=== PATIENT | male | born 1960 | race Caucasian/White ===

== ENCOUNTER 2023-01-28 13:26 | Outpatient (OUT) | payer BC, SELFPAY ==
[2023-01-28 16:41] LABS: Thyroid Stimulating Hormone 2.537 uIU/mL (0.358-3.740)
== END 2023-01-28 13:27 | disposition home or self-care (01) ==
LOC: LAB 13:27
PROVIDERS: Visit Provider Nurse Practitioner Adult Health
DX: G62.9 Polyneuropathy, unspecified (principal)
CPT/HCPCS: 36415; 82607; 82746; 84443

== ENCOUNTER 2023-03-06 08:30 | Outpatient (OUT) | payer BC, SELFPAY ==
--- NOTE | 2023-03-06 08:36 | MR_ITS ---
[address] [address] Patient Name: JULISSA ROWLAND MRN: [id number] date: 1960 Sex: M Assigned Patient Location: MRI Current Patient Location: MRI Accession/Order Number: [id number] Exam Date: 03/06/2023 09:05 Report Date: 03/06/2023 15:48 At the request of: MAIRO BILLINGS Procedure: MR lumbar spine wo con EXAM: MR lumbar spine wo con HISTORY: Left lower extremity pain with left leg radiculopathy for 6 months. Left leg weakness. M79.605 COMPARISON: Abdomen and pelvis CT from 04/16/2011. TECHNIQUE: Multiplanar and multisequence imaging of the lumbar spine was performed without contrast. FINDINGS: Anterolisthesis of L4 on L5 measures 2 mm. No acute fracture is identified. There is disc desiccation and anterior endplate spurring throughout the lumbar spine. There is mild disc space narrowing at T12-L1. A hemangioma in the L3 vertebral body on the right as demonstrated by increased T1 and T2 signal measuring 1.5 cm in diameter. No acute abnormality is identified involving visualized intrapelvic or intra-abdominal structures. There is mild curvature of the lumbar spine convex to the right. The visualized aorta is normal in diameter. The upper sacrum appears intact. No pars defects are identified. The conus terminates at the L1 level. L5-S1: There is a 3 mm broad-based disc protrusion with moderate bilateral facet arthropathy. Mild bilateral foraminal narrowing is evident without central stenosis. L4-L5: Anterolisthesis of L4 on L5 measures 2 mm with moderate to severe facet arthropathy. There is mild bilateral foraminal narrowing without central stenosis. L3-L4: There are small subarticular disc protrusions with moderate associated facet arthropathy resulting in minimal foraminal narrowing without central stenosis. L2-L3: There are small subarticular disc protrusions and mild associated facet arthropathy without central or foraminal stenosis. L1-L2: No focal disc herniation is evident. There is no central or foraminal stenosis. MR/MR lumbar spine wo con IMPRESSION: 1. There is grade 1 anterolisthesis of L4 on L5 related to moderate to severe facet arthropathy. 2. Discogenic change and facet arthropathy as described above resulting in mild foraminal narrowing at L4-L5 and L5-S1. 3. No central stenosis. No acute fracture. Electronically authenticated by: YUNIOR TAVAREZ Date: 03/06/2023 15:48
== END 2023-03-06 08:31 | disposition home or self-care (01) ==
LOC: MRI 08:30
PROVIDERS: Visit Provider Nurse Practitioner Adult Health
DX: M79.605 Pain in left leg (principal)
CPT/HCPCS: 72148

== ENCOUNTER 2024-05-04 14:07 | Outpatient (OUT) | payer BC, SELFPAY ==
--- NOTE | 2024-05-04 14:09 | XR_ITS ---
The [address] [address] Patient Name: JULISSA ROWLAND MRN: [id number] date: 1960 Sex: M Assigned Patient Location: [facility] Current Patient Location: Accession/Order Number: [id number] Exam Date: 05/04/2024 14:30 Report Date: 05/05/2024 07:23 At the request of: ALESSANDRA MURILLO Procedure: XR foot LT min 3V PROCEDURE: XR foot LT min 3V COMPARISON: 04/19/2024 HISTORY: Left Foot Pain FINDINGS: BONES:No acute fracture or dislocation. Moderate degenerative changes with marginal osteophyte formation most significant in the midfoot. Moderate enthesopathic spurring of the calcaneus SOFT TISSUES:Moderate dorsal forefoot soft tissue swelling EFFUSION:None visible. OTHER: Negative. XR/XR foot LT min 3V IMPRESSION: Soft tissue swelling, no acute fracture Electronically authenticated by: ELIZABETH PERSAUD Date: 05/05/2024 07:23
== END 2024-05-04 14:08 | disposition home or self-care (01) ==
LOC: RAD 14:07
PROVIDERS: Visit Provider Podiatrist Foot & Ankle Surgery
DX: M79.672 Pain in left foot (principal); M25.475 Effusion, left foot
CPT/HCPCS: 73630

== ENCOUNTER 2024-05-16 12:01 | Outpatient (OUT) | payer BC, SELFPAY ==
--- NOTE | 2024-05-16 13:08 | P.CN_ITS ---
Consult Note: HPI Data of Consult Patient: new to practice Consult date: 05/16/24 Requesting Physician: Apolonia Coleman MD Primary Care Provider: Non-Staff Physician, Consult Narrative Reason for consult: left leg and foot pain Narrative: 64yom who presents for evaluation. several months to years of worsening left lower extremity and foot pain. had bilateral tkas. lumbar mri significant for stenosis at l4-5 and l5-s1, as well as moderate to severe facet arthropathy at these levels. has engaged in >6 weeks of provider directed home exercises, without significant benefit. uses otc meds, has tried lyrica. denies adverse med side effects. cc:: CC: Apolonia Coleman MD Review of Systems ROS Status of ROS 10 or more systems reviewed and unremark able except as noted in history and below Exam Narrative Exam Narrative: Psych-alert and oriented x 3. Attentive and appropriate, constitutionally normal, displays normal mood and affect per situation. There are no obvious deficits in memory, reasoning, or intellect.? Skin-no obvious rashes, bruising, erythema noted to the patient's area of pain.? Extremities- extremities are warm with minimal edema and palpable pulses. Lumbar-tenderness to palpation noted in the lumbar spine and paraspinal musculature. Pain is elicited with flexion, extension, and lateral rotation of the lumbar spine. Range of motion is diminished with these motions. Facet loading maneuvers are positive. Strength-noted to be unremarkable with the exception of decreased strength rated at 4 out of 5 in left anterior tibialis, posterior tibialis. Sensory-no notable sensory deficits in the bilateral lower extremities to touch or pinprick in all dermatomal distributions with the exception to decreased sensation to the left L4, L5, S1 dermatomal distribution Coordination remains intact.? Gait remains non-antalgic. Assessment and Plan Assessment and Plan (1) Lumbar stenosis with neurogenic claudication: (2) Lumbar spondylosis: Plan 64yom who presents for evaluation. failed conservative measures, as noted. imaging reviewed, as noted. given symptoms and imaging, prudent to attempt left l4-5, l5-s1 tfesi under fluoroscopic guidance. he is in agreement. meds reviewed, no changes. follow up after procedure.
== END 2024-05-16 12:02 | disposition home or self-care (01) ==
LOC: PM 12:02
PROVIDERS: Visit Provider Anesthesiology
DX: M48.062 Spinal stenosis, lumbar region with neurogenic claudication (principal); M47.816 Spondylosis without myelopathy or radiculopathy, lumbar region
CPT/HCPCS: G0463

== ENCOUNTER 2024-06-06 08:01 | Day surgery (SDC) | payer BC, SELFPAY ==
[2024-06-06 08:37] VITALS: BP 165/90; PULSE 75; TEMP 36.8; O2SAT 97
[2024-06-06 09:12] VITALS: BP 189/95; BP 201/96; PULSE 77; PULSE 80; O2SAT 95
--- NOTE | 2024-06-06 09:16 | P.ON_ITS ---
Date of procedure: 06/06/24 Pre-op diagnosis: Pain due to lumbar stenosis with neurogenic claudication Post-op diagnosis: same as pre-op Procedure: Procedure: Left L4-5, L5-S1 transforaminal epidural steroid injection Medications: Bupivacaine 0.25% 2cc, lidocaine 2% 1cc, depomedrol 80mg The patient was seen and examined in the preoperative holding area.? Informed consent was obtained and placed on the chart.? Patient was brought to the medical procedure unit and placed in the prone position where a timeout was completed verifying the correct patient, procedure site, position, and planned special equipment using sterile aseptic technique.? Under direct fluoroscopic visualization a 25-gauge Quincke tipped spinal needle was advanced to the designated neural foramen where contrast dye was injected to show adequate spread.? The needle was inserted at level left L4-5. There was no evidence of vascular or adverse uptake.? Epidural spread was appreciated.? The above- mentioned injectate was then placed in a 1.5 mL aliquot preceded by negative aspiration.? The needle was removed. The needle was inserted and the procedure repeated at level left L5-S1.? The surgery site was covered.? Patient was taken to the postprocedural recovery area and monitored for an appropriate length of time before found suitable for discharge in the accompaniment of a responsible adult. Anesthesia: Local Surgeon: Apolonia Coleman Pathology: none sent Condition: stable Disposition: no change
[2024-06-06] MEDS: 0.9 % SODIUM CHLORIDE 10 ML SYRINGE - SALINE FLUSH INJ (09:17)
[2024-06-06] MEDS: IOHEXOL 240 MG/ML - 10 ML VIAL 12 MG INJ (09:17)
[2024-06-06] MEDS: LIDOCAINE HCL 2% 400 MG/20 ML MDV 3 ML INJ (09:17)
[2024-06-06] MEDS: BUPIVACAINE HCL 0.25% PF 25 MG/10 ML VIAL INJ (09:17)
[2024-06-06] MEDS: METHYLPREDNISOLONE ACETATE 80 MG/ML VIAL INJ (09:18)
== END 2024-06-06 09:23 | disposition home or self-care (01) ==
LOC: SURGOUT 08:01
PROVIDERS: Visit Provider Anesthesiology
DX: M48.062 Spinal stenosis, lumbar region with neurogenic claudication (principal)
CPT/HCPCS: 64483; 64484; J0665; J1010; Q9966

== ENCOUNTER 2024-06-15 13:42 | Outpatient (OUT) | payer BC, SELFPAY ==
--- NOTE | 2024-06-15 14:11 | PM.CN ---
Consult Note: HPI Data of Consult Patient: known to practice within the last 3 years Requesting Physician: Tea Baig NP Primary Care Provider: Non-Staff Physician, Consult Narrative Reason for consult: f/u Narrative: Júnior Chu a pleasant 64 year old male presents for evaluation of chronic left foot/LE pain. Pain now 3/10 increasing to 5/10, SARAH 16%. Pt reporting >50% improvement in pain and functional ability, feels much better, from recent left L4/5 L5/S1 TFESI. Reports moderate improvement in pain as well as ability to stand and walk for longer periods of time. denies falls/injury. no longer taking pregabalin 50mg BID due to ineffectiveness and brain fog. cc:: CC: Tea Baig NP Review of Systems ROS Status of ROS 10 or more systems reviewed and unremarkable except as noted in history and below Musculoskeletal Reports: extremity pain PFSH PFS Medical History (Updated 06/06/24 @ 08:35 by Nikki Pham) Neck pain ?M54.2 - Cervicalgia (ICD-10) Obesity ?E66.9 - Obesity, unspecified (ICD-10) Kidney stone ?N20.0 - Calculus of kidney (ICD-10) Sleep apnea ?G47.30 - Sleep apnea, unspecified (ICD-10) Surgical History Hx of total knee arthroplasty ?Z96.659 - Presence of unspecified artificial knee joint (ICD-10) Meds Home Medications and Allergies Home Medications ?Medication ?Instructions ?Recorded ?Confirmed ?Type tamsulosin 0.4 mg capsule mg PO 06/06/24 History Allergies Allergy/AdvReac Type Severity Reaction Status Date / Time No Known Drug Allergies Allergy Verified 06/06/24 08:40 Exam Constitutional Documenting provider has reviewed patient's vital signs: yes Common normals: no apparent distress, oriented x3, healthy appearing, alert and well nourished General appearance: cooperative Nutritional appearance: obese HENMT Common normals: normocephalic, hearing grossly normal bilaterally and moist oral mucous membranes Head and scalp: normocephalic Eye Common normals: PERRL Pupil: PERRL Neck & C-Spine Common normals: full ROM General: normal visual inspection Chest Common normals: inspection of chest normal Respiratory Common normals: normal respiratory effort, no retractions and no use of accessory muscles Back & Pelvis Lumbar spine/lower back: ROM limited, pain with ROM and straight leg raise positive left Other: sensation intact BLE strength 5/5 in BLE Neuro Common normals: oriented x3, CN's II-XII intact bilaterally, moves all extremities, no focal motor deficits, no sensory deficits noted and deep tendon reflexes 2+ bilaterally Sensorium/orientation: alert Motor exam: strength 5/5 throughout and no movement abnormalities noted Psych Common normals: mental status grossly normal, thought process normal, cooperative, affect normal, speech normal and activity/motor behavior normal Speech: normal speech Thought process: normal thought process Results Additional Findings Additional findings: If on a controlled substance or opioids, I have checked an [place] report on this patient and there are no aberrancies noted in the prescribing history.??If on a controlled substance or opioid a drug screen was completed and reviewed within the last year, and if there has not been a drug screen completed we ordered one today to monitor higher risk, state monitored pain medication use. As part of providing excellent, safe, comprehensive care, the following was completed at our patient's visit: 1. A medication reconciliation and review to ensure accurate knowledge of current/active medications, including asking our patients to inform us about any [id number] medications or herbal remedies/nutritional supplements/alternative remedies. 2. A review to specifically ensure our patients have had annual screening for screening for depression, screening for tobacco use, and screening for unhealthy alcohol use. For concerning screenings had a discussion with the patient, provided patient education, and recommended follow-up with primary care provider when appropriate. If patient noted with a risk of falling, they received education on strength, gait, and balance training to prevent future risk of falling. Portions of this note may have been carried over from the previous visit and updated as appropriate. Please note this office utilizes paper charting in addition to the electronic medical record. A list of current medications, vitals, and PMH is available there as the clinical staff outside of myself do not have access to [facility] charting during the clinic day operations. As part of providing quality comprehensive care the current medications, vitals, and PMH were reviewed in the paper chart. Assessment and Plan Assessment and Plan (1) Lumbar stenosis with neurogenic claudication: (2) Lumbar spondylosis: Plan continue HEP as tolerated dc lyrica f/u 3 months, sooner if needed
== END 2024-06-15 13:43 | disposition home or self-care (01) ==
LOC: PM 13:43
PROVIDERS: Visit Provider Nurse Practitioner
DX: M48.062 Spinal stenosis, lumbar region with neurogenic claudication (principal); M47.816 Spondylosis without myelopathy or radiculopathy, lumbar region
CPT/HCPCS: G0463

== ENCOUNTER 2024-08-31 10:20 | Outpatient (OUT) | payer BC, SELFPAY ==
--- OUTSIDE RECORDS SUMMARY | 2024-08-31 10:26 | XMS_ITS | CCD ---
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 Name Role Phone EBRAHEIM, ALEK Unavailable Unavailable EBRAHEIM, ALEK Unavailable Unavailable STEPANIC, KRISTIE C Unavailable Unavailable LUIS, FATOU Unavailable Unavailable [place] Unavailable Unavailable EBRAHEIM, ALEK Unavailable Unavailable ROXANN, MEG M Unavailable Unavailable ROXANN, MEG M Unavailable Unavailable ROXANN, MEG M Unavailable Unavailable LUIS, FATOU Unavailable Unavailable EBRAHEIM, ALEK Unavailable Unavailable EBRAHEIM, ALEK Unavailable Unavailable LUIS, FATOU Unavailable Unavailable LUIS, FATOU Unavailable Unavailable [place] Unavailable Unavailable EBRAHEIM, ALEK Unavailable Unavailable [place] Unavailable Unavailable CASABIANCA, ABEL Unavailable Unavailable EBRAHEIM, ALEK Unavailable Unavailable EBRAHEIM, ALEK Unavailable Unavailable EBRAHEIM, ALEK Unavailable Unavailable LUIS, FATOU Unavailable Unavailable STEPANIC, KRISTIE Unavailable Unavailable STEPANIC, KRISTIE Unavailable Unavailable LUIS, FATOU Unavailable Unavailable STEPANIC, KRISTIE Unavailable Unavailable STEPANIC, KRISTIE Unavailable Unavailable STEPANIC, KRISTIE Unavailable Unavailable LUIS, FATOU Unavailable Unavailable STEPANIC, KRISTIE Unavailable Unavailable SYDNEE LARSEN Unavailable Unavailable POTTERLADAN S Unavailable Unavailable MISC, DOCTOR Unavailable Unavailable MISC, DOCTOR Unavailable Unavailable MISC, DOCTOR Unavailable Unavailable ELIZABETH RICO V Unavailable Unavailable MISC, DOCTOR Unavailable Unavailable Bakari White Unavailable DO Bakari White Primary Care Provider [phone] DO Bakari White Attending Provider [phone] SALOMON Diehl Emergency Provider [phone] Unavailable Primary Care Provider Fatou Levy MD Primary Care Provider [phone] MALIKA, AJAY E Referring Unavailable MALIKA, AJAY E Admitting Unavailable MALIKA, AJAY E Attending Unavailable MALIKA, AJAY E Admitting Unavailable MALIKA, AJAY E Attending Unavailable BRANIECKI, BAKARI A Primary Care Unavailable SASHA CASTANEDA Consulting Unavailable MALIKA, AJAY E Admitting Unavailable MALIKA, AJAY E Attending Unavailable IVANIA MOSLEY Consulting Unavailable FATOU RIDLEY Primary Care Unavailable MALIKA, AJAY E Admitting Unavailable MALIKA, AJAY E Attending Unavailable BRANIECKI, BAKARI A Primary Care Unavailable MALIKA, AJAY E Admitting Unavailable MALIKA, AJAY E Attending Unavailable MALIKA, AJAY E Referring Unavailable NEVERAUSKAS, TYLER Anand Attending Unavailab le BRANIECKI, BAKARI A Primary Care Unavailable NEVERAUSKAS, TYLER Anand Attending Unavailab le NEVERAUSKAS, TYLER Anand Referring Unavailab le BRANIECKI, BAKARI A Primary Care Unavailable NEVERAUSKAS, TYLER Anand Attending Unavailab le NEVERAUSKAS, TYLER Anand Referring Unavailab le BRANIECKI, BAKARI A Primary Care Unavailable NEVERAUSKAS, TYLER Anand Attending Unavailab le NEVERAUSKAS, TYLER Anand Referring Unavailab le BRANIECKI, BAKARI A Primary Care Unavailable BRANIECKI, BAKARI A Primary Care Unavailable MERCEDEZ VILLANUEVA Attending Unavailable Je OCONNOR, Bakari Moise Primary Care Provider Je ELIZABETH, Bakari Primary Care Provider Je ELIZABETH, Bakari Attending Provider [phone] Je OCONNOR, Bakari Moise Primary Care Provider Manny OCONNOR, Elda Unavailable Darlene Salcedo Unavailable Eugenia Torres Unavailable Bakari White Admitting Unavailable Branieckmarkos, Bakari Attending Unavailable Je, Bakari Primary Care Unavailable Je, Bakari Admitting Unavailable Brandevancki, Bakari Attending Unavailable Je, Bakari Primary Care Unavailable Virginia OCONNOR, Apolonia Leung Attending Unavailable Virginia OCONNOR, Apolonia Leung Attending Unavailable DUSTY PATTERSON Attending Unavailable ALESSANDRA MURILLO Referring Unavailable LOUISA GUY Attending Unavailable ALESSANDRA MURILLO Referring Unavailable MARIO MENSAH Attending Unavailable DARLENE BRITO Attending Unavailable Unavailable Unavailable Unavailable Allergies Allergy Classification Reported Allergen(s) Allergy Type Date of Onset Reaction(s) Facility (2 sources) cephalexin Drug Allergy 11-02-2017 FAHAD SCOTT [facility] Repository (1 source) vancomycin; Translations: [VANCOMYCIN] Drug Allergy 11-20-2017 [facility] Repository (18 sources) Cephalexin Drug Allergy rash [facility] Other (1 source) Cephalexin Drug Allergy 04-19-2024 [facility] Repository Medications Current Medications Medication Drug Class(es) Dates Sig (Normalized) Sig (Original) acetaminophen 325 mg / HYDROcodone bitartrate 5 mg oral tablet (9 sources) Opioid Agonist Start: 06-13-2022 End: 06-20-2022 HYDROcodone-acetam inophen (NORCO) 5-325 MG per tablet Indications: S/P TKR (total knee replacement) using cement, left Take 1-2 tablets by mouth every 4 hours as needed for Pain for up to 7 days. Max Daily Amount: 12 tablets 40 tablet 0 06/13/2022 06/20/2022 Active Start: 06-12-2022 HYDROcodone-ac etaminophen (NORCO) 5-325 MG per tablet 1 tablet Start: 01-29-2022 End: 04-19-2024 take 1 tablet by mouth every six hours as needed for pain Hydrocodone-Acetaminophen 5-325 mg table t Discontinued 1 TAB PO Q6H as needed for pain 05 03January 29, 2022 April 19, 2024 2:16pm Start: 01-29-2022 take 1 tablet by arabella th every six hours Hydrocodone-Acetaminophen Active 1 TAB P O Q6H 12 January 29, 2022 [id number] 200 actuat albuterol 0.09 mg/actuat metered dose inhaler (3 sources) beta2-Adrenergic Agonist Start: 05-04-2022 take 2 puff(s) by inhalation every four hours as needed Albuterol Sulfate HFA 108 (90 Base) MCG/ACT 2 puffs as needed Inhalation every 4 hrs May, Active Start: 06-03-2021 Albuterol Sulfate 90 mcg/actuation HFA aerosol inhaler (2 sources) Start: 07-11-2024 Albuterol Sulfate 90 mcg/actuation HFA aerosol inhaler Active 2 INH INHALATION EVERY 4-6 HOURS as needed for shortness of breath or wheezing 6.7 July 11, 2024 12:00am azithromycin 250 mg oral tablet (2 sources) Macrolide Antimicrobial Start: 05-23-2022 Zithromax Z-Sang 250 MG 2 tablets on the first day, then 1 tablet daily for 4 days Orally Once a day for 5 day(s) May, Active benzocaine 6 mg / menthol 10 mg oral lozenge (1 source) Standardized Chemical Allergen Start: 06-12-2022 Benzocaine-Menthol (CEPACOL) 1 lozenge benzonatate 200 mg oral capsule (1 source) Non-narcotic Antitussive Start: 07-15-2024 take 1 capsule by mouth three times daily as needed for cough Benzonatate 200 mg capsule Active 200 MG PO Three times daily as needed for cough July 15, 2024 12:00am DULoxetine 30 mg delayed release oral capsule (9 sources) Serotonin and Norepinephrine Reuptake Inhibitor Start: 03-02-2024 End: 05-31-2024 take 1 capsule by mouth in the morning DULoxetine (Cymbalta) [address] capsule Indications: Polyneuropathy Take 1 capsule (30 mg) by mouth in the morning and 1 capsule (30 mg) before bedtime. Do not crush or chew.. 60 capsule 2 03/02/2024 Active 0.4 ml enoxaparin sodium 100 mg/ml prefilled syringe (1 source) Low Molecular Weight Heparin Start: 06-13-2022 enoxaparin (LOVENOX) injection 40 mg furosemide 20 mg oral tablet (2 sources) Loop Diuretic Start: 05-19-2023 take 1 tablet by mouth every twenty-four hours Furosemide 20 MG 1 tablet Orally Once a day for 90 days May, Active gabapentin 300 mg oral capsule (3 sources) Anti-epileptic Agent Start: 09-27-2023 End: 03-02-2024 take 1 capsule by mouth in the morning, then take 1 capsule by mouth in the evening, then take 1 capsule by mouth at bedtime gabapentin (Neurontin) 300 MG capsule Take 300 mg by mouth in the morning and 300 mg in the evening and 300 mg before bedtime. 09/27/2023 03/02/2024 Discontinued (Ineffective) ipratropium bromide 0.042 mg/actuat metered dose nasal spray (2 sources) Anticholinergic take 2 spray(s) by inhalation three times daily Ipratropium [place] 0.06 % 2 sprays in each nostril Inhalation Three times a day for 30 day(s) Active pregabalin 50 mg oral capsule (6 sources) Start: 04-13-2024 End: 06-12-2024 take 1 capsule by mouth in the morning pregabalin (Lyrica) 50 MG capsule Indications: Polyneuropathy Take 1 capsule (50 mg) by mouth in the morning and 1 capsule (50 mg) before bedtime. 60 capsule 1 04/13/2024 Active rivaroxaban 10 mg oral tablet (1 source) Factor Xa Inhibitor Start: 06-13-2022 take 1 tablet by mouth once daily at breakfast rivaroxaban (XARELTO) 10 MG TABS tablet Take 1 tablet by mouth daily (with breakfast) 12 tablet 0 06/13/2022 Active rOPINIRole 0.25 mg oral tablet (1 source) Nonergot Dopamine Agonist Start: 11-24-2022 take 1 tablet by mouth once daily at bedtime rOPINIRole HCl 0.25 MG 1 tablet 1 to 3 hours before bedtime Orally Once a day for 30 day(s) Oct, Active tiZANidine 4 mg oral tablet (5 sources) Central alpha-2 Adrenergic Agonist Start: 01-13-2022 take 1 tablet by mouth every eight hours tiZANidine HCl 4 MG 1 tablet as needed Orally Three times a day for 10 day(s) Dec, Active Completed/Discontinued Medications Medication Drug Class(es) Dates Sig (Normalized) Sig (Original) acetaminophen 325 mg oral tablet (3 sources) Start: 06-12-2022 End: 06-12-2022 take 650 mg by mouth every six hours, then take 4000 mg by mouth every twenty-four hours 650 mg, Oral, EVERY 6 HOURS, First dose on Whit 06/12/22 at 1600, Until Discontinued Maximum dose of acetaminophen is 4000 mg from all sources in 24 hours. Post-op Start: 06-09-2022 End: 06-09-2022 acetaminophen (TYLENOL) tabl et 650 mg calcium chloride 0.0014 meq/ ml / potassium chloride 0.004 meq/ml / sodium chloride 0.103 meq/ml / sodium lactate 0.028 meq/ml injectable solution (3 sources) Start: 06-12-2022 End: 06-13-2022 IntraVENous, at 80 mL/hr, CONTINUOUS, Starting on Thu06/12/22 at 1600 [place] when taking fluids well Post-op Start: 06-12-2022 End: 06-12-2022 lactated ringers infusion Start: 06-09-2022 lactated ringe rs infusion ceFAZolin 1000 mg injection (2 sources) Cephalosporin Antibacterial Start: 06-12-2022 End: 06-13-2022 ceFAZolin (ANCEF) 1 g injection ceFAZolin (ANCEF) 3000 mg in dextrose 5 % 100 mL IVPB (2 sources) Start: 06-12-2022 End: 06-13-2022 3,000 mg, IntraVENous, EVERY 8 HOURS, 2 doses, First dose on Thu06/12/22 at 1830, Last dose on Thu06/13/22 at 0230 Antimicrobial Indications: Surgical Prophylaxis Post-op Start: 06-12-2022 End: 06-12-2022 ceFAZolin (ANCEF) 3000 mg in dextrose 5 % 100 mL IVPB cefTRIAXone (17 sources) Cephalosporin Antibacterial Start: 04-17-2017 Rocephin 500 mg Apr, celecoxib 200 mg oral capsule (20 sources) Nonsteroidal Anti-inflammatory Drug Start: 06-12-2022 celecoxib (CELEBREX) capsule 400 mg Start: 06-09-2022 celecoxib (BRISA EBREX) capsule 400 mg Start: 01-29-2022 End: 04-19-2024 take 1 capsule by mouth twice daily as needed for pain Celecoxib 200 mg capsule Discontinued 200 MG PO Twice daily as needed for pain 180 90 August 27, 2023 9:56am April 19, 2024 2:16pm Start: 01-29-2022 take 200 mg by mouth twice daily Celecoxib Active 200 MG PO Twice daily January 29, 2022 12:00am End: 03-02-2024 take 1 capsule by mouth twice daily as needed for pain celecoxib (CeleBREX) 200 MG capsule TAKE 1 CAPSULE BY MOUTH TWICE DAILY NEEDED FOR PAIN 03/02/2024 Discontinued (Therapy completed) colchicine 0.6 mg oral tablet (2 sources) Start: 03-30-2023 Colchicine 0.6 MG 2 tablets now and 1 tablet in 2 hrs for gout flare Orally as directed for 1 days Mar, Not-Taking/PRN cyclobenzaprine hydrochloride 10 mg oral tablet (8 sources) Muscle Relaxant Start: 01-29-2022 End: 04-19-2024 take 1 tablet by mouth three times daily as needed for pain Cyclobenzaprine 10 mg tablet Discontinued 10 MG PO Three times daily as needed for Pain January 28, 2022 11:00pm April 19, 2024 2:16pm Start: 01-29-2022 take 10 mg by mouth three times daily Cyclobenzaprine Active 10 MG PO Three times daily January 29, 2022 12:00am Start: 01-08-2022 take 1 tablet by arabella th three times daily as needed Cyclobenzaprine HCl 10 MG 1 tablet Orally Three times a day as needed for 10 day(s) Dec, Active dimenhyDRINATE 50 mg oral ta blet (2 sources) Start: 06-12-2022 End: 06-12-2022 dimenhyDRINATE (DRAMAMINE) tablet 50 mg Start: 06-09-2022 End: 06-09-2022 dimenhyDRINATE (DRAMAMINE) t ablet 50 mg 2 ml fentaNYL 0.05 mg/ml injection (2 sources) Opioid Agonist Start: 06-12-2022 End: 06-12-2022 50 mcg, IntraVENous, EVERY 5 MIN PRN, 4 doses, Starting on Whit 06/12/22 at 1421, Until Whit 06/12/22 at 1515, Pain Severe (7-10) Phase I - Initial therapy for severe pain. PACU only Start: 06-12-2022 End: 06-12-2022 25 mcg, IntraVENous, EVERY 5 MIN PRN, 4 doses, Starting on Whit 06/12/22 at 1421, Until Whit 06/12/22 at 1515, Pain Moderate (4-6) Phase I - Initial therapy for moderate pain. PACU only 150 ml glucose 50 mg/ml inje ction (2 sources) Start: 06-12-2022 End: 06-13-2022 dextrose 5 % solution hyaluronate (20 sources) Start: 03-02-2017 Euflexxa 02 Oc t2016 2 mL Start: 02-23-2017 Euflexxa 25 Se p, 2016 1 mL Start: 02-16-2017 Euflexxa 18 Se p, 2016 2 mL Start: 01-26-2017 Euflexxa 28 Au g, 2016 Start: 01-19-2017 Euflexxa 21 Au g2016 2 mL Start: 2017 Euflexxa 14 Au g2016 2 mL methylPREDNISolone 4 mg oral tablet (20 sources) Corticosteroid Start: 07-11-2024 End: 07-19-2024 take 1 tablet by mouth once Methylprednisolone (Medrol (Sang)) 4 mg tablets,dose pack Discontinued 0 PO per package directions July 11, 2024 12:00am July 19, 2024 7:39am PO PER PKG DIR Start: 06-03-2021 Start: 2017 Depo-Medrol 40 mg Dec, 1 mL Start: 12-08-2016 Depo-Medrol 40 mg Nov, 1 mL naproxen 500 mg oral tablet (7 sources) Nonsteroidal Anti-inflammatory Drug Start: 01-29-2022 End: 08-27-2023 take 1 tablet by mouth twice daily as needed for pain Naproxen (Naprosyn) 500 mg tablet Discontinued 500 MG PO Twice daily as needed for pain January 28, 2022 11:00pm August 27, 2023 9:57am Start: 01-29-2022 take 1 tablet by arabella th twice daily Naproxen (Naprosyn) 500 mg tablet Active 500 MG PO Twice daily January 29, 2022 12:00am oseltamivir 75 mg oral capsule (2 sources) Neuraminidase Inhibitor Start: 07-11-2024 End: 07-19-2024 take 1 capsule by mouth twice daily Oseltamivir (Tamiflu) 75 mg capsule Discontinued 75 MG PO Twice daily 03 05July 11, 2024 12:00am July 19, 2024 7:39am 5 ml sodium chloride 9 mg/ml injection (3 sources) Start: 06-12-2022 take 1 dose intravenously twice daily 5-40 mL, IntraVENous, EVERY 12 HOURS SCHEDULED (2 times per day), First dose on Whit 06/12/22 at 2100, Until Discontinued For Line Patency: Peripheral IV = 5 mL; Midline or Central Line = 10 mL/lumen.&nbs p; If following IV push medication, administer flush at same rate as the IV push. Flush volume is determined by type of infusion therapy being given. &nbsp ;For non-viscous solutions use: Periphe ral IV = 5 mL Midline or Central Line = 10 mL/lumen &nb sp;For viscous solutions (i.e. blood components, parenteral nutrition, contrast media, or after obtaining blood sample) use: Periphe ral IV = 10 mL Midline or Central Line = 20 mL/lumen Post-op Start: 06-12-2022 IntraVENous, a t 5-250 mL/hr, PRN, if patient receiving piggyback infusions and maintenance fluids are not ordered OR KVO fluids to protect IV site / prevent frequent line interruptions/ long duration, Starting on Whit 06/12/22 at 1536 For piggyback infusion, administer at same rate as piggyback for a total of 25 mL. Enter 25 mL into dose field and piggyback rate into rate field of order. If piggyback is infusing at a rate less than 100 mL/hr, enter 25 mL into dose field and 100 mL/hr into rate field of order. For KVO fluids, enter rate of 20 mL/hr or less into rate field of order. Post-op Start: 06-12-2022 take 5-40 mL intrave nously once as needed 5-40 mL, IntraVENous, PRN, Starting on Whit 06/12/22 at 1536, Until Discontinued, Line Care, After every IV line use For Line Patency: Peripheral IV = 5 mL; Midline or Central Line = 10 mL/lumen. If following IV push medication, administer flush at same rate as the IV push. Flush volume is determined by type of infusion therapy being given. For non-viscous solutions use: Peripheral IV = 5 mL Midline or Central Line = 10 mL/lumen For viscous solutions (i.e. blood components, parenteral nutrition, contrast media, or after obtaining blood sample) use: Peripheral IV = 10 mL Midline or Central Line = 20 mL/lumen Post-op tamsulosin hydrochloride 0.4 mg oral capsule (6 sources) alpha-Adrenergic Annette Start: 05-27-2024 End: 07-11-2024 take 2 capsules by mouth once daily Tamsulosin (Flomax) 0.4 mg capsule Discontinued 0.8 MG PO Daily 180 May 27, 2024 9:04am July 11, 2024 3:28pm Start: 04-19-2024 End: 05-27-2024 take 1 capsule by mouth once daily Tamsulosin (Flomax) 0.4 mg capsule Discontinued 0.4 MG PO Daily April 19, 2024 12:00am May 27, 2024 9:04am tranexamic acid 650 mg oral tablet (3 sources) Antifibrinolytic Agent Start: 06-13-2022 End: 06-13-2022 tranexamic acid (LYSTEDA) tablet 1,300 mg Start: 06-12-2022 End: 06-12-2022 tranexamic acid (LYSTEDA) ta blet 1,300 mg Start: 06-09-2022 End: 06-09-2022 tranexamic acid (LYSTEDA) ta blet 1,300 mg Triamcinolone (17 sources) Corticosteroid Start: 03-22-2019 Kenalog -40 mg Mar, 40 mg Problems Active Problems Problem Classification Problem Date Documented Date Episodic/Chronic Calculus of urinary tract (11 sources) Kidney stone; Translations: [Calculus of kidney] Episodic Deficiency and other anemia (20 sources) Iron deficiency anemia; Translations: [Other iron deficiency anemias] 08-27-2023 Episodic Deficiency and other anemia (6 sources) Other iron deficiency anemias; Translations: [Other specified iron deficiency anemias] Onset: 04-13-2024 Episodic Disorders of lipid metabolism (20 sources) Mixed hyperlipidemia; Translations: [Mixed hyperlipidemia] Onset: 04-13-2024 Chronic Essential hypertension (1 source) Essential (primary) hypertension; Translations: [ESSENTIAL (PRIMARY) HYPERTENSION] Onset: 11-02-2017 Chronic Gout and other crystal arthropathies (16 sources) Gout; Translations: [Gout, unspecified] 08-27-2023 Chronic Hyperplasia of prostate (9 sources) Benign prostatic hyperplasia; Translations: [Benign prostatic hyperplasia without lower urinary tract symptoms] 04-19-2024 Chronic Influenza (2 sources) Influenza due to Influenza A virus; Translations: [Influenza due to other identified influenza virus with other respiratory manifestations] 07-11-2024 Episodic Mood disorders (13 sources) Mild major depression, single episode; Translations: [Major depressive disorder, single episode, mild] Chronic Open wounds of extremities (4 sources) Unspecified open wound, right knee, subsequent encounter; Translations: [UNSPECIFIED OPEN WOUND, RIGHT KNEE, SUBSEQUENT ENCOUNTER] Onset: 02-17-2018 Episodic Osteoarthritis (20 sources) Osteoarthritis of left knee joint; Translations: [Unilateral primary osteoarthritis, left knee] Onset: 06-09-2022 Chronic Other aftercare (11 sources) Patient encounter status; Translations: [Aftercare following joint replacement surgery] Onset: 05-08-2023 05-08-2023 Chronic Other and unspecified benign neoplasm (4 sources) Benign neoplasm of spinal meninges; Translations: [BENIGN NEOPLASM OF SPINAL MENINGES] Onset: 03-12-2018 Episodic Other connective tissue disease (3 sources) History of total knee arthroplasty; Translations: [Presence of left artificial knee joint] Onset: 06-12-2022 Chronic Other connective tissue disease (1 source) Presence of right artificial knee joint; Translations: [Presence of right artificial knee joint] Onset: 03-16-2023 Chronic Other connective tissue disease (1 source) Presence of left artificial knee joint; Translations: [Presence of left artificial knee joint] Onset: 06-12-2022 Chronic Other connective tissue disease (11 sources) Prepatellar bursitis; Translations: [Prepatellar bursitis, right knee] Episodic Other connective tissue disease (1 source) Neuralgia and neuritis, unspecified Episodic Other connective tissue disease (1 source) Pain in lower limb Onset: 02-24-2024 Episodic Other connective tissue disease (4 sources) Pain in left foot; Translations: [Pain in limb] Onset: 04-19-2024 04-19-2024 Episodic Other connective tissue disease (2 sources) Painful legs and moving toes; Translations: [Pain in left leg] 04-13-2024 Episodic Other connective tissue disease (2 sources) Other symptoms and signs involving the musculoskeletal system; Translations: [Other musculoskeletal symptoms referable to limbs] 06-29-2024 Episodic Other hereditary and degenerative nervous system conditions (19 sources) Restless legs; Translations: [Restless legs syndrome] Onset: 03-02-2024 03-02-2024 Chronic Other liver diseases (20 sources) Steatosis of liver; Translations: [Fatty (change of) liver, not elsewhere classified] 08-27-2023 Chronic Other liver diseases (3 sources) Fatty (change of) liver, not elsewhere classified; Translations: [Fatty (change of) liver, not elsewhere classified] Onset: 04-13-2024 Chronic Other nervous system disorders (11 sources) Neuropathy of lower limb; Translations: [Unspecified mononeuropathy of left lower limb] Chronic Other nervous system disorders (11 sources) Chronic pain; Translations: [Other chronic pain] Chronic Other nervous system disorders (13 sources) Difficulty walking; Translations: [Difficulty in walking, not elsewhere classified] Onset: 05-08-2023 05-08-2023 Chronic Other nervous system disorders (1 source) Neuropathy; Translations: [Polyneuropathy, unspecified] Onset: 03-02-2024 03-02-2024 Chronic Other nervous system disorders (14 sources) Polyneuropathy; Translations: [Polyneuropathy, unspecified] Onset: 03-02-2024 03-02-2024 Chronic Other nervous system disorders (2 sources) Painful legs and moving toes 04-13-2024 Chronic Other non-traumatic joint disorders (11 sources) Pain in left knee; Translations: [Pain in left knee] Episodic Other non-traumatic joint disorders (11 sources) Anterior knee pain; Translations: [Pain in right knee] Episodic Other non-traumatic joint disorders (11 sources) Knee pain; Translations: [Pain in right knee] Episodic Other nutritional; endocrine; and metabolic disorders (9 sources) Morbid (severe) obesity due to excess calories; Translations: [Morbid obesity] Onset: 11-02-2017 Chronic Other nutritional; endocrine; and metabolic disorders (16 sources) Body mass index 40+ - severely obese; Translations: [Body mass index (BMI) 50.0-59.9, adult] Chronic Other nutritional; endocrine; and metabolic disorders (15 sources) Morbid obesity; Translations: [Morbid (severe) obesity due to excess calories] Chronic Other nutritional; endocrine; and metabolic disorders (11 sources) Lipoprotein deficiency disorder; Translations: [Lipoprotein deficiency] Chronic Other nutritional; endocrine; and metabolic disorders (11 sources) Metabolic syndrome X; Translations: [Metabolic syndrome] Chronic Other nutritional; endocrine; and metabolic disorders (11 sources) Simple obesity ; Translations: [Other obesity due to excess calories] Chronic Other nutritional; endocrine; and metabolic disorders (5 sources) Severe obesity; Translations: [Morbid (severe) obesity due to excess calories] Chronic Other nutritional; endocrine; and metabolic disorders (5 sources) Obesity caused by energy imbalance; Translations: [Morbid (severe) obesity due to excess calories] 08-27-2023 Chronic Other upper respiratory disease (11 sources) Chronic rhinitis; Translations: [Chronic rhinitis] Chronic Other upper respiratory disease (11 sources) Seasonal allergic rhinitis; Translations: [Other seasonal allergic rhinitis] Chronic Peripheral and visceral atherosclerosis (4 sources) Peripheral vascular disease; Translations: [Other specified peripheral vascular diseases] 04-13-2024 Chronic Residual codes; unclassified (15 sources) Obstructive sleep apnea of adult; Translations: [Obstructive sleep apnea (adult) (pediatric)] Chronic Residual codes; unclassified (20 sources) Obstructive sleep apnea syndrome; Translations: [Obstructive sleep apnea (adult) (pediatric)] 08-27-2023 Chronic Residual codes; unclassified (5 sources) Obstructive sleep apnea (adult) (pediatric); Translations: [Obstructive sleep apnea (adult)(pediatric)] Chronic Spondylosis; intervertebral disc disorders; other back problems (4 sources) Low back pain; Translations: [Low back pain] 01-29-2022 Episodic Unclassified (5 sources) Body mass index (BMI) 50-59.9 , adult; Translations: [Obstructive sleep apnea (adult) (pediatric)] Onset: 11-02-2017 Chronic Unclassified (6 sources) Elevated C-reactive protein (CRP); Translations: [Encounter for screening for malignant neoplasm of prostate] Onset: 11-09-2017 Episodic Unclassified (2 sources) Sleep apnea, unspecified; Translations: [SLEEP APNEA, UNSPECIFIED] Onset: 11-09-2017 Unclassified (2 sources) Unknown / UNK(Unknown) Onset: 11-02-2017 Unclassified (2 sources) preadmission tessting; Translations: [preadmission tessting] Onset: 05-12-2022 Unclassified (1 source) Medical Screening Onset: 05-29-2023 Unclassified (1 source) Post op problem, cough Onset: 05-29-2023 Varicose veins of lower extremity (1 source) Varicose veins of bilateral lower extremities with pain; Translations: [Varicose veins of bilateral lower extremities with pain] Onset: 02-24-2024 Episodic Viral infection (2 sources) COVID-19; Translations: [COVID-19] Onset: 06-03-2021 Resolved: 06-03-2021 Past or Other Problems Problem Classification Problem Date Documented Date Episodic/Chronic Bacterial infection (2 sources) Methicillin resistant Staphylococcus aureus infection as the cause of diseases classified elsewhere; Translations: [METHICILLIN RESIS STAPH INFCT CAUSING DISEASES CLASSD ELSR] Onset: 11-02-2017 Episodic Chronic obstructive pulmonary disease and bronchiectasis (1 source) Bronchitis, not specified as acute or chronic; Translations: [Bronchitis, not specified as acute or chronic] Onset: 05-29-2023 Episodic Other aftercare (1 source) [facility] (current) use of anticoagulants; 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] Onset: 11-02-2017 Episodic Other connective tissue disease (2 sources) Other infective bursitis, right knee; Translations: [OTHER INFECTIVE BURSITIS, RIGHT KNEE] Onset: 11-02-2017 Episodic Other connective tissue disease (4 sources) Other bursitis of knee, right knee; Translations: [OTHER BURSITIS OF KNEE, RIGHT KNEE] Onset: 11-02-2017 Episodic Other hematologic conditions (1 source) Elevated erythrocyte sedimentation rate; Translations: [ELEVATED ERYTHROCYTE SED RATE] Onset: 11-09-2017 Episodic Other nervous system disorders (1 source) Other acute postprocedural pain; Translations: [OTHER ACUTE POSTPROCEDURAL PAIN] Onset: 11-02-2017 Episodic Other non-traumatic joint disorders (3 sources) Pain in right knee; Translations: [PAIN IN RIGHT KNEE] Onset: 10-30-2017 Episodic Residual codes; unclassified (2 sources) Localized edema; Translations: [Localized edema] Onset: 05-29-2023 Episodic Skin and subcutaneous tissue infections (1 source) Local infection of the skin and subcutaneous tissue, unspecified; Translations: [LOCAL INFECT SKIN SUBQ TISSUE UNS] Onset: 11-02-2017 Episodic Unclassified (3 sources) Low back pain, unspecified M54.50 Onset: 01-08-2022 Resolved: 01-23-2022 Results Test Name Value Interpretation Reference Range Facility Influenza A virus antibody t iter by complement fixationon 07-11-2024 FLUAV Ab CF (S) [Titer] Influenza A virus antibody titer by complement fixation [facility] Influenza virus B Ab [Titer] in Serum by Complement fixationon 07-11-2024 FLUBV Ab CF (S) [Titer] Influenza virus B Ab [Titer] in Serum by Complement fixation [facility] X-ray reportOrdered By: Chaparrita Shepherd on 04-19-2024 Study report [facility] [address] [place] [address] XRay Report Signed Patient: Júnior Rowland MR#: [id number] : 1960 Acct:[id number] Age/Sex: 64 / M ADM Date: 4 Loc: [facility] Room: Type: [facility] Attending Dr: Bakari White DO Copies to: Bakari White DO~ Ordering Provider: Bakari White DO Date of Service: 04/19/24 XR/XR foot LT min 3V*: M79.672 - Pain in left foot LEFT FOOT - 3 views CLINICAL DATA: Left foot pain for the past week involving the metatarsals and toes. No reported injury. COMPARISON: None AP, lateral and oblique views were obtained. There is no evidence of fracture or dislocation. Posterior and plantar calcaneal spurs are visualized. There isalso suspected degenerative change along the dorsum of the tarsals and metatarsal phalangeal joints. There are no significant soft tissue abnormalities. XR/XR foot LT min 3V* IMPRESSION: NO ACUTE BONY FINDINGS. Impression dictated by: Dianne Shepherd M.D.04/19/2024 4:20 PM Dictation Location: [place] [address] Transcribed By: [facility] 04/19/24 1620 Dictated By: Dianne Shepherd MD 04/19/24 1618 Signed By: 04/19/24 1620 [facility] Work Phone: XR foot LT min 3V*on 024 XR foot LT min 3V* [facility] [address] [place] [address] XRay Report Signed Patient: Júnior Rowland MR#: [id number] : 1960 Acct:[id number] Age/Sex: 64 / M ADM Date: 04/19/24 Loc: [facility] Room: Type: [facility] Attending Dr: Bakari White DO Copies to: Bakari White DO Ordering Provider: Bakari White DO Date of Service: 04/19/24 XR/XR foot LT min 3V*: M79.672 - Pain in left foot LEFT FOOT - 3 views CLINICAL DATA: Left foot pain for the past week involving the metatarsals and toes. No reported injury. COMPARISON: None AP, lateral and oblique views were obtained. There is no evidence of fracture or dislocation. Posterior and plantar calcaneal spurs are visualized. There is also suspected degenerative change along the dorsum of the tarsals and metatarsal phalangeal joints. There are no significant soft tissue abnormalities. XR/XR foot LT min 3V* IMPRESSION: NO ACUTE BONY FINDINGS. Impression dictated by: Dianne Shepherd M.D.04/19/2024 4:20 PM Dictation Location: [place] [address] Transcribed By: [facility] 04/19/24 1620 Dictated By: Dianne Shepherd MD 04/19/24 1618 Signed By: 04/19/24 1620 Normal [facility] Alanine aminotransferase [En zymatic activity/volume] in Serum or PlasmaOrdered By: Bakari White on 04-13-2024 ALT [Catalytic activity/Vol] Alanine aminotransferase [Enzymatic activity/volume] in Serum or Plasma [facility] Albumin [Mass/volume] in Ser um or Plasma by Bromocresol green (BCG) dye binding methoOrdered By: Bakari White on 04-13-2024 Albumin BCG dye [Mass/Vol] Albumin [Mass/volume] in Serum or Plasma by Bromocresol green (BCG) dye binding metho 3.5-5.7 [facility] Alkaline phosphatase [Enzyma tic activity/volume] in Serum or PlasmaOrdered By: Bakari White on 04-13-2024 ALP [Catalytic activity/Vol] Alkaline phosphatase [Enzymatic activity/volume] in Serum or Plasma 34-104 [facility] Aspartate aminotransferase [ Enzymatic activity/volume] in Serum or PlasmaOrdered By: Bakari White on 04-13-2024 AST [Catalytic activity/Vol] Aspartate aminotransferase [Enzymatic activity/volume] in Serum or Plasma 13-39 [facility] Basophils Auto (Bld) [#/Vol] Ordered By: Bakari White on 04-13-2024 Basophils (Bld) [#/Vol] Automated basophil count 0.0-0.2 [facility] Basophils/100 WBC Auto (Bld) Ordered By: Bakari White on 04-13-2024 Basophils/100 WBC (Bld) Automated basophil % . [facility] Bilirubin.total [Mass/volume ] in Serum or PlasmaOrdered By: Bakari White on 04-13-2024 Bilirubin [Mass/Vol] Bilirubin.total [Mass/volume] in Serum or Plasma 0.3-1.0 [facility] Calcium [Mass/volume] in Ser um or PlasmaOrdered By: Bakari White on 04-13-2024 Calcium [Mass/Vol] Calcium [Mass/volume ] in Serum or Plasma 8.6-10.3 [facility] Carbon dioxide, total [Moles /volume] in Serum or PlasmaOrdered By: Bakari White on 04-13-2024 CO2 [Moles/Vol] Carbon dioxide, tota l [Moles/volume] in Serum or Plasma High 21.0-31.0 [facility] Chloride [Moles/volume] in S tobias or PlasmaOrdered By: Bakari White on 04-13-2024 Chloride [Moles/Vol] Chloride [Moles/vol ume] in Serum or Plasma 98-107 [facility] Cholesterol [Mass/volume] in Serum or PlasmaOrdered By: Bakari White on 04-13-2024 Cholesterol [Mass/Vol] Cholesterol [Mass/volume] in Serum or Plasma 140-200 [facility] Comment on above: Chol less than 200 m g/dl low riskChol 201-239 mg/dl borderline riskChol 240 mg/dl and greater high risk Cholesterol in HDL [Mass/vol ume] in Serum or PlasmaOrdered By: Bakari White on 04-13-2024 Cholesterol in HDL [Mass/Vol] Serum or plasma high density lipoprotein (HDL) cholesterol measurement [facility] Comment on above: HDL CHOL ATP-III CLA SSIFICATION Cardiovascular RiskHDL > or equal to 60 mg/dL LOWHDL < 40 mg/dL HIGH Cholesterol in LDL Calc [Mas s/Vol]Ordered By: Bakari White on 04-13-2024 Cholesterol in LDL [Mass/Vol] Cholesterol in LDL [Mass/volume] in Serum or Plasma by calculation High 0-100 [facility] Comment on above: LDL ATP III CLASSIFI CATIONLDL less than 100 mg/dL OptimalLDL 100-129 mg/dL Near or above optimalLDL 130-159 mg/dL Borderline highLDL 160-189 mg/dL HighLDL greater than 189 mg/dL Very high Cholesterol in VLDL Calc [Ma ss/Vol]Ordered By: Bakari White on 04-13-2024 Cholesterol in VLDL [Mass/Vol] Cholesterol in VLDL [Mass/volume] in Serum or Plasma by calculation [facility] Complete Blood Count Auto Di ffon 04-13-2024 Basophils (Bld) [#/Vol] 0.1 10*3/uL Normal 0.0-0.2 [facility] Comment on above: Order Comment: Reaso n for Exam Morbid (severe) obesity due to excess calories;Body mass ind Result Comment: PERF ORMED BY: [place] [address] PATHOLOGIST SPECIAL EDUCATION CURRICULUM SPECIALIST CHARLY JOSHI M.D. Performed By: #### P SAS, CMP, CBC, TSH3 wRFLX, LIPID #### [address] Basophils/100 WBC (Bld) 1.0 % Normal . [facility] Comment on above: Order Comment: Reaso n for Exam Morbid (severe) obesity due to excess calories;Body mass ind Performed By: #### P SAS, CMP, CBC, TSH3 wRFLX, LIPID #### [address] Eosinophils (Bld) [#/Vol] 0.2 10*3/uL Normal 0.0-0.45 [facility] Comment on above: Order Comment: Reaso n for Exam Morbid (severe) obesity due to excess calories;Body mass ind Performed By: #### P SAS, CMP, CBC, TSH3 wRFLX, LIPID #### [address] Eosinophils/100 WBC (Bld) 3.3 % Normal . [facility] Comment on above: Order Comment: Reaso n for Exam Morbid (severe) obesity due to excess calories;Body mass ind Performed By: #### P SAS, CMP, CBC, TSH3 wRFLX, LIPID #### [address] Erythrocyte distribution width (RBC) [Ratio] 14.1 % Normal 12.0-14.8 [facility] Comment on above: Order Comment: Reaso n for Exam Morbid (severe) obesity due to excess calories;Body mass ind Performed By: #### P SAS, CMP, CBC, TSH3 wRFLX, LIPID #### [address] Hematocrit (Bld) [Volume fraction] 39.4 % Normal 38.8-50.0 [facility] Comment on above: Order Comment: Reaso n for Exam Morbid (severe) obesity due to excess calories;Body mass ind Performed By: #### P SAS, CMP, CBC, TSH3 wRFLX, LIPID #### [address] Hemoglobin (Bld) [Mass/Vol] 13.1 g/dL Normal 13.0-17.0 [facility] Comment on above: Order Comment: Reaso n for Exam Morbid (severe) obesity due to excess calories;Body mass ind Performed By: #### P SAS, CMP, CBC, TSH3 wRFLX, LIPID #### [address] Lymphocytes (Bld) [#/Vol] 1.1 10*3/uL Normal 1.00-4.8 [facility] Comment on above: Order Comment: Reaso n for Exam Morbid (severe) obesity due to excess calories;Body mass ind Performed By: #### P SAS, CMP, CBC, TSH3 wRFLX, LIPID #### [address] Lymphocytes/100 WBC (Bld) 18.9 % Normal . [facility] Comment on above: Order Comment: Reaso n for Exam Morbid (severe) obesity due to excess calories;Body mass ind Performed By: #### P SAS, CMP, CBC, TSH3 wRFLX, LIPID #### [address] MCH (RBC) [Entitic mass] 28.4 pg Normal 27.5-35.2 [facility] Comment on above: Order Comment: Reaso n for Exam Morbid (severe) obesity due to excess calories;Body mass ind Performed By: #### P SAS, CMP, CBC, TSH3 wRFLX, LIPID #### [address] MCV (RBC) [Entitic vol] 85.6 fL Normal 83.5-101 [facility] Comment on above: Order Comment: Reaso n for Exam Morbid (severe) obesity due to excess calories;Body mass ind Performed By: #### P SAS, CMP, CBC, TSH3 wRFLX, LIPID #### [address] Mean Corpuscular HGB Conc 33.1 g/dL Normal 32.5-35.6 [facility] Comment on above: Order Comment: Reaso n for Exam Morbid (severe) obesity due to excess calories;Body mass ind Performed By: #### P SAS, CMP, CBC, TSH3 wRFLX, LIPID #### [address] Monocytes (Bld) [#/Vol] 0.4 10*3/uL Normal 0.0-0.8 [facility] Comment on above: Order Comment: Reaso n for Exam Morbid (severe) obesity due to excess calories;Body mass ind Performed By: #### P SAS, CMP, CBC, TSH3 wRFLX, LIPID #### [place] [address] [place] Monocytes/100 WBC (Bld) 6.2 % Normal . [facility] Comment on above: Order Comment: Reaso n for Exam Morbid (severe) obesity due to excess calories;Body mass ind Performed By: #### P SAS, CMP, CBC, TSH3 wRFLX, LIPID #### [place] [address] [place] Neutrophils (Bld) [#/Vol] 4.1 10*3/uL Normal 1.8-7.7 [facility] Comment on above: Order Comment: Reaso n for Exam Morbid (severe) obesity due to excess calories;Body mass ind Performed By: #### P SAS, CMP, CBC, TSH3 wRFLX, LIPID #### [place] [address] [place] Neutrophils/100 WBC (Bld) 70.6 % Normal . [facility] Comment on above: Order Comment: Reaso n for Exam Morbid (severe) obesity due to excess calories;Body mass ind Performed By: #### P SAS, CMP, CBC, TSH3 wRFLX, LIPID #### [place] [address] [place] NRBC% 0.2 /100{WBC} Normal 0-0.5 [facility] Comment on above: Order Comment: Reaso n for Exam Morbid (severe) obesity due to excess calories;Body mass ind Performed By: #### P SAS, CMP, CBC, TSH3 wRFLX, LIPID #### [place] [address] [place] Platelet mean volume (Bld) [Entitic vol] 8.2 fL Normal 6.6-10.1 [facility] Comment on above: Order Comment: Reaso n for Exam Morbid (severe) obesity due to excess calories;Body mass ind Performed By: #### P SAS, CMP, CBC, TSH3 wRFLX, LIPID #### [address] Platelets (Bld) [#/Vol] 250 10*3/uL Normal 150-450 [facility] Comment on above: Order Comment: Reaso n for Exam Morbid (severe) obesity due to excess calories;Body mass ind Performed By: #### P SAS, CMP, CBC, TSH3 wRFLX, LIPID #### [facility] [address] RBC (Bld) [#/Vol] 4.60 10*6/uL Normal 3.90-5.60 [facility] Comment on above: Order Comment: Reaso n for Exam Morbid (severe) obesity due to excess calories;Body mass ind Performed By: #### P SAS, CMP, CBC, TSH3 wRFLX, LIPID #### [address] WBC (Bld) [#/Vol] 5.8 10*3/uL Normal 4.1-10.5 [facility] Comment on above: Order Comment: Reaso n for Exam Morbid (severe) obesity due to excess calories;Body mass ind Performed By: #### P SAS, CMP, CBC, TSH3 wRFLX, LIPID #### [address] [facility] 04-13-2024 Albumin [Mass/Vol] 4.3 g/dL Normal 3.5-5.7 [facility] Comment on above: Order Comment: Reaso n for Exam Morbid (severe) obesity due to excess calories;Body mass ind Performed By: #### P SAS, CMP, CBC, TSH3 wRFLX, LIPID #### [address] Albumin/Globulin [Mass ratio] 1.3 {ratio} Normal [facility] Comment on above: Order Comment: Reaso n for Exam Morbid (severe) obesity due to excess calories;Body mass ind Performed By: #### P SAS, CMP, CBC, TSH3 wRFLX, LIPID #### [address] ALP [Catalytic activity/Vol] 56 U/L Normal 34-104 [facility] Comment on above: Order Comment: Reaso n for Exam Morbid (severe) obesity due to excess calories;Body mass ind Performed By: #### P SAS, CMP, CBC, TSH3 wRFLX, LIPID #### [address] ALT [Catalytic activity/Vol] 19 U/L Normal 7-52 [facility] Comment on above: Order Comment: Reaso n for Exam Morbid (severe) obesity due to excess calories;Body mass ind Performed By: #### P SAS, CMP, CBC, TSH3 wRFLX, LIPID #### [address] Anion gap [Moles/Vol] 11.9 mmol/L Normal 6.0-15.0 [facility] Comment on above: Order Comment: Reaso n for Exam Morbid (severe) obesity due to excess calories;Body mass ind Performed By: #### P SAS, CMP, CBC, TSH3 wRFLX, LIPID #### [address] AST [Catalytic activity/Vol] 19 U/L Normal 13-39 [facility] Comment on above: Order Comment: Reaso n for Exam Morbid (severe) obesity due to excess calories;Body mass ind Performed By: #### P SAS, CMP, CBC, TSH3 wRFLX, LIPID #### [address] Bilirubin [Mass/Vol] 0.5 mg/dL Normal 0.3-1.0 [facility] Comment on above: Order Comment: Reaso n for Exam Morbid (severe) obesity due to excess calories;Body mass ind Performed By: #### P SAS, CMP, CBC, TSH3 wRFLX, LIPID #### [facility] [address] [place] [address] [place] Calcium [Mass/Vol] 9.3 mg/dL Normal 8.6-10.3 [facility] Comment on above: Order Comment: Reaso n for Exam Morbid (severe) obesity due to excess calories;Body mass ind Performed By: #### P SAS, CMP, CBC, TSH3 wRFLX, LIPID #### [facility] [address] Chloride [Moles/Vol] 102 mmol/L Normal 98-107 [facility] Comment on above: Order Comment: Reaso n for Exam Morbid (severe) obesity due to excess calories;Body mass ind Performed By: #### P SAS, CMP, CBC, TSH3 wRFLX, LIPID #### [facility] [address] [place] [address] [place] CO2 [Moles/Vol] 31.6 mmol/L High 21.0-31.0 [facility] Comment on above: Order Comment: Reaso n for Exam Morbid (severe) obesity due to excess calories;Body mass ind Performed By: #### P SAS, CMP, CBC, TSH3 wRFLX, LIPID #### [address] Creatinine [Mass/Vol] 0.86 mg/dL Normal 0.70-1.30 [facility] Comment on above: Order Comment: Reaso n for Exam Morbid (severe) obesity due to excess calories;Body mass ind Performed By: #### P SAS, CMP, CBC, TSH3 wRFLX, LIPID #### [facility] [address] [place] [address] [place] GFR/1.73 sq M.predicted MDRD (S/P/Bld) [Vol rate/Area] mL/min/{1.73_m2} Normal [facility] Comment on above: Order Comment: Reaso n for Exam Morbid (severe) obesity due to excess calories;Body mass ind Performed By: #### P SAS, CMP, CBC, TSH3 wRFLX, LIPID #### [facility] [address] [place] [address] [place] Globulin (S) [Mass/Vol] 3.4 g/dL Normal [facility] Comment on above: Order Comment: Reaso n for Exam Morbid (severe) obesity due to excess calories;Body mass ind Performed By: #### P SAS, CMP, CBC, TSH3 wRFLX, LIPID #### [facility] [address] [place] [address] [place] Glucose [Mass/Vol] 98 mg/dL Normal 70-100 [facility] Comment on above: Order Comment: Reaso n for Exam Morbid (severe) obesity due to excess calories;Body mass ind Result Comment: [place] Glucose Reference Range is dependent on time and content of last meal. Glucose of more than 200 mg/dL in a nonstressed, ambulatory subject supports the diagnosis of Diabetes Mellitus. ADA recommended reference range Performed By: #### P SAS, CMP, CBC, TSH3 wRFLX, LIPID #### [facility] [address] [place] [address] [place] Potassium [Moles/Vol] 4.5 mmol/L Normal 3.5-5.1 [facility] Comment on above: Order Comment: Reaso n for Exam Morbid (severe) obesity due to excess calories;Body mass ind Performed By: #### P SAS, CMP, CBC, TSH3 wRFLX, LIPID #### [facility] [address] [place] [id number] [facility] Protein [Mass/Vol] 7.7 g/dL Normal 6.4-8.9 [facility] Comment on above: Order Comment: Reaso n for Exam Morbid (severe) obesity due to excess calories;Body mass ind Performed By: #### P SAS, CMP, CBC, TSH3 wRFLX, LIPID #### [facility] [address] [place] [id number] [place] Sodium [Moles/Vol] 141 mmol/L Normal 136-145 [facility] Comment on above: Order Comment: Reaso n for Exam Morbid (severe) obesity due to excess calories;Body mass ind Performed By: #### P SAS, CMP, CBC, TSH3 wRFLX, LIPID #### [facility] [address] [place] [id number] [place] Urea nitrogen [Mass/Vol] 18 mg/dL Normal 7-25 [facility] Comment on above: Order Comment: Reaso n for Exam Morbid (severe) obesity due to excess calories;Body mass ind Performed By: #### P SAS, CMP, CBC, TSH3 wRFLX, LIPID #### [facility] [address] [place] [id number] [place] Creatinine [Mass/volume] in Serum or PlasmaOrdered By: Bakari White on 04-13-2024 Creatinine [Mass/Vol] Creatinine [Mass/v olume] in Serum or Plasma 0.70-1.30 [facility] Eosinophils Auto (Bld) [#/Vo l]Ordered By: Bakari White on 04-13-2024 Eosinophils (Bld) [#/Vol] Automated eosinophil count 0.0-0.45 [facility] Eosinophils/100 WBC Auto (Bl d)Ordered By: Bakari White on 04-13-2024 Eosinophils/100 WBC (Bld) Automated eosinophil % . [facility] Erythrocyte distribution wid th Auto (RBC) [Ratio]Ordered By: Bakari White on 04-13-2024 Erythrocyte distribution width (RBC) [Ratio] Erythrocyte distribution width [Ratio] by Automated count 12.0-14.8 [facility] Globulin Calc (S) [Mass/Vol] Ordered By: Bakari White on 04-13-2024 Globulin (S) [Mass/Vol] Serum globulin measurement by calculation (mass/volume) [facility] Glucose [Mass/volume] in Ser um or PlasmaOrdered By: Bakari White on 04-13-2024 Glucose [Mass/Vol] Glucose [Mass/volume ] in Serum or Plasma 70-100 [facility] Comment on above: ADA recommended refe rence rangeRandom Glucose Reference Range is dependent on time and content of last meal. Glucose of more than 200 mg/dL in a nonstressed, ambulatory subject supports the diagnosis of Diabetes Mellitus. Hematocrit Auto (Bld) [Volum e fraction]Ordered By: Bakari White on 04-13-2024 Hematocrit (Bld) [Volume fraction] Hematocrit [Volume Fraction] of Blood by Automated count 38.8-50.0 [facility] Hemoglobin [Mass/volume] in BloodOrdered By: Bakari White on 04-13-2024 Hemoglobin (Bld) [Mass/Vol] Hemoglobin [Mass/volume] in Blood 13.0-17.0 [facility] Leukocytes [#/volume] correc maggy for nucleated erythrocytes in Blood by Automated counOrdered By: Bakari White on 04-13-2024 WBC corrected for nucl RBC Auto (Bld) [#/Vol] Leukocytes [#/volume] corrected for nucleated erythrocytes in Blood by Automated coun 4.1-10.5 [facility] Lipid Panelon 04-13-2024 Cholesterol [Mass/Vol] 192 mg/dL Normal 140-200 Th e [facility] Comment on above: Order Comment: Reaso n for Exam Morbid (severe) obesity due to excess calories;Body mass ind Result Comment: Chol less than 200 mg/dl low risk Chol 201-239 mg/dl borderline risk Chol 240 mg/dl and greater high risk Performed By: #### P SAS, CMP, CBC, TSH3 wRFLX, LIPID #### [facility] [address] [id number] [place] Cholesterol in HDL [Mass/Vol] 47 mg/dL Normal 23-92 [facility] Comment on above: Order Comment: Reaso n for Exam Morbid (severe) obesity due to excess calories;Body mass ind Result Comment: HDL CHOL ATP-III CLASSIFICATION Cardiovascular Risk HDL > or equal to 60 mg/dL LOW HDL < 40 mg/dL HIGH Performed By: #### P SAS, CMP, CBC, TSH3 wRFLX, LIPID #### [facility] [address] [id number] [place] Cholesterol.total/Chol esterol in HDL [Mass ratio] 4.1 {ratio} Normal <5.0 [facility] Comment on above: Order Comment: Reaso n for Exam Morbid (severe) obesity due to excess calories;Body mass ind Performed By: #### P SAS, CMP, CBC, TSH3 wRFLX, LIPID #### [facility] [address] [id number] [place] LDL Cholesterol,Calculated 116 mg/dL High 0-100 [facility] Comment on above: Order Comment: Reaso n for Exam Morbid (severe) obesity due to excess calories;Body mass ind Result Comment: LDL ATP III CLASSIFICATION LDL less than 100 mg/dL Optimal LDL 100-129 mg/dL Near or above optimal LDL 130-159 mg/dL Borderline high LDL 160-189 mg/dL High LDL greater than 189 mg/dL Very high Performed By: #### P SAS, CMP, CBC, TSH3 wRFLX, LIPID #### [facility] [address] [place] [address] Triglyceride w/Reflex 147 mg/dL Normal 0-149 [facility] Comment on above: Order Comment: Reaso n for Exam Morbid (severe) obesity due to excess calories;Body mass ind Result Comment: TRIG ATP III CLASSIFICATION TRIG less than 150 mg/dL Normal TRIG 150-199 mg/dL Borderline high TRIG 200-500 mg/dL High TRIG greater than 500 mg/dL Very high Standard traceable to the Center for Disease Conrtrol and Prevention (CDC) test method. Performed By: #### P SAS, CMP, CBC, TSH3 wRFLX, LIPID #### [facility] [address] VLDL CHOLESTEROL 29 mg/dL Normal [facility] Comment on above: Order Comment: Reaso n for Exam Morbid (severe) obesity due to excess calories;Body mass ind Performed By: #### P SAS, CMP, CBC, TSH3 wRFLX, LIPID #### [facility] [address] Lymphocytes Auto (Bld) [#/Vo l]Ordered By: Bakari White on 04-13-2024 Lymphocytes (Bld) [#/Vol] Lymphocytes [#/volume] in Blood by Automated count 1.00-4.8 [facility] Lymphocytes/100 WBC Auto (Bl d)Ordered By: Bakari White on 04-13-2024 Lymphocytes/100 WBC (Bld) Lymphocytes/100 leukocytes in Blood by Automated count . [facility] MCH Auto (RBC) [Entitic mass ]Ordered By: Bakari White on 04-13-2024 MCH (RBC) [Entitic mass] MCH [Entitic mass] by Automated count 27.5-35.2 [facility] MCHC Auto (RBC) [Mass/Vol]Or dered By: Bakari White on 04-13-2024 MCHC (RBC) [Mass/Vol] MCHC [Mass/volume] by Automated count 32.5-35.6 [facility] MCV Auto (RBC) [Entitic vol] Ordered By: Bakari White on 04-13-2024 MCV (RBC) [Entitic vol] MCV [Entitic volume] by Automated count 83.5-101 [facility] Monocytes Auto (Bld) [#/Vol] Ordered By: Bakari White on 04-13-2024 Monocytes (Bld) [#/Vol] Automated blood monocyte count 0.0-0.8 [facility] Monocytes/100 WBC Auto (Bld) Ordered By: Bakari White on 04-13-2024 Monocytes/100 WBC (Bld) Automated monocyte % . [facility] Neutrophils Auto (Bld) [#/Vo l]Ordered By: Bakari White on 04-13-2024 Neutrophils (Bld) [#/Vol] Neutrophils [#/volume] in Blood by Automated count 1.8-7.7 [facility] Neutrophils/100 WBC Auto (Bl d)Ordered By: Bakari White on 04-13-2024 Neutrophils/100 WBC (Bld) Automated neutrophil % . [facility] No Panel InformationOrdered By: Bakari White on 04-13-2024 Estimated GFR (CKD-EPI) > 60.0 mL/Min [facility] Creatinine Clearance (Chem N/A [facility] Nucleated erythrocytes [Pres ence] in Blood by Automated countOrdered By: Bakari White on 04-13-2024 Nucleated RBC Auto Ql (Bld) Nucleated erythrocytes [Presence] in Blood by Automated count 0-0.5 [facility] PSA Screen (Yearly Only)on 06-13-2023 PSA Screen (Yearly Only) 0.180 ng/mL Normal 0.000-4.000 [facility] Comment on above: Order Comment: Reaso n for Exam Morbid (severe) obesity due to excess calories;Body mass ind Result Comment: Fredi al tumor marker results determined by assays using different manufacturers or methods may not be comparable. [facility] order selector and method: NADER CloudmachEL DXI, CHEMILUMINESCENT IMMUNOASSAY. PERFORMED BY: [facility] [address] [place] [address] PATHOLOGIST SPECIAL EDUCATION CURRICULUM SPECIALIST CHARLY JOSHI M.D. Performed By: #### P SAS, CMP, CBC, TSH3 wRFLX, LIPID #### [facility] [address] [place] [address] [facility] Platelet mean volume Auto (B ld) [Entitic vol]Ordered By: Bakari Wihte on 04-13-2024 Platelet mean volume (Bld) [Entitic vol] Platelet mean volume [Entitic volume] in Blood by Automated count 6.6-10.1 [facility] Platelets Auto (Bld) [#/Vol] Ordered By: Bakari White on 04-13-2024 Platelets (Bld) [#/Vol] Platelets [#/volume] in Blood by Automated count 150-450 [facility] Potassium [Moles/volume] in Serum or PlasmaOrdered By: Bakari White on 04-13-2024 Potassium [Moles/Vol] Potassium [Moles/v olume] in Serum or Plasma 3.5-5.1 [facility] Prostate specific Ag [Mass/v olume] in Serum or PlasmaOrdered By: Bakari White on 04-13-2024 Prostate specific Ag [Mass/Vol] Prostate specific Ag [Mass/volume] in Serum or Plasma 0.000-4.000 [facility] Comment on above: Serial tumor marker results determined by assays using different manufacturers or methods may not be comparable.[facility] order selector and method:JUNTA.CLEL DXI, CHEMILUMINESCENT IMMUNOASSAY. Protein [Mass/volume] in Ser um or PlasmaOrdered By: Bakari White on 04-13-2024 Protein [Mass/Vol] Protein [Mass/volume ] in Serum or Plasma 6.4-8.9 [facility] RBC Auto (Bld) [#/Vol]Ordere d By: Bakari White on 04-13-2024 RBC (Bld) [#/Vol] Erythrocytes [#/volu me] in Blood by Automated count 3.90-5.60 [facility] Serum or plasma albumin/glob ulin mass ratioOrdered By: Bakari White on 04-13-2024 Albumin/Globulin [Mass ratio] Serum or plasma albumin/globulin mass ratio [facility] Serum or plasma anion gap de terminationOrdered By: Bakari White on 04-13-2024 Anion gap [Moles/Vol] Serum or plasma an ion gap determination 6.0-15.0 [facility] Serum or plasma total choles terol/high density lipoprotein (HDL) cholesterol mass ratOrdered By: Bakari White on 04-13-2024 Cholesterol.total/Chol esterol in HDL [Mass ratio] Serum or plasma total cholesterol/high density lipoprotein (HDL) cholesterol mass rat <5.0 [facility] Sodium [Moles/volume] in Ser um or PlasmaOrdered By: Bakari White on 04-13-2024 Sodium [Moles/Vol] Sodium [Moles/volume ] in Serum or Plasma 136-145 [facility] Thyroid Stim Hormone w/Rflxo n 04-13-2024 Thyroid Stim Hormone w/Rflx 2.29 u[iU]/mL Normal 0.45-5.33 [facility] Comment on above: Order Comment: Reaso n for Exam Morbid (severe) obesity due to excess calories;Body mass ind Result Comment: PERF ORMED BY: [place] [address] PATHOLOGIST SPECIAL EDUCATION CURRICULUM SPECIALIST CHARLY JOSHI M.D. Performed By: #### P SAS, CMP, CBC, TSH3 wRFLX, LIPID #### [facility] [address] Thyrotropin [Units/volume] i n Serum or PlasmaOrdered By: Bakari White on 04-13-2024 TSH Qn Thyrotropin [Units/volume] in Serum or Plasma 0.45-5.33 [facility] Triglyceride [Mass/volume] i n Serum or PlasmaOrdered By: Bakari White on 04-13-2024 Triglyceride [Mass/Vol] Triglyceride [Mass/volume] in Serum or Plasma 0-149 [facility] Comment on above: TRIG ATP III CLASSIF ICATIONTRIG less than 150 mg/dL NormalTRIG 150-199 mg/dL Borderline highTRIG 200-500 mg/dL High TRIG greater than 500 mg/dL Very highStandard traceable to the Center for Disease Conrtrol and Prevention (CDC) test method. Urea nitrogen [Mass/volume] in Serum or PlasmaOrdered By: Bakari White on 04-13-2024 Urea nitrogen [Mass/Vol] Urea nitrogen [Mass/volume] in Serum or Plasma 12-23 [facility] WBC Auto (Bld) [#/Vol]Ordere d By: Bakari White on 04-13-2024 WBC (Bld) [#/Vol] Leukocytes [#/volume ] in Blood by Automated count 4.1-10.5 [facility] CBC AND AUTO DIFFon 05-29-20 ABSOLUTE BASOPHIL 0.0 X10E9/L Normal 0.0-0.2 [facility] Comment on above: Performed By: #### C ANAMIKA [facility], , 1986-09 #### [facility] ([id number]) [address] [place] [address] ABSOLUTE NEUTROPHIL 2.6 X10E9/L Normal 1.5-6.6 [facility] Comment on above: Performed By: #### Leila WILLSON [facility], , 1986-09 #### [facility] ([id number]) [address] [place] [address] 11803 Basophils/100 WBC (Bld) 0.8 % Normal [facility] Comment on above: Performed By: #### Leila WILLSON [facility], , 1986-09 #### [facility] ([id number]) [address] [place] [address] Eosinophils (Bld) [#/Vol] 0.1 10*3/uL Normal 0.0-0.4 [facility] Comment on above: Performed By: #### Leila WILLSON [facility], , 1986-09 #### [facility] ([id number]) [address] [place] [address] Eosinophils/100 WBC (Bld) 2.8 % Normal [facility] Comment on above: Performed By: #### Leila WILLSON CMP, , 1986-09 #### [facility] ([id number]) [address] [place] [address]1076 Erythrocyte distribution width (RBC) [Ratio] 15.4 % High 11.5-15.0 [facility] Comment on above: Performed By: #### Leila WILLSON [facility], , 1986-09 #### [facility] ([id number]) [address] [place] [address] Hematocrit (Bld) [Volume fraction] 33.8 % Low 39-49 [facility] Comment on above: Performed By: #### Leila WILLSON [facility], , 1986-09 #### [facility] ([id number]) [address] [place] [address] 39275 Hemoglobin (Bld) [Mass/Vol] 11.0 g/dL Low 13.0-17.0 [facility] Comment on above: Performed By: #### Leila WILLSON [facility], , 1986-09 #### [facility] ([id number]) [address] [place] [address]90[address] Lymphocytes (Bld) [#/Vol] 0.7 10*3/uL Low 1.0-3.5 [facility] Comment on above: Performed By: #### Leila WILLSON [facility], , 1986-09 #### [facility] ([id number]) [address] [place] [address] 18658 Lymphocytes/100 WBC (Bld) 16.7 % Normal [facility] Comment on above: Performed By: #### Leila WILLSON [facility], , 1986-09 #### [facility] ([id number]) [address] [place] [address] 36524 MCH (RBC) [Entitic mass] 26.6 pg Low 27-34 [facility] Comment on above: Performed By: #### Leila WILLSON [facility], , 1986-09 #### [facility] ([id number]) [address] [place] [address]378 MCHC (RBC) [Mass/Vol] 32.4 g/dL Normal 32-36 [facility] Comment on above: Performed By: #### Leila WILLSON [facility], 40942-6, 1986-09 #### [facility] ([id number]) [address] [place] [address]25 MCV (RBC) [Entitic vol] 82 fL Normal 80-100 [facility] Comment on above: Performed By: #### Leila WILLSON [facility], , 1986-09 #### [facility] ([id number]) [address] [place] [address] 16818 Monocytes (Bld) [#/Vol] 0.6 10*3/uL Normal 0-0.9 [facility] Comment on above: Performed By: #### Leila WILLSON [facility], , 1986-09 #### [facility] ([id number]) [address] [place] [address] 29615 Monocytes/100 WBC (Bld) 14.4 % Normal [facility] Comment on above: Performed By: #### eLila WILLSON [facility], , 1986-09 #### [facility] ([id number]) [address] [place] [address] 08714 Neutrophils/100 WBC (Bld) 65.3 % Normal [facility] Comment on above: Performed By: #### Leila WILLSON [facility], , 1986-09 #### [facility] ([id number]) [address] [place] [address] 31152 Platelet mean volume (Bld) [Entitic vol] 7.6 fL Normal 7-12 [facility] Comment on above: Performed By: #### Leila WILLSON CMP, , 1986-09 #### [facility] ([id number]) [address] [place] [address] 22018 Platelets (Bld) [#/Vol] 205 10*3/uL Normal 150-450 [facility] Comment on above: Performed By: #### C ANAMIKA CMP, 41242-9, 1986-09 #### [facility] ([id number]) [address] [place] [address] 80277 RBC COUNT 4.12 X10E12/L Normal 4.10-5.70 [facility] Comment on above: Performed By: #### C ANAMIKA CMP, , 1986-09 #### [facility] ([id number]) [address] [place] [address] 23683 WBC (Bld) [#/Vol] 4.0 10*3/uL Normal 4.0-11.0 [facility] Comment on above: Performed By: #### C ANAMIKA CMP, , 1986-09 #### [facility] ([id number]) [address] [place] [address] 72260 COMPREHENSIVE METABOLIC PANE [facility] 05-29-2023 Albumin [Mass/Vol] 4.1 g/dL Normal 3.2-5.3 [facility] Comment on above: Performed By: #### C ANAMIKA CMP, , 1986-09 #### [facility] ([id number]) [address] [place] [address] 95493 ALP [Catalytic activity/Vol] 56 U/L Normal 39-130 [facility] Comment on above: Performed By: #### C BCA, CMP, , 1986-09 #### [facility] ([id number]) [address] [place] [address] 28923 ALT [Catalytic activity/Vol] 22 U/L Normal 0-40 [facility] Comment on above: Performed By: #### C ANAMIKA, CMP, , 1986-09 #### [facility] ([id number]) [address] [place] [address] 26838 Anion gap [Moles/Vol] 5 mmol/L Normal 5-15 [facility] Comment on above: Performed By: #### C ANAMIKA [facility], , 1986-09 #### [facility] ([id number]) [address] [place] [address] 21515 AST [Catalytic activity/Vol] 25 U/L Normal 0-41 [facility] Comment on above: Performed By: #### C ANAMIKA [facility], , 1986-09 #### [facility] ([id number]) [address] [place] [address]40 Bilirubin [Mass/Vol] 0.7 mg/dL Normal 0.3-1.2 [facility] Comment on above: Performed By: #### Leila WILLSON CMP, , 1986-09 #### [facility] ([id number]) [address] [place] [address] 33921 Calcium [Mass/Vol] 8.7 mg/dL Normal 8.5-10.5 [facility] Comment on above: Performed By: #### C ANAMIKA [facility], , 1986-09 #### [facility] ([id number]) [address] [place] [address] 72881 Chloride [Moles/Vol] 105 mmol/L Normal 98-109 [facility] Comment on above: Performed By: #### Leila WILLSON [facility], 22470-2, 1987-09 #### [facility] ([id number]) [address] [place] [address] 53777 CO2 [Moles/Vol] 29 mmol/L Normal 22-32 [facility] Comment on above: Performed By: #### C ALL WILLSON, , 1986-09 #### [facility] ([id number]) [address] [place] [address] 52212 Creatinine [Mass/Vol] 0.93 mg/dL Normal 0.70-1.20 [facility] Comment on above: Result Comment: METH OD TRACEABLE TO IDMS STANDARD Performed By: #### C ALL WILLSON, 61661-5, 1986-09 #### [facility] ([id number]) [address] [place] [address] 42578 eGFR (CKD-EPI) NON-RACE DEPENDENT >90 Normal >59 [facility] Comment on above: Result Comment: Reported eGFR is based on the CKD-EPI 2020 equation that does not use a race coefficient. Performed By: #### C ALL WILLSON, 20409-3, 1986-09 #### [facility] ([id number]) [address] [place] [address] 46427 Glucose [Mass/Vol] 108 mg/dL High 65-99 [facility] Comment on above: Performed By: #### C ALL WILLSON, , 1986-09 #### [facility] ([id number]) [address] [place] [address] 90307 Potassium [Moles/Vol] 4.3 mmol/L Normal 3.5-5.0 [facility] Comment on above: Performed By: #### C ALL WILLSON, , 1986-09 #### [facility] ([id number]) [address] [place] [address] 83321 Protein [Mass/Vol] 8.3 g/dL High 6.0-8.0 [facility] Comment on above: Performed By: #### C ALL WILLSON, , 1986-09 #### [facility] ([id number]) [address] [place] [address] 74550 Sodium [Moles/Vol] 139 mmol/L Normal 134-146 [facility] Comment on above: Performed By: #### C ALL WILLSON, , 1986-09 #### [facility] ([id number]) [address] [place] [address] 77927 Urea nitrogen [Mass/Vol] 13 mg/dL Normal 5-27 [facility] Comment on above: Performed By: #### C BCA, CMP, 52037-5, 1986-09 #### [facility] ([id number]) [address] [place] [address] CRP [Mass/Vol]on 05-29-2023 C REACTIVE PROTEIN 5.8 mg/dL High 0.000-0.744 [facility] Comment on above: Performed By: #### C BCA, CMP, 57960-6, 1986-09 #### [facility] ([id number]) [address] [place] [address] CT CTA CHESTon 05-29-[address] CTA CHEST HISTORY: Shortness of breath. Negative d-dimer. Low to intermediate probability for pulmonary embolism. COMPARISON: None TECHNIQUE: Contiguous axial images are obtained of the Chest with IV contrast. Coronal and sagittal reconstructions were performed and reviewed. Sagittal and coronal reformatted images with 3-D Maximum intensity projection reconstructions constructed under concurrent physician supervision on a separate workstation. Automatic exposure control was utilized. All CT scans at this facility use dose modulation, iterative reconstruction, and/or weight based dosing when appropriate to reduce radiation dose to as low as reasonably achievable. FINDINGS: The visualized thyroid is unremarkable. No adrenal mass. Splenomegaly. No acute osseous abnormality. No cardiomegaly or pericardial effusion. Nonaneurysmal thoracic aorta. Heavy coronary artery calcifications. No enlarged mediastinal or hilar lymph nodes. No filling defects of the main pulmonary arteries, segmental branches, or major subsegmental branches to suggest emboli. Pulmonary trunk diameter: 3.5 cm, suggestive of pulmonary hypertension. The airways are patent without filling defect. No pneumothorax or pleural effusion. No consolidation. IMPRESSION: No evidence of large central, main, or lobar pulmonary embolism. Approved by Resident Tan Schwartz MD on 05/29/2023 1:30 PM Fady Burrows DO have personally reviewed the image(s) and agree with and/or edited the report Finalized by Fady St DO on 05/29/2023 2:26 PM Normal [facility] Fibrin D-dimer DDU (PPP) [Ma ss/Vol]on 05-29-2023 D DIMER 945 ng/mL DDU High <255 [facility] Comment on above: Result Comment: Results >=255ng/mL DDU: Results may be indicative of the presence of VTE. The use of the Wells score and further diagnostic tests should be considered. Elevated D-Dimer levels can also be associated with DIC, neoplasm, , trauma and liver disease. Elevated levels of rheumatoid factor may lead to an overestimation of the D-Dimer level. Performed By: #### C BCA, [facility], 76074-3, 1987-09 #### [facility] ([id number]) [address] [place] [address], [place] [address] SARS/FLU A+B/RSV by NAAT/Mol ecularon 05-29-2023 SARS/FLU A+B/RSV by NAAT/Molecular FLU A PCR Negative (qualifier value) FLU B PCR Negative (qualifier value) RSV by PCR Negative (qualifier value) SARS CoV 2 Detected (qualifier value) NOTE The Xpert Xpress SARS-CoV-2/Flu/RSV Plus test is a rapid, multiplexed real-time RT-PCR test intended for the simultaneous qualitative detection and differentiation of SARS-CoV-2, influenza A, influenza B and respiratory syncytial virus (RSV) viral RNA from individuals suspected of respiratory viral infection consistent with COVID-19 by their healthcare provider. This test has not been validated in asymptomatic patients. The Xpert Xpress SARS-CoV-2 test is intended for use by qualified and trained operators who are performing tests using either [employer] or [employer] systems and is limited to laboratories that meet the CLIA requirements to perform high and moderate complexity tests. The Xpert Xpress SARS-CoV-2/Flu/RSV Plus is only for use under the Food and Drug Administration's Emergency Use Authorization. Results are for the simultaneous detection and differentiation of SARS-CoV-2, influenza A, influenza B and RSV nucleic acids in clinical specimens. SARS-CoV-2, influenza A, influenza B and RSV RNA identified by this test are generally detectable in upper respiratory samples during the acute phase of infection. Positive results are indicative of the presence of the identified virus, but do not rule out bacterial infection or co-infection with other pathogens not detected by this test. Clinical correlation with patient history and other diagnostic information is necessary to determine patient infection status. The agent detected may not be the definite cause of disease. Negative results do not preclude SARS-CoV-2, influenza A, influenza B and RSV infection and should not be used as the sole basis for treatment or other patient management decisions. Negative results must be combined with clinical observations, patient history and epidemiological information. An Invalid result may occur with specimen-associated inhibition unable to be resolved with specimen repeat. Fact Sheet for Healthcare Providers: https://www.fda.gov/medi a/192454/download Fact Sheet for Patients: https://www.fda.gov/medi a/995179/download Normal [facility] Comment on above: Performed By: #### C OVFLR #### [facility] ([id number]) [address] [place] [address], [place] [address] XR KNEE RT 3 VWSon 3 XR KNEE RT 3 VWS XR KNEE RT 3 VWS XR KNEE RT 3 VWS 05/29/2023 12:49 PM INDICATION: Right knee pain COMPARISON: None TECHNIQUE: 3 views of the right knee were obtained Findings: Postsurgical changes of a knee arthroplasty. Arthroplasty components are in expected anatomic alignment. No evidence of fracture or dislocation. Atheromatous calcifications. Probable trace knee joint effusion. IMPRESSION: No acute osseous abnormality. Probable trace knee joint effusion. Finalized by Christopher Samson MD on 05/29/2023 12:57 PM Normal [facility] Hgb/Hcton 03-17-2023 Hematocrit (Bld) [Volume fraction] 31.6 % Low 40.7-50.3 [facility] Comment on above: Performed By: #### H H #### [facility] [address] [place] [address] Bicycle Courier: Elizabeth Sampson MD Hemoglobin (Bld) [Mass/Vol] 10.1 g/dL Low 13.0-17.0 [facility] Comment on above: Performed By: #### H H #### [address] [place] [address] Bicycle Courier: Elizabeth Sampson MD OPERATIVE REPORTon 3 OPERATIVE REPORT [address] [address] OPERATIVE REPORT PATIENT NAME: JÚNIOR ROWLAND : 1960 [facility] REC NO: [id number] ROOM: [facility] ACCOUNT NO: [id number] ADMIT DATE: 03/16/2023 PROVIDER: Ajay Galvan DATE OF PROCEDURE: 03/16/2023 PREOPERATIVE DIAGNOSIS: Degenerative arthritis of right knee. POSTOPERATIVE DIAGNOSIS: Degenerative arthritis of right knee. PROCEDURE PERFORMED: Right total knee replacement using a Lori Persona knee, size 10 cemented femoral component, size F stemmed tibial plateau with a stem extension, a 12-mm MC poly, and a 32-mm vitamin E patellar dome. SURGEON: Dr. Ajay Galvan. ANESTHESIA: General. DESCRIPTION OF PROCEDURE: The patient was brought into the operating room and placed in the supine position on the operating table. General anesthetic was administered. The patient's right lower extremity was prepped with ChloraPrep and draped in a sterile fashion. The patient had a previous midline incision from previous bursal infection. This scar was widened. The previous scar was elliptically excised. The incision was taken down. The skin was quite adherent to the underlying fascia over the patella and it was noted be on the thin side. It was peeled off with electrocautery. Flaps were created. The medial arthrotomy was then made along the medial border of the patellar tendon through the medial retinaculum and a medial quad snip was made at the superior pole of the patella. The knee joint was entered. No signs of infection have been noted anywhere. The patient had a lot of synovitis within the knee joint. Central drill hole was placed down the femoral canal and distal femoral cut was set at 5 degrees of valgus. Femoral tower marked for 3 degrees of external rotation and a size 10 four-in-one cutting block was then used. Surface of tibia was then osteotomized with the tibial jig. Remnants of menisci were removed. Posterior capsule was injected with 20 mL of the total joint compound. The undersurface of patella was then osteotomized. It was elected to go with a 32-mm patellar dome. [place] holes were placed. The knee was then cleansed with Simpulse with gentamicin in the irrigation solution. Subtotal synovectomy had been performed. Trial reduction was carried out. The knee was noted to be well balanced both in flexion and extension using a 12-mm MC poly. The trial components were then removed and tourniquet was inflated to 350 mmHg. Knee was again cleansed with Simpulse and dried. Methyl methacrylate was prepared. The tibial component was then cemented into place using methyl methacrylate with gentamicin. A second batch of cement also with gentamicin was used to cement the femoral component in place and finally the patellar dome was cemented into place. All excess cement was removed. The 12-mm poly was then inserted. Knee was well balanced both in flexion extension. The knee was again cleansed with Simpulse. Skin margins and deep fascial structures were injected with remainder of the total joint compound. Deep fascial layer was then closed with #1 Vicryl [id number] sutures over two Hemovac drains. Vancomycin powder had been sprinkled into the wound. Remainder of the gram of vancomycin was sprinkled in the subcutaneous layer and this was closed with 2-0 Vicryl followed by 3-0 Monocryl subcuticular stitch followed by a whipstitch in the skin. This was dressed with an Adaptic, fluffs, ABD, Kerlix roll, and an EDNA wrap from toe to groin. Tourniquet was released after the fascial layer was closed. The estimated blood loss was 600 mL. General anesthetic was discontinued. The patient was transferred to Recovery in a stable condition. MODIFIER #22: The patient has a BMI of 50.43. This required additional 5 minutes of setup time, additional 45 minutes for surgical time, and additional 10 minutes for a layered closure. AJAY GALVAN [id number] Doc#: [id number] CC: Normal [facility] MRSA, DNA, Nasalon 3 MRSA, DNA, Nasal Negative Normal NEG [facility] Comment on above: Result Comment: NEGA TIVE: MRSA DNA not detected by nucleic acid amplification. Results should be used as an adjunct to nosocomial control efforts to identify patients needing enhanced precautions. The test is not intended to identify patients with staphylococcal infections. Results should not be used to guide or monitor treatment for MRSA infections. Performed By: #### M RSANO #### [facility] [address] [place] [address] Bicycle Courier: Phan Dos Santos MD [facility] [address] [place] [address] Bicycle Courier: Elizabeth Sampson MD Basic Metabolic Profon 02-18 Anion gap [Moles/Vol] 9 mmol/L Normal 9-17 [facility] Comment on above: Performed By: #### B PAULETTE, CDP #### [facility] [address] [place], [place] [id number] Bicycle Courier: Elizabeth Sampson MD BUN/CRE Ratio 26 High 9-20 [facility] Comment on above: Performed By: #### B PAULETTE, CDP #### [facility] [address] [place] [address] Bicycle Courier: Elizabeth Sampson MD Calcium [Mass/Vol] 9.5 mg/dL Normal 8.6-10.4 [facility] Comment on above: Performed By: #### B MP, CDP #### [facility] [address] [place] [address] Bicycle Courier: Elizabeth Sampson MD Chloride [Moles/Vol] 102 mmol/L Normal 98-107 [facility] Comment on above: Performed By: #### B MP, CDP #### [facility] [address] [place] [address] Bicycle Courier: Elizabeth Sampson MD CO2 [Moles/Vol] 27 mmol/L Normal 20-31 [facility] Comment on above: Performed By: #### B MP, CDP #### [facility] [address] [place] [address] Bicycle Courier: Elizabeth Sampson MD Creatinine [Mass/Vol] 0.8 mg/dL Normal 0.7-1.2 [facility] Comment on above: Performed By: #### B PAULETTE, CDP #### [facility] [address] [place], [place] [id number] Bicycle Courier: Elizabeth Sampson MD GFR/1.73 sq M.predicted among non-blacks MDRD (S/P/Bld) [Vol rate/Area] mL/min/{1.73_m2} Normal >60 [facility] Comment on above: Result Comment: These results are not intended for use in patients <18 years of age. eGFR results are calculated without a race factor using the 2020 CKD-EPI equation. Careful clinical correlation is recommended, particularly when comparing to results calculated using previous equations. The CKD-EPI equation is less accurate in patients with extremes of muscle mass, extra-renal metabolism of creatine, excessive creatine ingestion, or following therapy that affects renal tubular secretion. Performed By: #### B PAULETTE, CDP #### [facility] [address] [place] [address] Bicycle Courier: Elizabeth Sampson MD Glucose [Mass/Vol] 85 mg/dL Normal 70-99 [facility] Comment on above: Performed By: #### B PAULETTE, CDP #### [facility] [address] [place], [place] [id number] Bicycle Courier: Elizabeth Sampson MD Potassium [Moles/Vol] 4.2 mmol/L Normal 3.7-5.3 [facility] Comment on above: Performed By: #### B PAULETTE, CDP #### [facility] [address] [place] [address] Bicycle Courier: Elizabeth Sampson MD Sodium [Moles/Vol] 138 mmol/L Normal 135-144 [facility] Comment on above: Performed By: #### B PAULETTE, CDP #### [facility] [address] [place], [place] [id number] Bicycle Courier: Elizabeth Sampson MD Urea nitrogen [Mass/Vol] 21 mg/dL Normal 8-23 [facility] Comment on above: Performed By: #### B PAULETTE, CDP #### [facility] [address] [place], [place] [id number] Bicycle Courier: Elizabeth Sampson MD CBC with Diffon 02-18-2023 Abs. Basophil 0.04 k/uL Normal 0.00-0.20 [facility] Comment on above: Performed By: #### B PAULETTE, CDP #### [facility] [address] [place] [address] Bicycle Courier: Elizabeth Sampson MD Abs.Imm.Granulocyte <0.03 Normal 0.00-0.30 [facility] Comment on above: Performed By: #### B PAULETTE, CDP #### [address] [place], [place] [address] Bicycle Courier: Elizabeth Sampson MD Abs.Neutrophil (Seg) 2.98 k/uL Normal 1.50-8.10 [facility] Comment on above: Performed By: #### B PAULETTE, CDP #### [address] [place] [address] Bicycle Courier: Elizabeth Sampson MD Basophils/100 WBC (Bld) 1 % Normal 0-2 [facility] Comment on above: Performed By: #### Durga CALDWELL, CDP #### [facility] [address] [place] [address] [address]. [place], [facility] Bicycle Courier: Elizabeth Sampson MD Eosinophils (Bld) [#/Vol] 0.16 10*3/uL Normal 0.00-0.44 [facility] Comment on above: Performed By: #### Durga CALDWELL, CDP #### [facility] [address] [place] [address] Dr[address] [place], [place] [id number] Bicycle Courier: Elizabeth Sampson MD Eosinophils/100 WBC (Bld) 3 % Normal 1-4 [facility] Comment on above: Performed By: #### B MP, CDP #### [facility] [address] [place], [place] [address] Bicycle Courier: Elizabeth Sampson MD Erythrocyte distribution width (RBC) [Ratio] 13.5 % Normal 11.8-14.4 [facility] Comment on above: Performed By: #### B MP, CDP #### [facility] [address] [place], [place] [phone] Bicycle Courier: Elizabeth Sampson MD Hematocrit (Bld) [Volume fraction] 39.9 % Low 40.7-50.3 [facility] Comment on above: Performed By: #### B PAULETTE, CDP #### [address] [place], [place] [address]183 Bicycle Courier: Elizabeth Sampson MD Hemoglobin (Bld) [Mass/Vol] 12.7 g/dL Low 13.0-17.0 [facility] Comment on above: Performed By: #### B PAULETTE, CDP #### [address] [place], [place] [address] Bicycle Courier: Elizabeth Sampson MD Immature granulocytes/100 WBC (Bld) 0 % Normal 0 [facility] Comment on above: Performed By: #### B PAULETTE, CDP #### [facility] [address] [place], [place] [phone] Bicycle Courier: Elizabeth Sampson MD Lymphocytes (Bld) [#/Vol] 1.40 10*3/uL Normal 1.10-3.70 [facility] Comment on above: Performed By: #### B PAULETTE, CDP #### [facility] [address] [place] [address] Bicycle Courier: Elizabeth Sampson MD Lymphocytes/100 WBC (Bld) 28 % Normal 24-43 [facility] Comment on above: Performed By: #### B MP, CDP #### [facility] [address] [place] [id number] Bicycle Courier: Elizabeth Sampson MD MCH (RBC) [Entitic mass] 28.0 pg Normal 25.2-33.5 [facility] Comment on above: Performed By: #### B MP, CDP #### [facility] [address] [place], [place] 479[address]83 Bicycle Courier: Elizabeth Sampson MD MCHC (RBC) [Mass/Vol] 31.8 g/dL Normal 28.4-34.8 [facility] Comment on above: Performed By: #### B MP, CDP #### [facility] [address] [place], [place] [id number] Bicycle Courier: Elizabeth Sampson MD MCV (RBC) [Entitic vol] 87.9 fL Normal 82.6-102.9 [facility] Comment on above: Performed By: #### B PAULETTE, CDP #### [facility] [address] [place] [address] [address] [place], [place] [id number] Bicycle Courier: Elizabeth Sampson MD Monocytes (Bld) [#/Vol] 0.43 10*3/uL Normal 0.10-1.20 [facility] Comment on above: Performed By: #### B MP, CDP #### [facility] [address] [place] [address] [address] [place], [place] 146[address]83 Bicycle Courier: Elizabeth Sampson MD Monocytes/100 WBC (Bld) 9 % Normal 3-12 [facility] Comment on above: Performed By: #### B MP, CDP #### [facility] [address] [place], [place] [address] Bicycle Courier: Elizabeth Sampson MD Neutrophil (Seg) 59 % Normal 36-65 [facility] Comment on above: Performed By: #### B MP, CDP #### [facility] [address] [place], [place] [phone] Bicycle Courier: Elizabeth Sampson MD NRBC Automated 0.0 per 100 WBC Normal 0.0 [facility] Comment on above: Performed By: #### B MP, CDP #### [address] [place], [place] [address]289[address] Bicycle Courier: Elizabeth Sampson MD Platelet mean volume (Bld) [Entitic vol] 10.2 fL Normal 8.1-13.5 [facility] Comment on above: Performed By: #### B MP, CDP #### [address] [place], [place] [phone] Bicycle Courier: Elizabeth Sampson MD Platelets (Bld) [#/Vol] 215 10*3/uL Normal 138-453 [facility] Comment on above: Performed By: #### B PAULETTE, CDP #### [address] [place], [place] [address]83 Bicycle Courier: Elizabeth Sampson MD RBC (Bld) [#/Vol] 4.54 10*6/uL Normal 4.21-5.77 [facility] Comment on above: Performed By: #### B PAULETTE, CDP #### [address] [place], [place] [address] Bicycle Courier: Elizabeth Sampson MD WBC (Bld) [#/Vol] 5.0 10*3/uL Normal 3.5-11.3 [facility] Comment on above: Performed By: #### B MP, CDP #### [address] [place], [place] [phone] Bicycle Courier: Elizabeth Sampson MD MRSA, DNA, Nasalon 3 Specimen Description .NASAL SWAB Normal [facility] Comment on above: Performed By: #### M RSANO #### [facility] [address] [place], [place] [address] Bicycle Courier: Phan Dos Santos MD [address] [place], [place] [address]83 Bicycle Courier: Elizabeth Sampson MD Type + Screenon 02-18-2023 Type + Screen Sample Expiration 03/19/2023,2359 Arm Band Number [id number] ABO/Rh(D) O POSITIVE Antibody Screen NEGATIVE Normal [facility] Comment on above: Performed By: #### T YS #### [facility] [address] [place] [address] [place] [address] Bicycle Courier: Elizabeth Sampson MD Hemoglobin and hematocrit, b loodon 06-13-2022 Hematocrit (Bld) [Volume fraction] 33.7 % Low 40.7 - 50.3 % [facility] Hemoglobin (Bld) [Mass/Vol] 11.0 g/dL Low 13.0 - 17.0 g/dL [facility] Interpretation and review of laboratory results Abnormal [facility] Hgb/Hcton 06-13-2022 Hematocrit (Bld) [Volume fraction] 33.7 % Low 40.7-50.3 [facility] Comment on above: Performed By: #### H H #### [address] [place] [address] Bicycle Courier: Elizabeth Sampson MD Hemoglobin (Bld) [Mass/Vol] 11.0 g/dL Low 13.0-17.0 [facility] Comment on above: Performed By: #### H H #### [address] [place] [place] [address] Bicycle Courier: Elizabeth Sampson MD OPERATIVE REPORTon 3 OPERATIVE REPORT [address] [address] OPERATIVE REPORT PATIENT NAME: JÚNIOR ROWLAND : 1960 MED REC NO: [id number] ROOM: [facility] ACCOUNT NO: [id number] ADMIT DATE: 06/12/2022 PROVIDER: Ajay Galvan DATE OF PROCEDURE: 06/13/2022 PREOPERATIVE DIAGNOSIS: Degenerative arthritis, left knee. POSTOPERATIVE DIAGNOSIS: Degenerative arthritis, left knee. PROCEDURE PERFORMED: Left total knee replacement using a Lori Persona knee, size 10 cemented femoral component, size F stemmed cemented tibial plateau with a 30-mm stem extension, a 12-mm MC poly, and a 35-mm patellar dome. SURGEON: Dr. Ajay Galvan. ANESTHESIA: General. DESCRIPTION OF PROCEDURE: The patient was brought into the operating room and placed in the supine position on the operating table. Spinal anesthetic was administered. The left lower extremity was prepped with ChloraPrep and draped in a sterile fashion. A skin incision was made and the anesthetic was not adequate and this was converted to a general anesthetic. The patient had received 3 gm of Ancef. A 12-cm midline medial parapatellar quad-sparing incision was made. This was taken down through the skin and subcutaneous tissue. Arthrotomy was made along the medial border of the patellar tendon through the medial retinaculum and medial quad snip was made at the superior pole of the patella. Marked degenerative changes were noted within the knee. Central drill was placed down the femoral canal and distal femoral cut was set at 5 degrees of valgus. Femoral tower marked for 3 degrees of external rotation. A size 10 four-in-one cutting block was then used. Surface of tibia was then osteotomized with the tibial jig. Remnants of menisci were removed. The posterior capsule was injected 20 mL of the total joint compound. Undersurface of tibial plateau was then osteotomized and the knee was cleansed with Simpulse with gentamicin in the irrigation solution. Trial reduction was then carried out. Knee was noted to be well balanced both in flexion and extension. Trial components were removed. The tourniquet was deflated to 350 mmHg. The tibia was prepared for a size F tibial plateau. Methyl methacrylate was prepared. The tibial component was then cemented into place. Second batch of cement was used to cement the femoral component into place and finally patellar dome was cemented into place. All excess cement was removed. A 12-mm MC poly was inserted. Knee was well balanced both in flexion and extension. The knee was then again cleansed with Simpulse. Deep fascial layers and skin margins were injected with remainder of the total joint compound. Vancomycin powder was sprinkled into the wound. The deep fascial layer was then closed with #1 Vicryl [id number] sutures over two Hemovac drains. Remainder of the gram of vancomycin was sprinkled in the subcutaneous layer. This was closed in layers with #1 Vicryl and 2-0 Vicryl followed by 3-0 Monocryl subcuticular stitch. Dressed with Steri-Strips, fluffs, ABD, Kerlix roll, and an EDNA wrap from toe to groin. Estimated blood loss 500 mL. General anesthetic was discontinued. The patient was transferred to Recovery in a stable condition. MODIFIER 22: The patient is morbidly obese. He has a BMI of 50. This required additional five minutes of preparation time, additional 45 minutes of surgical time, and an additional 10 minutes of layered closure time. AJAY ChamberlainMakenzie MALIKA [id number] Doc#: [id number] CC: [facility] EKG 12 LeadOrdered By: Niranjan Velez on 05-13-2022 Atrial Rate 70 BPM [employer] Phone: P [place] 8 degrees [employer] Phone: P-R Interval 218 ms [employer] Phone: Q-T Interval 394 ms [employer] Phone: QRS Duration 86 ms [employer] Phone: QTc Calculation (Bazett) 425 ms [employer] Phone: R [place] 6 degrees [employer] Phone: T [place] 36 degrees [employer] Phone: Ventricular Rate 70 BPM [employer] Phone: [employer] Phone: EKG 12 Leadon 05-13-2022 Sinus rhythm with 1s t degree A-V block Otherwise normal ECG No previous ECGs available Confirmed by ELDA VELEZ ([id number]) on 05/13/2022 12:38:30 AM [facility] RADI[facility] Elda Velez MD - 05/13/2022 Sinus rhythm with 1st degree A-V block Otherwise normal ECG No previous ECGs available Confirmed by ELDA VELEZ ([id number]) on 05/13/2022 12:38:30 AM [facility] Work Phone: MRSA DNA Probe, Nasalon 05-01 MRSA, DNA, Nasal Negative NEGATIVE [facility] Comment on above: NEGATIVE: MRSA DNA n ot detected by nucleic acid amplification. Results should be used as an adjunct to nosocomial control efforts to identify patients needing enhanced precautions. The test is not intended to identify patients with staphylococcal infections. Results should not be used to guide or monitor treatment for MRSA infections. Specimen Description .NASAL SWAB [facility] MRSA, DNA, Nasalon MRSA, DNA, Nasal Negative Normal [facility] Comment on above: Result Comment: [facility] MRSA DNA not detected by nucleic acid amplification. Results should be used as an adjunct to nosocomial control efforts to identify patients needing enhanced precautions. The test is not intended to identify patients with staphylococcal infections. Results should not be used to guide or monitor treatment for MRSA infections. Performed By: #### [facility] #### [facility] [address] [place] [address] Bicycle Courier: Phan Dos Santos MD [facility] [address] [place] [address] Bicycle Courier: Elizabeth Sampson MD Basic Metabolic Panelon 05-01 Anion gap [Moles/Vol] 9 mmol/L 9 - 17 mmol/L [facility] Calcium [Mass/Vol] 9.6 mg/dL 8.6 - 10. 4 mg/dL [facility] Chloride [Moles/Vol] 101 mmol/L 98 - 10 7 mmol/L [facility] CO2 [Moles/Vol] 26 mmol/L 20 - 31 mmol/L [facility] Creatinine [Mass/Vol] 0.86 mg/dL 0.70 - 1.20 mg/dL [facility] GFR/1.73 sq M.predicted MDRD (S/P/Bld) [Vol rate/Area] - PINF [facility] Comment on above: Effective Mar 03, 2022 These results are not intended for use in patients <18 years of age. eGFR results are calculated without a race factor using the 2020 CKD-EPI equation. Careful clinical correlation is recommended, particularly when comparing to results calculated using previous equations. The CKD-EPI equation is less accurate in patients with extremes of muscle mass, extra-renal metabolism of creatine, excessive creatine ingestion, or following therapy that affects renal tubular secretion. Glucose [Mass/Vol] 90 mg/dL 70 - 99 mg/dL [facility] Interpretation and review of laboratory results Abnormal [facility] Potassium [Moles/Vol] 3.9 mmol/L 3.7 - 5.3 mmol/L [facility] Sodium [Moles/Vol] 136 mmol/L 135 - 144 mmol/L [facility] Urea nitrogen (BldV) [Mass/Vol] 21 mg/dL 8 - 23 mg/dL [facility] Urea nitrogen/Creatinine (Bld) [Mass ratio] 24 High 9 - 20 [facility] Basic Metabolic Profon 05-12 Anion gap [Moles/Vol] 9 mmol/L Normal 9-17 [facility] Comment on above: Performed By: #### C DP, BMP #### [facility] [address] [place] [address] Bicycle Courier: Elizabeth Sampson MD BUN/CRE Ratio 24 High 9-20 [facility] Comment on above: Performed By: #### C DP, BMP #### [facility] [address] [place] [address] Bicycle Courier: Elizabeth Sampson MD Calcium [Mass/Vol] 9.6 mg/dL Normal 8.6-10.4 [facility] Comment on above: Performed By: #### C DP, BMP #### [facility] [address] [place] [address] Bicycle Courier: Elizabeth Sampson MD Chloride [Moles/Vol] 101 mmol/L Normal 98-107 [facility] Comment on above: Performed By: #### C DP, BMP #### [facility] [address] [place] [address] Bicycle Courier: Elizabeth Sampson MD CO2 [Moles/Vol] 26 mmol/L Normal 20-31 [facility] Comment on above: Performed By: #### C DP, BMP #### [facility] [address] [place] [address] Bicycle Courier: Elizabeth Sampson MD Creatinine [Mass/Vol] 0.86 mg/dL Normal 0.70-1.20 [facility] Comment on above: Performed By: #### C DP, BMP #### [facility] [address] [place] [address] Bicycle Courier: Elizabeth Sampson MD GFR/1.73 sq M.predicted among non-blacks MDRD (S/P/Bld) [Vol rate/Area] mL/min/{1.73_m2} Normal >60 [facility] Comment on above: Result Comment: Effective Mar 03, 2022 These results are not intended for use in patients <18 years of age. eGFR results are calculated without a race factor using the 2020 CKD-EPI equation. Careful clinical correlation is recommended, particularly when comparing to results calculated using previous equations. The CKD-EPI equation is less accurate in patients with extremes of muscle mass, extra-renal metabolism of creatine, excessive creatine ingestion, or following therapy that affects renal tubular secretion. Performed By: #### C DP, BMP #### [facility] [address] [place] [address] Bicycle Courier: Elizabeth Sampson MD Glucose [Mass/Vol] 90 mg/dL Normal 70-99 [facility] Comment on above: Performed By: #### C DP, BMP #### [facility] [address] [place] [address] Bicycle Courier: Elizabeth Sampson MD Potassium [Moles/Vol] 3.9 mmol/L Normal 3.7-5.3 [facility] Comment on above: Performed By: #### C DP, BMP #### [facility] [address] [place] [address] Bicycle Courier: Elizabeth Sampson MD Sodium [Moles/Vol] 136 mmol/L Normal 135-144 [facility] Comment on above: Performed By: #### C DP, BMP #### [facility] [address] [place], [place] [id number] Bicycle Courier: Elizabeth Sampson MD Urea nitrogen [Mass/Vol] 21 mg/dL Normal 8-23 [facility] Comment on above: Performed By: #### C DP, BMP #### [facility] [address] [place] [address] Bicycle Courier: Elizabeth Sampson MD CBC with Auto Differentialon 05-12-2022 Absolute Eos # 0.19 [place] [facility] Absolute Immature Granulocyte 0.05 [facility] Absolute Lymph # 1.73 [facility] Absolute Upson # 0.48 [facility] Basophils (Bld) [#/Vol] 0.04 10*3/uL [facility] Basophils/100 WBC (Bld) 0 % 0 - 2 % [facility] Eosinophils/100 WBC (Bld) 2 % 1 - 4 % [facility] Hematocrit (Bld) [Volume fraction] 42.5 % 40.7 - 50.3 % [facility] Hemoglobin (Bld) [Mass/Vol] 13.4 g/dL 13.0 - 17.0 g/dL [facility] Immature granulocytes/100 WBC (Bld) 1 % High 0 [facility] Interpretation and review of laboratory results Abnormal [facility] Lymphocytes/100 WBC (Bld) 18 % Low 24 - 43 % [facility] MCH (RBC) [Entitic mass] 28.6 pg 25.2 - 33.5 pg [facility] MCHC (RBC) [Mass/Vol] 31.5 g/dL 28.4 - 34.8 g/dL [facility] MCV (RBC) [Entitic vol] 90.8 fL 82.6 - 102.9 fL [facility] Monocytes/100 WBC (Bld) 5 % 3 - 12 % [facility] NRBC Automated 0.0 0.0 per 100 WBC [facility] Platelet distribution width (Bld) [Ratio] 13.4 % 11.8 - 14.4 % [facility] Platelet mean volume (Bld) [Entitic vol] 9.7 fL 8.1 - 13.5 fL [facility] Platelets (Bld) [#/Vol] 240 10*3/uL [facility] RBC (Bld) [#/Vol] 4.68 10*6/uL 4.21 - 5.7 7 m/uL [facility] Segmented neutrophils/100 WBC (Bld) 74 % High 36 - 65 % [facility] Segs Absolute 6.94 [facility] WBC (Bld) [#/Vol] 9.4 10*3/uL [facility] CBC with Diffon 05-12-2022 Abs. Basophil 0.04 k/uL Normal 0.00-0.20 [facility] Comment on above: Performed By: #### C DP, BMP #### [facility] [address] [place], [place] [phone] Bicycle Courier: Elizabeth Sampson MD Abs.Imm.Granulocyte 0.05 k/uL Normal 0.00-0.30 [facility] Comment on above: Performed By: #### C DP, BMP #### [facility] [address] [place], [place] [id number] Bicycle Courier: Elizabeth Sampson MD Abs.Neutrophil (Seg) 6.94 k/uL Normal 1.50-8.10 [facility] Comment on above: Performed By: #### C DP, BMP #### [facility] [address] [place] [address] Bicycle Courier: Elizabeth Sampson MD Basophils/100 WBC (Bld) 0 % Normal 0-2 [facility] Comment on above: Performed By: #### C DP, BMP #### [address] [place], [place] [id number] Bicycle Courier: Elizabeth Sampson MD Eosinophils (Bld) [#/Vol] 0.19 10*3/uL Normal 0.00-0.44 [facility] Comment on above: Performed By: #### C DP, BMP #### [address] [place], [place] [id number] Bicycle Courier: Elizabeth Sampson MD Eosinophils/100 WBC (Bld) 2 % Normal 1-4 [facility] Comment on above: Performed By: #### C DP, BMP #### [address] [place], [place] [id number] Bicycle Courier: Elizabeth Sampson MD Erythrocyte distribution width (RBC) [Ratio] 13.4 % Normal 11.8-14.4 [facility] Comment on above: Performed By: #### C DP, BMP #### [address] [place], [place] [id number] Bicycle Courier: Elizabeth Sampson MD Hematocrit (Bld) [Volume fraction] 42.5 % Normal 40.7-50.3 [facility] Comment on above: Performed By: #### C DP, BMP #### [address] [place], [place] [id number] Bicycle Courier: Elizabeth Sampson MD Hemoglobin (Bld) [Mass/Vol] 13.4 g/dL Normal 13.0-17.0 [facility] Comment on above: Performed By: #### C DP, BMP #### [address] [place] [address] Bicycle Courier: Elizabeth Sampson MD Immature granulocytes/100 WBC (Bld) 1 % High 0 [facility] Comment on above: Performed By: #### C DP, BMP #### [facility] [address] [place], [place] [id number] Bicycle Courier: Elizabeth Sampson MD Lymphocytes (Bld) [#/Vol] 1.73 10*3/uL Normal 1.10-3.70 [facility] Comment on above: Performed By: #### C DP, BMP #### [facility] [address] [place], [facility]83 Bicycle Courier: Elizabeth Sampson MD Lymphocytes/100 WBC (Bld) 18 % Low 24-43 [facility] Comment on above: Performed By: #### C DP, BMP #### [facility] [address] [place], [facility]83 Bicycle Courier: Elizabeth Sampson MD MCH (RBC) [Entitic mass] 28.6 pg Normal 25.2-33.5 [facility] Comment on above: Performed By: #### C DP, BMP #### [address] [place], [facility]83 Bicycle Courier: Elizabeth Sampson MD MCHC (RBC) [Mass/Vol] 31.5 g/dL Normal 28.4-34.8 [facility] Comment on above: Performed By: #### C DP, BMP #### [address] [place], [place] [address] Bicycle Courier: Elizabeth Sampson MD MCV (RBC) [Entitic vol] 90.8 fL Normal 82.6-102.9 [facility] Comment on above: Performed By: #### C DP, BMP #### [address] [place] [place] [address] Bicycle Courier: Elizabeth Sampson MD Monocytes (Bld) [#/Vol] 0.48 10*3/uL Normal 0.10-1.20 [facility] Comment on above: Performed By: #### C DP, BMP #### [facility] [address] [place], [place] [id number] Bicycle Courier: Elizabeth Sampson MD Monocytes/100 WBC (Bld) 5 % Normal 3-12 [facility] Comment on above: Performed By: #### C DP, BMP #### [facility] [address] [place], [place] [id number] Bicycle Courier: Elizabeth Sampson MD Neutrophil (Seg) 74 % High 36-65 [facility] Comment on above: Performed By: #### C DP, BMP #### [facility] [address] [place], [place] [phone] Bicycle Courier: Elizabeth Sampson MD NRBC Automated 0.0 per 100 WBC Normal 0.0 [facility] Comment on above: Performed By: #### C DP, BMP #### [address] [place], [place] [address] Bicycle Courier: Elizabeth Sampson MD Platelet mean volume (Bld) [Entitic vol] 9.7 fL Normal 8.1-13.5 [facility] Comment on above: Performed By: #### C DP, BMP #### [address] [place], [place] [phone] Bicycle Courier: Elizabeth Sampson MD Platelets (Bld) [#/Vol] 240 10*3/uL Normal 138-453 [facility] Comment on above: Performed By: #### C DP, BMP #### [facility] [address] [place] [address] [address] [place], [place] [address] Bicycle Courier: Elizabeth Sampson MD RBC (Bld) [#/Vol] 4.68 10*6/uL Normal 4.21-5.77 [facility] Comment on above: Performed By: #### C DP, BMP #### [facility] [address] [place] [address] Bicycle Courier: Elizabeth Sampson MD WBC (Bld) [#/Vol] 9.4 10*3/uL Normal 3.5-11.3 [facility] Comment on above: Performed By: #### C DP, BMP #### [facility] [address] [place] [address] Bicycle Courier: Elizabeth Sampson MD MRSA, DNA, Nasalon Specimen Description .NASAL SWAB Normal [facility] Comment on above: Performed By: #### M RSANO #### [facility] [address] [place], [place] [id number] Bicycle Courier: Phan Dos Santos MD [facility] [address] [place] [address] Bicycle Courier: Elizabeth Sampson MD TYPE AND SCREENon 05-12-2022 ABO/Rh Positive [facility] Arm Band Number [id number] [facility] Expiration Date 06/12/2022,2359 [facility] Type + Screenon 05-12-2022 Type + Screen Sample Expiration 06/12/2022,2359 Arm Band Number [id number] ABO/Rh(D) O POSITIVE Antibody Screen NEGATIVE Normal [facility] Comment on above: Performed By: #### T YS #### [facility] [address] [place] [address] Bicycle Courier: Elizabeth Sampson MD Albumin [Mass/volume] in Ser um or PlasmaOrdered By: Fred Diehl on 01-29-2022 Albumin [Mass/Vol] 4.1 g/dL 3.2-5.5 [facility] Basophils Auto (Bld) [#/Vol] Ordered By: PROVIDER TEMP on 01-29-2022 Basophils (Bld) [#/Vol] 0.1 10*3/uL 0.0-0.2 [facility] Basophils/100 WBC Auto (Bld) Ordered By: PROVIDER TEMP on 01-29-2022 Basophils/100 WBC (Bld) 1.0 % . [facility] Bilirubin Test strip Ql (U)O rdered By: PROVIDER TEMP on 01-29-2022 Bilirubin Ql (U) Negative Negative [facility] Blood hemoglobin measurement (mass/volume)Ordered By: PROVIDER TEMP on 01-29-2022 Hemoglobin (Bld) [Mass/Vol] 13.3 g/dL 13.0-17.0 [facility] Blood leukocytes automated c ount (number/volume)Ordered By: PROVIDER TEMP on 01-29-2022 WBC (Bld) [#/Vol] 5.2 10*3/uL 4.5-11.0 [facility] Color Auto (U)Ordered By: KS JACINTAER TEMP on 01-29-2022 Color (U) Yellow Yellow [facility] Creatinine and Glomerular fi ltration rate.predicted panel (S/P/Bld)Ordered By: Fred Diehl on 01-29-2022 Creatinine [Mass/Vol] 0.90 mg/dL 0.64-1.27 [facility] Direct bilirubin measurement Ordered By: Fred Diehl on 01-29-2022 Bilirubin.direct [Mass/Vol] 0.1 mg/dL 0.0-0.4 [facility] Eosinophils Auto (Bld) [#/Vo l]Ordered By: PROVIDER TEMP on 01-29-2022 Eosinophils (Bld) [#/Vol] 0.2 10*3/uL 0.0-0.45 [facility] Eosinophils/100 WBC Auto (Bl d)Ordered By: PROVIDER TEMP on 01-29-2022 Eosinophils/100 WBC (Bld) 3.4 % . [facility] Erythrocyte distribution wid th Auto (RBC) [Ratio]Ordered By: PROVIDER TEMP on 01-29-2022 Erythrocyte distribution width (RBC) [Ratio] 14.1 % 12.0-14.8 [facility] Estimated glomerular filtrat ion rate (GFR) non- AmericanOrdered By: Fred Diehl on 01-29-2022 GFR/1.73 sq M.predicted among non-blacks MDRD (S/P/Bld) [Vol rate/Area] > 60 mL/Min [facility] Globulin Calc (S) [Mass/Vol] Ordered By: Fred Diehl on 01-29-2022 Globulin (S) [Mass/Vol] 3.9 g/dL [facility] Hematocrit Auto (Bld) [Volum e fraction]Ordered By: PROVIDER TEMP on 01-29-2022 Hematocrit (Bld) [Volume fraction] 40.7 % 38.8-50.0 [facility] Ketones Auto test strip (U) [Mass/Vol]Ordered By: PROVIDER TEMP on 01-29-2022 Ketones (U) [Mass/Vol] Negative Negative [facility] - Chemistry and C hemistry - challengeOrdered By: Fred Diehl on 01-29-2022 Lipase [Catalytic activity/Vol] 34.0 U/L 22-51 [facility] - Hematology and Cell countsOrdered By: PROVIDER TEMP on 01-29-2022 Nucleated RBC/100 WBC (Bld) [Ratio] 0.2 % 0-0.5 [facility] Lymphocytes Auto (Bld) [#/Vo l]Ordered By: PROVIDER TEMP on 01-29-2022 Lymphocytes (Bld) [#/Vol] 1.2 10*3/uL 1.00-4.8 [facility] Lymphocytes/100 WBC Auto (Bl d)Ordered By: PROVIDER TEMP on 01-29-2022 Lymphocytes/100 WBC (Bld) 23.8 % . [facility] MCH Auto (RBC) [Entitic mass ]Ordered By: PROVIDER TEMP on 01-29-2022 MCH (RBC) [Entitic mass] 27.9 pg 27.5-35.2 [facility] MCHC Auto (RBC) [Mass/Vol]Or dered By: PROVIDER TEMP on 01-29-2022 MCHC (RBC) [Mass/Vol] 32.7 g/dL 32.5-35.6 [facility] MCV Auto (RBC) [Entitic vol] Ordered By: PROVIDER TEMP on 01-29-2022 MCV (RBC) [Entitic vol] 85.3 fL 83.5-101 [facility] Monocytes Auto (Bld) [#/Vol] Ordered By: PROVIDER TEMP on 01-29-2022 Monocytes (Bld) [#/Vol] 0.4 10*3/uL 0.0-0.8 [facility] Monocytes/100 WBC Auto (Bld) Ordered By: PROVIDER TEMP on 01-29-2022 Monocytes/100 WBC (Bld) 7.0 % . [facility] Neutrophils Auto (Bld) [#/Vo l]Ordered By: PROVIDER TEMP on 01-29-2022 Neutrophils (Bld) [#/Vol] 3.4 10*3/uL 1.8-7.7 [facility] Neutrophils/100 WBC Auto (Bl d)Ordered By: PROVIDER TEMP on 01-29-2022 Neutrophils/100 WBC (Bld) 64.8 % . [facility] Nitrite Test strip Ql (U)Ord ered By: PROVIDER TEMP on 01-29-2022 Nitrite Ql (U) Negative Negative [facility] No Panel InformationOrdered By: Fred Diehl on 01-29-2022 Estimated GFR () > 60 mL/Min [facility] Comment on above: GFR estimated refere nce range: According to KDOQI guidelines, <60 ml/min/1.73m2 is sufficient to diagnose a patient with chronic kidney disease. Pharmacy Creatinine Clearance (Chem 139.66 [facility] Platelet mean volume Auto (B ld) [Entitic vol]Ordered By: PROVIDER TEMP on 01-29-2022 Platelet mean volume (Bld) [Entitic vol] 8.2 fL 6.6-10.1 [facility] Platelets Auto (Bld) [#/Vol] Ordered By: PROVIDER TEMP on 01-29-2022 Platelets (Bld) [#/Vol] 239 10*3/uL 150-450 [facility] Protein Auto test strip (U) [Mass/Vol]Ordered By: PROVIDER TEMP on 01-29-2022 Protein (U) [Mass/Vol] Negative Negative [facility] Protein [Mass/volume] in Ser um or PlasmaOrdered By: Fred Diehl on 01-29-2022 Protein [Mass/Vol] 8.0 g/dL 6.1-7.9 [facility] RBC Auto (Bld) [#/Vol]Ordere d By: PROVIDER TEMP on 01-29-2022 RBC (Bld) [#/Vol] 4.77 10*6/uL 3.90-5.60 [facility] Serum or plasma alanine ramesh otransferase measurement without P-5'-P (enzymatic activiOrdered By: Fred Diehl on 01-29-2022 ALT No additional P-5'-P [Catalytic activity/Vol] 25 U/L 1060 [facility] Serum or plasma albumin/glob ulin mass ratioOrdered By: Fred Diehl on 01-29-2022 Albumin/Globulin [Mass ratio] 1.1 {ratio} [facility] Serum or plasma alkaline corrie sphatase measurement (enzymatic activity/volume)Ordered By: Fred Diehl on 01-29-2022 ALP [Catalytic activity/Vol] 53 U/L 32 [facility] Serum or plasma anion gap de terminationOrdered By: Fred Diehl on 01-29-2022 Anion gap [Moles/Vol] 12.0 mmol/L 6.0-15.0 [facility] Serum or plasma aspartate am inotransferase measurement (enzymatic activity/volume)Ordered By: Fred Diehl on 01-29-2022 AST [Catalytic activity/Vol] 25 U/L 10 [facility] Serum or plasma calcium martha urement (mass/volume)Ordered By: Fred Diehl on 01-29-2022 Calcium [Mass/Vol] 9.4 mg/dL 8.2-10.2 [facility] Serum or plasma chloride rodrick surement (moles/volume)Ordered By: Fred Diehl on 01-29-2022 Chloride [Moles/Vol] 101 mmol/L 95-114 [facility] Serum or plasma glucose martha urement (mass/volume)Ordered By: Fred Diehl on 01-29-2022 Glucose [Mass/Vol] 92 mg/dL 70-100 [facility] Comment on above: ADA recommended refe rence range Random Glucose Reference Range is dependent on time and content of last meal. Glucose of more than 200 mg/dL in a nonstressed, ambulatory subject supports the diagnosis of Diabetes Mellitus. Serum or plasma non-glucuron idated bilirubin measurement (mass/volume)Ordered By: Fred Diehl on 01-29-2022 Bilirubin.indirect [Mass/Vol] 0.7 mg/dL [facility] Serum or plasma potassium me asurement (moles/volume)Ordered By: Fred Diehl on 01-29-2022 Potassium [Moles/Vol] 3.8 mmol/L 3.5-5.1 [facility] Serum or plasma sodium measu rement (moles/volume)Ordered By: Fred Diehl on 01-29-2022 Sodium [Moles/Vol] 137 mmol/L 136-146 [facility] Serum or plasma total biliru bin measurement (mass/volume)Ordered By: Fred Diehl on 01-29-2022 Bilirubin [Mass/Vol] 0.8 mg/dL 0.3-1.2 [facility] Serum or plasma total carbon dioxide measurement (moles/volume)Ordered By: Fred Diehl on 01-29-2022 CO2 [Moles/Vol] 27.8 mmol/L 22.0-30.0 [facility] Serum or plasma urea nitroge n measurement (mass/volume)Ordered By: Fred Diehl on 01-29-2022 Urea nitrogen [Mass/Vol] 9 mg/dL 9-23 [facility] Specific gravity Auto test s trip (U) [Rel density]Ordered By: PROVIDER MELISSA on 01-29-2022 Specific gravity (U) [Rel density] 1.013 1.001-1.030 [facility] Urine clarity by refractomet ry automatedOrdered By: PROVIDER [facility] CENT[facility] on 01-29-2022 Clarity Refractometry automated (U) Clear Clear [facility] Urine glucose measurement by automated test strip (mass/volume)Ordered By: PROVIDER MELISSA on 01-29-2022 Glucose Auto test strip (U) [Mass/Vol] Normal mg/dL Normal [facility] Urine hemoglobin detection b y automated test stripOrdered By: PROVIDER TEMP on 01-29-2022 Hemoglobin Auto test strip Ql (U) Negative Negative [facility] Urine leukocyte esterase det ection by automated test stripOrdered By: PROVIDER TEMP on 01-29-2022 Leukocyte esterase Auto test strip Ql (U) Negative Negative [facility] Urobilinogen Auto test strip (U) [Mass/Vol]Ordered By: PROVIDER TEMP on 01-29-2022 Urobilinogen (U) [Mass/Vol] Normal mg/dL Normal [facility] pH Auto test strip (U)Ordere d By: PROVIDER TEMP on 01-29-2022 pH (U) 5.5 [pH] 5.0-9.0 [facility] MRI C-SPINE WO/W CONon 03-12 MRI C-SPINE WO/W CON [address] [place] [address] Patient: JÚNIOR ROWLAND Exam Date: 03/12/2018DOB: 1960 Gender:M : BAKARI WHITE Admission #: [id number] : Order #: [id number] HERE TO VIEW EXAM RADIOLOGY REPORT PROCEDURE: MRI C-SPINE WITH AND WITHOUT CONTRAST COMPARISON: MRI C-SPINE WO/W CON, 12/20/2012. MRI C-SPINE WO/W CON, 09/26/2013. INDICATIONS: follow-up from spinal meningioma removal TECHNIQUE: A variety of imaging planes and parameters were utilized for visualization of suspected pathology prior to and after 20 ml intravenous Omniscan gadolinium injection. FINDINGS: Significant motion artifact limits the exam CRANIOCERVICAL AREA: Normal foramen magnum with no Chiari malformation. PARASPINAL AREA: Normal with no visible mass. BONES: 1.8 cm signal abnormality T3 vertebral body, a hemangioma is favoredCORD: Normal caliber, contour, and signal intensity. CERVICAL DISC LEVELS:C2-C3: No significant disc/facet abnormality, spinal stenosis, or foraminal stenosis. C3-C4: No significant disc/facet abnormality, spinal stenosis, or foraminal stenosis. 4.6 mm area of hypo intense signal left paracentral area best seen on axial image number 23, susceptibility artifact from a metal clip is suspected.C4-C5: No significant disc/facet abnormality, spinal stenosis, or foraminal stenosis. C5-C6: No significant disc/facet abnormality, spinal stenosis, or foraminal stenosis. C6-C7: No significant disc/facet abnormality, spinal stenosis, or foraminal stenosis. C7-T1 No significant disc/facet abnormality, spinal stenosis, or foraminal stenosis. CONCLUSION: 1. No new enhancing mass to suggest recurrent meningioma Dictated by: Elizabeth Rico M.D. on 03/12/2018 at 14:37 Approved by: Elizabeth Rico M.D. on 03/12/2018 at 14:46 Normal [facility] *ANAEROBIC CULTUREon 018 *ANAEROBIC CULTURE Clinical Report: (D) Specimen: SWAB Collected: 02/17/2018 15:32 Status: Final Last Updated: 02/22/2018 09:55 ISO (Final) No Anaerobes Isolated Day 5 Normal [facility] Comment on above: Performed By: #### [id number] ####[facility] *BODY FLUID CULTUREon 2017 *BODY FLUID CULTURE Clinical Report: (D) Specimen: FLUID Collected: 02/17/2018 15:32 Status: Final Last Updated: 02/20/2018 08:37 GRAM (Final) No Polys Seen Moderate Gram Positive Cocci In Pairs And Chains ISO (Final) Staphylococcus aureus Light Growth Results called. Read back by ADRIANNE Casarez on 02/19/18 at 1355 ISOLATE: Staphylococcus aureus GREG (mcg/ml) CLINDAMYCIN (CC) <=0.5 Susceptible DAPTOMYCIN (DAP) <=1 Susceptible ERYTHROMYCIN (E) >4 Resistant OXACILLIN (OX) <=0.25 Susceptible PENICILLIN (P) 0.25 Resistant TETRACYCLINE (TE) <=0.5 Susceptible TRIMETH/SULFA (SXT) <=0.5/9.5 Susceptible VANCOMYCIN (VA) 1 Susceptible Normal [facility] Comment on above: Performed By: #### [id number] ####[facility] Operative Reporton 8 Operative Report MR#: [id number] [facility] Pt. Name: [facility] Room #: 0C Discharge Date: Birthdate: 1960 OPERATIVE REPORTDATE OF SURGERY: 11/20/2017SURGEON: Alek Mittal M.D.GRASSLAND CONSERVATIONIST: Dr. [place].PREOPERATIVE DIAGNOSIS: Right knee septic bursitis with right knee woundmeasuring 9 x 3 cm.POSTOPERATIVE DIAGNOSIS: Right knee septic bursitis with right knee woundmeasuring 9 x 3 cm.PROCEDURE PERFORMED:1. Removal of soft tissue pathology transcriptionist to right lower extremity.2. Irrigation and debridement of right knee wound measuring 9 x 3 cm down to the level of muscle.3. Secondary closure of right knee wound measuring 2 x 3 cm.IMPLANTS REMOVED: DermaClose soft tissue pathology transcriptionist.ANESTHESIA: General.COMPLICATIONS: None.CLINICAL SUMMARY: The patient is a 57-year-old male who had right septicprepatellar bursitis. This has been washed out multiple times now and thewound has been clean and dry. He has been on antibiotics per theInfectious Disease service and at his last trip to the operating room, thesoft tissue was not amenable to closure, so the DermaClose device was usedand has now allowed for soft tissue closure. He was brought back to theoperating room for that purpose.DESCRIPTION OF PROCEDURE: The patient was seen in preop holding area.Informed consent was confirmed. The operative site was marked. He wastaken back to the operating room, placed supine on the operating table.General anesthesia was smoothly induced. The right lower extremity wasthen prepped and draped in standard sterile fashion. We began theprocedure with a surgical time-out indicating correct procedure, site,administration of antibiotics. We then began by removing the DermaClosedevice. This came out without incident. We inspected the wound andmeasured 9 x 3 cm down to the level of muscle. There was no evidence ofany residual infection. There was healthy granulation tissue present deep.The wound was thoroughly irrigated with 3 L of sterile saline and Betadineand debrided with curettes and Villalba. We then began our closure. We used a2-0 PDS for the dermal layer, followed by 2-0 nylon sutures in horizontalmattress fashion for the skin, which came together nicely. A sterile drydressing was then applied. The patient was awoken smoothly fromanesthesia. A knee immobilizer was applied. He was taken to the PACU ingood condition.Dr. Mittal was present throughout the entire procedure.Electronically Signed by:Alek Mittal M.D. 11/21/2017 02:08 P Alek Mittal M.D. I was present for the entire procedure. Date Dict: 11/20/2017/02:34 P/Mt Bowen M.D.Date Trans: 11/20/2017 10:12 P/mmoDN_JN:[id number] 6cc: Fatou Ridley M.D. [facility] [place] [address] Normal [facility] POC GLUCOSE LABon 11-20-2017 Glucose mass conc 95 mg/dL Normal 70-100 [facility] Comment on above: Performed By: #### 8 [id number] ####[facility] [facility] [place] [address], [facility] APTTon 11-19-2017 aPTT Coag time (Bld) 31.4 s Normal 25.0-35.0 [facility] Comment on above: Result Comment: ALL RESULTS MUST BE INTERPRETED WITH RESPECT TO BLOOD DRAWING ARTIFACTOR DILUTION ERROR OF ANTICOAGULANT AT THE TIME OF SAMPLING.THE APTT SHOULD NOT BE USED TO MONITOR UNFRACTIONATED HEPARIN THERAPY, THIS LABORATORY NO LONGER HAS AN ESTABLISHED THERAPEUTIC RANGE BASEDON THE APTT. IT IS RECOMMENDED THAT THE UFH - HEPARIN ASSAY (ANTI-XAACTIVITY) BE USED FOR THIS PURPOSE. Performed By: #### 5 6101 ####[facility] [place] [address], [facility] BASIC METABOLIC PANELon 10-31 Calcium mass conc 9.8 mg/dL Normal 8.6-10.3 [facility] Comment on above: Performed By: #### 5 6101 ####[facility] [place] [address], [facility] Chloride molar conc 100 mmol/L Normal 98-107 [facility] Comment on above: Performed By: #### 5 6101 ####[facility] [place] [address], [facility] CO2 molar conc 29 mmol/L Normal 21-31 [facility] Comment on above: Performed By: #### 5 6101 ####[facility] [place] [address], [facility] Creatinine mass conc 0.99 mg/dL Normal 0.70-1.30 [facility] Comment on above: Performed By: #### 5 6101 ####[facility] [place] [address], [place] GFR/1.73 sq M predicted among blacks MDRD vol rate/area (S/P/Bld) mL/min/{1.73_m2} Normal >60 [facility] Comment on above: Performed By: #### 5 6101 ####[facility] [place] [address], [facility] GFR/1.73 sq M predicted among non-blacks MDRD vol rate/area (S/P/Bld) mL/min/{1.73_m2} Normal >60 [facility] Comment on above: Performed By: #### 5 6101 ####[facility] [place] [address], [facility] Glucose mass conc 92 mg/dL Normal 70-100 [facility] Comment on above: Performed By: #### 5 6101 ####[facility] [place] [address], [place] Potassium molar conc 4.4 mmol/L Normal 3.5-5.1 [facility] Comment on above: Performed By: #### 5 6101 ####[facility] [place] [address], [place] Sodium molar conc 136 mmol/L Normal 136-145 [facility] Comment on above: Performed By: #### 5 6101 ####[facility] [place] [address], [place] Urea nitrogen mass conc 16 mg/dL Normal 7-25 [facility] Comment on above: Performed By: #### 5 6101 ####[facility] CBC W/DIFFon 11-19-2017 ABS BASOPHILS 0.1 10*3/uL Normal 0.0-0.2 [facility] Comment on above: Performed By: #### 5 6101 ####[address] ABS IMM GRANS 0.1 10*3/uL Normal 0.0-0.2 [facility] Comment on above: Performed By: #### 5 6101 ####[address] ABS NEUTROPHILS 3.3 10*3/uL Normal 1.6-7.6 [facility] Comment on above: Performed By: #### 5 6101 ####[address] Basophils Auto #/vol (Bld) 0.9 % Normal 0.0-1.0 [facility] Comment on above: Performed By: #### 5 6101 ####[address] Eosinophils Auto #/vol (Bld) 0.1 10*3/uL Normal 0.0-0.5 [facility] Comment on above: Performed By: #### 5 6101 ####[address] Eosinophils/100 WBC Auto (Bld) 2.5 % Normal 0.0-6.0 [facility] Comment on above: Performed By: #### 5 6101 ####[address] Erythrocyte distribution width Auto Ratio (RBC) 14.1 % Normal 11.5-15.0 [facility] Comment on above: Performed By: #### 5 6101 ####[address] [place] [address], [place] Hematocrit Auto Volume Fraction (Bld) 33.5 % Low 39.0-50.0 [facility] Comment on above: Performed By: #### 5 6101 ####[address] Hemoglobin mass conc (Bld) 10.4 g/dL Low 13.0-17.0 [facility] Comment on above: Performed By: #### 5 6101 ####[address] IMMATURE GRANS 1.6 % High 0.0-1.0 [facility] Comment on above: Performed By: #### 5 610 ####[address] Lymphocytes Auto #/vol (Bld) 1.6 10*3/uL Normal 1.2-4.0 [facility] Comment on above: Performed By: #### 5 6101 ####[address] Lymphocytes/100 WBC Auto (Bld) 28.7 % Normal 20.0-45.0 [facility] Comment on above: Performed By: #### 5 6101 ####[address] MCH Auto Entitic mass (RBC) 27.4 pg Normal 27.0-33.0 [facility] Comment on above: Performed By: #### 5 6101 ####[address] MCHC Auto mass conc (RBC) 31.0 g/dL Low 32.0-35.0 [facility] Comment on above: Performed By: #### 5 6101 ####[address] [place] [address], [place] MCV Auto Entitic volume (RBC) 88.2 fL Normal 82.0-98.0 [facility] Comment on above: Performed By: #### 5 6101 ####[facility] [facility].[address] Monocytes Auto #/vol (Bld) 0.4 10*3/uL Normal 0.1-1.0 [facility] Comment on above: Performed By: #### 5 6101 ####[facility] [facility].[address] MONOS 7.7 % Normal 5.0-12.0 [facility] Comment on above: Performed By: #### 5 610 ####[place] [address] [facility].[address] Neutrophils/100 WBC Auto (Bld) 58.6 % Normal 40.0-72.0 [facility] Comment on above: Performed By: #### 5 610 ####[place] [address] [facility].[address] Nucleated RBC/100 WBC Ratio (Bld) 0 % Normal 0-0 [facility] Comment on above: Performed By: #### 5 610 ####[facility] [facility].[address] PLAT CNT 455 10*3/uL High 150-400 [facility] Comment on above: Performed By: #### 5 6101 ####[facility] [facility].[address] RBC Auto #/vol (Bld) 3.80 10*6/uL Low 4.20-5.70 [facility] Comment on above: Performed By: #### 5 610 ####[facility] [facility].[address] WBC Auto #/vol (Bld) 5.68 10*3/uL Normal 4.00-10.60 [facility] Comment on above: Performed By: #### 5 6101 ####[facility] [facility].[address] PROTHROMBIN TIMEon INR Coag RelTime (PPP) 1.09 {INR} Normal 0.91-1.16 [facility] Comment on above: Result Comment: ACCC P RECOMMENDED INR FOR WARFARIN THERAPY CONDITION INRPROPHYLAXIS OF VENOUS THROMBOSIS 2-3(HIGH-RISK SURGERY)TREATMENT OF VENOUS THROMBOSIS 2-3TREATMENT OF PULMONARY EMBOLISM 2-3PREVENTION OF SYSTEMIC EMBOLISM: 2-3 ACUTE MYOCARDIAL INFARCTION TISSUE HEART VALVES VALVULAR HEART DISEASE ATRIAL FIBRILLATION RECURRENT SYSTEMIC EMBOLISMMECHANICAL HEART VALVE 2.5-3.5 FROM: ORAL ANTICOAGULANTS. MECHANISM OF ACTION, CLINICALEFFECTIVENESS, AND OPTIMAL THERAPEUTIC RANGE. [id number]. Performed By: #### 5 6101 ####[facility] [facility].[address] Prothrombin time (PT) Coag time (PPP) 14.1 s Normal 12.3-14.8 [facility] Comment on above: Result Comment: ALL RESULTS MUST BE INTERPRETED WITH RESPECT TO BLOOD DRAWING ARTIFACTOR DILUTION ERROR OF ANTICOAGULANT AT THE TIME OF SAMPLING. Performed By: #### 5 6101 ####[facility] [facility].[address] Discharge Summaryon 11-19-19 Discharge Summary MR#: [id number] [facility] Admitted: 11/02/2017 Discharged: 11/12/2017 Date of : 1960 Physician: Alek Mittal M.D. DISCHARGE SUMMARYPRINCIPAL DIAGNOSES:1. Right knee septic bursitis.2. Morbid obesity.CONSULTS:1. Pain management.2. Infectious Disease.HOSPITAL COURSE: This is a 57-year-old male who presented to [facility] as atransfer from [facility] with complaint of right knee septicbursitis. At [place], he underwent irrigation and debridement. Culturesobtained at that time were positive for MRSA. The patient was started onIV vancomycin during his hospital stay. His symptoms continued to persist,so he was transferred to [facility] for further management. He underwent rightknee irrigation and debridement with placement of a wet-to-dry dressing.On 11/03/2017, Pain Management was consulted for postoperative pain controland Infectious Disease was consulted for antibiotic management. Thepatient was taken back to the operating room on 11/05/2017 for repeatirrigation and debridement, and placement of a wound VAC. Intraoperativecultures grew MRSA as they did at the outside hospital. During thepatient's hospital course, he began to spike fevers up to 101.4. Bloodcultures and urinalysis were obtained, which were negative. The patientreported no pain from the right knee or pain with knee range of motion.The fevers were therefore determined to be medication related. Thepatient's vancomycin was discontinued and he was initiated on Bactrim. Thepatient remained afebrile for the remainder of his hospital stay. Thepatient was taken back once more on 11/11/2017 for final irrigation,debridement, and placement of a DermaClose device. The patient wasdischarged to rehab in stable condition on 11/12/2017 after being clearedby Physical and Occupational therapy.DISCHARGE INSTRUCTIONS: The patient will be weightbearing as tolerated tothe right lower extremity. He will work with Physical and Occupationaltherapy. He will maintain his surgical dressing until follow up. He willcontinue antibiotics in the form of Bactrim and DVT prophylaxis in the formof Lovenox. We will plan on seeing the patient back in 1 week forevaluation of his wound or sooner as needed.Electronically Signed by:Alek Mittal M.D. 11/21/2017 02:08 P Alek Mittal M.D. I personally saw this patient on the day of the encounter, performed thekey portion(s) of the service and participated in the management andconfirm the resident's documentation. Please note there may be anadditional personal documentation from me. Date Dict: 11/17/2017/02:30 P/Maude Espinal, MDDate Trans: 11/17/2017 11:45 P/mmoDN_JN:[id number] 0cc: Fatou Ridley M.D. [facility] [address] Kristie Tamayo, DO [address] [facility] [address] [place] [address] Normal [facility] Operative Reporton 8 Operative Report MR#: [id number] [facility] Name[facility] J[facility]ior Rowland Room #: [id number] Discharge Date: Birthdate: 1960 OPERATIVE REPORTDATE OF SURGERY: 11/11/2017SURGEON: Alek Mittal M.D.PREOPERATIVE DIAGNOSIS: Right knee septic bursitis status post irrigationand debridement and application of wound VAC.POSTOPERATIVE DIAGNOSIS: Right knee septic bursitis status post irrigationand debridement and application of wound VAC.PROCEDURE PERFORMED:1. Right knee irrigation and excisional debridement down to including muscle, wound size measuring 11 x 4 cm.2. Delayed wound closure using DermaClose wound closure device.3. Right knee aspiration.ASSISTANTS:1. Dr. Maude Espinal.2. Dr. Rio Taylor.3. Dr. Mt Bowen.ANESTHESIA: General endotracheal.IV FLUIDS: Per Anesthesia report.SPECIMENS:1. Right knee synovial fluid.2. Right knee wound swab.3. Right knee bursal tissue.DRAINS: None.IMPLANTS: DermaClose wound closure device.COMPLICATIONS: None.INDICATIONS FOR PROCEDURE: This is a 57[facility] bursitisthat had failed previous irrigation and debridement at outside hospital.The patient was taken back to the operating room for irrigation anddebridement with application of a wound VAC. Earlier this admission,cultures grew MRSA. Infectious Disease was consulted and he has been on IVvancomycin throughout his admission. At the patient's most recent woundVAC changes, the wound was found to be granulating in well without anyevidence of persistent infection. He has also been afebrile for the past48 hours.After consulting with the Infectious Disease team, it was felt that hewould be appropriate for repeat irrigation and debridement with woundclosure at this time.PROCEDURE IN DETAIL: The patient was greeted in preoperative holding area.Informed consent was deemed to be appropriate. The operative site wasmarked by the attending physician. Preoperative antibiotics in the form ofIV vancomycin was administered. The patient is taken back to the operatingroom where general endotracheal anesthesia was induced. The patient wasplaced supine on the operating room table. The operative site was preppedand draped in the usual sterile fashion.A surgical time-out was performed. Everybody in the room stopped. Theinformed consent was read aloud. The procedure commenced after theoperative site and procedure were confirmed.We began by performing a right knee aspiration using an 18-gauge spinalneedle via superomedial approach. Roughly 12 mL of clear synovial fluidwas aspirated. We then proceeded with cleaning the wound. The patellartendon and surrounding musculature was gently debrided with a curette. Allnonviable tissue was excised. Specimens were taken for culture. The woundwas then irrigated with 3 L of normal saline and Betadine. We then placedthe wound closure device. The device was tensioned over a layer of Adapticand sutured into place using 3-0 nylon. A sterile dressing of Xeroformgauze, ABD, Kerlix, and Edna wrap was then applied. The patient was awokenfrom anesthesia and extubated without incident. He was transferred to [facility] in stable condition for postoperative monitoring.POSTOPERATIVE PLAN: The patient will be weightbearing as tolerated to theright lower extremity. He will maintain his dressing until his follow upin 1 week. He will be discharged home with Bactrim, Nora, and a stoolsoftener. We will plan on seeing the patient back in 1 week for woundevaluation and tensioning of the DermaClose device. The patient wasinstructed to call Dr. Mittal's office or the Orthopedic Surgeryresident communications representative with any questions or concerns prior to his followupappointment.Dr. Mittal was present throughout the entirety of the procedure.Electronically Signed by:Alek Mittal M.D. 11/14/2017 01:06 P Alek Mittal M.D. I was present for the entire procedure. Date Dict: 11/11/2017/02:42 P/Maude Espinal, KAMALJITate Trans: 11/12/2017 12:38 A/Adele_JN:[id number] 9cc: Fatou Ridley M.D. [address] [place] [address] Kristie Tamayo [address] [facility] [address] [place] [address] Normal [facility] *ANAEROBIC CULTUREon 018 *ANAEROBIC CULTURE Clinical Report: (D) Specimen/Source: SWAB/INTRAOP SPEC Collected: 11/11/2017 14:30 Status: Final Last Updated: 11/16/2017 08:46 (1) 2. Right knee swab. CULT RES (Final) No Anaerobes Isolated 5 Days Normal [facility] Comment on above: Order Comment: No: D o not add to previous draw Performed By: #### 5 6101 ####[place] [address] [facility].[address] *ANAEROBIC CULTURE Clinical Report: (D) Specimen/Source: FLUID/INTRAOP SPEC Collected: 11/11/2017 14:29 Status: Final Last Updated: 11/16/2017 08:46 (1) 1. Right knee aspiration. CULT RES (Final) No Anaerobes Isolated 5 Days Normal [facility] Comment on above: Order Comment: No: D o not add to previous draw Performed By: #### 5 6101 ####[facility] *BODY FLUID CULTUREon 2017 *BODY FLUID CULTURE Clinical Report: (D) Specimen/Source: FLUID/INTRAOP SPEC Collected: 11/11/2017 14:29 Status: Final Last Updated: 11/16/2017 09:06 (1) 1. Right knee aspiration. GRAM (Final) No Polys Seen No Bacteria Seen CYTOSPUN (Final) This Gram Stain was done on a cytocentrifuged specimen CULT RES (Final) No Growth Day 5 Normal [facility] Comment on above: Order Comment: No: D o not add to previous draw Performed By: #### 5 6101 ####[address] *FUNGAL CULTUREon 11-11-2017 *FUNGAL CULTURE Clinical Report: (D) Specimen/Source: FLUID/INTRAOP SPEC Collected: 11/11/2017 14:29 Status: Final Last Updated: 12/14/2017 15:51 (1) 1. Right knee aspiration. FS (Final) No Yeast or Fungal Elements Seen CULT RES (Final) Culture negative for fungus Normal [facility] Comment on above: Order Comment: No: D o not add to previous draw Performed By: #### 5 6101 ####[address] *WOUND CULTUREon 11-11-2017 *WOUND CULTURE Clinical Report: (D) Specimen/Source: WOUND/INTRAOP SPEC Collected: 11/11/2017 14:30 Status: Final Last Updated: 11/16/2017 09:07 (1) 2. Right knee swab. GRAM (Final) Rare Polys No Bacteria Seen CULT RES (Final) No Growth Day 5 Normal [facility] Comment on above: Order Comment: 2. Ri ght knee swab. Performed By: #### 6 2586 ####[place] [address] POC GLUCOSE LABon 11-11-2017 Glucose mass conc 114 mg/dL High 70-100 [facility] Comment on above: Performed By: #### 6 9756 ####[facility] [place] [address], [facility] BASIC METABOLIC PANELon 06- Calcium mass conc 8.6 mg/dL Normal 8.6-10.3 [facility] Comment on above: Order Comment: No: D o not add to previous draw Performed By: #### 6 2586 ####[facility] [place] [address], [place] Chloride molar conc 100 mmol/L Normal 98-107 [facility] Comment on above: Order Comment: No: D o not add to previous draw Performed By: #### 6 2586 ####[facility] [place] [address], [place] CO2 molar conc 33 mmol/L High 21-31 [facility] Comment on above: Order Comment: No: D o not add to previous draw Performed By: #### 6 2586 ####[facility] [place] [address], [place] Creatinine mass conc 1.03 mg/dL Normal 0.70-1.30 [facility] Comment on above: Order Comment: No: D o not add to previous draw Performed By: #### 6 2586 ####[facility] [place] [address], [place] GFR/1.73 sq M predicted among blacks MDRD vol rate/area (S/P/Bld) mL/min/{1.73_m2} Normal >60 [facility] Comment on above: Order Comment: No: D o not add to previous draw Performed By: #### 6 2586 ####[facility] [place] [address], [place] GFR/1.73 sq M predicted among non-blacks MDRD vol rate/area (S/P/Bld) mL/min/{1.73_m2} Normal >60 [facility] Comment on above: Order Comment: No: D o not add to previous draw Performed By: #### 6 2586 ####[facility] Glucose mass conc 106 mg/dL High 70-100 [facility] Comment on above: Order Comment: No: D o not add to previous draw Performed By: #### 6 2586 ####[facility] [place] [address], [facility] Potassium molar conc 4.0 mmol/L Normal 3.5-5.1 [facility] Comment on above: Order Comment: No: D o not add to previous draw Performed By: #### 6 2586 ####[facility] [place] [address], [facility] Sodium molar conc 136 mmol/L Normal 136-145 [facility] [facility] Comment on above: Order Comment: No: D o not add to previous draw Performed By: #### 6 2586 ####[facility] Urea nitrogen mass conc 11 mg/dL Normal 7-25 [facility] Comment on above: Order Comment: No: D o not add to previous draw Performed By: #### 6 2586 ####[address] [place] [address], [facility] CBC W/DIFFon 11-09-2017 ABS BASOPHILS 0.0 10*3/uL Normal 0.0-0.2 [facility] Comment on above: Order Comment: No: D o not add to previous draw Performed By: #### 6 2586 ####[facility] [place] [address], [facility] ABS NEUTROPHILS 1.4 10*3/uL Low 1.6-7.6 [facility] Comment on above: Order Comment: No: D o not add to previous draw Performed By: #### 6 2586 ####[facility] [place] [address], [facility] Basophils Auto #/vol (Bld) 0.0 % Normal 0.0-1.0 [facility] Comment on above: Order Comment: No: D o not add to previous draw Performed By: #### 6 2586 ####[facility] [place] [address], [facility] Eosinophils Auto #/vol (Bld) 0.0 10*3/uL Normal 0.0-0.5 [facility] Comment on above: Order Comment: No: D o not add to previous draw Performed By: #### 6 2586 ####[facility] [facility] [place] [address], [facility] Eosinophils/100 WBC Auto (Bld) 0.9 % Normal 0.0-6.0 [facility] Comment on above: Order Comment: No: D o not add to previous draw Performed By: #### 6 2586 ####[facility] [facility].[address] Erythrocyte distribution width Auto Ratio (RBC) 13.6 % Normal 11.5-15.0 [facility] Comment on above: Order Comment: No: D o not add to previous draw Performed By: #### 6 2586 ####[place] [address] [facility].[address] GIANT PLATELETS Present Normal [facility] Comment on above: Order Comment: No: D o not add to previous draw Performed By: #### 6 2586 ####[facility] [facility].[address] Hematocrit Auto Volume Fraction (Bld) 29.2 % Low 39.0-50.0 [facility] Comment on above: Order Comment: No: D o not add to previous draw Performed By: #### 6 2586 ####[facility] [facility] Hemoglobin mass conc (Bld) 9.2 g/dL Low 13.0-17.0 [facility] Comment on above: Order Comment: No: D o not add to previous draw Performed By: #### 6 2586 ####[facility] Lymphocytes Auto #/vol (Bld) 0.7 10*3/uL Low 1.2-4.0 [facility] Comment on above: Order Comment: No: D o not add to previous draw Performed By: #### 6 2586 ####[facility] [facility] Lymphocytes/100 WBC Auto (Bld) 30.0 % Normal 20.0-45.0 [facility] Comment on above: Order Comment: No: D o not add to previous draw Performed By: #### 6 2586 ####[facility] [facility].[address] MCH Auto Entitic mass (RBC) 27.7 pg Normal 27.0-33.0 [facility] Comment on above: Order Comment: No: D o not add to previous draw Performed By: #### 6 2586 ####[facility] [facility].[address] MCHC Auto mass conc (RBC) 31.5 g/dL Low 32.0-35.0 [facility] Comment on above: Order Comment: No: D o not add to previous draw Performed By: #### 6 2586 ####[facility] [facility].[address] MCV Auto Entitic volume (RBC) 88.0 fL Normal 82.0-98.0 [facility] Comment on above: Order Comment: No: D o not add to previous draw Performed By: #### 6 2586 ####[facility] Monocytes Auto #/vol (Bld) 0.2 10*3/uL Normal 0.1-1.0 [facility] Comment on above: Order Comment: No: D o not add to previous draw Performed By: #### 6 2586 ####[facility] [place] [address], [facility] MONOS 7.3 % Normal 5.0-12.0 [facility] Comment on above: Order Comment: No: D o not add to previous draw Performed By: #### 6 2586 ####[facility] [facility] Neutrophils/100 WBC Auto (Bld) 61.8 % Normal 40.0-72.0 [facility] Comment on above: Order Comment: No: D o not add to previous draw Performed By: #### 6 2586 ####[facility] [facility].[address] NRBC SCAN Present Normal [facility] Comment on above: Order Comment: No: D o not add to previous draw Performed By: #### 6 2586 ####[facility] [facility].[address] Nucleated RBC/100 WBC Ratio (Bld) 0 % Normal 0-0 [facility] Comment on above: Order Comment: No: D o not add to previous draw Performed By: #### 6 2586 ####[facility] [place] [address], [facility] PLAT CNT 211 10*3/uL Normal 150-400 [facility] Comment on above: Order Comment: No: D o not add to previous draw Performed By: #### 6 2586 ####[facility] [place] [address] [place] [address], [facility] RBC Auto #/vol (Bld) 3.32 10*6/uL Low 4.20-5.70 Th [facility] Comment on above: Order Comment: No: D o not add to previous draw Performed By: #### 6 2586 ####[facility] [facility].[address] WBC Auto #/vol (Bld) 2.24 10*3/uL Low 4.00-10.60 Th [facility] Comment on above: Order Comment: No: D o not add to previous draw Performed By: #### 6 2586 ####[facility] [facility].[address] *BLOOD CULTUREon 11-08-2017 *BLOOD CULTURE Clinical Report: (D) Specimen: BLOOD CULTURE Collected: 11/08/2017 17:46 Status: Final Last Updated: 11/14/2017 06:29 CULT RES (Final) No Growth Day 5 Normal [facility] Comment on above: Performed By: #### 6 2586 ####[facility] [facility].[address] BASIC METABOLIC PANELon 10-30 Calcium mass conc 8.5 mg/dL Low 8.6-10.3 [facility] Comment on above: Order Comment: No: D o not add to previous draw Performed By: #### 6 2586 ####[facility] [facility].[address] Chloride molar conc 100 mmol/L Normal 98-107 [facility] Comment on above: Order Comment: No: D o not add to previous draw Performed By: #### 6 2586 ####[facility] [facility] [place] [place] [address], [facility] CO2 molar conc 33 mmol/L High 21-31 [facility] Comment on above: Order Comment: No: D o not add to previous draw Performed By: #### 6 2586 ####[facility] [facility] [place] [place] [address], [facility] Creatinine mass conc 0.94 mg/dL Normal 0.70-1.30 [facility] Comment on above: Order Comment: No: D o not add to previous draw Performed By: #### 6 2586 ####[facility] [place] [address], [place] GFR/1.73 sq M predicted among blacks MDRD vol rate/area (S/P/Bld) mL/min/{1.73_m2} Normal >60 [facility] Comment on above: Order Comment: No: D o not add to previous draw Performed By: #### 6 2586 ####[facility] [place] [address], [place] GFR/1.73 sq M predicted among non-blacks MDRD vol rate/area (S/P/Bld) mL/min/{1.73_m2} Normal >60 [facility] Comment on above: Order Comment: No: D o not add to previous draw Performed By: #### 6 2586 ####[facility] [place] [address], [place] Glucose mass conc 96 mg/dL Normal 70-100 [facility] Comment on above: Order Comment: No: D o not add to previous draw Performed By: #### 6 2586 ####[facility] [place] [address], [place] Potassium molar conc 4.1 mmol/L Normal 3.5-5.1 [facility] Comment on above: Order Comment: No: D o not add to previous draw Performed By: #### 6 2586 ####[facility] [place] [address], [place] Sodium molar conc 134 mmol/L Low 136-145 [facility] Comment on above: Order Comment: No: D o not add to previous draw Performed By: #### 6 2586 ####[facility] [place] [address], [place] Urea nitrogen mass conc 11 mg/dL Normal 7-25 [facility] Comment on above: Order Comment: No: D o not add to previous draw Performed By: #### 6 2586 ####[facility] [facility].[address] CBC W/DIFFon 11-08-2017 ABS BASOPHILS 0.0 10*3/uL Normal 0.0-0.2 [facility] Comment on above: Order Comment: Yes: Add to Previous draw if able Performed By: #### 6 2586 ####[facility] ABS IMM GRANS 0.0 10*3/uL Normal 0.0-0.2 [facility] Comment on above: Order Comment: Yes: Add to Previous draw if able Performed By: #### 6 2586 ####[facility] [place] [address] ABS NEUTROPHILS 1.2 10*3/uL Low 1.6-7.6 [facility] Comment on above: Order Comment: Yes: Add to Previous draw if able Performed By: #### 6 2586 ####[facility] Basophils Auto #/vol (Bld) 0.8 % Normal 0.0-1.0 [facility] Comment on above: Order Comment: Yes: Add to Previous draw if able Performed By: #### 6 2586 ####[facility] Eosinophils Auto #/vol (Bld) 0.1 10*3/uL Normal 0.0-0.5 [facility] Comment on above: Order Comment: Yes: Add to Previous draw if able Performed By: #### 6 2586 ####[facility] Eosinophils/100 WBC Auto (Bld) 4.7 % Normal 0.0-6.0 [facility] Comment on above: Order Comment: Yes: Add to Previous draw if able Performed By: #### 6 2586 ####[facility] Erythrocyte distribution width Auto Ratio (RBC) 13.7 % Normal 11.5-15.0 [facility] Comment on above: Order Comment: Yes: Add to Previous draw if able Performed By: #### 6 2586 ####[facility] Hematocrit Auto Volume Fraction (Bld) 31.9 % Low 39.0-50.0 [facility] Comment on above: Order Comment: Yes: Add to Previous draw if able Performed By: #### 6 2586 ####[facility] [facility].[address] Hemoglobin mass conc (Bld) 9.6 g/dL Low 13.0-17.0 [facility] Comment on above: Order Comment: Yes: Add to Previous draw if able Performed By: #### 6 2586 ####[facility] [facility].[address] IMMATURE GRANS 1.2 % High 0.0-1.0 [facility] Comment on above: Order Comment: Yes: Add to Previous draw if able Performed By: #### 6 2586 ####[facility] Lymphocytes Auto #/vol (Bld) 0.8 10*3/uL Low 1.2-4.0 [facility] Comment on above: Order Comment: Yes: Add to Previous draw if able Performed By: #### 6 2586 ####[facility] Lymphocytes/100 WBC Auto (Bld) 32.7 % Normal 20.0-45.0 [facility] Comment on above: Order Comment: Yes: Add to Previous draw if able Performed By: #### 6 2586 ####[facility] MCH Auto Entitic mass (RBC) 27.6 pg Normal 27.0-33.0 [facility] Comment on above: Order Comment: Yes: Add to Previous draw if able Performed By: #### 6 2586 ####[facility] MCHC Auto mass conc (RBC) 30.1 g/dL Low 32.0-35.0 [facility] Comment on above: Order Comment: Yes: Add to Previous draw if able Performed By: #### 6 2586 ####[facility] MCV Auto Entitic volume (RBC) 91.7 fL Normal 82.0-98.0 [facility] Comment on above: Order Comment: Yes: Add to Previous draw if able Performed By: #### 6 2586 ####[facility] Monocytes Auto #/vol (Bld) 0.4 10*3/uL Normal 0.1-1.0 [facility] Comment on above: Order Comment: Yes: Add to Previous draw if able Performed By: #### 6 2586 ####[facility] MONOS 14.6 % High 5.0-12.0 [facility] Comment on above: Order Comment: Yes: Add to Previous draw if able Performed By: #### 6 2586 ####[facility] Neutrophils/100 WBC Auto (Bld) 46.0 % Normal 40.0-72.0 [facility] Comment on above: Order Comment: Yes: Add to Previous draw if able Performed By: #### 6 2586 ####[facility] [facility].[address] Nucleated RBC/100 WBC Ratio (Bld) 0 % Normal 0-0 [facility] Comment on above: Order Comment: Yes: Add to Previous draw if able Performed By: #### 6 2586 ####[facility] [place] [address] PLAT CNT 228 10*3/uL Normal 150-400 [facility] Comment on above: Order Comment: Yes: Add to Previous draw if able Performed By: #### 6 2586 ####[facility] [place] [address] RBC Auto #/vol (Bld) 3.48 10*6/uL Low 4.20-5.70 Th e [facility] Comment on above: Order Comment: Yes: Add to Previous draw if able Performed By: #### 6 2586 ####[facility] [place] [address].[address] WBC Auto #/vol (Bld) 2.54 10*3/uL Low 4.00-10.60 Th e [facility] Comment on above: Order Comment: Yes: Add to Previous draw if able Performed By: #### 6 2586 ####[address] CBC W/DIFFon 11-07-2017 ABS BASOPHILS 0.0 10*3/uL Normal 0.0-0.2 [facility] Comment on above: Order Comment: No: D o not add to previous draw Performed By: #### 0 0121 ####[facility] [place] [address].[address] ABS IMM GRANS 0.0 10*3/uL Normal 0.0-0.2 [facility] Comment on above: Order Comment: No: D o not add to previous draw Performed By: #### 0 0121 ####[facility] [facility] [place] [address], [facility] ABS NEUTROPHILS 1.7 10*3/uL Normal 1.6-7.6 [facility] Comment on above: Order Comment: No: D o not add to previous draw Performed By: #### 0 0121 ####[facility] [place] [address], [facility] Basophils Auto #/vol (Bld) 0.4 % Normal 0.0-1.0 [facility] Comment on above: Order Comment: No: D o not add to previous draw Performed By: #### 0 0121 ####[facility] [facility] [place] [address], [facility] Eosinophils Auto #/vol (Bld) 0.1 10*3/uL Normal 0.0-0.5 [facility] Comment on above: Order Comment: No: D o not add to previous draw Performed By: #### 0 0121 ####[facility] [place] [address], [facility] Eosinophils/100 WBC Auto (Bld) 3.6 % Normal 0.0-6.0 [facility] Comment on above: Order Comment: No: D o not add to previous draw Performed By: #### 0 0121 ####[facility] Erythrocyte distribution width Auto Ratio (RBC) 13.3 % Normal 11.5-15.0 [facility] Comment on above: Order Comment: No: D o not add to previous draw Performed By: #### 0 0121 ####[facility] Hematocrit Auto Volume Fraction (Bld) 31.4 % Low 39.0-50.0 [facility] Comment on above: Order Comment: No: D o not add to previous draw Performed By: #### 0 0121 ####[facility] Hemoglobin mass conc (Bld) 9.8 g/dL Low 13.0-17.0 [facility] Comment on above: Order Comment: No: D o not add to previous draw Performed By: #### 0 0121 ####[facility] IMMATURE GRANS 1.1 % High 0.0-1.0 [facility] Comment on above: Order Comment: No: D o not add to previous draw Performed By: #### 0 0121 ####[facility] Lymphocytes Auto #/vol (Bld) 0.6 10*3/uL Low 1.2-4.0 [facility] Comment on above: Order Comment: No: D o not add to previous draw Performed By: #### 0 0121 ####[facility] Lymphocytes/100 WBC Auto (Bld) 21.0 % Normal 20.0-45.0 [facility] Comment on above: Order Comment: No: D o not add to previous draw Performed By: #### 0 0121 ####[facility] MCH Auto Entitic mass (RBC) 28.0 pg Normal 27.0-33.0 [facility] Comment on above: Order Comment: No: D o not add to previous draw Performed By: #### 0 0121 ####[facility] MCHC Auto mass conc (RBC) 31.2 g/dL Low 32.0-35.0 [facility] Comment on above: Order Comment: No: D o not add to previous draw Performed By: #### 0 0121 ####[facility] MCV Auto Entitic volume (RBC) 89.7 fL Normal 82.0-98.0 [facility] Comment on above: Order Comment: No: D o not add to previous draw Performed By: #### 0 0121 ####[facility] [place] [address], [facility] Monocytes Auto #/vol (Bld) 0.3 10*3/uL Normal 0.1-1.0 [facility] Comment on above: Order Comment: No: D o not add to previous draw Performed By: #### 0 0121 ####[facility] [facility].[address] MONOS 10.9 % Normal 5.0-12.0 [facility] Comment on above: Order Comment: No: D o not add to previous draw Performed By: #### 0 0121 ####[facility] [facility].[address] Neutrophils/100 WBC Auto (Bld) 63.0 % Normal 40.0-72.0 [facility] Comment on above: Order Comment: No: D o not add to previous draw Performed By: #### 0 0121 ####[facility] [facility].[address] Nucleated RBC/100 WBC Ratio (Bld) 0 % Normal 0-0 [facility] Comment on above: Order Comment: No: D o not add to previous draw Performed By: #### 0 0121 ####[facility] [facility] [place] [address], [facility] PLAT CNT 237 10*3/uL Normal 150-400 [facility] Comment on above: Order Comment: No: D o not add to previous draw Performed By: #### 0 0121 ####[facility] [place] [address], [facility] RBC Auto #/vol (Bld) 3.50 10*6/uL Low 4.20-5.70 Th e [facility] Comment on above: Order Comment: No: D o not add to previous draw Performed By: #### 0 0121 ####[facility] WBC Auto #/vol (Bld) 2.76 10*3/uL Low 4.00-10.60 Th e [facility] Comment on above: Order Comment: No: D o not add to previous draw Performed By: #### 0 0121 ####[facility] PROCALCITONINon 11-07-2017 Protein mass conc 0.10 ng/mL Normal 0.00-0.10 [facility] Comment on above: Order Comment: Yes: Add to Previous draw if able Result Comment: Susp ected Lower Respiratory Tract Infection:0.1-0.25ng/mL- Low likelihood for bacterial infection;Antibioticsdiscouraged.*>0.25ng/mL- Increased likelihood bacterial infection;Antibioticsencouraged. Suspected Sepsis: Strongly consider initiating antibiotics in allunstable patients.0.1-0.5ng/mL- Low likelihood for sepsis; Antibiotics discouraged.*>0.5ng/mL- Increased likelihood sepsis; Antibiotics encouraged.>2.0ng/mL- High risk of sepsis/septic shock; Antibiotics stronglyencouraged. *Recommend retesting PCT within 6-12hours if clinically indicated andinitial PCT<0.5ng/mL Performed By: #### 6 [id number] ####[facility] [facility].[address] *BLOOD CULTUREon 11-06-2017 *BLOOD CULTURE Clinical Report: (D) Specimen: BLOOD CULTURE Collected: 11/06/2017 11:01 Status: Final Last Updated: 11/11/2017 15:39 CULT RES (Final) No Growth Day 5 Normal [facility] Comment on above: Performed By: #### 0 0121 ####[facility] [facility].[address] BASIC METABOLIC PANELon Calcium mass conc 8.5 mg/dL Low 8.6-10.3 [facility] Comment on above: Order Comment: No: D o not add to previous draw Performed By: #### 5 0608, 22571 ####[facility] [facility].[address] Chloride molar conc 102 mmol/L Normal 98-107 [facility] Comment on above: Order Comment: No: D o not add to previous draw Performed By: #### 5 0608, 81751 ####[facility] [facility] [place] [address], [facility] CO2 molar conc 30 mmol/L Normal 21-31 [facility] Comment on above: Order Comment: No: D o not add to previous draw Performed By: #### 5 06, 63166 ####[facility] [facility] [place] [address], [facility] Creatinine mass conc 0.91 mg/dL Normal 0.70-1.30 [facility] Comment on above: Order Comment: No: D o not add to previous draw Performed By: #### 5 0608, 21501 ####[facility] [facility] [place] [address], [facility] GFR/1.73 sq M predicted among blacks MDRD vol rate/area (S/P/Bld) mL/min/{1.73_m2} Normal >60 [facility] Comment on above: Order Comment: No: D o not add to previous draw Performed By: #### 5 0608, 99316 ####[facility] [place] [address], [facility] GFR/1.73 sq M predicted among non-blacks MDRD vol rate/area (S/P/Bld) mL/min/{1.73_m2} Normal >60 [facility] Comment on above: Order Comment: No: D o not add to previous draw Performed By: #### 5 0608, 11907 ####[facility] [place] [address], [facility] Glucose mass conc 99 mg/dL Normal 70-100 [facility] Comment on above: Order Comment: No: D o not add to previous draw Performed By: #### 5 06, 31688 ####[facility] [place] [address], [place] Potassium molar conc 4.1 mmol/L Normal 3.5-5.1 [facility] Comment on above: Order Comment: No: D o not add to previous draw Performed By: #### 5 0608, 38307 ####[facility] [place] [address], [place] Sodium molar conc 137 mmol/L Normal 136-145 [facility] Comment on above: Order Comment: No: D o not add to previous draw Performed By: #### 5 0608, 10380 ####[facility] [place] [address], [facility] Urea nitrogen mass conc 9 mg/dL Normal 7-25 [facility] Comment on above: Order Comment: No: D o not add to previous draw Performed By: #### 5 06, 04908 ####[facility] CBC W/DIFFon 11-06-2017 ABS BASOPHILS 0.0 10*3/uL Normal 0.0-0.2 [facility] Comment on above: Order Comment: No: D o not add to previous draw Performed By: #### 5 0608, 31088 ####[facility] ABS IMM GRANS 0.0 10*3/uL Normal 0.0-0.2 [facility] Comment on above: Order Comment: No: D o not add to previous draw Performed By: #### 5 0608, 95336 ####[address] ABS NEUTROPHILS 3.9 10*3/uL Normal 1.6-7.6 [facility] Comment on above: Order Comment: No: D o not add to previous draw Performed By: #### 5 06, 60568 ####[facility] [place] [address] Basophils Auto #/vol (Bld) 0.5 % Normal 0.0-1.0 [facility] Comment on above: Order Comment: No: D o not add to previous draw Performed By: #### 5 06, 91708 ####[address] Eosinophils Auto #/vol (Bld) 0.3 10*3/uL Normal 0.0-0.5 [facility] Comment on above: Order Comment: No: D o not add to previous draw Performed By: #### 5 06, 28022 ####[place] [address] Eosinophils/100 WBC Auto (Bld) 5.2 % Normal 0.0-6.0 [facility] Comment on above: Order Comment: No: D o not add to previous draw Performed By: #### 5 06, 23522 ####[facility] [facility].[address] Erythrocyte distribution width Auto Ratio (RBC) 13.1 % Normal 11.5-15.0 [facility] Comment on above: Order Comment: No: D o not add to previous draw Performed By: #### 5 607, 89475 ####[facility] [facility].[address] Hematocrit Auto Volume Fraction (Bld) 30.6 % Low 39.0-50.0 [facility] Comment on above: Order Comment: No: D o not add to previous draw Performed By: #### 5 607, 88991 ####[address] Hemoglobin mass conc (Bld) 9.4 g/dL Low 13.0-17.0 [facility] Comment on above: Order Comment: No: D o not add to previous draw Performed By: #### 5 607, 62043 ####[address] IMMATURE GRANS 0.3 % Normal 0.0-1.0 [facility] Comment on above: Order Comment: No: D o not add to previous draw Performed By: #### 5 607, 63980 ####[address] Lymphocytes Auto #/vol (Bld) 1.3 10*3/uL Normal 1.2-4.0 [facility] Comment on above: Order Comment: No: D o not add to previous draw Performed By: #### 5 607, 73210 ####[address] Lymphocytes/100 WBC Auto (Bld) 21.6 % Normal 20.0-45.0 [facility] Comment on above: Order Comment: No: D o not add to previous draw Performed By: #### 5 607, 60298 ####[facility] [facility].[address] MCH Auto Entitic mass (RBC) 27.5 pg Normal 27.0-33.0 [facility] Comment on above: Order Comment: No: D o not add to previous draw Performed By: #### 5 607, 56952 ####[facility] [facility] MCHC Auto mass conc (RBC) 30.7 g/dL Low 32.0-35.0 [facility] Comment on above: Order Comment: No: D o not add to previous draw Performed By: #### 5 607, 94218 ####[facility] [facility].[address] MCV Auto Entitic volume (RBC) 89.5 fL Normal 82.0-98.0 [facility] Comment on above: Order Comment: No: D o not add to previous draw Performed By: #### 5 607, 05441 ####[place] [address] [facility].[address] Monocytes Auto #/vol (Bld) 0.6 10*3/uL Normal 0.1-1.0 [facility] Comment on above: Order Comment: No: D o not add to previous draw Performed By: #### 5 607, 85579 ####[facility] [facility].[address] MONOS 9.4 % Normal 5.0-12.0 [facility] Comment on above: Order Comment: No: D o not add to previous draw Performed By: #### 5 06, 28412 ####[facility] Neutrophils/100 WBC Auto (Bld) 63.0 % Normal 40.0-72.0 [facility] Comment on above: Order Comment: No: D o not add to previous draw Performed By: #### 5 0608, 10870 ####[facility] [facility].[address] Nucleated RBC/100 WBC Ratio (Bld) 0 % Normal 0-0 [facility] Comment on above: Order Comment: No: D o not add to previous draw Performed By: #### 5 0608, 30836 ####[facility] [facility].[address] PLAT CNT 260 10*3/uL Normal 150-400 [facility] Comment on above: Order Comment: No: D o not add to previous draw Performed By: #### 5 0608, 13974 ####[place] [address] [facility].[address] RBC Auto #/vol (Bld) 3.42 10*6/uL Low 4.20-5.70 Th [facility] Comment on above: Order Comment: No: D o not add to previous draw Performed By: #### 5 0608, 63765 ####[place] [address] [facility].[address] WBC Auto #/vol (Bld) 6.15 10*3/uL Normal 4.00-10.60 Th e [facility] Comment on above: Order Comment: No: D o not add to previous draw Performed By: #### 5 0608, 96779 ####[address] Consultationon 11-06-2017 Consultation MR#: [id number]ior Rowland Date of Service: 11/06/2017 Room #: 4AB [id number] Birthdate: 1960 Referring Physician: CONSULTATIONREASON FOR CONSULTATION: Fever, possible right knee bursitis/sepsis.HISTORY OF PRESENT ILLNESS: This is a 57-year-old gentleman with no pastmedical history, who [facility]. The patient has right knee septic bursitis andhe underwent for I and D at [facility]. Culture from [facility] showed MRSA. The patient was transferred to [facility] to be evaluatedby Orthopedic Service. The patient underwent for I and D and right kneeaspiration, bursectomy by Orthopedic Service on the , all the culturesare back negative, twinge was placed. Also, the patient went for rightKnee debridement on November 05. At the time of the debridement, the patientdenied any chest pain. Denied any shortness of breath. Denied anyabdominal pain, any nausea or vomiting or diarrhea. The patient wascomplaining of cough productive of sputum production. The patient wascomplaining of fever and chills. His temperature was 101. The patient didnot spike any fever in the last 4 days since admission on November 02, 2017.Also, his heart rate was in 90-95. The patient denied any new joint pain.The patient reported that his pain is improving. The patient describes hispain as sharp, constant, corresponding to the pain medication, improvingsince admission. The patient denies any urinary symptoms including nodysuria, no urgency, no frequency.REVIEW OF SYSTEMS: Unless I mentioned above, otherwise negative.PAST MEDICAL HISTORY: None.PAST SURGICAL HISTORY: Cervical neck surgery.SOCIAL HISTORY: The patient denies smoking, alcohol, or drug abuse.FAMILY HISTORY: Noncontributory.PHYSICAL EXAMINATION: VITAL SIGNS: Temperature is 101.6, heart rate is95, respiratory rate 18, blood pressure is 141/59.LABORATORY DATA: White blood cells 6.1, hemoglobin is 9.4, glucose 99,creatinine 0.9, sodium is 137, potassium is 4.9, chloride is 102.PHYSICAL EXAMINATION: GENERAL: The patient was awake, alert, oriented x3.Answering all the questions. No acute distress.HEAD: Normocephalic and atraumatic.NECK: Supple. Nontender.LUNGS: Clear to auscultation bilaterally. No wheezing. No crackles. Nochest wall tenderness.CARDIOVASCULA R: Regular rhythm. Regular rate. Multiple PVCs on themonitor. No murmurs. No JVD.ABDOMEN: Soft, nontender, nondistended. No organomegaly.EXTREMITIES : No swelling. No edema. Right knee was wrapped and wound VACin place.NEUROLOGICAL: The patient was moving all extremities without any focalneurological deficits.IMAGING: I reviewed his chest x-ray. no signs of pneumonia. Noconsolidation.ASSESSME NT:1. Sepsis could be due to left knee or it could be due to right knee septic bursitis.2. Right knee septic bursitis status post I and D.PLAN: We will repeat 2 sets of blood culture. We will get lactic acid.We will check the patient's urine. We will continue on vancomycin at thispoint or follow up also with the ID recommendation regarding antibiotics.Cardiology was consulted by Orthopedic Service to evaluate for PVCs wererecommended to do echocardiogram. We will discuss with the ID regardinggoing for SILVANO instead of echocardiogram. The patient continued to spikefever. The patient should be on DVT prophylaxis in the hospital stay.Electronically Signed by:MYNOR Johnson MD 11/08/2017 09:21 A ____MYNOR Johnson, MDDate Dict: 11/06/2017/10:53 A/MYNOR Johnson, MDDate Trans: 11/06/2017 11:40 A/mmoDN_JN:[id number]: Fatou Ridley M.D. [address] [place] [address] Kristie Tamayo, DO [address] [facility] [address] [place] [address] Normal [facility] LACTATE BLOODon 11-06-2017 Lactate molar conc 1.0 mmol/L Normal .5-2.2 [facility] Comment on above: Order Comment: No: D o not add to previous draw Performed By: #### 0 0121 ####[facility] [address], [facility] MAGNESIUM BLOODon 11-06-2017 Magnesium mass conc 1.9 mg/dL Normal 1.9-2.7 [facility] Comment on above: Order Comment: No: D o not add to previous draw Performed By: #### 0 0121 ####[facility] [place] [address], [facility] Magnesium mass conc 2.0 mg/dL Normal 1.9-2.7 [facility] Comment on above: Performed By: #### 5 0608, 56879 ####[facility] Operative Reporton 8 Operative Report MR#: [id number] [facility] Name[facility] J[facility]ior Rowland Room #: 4AB [id number] Discharge Date: Birthdate: 1960 OPERATIVE REPORTDATE OF SURGERY: 11/05/2017SURGEON: Alek Mittal M.D.ASSISTANTS:1. Mt Bowen MD.2. Rio Taylor MD.3. Maude Espinal MD.PREOPERATIVE DIAGNOSIS: Right septic prepatellar bursitis with right kneewound measuring 11 x 6 cm.PROCEDURE PERFORMED:1. Irrigation and debridement down to the level of muscle of right knee wound measuring 11 x 6 cm.2. Application of wound VAC.IMPLANTS: Medium wound VAC.CLINICAL SUMMARY: Mr. Rowland is a 57-year-old male who has a rightseptic prepatellar bursitis, was previously washed out. His wound was leftopen. He is offered to go for repeat irrigation and debridement today withwound VAC. He agreed and signed surgical consent.DESCRIPTION OF PROCEDURE: The patient seen in preop holding area.Informed consent was confirmed. The operative site was marked. He wastaken to the operating room, placed supine on the operating table. Generalanesthesia was induced. The right lower extremity was prepped and drapedin standard sterile fashion. Began our procedure with surgical time-outindicating correct procedure, site, and administration of preoperativeantibiotics. We then began by evaluating his wound and measures 11 x 6 cmand went down the level of muscle. The wound was clean. No activepurulence or evidence of any further infection at this time. It was thusthoroughly irrigated with 3 L of sterile saline via cysto-tubingas well as a copious amount of Betadine and once again then with moresterile saline. The wound VAC was then applied without incident with goodseal. He was then awoken from anesthesia and taken to the PACU in goodcondition.Dr. Mittal was present throughout the entire procedure.Electronically Signed by:Alek Mittal M.D. 11/07/2017 11:10 A Alek Mittal M.D. I was present for the entire procedure. Date Dict: 11/05/2017/02:05 P/Mt Bowen M.D.Date Trans: 11/06/2017 01:02 A/Adele_JN:[id number]: Fatou Ridley M.D. [address] [facility] [address] Kristie Tamayo, DO [address] [facility] [address] [place] [id number] Normal [facility] PHOSPHORUS BLOODon Phosphate mass conc 3.0 mg/dL Normal 2.5-5.0 [facility] Comment on above: Performed By: #### 0 0121 ####[address] PORTABLE CHEST 1 VIEWon PORTABLE CHEST 1 VIEW [facility] Ilnnu[address] [place] [address] ==Patient Name: JÚNIOR ROWLAND : 1960ex: MAge: Race: WhiteMRN: [id number]. Location: [id number] Status: IVisit #: [id number] Date: 11/06/2017 9:50:00 AMCompleted Date: 11/06/2017 10:37 AMRequesting Provider: GILDA HARRIS Attending Provider: ALEK MITTAL Report Copy To: Signs & Symptoms: TachycardiaHistory: Patient history not availableComments: R/O Pneumonia, abnormal RCMSExam: PORTABLE CHEST 1 VIEWAccession #: [id number] =========PORTABLE CHEST 1 VIEW 11/06/2017 10:37 AM EDT SIGNS AND SYMPTOMS: Tachycardia TECHNOLOGIST COMMENTS: shortness of breath QUESTION FOR THE RADIOLOGIST: R/O Pneumonia, abnormal RCMS PROTOCOL: AP(PA) view was obtained. COMPARISON: No prior FINDINGS: Upper mediastinum unremarkable. Hilar regions are symmetric there is some linear atelectasis or scarring in the right upper lobe and around the left hilum. No pneumonia no pleural effusion and no evidence of pneumothorax. IMPRESSION: Linear atelectasis or scarring in the right upper lobe and around the left hilum. Electronically signed by:Elizabeth Serrano. Transcribed by: [email or web address], User Resident: Electronically Signed by: ELIZABETH SERRANO @ 11/06/2017 11:37 AM Normal [facility] Comment on above: Order Comment: No: D o not add to previous draw TROPONIN-Ion 11-06-2017 Troponin I.cardiac mass conc 0.01 ng/mL Normal 0.00-0.04 [facility] Comment on above: Result Comment: REFE RENCE RANGES: 0.00 - 0.04 ng/ml NORMAL 0.05 - 0.50 ng/ml INDETERMINATE > 0.50 ng/ml CONSISTENT WITH AN M.I. Performed By: #### 0 0121 ####[facility] URINALYSIS REFLEXon 11-07-19 18 APPEARANCE CLEAR Normal CLEAR [facility] Comment on above: Order Comment: No: D o not add to previous draw Performed By: #### 0 0121 ####[facility] [place] [address], [facility] BILIRUBIN Negative Normal NEGATIVE [facility] Comment on above: Order Comment: No: D o not add to previous draw Performed By: #### 0 0121 ####[facility] [place] [address], [facility] BLOOD SMALL Abnormal NEGATIVE [facility] Comment on above: Order Comment: No: D o not add to previous draw Performed By: #### 0 0121 ####[facility] [place] [address], [facility] COLOR YELLOW Normal YELLOW [facility] Comment on above: Order Comment: No: D o not add to previous draw Performed By: #### 0 0121 ####[facility] [place] [address], [facility] EPIS OCC Normal FEW,OCC,NON E SEEN [facility] Comment on above: Order Comment: No: D o not add to previous draw Performed By: #### 0 0121 ####[facility] [facility] [place] [address], [facility] GLUCOSE Negative Normal NEGATIVE [facility] Comment on above: Order Comment: No: D o not add to previous draw Performed By: #### 0 0121 ####[facility] [place] [address], [facility] INR Coag RelTime (Bld) 6-10 Abnormal NONE SEEN Th e [facility] Comment on above: Order Comment: No: D o not add to previous draw Performed By: #### 0 0121 ####[facility] [facility] [place] [address], [facility] KETONE Negative Normal NEGATIVE [facility] Comment on above: Order Comment: No: D o not add to previous draw Performed By: #### 0 0121 ####[facility] [place] [address], [facility] LEUK AVTAR Negative Normal NEGATIVE [facility] Comment on above: Order Comment: No: D o not add to previous draw Performed By: #### 0 0121 ####[facility] [place] [address], [facility] MUCUS THREADS OCC Abnormal NONE SEEN The [facility] Comment on above: Order Comment: No: D o not add to previous draw Performed By: #### 0 0121 ####[facility] [place] [address], [facility] NITRITE Negative Normal NEGATIVE The [facility] Comment on above: Order Comment: No: D o not add to previous draw Performed By: #### 0 0121 ####[facility] [facility].[address] PH 7.0 Normal 5.0-8.0 [facility] Comment on above: Order Comment: No: D o not add to previous draw Performed By: #### 0 0121 ####[facility] [place] [address], [facility] Protein mass conc Negative Normal NEGATIVE [facility] Comment on above: Order Comment: No: D o not add to previous draw Performed By: #### 0 0121 ####[facility] [place] [address], [facility] SPEC GRAV 1.012 Low 1.015-1.020 [facility] Comment on above: Order Comment: No: D o not add to previous draw Performed By: #### 0 0121 ####[facility] [facility] [place] [address], [facility] WBC UA NONE SEEN Normal NONE SEEN The [facility] Comment on above: Order Comment: No: D o not add to previous draw Performed By: #### 0 0121 ####[facility] [place] [address], [facility] Consultationon 11-05-2017 Consultation MR#: [id number] Center Pt. Name: Júnior Rowland Date of Service: 11/04/2017 Room #: [id number] Birthdate: 1960 Referring Physician: CONSULTATIONCONSULTING SERVICE: Orthopedics.CHIEF COMPLAINT: Postoperative pain management.HISTORY OF PRESENT ILLNESS: The patient is a 57-year-old male who ispostop day #1 from a right knee I and D. Pain Management was consulted foracute postoperative pain control. The patient currently complains of rightknee pain, 8/10, throbbing, sometimes sharp in nature, radiates up and downleg, no pain indicated in any other location. The patient has no history ofchronic pain and does not take pain meds at home. In the hospital,currently on Morphine 2-4 mg q.2 p.r.n. and Percocet 1-2 tabs q.4 p.r.n.REVIEW OF SYSTEMS: Negative except for as mentioned above.PAST MEDICAL HISTORY: Hypertension, obstructive sleep apnea.SURGICAL HISTORY: Multiple knee I and Ds.SOCIAL HISTORY: Noncontributory.PHYSICAL EXAMINATION: VITAL SIGNS: Temperature 98.6 degrees Farenheit,heart rate 72, respiratory rate 16, blood pressure 125/65, SpO2 100% onroom air.GENERAL APPEARANCE: Alert and oriented x3, in no acute distress.CARDIOVASCULAR: Regular rate and rhythm.LUNGS: Positive breath sounds bilaterally.ABDOMEN: Soft, nontender. Positive bowel sounds.EXTREMITIES: 5/5 strength throughout.NEUROLOGIC: Grossly intact.PSYCHIATRIC: Appropriate.PLAN: Acute postoperative pain. We will start Dilaudid 1 mg q.3 p.r.n. forbreakthrough pain, oxycodone 5-10 mg q.4 p.r.n. Plan discussed withfellow.Electronicall y Signed by:Abel Boyer M.D. 11/16/2017 03:04 P ____Abel Boyer M.D. I was not present but assume all responsibility for the exam. NOTBILLABLEDate Dict: 11/04/2017/02:30 P/Elizabeth Martin M.D.Date Trans: 11/05/2017 01:56 A/mmoDN_JN:[id number] 4cc: Fatou Ridley M.D. [address] [address] Kristie Tamayo, DO [address] [facility] [address] Normal [facility] POC GLUCOSE LABon 11-05-2017 Glucose mass conc 99 mg/dL Normal 70-100 [facility] Comment on above: Performed By: #### 5 0608, [id number] ####[facility] [facility].[address] VANCOMYCIN TROUGHon 11-06-19 18 VANCOMYCIN TROU 14.8 mcg/mL Normal 5.0-20.0 [facility] Comment on above: Performed By: #### 5 0608, 23122 ####[facility] [facility].[address] Operative Reporton 8 Operative Report MR#: [id number] [facility] J[facility]ior Rowland Room #: [id number] Discharge Date: Birthdate: 1960 OPERATIVE REPORTDATE OF SURGERY: 11/03/2017SURGEON: Alek Mittal M.D.PREOPERATIVE DIAGNOSIS: Right knee septic bursitis.POSTOPERATIVE DIAGNOSIS: Right knee septic bursitis.PROCEDURE PERFORMED:1. Right knee aspiration.2. Right knee bursectomy.3. Right knee irrigation and debridement down to and including muscle.ASSISTANTS:1. Dr. Maude Espinal.2. Dr. Rio Taylor.3. Dr. Mt Bowen.ANESTHESIA: General endotracheal.IV FLUIDS: Per Anesthesia report.ESTIMATED BLOOD LOSS: 100 mL.SPECIMENS:1. Right knee synovial fluid.2. Right bursal tissue.3. Right bursal fluid.DRAINS: None.TOURNIQUET: Placed, but not utilized.COMPLICATIONS: None.INDICATIONS FOR PROCEDURE: This is a 57-year-old male with a right kneeseptic bursitis, who underwent irrigation and debridement at [facility]. He was transferred here for further management when he continuedto have persistent symptoms despite surgical management. After discussingthe risks and benefits of operative versus nonoperative management, hetends to proceed with the aforementioned procedures. Informed consent wasobtained.PROCEDURE IN DETAIL: The patient was greeted in the preoperative holdingarea. Informed consent was deemed to be appropriate. The operative sitewas marked by the attending physician. Preoperative antibiotics were helduntil after cultures could be obtained. The patient was taken back to theoperating room and general endotracheal anesthesia was induced. Thepatient was placed supine on the operating room table. A nonsteriletourniquet was placed. The patient had a Shirley drain from his priorprocedure, which was removed. The operative site was then prepped anddraped in the usual sterile fashion.A surgical time-out was performed. Everybody in the room stopped. Thesurgical consent was read aloud and the procedure commenced after thesurgical site and procedure were confirmed.We began by removing the amandeep from the patient's prior incision. Webegan by performing a right knee aspiration via superomedial approach.Approximately 4 mL of serosanguineous fluid was aspirated. We then removedthe amandeep from the patient's prior surgery. We opened up the patient'sincision and extended it both proximally and distally. Purulent fluid wasidentified and a swab was used to obtain culture samples. The peritenonsurrounding the patellar tendon was disrupted. However, the patellartendon was in continuity. The retinaculum was inspected and there was nocommunication between the superficial tissues and the intra-articular spacewas identified. The remainder of the patellar bursa was excised with arongeur. The patellar tendon and extracapsular tissues were gently debridedwith a curette and all nonviable tissue was sharply excised. The wound wasthen irrigated with 3 L of normal saline and Betadine. A nctpgjfoxh-zl-xvk dressing was placed. The wound was then dressed with a steriledressing of gauze, Kerlix, and an Edna wrap. The patient was awoken fromanesthesia and extubated without complication. The patient was transferredin stable condition to the PACU for postoperative monitoring.POSTOPERATIVE PLAN: The patient will be made weightbearing as tolerated tothe right lower extremity. He will undergo wet-to-dry dressing changesbeginning tomorrow. We will continue him on vancomycin and transition himto culture specific antibiotics pending his laboratory results. We willhave him mobilize with physical therapy and occupational therapy. We willstart him on Lovenox for DVT prophylaxis tomorrow.Dr. Mittal was present for all critical portions of procedure andimmediately available thereafter.Reviewed By:Maude Espinal MD 11/04/2017 08:54 AElectronically Signed by:Alek Mittal M.D. 11/07/2017 11:09 A Alek Mittal M.D. I was present for the damian and critical portions and I was otherwiseimmediately available to assist. Date Dict: 11/03/2017/06:52 P/Maude Espinal, MDDate Trans: 11/03/2017 11:16 P/mmoDN_JN:[id number] 2cc: Fatou Ridley M.D. [address] [place] [address] Kristie Tamayo, DO [address] [facility] [address] [place] [address] Normal [facility] *ANAEROBIC CULTUREon 018 *ANAEROBIC CULTURE Clinical Report: (D) Specimen/Source: FLUID/INTRAOP SPEC Collected: 11/03/2017 18:37 Status: Final Last Updated: 11/08/2017 06:25 (1) #2 Right Knee Synovial Fluid CULT RES (Final) No Anaerobes Isolated 5 Days Normal [facility] Comment on above: Order Comment: No: D o not add to previous draw Performed By: #### 5 0608, [address]2427 ####[address] [address] [address] *ANAEROBIC CULTURE Clinical Report: (D) Specimen/Source: TISSUE/INTRAOP SPEC Collected: 11/03/2017 18:35 Status: Final Last Updated: 11/08/2017 05:30 (1) #3 Right Knee Tissue ISO (Final) No Anaerobes Isolated Day 5 Normal [facility] Comment on above: Order Comment: No: D o not add to previous draw Performed By: #### 5 0608, 30617 ####[facility] *ANAEROBIC CULTURE Clinical Report: (D) Specimen/Source: SWAB/INTRAOP SPEC Collected: 11/03/2017 18:30 Status: Final Last Updated: 11/08/2017 05:30 (1) #1 Right Knee swab ISO (Final) No Anaerobes Isolated Day 5 Normal [facility] Comment on above: Order Comment: No: D o not add to previous draw Performed By: #### 5 0608, 48091 ####[facility] *BODY FLUID CULTUREon 2017 *BODY FLUID CULTURE Clinical Report: (D) Specimen/Source: FLUID/INTRAOP SPEC Collected: 11/03/2017 18:37 Status: Final Last Updated: 11/08/2017 07:01 (1) #2 Right Knee Synovial Fluid GRAM (Final) Rare Polys No Bacteria Seen CULT RES (Final) No Growth Day 5 Normal [facility] Comment on above: Order Comment: #2 Ri ght Knee Synovial Fluid Performed By: #### 3 0318 ####[facility] *FUNGAL CULTUREon 11-03-2017 *FUNGAL CULTURE Clinical Report: (D) Specimen/Source: FLUID/INTRAOP SPEC Collected: 11/03/2017 18:37 Status: Final Last Updated: 12/04/2017 13:45 (1) #2 Right Knee Synovial Fluid FS (Final) No Yeast or Fungal Elements Seen CULT RES (Final) Culture negative for fungus Normal [facility] Comment on above: Order Comment: #2 Ri ght Knee Synovial Fluid Performed By: #### 3 0323 ####[facility] *FUNGAL CULTURE Clinical Report: (D) Specimen/Source: TISSUE/INTRAOP SPEC Collected: 11/03/2017 18:35 Status: Final Last Updated: 12/04/2017 13:45 (1) #3 Right Knee Tissue FS (Final) No Yeast or Fungal Elements Seen CULT RES (Final) Culture negative for fungus Normal [facility] Comment on above: Order Comment: No: D o not add to previous draw Performed By: #### 5 0608, 27070 ####[facility] *TISSUE CULTUREon 11-03-2017 *TISSUE CULTURE Clinical Report: (D) Specimen/Source: TISSUE/INTRAOP SPEC Collected: 11/03/2017 18:35 Status: Final Last Updated: 11/06/2017 11:22 (1) #3 Right Knee Tissue GRAM (Final) Many Polys No Bacteria Seen ISO (Final) Staphylococcus aureus Isolated from broth culture Susceptibility To Follow Normal [facility] Comment on above: Order Comment: #3 Ri ght Knee Tissue Performed By: #### 3 0338 ####[facility] [place] [address] *WOUND CULTUREon 11-03-2017 *WOUND CULTURE Clinical Report: (C) Specimen/Source: WOUND/INTRAOP SPEC Collected: 11/03/2017 18:30 Status: Final Last Updated: 11/10/2017 08:47 (1) #1 Right Knee swab GRAM (Final) Moderate Polys No Bacteria Seen ISO (Final) Staphylococcus aureus Rare Growth +Confirmed Susceptibility ISOLATE: Staphylococcus aureus GREG (mcg/ml) CLINDAMYCIN (CC) <=0.5 Susceptible DAPTOMYCIN (DAP) <=1 Susceptible ERYTHROMYCIN (E) <=0.5 Susceptible OXACILLIN (OX) 0.5 Susceptible TETRACYCLINE (TE) <=0.5 Susceptible TRIMETH/SULFA (SXT) <=0.5/9.5 Susceptible VANCOMYCIN (VA) 1 Susceptible This result added by CJ on 11/10/2017 08:47. The previous result was: ISO (Final) Staphylococcus aureus Rare Growth ISOLATE: Staphylococcus aureus GREG (mcg/ml) CLINDAMYCIN (CC) <=0.5 Susceptible DAPTOMYCIN (DAP) <=1 Susceptible ERYTHROMYCIN (E) <=0.5 Susceptible OXACILLIN (OX) 0.5 Susceptible TETRACYCLINE (TE) <=0.5 Susceptible TRIMETH/SULFA (SXT) <=0.5/9.5 Susceptible VANCOMYCIN (VA) 1 Susceptible This result added by IF on 11/10/2017 08:41. The previous result was: ISO (Unreleased) No previously released data found. Normal [facility] Comment on above: Order Comment: #1 Ri ght Knee swab Performed By: #### 3 0343 ####[facility] [place] [address], [facility] C-Reactive Protein (HS)on Protein mass conc 74.31 mg/L Critically high 0.00-3.00 Th [facility] Comment on above: Result Comment: Resu lts confirmed ondilution. Relative Risk for Future Cardiovascular Event Low <1.00 Average 1.00 - 3.00 High >3.00 Performed By: #### P TT, PT ####[facility] Y[address] [place] GRAM STAIN PRIM SOURCEon INR Coag RelTime (Bld) Final report Normal The [facility] Comment on above: Performed By: #### P TT, PT ####[facility] Ymkvdrersz5[address] [place] Result 1 Comment Normal [facility] Comment on above: Result Comment: No w elio blood cells seen. Performed By: #### P TT, PT ####[facility] Klvlamobdp4150 [address] [place] Result 2 No organisms seen Normal [place] Comment on above: Performed By: #### P TT, PT ####[facility] Nyexjscnvi5455 [address] [place] POC GLUCOSE LABon 11-03-2017 Glucose mass conc 86 mg/dL Normal 70-100 [facility] Comment on above: Performed By: #### 8 [id number] ####[facility] CBC AUTO DIFFon 11-02-2017 Basophils Auto #/vol (Bld) 0.0 103/ul Normal 0.0-0.1 The [facility] Comment on above: Performed By: #### P TT, PT ####[facility] [address] [place] [address] [place] Basophils/100 WBC Auto (Bld) 0.5 % Normal 0.2-2.0 The [facility] Comment on above: Performed By: #### P TT, PT ####[facility] [address] [place] [address] [place]ne Eosinophils Auto #/vol (Bld) 0.3 103/ul Normal 0.0-0.7 The [facility] Comment on above: Performed By: #### P TT, PT ####[facility] [address] [place] [address] [place] Eosinophils/100 WBC Auto (Bld) 3.8 % Normal 0.9-7.0 The [facility] Comment on above: Performed By: #### P TT, PT ####[facility] [address] [place] [address] [place] Erythrocyte distribution width Auto Ratio (RBC) 13.4 % Normal 11.0-15.0 The [facility] Comment on above: Performed By: #### P TT, PT ####[facility] [address] [place] [address] [place] Hematocrit Auto Volume Fraction (Bld) 32.4 % Critically low 42.0-54.0 The [facility] Comment on above: Performed By: #### P TT, PT ####[facility] [address] [place] [address] [place]ne Hemoglobin mass conc (Bld) 10.2 g/dL Critically low 14.0-18.0 The [facility] Comment on above: Performed By: #### P TT, PT ####[facility] [address] [place] [address] D[place]ne IG # 0.05 10e3/ul Critically high 0.00-0.03 [place] Comment on above: Performed By: #### P TT, PT ####[facility] [address] [place] [address] D[place]ne IG % 0.6 % Critically high 0.0-0.5 [facility] Comment on above: Performed By: #### P TT, PT ####[facility] [address] [place] [address] [place]ne Lymphocytes Auto #/vol (Bld) 1.4 103/ul Normal 1.2-3.8 The [facility] Comment on above: Performed By: #### P TT, PT ####[facility] [address] [place] [address] D[place]ne Lymphocytes/100 WBC Auto (Bld) 16.8 % Critically low 20.5-60.0 [facility] Comment on above: Performed By: #### P TT, PT ####[facility] [address] [place] [address] [place] MANUAL DIFF REQ NO Normal [facility] Comment on above: Performed By: #### P TT, PT ####[facility] [address] [place] [address] D[place]ne MCH Auto Entitic mass (RBC) 28.1 pg Normal 25.9-34.0 [facility] Comment on above: Performed By: #### P TT, PT ####[facility] [address] [place] [address] Dianne MCHC Auto mass conc (RBC) 31.5 g/dL Normal 29.9-35.2 The [facility] Comment on above: Performed By: #### P TT, PT ####[facility] [address] [place] [address] [place]ne MCV Auto Entitic volume (RBC) 89.3 fL Normal 80.0-94.0 [facility] Comment on above: Performed By: #### P TT, PT ####[facility] [address], [place] [address]Gcvqlj [place] Monocytes Auto #/vol (Bld) 0.5 103/ul Normal 0.3-0.8 The [facility] Comment on above: Performed By: #### P TT, PT ####[facility] [address] [place] [address]Tfwsux [place] Monocytes/100 WBC Auto (Bld) 5.8 % Normal 1.7-12.0 The [facility] Comment on above: Performed By: #### P TT, PT ####[facility] [address] [place] [address]Cihnqf D[place]ne Neutrophils Auto #/vol (Bld) 6.1 103/ul Normal 1.4-6.5 The [facility] Comment on above: Performed By: #### P TT, PT ####[facility] [address] [place] [address]Zugmjw D[place]ne Neutrophils/100 WBC Auto (Bld) 72.5 % Normal 43.0-75.0 The [facility] Comment on above: Performed By: #### P TT, PT ####[facility] [address] [place] [address]Qrpzbn [place]ne Platelet mean volume Auto Entitic volume (Bld) 9.7 fL Normal 9.5-13.5 The [facility] Comment on above: Performed By: #### P TT, PT ####[facility] [address] [place] [address]Bfqlzd [place] Platelets Auto #/vol (Bld) 247 103/ul Normal 150-450 The [facility] Comment on above: Performed By: #### P TT, PT ####[facility] [address] [place] [id number] [place] RBC Auto #/vol (Bld) 3.63 106/ul Critically low 4.70-6.10 The [facility] Comment on above: Performed By: #### P TT, PT ####[facility] [address] [place] [address]Yjeqri [place]ne WBC Auto #/vol (Bld) 8.4 103/ul Normal 4.0-11.0 The [facility] Comment on above: Performed By: #### P TT, PT ####[facility] [address] [id number] Dean CBC COMPLETE BLOOD COUNTon 0 11-02-2017 Erythrocyte distribution width Auto Ratio (RBC) 13.2 % Normal 11.5-15.0 [facility] Comment on above: Order Comment: No: D o not add to previous draw Performed By: #### 5 0608, 65333 ####[facility] Hematocrit Auto Volume Fraction (Bld) 32.9 % Low 39.0-50.0 [facility] Comment on above: Order Comment: No: D o not add to previous draw Performed By: #### 5 06, 00398 ####[facility] Hemoglobin mass conc (Bld) 10.4 g/dL Low 13.0-17.0 [facility] Comment on above: Order Comment: No: D o not add to previous draw Performed By: #### 5 06, 34823 ####[facility] MCH Auto Entitic mass (RBC) 28.0 pg Normal 27.0-33.0 The [facility] Comment on above: Order Comment: No: D o not add to previous draw Performed By: #### 5 06, 04665 ####[facility] MCHC Auto mass conc (RBC) 31.6 g/dL Low 32.0-35.0 The [facility] Comment on above: Order Comment: No: D o not add to previous draw Performed By: #### 5 0608, 31449 ####[facility] MCV Auto Entitic volume (RBC) 88.7 fL Normal 82.0-98.0 The [facility] Comment on above: Order Comment: No: D o not add to previous draw Performed By: #### 5 0608, 60894 ####[facility] Nucleated RBC/100 WBC Ratio (Bld) 0 % Normal 0-0 The [facility] Comment on above: Order Comment: No: D o not add to previous draw Performed By: #### 5 607, 91164 ####[facility].[address] PLAT CNT 260 10*3/uL Normal 150-400 [facility] Comment on above: Order Comment: No: D o not add to previous draw Performed By: #### 5 06, 77404 ####[facility] [facility].[address] RBC Auto #/vol (Bld) 3.71 10*6/uL Low 4.20-5.70 Th e [facility] Comment on above: Order Comment: No: D o not add to previous draw Performed By: #### 5 607, 57730 ####[facility]3000 [facility].[address] WBC Auto #/vol (Bld) 7.99 10*3/uL Normal 4.00-10.60 Th e [facility] Comment on above: Order Comment: No: D o not add to previous draw Performed By: #### 5 607, 26046 ####[facility] COMP METABOLIC PANELon 11-02 Albumin mass conc 3.2 g/dL Low 3.5-5.7 The [facility] Comment on above: Order Comment: No: D o not add to previous draw Performed By: #### 0 0121 ####[facility] ALKALINE PHOSPH 48 IU/L Normal 34-104 The [facility] Comment on above: Order Comment: No: D o not add to previous draw Performed By: #### 0 0121 ####[facility] [place] [address], [facility] ALT enzyme act/vol 10 U/L Normal 7-52 The [facility] Comment on above: Order Comment: No: D o not add to previous draw Performed By: #### 0 0121 ####[facility] [place] [address], [facility] AST enzyme act/vol 17 U/L Normal 13-39 The [facility] Comment on above: Order Comment: No: D o not add to previous draw Performed By: #### 0 0121 ####[facility] [place] [address], [facility] Bilirubin mass conc 0.5 mg/dL Normal 0.3-1.0 The [facility] Comment on above: Order Comment: No: D o not add to previous draw Performed By: #### 0 0121 ####[facility] [place] [address], [facility] Calcium mass conc 9.0 mg/dL Normal 8.6-10.3 The [facility] Comment on above: Order Comment: No: D o not add to previous draw Performed By: #### 0 0121 ####[facility] [place] [address], [facility] Chloride molar conc 100 mmol/L Normal 98-107 The [facility] Comment on above: Order Comment: No: D o not add to previous draw Performed By: #### 0 0121 ####[facility] [place] [address], [facility] CO2 molar conc 31 mmol/L Normal 21-31 The [facility] Comment on above: Order Comment: No: D o not add to previous draw Performed By: #### 0 0121 ####[facility] [place] [address], [facility] Creatinine mass conc 0.84 mg/dL Normal 0.70-1.30 The [facility] Comment on above: Order Comment: No: D o not add to previous draw Performed By: #### 0 0121 ####[facility] [place] [address], [facility] [facility] GFR/1.73 sq M predicted among blacks MDRD vol rate/area (S/P/Bld) mL/min/{1.73_m2} Normal >60 [facility] Comment on above: Order Comment: No: D o not add to previous draw Performed By: #### 0 0121 ####[place] [address], [facility] GFR/1.73 sq M predicted among non-blacks MDRD vol rate/area (S/P/Bld) mL/min/{1.73_m2} Normal >60 [facility] Comment on above: Order Comment: No: D o not add to previous draw Performed By: #### 0 0121 ####[place] [address] [place] [address], [facility] Glucose mass conc 93 mg/dL Normal 70-100 [facility] Comment on above: Order Comment: No: D o not add to previous draw Performed By: #### 0 0121 ####[place] [address], [facility] Potassium molar conc 3.9 mmol/L Normal 3.5-5.1 [facility] Comment on above: Order Comment: No: D o not add to previous draw Performed By: #### 0 0121 ####[place] [place] [address], [facility] Protein mass conc 7.1 g/dL Normal 6.0-8.3 The [facility] Comment on above: Order Comment: No: D o not add to previous draw Performed By: #### 0 0121 ####[facility] [facility] [place] [address], [facility] Sodium molar conc 138 mmol/L Normal 136-145 [facility] Comment on above: Order Comment: No: D o not add to previous draw Performed By: #### 0 0121 ####[facility] [place] [address], [facility] Urea nitrogen mass conc 12 mg/dL Normal 7-25 The [facility] Comment on above: Order Comment: No: D o not add to previous draw Performed By: #### 0 0121 ####[facility] [facility] [place] [address], [facility] CRPon 11-02-2017 CRP mass conc 6.4 mg/dL Critically high <=1.0 [facility] Comment on above: Performed By: #### P TT, PT ####[facility] [address] [place], [place] [address]Awmxaf Dianne PROTHROMBIN TIMEon 8 INR Coag RelTime (PPP) 1.14 {INR} Normal 0.91-1.16 Th e [facility] Comment on above: Order Comment: No: D o not add to previous draw Result Comment: ACCC P RECOMMENDED INR FOR WARFARIN THERAPY CONDITION INRPROPHYLAXIS OF VENOUS THROMBOSIS 2-3(HIGH-RISK SURGERY)TREATMENT OF VENOUS THROMBOSIS 2-3TREATMENT OF PULMONARY EMBOLISM 2-3PREVENTION OF SYSTEMIC EMBOLISM: 2-3 ACUTE MYOCARDIAL INFARCTION TISSUE HEART VALVES VALVULAR HEART DISEASE ATRIAL FIBRILLATION RECURRENT SYSTEMIC EMBOLISMMECHANICAL HEART VALVE 2.5-3.5 FROM: ORAL ANTICOAGULANTS. MECHANISM OF ACTION, CLINICALEFFECTIVENESS, AND OPTIMAL THERAPEUTIC RANGE. [id number]. Performed By: #### 5 6101 ####[facility] [place] [address], [facility] Prothrombin time (PT) Coag time (PPP) 14.6 s Normal 12.3-14.8 The [facility] Comment on above: Order Comment: No: D o not add to previous draw Result Comment: ALL RESULTS MUST BE INTERPRETED WITH RESPECT TO BLOOD DRAWING ARTIFACTOR DILUTION ERROR OF ANTICOAGULANT AT THE TIME OF SAMPLING. Performed By: #### 5 6101 ####[facility] [place] [address], [facility] SED RATE WESTERGRENon 2017 SED RATE 108 mm/hr Critically high <=20 The [facility] Comment on above: Performed By: #### P TT, PT ####[facility] [address] [place] [id number] Dianne SEDRH METHOD AND NORMAL CH NHUNG 07/06/15. RESULTS ARE NOT AFFECTED BY HEMATOCRIT. Normal The [facility] Comment on above: Performed By: #### P TT, PT ####[facility] [address] [place], [place] [address]Jjubgw Dianne SEDIMENTATION RATEon 018 SED RATE 93 mm/hr High 0-10 The [facility] Comment on above: Order Comment: No: D o not add to previous draw Performed By: #### 5 0608, [id number] ####[facility] [place] [address], [facility] TYPE AND SCREENon 11-02-2017 ABO INTERPRETATION O Normal The [facility] Comment on above: Performed By: #### 6 2586 ####[facility] [place] [address], [facility] ANTIBODY SCREEN Negative Normal The [facility] Comment on above: Performed By: #### 6 2586 ####[facility] [facility].[address] RH INTERPRETATION Positive Normal The [facility] Comment on above: Performed By: #### 6 2586 ####[facility] [facility].[address] CBC AUTO DIFFon 11-01-2017 Basophils Auto #/vol (Bld) 0.1 103/ul Normal 0.0-0.1 The [facility] Comment on above: Performed By: #### P TT, PT ####[facility] [address] [place] [id number] Dianne Basophils/100 WBC Auto (Bld) 0.5 % Normal 0.2-2.0 The [facility] Comment on above: Performed By: #### P TT, PT ####[facility] [address] [place], [place] [id number] Dianne Eosinophils Auto #/vol (Bld) 0.3 103/ul Normal 0.0-0.7 The [facility] Comment on above: Performed By: #### P TT, PT ####[facility] D[address] [place], [place] [address]Gerken Dianne Eosinophils/100 WBC Auto (Bld) 3.2 % Normal 0.9-7.0 The [facility] Comment on above: Performed By: #### P TT, PT ####[facility] Rsv[address] [place], [place] [address]Gerken Dianne Erythrocyte distribution width Auto Ratio (RBC) 13.4 % Normal 11.0-15.0 The [facility] Comment on above: Performed By: #### P TT, PT ####[facility] Or[address] [place], [place] [id number] Dianne Hematocrit Auto Volume Fraction (Bld) 33.3 % Critically low 42.0-54.0 The [facility] Comment on above: Performed By: #### P TT, PT ####[facility] [address] [place], [place] [id number] Dianne Hemoglobin mass conc (Bld) 10.3 g/dL Critically low 14.0-18.0 The [facility] Comment on above: Performed By: #### P TT, PT ####[facility] Elaq[address]rw[address] Dianne IG # 0.06 10e3/ul Critically high 0.00-0.03 [place] Comment on above: Performed By: #### P TT, PT ####[facility] Offawuwolw[address] Dianne IG % 0.6 % Critically high 0.0-0.5 [facility] Comment on above: Performed By: #### P TT, PT ####[facility] P[address]am[address] Dianne Lymphocytes Auto #/vol (Bld) 1.6 103/ul Normal 1.2-3.8 [facility] Comment on above: Performed By: #### P TT, PT ####[facility] [address] [place] [address] Dianne Lymphocytes/100 WBC Auto (Bld) 16.4 % Critically low 20.5-60.0 [facility] Comment on above: Performed By: #### P TT, PT ####[facility] [address] [place] [address] Dianne MANUAL DIFF REQ NO Normal [facility] Comment on above: Performed By: #### P TT, PT ####[facility] [address]er[address] [place] [address] Dianne MCH Auto Entitic mass (RBC) 27.5 pg Normal 25.9-34.0 [facility] Comment on above: Performed By: #### P TT, PT ####[facility] Ed[address]tr[address] [place] [address] Dianne MCHC Auto mass conc (RBC) 30.9 g/dL Normal 29.9-35.2 [facility] Comment on above: Performed By: #### P TT, PT ####[facility] Ad[address]pr[address] [place] [address] Dianne MCV Auto Entitic volume (RBC) 88.8 fL Normal 80.0-94.0 The [facility] Comment on above: Performed By: #### P TT, PT ####[facility] [address] [place], [place] [id number] Dianne Monocytes Auto #/vol (Bld) 0.7 103/ul Normal 0.3-0.8 The [facility] Comment on above: Performed By: #### P TT, PT ####[facility] X[address]ex[address]ams[address] [place], [place] [id number] Dianne Monocytes/100 WBC Auto (Bld) 6.8 % Normal 1.7-12.0 The [facility] Comment on above: Performed By: #### P TT, PT ####[facility] [address]ms[address]ns[address] [place], [place] [address]Gerken Dianne Neutrophils Auto #/vol (Bld) 7.0 103/ul Critically high 1.4-6.5 The [facility] Comment on above: Performed By: #### P TT, PT ####[facility] [address] [place], [place] [address]Gerken Dianne Neutrophils/100 WBC Auto (Bld) 72.5 % Normal 43.0-75.0 The [facility] Comment on above: Performed By: #### P TT, PT ####[facility] Oktnourzps[address] [place], [place] [id number] Dianne Platelet mean volume Auto Entitic volume (Bld) 9.6 fL Normal 9.5-13.5 The [facility] Comment on above: Performed By: #### P TT, PT ####[facility] Yhdexph[address] [place], [place] [id number] Dianne Platelets Auto #/vol (Bld) 231 103/ul Normal 150-450 The [facility] Comment on above: Performed By: #### P TT, PT ####[facility] S[address]vyrvxwo[address] [place], [place] [id number] Dianne RBC Auto #/vol (Bld) 3.75 106/ul Critically low 4.70-6.10 The [facility] Comment on above: Performed By: #### P TT, PT ####[facility] [address] [place] [phone] Dianne WBC Auto #/vol (Bld) 9.6 103/ul Normal 4.0-11.0 The [facility] Comment on above: Performed By: #### P TT, PT ####[facility] Ow[address]ouzzxa[address] [place], [place] [id number] Dianne CRPon 11-01-2017 CRP mass conc 7.6 mg/dL Critically high <=1.0 [facility] Comment on above: Performed By: #### P TT, PT ####[facility] [address] [place] [address] Dianne SED RATE WESTERGRENon 2017 SED RATE 75 mm/hr Critically high <=20 The [facility] Comment on above: Performed By: #### P TT, PT ####[facility] [address] [place] [address] Dianne SEDRH METHOD AND NORMAL CH NHUNG 07/06/15. RESULTS ARE NOT AFFECTED BY HEMATOCRIT. Normal [facility] Comment on above: Performed By: #### P TT, PT ####[facility] [address] [place] [address] Dianne CBC AUTO DIFFon 10-31-2017 Basophils Auto #/vol (Bld) 0.0 103/ul Normal 0.0-0.1 [facility] Comment on above: Performed By: #### C BC ####[facility] [address] [place] [address] Dianne Basophils/100 WBC Auto (Bld) 0.4 % Normal 0.2-2.0 The [facility] Comment on above: Performed By: #### C BC ####[facility] [address]wfg[address] [place] [address] Dianne Eosinophils Auto #/vol (Bld) 0.2 103/ul Normal 0.0-0.7 The [facility] Comment on above: Performed By: #### C BC ####[facility] [address] [place] [address] Dianne Eosinophils/100 WBC Auto (Bld) 2.2 % Normal 0.9-7.0 [facility] Comment on above: Performed By: #### C BC ####[facility] [address]tvz[address] [place] [address] Dianne Erythrocyte distribution width Auto Ratio (RBC) 13.4 % Normal 11.0-15.0 [facility] Comment on above: Performed By: #### C BC ####[facility] [address]wandzn[address] [place] [address] Dianne Hematocrit Auto Volume Fraction (Bld) 33.7 % Critically low 42.0-54.0 [facility] Comment on above: Performed By: #### C BC ####[facility] [address]jz[address] [place] [address] Dianne Hemoglobin mass conc (Bld) 10.7 g/dL Critically low 14.0-18.0 [facility] Comment on above: Performed By: #### C BC ####[facility] [address] [place] [address] Dianne IG # 0.07 10e3/ul Critically high 0.00-0.03 [place] Comment on above: Performed By: #### C BC ####[facility] [address]ca[address] [place] [address] Dianne IG % 0.7 % Critically high 0.0-0.5 The [facility] Comment on above: Performed By: #### C BC ####[facility] [address] [place] [address] Dianne Lymphocytes Auto #/vol (Bld) 1.4 103/ul Normal 1.2-3.8 The [facility] Comment on above: Performed By: #### C BC ####[facility] [address]dxiych[address] [place] [address] Dianne Lymphocytes/100 WBC Auto (Bld) 13.9 % Critically low 20.5-60.0 The [facility] Comment on above: Performed By: #### C BC ####[facility] [address] [place], [place] [address] Dianne MANUAL DIFF REQ NO Normal The [facility] Comment on above: Performed By: #### C BC ####[facility] [address]ap[address] [place] [address] Dianne MCH Auto Entitic mass (RBC) 28.2 pg Normal 25.9-34.0 The [facility] Comment on above: Performed By: #### C BC ####[facility] [address]havvaf[address] [place] [address] Dianne MCHC Auto mass conc (RBC) 31.8 g/dL Normal 29.9-35.2 The [facility] Comment on above: Performed By: #### C BC ####[facility] [address]jmb[address] [place] [address] Dianne MCV Auto Entitic volume (RBC) 88.9 fL Normal 80.0-94.0 The [facility] Comment on above: Performed By: #### C BC ####[facility] [address]mv[address] [place] [address] Dianne Monocytes Auto #/vol (Bld) 0.6 103/ul Normal 0.3-0.8 The [facility] Comment on above: Performed By: #### C BC ####[facility] D[address]mfgmouk[address] [place] [address] Dianne Monocytes/100 WBC Auto (Bld) 5.8 % Normal 1.7-12.0 The [facility] Comment on above: Performed By: #### C BC ####[facility] [address]vch[address] [place] [address] Dianne Neutrophils Auto #/vol (Bld) 7.9 103/ul Critically high 1.4-6.5 The [facility] Comment on above: Performed By: #### C BC ####[facility] [address]tr[address]qx[address] [place] [address] Dianne Neutrophils/100 WBC Auto (Bld) 77.0 % Critically high 43.0-75.0 The [facility] Comment on above: Performed By: #### C BC ####[facility] [address] [place] [address]Akzdvj Karen Platelet mean volume Auto Entitic volume (Bld) 9.7 fL Normal 9.5-13.5 The [facility] Comment on above: Performed By: #### C BC ####[facility] [address]ixv[address] [place], [place] [id number] Dianne Platelets Auto #/vol (Bld) 227 103/ul Normal 150-450 The [facility] Comment on above: Performed By: #### C BC ####[facility] W[address]omsymotj[address] [place], [place] [id number] Dianne RBC Auto #/vol (Bld) 3.79 106/ul Critically low 4.70-6.10 The [facility] Comment on above: Performed By: #### C BC ####[facility] Omgpwuqifw[address] [place], [place] [id number] Dianne WBC Auto #/vol (Bld) 10.3 103/ul Normal 4.0-11.0 The [facility] Comment on above: Performed By: #### C BC ####[facility] [address]msasmvjk[address] [place], [place] [id number] Dianne CRPon 10-31-2017 CRP mass conc 7.4 mg/dL Critically high <=1.0 [facility] Comment on above: Performed By: #### C RP ####[facility] [address] [place] [address]Cdgfmf Dianne SED RATE WESTERGRENon 2017 SED RATE 96 mm/hr Critically high <=20 The [facility] Comment on above: Performed By: #### S EDR ####[facility] [address]ls[address] [place], [place] [id number] Dianne SEDRH METHOD AND NORMAL CH NHUNG 07/06/15. RESULTS ARE NOT AFFECTED BY HEMATOCRIT. Normal The [facility] Comment on above: Performed By: #### S EDR ####[facility] [address] [place] [address]Patnmx Dianne VANCOMYCIN TROUGHon 11-01-19 18 VANCOMYCIN TROUGH 11.3 ug/ml Normal 5.0-20.0 [place] Comment on above: Performed By: #### V ANCT ####[facility] X[address]xm[address] [place] [address] Dianne CBC AUTO DIFFon 10-30-2017 Basophils Auto #/vol (Bld) 0.1 103/ul Normal 0.0-0.1 [facility] Comment on above: Performed By: #### C BC ####[facility] [address]uswlq[address] [place] [address] Dianne Basophils/100 WBC Auto (Bld) 0.5 % Normal 0.2-2.0 The [facility] Comment on above: Performed By: #### C BC ####[facility] Mrbtypb[address] [place] [address] Dianne Eosinophils Auto #/vol (Bld) 0.2 103/ul Normal 0.0-0.7 The [facility] Comment on above: Performed By: #### C BC ####[facility] [address]izwjfjta[address] [place] [address] Dianne Eosinophils/100 WBC Auto (Bld) 1.5 % Normal 0.9-7.0 The [facility] Comment on above: Performed By: #### C BC ####[facility] [address]wxkplyvg[address] [place] [address] Dianne Erythrocyte distribution width Auto Ratio (RBC) 13.6 % Normal 11.0-15.0 The [facility] Comment on above: Performed By: #### C BC ####[facility] Z[address]jb[address]ks[address] [place] [address] Dianne Hematocrit Auto Volume Fraction (Bld) 37.4 % Critically low 42.0-54.0 The [facility] Comment on above: Performed By: #### C BC ####[facility] Ll[address]dzxqn[address] [place] [address] Dianne Hemoglobin mass conc (Bld) 11.5 g/dL Critically low 14.0-18.0 The [facility] Comment on above: Performed By: #### C BC ####[facility] [address] [place] [address] Dianne IG # 0.09 10e3/ul Critically high 0.00-0.03 [place] Comment on above: Performed By: #### C BC ####[facility] [address] [place] [id number] Dean IG % 0.9 % Critically high 0.0-0.5 [facility] Comment on above: Performed By: #### C BC ####[facility] Txtiesmuse9849 [address] Dianne Lymphocytes Auto #/vol (Bld) 1.8 103/ul Normal 1.2-3.8 The [facility] Comment on above: Performed By: #### C BC ####[facility] [address]ihwasef[address] [place] [address] Dianne Lymphocytes/100 WBC Auto (Bld) 18.1 % Critically low 20.5-60.0 [facility] Comment on above: Performed By: #### C BC ####[facility] [address] [place] [address] Dianne MANUAL DIFF REQ NO Normal [facility] Comment on above: Performed By: #### C BC ####[facility] S[address]epgbac[address] [place] [address] Dianne MCH Auto Entitic mass (RBC) 27.8 pg Normal 25.9-34.0 [facility] Comment on above: Performed By: #### C BC ####[facility] [address]uhc[address] [place] [address] Dianne MCHC Auto mass conc (RBC) 30.7 g/dL Normal 29.9-35.2 The [facility] Comment on above: Performed By: #### C BC ####[facility] [address]qby[address]xbut[address] [place] [address] Dianne MCV Auto Entitic volume (RBC) 90.3 fL Normal 80.0-94.0 [facility] Comment on above: Performed By: #### C BC ####[facility] B[address]fcldiwur[address] [place] [address] Dianne Monocytes Auto #/vol (Bld) 0.7 103/ul Normal 0.3-0.8 The [facility] Comment on above: Performed By: #### C BC ####[facility] Xvbaioctkn[address] [place], [place] [id number] Dianne Monocytes/100 WBC Auto (Bld) 6.6 % Normal 1.7-12.0 The [facility] Comment on above: Performed By: #### C BC ####[facility] Armodedncr[address] [place], [place] [address]Gerken Dianne Neutrophils Auto #/vol (Bld) 7.3 103/ul Critically high 1.4-6.5 The [facility] Comment on above: Performed By: #### C BC ####[facility] Higoszkzrq[address] [place], [place] [id number] Dianne Neutrophils/100 WBC Auto (Bld) 72.4 % Normal 43.0-75.0 The [facility] Comment on above: Performed By: #### C BC ####[facility] Bzktvrmofl[address] [place], [place] [address]Gerken Dianne Platelet mean volume Auto Entitic volume (Bld) 9.3 fL Critically low 9.5-13.5 The [facility] Comment on above: Performed By: #### C BC ####[facility] Gliffasgcc[address] [place], [place] [address]Gerken Dianne Platelets Auto #/vol (Bld) 263 103/ul Normal 150-450 The [facility] Comment on above: Performed By: #### C BC ####[facility] Nyhbpntocn[address] [place], [place] [address]Gerken Dianne RBC Auto #/vol (Bld) 4.14 106/ul Critically low 4.70-6.10 The [facility] Comment on above: Performed By: #### C BC ####[facility] L[address]dhafeiaw[address] [place], [place] [address]Gerken Dianne WBC Auto #/vol (Bld) 10.1 103/ul Normal 4.0-11.0 The [facility] Comment on above: Performed By: #### C BC ####[facility] L[address]sdzkvgb[address] [place], [place] [address]Gerken Dianne Basophils Auto #/vol (Bld) 0.0 103/ul Normal 0.0-0.1 The [facility] Comment on above: Performed By: #### C BC ####[facility] Vwzaowqlnp[address] [place], [place] [address]Gerken Dianne Basophils/100 WBC Auto (Bld) 0.4 % Normal 0.2-2.0 The [facility] Comment on above: Performed By: #### C BC ####[facility] [address]jxdizh[address] [place], [place] [address]Gerken Dianne Eosinophils Auto #/vol (Bld) 0.2 103/ul Normal 0.0-0.7 The [facility] Comment on above: Performed By: #### C BC ####[facility] Dwn[address]qqzv[address] [place], [place] [address]Gerken Dianne Eosinophils/100 WBC Auto (Bld) 1.5 % Normal 0.9-7.0 [facility] Comment on above: Performed By: #### C BC ####[facility] [address] [place] [address] Dianne Erythrocyte distribution width Auto Ratio (RBC) 13.6 % Normal 11.0-15.0 [facility] Comment on above: Performed By: #### C BC ####[facility] [address] [place], [place] [id number] Dianne Hematocrit Auto Volume Fraction (Bld) 37.2 % Critically low 42.0-54.0 [facility] Comment on above: Performed By: #### C BC ####[facility] [address] [place], [place] [id number] Dianne Hemoglobin mass conc (Bld) 11.7 g/dL Critically low 14.0-18.0 [facility] Comment on above: Performed By: #### C BC ####[facility] [address] [place], [place] [id number] Dianne IG # 0.08 10e3/ul Critically high 0.00-0.03 The [facility] Comment on above: Performed By: #### C BC ####[facility] [address] [place], [place] [id number] Dianne IG % 0.8 % Critically high 0.0-0.5 The [facility] Comment on above: Performed By: #### C BC ####[facility] [address] [place] [address] 00460Mhdvis Dianne Lymphocytes Auto #/vol (Bld) 1.7 103/ul Normal 1.2-3.8 [facility] Comment on above: Performed By: #### C BC ####[facility] [address] [place], [place] [id number] Dianne Lymphocytes/100 WBC Auto (Bld) 17.0 % Critically low 20.5-60.0 [facility] Comment on above: Performed By: #### C BC ####[facility] [address] [place], [place] [id number] Dianne MANUAL DIFF REQ NO Normal The [facility] Comment on above: Performed By: #### C BC ####[facility] [address] [place], [place] [id number] Dianne MCH Auto Entitic mass (RBC) 28.2 pg Normal 25.9-34.0 [facility] Comment on above: Performed By: #### C BC ####[facility] [address] [place], [place] [id number] Dianne MCHC Auto mass conc (RBC) 31.5 g/dL Normal 29.9-35.2 [facility] Comment on above: Performed By: #### C BC ####[facility] [address] [place], [place] [id number] Dianne MCV Auto Entitic volume (RBC) 89.6 fL Normal 80.0-94.0 [facility] Comment on above: Performed By: #### C BC ####[facility] [address] [place], [place] [id number] Dianne Monocytes Auto #/vol (Bld) 0.7 103/ul Normal 0.3-0.8 [facility] Comment on above: Performed By: #### C BC ####[facility] [address] [place], [place] [address]Reshhs Dianne Monocytes/100 WBC Auto (Bld) 7.0 % Normal 1.7-12.0 [facility] Comment on above: Performed By: #### C BC ####[facility] [address] [place] [address] [id number] Dianne Neutrophils Auto #/vol (Bld) 7.5 103/ul Critically high 1.4-6.5 [facility] Comment on above: Performed By: #### C BC ####[facility] [address] [place] [address] [id number] Dianne Neutrophils/100 WBC Auto (Bld) 73.3 % Normal 43.0-75.0 [facility] Comment on above: Performed By: #### C BC ####[facility] [address] [place] [address] 318[address]Etvltm Dianne Platelet mean volume Auto Entitic volume (Bld) 9.9 fL Normal 9.5-13.5 [facility] Comment on above: Performed By: #### C BC ####[facility] [address] [place] [address] 65[address]Ozruxm Dianne Platelets Auto #/vol (Bld) 288 103/ul Normal 150-450 [facility] Comment on above: Performed By: #### C BC ####[facility] [address] [place] [id number] Dianne RBC Auto #/vol (Bld) 4.15 106/ul Critically low 4.70-6.10 [facility] Comment on above: Performed By: #### C BC ####[facility] [address] [place] [address] 23317Zjttrw Dianne WBC Auto #/vol (Bld) 10.2 103/ul Normal 4.0-11.0 [facility] Comment on above: Performed By: #### C BC ####[facility] [address] [place] [address] 56[address]Wfiytc Dianne CRPon 10-30-2017 CRP mass conc 6.9 mg/dL Critically high <=1.0 [facility] Comment on above: Performed By: #### C RP ####[facility] [address] [place] [id number] Dean SED RATE WESTERGRENon 2017 SED RATE 94 mm/hr Critically high <=20 [facility] Comment on above: Performed By: #### S EDR ####[facility] [address] [place] [address] Dianne SEDRH METHOD AND NORMAL CH NHUNG 07/06/15. RESULTS ARE NOT AFFECTED BY HEMATOCRIT. Normal [facility] Comment on above: Performed By: #### S EDR ####[facility] [address] [place] [address] Dianne CULTURE ANAEROBICon 10-30-19 18 CULTURE ANAEROBIC Culture Observations : FINAL, SCANNED RESULTS TO FOLLOW IN HPF Culture Observations: CALLED/FAXED TO DR TAMAYO/MENDOZA 11/03/2017 1030 [facility] Comment on above: Performed By: #### P TT, PT ####[facility] [address] [place] [address] Dianne CULTURE OTHERon 10-29-2017 CULTURE OTHER Culture Observations : Prelim results given to Dr Tamayo 11-01-17 @1310 -[facility] Culture Observations: Final, scanned results to follow in [facility] Comment on above: Performed By: #### P TT, PT ####[facility] [address] [place] [address] Dianne PROTIMEon 10-28-2017 INR Coag RelTime (Bld) SEE BELOW Normal [facility] Comment on above: Result Comment: MOOKIE RED INR: 2.0 - 3.0 CONDITIONS NOT LISTED BELOW 2.5 - 3.5 FOR PROSTHETIC HEART VALVE REPLACEMENT 2.5 - 3.5 RECURRENT THROMBOSIS Performed By: #### P TT, PT ####[facility] [address] [place] [address] Dianne INR Coag RelTime (PPP) 1.10 {INR} Normal [facility] Comment on above: Performed By: #### P TT, PT ####[facility] [address] [place], [place] [address]FvpliuMayur Dean Prothrombin time (PT) Coag time (PPP) 11.3 s Normal 9.0-11.6 [facility] Comment on above: Performed By: #### P TT, PT ####[facility] [address] [place], [place] [address]CvasqtMayur Dean PT NORMAL PLEASE NOTE: NORMAL RANGE CHANGE 02-16-2014 DUE TO REAGENT LOT CHANGE Normal [facility] Comment on above: Performed By: #### P TT, PT ####[facility] [address] [place], [place] [address]SyzkpkMayur Dean PTTon 10-28-2017 aPTT Coag time (Bld) 30.1 s Normal 22.3-36.2 [facility] Comment on above: Performed By: #### P TT, PT ####[facility] [address] [place], [place] [address]UtcdmhMayur Dean aPTT Coag time (Bld) PLEASE NOTE: NORMAL RANGE CHANGE 04-25-2015 DUE TO REAGENT LOT CHANGE Normal [facility] Comment on above: Performed By: #### P TT, PT ####[facility] [address] [place], [place] [address]CjdtaoMayur Dean Vital Signs Date Time Vital Sign Value Performing Clinician Facility 07-19-2024 14:53-0500 Body temperature 97.3 [degF] [facility] 07-19-2024 14:53-0500 Body weight 181.43 kg [facility] 07-19-2024 14:53-0500 Diastolic blood pressure 94 mm[Hg] [facility] 07-19-2024 14:53-0500 Heart rate 76 /min [facility] 07-19-2024 14:53-0500 Respiratory rate 24 /min [facility] 07-19-2024 14:53-0500 Systolic blood pressure 172 mm[Hg] [facility] 07-11-2024 15:26-0500 Body height 182.88 cm Bakari White DO Work Phone: [facility] 07-11-2024 15:26-0500 Body mass index (BMI) [Ratio] 54.5 kg/m2 Bakari White DO Work Phone: [facility] 07-11-2024 15:26-0500 Body temperature 101.2 [degF] Bakari White DO Work Phone: [facility] 07-11-2024 15:26-0500 Body weight 182.34 kg Bakari White DO Work Phone: [facility] 07-11-2024 15:26-0500 Diastolic blood pressure 83 mm[Hg] Bakari White DO Work Phone: [facility] 07-11-2024 15:26-0500 Heart rate 93 /min Bakari White DO Work Phone: [facility] 07-11-2024 15:26-0500 Respiratory rate 18 /min Bakari White DO Work Phone: [facility] 07-11-2024 15:26-0500 SaO2% (BldA) [Mass fraction] 98 % Bakari White DO Work Phone: [facility] 07-11-2024 15:26-0500 Systolic blood pressure 138 mm[Hg] Bakari White DO Work Phone: [facility] 05-27-2024 08:38-0500 Body height 182.88 cm Bakari White DO Work Phone: [facility] 05-27-2024 08:38-0500 Body mass index (BMI) [Ratio] 54.1 kg/m2 Bakari Whtie DO Work Phone: [facility] 05-27-2024 08:38-0500 Body weight 180.98 kg Bakari White DO Work Phone: [facility] 05-27-2024 08:38-0500 Diastolic blood pressure 92 mm[Hg] Bakari Branchi DO Work Phone: [facility] 05-27-2024 08:38-0500 Heart rate 70 /min Bakari Branchi DO Work Phone: [facility] 05-27-2024 08:38-0500 SaO2% (BldA) [Mass fraction] 96 % Bakari Branchi DO Work Phone: [facility] 05-27-2024 08:38-0500 Systolic blood pressure 158 mm[Hg] Bakari Branchi DO Work Phone: [facility] 04-19-2024 14:19-0500 Diastolic blood pressure 94 mm[Hg] Bakari Branchi DO Work Phone: [facility] 04-19-2024 14:19-0500 Systolic blood pressure 162 mm[Hg] Bakari Branchi DO Work Phone: [facility] 04-19-2024 14:03-0500 Body height 182.88 cm Bakari Branchi DO Work Phone: [facility] 04-19-2024 14:03-0500 Body mass index (BMI) [Ratio] 53 kg/m2 Bakari Branchi DO Work Phone: [facility] 04-19-2024 14:03-0500 Body weight 177.35 kg Bakari Branchi DO Work Phone: [facility] 04-19-2024 14:03-0500 Heart rate 80 /min Bakari Branchi DO Work Phone: [facility] 04-19-2024 14:03-0500 Respiratory rate 20 /min Bakari Branchi DO Work Phone: [facility] 04-19-2024 14:03-0500 SaO2% (BldA) [Mass fraction] 99 % Bakari Branchi DO Work Phone: [facility] 04-13-2024 12:26-0500 Body height 182.9 cm Darlene Brito PA Work Phone: [facility] 04-13-2024 12:26-0500 Diastolic blood pressure 84 mm[Hg] Darlene Brito PA Work Phone: [facility] 04-13-2024 12:26-0500 Heart rate 88 /min Darlene Brito PA Work Phone: [facility] 04-13-2024 12:26-0500 Respiratory rate 16 /min Darlene Brito PA Work Phone: [facility] 04-13-2024 12:26-0500 SaO2% (BldA) [Mass fraction] 96 % Darlene Brito PA Work Phone: [facility] 04-13-2024 12:26-0500 Systolic blood pressure 142 mm[Hg] Darlene Brito PA Work Phone: [facility] 03-02-2024 08:43-0400 Body height 182.9 cm Mario Judynagel MANAGER EMPLOYMENT Work Phone: [facility] 03-02-2024 08:43-0400 Body mass index (BMI) [Ratio] 53.16 kg/m2 Mario Windnagel MANAGER EMPLOYMENT Work Phone: [facility] 03-02-2024 08:43-0400 Body weight 177.81 kg Mario Windnagel MANAGER EMPLOYMENT Work Phone: [facility] 03-02-2024 08:43-0400 Diastolic blood pressure 88 mm[Hg] Mario Windnagel MANAGER EMPLOYMENT Work Phone: [facility] 03-02-2024 08:43-0400 Heart rate 73 /min Mario Windnagel MANAGER EMPLOYMENT Work Phone: [facility] 03-02-2024 08:43-0400 Systolic blood pressure 153 mm[Hg] Mario Windnagel MANAGER EMPLOYMENT Work Phone: [facility] 05-19-2023 14:00-0500 Body height 182.88 cm Bakari White Other [employer] Other 05-19-2023 14:00-0500 Body mass index (BMI) [Ratio] 52.48 kg/m2 Bakari White Other [employer] Other 05-19-2023 14:00-0500 Body weight 175.54 kg Bakari White Other [employer] Other 05-19-2023 14:00-0500 Diastolic blood pressure 86 mm[Hg] Bakari White Other [employer] Other 05-19-2023 14:00-0500 Respiratory rate 18 /min Bakari White Other [employer] Other 05-19-2023 14:00-0500 SaO2% (BldA) [Mass fraction] 100 % Bakari White Other [employer] Other 05-19-2023 14:00-0500 Systolic blood pressure 130 mm[Hg] Bakari White Other [employer] Other 02-24-2023 09:30-0400 Body height 182.88 cm Bakari White Other [employer] Other 02-24-2023 09:30-0400 Body mass index (BMI) [Ratio] 50.99 kg/m2 Bakari White Other [employer] Other 02-24-2023 09:30-0400 Body weight 170.55 kg Bakari White Other [employer] Other 02-24-2023 09:30-0400 Respiratory rate 18 /min Bakari White Other [employer] Other 02-24-2023 09:30-0400 SaO2% (BldA) [Mass fraction] 99 % Bakari White Other [employer] Other 11-21-2022 10:00-0400 Body height 182.88 cm Bakari White Other [employer] Other 11-21-2022 10:00-0400 Body mass index (BMI) [Ratio] 52.21 kg/m2 Bakari White Other [employer] Other 11-21-2022 10:00-0400 Body temperature 98.6 [degF] Bakari White Other [employer] Other 11-21-2022 10:00-0400 Body weight 174.64 kg Bakari White Other [employer] Other 11-21-2022 10:00-0400 Diastolic blood pressure 86 mm[Hg] Bakari White Other [employer] Other 11-21-2022 10:00-0400 Respiratory rate 20 /min Baakri White Other [employer] Other 11-21-2022 10:00-0400 SaO2% (BldA) [Mass fraction] 100 % Bakari White Other [employer] Other 11-21-2022 10:00-0400 Systolic blood pressure 130 mm[Hg] Bakari White Other [employer] Other 06-13-2022 17:54-0500 Respiratory rate 20 /min Ajay Galvan MD Work Phone: [employer] 06-13-2022 07:15-0500 Body temperature 96.8 [degF] Ajay Galvan MD Work Phone: [employer] 06-13-2022 07:15-0500 Diastolic blood pressure 82 mm[Hg] Ajay Galvan MD Work Phone: [employer] 06-13-2022 07:15-0500 Heart rate 71 /min Ajay Galvan MD Work Phone: [employer] 06-13-2022 07:15-0500 SaO2% (BldA) [Mass fraction] 96 % Ajay Galvan MD Work Phone: [employer] 06-13-2022 07:15-0500 Systolic blood pressure 125 mm[Hg] Ajay Galvan MD Work Phone: [employer] 06-13-2022 04:52-0500 Body mass index (BMI) [Ratio] 50.26 kg/m2 Ajay Galvan MD Work Phone: [employer] 06-13-2022 04:52-0500 Body weight 168.1 kg Ajay Galvan MD Work Phone: [employer] Comment on above: 1st weight obtained on floor 06-12-2022 09:00-0500 Body height 182.9 cm Ajay Galvan MD Work Phone: [employer] 06-09-2022 10:43-0500 Body height 182.9 cm Ajay Galvan MD Work Phone: [employer] 06-09-2022 10:43-0500 Body mass index (BMI) [Ratio] 49.91 kg/m2 Ajay Galvan MD Work Phone: [employer] 06-09-2022 10:43-0500 Body temperature 97.11 [degF] Ajay Galvan MD Work Phone: [employer] 06-09-2022 10:43-0500 Body weight 166.92 kg Ajay Galvan MD Work Phone: [employer] 06-09-2022 10:43-0500 Diastolic blood pressure 81 mm[Hg] Ajay Galvan MD Work Phone: [employer] 06-09-2022 10:43-0500 Heart rate 70 /min Ajay Galvan MD Work Phone: [employer] 06-09-2022 10:43-0500 Respiratory rate 18 /min Ajay Galvan MD Work Phone: [employer] 06-09-2022 10:43-0500 SaO2% (BldA) [Mass fraction] 97 % Ajay Galvan MD Work Phone: [employer] 06-09-2022 10:43-0500 Systolic blood pressure 178 mm[Hg] Ajay Galvan MD Work Phone: [employer] 05-19-2022 14:00-0500 Body height 182.88 cm Bakari White Other [employer] Other 05-19-2022 14:00-0500 Body mass index (BMI) [Ratio] 50.45 kg/m2 Bakari White Other [employer] Other 05-19-2022 14:00-0500 Body weight 168.74 kg Bakari White Other [employer] Other 05-19-2022 14:00-0500 Diastolic blood pressure 91 mm[Hg] Bakari Linton [employer] Other 05-19-2022 14:00-0500 Respiratory rate 20 /min Bakari White Other [employer] Other 05-19-2022 14:00-0500 SaO2% (BldA) [Mass fraction] 100 % Bakari White Other [employer] Other 05-19-2022 14:00-0500 Systolic blood pressure 152 mm[Hg] Bakari Whiet Other [employer] Other 05-12-2022 14:21-0500 Body height 182.9 cm Ajay Galvan MD Work Phone: [employer] 05-12-2022 14:21-0500 Body mass index (BMI) [Ratio] 49.31 kg/m2 Ajay Galvan MD Work Phone: [employer] 05-12-2022 14:21-0500 Body temperature 96.8 [degF] Ajay Galvan MD Work Phone: [employer] 05-12-2022 14:21-0500 Body weight 164.93 kg Ajay Galvan MD Work Phone: [employer] 05-12-2022 14:21-0500 Diastolic blood pressure 86 mm[Hg] Ajay Galvan MD Work Phone: [employer] 05-12-2022 14:21-0500 Heart rate 74 /min Ajay Galvan MD Work Phone: [employer] 05-12-2022 14:21-0500 Respiratory rate 20 /min Ajay Galvan MD Work Phone: [employer] 05-12-2022 14:21-0500 SaO2% (BldA) [Mass fraction] 97 % Ajay Galvan MD Work Phone: [facility] 05-12-2022 14:21-0500 Systolic blood pressure 133 mm[Hg] Ajay Galvan MD Work Phone: [facility] 01-29-2022 15:56-0400 Diastolic blood pressure 92 mm[Hg] DO Bakari Branchi Work Phone: [facility] 01-29-2022 15:56-0400 Heart rate 63 /min DO Bakari Branchi Work Phone: [facility] 01-29-2022 15:56-0400 Respiratory rate 18 /min DO Bakari Branchi Work Phone: [facility] 01-29-2022 15:56-0400 SaO2% (BldA) [Mass fraction] 96 % DO Bakari Branchi Work Phone: [facility] 01-29-2022 15:56-0400 Systolic blood pressure 165 mm[Hg] DO Bakari White Work Phone: [facility] 01-29-2022 11:10-0400 Body height 182.88 cm DO Bakari Branchi Work Phone: [facility] 01-29-2022 11:10-0400 Body temperature 98.8 [degF] DO Bakari Branchi Work Phone: [facility] 01-29-2022 11:10-0400 Body weight 170 kg DO Bakari Damoncki Work Phone: [facility] 01-08-2022 15:30-0400 Body height 182.88 cm Bakari Damonjeremíasmarkos Other [facility] [employer] Other 01-08-2022 15:30-0400 Diastolic blood pressure 84 mm[Hg] Bakari White Other [employer] Other 01-08-2022 15:30-0400 Respiratory rate 20 /min Bakari White Other [employer] Other 01-08-2022 15:30-0400 SaO2% (BldA) [Mass fraction] 98 % Bakari White Other [employer] Other 01-08-2022 15:30-0400 Systolic blood pressure 132 mm[Hg] Bakari White Other [employer] Other Encounters Encounter Date Encounter Type Care Provider Facility Start: 07-19-2024 End: 07-19-2024 ambulatory [facility] Work Phone: Start: 07-19-2024 End: 07-19-2024 Patient encounter procedure [facility] Work Phone: Start: 07-11-2024 End: 07-11-2024 ambulatory Bakarinagi White DO Work Phone: [facility] Work Phone: Start: 07-11-2024 End: 07-11-2024 Patient encounter procedure Bakari White DO Work Phone: [facility] Work Phone: Start: 07-11-2024 End: 07-20-2024 Telephone encounter Dusty Patterson PT Work Phone: [facility] Comment on above: re: PT status and au th given; FU; Final Start: 07-06-2024 End: 07-06-2024 Bamboo flowsheet Louisa Guy GAS OPERATOR [facility] Start: 07-06-2024 End: 07-06-2024 Bamboo flowsheet Louisa Guy GAS OPERATOR [facility] Start: 07-06-2024 End: 07-06-2024 ambulatory Louisa Guy GAS OPERATOR [facility] Comment on above: Radiculopathy, lumba r region (Primary Dx); Difficulty walking; Weakness of both lower extremities Start: 06-29-2024 End: 06-29-2024 Bamboo flowsghazala Patterson PT Work Phone: [facility] Start: 06-29-2024 End: 06-29-2024 Bamboo flowsheet Dusty Patterson PT Work Phone: [facility] Start: 06-29-2024 End: 06-29-2024 ambulatory Dusty Patterson PT Work Phone: [facility] Comment on above: Radiculopathy, lumba r region (Primary Dx); Difficulty walking; Weakness of both lower extremities Start: 06-08-2024 End: 06-08-2024 ambulatory Apolonia Coleman MD Facility: [facility] Start: 05-27-2024 End: 05-27-2024 Patient encounter procedure Bakari White DO Work Phone: [facility] Work Phone: Start: 05-16-2024 End: 05-16-2024 ambulatory Apolonia Coleman MD Facility: [facility] Start: 04-19-2024 End: 04-19-2024 ambulatory Bakari White DO Work Phone: [facility] Work Phone: Start: 04-19-2024 End: 04-19-2024 Encounter for general adult medical examination without abnormal findings Bakari White DO Work Phone: [facility] Start: 04-19-2024 End: 04-19-2024 Patient encounter procedure Bakari White DO Work Phone: [facility] Work Phone: Start: 04-13-2024 End: 04-13-2024 Bamboo flowsheet Darlene Brito PA Work Phone: [facility] Start: 04-13-2024 End: 04-13-2024 Bamboo flowsheet Darlene Brito PA Work Phone: [facility] Start: 04-13-2024 End: 04-13-2024 Office outpatient visit 25 minutes Darlene JOHNSON Work Phone: [facility] Comment on above: Polyneuropathy (Prim jerry Dx); Painful legs and moving toes of left foot; Other specified peripheral vascular diseases ([facility]/HCC) Start: 04-13-2024 End: 04-13-2024 ambulatory DARLENE BRITO Not Available Start: 04-13-2024 End: 04-13-2024 Patient encounter procedure Bakari Wellsperfecto DO Work Phone: [facility] [place] Work Phone: Start: 04-13-2024 End: 04-13-2024 ambulatory Bakari White DO Work Phone: [facility] Work Phone: Start: 03-02-2024 End: 03-02-2024 Bamboo flowsheet Mario C Windnagel MANAGER EMPLOYMENT Work Phone: [facility] [address] Start: 03-02-2024 End: 03-02-2024 Bamboo flowsheet Mario C Windnagel MANAGER EMPLOYMENT Work Phone: [facility] [address] Start: 03-02-2024 End: 03-02-2024 Office outpatient visit 25 minutes Mario C Windnagel MANAGER EMPLOYMENT Work Phone: [facility] [address] Comment on above: Polyneuropathy (Prim jerry Dx) Start: 03-02-2024 End: 03-02-2024 ambulatory MARIO C WINDNAGEL Not Available Start: 02-24-2024 End: 02-24-2024 Emergency department patient visit BAKARI WHITE [facility] Start: 06-10-2023 End: 06-10-2023 ambulatory Bakari Je Other [employer] Other Start: 06-10-2023 Telephone encounter Bakari [facility] Start: 05-29-2023 End: 05-30-2023 Emergency department patient visit [facility] Start: 05-29-2023 End: 05-30-2023 Emergency department patient visit [facility] Start: 05-29-2023 End: 05-29-2023 Emergency department patient visit [facility] Start: 05-19-2023 End: 05-19-2023 ambulatory Bakari Wellsjohannmarkos Other [employer] Other Start: 05-19-2023 Office outpatient vi sit 25 minutes Bakari [facility] Start: 03-16-2023 End: 03-17-2023 [facility] Start: 02-24-2023 End: 02-24-2023 ambulatory Bakari Je Other [employer] Other Start: 02-24-2023 Encounter for other preprocedural examination Bakari [facility] Start: 02-24-2023 Office outpatient vi sit 25 minutes Bakari White [facility] Start: 02-18-2023 End: 02-23-2023 ambulatory [facility]AN [facility] Start: 11-24-2022 End: 11-24-2022 ambulatory Bakari Je Other [employer] Other Start: 11-24-2022 Telephone encounter Bakari [facility] Start: 11-21-2022 End: 11-21-2022 ambulatory Bakari White Other [employer] Other Start: 11-21-2022 Encounter for genera l adult medical examination without abnormal findings [facility] Start: 11-21-2022 Periodic preventive med est patient 40-64yrs Bakari [facility] Start: 06-12-2022 End: 06-13-2022 ambulatory AJAY [facility] Start: 06-12-2022 End: 06-13-2022 Subsequent hospital visit by physician Ajay Galvan MD Work Phone: [facility] Comment on above: S/P TKR (total knee replacement) using cement, left (Primary Dx) Start: 06-09-2022 End: 06-09-2022 ambulatory AJAY Driver [facility] Start: 06-09-2022 End: 06-09-2022 Subsequent hospital visit by physician Ajay Galvan MD Work Phone: [facility] Start: 06-04-2022 End: 06-05-2022 [facility] Start: 06-04-2022 End: 06-05-2022 Encounter for other preprocedural examination BETTLES FIELD Bulmaro GALVAN [facility] Start: 06-04-2022 End: 06-04-2022 Subsequent hospital visit by physician Juany Pena PT [facility] Comment on above: Arrived Start: 05-22-2022 End: 05-22-2022 ambulatory Bakari Damonjeremíasmarkos Other [facility] Other Start: 05-22-2022 Telephone encounter Bakari [facility] Start: 05-19-2022 End: 05-19-2022 ambulatory Bakari Wellsperfecto Other [facility] Other Start: 05-19-2022 Encounter for other preprocedural examination [facility] Start: 05-19-2022 Office outpatient vi sit 25 minutes [facility] Start: 05-12-2022 End: 05-17-2022 ambulatory AJAY GALVAN [facility] Start: 05-12-2022 End: 05-16-2022 Subsequent hospital visit by physician Ajay Galvan MD Work Phone: [facility] Start: 04-11-2022 End: 04-11-2022 ambulatory Bakari White Other [facility] Other Start: 04-11-2022 Telephone encounter [facility] Start: 01-30-2022 End: 01-30-2022 ambulatory Bakari White Other [facility] Other Start: 01-30-2022 Telephone encounter Bakari [facility] Start: 01-29-2022 End: 01-29-2022 Emergency department patient visit DO Bakari White Work Phone: [facility] Start: 01-27-2022 End: 01-27-2022 ambulatory Bakari White Other [facility] Other Start: 01-27-2022 Telephone encounter Bakari Branch i [facility] Start: 01-24-2022 End: 01-24-2022 Patient encounter procedure DO Bakari White Work Phone: [facility] [place] Start: 01-23-2022 End: 01-23-2022 ambulatory Bakari White Other [facility] Other Start: 01-23-2022 Telephone encounter [facility] Start: 01-13-2022 End: 01-13-2022 ambulatory Bakari White Other [facility] Other Start: 01-13-2022 Telephone encounter Bakari Branch i [facility] Start: 01-08-2022 End: 01-08-2022 ambulatory Bakari White Other [facility] Other Start: 01-08-2022 Office outpatient vi sit 15 minutes Bakari White [facility] Start: 11-25-2021 End: 11-25-2021 ambulatory Bakari White Other [facility] Other Start: 11-25-2021 Telephone encounter Bakari Branch i [facility] [employer] Start: 10-02-2021 End: 10-02-2021 ambulatory Bakari White Other [facility] Other Start: 10-02-2021 Telephone encounter Bakari Branch i [facility] [facility] Start: 09-30-2021 End: 09-30-2021 ambulatory Bakari White Other [facility] Other Start: 09-30-2021 Telephone encounter [facility] Start: 07-29-2021 End: 07-29-2021 ambulatory Bakari White Other [facility] Other Start: 07-29-2021 Telephone encounter Bakari Branch i [employer] Start: 06-03-2021 End: 06-03-2021 ambulatory Bakari White Other [facility] Other Start: 06-03-2021 Office outpatient vi sit 15 minutes Bakari [facility] Start: 03-12-2018 End: 03-13-2018 Patient encounter [facility] Facility: Start: 02-17-2018 End: 02-18-2018 Patient encounter ALEK MITTAL Facility:[facility] Start: 11-20-2017 End: 11-21-2017 Patient encounter ALEK MITTAL Facility:[facility] Start: 11-19-2017 Encounter for other specified special examinations ALEK MITTAL [facility] Start: 11-19-2017 End: 11-20-2017 Patient encounter MEG HACKETT Facility:[facility] Start: 11-02-2017 End: 11-12-2017 Evaluation and management of inpatient ALEK MITTAL Facility:[facility] Start: 11-02-2017 Encounter for preprocedural cardiovascular examination [facility] Start: 11-02-2017 Encounter for preprocedural laboratory examination [facility] Start: 10-30-2017 End: 11-02-2017 Patient encounter [facility] Facility: Start: 10-28-2017 End: 10-29-2017 Patient encounter [facility] Facility: Start: 10-28-2017 Pre-procedure evalua tion check Bakari White Other [employer] Other Encounter for other specified special examinations ALEK MITTAL [facility] Encounter for preprocedural laboratory examination [facility] Procedures Date Procedure Procedure Detail Performing Clinician Start: 04-19-2024 X-ray of left foot Ken celia White DO Work Phone: Start: 06-13-2022 Blood count hemoglobin Ajay Galvan MD Work Phone: Start: 05-12-2022 Antibody screen Ajay Galvan MD Work Phone: Start: 05-12-2022 Ecg routine ecg w/le ast 12 lds i&r only Ajay Galvan MD Work Phone: Start: 05-12-2022 Iadna s aureus methi cillin resist amp probe tq Ajay Galvan MD Work Phone: Start: 05-12-2022 Basic metabolic pane l calcium total Ajay Galvan MD Work Phone: Start: 05-12-2022 Blood typing serologic abo Ajay Galvan MD Work Phone: Start: 01-29-2022 CT of abdomen and pe lvis without contrast DO Bakari White Work Phone: Start: 01-24-2022 X-ray of lumbar spin e, six views including bending views DO Bakari White Work Phone: Start: 11-20-2017 Anes integ extremiti es ant trunk & perineum nos ABEL BOYER Start: 11-20-2017 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) ALEK EBRAHEIM Start: 11-11-2017 DRAINAGE OF RIGHT KN EE JOINT, PERCUTANEOUS APPROACH, DIAGN ALEK EBRAHEIM Start: 11-11-2017 EXCISION OF RIGHT LO WER LEG MUSCLE, OPEN APPROACH ALEK EBRAHEIM Start: 11-05-2017 EXTRACTION OF RIGHT LOWER LEG MUSCLE, OPEN APPROACH ALEK EBRAHEIM Start: 11-03-2017 DRAINAGE OF RIGHT KN EE JOINT, PERCUTANEOUS APPROACH, DIAGN ALEK EBRAHEIM Start: 11-03-2017 EXCISION OF RIGHT KN EE BURSA AND LIGAMENT, OPEN APPROACH ALEK EBRAHEIM Start: 11-03-2017 EXCISION OF RIGHT KN EE TENDON, OPEN APPROACH ALEK EBRAHEIM Plan of Treatment Date Care Activity Detail Author Start: 07-05-2024 End: 07-05-2024 ambulatory 07/05/2024 3:00 PM EST Treatment [facility] [address] [facility] [address] [place] [address] Louisa Guy, LILLIANA [facility] Start: 06-29-2024 End: 06-29-2024 ambulatory 06/29/2024 1:00 PM EST Evaluation [facility] [address] [place] [address] Dusty Patterson, PT [address] [place] [address] Arrived [facility] Comment on above: Arrived Start: 04-13-2024 End: 04-13-2026 US.doppler Lower extremity artery - left Vascular US lower extremity arterial duplex left with TATO Vascular Ultrasound Routine Painful legs and moving toes of left foot Other specified peripheral vascular diseases (CMS/HCC) Expected: 04/13/2024 (Approximate), Expires: 04/13/2026 [facility] Work Phone: Comment on above: Expected: 04/13/2024 (Approximate), Expires: 04/13/2026 Start: 03-02-2024 End: 03-02-2024 Patient encounter procedure 03/02/2024 8:40 AM EDT Office Visit [facility] [address] [facility] [address] [place] [address] Mario Mensah, MANAGER EMPLOYMENT [address] [place] [address] Arrived [facility] Comment on above: Arrived Start: 06-12-2022 End: 06-12-2022 Admission to same day surgery center 06/12/2022 Surgery IP Unit Ajay Galvan MD [address] [place] [phone] KNEE TOTAL ARTHROPLASTY [facility] Comment on above: KNEE TOTAL ARTHROPLA STY Start: 06-12-2022 End: 06-12-2022 Arthrp kne condyle&platu medial&lat compartments KNEE TOTAL ARTHROPLASTY Arthritis of left knee 06/12/2022 10:50 AM [facility] Start: 06-12-2022 Subsequent hospital visit by physician 06/12/2022 Hospital Encounter IP Unit Ajay Galvan MD [address] [place] [phone] [facility] Start: 06-09-2022 End: 06-09-2022 Admission to same day surgery center 06/09/2022 Surgery IP Unit Ajay Galvan MD [address] [place] [phone] KNEE TOTAL ARTHROPLASTY [facility] Comment on above: KNEE TOTAL ARTHROPLA STY Start: 06-09-2022 End: 06-09-2022 Arthrp kne condyle&platu medial&lat compartments KNEE TOTAL ARTHROPLASTY Osteoarthritis of left knee, unspecified osteoarthritis type 06/09/2022 11:00 AM [facility] Start: 06-09-2022 Subsequent hospital visit by physician 06/09/2022 Hospital Encounter IP Unit Ajay Galvan MD [address] [place] [address] [facility] Start: 06-04-2022 End: 06-04-2022 Patient encounter procedure 06/04/2022 Appointment Physical Therapy Juany Pena, PT [facility] Start: 01-29-2022 CT of abdomen and pelvis without contrast CT abdomen pelvis wo [facility] Start: 01-29-2022 End: 01-29-2022 Emergency department patient visit Departed Emergency [facility] Start: 12-30-2021 Influenza vaccination Flu vaccine (# 1) [facility] Start: 2011 Shingles vaccine (1 of 2) Shingles vaccine (1 of 2) [facility] Start: 2006 Screening for malign ant neoplasm of colon [facility] Start: 2001 Lipid panel Lipids [facility] Start: 01-13-1980 DTaP/Tdap/Td vaccine (1 - Tdap) DTaP/Tdap/Td vaccine (1 - Tdap) [facility] Start: 1979 Hepatitis C screening Hepatitis C sc reen [facility] Start: 01-13-1976 HIV screening HIV screen [facility] Start: 1973 Depression Screen Depression Screen [facility] Start: 1961 COVID-19 Vaccine (#1) COVID-19 Vacci ne (#1) [facility] Oxygen therapy [Mini muscogee Data Set] Initiate Oxygen Therapy Protocol Respiratory Care Routine As Needed until discontinued starting 06/12/2022 [facility] Work Phone: Comment on above: As Needed until disc ontinued starting 06/12/2022 Patient Education Low Back Pain ED Kidney Stone, Adult ED [facility] Work Phone: Patient referral [facility] Work Phone: XR Foot - left GE 3 Views [facility] Immunizations Immunization Date Immunization Notes Care Provider Juan Miguel barkley NEGATED: Highlighted row has not occurred!09-02-2018 influenza, seasonal, injectable Patient Objection Bakari White Other [employer] Other Payers Date Payer Category Payer Self-pay [id number] 2022 [facility] er Subscriber Plan / Payer (Effective 2022-Present) Name: Júnior Rowland Relation to Subscriber: Self Name: Júnior Rowland Payer ID: Not on file Type: Not on file Address: [place] [id number] 2022 Unknown [id number] 2013 Unknown [id number] 1961 Unknown [id number] 2.16.840.1.664003.3.579.2 .593 1961 Unknown [id number] 2.16.840.1.870325.3.579.2 .593 1961 Unknown [id number] 2.16.840.1.817547.3.579.2 .593 1961 Unknown [id number] 2.16.840.1.543546.3.579.2 .173 1961 Unknown [id number] 2.16.840.1.837718.3.579.2 .173 1961 Unknown [id number] 2.16.840.1.713247.3.579.2 .173 1961 Unknown [id number] 2.16.840.1.007249.3.579.2 .173 1961 Unknown [id number] 2.16.840.1.401951.3.579.2 .173 1961 Unknown [id number] 2.16.840.1.143349.3.579.2 .173 1961 Unknown [id number] 2.16.840.1.762562.3.579.2 .1286 1961 Unknown [id number] 2.16.840.1.822720.3.579.2 .1286 1961 Unknown [id number] 2.16.840.1.119404.3.579.2 .1286 1961 Unknown [id number] 2.16.840.1.257466.3.579.2 .1286 1961 Unknown [id number] 2.16.840.1.269426.3.579.2 .1286 1961 Unknown [id number] 2.16.840.1.380142.3.579.2 .196 1961 Unknown [id number] 2.16.840.1.639344.3.579.2 .196 1961 Unknown [id number] 2.16.840.1.097445.3.579.2 .1259 1961 Unknown [id number] 2.16.840.1.980295.3.579.2 .1259 1961 Unknown [id number] 2.16.840.1.399082.3.579.2 .1259 1961 Unknown [id number] 2.16.840.1.170226.3.579.2 .1259 1959 Unknown [id number] Unknown [id number] 2.16.840.1.008080.3.579.2 .531 Unknown [id number] 2.16.840.1.177548.3.579.2 .531 Social History Date Type Detail Facility Tobacco smoking status NHIS Unknown if ever smoked [facility] Start: 1960 Sex Assigned At Male F [facility] Start: 03-02-2024 End: 04-13-2024 Sex Assigned At [facility] [employer] Other Start: 01-29-2022 End: 03-02-2024 Tobacco smoking status NHIS Never smoked tobacco (finding) [facility] Start: 05-12-2022 End: 03-02-2024 Tobacco use and exposure Smokeless tobacco non-user [employer] Phone: Start: 05-12-2022 End: 06-12-2022 Alcohol intake Current drinker of alcohol (finding) [employer] Phone: Start: 05-12-2022 Alcohol Comment [facility] [employer] Phone: Start: 1960 Sex Assigned At Not on file [employer] Phone: Start: 05-02-2022 End: 06-12-2022 Exposure to SARS-CoV-2 (event) Not sure [employer] Phone: Start: 03-02-2024 End: 04-13-2024 History of Social function [facility] Start: 04-14-2024 End: 07-19-2024 Sex Male (finding) [facility] Medical Equipment Procedure Code Equipment Code Equipment Origin al Text Equipment Identifier Dates Psn Mc Ve Asf L 12mm 8-11 Ef - [id number] Start: 06-12-2022 Goals Date Patient Goal Desired Activity /State Clinical Notes 01-08-2022 to 07-20-2024 Telephone Encounter - Tamika Schaefer - 07/20/2024 12:42 PM ESTTelephone Encounter - Tamika Schaefer - 07/20/2024 12:42 PM ESTTelephone Encounter - Tamika Schaefer - 07/18/2024 12:37 PM EST Note Date & Type Note Facility 07-20-2024 Telephone encounter Note Form atting of this note might be different from the original. With 2 attempts and not able to contact today, I am unable to check status and offer to schedule more PT. [facility] 07-20-2024 Miscellaneous Notes Formattin g of this note might be different from the original. With 2 attempts and not able to contact today, I am unable to check status and offer to schedule more PT. Tried to contact but there was no ring-in on phone call; tried 3x's. Off HIPAA, I called and she said she will inform him to call back. Contacted re: last PT was on 07/06, Eval was 06/29, and thru auth he has 4 more PT's allowed up to 08/27/24. He said he is currently sick; so I advised to atleast look out a week and schedule. He said he has to look at work schedule and w/ fu, and would contact after that. I told him, if no hear back by 07/14, I'll call back. documented in this encounter [facility] 07-18-2024 Telephone encounter Note Form atting of this note might be different from the original. Tried to contact but there was no ring-in on phone call; tried 3x's. Off HIPAA, I called and she said she will inform him to call back. [facility] 02-10-2025 Telephone encounter Note Form atting of this note might be different from the original. Contacted re: last PT was on 07/06, Eval was 06/29, and thru auth he has 4 more PT's allowed up to 08/27/24. He said he is currently sick; so I advised to atleast look out a week and schedule. He said he has to look at work schedule and w/ fu, and would contact after that. I told him, if no hear back by 07/14, I'll call back. [facility] 06-29-2024 History of Presen t illness Narrative Physical Therapy Evaluation Visit Patient Name: Júnior Rowland Today's Date: 06/29/2024 Encounter Diagnoses Name Primary? Radiculopathy, lumbar region Yes Difficulty walking Weakness of both lower extremities Visit number: 1 Timed Code Treatment Minutes: 60 minutes Total Treatment Time: 60 minutes Time In: 1240 Time Out: 1340 History: Pt. Presents to PT with c/c of bilateral LE weakness. summer 2023, pt. Stated having severe left lower leg and foot pain. Had EMG consistent with neuropathy. 3 weeks ago pt. Had injection to lumbar spine via pain management which really helped to decrease his pain. Pt. Reports due to several months of pain which lead to sedentary lifestyle and reports he is now having increased LE muscle weakness limiting his functional mobility. Precautions: bilateral TKA Subjective Pain: 08/08 Objective: PT Evaluation (06/29/24) LE ROM: grossly WFL Flexibility: bilateral moderate calf and hamstring muscle tightness Strength: right LE grossly 4-/5, Left LE grossly 4-/5, core 4-/5, Functional mobility: moderate use of bilateral UE with sit to stand transfers Gait: ambulate with SPC Treatment: PT evaluation (20 minutes) Education: HEP education with demonstration, Educated on Eval Findings and POC Manual Therapy: Passive ROM, Joint mobilization, Soft Tissue Mobilization, Myofascial Release, Muscle Energy Technique, Neural Mobilization, Myofascial Cupping, Dry Needling, IASTM, and Scar mobilization Therapeutic Exercise: (20 minutes) exercises in grid; Strength, Endurance, Flexibility, ROM, HEP, Neural Mobilization, Power, and Core Stability; Nutep 10 mintues Therapeutic Activity: (10 minutes) Exercises to improve dynamic activities, functional tasks, functional mobility to return to prior activity level Neuromuscular re-education: Balance Training, Muscle Facilitation, Dynamic Stability, Core Stabilization, and Blood Flow Restriction Training (BFRT) Modalities: Heat, Ice, Electrical Stimulation, Ultrasound, Cervical Mechanical Traction, Lumbar Mechanical Traction, Iontophoresis, and Fluidotherapy Assessment: Pt. Has participated in 1 PT session with start of POC on 06/29 for bilateral LE weakness and core weakness. Pt. Will benefit from skilled PT services. Outcome Measure: 33/80 LEFS Short Term Goal: To be met in 2 weeks Goal 1: Pt to be instructed in home exercise program. [employer] In[employer] Goals: To be met in 10 weeks Goal 1: Pt to report independence and compliance with home program. Goal 2: Pt. Will report of 0/10 left foot pain while walking/standing to help improve his quality of life. Goal 3: Pt. Will demonstrate normal bilateral LE muscle flexibility to help decrease pain and improve his functional mobility with daily tasks. Goal 4: Pt. Will demonstrate 5/5 right LE strength to allow him to walk without SPC to return to PLOF. Goal 5: Pt. Will demonstrate 5/5 left LE strength to allow him to walk without SPC to return to PLOF and improve his quality of life. Goal 6: Pt. Will demonstrate 5/5 core strength to allow him to walk/stand for long periods of time to help improve his quality of life. Pt will benefit from skilled PT for 1-3x/week from 06/29/24 to 09/07/24 to address the above impairments. I hereby deem this POC medically necessary. Please sign below. Date: documented in this encounter [facility] 05-27-2024 Evaluation note Diagnosis Onset Date Resolution BPH (benign prostatic hyperplasia) acute May 27, 2 024 8:35am Morbid (severe) obesity due to excess calories acute May 27, 2 024 8:35am Influenza A acute July 3:06pm [facility] Work Phone: 1(255) 521-966111-19-2024 Evaluation note* Diagnosis Onset Date Resolution Status Admit Date BPH (benign prostatic hyperplasia) acute April 19, 2 024 1:49pm Mixed hyperlipidemia acute [facility] 2023 1:49pm Morbid (severe) obesity due to excess calories acute April 1:49pm COTY (obstructive sleep apnea) acute April 19, 2024 1:49pm Other iron deficiency anemias acute April 19, 2024 1:49pm Screening for colon cancer noneactiv e April 19, 2024 1:49pm Encounter for wellness examination noneactive April 19 024 1:49pm Left foot pain noneactive April 012023 1:49pm [facility] Work Phone: 1(893) 248-758011-19-2024 Evaluation note* Diagnosis Onset Date Resolution Status Admit Date BPH (benign prostatic hyperplasia) acute April 19, 2 024 1:49pm Mixed hyperlipidemia acute [facility] 2023 1:49pm Morbid (severe) obesity due to excess calories acute April 1:49pm COTY (obstructive sleep apnea) acute April 19, 2024 1:49pm Other iron deficiency anemias acute April 19, 2024 1:49pm Screening for colon cancer noneactiv e April 19, 2024 1:49pm Encounter for wellness examination noneactive April 19, 2 024 1:49pm Left foot pain noneactive April 012023 1:49pm BPH (benign prostatic hyperplasia) acute May 27, 2 024 8:35am Morbid (severe) obesity due to excess calories acute May 8:35am [facility] Work Phone: 1(174) 499-481011-13-2024 History of Present illness Narrative* ELIZABETH Reinoso - 04/13/2024 12:40 PM EST Subjective Júnior Rowland is a 64 y.o. year old male Chief Complaint Patient presents with Numbness Past Medical History: Diagnosis Date Cervical spine tumor Kidney stone Past Surgical History: Procedure Laterality Date CT ANGIOGRAM HEART CORONARY 05/29/2023 CT ANGIOGRAM TAVR 05/29/2023 TONSILLECTOMY TOTAL KNEE ARTHROPLASTY Family History Problem Relation Name Age of Onset Cancer Mother Social History Tobacco Use Smoking status: Never Smokeless tobacco: Never Substance Use Topics Alcohol use: Not on file Medication Documentation Review Audit Reviewed by Kathy Benedict MA (Certified Hand Therapist) on 04/13/24 at 1233 Medication Order Taking? Sig Documenting Provider Last Dose Status DULoxetine (Cymbalta) [address] capsule [id number] Take 1 capsule (30 mg) by mouth in the morning and 1 capsule (30 mg) before bedtime. Do not crush or chew.. Mario Mensah NP Active HPI HPI NEUROPATHY -changed gabapentin to Cymbalta at last visit -reports he has not seen any improvement -states his symptoms are actually worse -pain is located in left foot and is more intense -left foot is bright red and swollen -nail on great toe has discoloration -toes are very sensitive to touch -numbness and tingling has increased -admits to imbalance due to pain -ambulates with cane -denies any recent falls ROS Review of Systems Constitutional: Negative. Respiratory: Negative. Cardiovascular: Negative. Gastrointestinal: Negative. Musculoskeletal: Positive for arthralgias and gait problem. Neurological: Positive for numbness. Objective Visit Vitals BP 142/84 Pulse 88 Resp 16 Ht 6' SpO2 96% BMI 53.16 kg/m Smoking Status Never BSA 3.01 m GENERAL Apical RRR, no murmur Neurological Exam Mental Status Awake, alert and oriented to person, place and time. Recent and remote memory are intact. Speech isnormal. Language is fluent with no aphasia. Attention and concentration are normal. Fund of knowledge is appropriate for level of education. Cranial Nerves CN II: Visual acuity is normal. Visual dutta full to confrontation. CN III, IV, : Extraocular movements intact bilaterally. Normal lids and orbits bilaterally. Pupils equal round and reactive to light bilaterally. CN V: Facial sensation is normal. CN VII: Full and symmetric facial movement. CN VIII: Hearing is normal. CN XI: Shoulder shrug strength is normal. Sensory Light touch is normal in upper and lower extremities. Temperature is normal in upper and lower extremities. Vibration abnormality: Decreased below the knee and absent at the ankle and great toe bilaterally. Proprioception is absent. Coordination Right: [id number] normal. Rapid alternating movement normal.Left: Mgtikg-[id number]-[id number] normal. Rapid alternating movement normal. Gait Unsteady, ambulates with a cane, uses arms to get out of the chair, right foot turned out slightly. Motor Examination RUE Strength deltoid, biceps, triceps, wrist extensors, wrist extensors, wrist flexor, roll forming supervisor strength 5/5. LUE Strength deltoid, biceps, triceps, wrist extensors, wrist extensors, wrist flexor, roll forming supervisor strength 5/5. RLE Strength illopsoas, quadriceps, tibialis anterior, and gastrocnemius strength 5/5. LLE Strength illopsoas, quadriceps, tibialis anterior, and gastrocnemius strength 5/5. Tone Normal tone x4 extremities. 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 EMG showed sensory polyneuropathy. I do not think the EMG finding explain his left distal lower extremity symptoms. I suspect he has a L4/5 and/or L5/S1 radiculopathy based on his symptoms and location of his symptoms. He had MRI of lumbar spine as noted below. He is having increase in left lower extremity pain with increase in foot pain specifically, affecting his ambulation. He has associated erythema on the dorsal aspect of his left foot. He will be seeing his PCP soon. He has had no benefit with cymbalta. Gabapentin was weaned, as it was ineffective. EVALUATION EMG of BLE showed bilateral sensory polyneuropathy - 01/2023 MRI lumbar spine in March 20, 2023 showed anterolisthesis of L4 on 5 measuring 2 mm. No acute fracture identified. Disc desiccation and anterior endplate spurring throughout the lumbar spine. Mild disc space narrowing at T12-L1. Hemangioma at L3 vertebral body on the right measuring 1.5 cm. Minimal central stenosis at L4-5. B12, TSH, folate-normal Diagnoses and all orders for this visit: Polyneuropathy Painful legs and moving toes of left foot - Vascular US lower extremity arterial duplex left with TATO; Future Other specified peripheral vascular diseases (CMS/HCC) - Vascular US lower extremity arterial duplex left with TATO; Future PLAN 1. Patient can continue cymbalta 30mg PO BID for neuropathic pain 2. Trial Lyrica 50mg PO BID for neuropathic pain 3. OARRS reviewed 4. I will order an TATO to assess for vascular abnormality or PAD that may be contributing to patient's symptoms 5. Discussed possible SE of medications 6. Continue with fall precautions and healthy diet and weight loss 7. Can try magnesium foot spray of MagnLife cream for neuropathic pain 8. I will see him back in 6-8 weeks or sooner if needed documented in this [id number] Evaluation note* Encounter Date Diagnosis Assessment Notes Treatment Notes Treatment Clinical Notes May, Morbid (severe) obesity due to excess calories (ICD-10 - E66.01) He has again started to gain weight following his left knee replacement (he was able to lose significant weight with diet alone leading up to the surgery). I've strongly encouraged him to get back on track with his diet. I've again given him information on both Saxenda and Wegovy for weight loss _ _ he will look into cost and call for a prescription if it is affordable. May, Body mass index [BMI ] 50.0-59.9, adult (ICD-10 - Z68.43) See above. May, Mixed hyperlipidemia (ICD-10 - E78.2) Strongly encouraged to work on weight loss. Will continue to monitor. May, Obstructive sleep apnea (adult) (pediatric) (ICD-10 - G47.33) Weight loss strongly encouraged (see above). Continue with CPAP. May, Fatty liver (ICD-10 - K76.0) Weight loss strongly encouraged (see above). May, Other iron deficienc y anemia (ICD-10 - D50.8) H&H stable on recent preoperative labs. Will continue to monitor. May, Neuropathic pain (ICD-10 - M79.2) LLE, likely from combination of neuropathy and lumbar radiculopathy. EMG and MRI findings reviewed today with patient. He was recently started on gabapentin by his neurologist and is planning for dose adjustments in the near future. He will notify me if I can be of any further assistance. May, Lower extremity fany a (ICD-10 - R60.0) Will have him start a once daily dose of lasix with dose adjustments pending his progress. Labs to monitor potassium. Stop the medication and notify me immediately of any SEs. May, Screening for prostate cancer (ICD-10 - Z12.5) [facility] Other 09-26-2023 Evaluation note* Encounter Date Diagnosis Assessment Notes Treatment Notes Treatment Clinical Notes Jan, Preoperative examination (ICD-10 - Z01.818) Mr. Rowland is a 63 yo male with COTY (on CPAP), hyperlipidemia, fatty liver, and morbid obesity. He has struggled much of his life with weight, including now. He has no history of HTN, DM-II, or CAD. He reports no CP or dyspnea out of proportion to his level of exertion. He reports allergy to Keflex. No allergy to latex or adhesives. Patient denies any prior complications to general anesthesia. He had a recent CBC and CMP that were essentially normal, including fasting sugar of 85. He just had an EKG showing borderline sinus bradycardia and 1st degree AV block, stable when compared to EKG from 05/2022. With all of this in mind, patient is considered to be moderate risk to undergo and elective procedure at this time, with his biggest risk factor being his weight. He is aware of the risks associated with his morbid obesity and in fact, he is aware of all risks, benefits, possible adverse outcomes, and alternative treatment options. He wishes to go forward with surgery at this time. [facility] Other 06-23-2023 Evaluation note* Encounter Date Diagnosis Assessment Notes Treatment Notes Treatment Clinical Notes Oct, Wellness examination (ICD-10 - Z00.00) Patient's weight remains a major concern. He has again started to gain weight following his left knee replacement (he was able to lose significant weight with diet alone leading up to the surgery). We've again discussed strategy for weight loss (see below). I will hold on labs, as he just had routine labs prior to his knee replacement and will have labs drawn again prior to a planned R TKA (assuming he can keep his weight down). Oct, Morbid (severe) obesity due to excess calories (ICD-10 - E66.01) He has again started to gain weight following his left knee replacement (he was able to lose significant weight with diet alone leading up to the surgery). I've strongly encouraged him to get back on track with his diet. I've given him information on both Saxenda and Wegovy for weight loss _ _ he will look into cost and call for a prescription if it is affordable. Oct, Body mass index [BMI ] 50.0-59.9, adult (ICD-10 - Z68.43) See above. Oct, Mixed hyperlipidemia (ICD-10 - E78.2) Will hold on new labs for now (see above). Oct, Obstructive sleep apnea (adult) (pediatric) (ICD-10 - G47.33) Weight loss strongly encouraged (see above). Continue with CPAP. Oct, Fatty liver (ICD-10 - K76.0) Weight loss strongly encouraged (see above). Oct, Other iron deficienc y anemia (ICD-10 - D50.8) H&H stable on preoperative labs. Will continue to monitor. [facility] Other 01-13-2023 History of Present illness Narrative* Nicky Álvarez RN - 06/13/2022 7:45 PM EST Patient wheelchair out to private vehicle with . Belongings in hands. Discharge paperwork gone over by Laura SILVER * Kathi Jimenez RN - 06/13/2022 6:55 PM EST Screen Printing Inspector faxed discharge information to [facility] @ * Kathi Jimenez RN - 06/13/2022 6:42 PM EST Screen Printing Inspector reviewed discharge instructions with patient. Instructed on bathing with CHG soap when allowed to shower and what signs/symptoms of infection to watch for and who to call. Patient verbalized understanding. Denies questions. Copy of discharge instructions given to patient. * Tanesha Fall RN - 06/13/2022 6:11 PM EST IV and drain removed per orders. Tolerated well. Had 50ml blood in drain. Dressing applied to knee.PRN pain medication given. * Ajay Galvan MD - 06/13/2022 5:30 PM EST Progress Note Subjective: Post-Operative Day: 1 Status Post left Total Knee Arthroplasty Systemic or Specific Complaints:No Complaints Objective: Patient Vitals for the past 24 hrs: BP Temp Temp src Pulse Resp SpO2 Weight 06/13/22 0956 -- -- -- -- 20 -- -- 06/13/22 0926 -- -- -- -- 20 -- -- 06/13/22 0715 125/82 96.8 F (36 C) Temporal 71 18 96 % -- 06/13/22 0452 -- -- -- -- -- -- (!) 370 lb 9.5 oz (168.1 kg) 06/13/22 045 135/77 -- -- 64 -- 97 % -- 06/13/22 0120 120/80 98.3 F (36.8 C) Oral 67 18 96 % -- 06/12/22 2220 129/82 -- -- 66 -- 96 % -- 06/12/22 1910 131/70 97.3 F (36.3 C) Temporal 71 18 96 % -- 06/12/22 1745 125/81 (!) 96.6 F (35.9 C) Temporal 70 18 97 % -- General: alert, appears stated age, and cooperative Wound: Wound clean and dry no evidence of infection. Motion: Painless Range of Motion DVT Exam: No evidence of DVT seen on physical exam. Knee swollen but thigh soft to palpation. Moving foot and ankle. Good distal pulses. Data Review CBC: Lab Results Component Value Date/Time WBC 9.4 05/12/2022 02:38 PM RBC 4.68 05/12/2022 02:38 PM HGB 11.0 06/13/2022 05:40 AM HCT 33.7 06/13/2022 05:40 AM PLT 240 05/12/2022 02:38 PM Assessment: Status Post left Total Knee Arthroplasty. Doing well postoperatively. Plan: 1: Discharge today, Return to Clinic: 2 weeks : 2: Continue Deep venous thrombosis prophylaxis 3: Continue physical therapy 4: Continue Pain Control * Tanesha Fall RN - 06/13/2022 1:[address] Galvan will be here to see pt in about 1.5 hrs. Pt updated * Tanesha Fall RN - 06/13/2022 1:18 PM EST Attempted to get a hold of Dr. Galvan, left a message. * Tanesha Fall RN - 06/13/2022 12:17 PM EST Left message for Dr. Galvan to see if he is ready to D/C pt. * Karmen Rogers OT - 06/13/2022 11:36 AM EST Occupational Therapy Facility/Department: [facility] Occupational Therapy Initial Assessment Name: Júnior Rowland : 1960 Date of Service: 06/13/2022 Discharge Recommendations: Continue to assess pending progress, Home with Home health OT Patient Diagnosis(es): There were no encounter diagnoses. Past Medical History: has no past medical history on file. Past Surgical History: has a past surgical history that includes tumor removal (2015); knee surgery(Right, 2018); [place] tooth extraction; and Tonsillectomy. Treatment Diagnosis: Generalized Weakness Assessment Performance deficits / Impairments: Decreased functional mobility ;Decreased ADL status;Decreased balance;Decreased high-level IADLs Treatment Diagnosis: Generalized Weakness Prognosis: Good Decision Making: Medium Complexity REQUIRES OT FOLLOW-UP: Yes Activity Tolerance Activity Tolerance: Patient Tolerated treatment well Plan Occupational Therapy Plan Times Per Week: 7x/wk Times Per Day: Once a day Current Treatment Recommendations: Strengthening, Balance training, Functional mobility training, Self-Care / ADL, Safety education & training Restrictions Restrictions/Precautions Restrictions/Precautions: General Precautions, Weight Bearing, Fall Risk Lower Extremity Weight Bearing Restrictions Right Lower Extremity Weight Bearing: Weight Bearing As Tolerated Left Lower Extremity Weight Bearing: Weight Bearing As Tolerated Subjective General Chart Reviewed: Yes Patient assessed for rehabilitation services?: Yes Diagnosis: L TKA Subjective Subjective: Pt. seated in bedside chair, agreeable to OT eval. L knee pain 0/10 at rest, 3/10 with activity Social/Functional History Social/Functional History Lives With: Spouse Type of Home: House Home Layout: One level Home Access: (has 2 steps but put up temporary ramp) Bathroom Shower/Tub: Walk-in shower Bathroom Toilet: Handicap height Bathroom Equipment: Shower chair Home Equipment: Walker, rolling Has the patient had two or more falls in the past year or any fall with injury in the past year?: No ADL Assistance: Independent Homemaking Assistance: Independent Homemaking Responsibilities: Yes Ambulation Assistance: Independent Transfer Assistance: Independent Active Government Guard: Yes Objective Heart Rate: 71 Heart Rate Source: Monitor BP: 125/82 BP Location: Left upper arm BP Method: Automatic Patient Position: Semi fowlers MAP (Calculated): 96 Resp: 20 SpO2: 96 % O2 Device: None (Room air) Safety Devices Type of Devices: Call light within reach;Left in chair Bed Mobility Training Bed Mobility Training: No Balance Sitting: Intact Standing: Intact Standing - Static: Fair Standing - Dynamic: Fair Transfer Training Transfer Training: Yes Overall Level of Assistance: Contact-guard assistance Sit to Stand: Contact-guard assistance Stand to Sit: Contact-guard assistance Bed to Chair: Contact-guard assistance Gait Training Gait Training: Yes Left Side Weight Bearing: As tolerated Gait Overall Level of Assistance: Contact-guard assistance Assistive Device: Walker, rolling ADL Feeding: Independent Grooming: Stand by assistance;Contact guard assistance UE Bathing: Stand by assistance LE Bathing: Stand by assistance;Contact guard assistance UE Dressing: Stand by assistance LE Dressing: Stand by assistance;Contact guard assistance LE Dressing Skilled Clinical Factors: educated patient on use of AE for LB ADL's, states he has LH acid patroller and sock aid at home from past R knee surgery, pt. yosef valentin with SBA using acid patroller. Educated on use of easy slide/fold techinque with MAGGY armijo with pt. deepak Mercer understanding. Toileting: Stand by assistance;Contact guard assistance Activity Tolerance Activity Tolerance: Patient tolerated treatment well Transfers Stand Pivot Transfers: Contact guard assistance Sit to stand: Contact guard assistance Stand to sit: Contact guard assistance Vision Vision: Impaired Vision Exceptions: Wears glasses at all times Hearing Hearing: Within functional limits Cognition Overall Cognitive Status: WFL Orientation Overall Orientation Status: Within Functional Limits Education Given To: Patient Education Provided: Role of Therapy;Plan of Care;Transfer Training;ADL Adaptive Strategies;Fall Prevention Strategies Education Provided Comments: provided discharge folder Education Method: Demonstration;Verbal Barriers to Learning: None Education Outcome: Verbalized understanding;Demonstrated understanding LUE AROM (degrees) LUE AROM : WFL RUE AROM (degrees) RUE AROM : WFL Goals Short Term Goals Time Frame for Short Term Goals: 20 visits Short Term Goal 1: Pt. will tolerate 10 mins of dynamic standing during ADL's without LOB and w/ decreased pain to increase safety/participation with self care routine. Short Term Goal 2: Pt. will complete ADL routine with mod I using AE PRN for LB ADL's to increase (I). Short Term Goal 3: Pt. will V/D G knowledge of AE/DME use, total knee precautions, fall prevention,and safe transfer technique for safe return home. Therapy Time Individual Concurrent Group Co-treatment Time In 939 Time Out 1010 Minutes 30 Karmen Rogers OT * Radha Allan, GAS OPERATOR - 06/13/2022 11:35 AM EST Physical Therapy Facility/Department: [facility] Daily Treatment Note NAME: Júnior Rowland : 1960 Date of Service: 06/13/2022 Discharge Recommendations: Home with Home health PT, Home with assist PRN Patient Diagnosis(es): There were no encounter diagnoses. Assessment Assessment: Completed LE ther ex seated x15 reps of: heel/toe raises, LAQ, marching, hip abd, hip add with pillow Activity Tolerance: Patient tolerated treatment well Plan Physcial Therapy Plan General Plan: 2 times a day 7 days a week Restrictions Restrictions/Precautions Restrictions/Precautions: General Precautions, Weight Bearing, Fall Risk Lower Extremity Weight Bearing Restrictions Right Lower Extremity Weight Bearing: Weight Bearing As Tolerated Left Lower Extremity Weight Bearing: Weight Bearing As Tolerated Subjective Subjective Subjective: Pt reports feeling good, ready to go home. Pain: L knee pain 0/10 at rest, 3/10 with activity Orientation Overall Orientation Status: Within Functional Limits Cognition Overall Cognitive Status: WFL Bed Mobility Training Bed Mobility Training: No Overall Level of Assistance: Contact-guard assistance Rolling: Minimum assistance;Contact-guard assistance Supine to Sit: Contact-guard assistance Scooting: Contact-guard assistance Balance Sitting: Intact Standing: Intact Standing - Static: Fair Standing - Dynamic: Fair Transfer Training Transfer Training: Yes Overall Level of Assistance: Contact-guard assistance Sit to Stand: Contact-guard assistance Stand to Sit: Contact-guard assistance Bed to Chair: Contact-guard assistance Gait Training Gait Training: Yes Left Side Weight Bearing: As tolerated Gait Overall Level of Assistance: Contact-guard assistance Base of Support: Widened Step Length: Right shortened;Left shortened Gait Abnormalities: Antalgic Distance (ft): 100 Feet Assistive Device: Walker, rolling PT Exercises Exercise Treatment: Seated LE ther ex x15 reps of: heel/toe raises, LAQ, marching, hip abd, hip addwith pillow Safety Devices Type of Devices: Call light within reach;Chair alarm in place;Left in chair;Nurse notified;Gait belt Goals Short Term Goals Time Frame for Short Term Goals: 2 DAYS Short Term Goal 1: CGA TRANSFERS Short Term Goal 2: CGA GAIT FWW. Hvac R Instructor Goals Time Frame for Correction Goals : 4 WEEKS Correction Goal 1: IND GAIT ST CANE. Patient Goals Patient Goals : RETURN HOME WITH ASSIST. Education Patient Education Education Given To: Patient Education Provided: Transfer Training;Home Exercise Program Education Method: Demonstration Barriers to Learning: None Education Outcome: Verbalized understanding;Demonstrated understanding Therapy Time Individual Concurrent Group Co-treatment Time In 1100 Time Out 1132 Minutes 32 Timed Code Treatment Minutes: 32 Minutes Radha Allan, [id number] * Tanesha Fall RN - 06/13/2022 11:23 AM EST Pt walked with therapy and returned to room. He used urinal but therapist emptied it It wasn't very much, I'm sorry I didn't see you were measuring it * Radha Allan PTA - 06/13/2022 8:58 AM EST Physical Therapy Facility/Department: [facility] Daily Treatment Note NAME: Júnior Rowland : 1960 Date of Service: 06/13/2022 Discharge Recommendations: Home with Home health PT, Home with assist PRN Patient Diagnosis(es): There were no encounter diagnoses. Assessment Assessment: Completred LE ther ex supine x15 reps, ambulated 10 ft x1 with 2WW, CGA Activity Tolerance: Patient tolerated treatment well Plan Restrictions Restrictions/Precautions Restrictions/Precautions: General Precautions, Weight Bearing (WBAT L LE) Lower Extremity Weight Bearing Restrictions Right Lower Extremity Weight Bearing: Weight Bearing As Tolerated Left Lower Extremity Weight Bearing: Weight Bearing As Tolerated Subjective Subjective Subjective: Pt reports 0/10 pain at rest, 3/10 with activity in L knee Pain: 3/10 L knee Objective Vitals Bed Mobility Training Bed Mobility Training: Yes Overall Level of Assistance: Contact-guard assistance Rolling: Minimum assistance;Contact-guard assistance Supine to Sit: Contact-guard assistance Scooting: Contact-guard assistance Balance Sitting: Intact Standing: Intact Standing - Static: Fair Standing - Dynamic: Fair Transfer Training Transfer Training: Yes Sit to Stand: Contact-guard assistance Stand to Sit: Contact-guard assistance Bed to Chair: Contact-guard assistance Gait Overall Level of Assistance: Contact-guard assistance Base of Support: Widened Step Length: Right shortened;Left shortened Distance (ft): 10 Feet Assistive Device: Walker, rolling PT Exercises Exercise Treatment: Supine ther ex x15 reps of: ankle pumps, SAQ, hip abd, quad sets, heel slides, SLR Safety Devices Type of Devices: Call light within reach;Chair alarm in place;Left in chair;Nurse notified Goals Short Term Goals Time Frame for Short Term Goals: 2 DAYS Short Term Goal 1: CGA TRANSFERS Short Term Goal 2: CGA GAIT FWW. Hvac R Instructor Goals Time Frame for Hvac R Instructor Goals : 4 WEEKS Correction Goal 1: IND GAIT ST CANE. Patient Goals Patient Goals : RETURN HOME WITH ASSIST. Education Patient Education Education Given To: Patient Education Provided: Transfer Training Education Method: Demonstration Barriers to Learning: None Education Outcome: Verbalized understanding;Demonstrated understanding Therapy Time Individual Concurrent Group Co-treatment Time In 0830 Time Out 0858 Minutes 28 Timed Code Treatment Minutes: 28 Minutes Radha Allan, [id number] * Tanesha Fall RN - 06/13/2022 7:15 AM EST Pt resting in bed with eyes closed upon entering room, Dr. Mosley in at this time too. Pt denies pain, SOB at this time. Ice and elevation to left knee. Removed oxygen and saturation stayed at 95% he does not wear oxygen at home. Pt asked for a lozenge and was given. Asked for door to be closed on way out so he can get some rest. Call light in reach, will continue to monitor. * Nicky Álvarez RN - 06/13/2022 5:00 AM EST Vitals completed. Patient reassessed. Edna wrap continues to be dry, clean and intact. Hemavac emptied, 70ml bloody drainage. Water pitcher refilled. Ice pack refilled. Scheduled tylenol given. Patient denies any other needs at this time. Call light, bedside table and personal belongings within reach. * Nicky Álvarez RN - 06/13/2022 1:25 AM EST Patient awoke for vitals/assessment. Second assessment completed at this time. Assessment unchangedfrom previous shift assessment. Vital signs completed. Vital signs continues to be good. Edna wrap continues to be dry, clean and intact. Hemavac is compressed and continuing to pull drainage. Patient c/o of a headache, unable to give more tylenol at this time, but update on next time he will be getting it. Cool wash rag given for head. Patient denies any other needs at this time. Call light, bedside table and personal belongings within reach. * Nicky Álvarez RN - 06/12/2022 10:21 PM EST Scheduled tylenol given. Patient stated Nora PO did help with pain. Hemavac emptied, 70ml bloody drainage. Fresh ice put into ice pack. Patient denies any other needs at this time. Call light, bedside table and personal belongings within reach. * Nicky Álvarez RN - 06/12/2022 9:46 PM EST Spoke with Dr. Mosley on the telephone at this time about patient's throat being sore. Asked about throat lozenge. Dr. Mosley okay with ordering it. * Nicky Álvarez RN - 06/12/2022 7:37 PM EST Patient sitting up in chair watching television and visiting with . Vital signs and assessment completed. Vital signs WDLs. Edna wrap dressing is dry, clean and intact. Hemavac compressed at this time, got drainage right away. Emptied right before junior copywriter left room, 110 bloody drainage. Patient expressed wanting to get into bed. Patient stood and ambulated a few feet to bed. Patient tolerated well and did so with walker and contact guard. Ancef antibiotic hung. Patient rating pain 6/10, Nora PO given for pain. Water pitcher refilled. Patient got comfortable in bed. Patient deniesany other needs at this time. Call light, bedside table and personal belongings within reach. * Ivania Singh, PT - 06/12/2022 5:10 PM EST Physical Therapy Facility/Department: [facility] Physical Therapy Initial Assessment Name: Júnior Rowland : 1960 Date of Service: 06/12/2022 Discharge Recommendations: Home with Home health PT, Home with assist PRN PT Equipment Recommendations Equipment Needed: No Patient Diagnosis(es): There were no encounter diagnoses. Past Medical History: has no past medical history on file. Past Surgical History: has a past surgical history that includes tumor removal (2014); knee surgery(Right, 2018); [place] tooth extraction; and Tonsillectomy. Assessment Body Structures, Functions, Activity Limitations Requiring Skilled Therapeutic Intervention: Decreased functional mobility ;Decreased ADL status;Decreased ROM;Decreased strength;Decreased high-level IADLs;Increased pain Assessment: DX L TKR WBAT.MIN ASSIST GAIT,FWW,MIN ASSIST TRANSFERS.LIMITED ROM AND MP L LE.PT NECESSARY TO ADDRESS THESE DEFICITS. Treatment Diagnosis: GENERALIZED WEAKNESS. Therapy Prognosis: Good Decision Making: Medium Complexity Requires PT Follow-Up: Yes Activity Tolerance Activity Tolerance: Patient tolerated treatment well Plan Physcial Therapy Plan General Plan: 2 times a day 7 days a week Current Treatment Recommendations: Strengthening, ROM, Functional mobility training, Transfer training, ADL/Self-care training, Gait training, Neuromuscular re-education, Home exercise program, Safety education & training, Patient/Caregiver education & training Safety Devices Type of Devices: Chair alarm in place, Left in chair, Nurse notified Restrictions Restrictions/Precautions Restrictions/Precautions: General Precautions, Weight Bearing (WBAT L LE) Lower Extremity Weight Bearing Restrictions Right Lower Extremity Weight Bearing: Weight Bearing As Tolerated Left Lower Extremity Weight Bearing: Weight Bearing As Tolerated Subjective General Chart Reviewed: Yes Patient assessed for rehabilitation services?: Yes Additional Pertinent Hx: L TKR WBAT Family / Caregiver Present: No Diagnosis: L TKR WBAT. Follows Commands: Within Functional Limits Subjective Subjective: PAIN 5/10 L KNEE MEDS HELP. Social/Functional History Social/Functional History Lives With: Family Vision/Hearing Vision Vision: Within Functional Limits Hearing Hearing: Within functional limits Cognition Orientation Overall Orientation Status: Within Normal Limits Cognition Overall Cognitive Status: WNL Objective Heart Rate: 71 Heart Rate Source: Monitor BP: 133/84 BP Location: Left upper arm BP Method: Automatic Patient Position: Left side MAP (Calculated): 100 Resp: 16 SpO2: 97 % O2 Device: Nasal cannula Observation/Palpation Posture: Fair AROM RLE (degrees) RLE AROM: WFL AROM LLE (degrees) LLE AROM : Exceptions LLE General AROM: -10 KNEE EXT,70 KNEE FLEX. AROM RUE (degrees) RUE AROM : WFL AROM LUE (degrees) LUE AROM : WFL Strength RLE Strength RLE: WFL Strength LLE Strength LLE: Exception Comment: L HIP AND L KNEE 2/5,L ANKLE 3/5. Strength RUE Strength RUE: WFL Strength LUE Strength LUE: WFL Bed Mobility Training Bed Mobility Training: Yes Overall Level of Assistance: Minimum assistance Interventions: Demonstration Rolling: Minimum assistance Supine to Sit: Minimum assistance Sit to Supine: Minimum assistance Scooting: Minimum assistance Balance Sitting: Intact Standing: Impaired Standing - Static: Fair Standing - Dynamic: Fair Transfer Training Transfer Training: Yes Overall Level of Assistance: Minimum assistance Interventions: Demonstration Sit to Stand: Minimum assistance Stand to Sit: Minimum assistance Stand Pivot Transfers: Minimum assistance Bed to Chair: Minimum assistance Toilet Transfer: Minimum assistance Gait Training Gait Training: Yes Right Side Weight Bearing: As tolerated Left Side Weight Bearing: As tolerated Gait Overall Level of Assistance: Minimum assistance Interventions: Demonstration;Verbal cues Base of Support: Widened Step Length: Right shortened;Left shortened Distance (ft): 10 Feet Assistive Device: Walker, rolling Exercise Treatment: THER EX SITTING. OutComes Score AM-PAC Score Tinneti Score Goals Short Term Goals Time Frame for Short Term Goals: 2 DAYS Short Term Goal 1: CGA TRANSFERS Short Term Goal 2: CGA GAIT FWW. Correction Goals Time Frame for Hvac R Instructor Goals : 4 WEEKS Correction Goal 1: IND GAIT ST CANE. Patient Goals Patient Goals : RETURN HOME WITH ASSIST. Education Patient Education Education Given To: Patient Education Provided: Role of Therapy;Transfer Training (GAIT FWW WBAT L LE,EX SITTING.) Education Method: Demonstration Barriers to Learning: None Education Outcome: Verbalized understanding;Demonstrated understanding Therapy Time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 PA [address] [place] [address] Physician Critical Care Educator Neurology 04/11/24 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 Specialty Start Date End Date Bakari White MD NPI: [id number] [place] [place] [phone] PCP - General Family Medicine 04/11/24 Elda Bryant MD [address] [place] [address] Referring Physician Neurology 04/11/24 Darlene Brito PA [address] [place] [address] Physician Critical Care Educator Neurology 04/11/24 Eugenia Davis PA [address] [place] [address] Physician Critical Care Educator Neurology 04/11/24 Team Status: Inactive Member Role Status Dates Bakari White DO Primary Care Prov ider, Attending Provider Active Start: May 27, 2024 End: May 27, 2024 Team Status: Inactive Member Role Status Dates Bakari White DO Primary Care Provider Active Start: July 11, 2024 End: July 11, 2024 Violetta Hansen APRN Attending Provider Active S tart: July 11, 2024 End: July 11, 2024 Team Status: Inactive Member Role Status Dates Bakari White DO Primary Care Prov ider, Attending Provider Active Start: July 19, 2024 End: July 19, 2024 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 Start Date End Date Bakari White MD [address] [place] [facility] [place] [phone] PCP - General Family Medicine 04/11/24 Elda Bryant MD [address] [place] [address] Referring Physician Neurology 04/11/24 Darlene Brito PA [address] [place] [address] Physician Critical Care Educator Neurology 04/11/24 Eugenia Davis PA [address] [place] [address] Physician Critical Care Educator Neurology 04/11/24 Goals (unrecognized section and content) Goals may be documented in a n alternate section Scheduled Active and Recently Administ ered Medications (unrecognized section and content) Medication Order 06/07/2022 06/08/2022 06/09/2022 acetaminophen (TYLENOL) tablet 650 mg (COMPLETED) 650 mg, Oral, ONCE, 1 dose, On Thu06/09/22 at 1100, Maximum dose of acetaminophen is 4000 mg from all sources in 24 hours. 2 hours prior to surgery, Pre-op (day of surgery) 1108 (Given - Provid er: Juany Best RN) ceFAZolin (ANCEF) 1,000 mg in dextrose 5 % 50 mL IVPB (mini-bag) 1,000 mg, IntraVENous, at 100 mL/hr, Administer over 30 Minutes, ONCE, On Thu06/09/22 at 1100, For 1 dose, Send to OR, Pre-op (day of surgery) 1100 (Due) ceFAZolin (ANCEF) 3000 mg in dextrose 5 % 100 mL IVPB 3,000 mg, IntraVENous, at 200 mL/hr, Administer over 30 Minutes, ONCE, On Thu06/09/22 at 1100, For 1 dose, Pre-op (day of surgery) 1100 (Due) celecoxib (CELEBREX) capsule 400 mg (COMPLETED) 400 mg, Oral, ONCE, 1 dose, On Thu06/09/22 at 1100, 2 hours prior to surgery, Pre-op (day of surgery) 1108 (Given - Provid er: Juany Best RN) dimenhyDRINATE (DRAMAMINE) tablet 50 mg (COMPLETED) 50 mg, Oral, ONCE, 1 dose, On Thu06/09/22 at 1100, Pre-op (day of surgery) 1108 (Given - Provid er: Juany Best RN) tranexamic acid (LYSTEDA) tablet 1,300 mg (COMPLETED) 1,300 mg, Oral, ONCE, 1 dose, On Thu06/09/22 at 1100, Do not crush or break. Give 2 hours prior to surgery, Pre-op (day of surgery) 1114 (Given - Provid er: Juany Best RN) Continuous Medication Order 06/07/2022 06/08/2022 06/09/2022 lactated ringers infusion IntraVENous, at 100 mL/hr, CONTINUOUS, Starting on Thu06/09/22 at 1100, Pre-op (day of surgery) 1121 (New Bag - Prov ider: Juany Best RN) Scheduled Medication Order 06/11/2022 06/12/2022 06/13/2022 acetaminophen (TYLENOL) tablet 650 mg (COMPLETED) 650 mg, Oral, ONCE, 1 dose, On Whit 06/12/22 at 0915, Maximum dose of acetaminophen is 4000 mg from all sources in 24 hours., Pre-op (day of surgery) 0920 (Given - Provider: Ida Ernst RN) acetaminophen (TYLENOL) tablet 650 mg 650 mg, Oral, EVERY 6 HOURS, First dose on Whit 06/12/22 at 1600, Until Discontinued, Maximum dose of acetaminophen is 4000 mg from all sources in 24 hours., Post-op 1545 (Given - Provider: Gregory Toledo RN)2221 (Given - Provider: Nicky Álvarez RN) 0455 (Given - Provider: Nicky Álvarez RN)0926 (Given - Provider: Tanesha Fall RN)1641 (Given - Provider: Tanesha Fall RN)2200 (Due) ceFAZolin (ANCEF) 3000 mg in dextrose 5 % 100 mL IVPB (COMPLETED) 3,000 mg, IntraVENous, ONCE, 1 dose, On Whit 06/12/22 at 0915, Antimicrobial Indications: Surgical Prophylaxis, Pre-op (day of surgery) 1020 (New Bag - Provider: Mariola Esquivel RN)1201 (Stopped - Provider: Sunny Abdullahi RN) ceFAZolin (ANCEF) 3000 mg in dextrose 5 % 100 mL IVPB (COMPLETED) 3,000 mg, IntraVENous, EVERY 8 HOURS, 2 doses, First dose on Whit 06/12/22 at 1830, Last dose on Thu06/13/22 at 0230, Antimicrobial Indications: Surgical Prophylaxis, Post-op 1920 (New Bag - Provider: Nicky Álvarez RN - Comment: medication mixed with override)1950 (Stopped - Provider: Nicky Álvarez RN) 0124 (New Bag - Provider: Nicky Álvarez RN - Comment: medication mixed)020 (Stopped - Provider: Nicky Álvarez RN) celecoxib (CELEBREX) capsule 400 mg (COMPLETED) 400 mg, Oral, ONCE, 1 dose, On Whit 06/12/22 at 0915 0920 (Given - Provider: Ida Ernst RN) dimenhyDRINATE (DRAMAMINE) tablet 50 mg (COMPLETED) 50 mg, Oral, ONCE, 1 dose, On Whit 06/12/22 at 0915, Pre-op (day of surgery) 0919 (Given - Provider: Ida Ernst RN) enoxaparin (LOVENOX) injection 40 mg 40 mg, SubCUTAneous, 2 TIMES DAILY, First dose (after last modification) on Thu06/13/22 at 0900, Until Discontinued, Indication of Use: Prophylaxis-DVT/PE, Other, Other Enoxaparin Indication: post op, Post-op 07 (Given - Provid er: Tanesha Fall RN)2099 (Due) sodium chloride flush 0.9 % injection 5-40 mL 5-40 mL, IntraVENous, EVERY 12 HOURS SCHEDULED (2 times per day), First dose on Whit 06/12/22 at 2100, Until Discontinued, For Line Patency: Peripheral IV = 5 mL; Midline or Central Line = 10 mL/lumen. If following IV push medication, administer flush at same rate as the IV push. Flush volume is determined by type of infusion therapy being given. For non-viscous solutions use: Peripheral IV = 5 mL Midline or Central Line = 10 mL/lumen For viscous solutions (i.e. blood components, parenteral nutrition, contrast media, or after obtaining blood sample) use: Peripheral IV = 10 mL Midline or Central Line = 20 mL/lumen, Post-op 2053 (Not Given - Provider: Nicky Álvarez RN - Reason: IV Fluid Infusing) 0732 (Given - Provider: Tanesha Fall RN)2100 (Due) tranexamic acid (LYSTEDA) tablet 1,300 mg (COMPLETED) 1,300 mg, Oral, ONCE, 1 dose, On Whit 06/12/22 at 0915, Do not crush or break. 0919 (Given - Provider: Ida Ernst RN) tranexamic acid (LYSTEDA) tablet 1,300 mg (COMPLETED) 1,300 mg, Oral, ONCE, 1 dose, On Thu06/13/22 at 1800, Do not crush or break. to be given 12 hours after initial pre-op dose 1753 (Given - Provid er: Tanesha Fall RN) Continuous Medication Order 06/11/2022 06/12/2022 06/13/2022 lactated ringers infusion (CANCELED) IntraVENous, at 100 mL/hr, CONTINUOUS, Starting on Whit 06/12/22 at 0915, Pre-op (day of surgery) 0936 (New Bag - Provider: Ida Ernst RN)1023 (NoRateChange - Provider: Christian Bell APRN - WORD PROCESSING MACHINE OPERATOR)1254 (Paused - Provider: Keshia Esquivel APRN - WORD PROCESSING MACHINE OPERATOR - Comment: Switch to gravity)1255 (New Bag - Provider: Keshia Esquivel APRN - WORD PROCESSING MACHINE OPERATOR)1412 (Anesthesia Volume Adjustment - Provider: Keshia Esquivel APRN - WORD PROCESSING MACHINE OPERATOR)1538 (Stopped - Provider: Kathi Jimenez RN - Comment: stopped by Janice Toledo RN) lactated ringers infusion (CANCELED) IntraVENous, at 80 mL/hr, CONTINUOUS, Starting on Whit 06/12/22 at 1600, [place] when taking fluids well, Post-op 1539 (New Bag - Provider: Gregory Toledo RN)2224 (Stopped - Provider: Nicky Álvarez RN - Comment: pt tolerating fluids well; discontinued per ordered under continous fluids terms) PRN Medication Order 06/11/2022 06/12/2022 06/13/2022 0.9 % sodium chloride infusion IntraVENous, at 5-250 mL/hr, PRN, if patient receiving piggyback infusions and maintenance fluids are not ordered OR KVO fluids to protect IV site / prevent frequent line interruptions/ long duration, Starting on Whit 06/12/22 at 1536, For piggyback infusion, administer at same rate as piggyback for a total of 25 mL. Enter 25 mL into dose field and piggyback rate into rate field of order. If piggyback is infusing at a rate less than 100 mL/hr, enter 25 mL into dose field and 100 mL/hr into rate field of order. For KVO fluids, enter rate of 20 mL/hr or less into rate field of order., Post-op Benzocaine-Menthol (CEPACOL) 1 lozenge 1 lozenge, Oral, EVERY 2 HOURS PRN, Starting on Whit 06/12/22 at 2146, Until Discontinued, Sore Throat 2221 (Given - Provider: Nicky Álvarez RN) 0731 (Given - Provider: Tanesha Fall RN) fentaNYL (SUBLIMAZE) injection 25 mcg (CANCELED) 25 mcg, IntraVENous, EVERY 5 MIN PRN, 4 doses, Starting on Whit 06/12/22 at 1421, Until Whit 06/12/22 at 1515, Pain Moderate (4-6), Phase I - Initial therapy for moderate pain., PACU only 1426 (Given - Provider: Juany Best RN)1431 (Given - Provider: Juany Best RN) fentaNYL (SUBLIMAZE) injection 50 mcg (CANCELED) 50 mcg, IntraVENous, EVERY 5 MIN PRN, 4 doses, Starting on Whit 06/12/22 at 1421, Until Whit 06/12/22 at 1515, Pain Severe (7-10), Phase I - Initial therapy for severe pain., PACU only 1443 (Given - Provider: Juany Best RN) gentamicin (GARAMYCIN) injection (CANCELED) PRN, Starting on Whit 06/12/22 at 1207, Until Whit 06/12/22 at 1411, Intra-op 1207 (Given - Provider: Ajay Galvan MD - Comment: added to 1,000ml 0.9% NS on back table for irrigation) HYDROcodone-acetaminophen (NORCO) 5-325 MG per tablet 1 tablet 1 tablet, Oral, EVERY 4 HOURS PRN, Starting on Whit 06/12/22 at 1645, Until Discontinued, Pain Moderate (4-6), Pain Severe (7-10), Maximum dose of acetaminophen is 4000 mg from all sources in 24 hours. 1920 (Given - Provider: Nicky Álvarez RN) 0926 (Given - Provider: Tanesha Fall RN)7925 (Given - Provider: Tanesha Fall RN) akuadppps-vylxiwtkbdq-dftwc ine 60-150-60 MG/50ML injection (CANCELED) PRN, Starting on Whit 06/12/22 at 1205, Until Whit 06/12/22 at 1411, Intra-op 1205 (Given - Provider: Ajay Galvan MD - Comment: 50ml 0.9% NS added to BKK solution prior to injection to left knee. BUD: 06/12/22 1248 preparation: LH - compounded pharmacy product) sodium chloride (PF) 0.9 % injection (CANCELED) PRN, Starting on Whit 06/12/22 at 1206, Until Whit 06/12/22 at 1411, Intra-op 1206 (Given - Provider: Ajay Galvan MD - Comment: added to BKK solution prior to injection to left knee) sodium chloride 0.9 % 3,000 mL with gentamicin (GARAMYCIN) 80 mg (CANCELED) PRN, Starting on Whit 06/12/22 at 1205, Intra-op 1205 (Given - Provider: Ajay Galvan MD) sodium chloride flush 0.9 % injection 5-40 mL 5-40 mL, IntraVENous, PRN, Starting on Whit 06/12/22 at 1536, Until Discontinued, Line Care, After every IV line use, For Line Patency: Peripheral IV = 5 mL; Midline or Central Line = 10 mL/lumen. If following IV push medication, administer flush at same rate as the IV push. Flush volume is determined by type of infusion therapy being given. For non-viscous solutions use: Peripheral IV = 5 mL Midline or Central Line = 10 mL/lumen For viscous solutions (i.e. blood components, parenteral nutrition, contrast media, or after obtaining blood sample) use: Peripheral IV = 10 mL Midline or Central Line = 20 mL/lumen, Post-op vancomycin (VANCOCIN) injection (CANCELED) PRN, Starting on Whit 06/12/22 at 1259, Until Whit 06/12/22 at 1411, Intra-op 1259 (Given - Provider: Ajay Galvan MD) No Frequency Medication Order 06/11/2022 06/12/2022 06/13/2022 ceFAZolin (ANCEF) 1 g injection (COMPLETED) 1 dose, Starting on Thu06/12/22 at 1858, Until Thu06/12/22 at 1915, Nicky Álvarez: cabinet override, Nicky Álvarez: cabinet override 191 (Given - Provider: Nicky Álvarez RN - Comment: mixed medication for ancef) ceFAZolin (ANCEF) 1 g injection (COMPLETED) 1 dose, Starting on Thu06/13/22 at 0116, Until Thu06/13/22 at 0124, Nicky Álvarez: cabinet override, Nicky Álvarez: cabinet override 0124 (Given - Provid er: Nicky Álvarez RN - Comment: medication mixed for ancef) dextrose 5 % solution (COMPLETED) Starting on Thu06/12/22 at 1857, For 1 dose, Nicky Álvarez: beatrisinet override 1915 (New Bag - Provider: Nicky Álvarez RN - Comment: mixed medication for ancef)1950 (Stopped - Provider: Nicky Álvarez RN) dextrose 5 % solution (COMPLETED) Starting on Thu06/13/22 at 0115, For 1 dose, Nicky Álvarez: beatrisinet override 0124 (New Bag - Provider: Nicky Álvarez RN - Comment: medication mixed for ancef)0204 (Stopped - Provider: Nicky Álvarez RN) Ordered Prescriptions (unrec ognized section and content) Prescription Sig Dispensed Refills Start Date End Da te rivaroxaban (XARELTO) 10 MG TABS tablet Take 1 tablet by mouth daily (with breakfast) 12 tablet 0 06/13/2022 HYDROcodone-acetaminophe n (NORCO) 5-325 MG per tabletIndications:S/P TKR (total knee replacement) using cement, left Take 1-2 tablets by mouth every 4 hours as needed for Pain for up to 7 days. Max Daily Amount: 12 tablets 40 tablet 0 06/13/2022 06/20/2022 FOR RECORDS PERTAINING TO PATIENTS WHO ARE OR HAVE BEEN ENROLLED IN A CHEMICAL DEPENDENCY/SUBSTANCEABUSE PROGRAM, SOME INFORMATION MAY BE OMITTED. This clinical summary was aggregated from multiple sources. Caution should be exercised in using it in the provision of clinical care. This summary normalizes information from multiple sources, and as a consequence, information in this document may materially change the coding, format and clinical context of patient data. In addition, data may be omitted in some cases. CLINICAL DECISIONS SHOULD BE BASED ON THE PRIMARY CLINICAL RECORDS. [facility] [employer], [facility]. provides no warranty or guarantee of the accuracy or completeness of information in this document.
--- NOTE | 2024-08-31 10:30 | P.CN_ITS ---
Consult Note: HPI Data of Consult Patient: known to practice within the last 3 years Requesting Physician: Tea Baig NP Primary Care Provider: Non-Staff Physician, MD Consult Narrative Reason for consult: f/u Narrative: Júnior Chu a pleasant 64 year old male presents for evaluation of chronic left foot/LE pain. Pain now 7-8/10 increasing to 10/10. previously underwent left L4-5 L5-S1 TFESI with >50% improvement for 3 months, is wearing off and pt would like to discuss repeating. cc:: CC: Tea Baig NP Review of Systems ROS Status of ROS 10 or more systems reviewed and unremark able except as noted in history and below Musculoskeletal Reports: extremity pain PFSH PFSH Medical History (Updated 06/06/24 @ 08:35 by Nikki Pham) Neck pain ?M54.2 - Cervicalgia (ICD-10) Obesity ?E66.9 - Obesity, unspecified (ICD-10) Kidney stone ?N20.0 - Calculus of kidney (ICD-10) Sleep apnea ?G47.30 - Sleep apnea, unspecified (ICD-10) Surgical History Hx of total knee arthroplasty ?Z96.659 - Presence of unspecified artificial knee joint (ICD-10) Meds Home Medications and Allergies Home Medications ?Medication ?Instructions ?Recorded ?Confirmed ?Type tamsulosin 0.4 mg capsule mg PO 06/06/24 History Allergies Allergy/AdvReac Type Severity Reaction Status Date / Time No Known Drug Allergies Allergy Verified 06/06/24 08:40 Exam Narrative Exam Narrative: Psych-alert and oriented x 3. Attentive and appropriate, constitutionally normal, displays normal mood and affect per situation. There are no obvious deficits in memory, reasoning, or intellect.? Skin-no obvious rashes, bruising, erythema noted to the patient's area of pain.? Extremities- extremities are warm with minimal edema and palpable pulses. Lumbar-tenderness to palpation noted in the lumbar spine and paraspinal musculature. Pain is elicited with flexion, extension, and lateral rotation of the lumbar spine. Range of motion is diminished with these motions. Facet loading maneuvers are positive. Strength-noted to be unremarkable with the exception of decreased strength rated at 4 out of 5 in left anterior tibialis, posterior tibialis. Sensory-no notable sensory deficits in the bilateral lower extremities to touch or pinprick in all dermatomal distributions with the exception to decreased sensation to the left L4, L5, S1 dermatomal distribution Coordination remains intact.? Gait remains non-antalgic. Results Additional Findings Additional findings: If on a controlled substance or opioids, I have checked an [place] report on this patient and there are no aberrancies noted in the prescribing history.??If on a controlled substance or opioid a drug screen was completed and reviewed within the last year, and if there has not been a drug screen completed we ordered one today to monitor higher risk, state monitored pain medication use. As part of providing excellent, safe, comprehensive care, the following was completed at our patient's visit: 1. A medication reconciliation and review to ensure accurate knowledge of current/active medications, including asking our patients to inform us about any njbt-dau-rbvxawu medications or herbal remedies/nutritional supplements/alternative remedies. 2. A review to specifically ensure our patients have had annual screening for screening for depression, screening for tobacco use, and screening for unhealthy alcohol use. For concerning screenings had a discussion with the patient, provided patient education, and recommended follow-up with primary care provider when appropriate. If patient noted with a risk of falling, they received education on strength, gait, and balance training to prevent future risk of falling. Portions of this note may have been carried over from the previous visit and updated as appropriate. Please note this office utilizes paper charting in addition to the electronic medical record. A list of current medications, vitals, and PMH is available there as the clinical staff outside of myself do not have access to [employer] charting during the clinic day operations. As part of providing quality comprehensive care the current medications, vitals, and PMH were reviewed in the paper chart. Assessment and Plan Assessment and Plan (1) Lumbar stenosis with neurogenic claudication: (2) Lumbar spondylosis: Plan 64yom who presents for evaluation. failed conservative measures, as noted. imaging reviewed, as noted. given symptoms and imaging, prudent to attempt repeat left l4-5, l5-s1 tfesi under fluoroscopic guidance as prior TFESI provided >50% improvement for 3 months. he is in agreement. meds reviewed, no changes. follow up after procedure.
== END 2024-08-31 10:21 | disposition home or self-care (01) ==
LOC: PM 10:21
PROVIDERS: Visit Provider Nurse Practitioner
DX: M48.062 Spinal stenosis, lumbar region with neurogenic claudication (principal); M47.816 Spondylosis without myelopathy or radiculopathy, lumbar region
CPT/HCPCS: G0463

== ENCOUNTER 2024-09-19 07:41 | Day surgery (SDC) | payer BC, SELFPAY ==
[2024-09-19 08:04] VITALS: BP 167/89; PULSE 84; TEMP 36.3; O2SAT 96
[2024-09-19 09:01] VITALS: BP 150/86; PULSE 80; O2SAT 95
[2024-09-19 09:03] VITALS: PULSE 82; O2SAT 96
[2024-09-19] MEDS: 0.9 % SODIUM CHLORIDE 10 ML SYRINGE - SALINE FLUSH INJ (09:07)
[2024-09-19] MEDS: IOHEXOL 240 MG/ML - 10 ML VIAL INJ (09:07)
[2024-09-19] MEDS: METHYLPREDNISOLONE ACETATE 40 MG/ML VIAL 80 MG INJ (09:07)
[2024-09-19] MEDS: BUPIVACAINE HCL 0.25% PF 25 MG/10 ML VIAL INJ (09:07)
[2024-09-19 09:08] VITALS: BP 178/92
[2024-09-19] MEDS: LIDOCAINE HCL 2% 400 MG/20 ML MDV 3 ML INJ (09:08)
--- NOTE | 2024-09-19 09:09 | P.ON_ITS ---
Date of procedure: 09/19/24 Pre-op diagnosis: Pain due to lumbar stenosis with neurogenic claudication Post-op diagnosis: same as pre-op Procedure: Procedure: Left L4-5, L5-S1 transforaminal epidural steroid injection Medications: Bupivacaine 0.25% 2cc, lidocaine 2% 1cc, depomedrol 80mg The patient was seen and examined in the preoperative holding area.? Informed consent was obtained and placed on the chart.? Patient was brought to the medical procedure unit and placed in the prone position where a timeout was completed verifying the correct patient, procedure site, position, and planned special equipment using sterile aseptic technique.? Under direct fluoroscopic visualization a 25-gauge Quincke tipped spinal needle was advanced to the designated neural foramen where contrast dye was injected to show adequate spread.? The needle was inserted at level left L4-5. There was no evidence of vascular or adverse uptake.? Epidural spread was appreciated.? The above- mentioned injectate was then placed in a 1.5 mL aliquot preceded by negative aspiration.? The needle was removed. The needle was inserted and the procedure repeated at level left L5-S1.? The surgery site was covered.? Patient was taken to the postprocedural recovery area and monitored for an appropriate length of time before found suitable for discharge in the accompaniment of a responsible adult. Anesthesia: Local Surgeon: Apolonia Coleman Pathology: none sent Condition: stable Disposition: no change
== END 2024-09-19 09:14 | disposition home or self-care (01) ==
LOC: SURGOUT 07:41
PROVIDERS: Visit Provider Anesthesiology
DX: M48.062 Spinal stenosis, lumbar region with neurogenic claudication (principal); M54.50 Low back pain, unspecified
CPT/HCPCS: 64483; 64484; J0665; J1010; Q9966

== ENCOUNTER 2024-09-28 09:53 | Outpatient (OUT) | payer BC, SELFPAY ==
--- NOTE | 2024-09-28 10:17 | P.CN_ITS ---
Consult Note: HPI Data of Consult Patient: known to practice within the last 3 years Requesting Physician: Tea Baig NP Primary Care Provider: Non-Staff Physician, Consult Narrative Reason for consult: f/u Narrative: Júnior Chu a pleasant 64 year old male presents for evaluation of chronic left foot/LE pain. Pain now 5/10 increasing to 10/10. recently underwent repeat left L4-5 L5-S1 TFESI with mild relief ongoing, less than 50% improvement at this time. 100% pain in left foot and ankle, 0% back pain per pt. pt has failed to benefit from > 6 weeks of PT/provider guided HEP, heat, ice, tylenol and NSAIDs in the past. could not tolerate gabapentin or pregabalin. SARAH 20% cc:: CC: Tea Baig NP Review of Systems ROS Status of ROS 10 or more systems reviewed and unremark able except as noted in history and below Musculoskeletal Reports: extremity pain PFSH PFSH Medical History (Updated 09/28/24 @ 10:24 by Tea Baig NP) Neck pain ?M54.2 - Cervicalgia (ICD-10) Obesity ?E66.9 - Obesity, unspecified (ICD-10) Kidney stone ?N20.0 - Calculus of kidney (ICD-10) Sleep apnea ?G47.30 - Sleep apnea, unspecified (ICD-10) Surgical History Hx of total knee arthroplasty ?Z96.659 - Presence of unspecified artificial knee joint (ICD-10) Meds Home Medications and Allergies Allergies Allergy/AdvReac Type Severity Reaction Status Date / Time No Known Drug Allergies Allergy Verified 09/19/24 08:09 Exam Constitutional Documenting provider has reviewed patient's vital signs: yes Common normals: no apparent distress, oriented x3, alert and well nourished General appearance: cooperative Nutritional appearance: obese HENMT Common normals: normocephalic, hearing grossly normal bilaterally and moist oral mucous membranes Head and scalp: normocephalic Eye Common normals: PERRL Pupil: PERRL Neck & C-Spine Common normals: full ROM General: normal visual inspection Chest Common normals: inspection of chest normal Respiratory Common normals: normal respiratory effort, no retractions and no use of access ory muscles Back & Pelvis Lumbar spine/lower back: ROM limited and straight leg raise negative bilaterally; no pain with ROM and no lumbar spinal tenderness Extremity Other: decreased sensation to left L5,S1 dermatomal pattern below left knee. significant pain at foot and ankle. no redness or edema noted. full ROM. significant increase in pain of left foot with flexion/extension Neuro Common normals: oriented x3 Sensorium/orientation: alert Psych Common normals: mental status grossly normal, thought process normal, cooperative, affect normal, speech normal and activity/motor behavior normal Speech: normal speech Thought process: normal thought process Results Additional Findings Additional findings: If on a controlled substance or opioids, I have checked an [place] report on this patient and there are no aberrancies noted in the prescribing history.??If on a controlled substance or opioid a drug screen was completed and reviewed within the last year, and if there has not been a drug screen completed we ordered one today to monitor higher risk, state monitored pain medication use. As part of providing excellent, safe, comprehensive care, the following was completed at our patient's visit: 1. A medication reconciliation and review to ensure accurate knowledge of current/active medications, including asking our patients to inform us about any [id number] medications or herbal remedies/nutritional supplements/alternative remedies. 2. A review to specifically ensure our patients have had annual screening for screening for depression, screening for tobacco use, and screening for unhealthy alcohol use. For concerning screenings had a discussion with the patient, provided patient education, and recommended follow-up with primary care provider when appropriate. If patient noted with a risk of falling, they received education on strength, gait, and balance training to prevent future risk of falling. Portions of this note may have been carried over from the previous visit and updated as appropriate. Please note this office utilizes paper charting in addition to the electronic medical record. A list of current medications, vitals, and PMH is available there as the clinical staff outside of myself do not have access to [employer] charting during the clinic day operations. As part of providing quality comprehensive care the current medications, vitals, and PMH were reviewed in the paper chart. Assessment and Plan Assessment and Plan (1) Sciatica: (2) Lumbar radiculopathy: (3) Lumbar stenosis with neurogenic claudication: (4) Lumbar spondylosis: Plan 64yom who presents for evaluation. failed conservative measures, as noted. imaging reviewed, as noted. given symptoms and imaging, prudent to attempt left distal sciatic nerve block under fluoroscopy. start zonegran 50mg HS for 1 week, increase to 100mg HS. risks vs benefits reviewed. consider scs trial terminal manager. f/u in office for evaluation after injection
== END 2024-09-28 09:54 | disposition home or self-care (01) ==
LOC: PM 09:55
PROVIDERS: Visit Provider Nurse Practitioner
DX: M54.16 Radiculopathy, lumbar region (principal); M54.30 Sciatica, unspecified side; M48.062 Spinal stenosis, lumbar region with neurogenic claudication; M47.816 Spondylosis without myelopathy or radiculopathy, lumbar region
CPT/HCPCS: G0463

== ENCOUNTER 2024-10-10 08:45 | Day surgery (SDC) | payer BC, SELFPAY ==
--- OUTSIDE RECORDS SUMMARY | 2024-10-10 08:49 | XMS_ITS | CCD ---
Author Organization [facility] Inform ion [facility] Care Team Providers Care Assistant Editor Name Role Phone EBRAHEIM, ALEK Unavailable Unavailable EBRAHEIM, ALEK Unavailable Unavailable STEPANIC, KRISTIE C Unavailable Unavailable LUIS, FATOU Unavailable Unavailable DE Unavailable Unavailable EBRAHEIM, ALEK Unavailable Unavailable ROXANN, MEG M Unavailable Unavailable ROXANN, MEG M Unavailable Unavailable ROXANN, MEG M Unavailable Unavailable LUIS, FATOU Unavailable Unavailable EBRAHEIM, ALEK Unavailable Unavailable EBRAHEIM, ALEK Unavailable Unavailable LUIS, FATOU Unavailable Unavailable LUIS, FATOU Unavailable Unavailable DE Unavailable Unavailable EBRAHEIM, ALEK Unavailable Unavailable DE Unavailable Unavailable CASABIANCA, ABEL Unavailable Unavailable EBRAHEIM, [...] Unavailable DO Bakari White Primary Care Provider [phone] DO Bakari White Attending Provider [phone] SALOMON Diehl Emergency Provider [phone] Unavailable Primary Care Provider Fatou Levy MD Primary Care Provider AJAY GALVAN Referring Unavailable MALIKAAJAY NUR E Admitting Unavailable MALIKA, AJAY E Attending [...] Primary Care Unavailable MERCEDEZ VILLANUEVA Attending Unavailable Christopher OCONNOR, Bakari Moise Primary Care Provider Christopher ELIZABETH, Bakari Primary Care Provider Christopher ELIZABETH, Bakari Attending Provider [phone] Christopher OCONNOR, Bakari Moise Primary Care Provider Elda Byrant MD Unavailable Darlene Salcedo Unavailable Eugenia Torres Unavailable Christopher, Bakari Admitting Unavailable Braniecki, Bakari Attending Unavailable Russelliecki, Bakari Primary Care Unavailable Braniecki, Bakari Admitting Unavailable Braniecki, Bakari Attending Unavailable Branieckmarkos, Bakari Primary Care Unavailable DUSTY PATTERSON Attending Unavailable ALESSANDRA MURILLO Referring Unavailable LOUISA GUY Attending Unavailable ALESSANDRA MURILLO Referring Unavailable MARIO MENSAH Attending Unavailable DARLENE BRITO Attending Unavailable Virginia OCONNOR, Apolonia Leung Attending Unavailable Ashleyitis , Apolonia Leung Attending Unavailable Virginia OCONNOR, Apolonia Leung Attending Unavailable Unavailable Unavailable Unavailable Allergies Allergy Classification Reported Allergen(s) Allergy Type Date of Onset Reaction(s) Facility (2 sources) cephalexin Drug Allergy 11-02-2017 AOF, RASH [facility] Repository (1 source) vancomycin; Translations: [VANCOMYCIN] Drug Allergy 11-20-[address] [facility] Repository (18 sources) Cephalexin Drug Allergy rash [place] Other (1 source) Cephalexin Drug Allergy 04-19-2024 [facility] Repository Medications Current Medications Medication Drug Class(es) [...] Hydrocodone-Acetaminophen Active 1 TAB P O Q6H 05 03January 29, 2022 [id number] 200 actuat albuterol 0.09 mg/actuat metered dose [...] spray(s) by inhalation three times daily Ipratropium [place] 0.06 % 2 sprays in each nostril [...] Start: 01-08-2022 take 1 tablet by arabella three times daily as needed Cyclobenzaprine HCl [...] (20 sources) Start: 03-02-2017 Euflexxa 02 Oc t, 2016 2 mL Start: 02-23-2017 Euflexxa 25 Se p, 2016 1 mL Start: 02-16-2017 Euflexxa 18 Se p, 2016 2 mL Start: 01-26-2017 Euflexxa 28 Au g, 2016 Start: 01-19-2017 Euflexxa 21 Au g, 2016 2 mL Start: 2017 Euflexxa 14 Au g, 2016 2 mL methylPREDNISolone 4 mg oral tablet [...] Start: 01-29-2022 take 1 tablet by arabella twice daily Naproxen (Naprosyn) 500 mg tablet [...] sources) preadmission tessting; Translations: [preadmission tessting] Onset: 12-12-2022 Unclassified (1 source) Medical Screening Onset: 05-29-2023 [...] Onset: 05-29-2023 Episodic Other 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; Translations: [HALFWAY CURRNT USE ANTICOAGULANTS] Onset: 11-02-2017 Episodic Other [...] A virus antibody titer by complement fixation [facility] Influenza virus B Ab [Titer] in Serum by Complement fixationon 07-11-2024 FLUBV Ab CF (S) [Titer] Influenza virus B Ab [Titer] in Serum by Complement fixation [facility] X-ray reportOrdered By: Chaparrita Shepherd on 04-19-2024 Study report [facility] [address] [place] [address] XRay Report Signed Patient: Júnior Rowland MR#: [id number] : 1960 Acct:[id number] Age/Sex: 64 / M ADM Date: 4 Loc: [facility] Room: Type: [facility] Attending Dr: Bakari White DO Copies [...] Dianne Shepherd M.D.04/19/2024 4:20 PM Dictation Location: [place] [address] Transcribed By: [facility] 04/19/24 1620 Dictated By: Dianne Shepherd MD 04/19/24 1611 Signed By: 04/19/24 [id number] [facility] Work Phone: XR foot LT min 3V*on 024 XR foot LT min 3V* [facility] [address] [place] [address] XRay Report Signed Patient: Júnior Rowland MR#: [id number] : 1960 Acct:[id number] Age/Sex: 64 / M ADM Date: 04/19/24 Loc: [facility] Room: Type: [facility] Attending Dr: Bakari White DO Copies [...] Dianne Shepherd M.D.04/19/2024 4:20 PM Dictation Location: [place] [address] Transcribed By: [facility] 04/19/24 1620 Dictated By: Dianne Shepherd MD 04/19/24 1618 Signed By: 04/19/24 1620 Normal [facility] Alanine aminotransferase [En zymatic activity/volume] in Serum or PlasmaOrdered By: Bakari White on 04-13-2024 ALT [Catalytic activity/Vol] Alanine aminotransferase [Enzymatic activity/volume] in Serum or Plasma [facility] Albumin [Mass/volume] in Ser um or Plasma by Bromocresol green (BCG) dye binding methoOrdered By: Bakari White on 04-13-2024 Albumin BCG dye [Mass/Vol] Albumin [Mass/volume] in Serum or Plasma by Bromocresol green (BCG) dye binding metho 3.5-5.7 [facility] Alkaline phosphatase [Enzyma tic activity/volume] in Serum or PlasmaOrdered By: Bakari White on 04-13-2024 ALP [Catalytic activity/Vol] Alkaline phosphatase [Enzymatic activity/volume] in Serum or Plasma 34-104 [facility] Aspartate aminotransferase [ Enzymatic activity/volume] in Serum or PlasmaOrdered By: Bakari White on 04-13-2024 AST [Catalytic activity/Vol] Aspartate aminotransferase [Enzymatic activity/volume] in Serum or Plasma 13-39 [facility] Basophils Auto (Bld) [#/Vol] Ordered By: Bakari White on 04-13-2024 Basophils (Bld) [#/Vol] Automated basophil count 0.0-0.2 [facility] Basophils/100 WBC Auto (Bld) Ordered By: Bakari White on 04-13-2024 Basophils/100 WBC (Bld) Automated basophil % . [facility] Bilirubin.total [Mass/volume ] in Serum or PlasmaOrdered By: Bakari White on 04-13-2024 Bilirubin [Mass/Vol] Bilirubin.total [Mass/volume] in Serum or Plasma 0.3-1.0 [facility] Calcium [Mass/volume] in Ser um or PlasmaOrdered By: Bakari White on 04-13-2024 Calcium [Mass/Vol] Calcium [Mass/volume ] in Serum or Plasma 8.6-10.3 [facility] Carbon dioxide, total [Moles /volume] in Serum or PlasmaOrdered By: Bakari White on 04-13-2024 CO2 [Moles/Vol] Carbon dioxide, tota l [Moles/volume] in Serum or Plasma High 21.0-31.0 [facility] Chloride [Moles/volume] in S tobias or PlasmaOrdered By: Bakari White on 04-13-2024 Chloride [Moles/Vol] Chloride [Moles/vol ume] in Serum or Plasma 98-107 [facility] Cholesterol [Mass/volume] in Serum or PlasmaOrdered By: Bakari White on 04-13-2024 Cholesterol [Mass/Vol] Cholesterol [Mass/volume] in Serum or Plasma 140-200 [facility] Comment on above: Chol less than 200 m g/dl low riskChol 201-239 mg/dl borderline riskChol 240 mg/dl and greater high risk Cholesterol in HDL [Mass/vol ume] in Serum or PlasmaOrdered By: Bakari White on 04-13-2024 Cholesterol in HDL [Mass/Vol] Serum or plasma high density lipoprotein (HDL) cholesterol measurement 23-92 [facility] Comment on above: HDL CHOL ATP-III CLA SSIFICATION Cardiovascular RiskHDL > or equal to 60 mg/dL LOWHDL < 40 mg/dL HIGH Cholesterol in LDL Calc [Mas s/Vol]Ordered By: Bakari White on 04-13-2024 Cholesterol in LDL [Mass/Vol] Cholesterol in LDL [Mass/volume] in Serum or Plasma by calculation High 0-100 [facility] Comment on above: LDL ATP III CLASSIFI CATIONLDL less than 100 mg/dL OptimalLDL 100-129 mg/dL Near or above optimalLDL 130-159 mg/dL Borderline highLDL 160-189 mg/dL HighLDL greater than 189 mg/dL Very high Cholesterol in VLDL Calc [Ma ss/Vol]Ordered By: Bakari White on 04-13-2024 Cholesterol in VLDL [Mass/Vol] Cholesterol in VLDL [Mass/volume] in Serum or Plasma by calculation [facility] Complete Blood Count Auto Di ffon 04-13-2024 Basophils (Bld) [#/Vol] 0.1 10*3/uL Normal 0.0-0.2 [facility] Comment on above: Order Comment: Reaso n for Exam Morbid (severe) obesity due to excess calories;Body mass ind Result Comment: PERF ORMED BY: [place] [address] PATHOLOGIST [employer] TECHNICIAN CHARLY JOSHI M.D. Performed By: #### P SAS, CMP, CBC, TSH3 wRFLX, LIPID #### [address] Basophils/100 WBC (Bld) 1.0 % Normal . [facility] Comment on above: Order Comment: Reaso n for Exam Morbid (severe) obesity due to excess calories;Body mass ind Performed By: #### P SAS, CMP, CBC, TSH3 wRFLX, LIPID #### [address] Eosinophils (Bld) [#/Vol] 0.2 10*3/uL Normal 0.0-0.45 [facility] Comment on above: Order Comment: Reaso n for Exam Morbid (severe) obesity due to excess calories;Body mass ind Performed By: #### P SAS, CMP, CBC, TSH3 wRFLX, LIPID #### [address] Eosinophils/100 WBC (Bld) 3.3 % Normal . [facility] Comment on above: Order Comment: Reaso n for Exam Morbid (severe) obesity due to excess calories;Body mass ind Performed By: #### P SAS, CMP, CBC, TSH3 wRFLX, LIPID #### [address] Erythrocyte distribution width (RBC) [Ratio] 14.1 % Normal 12.0-14.8 [facility] Comment on above: Order Comment: Reaso n for Exam Morbid (severe) obesity due to excess calories;Body mass ind Performed By: #### P SAS, CMP, CBC, TSH3 wRFLX, LIPID #### [address] Hematocrit (Bld) [Volume fraction] 39.4 % Normal 38.8-50.0 [facility] Comment on above: Order Comment: Reaso n for Exam Morbid (severe) obesity due to excess calories;Body mass ind Performed By: #### P SAS, CMP, CBC, TSH3 wRFLX, LIPID #### [address] Hemoglobin (Bld) [Mass/Vol] 13.1 g/dL Normal 13.0-17.0 [facility] Comment on above: Order Comment: Reaso n for Exam Morbid (severe) obesity due to excess calories;Body mass ind Performed By: #### P SAS, CMP, CBC, TSH3 wRFLX, LIPID #### [address] Lymphocytes (Bld) [#/Vol] 1.1 10*3/uL Normal 1.00-4.8 [facility] Comment on above: Order Comment: Reaso n for Exam Morbid (severe) obesity due to excess calories;Body mass ind Performed By: #### P SAS, CMP, CBC, TSH3 wRFLX, LIPID #### [address] Lymphocytes/100 WBC (Bld) 18.9 % Normal . [facility] Comment on above: Order Comment: Reaso n for Exam Morbid (severe) obesity due to excess calories;Body mass ind Performed By: #### P SAS, CMP, CBC, TSH3 wRFLX, LIPID #### [address] MCH (RBC) [Entitic mass] 28.4 pg Normal 27.5-35.2 [facility] Comment on above: Order Comment: Reaso n for Exam Morbid (severe) obesity due to excess calories;Body mass ind Performed By: #### P SAS, CMP, CBC, TSH3 wRFLX, LIPID #### [address] MCV (RBC) [Entitic vol] 85.6 fL Normal 83.5-101 [facility] Comment on above: Order Comment: Reaso n for Exam Morbid (severe) obesity due to excess calories;Body mass ind Performed By: #### P SAS, CMP, CBC, TSH3 wRFLX, LIPID #### [address] Mean Corpuscular HGB Conc 33.1 g/dL Normal 32.5-35.6 [facility] Comment on above: Order Comment: Reaso n for Exam Morbid (severe) obesity due to excess calories;Body mass ind Performed By: #### P SAS, CMP, CBC, TSH3 wRFLX, LIPID #### [address] Monocytes (Bld) [#/Vol] 0.4 10*3/uL Normal 0.0-0.8 [facility] Comment on above: Order Comment: Reaso n for Exam Morbid (severe) obesity due to excess calories;Body mass ind Performed By: #### P SAS, CMP, CBC, TSH3 wRFLX, LIPID #### [facility] [address] [place] [address] [place] Monocytes/100 WBC (Bld) 6.2 % Normal . [facility] Comment on above: Order Comment: Reaso n for Exam Morbid (severe) obesity due to excess calories;Body mass ind Performed By: #### P SAS, CMP, CBC, TSH3 wRFLX, LIPID #### [facility] [address] [place] [address] [place] Neutrophils (Bld) [#/Vol] 4.1 10*3/uL Normal 1.8-7.7 [facility] Comment on above: Order Comment: Reaso n for Exam Morbid (severe) obesity due to excess calories;Body mass ind Performed By: #### P SAS, CMP, CBC, TSH3 wRFLX, LIPID #### [place] [address] [place] Neutrophils/100 WBC (Bld) 70.6 % Normal . [facility] Comment on above: Order Comment: Reaso n for Exam Morbid (severe) obesity due to excess calories;Body mass ind Performed By: #### P SAS, CMP, CBC, TSH3 wRFLX, LIPID #### [place] [address] [place] NRBC% 0.2 /100{WBC} Normal 0-0.5 [facility] Comment on above: Order Comment: Reaso n for Exam Morbid (severe) obesity due to excess calories;Body mass ind Performed By: #### P SAS, CMP, CBC, TSH3 wRFLX, LIPID #### [facility] [address] [place] [id number] [place] Platelet mean volume (Bld) [Entitic vol] 8.2 fL Normal 6.6-10.1 [facility] Comment on above: Order Comment: Reaso n for Exam Morbid (severe) obesity due to excess calories;Body mass ind Performed By: #### P SAS, CMP, CBC, TSH3 wRFLX, LIPID #### [address] Platelets (Bld) [#/Vol] 250 10*3/uL Normal 150-450 [facility] Comment on above: Order Comment: Reaso n for Exam Morbid (severe) obesity due to excess calories;Body mass ind Performed By: #### P SAS, CMP, CBC, TSH3 wRFLX, LIPID #### [address] RBC (Bld) [#/Vol] 4.60 10*6/uL Normal 3.90-5.60 [facility] Comment on above: Order Comment: Reaso n for Exam Morbid (severe) obesity due to excess calories;Body mass ind Performed By: #### P SAS, CMP, CBC, TSH3 wRFLX, LIPID #### [address] WBC (Bld) [#/Vol] 5.8 10*3/uL Normal 4.1-10.5 [facility] Comment on above: Order Comment: Reaso n for Exam Morbid (severe) obesity due to excess calories;Body mass ind Performed By: #### P SAS, CMP, CBC, TSH3 wRFLX, LIPID #### [address] Comprehensive Metabolic Pane [facility] 04-13-2024 Albumin [Mass/Vol] 4.3 g/dL Normal 3.5-5.7 [facility] Comment on above: Order Comment: Reaso n for Exam Morbid (severe) obesity due to excess calories;Body mass ind Performed By: #### P SAS, CMP, CBC, TSH3 wRFLX, LIPID #### [address] Albumin/Globulin [Mass ratio] 1.3 {ratio} Normal [facility] Comment on above: Order Comment: Reaso n for Exam Morbid (severe) obesity due to excess calories;Body mass ind Performed By: #### P SAS, CMP, CBC, TSH3 wRFLX, LIPID #### [place] [address] [facility] ALP [Catalytic activity/Vol] 56 U/L Normal 34-104 [facility] Comment on above: Order Comment: Reaso n for Exam Morbid (severe) obesity due to excess calories;Body mass ind Performed By: #### P SAS, CMP, CBC, TSH3 wRFLX, LIPID #### [facility] [address] [place] [id number] [facility] ALT [Catalytic activity/Vol] 19 U/L Normal 7-52 [facility] Comment on above: Order Comment: Reaso n for Exam Morbid (severe) obesity due to excess calories;Body mass ind Performed By: #### P SAS, CMP, CBC, TSH3 wRFLX, LIPID #### [facility] [address] Anion gap [Moles/Vol] 11.9 mmol/L Normal 6.0-15.0 [facility] Comment on above: Order Comment: Reaso n for Exam Morbid (severe) obesity due to excess calories;Body mass ind Performed By: #### P SAS, CMP, CBC, TSH3 wRFLX, LIPID #### [facility] [address] [place] [id number] [place] AST [Catalytic activity/Vol] 19 U/L Normal 13-39 [facility] Comment on above: Order Comment: Reaso n for Exam Morbid (severe) obesity due to excess calories;Body mass ind Performed By: #### P SAS, CMP, CBC, TSH3 wRFLX, LIPID #### [facility] [address] [place] [id number] [place] Bilirubin [Mass/Vol] 0.5 mg/dL Normal 0.3-1.0 [facility] Comment on above: Order Comment: Reaso n for Exam Morbid (severe) obesity due to excess calories;Body mass ind Performed By: #### P SAS, CMP, CBC, TSH3 wRFLX, LIPID #### [facility] [address] [place] [id number] [place] Calcium [Mass/Vol] 9.3 mg/dL Normal 8.6-10.3 [facility] Comment on above: Order Comment: Reaso n for Exam Morbid (severe) obesity due to excess calories;Body mass ind Performed By: #### P SAS, CMP, CBC, TSH3 wRFLX, LIPID #### [facility] [address] Chloride [Moles/Vol] 102 mmol/L Normal 98-107 [facility] Comment on above: Order Comment: Reaso n for Exam Morbid (severe) obesity due to excess calories;Body mass ind Performed By: #### P SAS, CMP, CBC, TSH3 wRFLX, LIPID #### [facility] [address] CO2 [Moles/Vol] 31.6 mmol/L High 21.0-31.0 [facility] Comment on above: Order Comment: Reaso n for Exam Morbid (severe) obesity due to excess calories;Body mass ind Performed By: #### P SAS, CMP, CBC, TSH3 wRFLX, LIPID #### [address] Creatinine [Mass/Vol] 0.86 mg/dL Normal 0.70-1.30 [facility] Comment on above: Order Comment: Reaso n for Exam Morbid (severe) obesity due to excess calories;Body mass ind Performed By: #### P SAS, CMP, CBC, TSH3 wRFLX, LIPID #### [address] GFR/1.73 sq M.predicted MDRD (S/P/Bld) [Vol rate/Area] mL/min/{1.73_m2} Normal [facility] Comment on above: Order Comment: Reaso n for Exam Morbid (severe) obesity due to excess calories;Body mass ind Performed By: #### P SAS, CMP, CBC, TSH3 wRFLX, LIPID #### [facility] [address] [place] [address] [place] Globulin (S) [Mass/Vol] 3.4 g/dL Normal [facility] Comment on above: Order Comment: Reaso n for Exam Morbid (severe) obesity due to excess calories;Body mass ind Performed By: #### P SAS, CMP, CBC, TSH3 wRFLX, LIPID #### [facility] [address] [place] [id number] [facility] Glucose [Mass/Vol] 98 mg/dL Normal 70-100 [facility] Comment on above: Order Comment: Reaso n for Exam Morbid (severe) obesity due to excess calories;Body mass ind Result Comment: [facility] Glucose Reference Range is dependent on time and content of last meal. Glucose of more than 200 mg/dL in a nonstressed, ambulatory subject supports the diagnosis of Diabetes Mellitus. ADA recommended reference range Performed By: #### P SAS, CMP, CBC, TSH3 wRFLX, LIPID #### [facility] [address] Potassium [Moles/Vol] 4.5 mmol/L Normal 3.5-5.1 [facility] Comment on above: Order Comment: Reaso n for Exam Morbid (severe) obesity due to excess calories;Body mass ind Performed By: #### P SAS, CMP, CBC, TSH3 wRFLX, LIPID #### [facility] [address] Protein [Mass/Vol] 7.7 g/dL Normal 6.4-8.9 [facility] Comment on above: Order Comment: Reaso n for Exam Morbid (severe) obesity due to excess calories;Body mass ind Performed By: #### P SAS, CMP, CBC, TSH3 wRFLX, LIPID #### [place] [address] [place] Sodium [Moles/Vol] 141 mmol/L Normal 136-145 [facility] Comment on above: Order Comment: Reaso n for Exam Morbid (severe) obesity due to excess calories;Body mass ind Performed By: #### P SAS, CMP, CBC, TSH3 wRFLX, LIPID #### [facility] [address] [place] [id number] [place] Urea nitrogen [Mass/Vol] 18 mg/dL Normal 7-25 [facility] Comment on above: Order Comment: Reaso n for Exam Morbid (severe) obesity due to excess calories;Body mass ind Performed By: #### P SAS, CMP, CBC, TSH3 wRFLX, LIPID #### [facility] [address] [place] [address] [facility] Creatinine [Mass/volume] in Serum or PlasmaOrdered By: Bakari White on 04-13-2024 Creatinine [Mass/Vol] Creatinine [Mass/v olume] in Serum or Plasma 0.70-1.30 [facility] Eosinophils Auto (Bld) [#/Vo l]Ordered By: Bakari White on 04-13-2024 Eosinophils (Bld) [#/Vol] Automated eosinophil count 0.0-0.45 [facility] Eosinophils/100 WBC Auto (Bl d)Ordered By: Bakari White on 04-13-2024 Eosinophils/100 WBC (Bld) Automated eosinophil % . [facility] Erythrocyte distribution wid th Auto (RBC) [Ratio]Ordered By: Bakari White on 04-13-2024 Erythrocyte distribution width (RBC) [Ratio] Erythrocyte distribution width [Ratio] by Automated count 12.0-14.8 [facility] Globulin Calc (S) [Mass/Vol] Ordered By: Bakari White on 04-13-2024 Globulin (S) [Mass/Vol] Serum globulin measurement by calculation (mass/volume) [facility] Glucose [Mass/volume] in Ser um or PlasmaOrdered By: Bakari White on 04-13-2024 Glucose [Mass/Vol] Glucose [Mass/volume ] in Serum or Plasma 70-100 [facility] Comment on above: ADA recommended refe rence rangeRandom Glucose Reference Range is dependent on time and content of last meal. Glucose of more than 200 mg/dL in a nonstressed, ambulatory subject supports the diagnosis of Diabetes Mellitus. Hematocrit Auto (Bld) [Volum e fraction]Ordered By: Bakari White on 04-13-2024 Hematocrit (Bld) [Volume fraction] Hematocrit [Volume Fraction] of Blood by Automated count 38.8-50.0 [facility] Hemoglobin [Mass/volume] in BloodOrdered By: Bakari White on 04-13-2024 Hemoglobin (Bld) [Mass/Vol] Hemoglobin [Mass/volume] in Blood 13.0-17.0 [facility] Leukocytes [#/volume] correc maggy for nucleated erythrocytes in Blood by Automated counOrdered By: Bakari White on 04-13-2024 WBC corrected for nucl RBC Auto (Bld) [#/Vol] Leukocytes [#/volume] corrected for nucleated erythrocytes in Blood by Automated coun 4.1-10.5 [facility] Lipid Panelon 04-13-2024 Cholesterol [Mass/Vol] 192 mg/dL Normal 140-200 Th e [facility] Comment on above: Order Comment: Reaso n for Exam Morbid (severe) obesity due to excess calories;Body mass ind Result Comment: Chol less than 200 mg/dl low risk Chol 201-239 mg/dl borderline risk Chol 240 mg/dl and greater high risk Performed By: #### P SAS, CMP, CBC, TSH3 wRFLX, LIPID #### [facility] [address] Cholesterol in HDL [Mass/Vol] 47 mg/dL Normal 23-92 [facility] Comment on above: Order Comment: Reaso n for Exam Morbid (severe) obesity due to excess calories;Body mass ind Result Comment: HDL CHOL ATP-III CLASSIFICATION Cardiovascular Risk HDL > or equal to 60 mg/dL LOW HDL < 40 mg/dL HIGH Performed By: #### P SAS, CMP, CBC, TSH3 wRFLX, LIPID #### [facility] [address] [place] [id number] [facility] Cholesterol.total/Chol esterol in HDL [Mass ratio] 4.1 {ratio} Normal <5.0 [facility] Comment on above: Order Comment: Reaso n for Exam Morbid (severe) obesity due to excess calories;Body mass ind Performed By: #### P SAS, CMP, CBC, TSH3 wRFLX, LIPID #### [facility] [address] [place] [id number] [place] LDL Cholesterol,Calculated 116 mg/dL High 0-100 [facility] Comment on above: Order [...] SAS, CMP, CBC, TSH3 wRFLX, LIPID #### [facility] [address] Triglyceride w/Reflex 147 mg/dL Normal 0-149 [facility] Comment on above: Order [...] SAS, CMP, CBC, TSH3 wRFLX, LIPID #### [facility] [address] VLDL CHOLESTEROL 29 mg/dL Normal [facility] Comment on above: Order Comment: Reaso n for Exam Morbid (severe) obesity due to excess calories;Body mass ind Performed By: #### P SAS, CMP, CBC, TSH3 wRFLX, LIPID #### [facility] [address] Lymphocytes Auto (Bld) [#/Vo l]Ordered By: Bakari White on 04-13-2024 Lymphocytes (Bld) [#/Vol] Lymphocytes [#/volume] in Blood by Automated count 1.00-4.8 [facility] Lymphocytes/100 WBC Auto (Bl d)Ordered By: Bakari White on 04-13-2024 Lymphocytes/100 WBC (Bld) Lymphocytes/100 leukocytes in Blood by Automated count . [facility] MCH Auto (RBC) [Entitic mass ]Ordered By: Bakari White on 04-13-2024 MCH (RBC) [Entitic mass] MCH [Entitic mass] by Automated count 27.5-35.2 [facility] MCHC Auto (RBC) [Mass/Vol]Or dered By: Bakari White on 04-13-2024 MCHC (RBC) [Mass/Vol] MCHC [Mass/volume] by Automated count 32.5-35.6 [facility] MCV Auto (RBC) [Entitic vol] Ordered By: Bakari White on 04-13-2024 MCV (RBC) [Entitic vol] MCV [Entitic volume] by Automated count 83.5-101 [facility] Monocytes Auto (Bld) [#/Vol] Ordered By: Bakari White on 04-13-2024 Monocytes (Bld) [#/Vol] Automated blood monocyte count 0.0-0.8 [facility] Monocytes/100 WBC Auto (Bld) Ordered By: Bakari White on 04-13-2024 Monocytes/100 WBC (Bld) Automated monocyte % . [facility] Neutrophils Auto (Bld) [#/Vo l]Ordered By: Bakari White on 04-13-2024 Neutrophils (Bld) [#/Vol] Neutrophils [#/volume] in Blood by Automated count 1.8-7.7 [facility] Neutrophils/100 WBC Auto (Bl d)Ordered By: Bakari White on 04-13-2024 Neutrophils/100 WBC (Bld) Automated neutrophil % . [facility] No Panel InformationOrdered By: Bakari White on 04-13-2024 Estimated GFR (CKD-EPI) > 60.0 mL/Min [facility] Pharmacy Creatinine Clearance (Chem N/A [facility] Nucleated erythrocytes [Pres ence] in Blood by Automated countOrdered By: Bakari White on 04-13-2024 Nucleated RBC Auto Ql (Bld) Nucleated erythrocytes [Presence] in Blood by Automated count 0-0.5 [facility] PSA Screen (Yearly Only)on 06-13-2023 PSA Screen (Yearly Only) 0.180 ng/mL Normal 0.000-4.000 [facility] Comment on above: Order Comment: Reaso n for Exam Morbid (severe) obesity due to excess calories;Body mass ind Result Comment: Matias uriarte tumor marker results determined by assays using different manufacturers or methods may not be comparable. [facility] gang miner and method: ViewReple DXI, CHEMILUMINESCENT IMMUNOASSAY. PERFORMED BY: [facility] [address] [place] [address] PATHOLOGIST [employer] PUMP TECHNICIAN CHARLY JOSHI M.D. Performed By: #### P SAS, CMP, CBC, TSH3 wRFLX, LIPID #### [facility] [address] Platelet mean volume Auto (B ld) [Entitic vol]Ordered By: Bakari White on 04-13-2024 Platelet mean volume (Bld) [Entitic vol] Platelet mean volume [Entitic volume] in Blood by Automated count 6.6-10.1 [facility] Platelets Auto (Bld) [#/Vol] Ordered By: Bakari White on 04-13-2024 Platelets (Bld) [#/Vol] Platelets [#/volume] in Blood by Automated count 150-450 [facility] Potassium [Moles/volume] in Serum or PlasmaOrdered By: Bakari White on 04-13-2024 Potassium [Moles/Vol] Potassium [Moles/v olume] in Serum or Plasma 3.5-5.1 [facility] Prostate specific Ag [Mass/v olume] in Serum or PlasmaOrdered By: Bakari White on 04-13-2024 Prostate specific Ag [Mass/Vol] Prostate specific Ag [Mass/volume] in Serum or Plasma 0.000-4.000 [facility] Comment on above: Serial tumor marker results determined by assays using different manufacturers or methods may not be comparable.[facility] gang miner and method:AirbnbEL DXI, CHEMILUMINESCENT IMMUNOASSAY. Protein [Mass/volume] in Ser um or PlasmaOrdered By: Bakari White on 04-13-2024 Protein [Mass/Vol] Protein [Mass/volume ] in Serum or Plasma 6.4-8.9 [facility] RBC Auto (Bld) [#/Vol]Ordere d By: Bakari White on 04-13-2024 RBC (Bld) [#/Vol] Erythrocytes [#/volu me] in Blood by Automated count 3.90-5.60 [facility] Serum or plasma albumin/glob ulin mass ratioOrdered By: Bakari White on 04-13-2024 Albumin/Globulin [Mass ratio] Serum or plasma albumin/globulin mass ratio [facility] Serum or plasma anion gap de terminationOrdered By: Bakari White on 04-13-2024 Anion gap [Moles/Vol] Serum or plasma an ion gap determination 6.0-15.0 [facility] Serum or plasma total choles terol/high density lipoprotein (HDL) cholesterol mass ratOrdered By: Bakari White on 04-13-2024 Cholesterol.total/Chol esterol in HDL [Mass ratio] Serum or plasma total cholesterol/high density lipoprotein (HDL) cholesterol mass rat <5.0 [facility] Sodium [Moles/volume] in Ser um or PlasmaOrdered By: Bakari White on 04-13-2024 Sodium [Moles/Vol] Sodium [Moles/volume ] in Serum or Plasma 136-145 [facility] Thyroid Stim Hormone w/Rflxo n 04-13-2024 Thyroid Stim Hormone w/Rflx 2.29 u[iU]/mL Normal 0.45-5.33 [facility] Comment on above: Order Comment: Reaso n for Exam Morbid (severe) obesity due to excess calories;Body mass ind Result Comment: PERF ORMED BY: [place] [address] PATHOLOGIST [employer] PU[employer] TECHNICIAN CHARLY JOSHI M.D. Performed By: #### P SAS, CMP, CBC, TSH3 wRFLX, LIPID #### [address] Thyrotropin [Units/volume] i n Serum or PlasmaOrdered By: Bakari White on 04-13-2024 TSH Qn Thyrotropin [Units/volume] in Serum or Plasma 0.45-5.33 [facility] Triglyceride [Mass/volume] i n Serum or PlasmaOrdered By: Bakari White on 04-13-2024 Triglyceride [Mass/Vol] Triglyceride [Mass/volume] in Serum or Plasma 0-149 [facility] Comment on above: TRIG ATP III CLASSIF ICATIONTRIG less than 150 mg/dL NormalTRIG 150-199 mg/dL Borderline highTRIG 200-500 mg/dL High TRIG greater than 500 mg/dL Very highStandard traceable to the Center for Disease Conrtrol and Prevention (CDC) test method. Urea nitrogen [Mass/volume] in Serum or PlasmaOrdered By: Bakari White on 04-13-2024 Urea nitrogen [Mass/Vol] Urea nitrogen [Mass/volume] in Serum or Plasma 12-23 [facility] WBC Auto (Bld) [#/Vol]Ordere d By: Bakari White on 04-13-2024 WBC (Bld) [#/Vol] Leukocytes [#/volume ] in Blood by Automated count 4.1-10.5 [facility] CBC AND AUTO DIFFon 05-29-20 ABSOLUTE BASOPHIL 0.0 X10E9/L Normal 0.0-0.2 [facility] Comment on above: Performed By: #### C ANAMIKA [facility], 62076-1, 1987-09 #### [facility] ([id number]) [address] [place] [address] 83447 ABSOLUTE NEUTROPHIL 2.6 X10E9/L Normal 1.5-6.6 [facility] Comment on above: Performed By: #### Leila WILLSON [facility], , 1987-09 #### [facility] ([id number]) [address] [place] [address] 87970 Basophils/100 WBC (Bld) 0.8 % Normal [facility] Comment on above: Performed By: #### Leila WILLSON [facility], 1987-09 #### [facility] ([id number]) [address] [place] [address] 42867 Eosinophils (Bld) [#/Vol] 0.1 10*3/uL Normal 0.0-0.4 [facility] Comment on above: Performed By: #### Leila WILLSON [facility], 1987-09 #### [facility] ([id number]) [address] [place] [address] 32493 Eosinophils/100 WBC (Bld) 2.8 % Normal [facility] Comment on above: Performed By: #### Leila WILLSON [facility], , 1987-09 #### [facility] ([id number]) [address] [place] [address] 74730 Erythrocyte distribution width (RBC) [Ratio] 15.4 % High 11.5-15.0 [facility] Comment on above: Performed By: #### Leila WILLSON CMP, 11074-4, 1987-09 #### [facility] ([id number]) [address] [place] [address] 50704 Hematocrit (Bld) [Volume fraction] 33.8 % Low 39-49 [facility] Comment on above: Performed By: #### Leila WILLSON [facility], , 1987-09 #### [facility] ([id number]) [address] [place] [address] 50202 Hemoglobin (Bld) [Mass/Vol] 11.0 g/dL Low 13.0-17.0 [facility] Comment on above: Performed By: #### Leila WILLSON [facility], , 1987-09 #### [facility] ([id number]) [address] [place] [address] 30677 Lymphocytes (Bld) [#/Vol] 0.7 10*3/uL Low 1.0-3.5 [facility] Comment on above: Performed By: #### Leila WILLSON CMP, , 1986-09 #### [facility] ([id number]) [address] [place] [address] 20836 Lymphocytes/100 WBC (Bld) 16.7 % Normal [facility] Comment on above: Performed By: #### Leila WILLSON CMP, , 1986-09 #### [facility] ([id number]) [address] [place] [address] 76371 MCH (RBC) [Entitic mass] 26.6 pg Low 27-34 [facility] Comment on above: Performed By: #### Leila WILLSON CMP, , 1986-09 #### [facility] ([id number]) [address] [place] [address] 30241 MCHC (RBC) [Mass/Vol] 32.4 g/dL Normal 32-36 [facility] Comment on above: Performed By: #### Leila WILLSON CMP, 44109-7, 1987-09 #### [facility] ([id number]) [address] [place] [address] 27467 MCV (RBC) [Entitic vol] 82 fL Normal 80-100 [facility] Comment on above: Performed By: #### Leila WILLSON CMP, , 1986-09 #### [facility] ([id number]) [address] [place] [address] 12228 Monocytes (Bld) [#/Vol] 0.6 10*3/uL Normal 0-0.9 [facility] Comment on above: Performed By: #### Leila WILLSON CMP, , 1986-09 #### [facility] ([id number]) [address] [place] [address] 05139 Monocytes/100 WBC (Bld) 14.4 % Normal [facility] Comment on above: Performed By: #### Leila WILLSON, CMP, , 1986-09 #### [facility] ([id number]) [address] [place] [address] 68660 Neutrophils/100 WBC (Bld) 65.3 % Normal [facility] Comment on above: Performed By: #### Leila WILLSON, CMP, , 1986-09 #### [facility] ([id number]) [address] [place] [address] 48178 Platelet mean volume (Bld) [Entitic vol] 7.6 fL Normal 7-12 [facility] Comment on above: Performed By: #### Leila WILLSON CMP, 78589-3, 1987-09 #### [facility] ([id number]) [address] [place] [address] 77826 Platelets (Bld) [#/Vol] 205 10*3/uL Normal 150-450 [facility] Comment on above: Performed By: #### Leila WILLSON, CMP, , 1986-09 #### [facility] ([id number]) [address] [place] [address] 44317 RBC COUNT 4.12 X10E12/L Normal 4.10-5.70 [facility] Comment on above: Performed By: #### Leila WILLSON, CMP, , 1986-09 #### [facility] ([id number]) [address] [place] [address] 07350 WBC (Bld) [#/Vol] 4.0 10*3/uL Normal 4.0-11.0 [facility] Comment on above: Performed By: #### Leila BCA, CMP, , 1986-09 #### [facility] ([id number]) [address] [place] [address] 94293 COMPREHENSIVE METABOLIC PANE [facility] 05-29-2023 Albumin [Mass/Vol] 4.1 g/dL Normal 3.2-5.3 [facility] Comment on above: Performed By: #### Leila WILLSON, CMP, , 1986-09 #### [facility] ([id number]) [address] [place] [address] 56241 ALP [Catalytic activity/Vol] 56 U/L Normal 39-130 [facility] Comment on above: Performed By: #### C BCA, CMP, , 1987-09 #### [facility] ([id number]) [address] [place] [address] 75501 ALT [Catalytic activity/Vol] 22 U/L Normal 0-40 [facility] Comment on above: Performed By: #### Leila BCA, CMP, , 1986-09 #### [facility] ([id number]) [address] [place] [address] 18525 Anion gap [Moles/Vol] 5 mmol/L Normal 5-15 [facility] Comment on above: Performed By: #### C BCA, CMP, , 1987-09 #### [facility] ([id number]) [address] [place] [address] 06871 AST [Catalytic activity/Vol] 25 U/L Normal 0-41 [facility] Comment on above: Performed By: #### C ANAMIKA, CMP, , 1987-09 #### [facility] ([id number]) [address] [place] [address] 70657 Bilirubin [Mass/Vol] 0.7 mg/dL Normal 0.3-1.2 [facility] Comment on above: Performed By: #### C ANAMIKA, CMP, , 1987-09 #### [facility] ([id number]) [address] [place] [address] 81362 Calcium [Mass/Vol] 8.7 mg/dL Normal 8.5-10.5 [facility] Comment on above: Performed By: #### C BCA, CMP, , 1987-09 #### [facility] ([id number]) [address] [place] [address] 01979 Chloride [Moles/Vol] 105 mmol/L Normal 98-109 [facility] Comment on above: Performed By: #### C BCA, CMP, , 1987-09 #### [facility] ([id number]) [address] [place] [address] 47395 CO2 [Moles/Vol] 29 mmol/L Normal 22-32 [facility] Comment on above: Performed By: #### C BCA, CMP, , 1987-09 #### [facility] ([id number]) [address] [place] [address] [place] [address] Creatinine [Mass/Vol] 0.93 mg/dL Normal 0.70-1.20 [facility] Comment on above: Result Comment: METH OD TRACEABLE TO IDMS STANDARD Performed By: #### C ALL WILLSON, 83245-9, 1987-09 #### [facility] ([id number]) [address] [place] [address] 91435 eGFR (CKD-EPI) NON-RACE DEPENDENT >90 Normal >59 [facility] Comment on above: Result Comment: Reported eGFR is based on the CKD-EPI 2020 equation that does not use a race coefficient. Performed By: #### C ALL WILLSON, , 1987-09 #### [facility] ([id number]) [address] [place] [address] 59428 Glucose [Mass/Vol] 108 mg/dL High 65-99 [facility] Comment on above: Performed By: #### C ALL WILLSON, , 1987-09 #### [facility] ([id number]) [address] [place] [address] 84787 Potassium [Moles/Vol] 4.3 mmol/L Normal 3.5-5.0 [facility] Comment on above: Performed By: #### C ALL WILLSON, 1987-09 #### [facility] ([id number]) [address] [place] [address] 99104 Protein [Mass/Vol] 8.3 g/dL High 6.0-8.0 [facility] Comment on above: Performed By: #### C ALL WILLSON, , 1987-09 #### [facility] ([id number]) [address] [place] [address] 52983 Sodium [Moles/Vol] 139 mmol/L Normal 134-146 [facility] Comment on above: Performed By: #### C ALL WILLSON, 1986-09 #### [facility] ([id number]) [address] [place] [address] Urea nitrogen [Mass/Vol] 13 mg/dL Normal 5-27 [facility] Comment on above: Performed By: #### C BCA, CMP, 70345-5, 1987-09 #### [facility] ([id number]) [address] [place] [address] CRP [Mass/Vol]on 05-29-2023 C REACTIVE PROTEIN 5.8 mg/dL High 0.000-0.744 [facility] Comment on above: Performed By: #### C BCA, CMP, 56105-1, 1987-09 #### [facility] ([id number]) [address] [place] [address] CT CTA CHESTon 05-29-2023 CT CTA CHEST [...] Schwartz MD on 05/29/2023 1:30 PM Fady Burrows, DO have personally reviewed the image(s) and agree with and/or edited the report Finalized by Fady St DO on 05/29/2023 2:26 PM Normal [facility] Fibrin D-dimer DDU (PPP) [Ma ss/Vol]on 05-29-2023 D DIMER 945 ng/mL DDU High <255 [facility] Comment on above: Result Comment: Results >=255ng/mL DDU: Results may be indicative of the presence of VTE. The use of the Wells score and further diagnostic tests should be considered. Elevated D-Dimer levels can also be associated with DIC, neoplasm, , trauma and liver disease. Elevated levels of rheumatoid factor may lead to an overestimation of the D-Dimer level. Performed By: #### C ANAMIKA, [facility], 76630-3, 1987-09 #### [facility] ([id number]) [address] [place] [address], [place] [address] SARS/FLU A+B/RSV by NAAT/Mol ecularon 05-29-2023 SARS/FLU [...] operators who are performing tests using either GeneParrut DX or GeneOnKure systems and is limited to laboratories that [...] repeat. Fact Sheet for Healthcare Providers: https://www.fda.gov/medi a/920752/download Fact Sheet for Patients: https://www.fda.gov/medi a/085772/download Normal [facility] Comment on above: Performed By: #### C OVFLR #### [facility] ([id number]) [address] [place] [address] 92785 XR KNEE RT 3 VWSon 3 XR [...] Samson MD on 05/29/2023 12:57 PM Normal [facility] Hgb/Hcton 03-17-2023 Hematocrit (Bld) [Volume fraction] 31.6 % Low 40.7-50.3 [facility] Comment on above: Performed By: #### H H #### [facility] [address] [place], [place] [id number] Office Equipment Technician: Elizabeth Sampson MD Hemoglobin (Bld) [Mass/Vol] 10.1 g/dL Low 13.0-17.0 [facility] Comment on above: Performed By: #### H H #### [facility] [address] [place] [address] Office Equipment Technician: Elizabeth Sampson MD OPERATIVE REPORTon 3 OPERATIVE REPORT [address] [place] [address] OPERATIVE REPORT PATIENT NAME: JÚNIOR ROWLAND : 1960 [facility] REC NO: [id number] ROOM: [facility] ACCOUNT NO: [id number] ADMIT DATE: 03/16/2023 PROVIDER: Ajay Galvan DATE [...] to go with a 32-mm patellar dome. [place] holes were placed. The knee was then [...] layer was then closed with #1 Vicryl [id number] sutures over two Hemovac drains. Vancomycin powder [...] a layered closure. AJAY GALVAN [id number] Doc#: [id number] CC: Normal [facility] MRSA, DNA, Nasalon 3 MRSA, DNA, Nasal Negative Normal NEG [facility] Comment on above: Result Comment: NEGA VE: MRSA DNA not detected by nucleic acid amplification. Results should be used as an adjunct to nosocomial control efforts to identify patients needing enhanced precautions. The test is not intended to identify patients with staphylococcal infections. Results should not be used to guide or monitor treatment for MRSA infections. Performed By: #### M RSANO #### [facility] [address] [place], [place] [id number] Office Equipment Technician: Phan Dos Santos MD [facility] [address] [place], [place] [id number] Office Equipment Technician: Elizabeth Sampson MD Basic Metabolic Profon 02-18 Anion gap [Moles/Vol] 9 mmol/L Normal -17 [facility] Comment on above: Performed By: #### B PAULETTE, CDP #### [facility] [address] [place], [place] [address] Office Equipment Technician: Elizabeth Sampson MD BUN/CRE Ratio 26 High 9-20 [facility] Comment on above: Performed By: #### B PAULETTE, CDP #### [facility] [address] [place], [place] [address] Office Equipment Technician: Elizabeth Sampson MD Calcium [Mass/Vol] 9.5 mg/dL Normal 8.6-10.4 [facility] Comment on above: Performed By: #### B PAULETTE, CDP #### [facility] [address] [place], [place] [address] Office Equipment Technician: Elizabeth Sampson MD Chloride [Moles/Vol] 102 mmol/L Normal 98-107 [facility] Comment on above: Performed By: #### B PAULETTE, CDP #### [facility] [address] [place], [place] [address] Office Equipment Technician: Elizabeth Sampson MD CO2 [Moles/Vol] 27 mmol/L Normal - [facility] Comment on above: Performed By: #### B PAULETTE, CDP #### [facility] [address] [place] [address] Office Equipment Technician: Elizabeth Sampson MD Creatinine [Mass/Vol] 0.8 mg/dL Normal 0.7-1.2 [facility] Comment on above: Performed By: #### B PAULETTE, CDP #### [facility] [address] [place] [address] Office Equipment Technician: Elizabeth Sampson MD GFR/1.73 sq M.predicted among non-blacks MDRD (S/P/Bld) [Vol rate/Area] mL/min/{1.73_m2} Normal >60 [facility] Comment on above: Result Comment: These results [...] Performed By: #### B PAULETTE, CDP #### [facility] [address] [place] [address] Office Equipment Technician: Elizabeth Sampson MD Glucose [Mass/Vol] 85 mg/dL Normal 70-99 [facility] Comment on above: Performed By: #### B PAULETTE, CDP #### [facility] [address] [place] [address] Office Equipment Technician: Elizabeth Sampson MD Potassium [Moles/Vol] 4.2 mmol/L Normal 3.7-5.3 [facility] Comment on above: Performed By: #### B PAULETTE, CDP #### [facility] [address] [place] [address] Office Equipment Technician: Elizabeth Sampson MD Sodium [Moles/Vol] 138 mmol/L Normal 135-144 [facility] Comment on above: Performed By: #### B PAULETTE, CDP #### [facility] [address] [place] [address] [place], [id number] Office Equipment Technician: Elizabeth Sampson MD Urea nitrogen [Mass/Vol] 21 mg/dL Normal 8-23 [facility] Comment on above: Performed By: #### B PAULETTE, CDP #### [facility] [address] [place], [facility] Office Equipment Technician: Elizabeth Sampson MD CBC with Diffon 02-18-2023 Abs. Basophil 0.04 k/uL Normal 0.00-0.20 [facility] Comment on above: Performed By: #### B PAULETTE, CDP #### [address] [place], [place] [address] Office Equipment Technician: Elizabeth Sampson MD Abs.Imm.Granulocyte <0.03 Normal 0.00-0.30 [facility] Comment on above: Performed By: #### B PAULETTE, CDP #### [address] [place], [place] [address] Office Equipment Technician: Elizabeth Sampson MD Abs.Neutrophil (Seg) 2.98 k/uL Normal 1.50-8.10 [facility] Comment on above: Performed By: #### B PAULETTE, CDP #### [address] [place], [facility] Office Equipment Technician: Elizabeth Sampson MD Basophils/100 WBC (Bld) 1 % Normal 0-2 [facility] Comment on above: Performed By: #### B PAULETTE, CDP #### [facility] [address] [place] [address] Dr. [place], [id number] Office Equipment Technician: Elizabeth Sampson MD Eosinophils (Bld) [#/Vol] 0.16 10*3/uL Normal 0.00-0.44 [facility] Comment on above: Performed By: #### Durga CALDWELL, CDP #### [facility] [address] [place], [id number] Office Equipment Technician: Elizabeth Sampson MD Eosinophils/100 WBC (Bld) 3 % Normal 1-4 [facility] Comment on above: Performed By: #### B PAULETTE, CDP #### [address] [place], [place] [id number] Office Equipment Technician: Elizabeth Sampson MD Erythrocyte distribution width (RBC) [Ratio] 13.5 % Normal 11.8-14.4 [facility] Comment on above: Performed By: #### B PAULETTE, CDP #### [address] [place], [place] [id number] Office Equipment Technician: Elizabeth Sampson MD Hematocrit (Bld) [Volume fraction] 39.9 % Low 40.7-50.3 [facility] Comment on above: Performed By: #### B PAULETTE, CDP #### [address] [place] [address] Office Equipment Technician: Elizabeth Sampson MD Hemoglobin (Bld) [Mass/Vol] 12.7 g/dL Low 13.0-17.0 [facility] Comment on above: Performed By: #### Durga CALDWELL, CDP #### [address] [place] [address] Office Equipment Technician: Elizabeth Sampson MD Immature granulocytes/100 WBC (Bld) 0 % Normal 0 [facility] Comment on above: Performed By: #### B PAULETTE, CDP #### [facility] [address] [place] [address] Dr. [place], [place] [id number] Office Equipment Technician: Elizabeth Sampson MD Lymphocytes (Bld) [#/Vol] 1.40 10*3/uL Normal 1.10-3.70 [facility] Comment on above: Performed By: #### B PAULETTE, CDP #### [address] [place] [address] Office Equipment Technician: Elizabeth Sampson MD Lymphocytes/100 WBC (Bld) 28 % Normal 24-43 [facility] Comment on above: Performed By: #### B MP, CDP #### [facility] [address] [place], [place] [id number] Office Equipment Technician: Elizabeth Sampson MD MCH (RBC) [Entitic mass] 28.0 pg Normal 25.2-33.5 [facility] Comment on above: Performed By: #### B MP, CDP #### [address] [place], [place] [id number] Office Equipment Technician: Elizabeth Sampson MD MCHC (RBC) [Mass/Vol] 31.8 g/dL Normal 28.4-34.8 [facility] Comment on above: Performed By: #### B MP, CDP #### [address] [place], [place] 8967583 Office Equipment Technician: Elizabeth Sampson MD MCV (RBC) [Entitic vol] 87.9 fL Normal 82.6-102.9 [facility] Comment on above: Performed By: #### B MP, CDP #### [address] [place], [place] 7161883 Office Equipment Technician: Elizabeth Sampson MD Monocytes (Bld) [#/Vol] 0.43 10*3/uL Normal 0.10-1.20 [facility] Comment on above: Performed By: #### B MP, CDP #### [address] [place], [place] [id number] Office Equipment Technician: Elizabeth Sampson MD Monocytes/100 WBC (Bld) 9 % Normal 3-12 [facility] Comment on above: Performed By: #### B MP, CDP #### [address] [place], [place] [id number] Office Equipment Technician: Elizabeth Sampson MD Neutrophil (Seg) 59 % Normal 36-65 [facility] Comment on above: Performed By: #### B MP, CDP #### [facility] [address] [place], [place] [id number] Office Equipment Technician: Elizabeth Sampson MD NRBC Automated 0.0 per 100 WBC Normal 0.0 [facility] Comment on above: Performed By: #### B MP, CDP #### [address] [place], [place] [id number] Office Equipment Technician: Elizabeth Samspon MD Platelet mean volume (Bld) [Entitic vol] 10.2 fL Normal 8.1-13.5 [facility] Comment on above: Performed By: #### B MP, CDP #### [address] [place], [place] [id number] Office Equipment Technician: Elizabeth Sampson MD Platelets (Bld) [#/Vol] 215 10*3/uL Normal 138-453 [facility] Comment on above: Performed By: #### B PAULETTE, CDP #### [address] [place], [place] 6707383 Office Equipment Technician: Elizabeth Sampson MD RBC (Bld) [#/Vol] 4.54 10*6/uL Normal 4.21-5.77 [facility] Comment on above: Performed By: #### B MP, CDP #### [address] [place], [place] 5495383 Office Equipment Technician: Elizabeth Sampson MD WBC (Bld) [#/Vol] 5.0 10*3/uL Normal 3.5-11.3 [facility] Comment on above: Performed By: #### B MP, CDP #### [address] [place], [place] 5093483 Office Equipment Technician: Elizabeth Sampson MD MRSA, DNA, Nasalon 3 Specimen Description .NASAL SWAB Normal [facility] Comment on above: Performed By: #### M RSANO #### [facility] [address] [place], [place] [id number] Office Equipment Technician: Phan Dos Santos MD [address] [place] [address] Office Equipment Technician: Elizabeth Sampson MD Type + Screenon 02-18-2023 Type + Screen Sample Expiration 03/19/2023,2359 Arm Band Number [id number] ABO/Rh(D) O POSITIVE Antibody Screen NEGATIVE Normal [facility] Comment on above: Performed By: #### T YS #### [address] [place] [address] Office Equipment Technician: Elizabeth Sampson MD Hemoglobin and hematocrit, b loodon 06-13-2022 Hematocrit (Bld) [Volume fraction] 33.7 % Low 40.7 - 50.3 % [facility] Hemoglobin (Bld) [Mass/Vol] 11.0 g/dL Low 13.0 - 17.0 g/dL [facility] Interpretation and review of laboratory results Abnormal [facility] Hgb/Hcton 06-13-2022 Hematocrit (Bld) [Volume fraction] 33.7 % Low 40.7-50.3 [facility] Comment on above: Performed By: #### H H #### [address] [place] [address] Office Equipment Technician: Elizabeth Sampson MD Hemoglobin (Bld) [Mass/Vol] 11.0 g/dL Low 13.0-17.0 [facility] Comment on above: Performed By: #### H H #### [address] [place] [address] Office Equipment Technician: Elizabeth Sampson MD OPERATIVE REPORTon 3 OPERATIVE REPORT [address] [place] [address] OPERATIVE REPORT PATIENT NAME: JÚNIOR ROWLAND : 1960 MED REC NO: [id number] ROOM: [facility] ACCOUNT NO: [id number] ADMIT DATE: 06/12/2022 PROVIDER: Ajay Galvan DATE [...] layer was then closed with #1 Vicryl [id number] sutures over two Hemovac drains. Remainder of [...] 10 minutes of layered closure time. AJAY GALVAN [id number] Doc#: [id number] CC: [facility] EKG 12 LeadOrdered By: Niranjan Velez on 05-13-2022 Atrial Rate 70 BPM [facility] Phone: P [place] 8 degrees [facility] Phone: P-R Interval 218 ms [facility] Phone: Q-T Interval 394 ms [facility] Phone: QRS Duration 86 ms [facility] Phone: QTc Calculation (Bazett) 425 ms [facility] Phone: R [place] 6 degrees [facility] Phone: T [place] 36 degrees [facility] Phone: Ventricular Rate 70 BPM [employer] Phone: [facility] Phone: EKG 12 Leadon 05-13-2022 Sinus rhythm with 1s t degree A-V block Otherwise normal ECG No previous ECGs available Confirmed by ELDA VELEZ ([id number]) on 05/13/2022 12:38:30 AM [facility] Elda Velez MD - 05/13/2022 Sinus rhythm with 1st degree A-V block Otherwise normal ECG No previous ECGs available Confirmed by ELDA VELEZ ([id number]) on 05/13/2022 12:38:30 AM [facility] Work Phone: MRSA DNA Probe, Nasalon 05-01 MRSA, DNA, Nasal Negative NEGATIVE [facility] Comment on above: NEGATIVE: MRSA DNA n ot detected by nucleic acid amplification. Results should be used as an adjunct to nosocomial control efforts to identify patients needing enhanced precautions. The test is not intended to identify patients with staphylococcal infections. Results should not be used to guide or monitor treatment for MRSA infections. Specimen Description .NASAL SWAB [facility] MRSA, DNA, Nasalon MRSA, DNA, Nasal Negative Normal [facility] Comment on above: Result Comment: [facility]: MRSA DNA not detected by nucleic acid amplification. Results should be used as an adjunct to nosocomial control efforts to identify patients needing enhanced precautions. The test is not intended to identify patients with staphylococcal infections. Results should not be used to guide or monitor treatment for MRSA infections. Performed By: #### M RSANO #### [facility] [address] [place] [address] Office Equipment Technician: Phan Dos Santos MD [facility] [address] [facility] [place] [address] Office Equipment Technician: Elizabeth Sampson MD Basic Metabolic Panelon 05-01 Anion gap [Moles/Vol] 9 mmol/L 9 - 17 mmol/L [facility] Calcium [Mass/Vol] 9.6 mg/dL 8.6 - 10. 4 mg/dL [facility] Chloride [Moles/Vol] 101 mmol/L 98 - 10 7 mmol/L [facility] CO2 [Moles/Vol] 26 mmol/L 20 - 31 mmol/L [facility] Creatinine [Mass/Vol] 0.86 mg/dL 0.70 - 1.20 mg/dL [facility] GFR/1.73 sq M.predicted MDRD (S/P/Bld) [Vol rate/Area] - PINF [facility] Comment on above: Effective Mar 03, 2022 [...] [Mass/Vol] 90 mg/dL 70 - 99 mg/dL [facility] Interpretation and review of laboratory results Abnormal [facility] Potassium [Moles/Vol] 3.9 mmol/L 3.7 - 5.3 mmol/L [facility] Sodium [Moles/Vol] 136 mmol/L 135 - 144 mmol/L [facility] Urea nitrogen (BldV) [Mass/Vol] 21 mg/dL 8 - 23 mg/dL [facility] Urea nitrogen/Creatinine (Bld) [Mass ratio] 24 High 9 - 20 [facility] Basic Metabolic Profon 05-12 Anion gap [Moles/Vol] 9 mmol/L Normal 9-17 [facility] Comment on above: Performed By: #### C DP, BMP #### [facility] [address] [place] [address] Office Equipment Technician: Elizabeth Sampson MD BUN/CRE Ratio 24 High 9-20 [facility] Comment on above: Performed By: #### C DP, BMP #### [facility] [address] [place] [address] Office Equipment Technician: Elizabeth Sampson MD Calcium [Mass/Vol] 9.6 mg/dL Normal 8.6-10.4 [facility] Comment on above: Performed By: #### C DP, BMP #### [facility] [address] [place], [place] [id number] Office Equipment Technician: Elizabeth Sampson MD Chloride [Moles/Vol] 101 mmol/L Normal 98-107 [facility] Comment on above: Performed By: #### C DP, BMP #### [facility] [address] [place] [id number] Office Equipment Technician: Elizabeth Sampson MD CO2 [Moles/Vol] 26 mmol/L Normal 20-31 [facility] Comment on above: Performed By: #### C DP, BMP #### [facility] [address] [place] [address] Office Equipment Technician: Elizabeth Sampson MD Creatinine [Mass/Vol] 0.86 mg/dL Normal 0.70-1.20 [facility] Comment on above: Performed By: #### C DP, BMP #### [facility] [address] [place] [address] Office Equipment Technician: Elizabeth Sampson MD GFR/1.73 sq M.predicted among non-blacks MDRD (S/P/Bld) [Vol rate/Area] mL/min/{1.73_m2} Normal >60 [facility] Comment on above: Result Comment: Effective Mar [...] Performed By: #### C DP, BMP #### [facility] [address] [place] [address] Office Equipment Technician: Elizabeth Sampson MD Glucose [Mass/Vol] 90 mg/dL Normal 70-99 [facility] Comment on above: Performed By: #### C DP, BMP #### [facility] [address] [place] [address] Office Equipment Technician: Elizabeth Sampson MD Potassium [Moles/Vol] 3.9 mmol/L Normal 3.7-5.3 [facility] Comment on above: Performed By: #### C DP, BMP #### [facility] [address] [place] [address] Office Equipment Technician: Elizabeth Sampson MD Sodium [Moles/Vol] 136 mmol/L Normal 135-144 [facility] Comment on above: Performed By: #### C DP, BMP #### [facility] [address] [place] [address] Office Equipment Technician: Elizabeth Sampson MD Urea nitrogen [Mass/Vol] 21 mg/dL Normal 8-23 [facility] Comment on above: Performed By: #### C DP, BMP #### [facility] [address] [place] [address] Office Equipment Technician: Elizabeth Sampson MD CBC with Auto Differentialon 05-12-2022 Absolute Eos # 0.19 [facility] Absolute Immature Granulocyte 0.05 [facility] Absolute Lymph # 1.73 [facility] URS [facility] Absolute [place] # 0.48 [facility] Basophils (Bld) [#/Vol] 0.04 10*3/uL [facility] Basophils/100 WBC (Bld) 0 % 0 - 2 % [facility] Eosinophils/100 WBC (Bld) 2 % 1 - 4 % [facility] Hematocrit (Bld) [Volume fraction] 42.5 % 40.7 - 50.3 % [facility] Hemoglobin (Bld) [Mass/Vol] 13.4 g/dL 13.0 - 17.0 g/dL [facility] Immature granulocytes/100 WBC (Bld) 1 % High 0 [facility] Interpretation and review of laboratory results Abnormal [facility] Lymphocytes/100 WBC (Bld) 18 % Low 24 - 43 % [facility] MCH (RBC) [Entitic mass] 28.6 pg 25.2 - 33.5 pg [facility] MCHC (RBC) [Mass/Vol] 31.5 g/dL 28.4 - 34.8 g/dL [facility] MCV (RBC) [Entitic vol] 90.8 fL 82.6 - 102.9 fL [facility] Monocytes/100 WBC (Bld) 5 % 3 - 12 % [facility] NRBC Automated 0.0 0.0 per 100 WBC [facility] Platelet distribution width (Bld) [Ratio] 13.4 % 11.8 - 14.4 % [facility] Platelet mean volume (Bld) [Entitic vol] 9.7 fL 8.1 - 13.5 fL [facility] Platelets (Bld) [#/Vol] 240 10*3/uL [facility] RBC (Bld) [#/Vol] 4.68 10*6/uL 4.21 - 5.7 7 m/uL [facility] Segmented neutrophils/100 WBC (Bld) 74 % High 36 - 65 % [facility] Segs Absolute 6.94 [facility] WBC (Bld) [#/Vol] 9.4 10*3/uL [facility] CBC with Diffon 05-12-2022 Abs. Basophil 0.04 k/uL Normal 0.00-0.20 [facility] Comment on above: Performed By: #### C DP, BMP #### [facility] [address] [place] [address] Office Equipment Technician: Elizabeth Sampson MD Abs.Imm.Granulocyte 0.05 k/uL Normal 0.00-0.30 [facility] Comment on above: Performed By: #### C DP, BMP #### [facility] [address] [place] [address] Office Equipment Technician: Elizabeth Sampson MD Abs.Neutrophil (Seg) 6.94 k/uL Normal 1.50-8.10 [facility] Comment on above: Performed By: #### C DP, BMP #### [facility] [address] [place], [id number] Office Equipment Technician: Elizabeth Sampson MD Basophils/100 WBC (Bld) 0 % Normal 0-2 [facility] Comment on above: Performed By: #### C DP, BMP #### [address] [place], [place] 9575583 Office Equipment Technician: Elizabeth Sampson MD Eosinophils (Bld) [#/Vol] 0.19 10*3/uL Normal 0.00-0.44 [facility] Comment on above: Performed By: #### C DP, BMP #### [address] [place] [address] Office Equipment Technician: Elizabeth Sampson MD Eosinophils/100 WBC (Bld) 2 % Normal 1-4 [facility] Comment on above: Performed By: #### C DP, BMP #### [address] [place], [id number] Office Equipment Technician: Elizabeth Sampson MD Erythrocyte distribution width (RBC) [Ratio] 13.4 % Normal 11.8-14.4 [facility] Comment on above: Performed By: #### C DP, BMP #### [address] [place], [id number] Office Equipment Technician: Elizabeth Sampson MD Hematocrit (Bld) [Volume fraction] 42.5 % Normal 40.7-50.3 [facility] Comment on above: Performed By: #### C DP, BMP #### [address] [place], [id number] Office Equipment Technician: Elizabeth Sampson MD Hemoglobin (Bld) [Mass/Vol] 13.4 g/dL Normal 13.0-17.0 [facility] Comment on above: Performed By: #### C DP, BMP #### [address] [place], [place] [id number] Office Equipment Technician: Elizabeth Sampson MD Immature granulocytes/100 WBC (Bld) 1 % High 0 [facility] Comment on above: Performed By: #### C DP, BMP #### [facility] [address] [place], [place] 5741883 Office Equipment Technician: Elizabeth Sampson MD Lymphocytes (Bld) [#/Vol] 1.73 10*3/uL Normal 1.10-3.70 [facility] Comment on above: Performed By: #### C DP, BMP #### [facility] [address] [place] [address] Office Equipment Technician: Elizabeth Sampson MD Lymphocytes/100 WBC (Bld) 18 % Low 24-43 [facility] Comment on above: Performed By: #### C DP, BMP #### [address] [place], [place] 0[address]83 Office Equipment Technician: Elizabeth Sampson MD MCH (RBC) [Entitic mass] 28.6 pg Normal 25.2-33.5 [facility] Comment on above: Performed By: #### C DP, BMP #### [address] [place], [place] 9418583 Office Equipment Technician: Elizabeth Sampson MD MCHC (RBC) [Mass/Vol] 31.5 g/dL Normal 28.4-34.8 [facility] Comment on above: Performed By: #### C DP, BMP #### [address] [place], [place] 4871783 Office Equipment Technician: Elizabeth Sampson MD MCV (RBC) [Entitic vol] 90.8 fL Normal 82.6-102.9 [facility] Comment on above: Performed By: #### C DP, BMP #### [address] [place] [address] Office Equipment Technician: Elizabeth Sampson MD Monocytes (Bld) [#/Vol] 0.48 10*3/uL Normal 0.10-1.20 [facility] Comment on above: Performed By: #### C DP, BMP #### [facility] [address] [place], [place] 8005983 Office Equipment Technician: Elizabeth Sampson MD Monocytes/100 WBC (Bld) 5 % Normal 3-12 [facility] Comment on above: Performed By: #### C DP, BMP #### [facility] [address] [place], [place] 1221583 Office Equipment Technician: Elizabeth Sampson MD Neutrophil (Seg) 74 % High 36-65 [facility] Comment on above: Performed By: #### C DP, BMP #### [facility] [address] [place], [place] 6028783 Office Equipment Technician: Elizabeth Sampson MD NRBC Automated 0.0 per 100 WBC Normal 0.0 [facility] Comment on above: Performed By: #### C DP, BMP #### [facility] [address] [place], [place] 0985983 Office Equipment Technician: Elizabeth Sampson MD Platelet mean volume (Bld) [Entitic vol] 9.7 fL Normal 8.1-13.5 [facility] Comment on above: Performed By: #### C DP, BMP #### [address] [place], [place] 8622183 Office Equipment Technician: Elizabeth Sampson MD Platelets (Bld) [#/Vol] 240 10*3/uL Normal 138-453 [facility] Comment on above: Performed By: #### C DP, BMP #### [facility] [address] [place], [place] 4942383 Office Equipment Technician: Elizabeth Sampson MD RBC (Bld) [#/Vol] 4.68 10*6/uL Normal 4.21-5.77 [facility] Comment on above: Performed By: #### C DP, BMP #### [facility] [address] [place] [address] Office Equipment Technician: Elizabeth Sampson MD WBC (Bld) [#/Vol] 9.4 10*3/uL Normal 3.5-11.3 [facility] Comment on above: Performed By: #### C DP, BMP #### [facility] [address] [place] [address] Office Equipment Technician: Elizabeth Sampson MD MRSA, DNA, Nasalon Specimen Description .NASAL SWAB Normal [facility] Comment on above: Performed By: #### M RSANO #### [facility] [address] [place], [place] 36[address]408 Office Equipment Technician: Phan Dos Santos MD [address] [place] [address] Office Equipment Technician: Elizabeth Sampson MD TYPE AND SCREENon 05-12-2022 ABO/Rh Positive [facility] Arm Band Number [id number] [facility] Expiration Date 06/12/2022,2358 [facility] Type + Screenon 05-12-2022 Type + Screen Sample Expiration 06/12/2022,2356 Arm Band Number [id number] ABO/Rh(D) O POSITIVE Antibody Screen NEGATIVE Normal [facility] Comment on above: Performed By: #### T YS #### [facility] [address] [place] [address] Office Equipment Technician: Elizabeth Sampson MD Albumin [Mass/volume] in Ser um or PlasmaOrdered By: Fred Diehl on 01-29-2022 Albumin [Mass/Vol] 4.1 g/dL 3.2-5.5 [facility] Basophils Auto (Bld) [#/Vol] Ordered By: PROVIDER TEMP on 01-29-2022 Basophils (Bld) [#/Vol] 0.1 10*3/uL 0.0-0.2 [facility] Basophils/100 WBC Auto (Bld) Ordered By: PROVIDER TEMP on 01-29-2022 Basophils/100 WBC (Bld) 1.0 % . [facility] Bilirubin Test strip Ql (U)O rdered By: PROVIDER TEMP on 01-29-2022 Bilirubin Ql (U) Negative Negative [facility] Blood hemoglobin measurement (mass/volume)Ordered By: PROVIDER TEMP on 01-29-2022 Hemoglobin (Bld) [Mass/Vol] 13.3 g/dL 13.0-17.0 [facility] Blood leukocytes automated c ount (number/volume)Ordered By: PROVIDER TEMP on 01-29-2022 WBC (Bld) [#/Vol] 5.2 10*3/uL 4.5-11.0 [facility] Color Auto (U)Ordered By: KEENAN RICHARDS TEMKika on 01-29-2022 Color (U) Yellow Yellow [facility] Creatinine and Glomerular fi ltration rate.predicted panel (S/P/Bld)Ordered By: Fred Diehl on 01-29-2022 Creatinine [Mass/Vol] 0.90 mg/dL 0.64-1.27 [facility] Direct bilirubin measurement Ordered By: Fred Diehl on 01-29-2022 Bilirubin.direct [Mass/Vol] 0.1 mg/dL 0.0-0.4 [facility] Eosinophils Auto (Bld) [#/Vo l]Ordered By: PROVIDER TEMP on 01-29-2022 Eosinophils (Bld) [#/Vol] 0.2 10*3/uL 0.0-0.45 [facility] Eosinophils/100 WBC Auto (Bl d)Ordered By: PROVIDER TEMP on 01-29-2022 Eosinophils/100 WBC (Bld) 3.4 % . [facility] Erythrocyte distribution wid th Auto (RBC) [Ratio]Ordered By: PROVIDER TEMP on 01-29-2022 Erythrocyte distribution width (RBC) [Ratio] 14.1 % 12.0-14.8 [facility] Estimated glomerular filtrat ion rate (GFR) non- AmericanOrdered By: Fred Diehl on 01-29-2022 GFR/1.73 sq M.predicted among non-blacks MDRD (S/P/Bld) [Vol rate/Area] > 60 mL/Min [facility] Globulin Calc (S) [Mass/Vol] Ordered By: Fred Diehl on 01-29-2022 Globulin (S) [Mass/Vol] 3.9 g/dL [facility] Hematocrit Auto (Bld) [Volum e fraction]Ordered By: PROVIDER TEMP on 01-29-2022 Hematocrit (Bld) [Volume fraction] 40.7 % 38.8-50.0 [facility] Ketones Auto test strip (U) [Mass/Vol]Ordered By: PROVIDER TEMP on 01-29-2022 Ketones (U) [Mass/Vol] Negative Negative [facility] - Chemistry and C hemistry - challengeOrdered By: Fred Diehl on 01-29-2022 Lipase [Catalytic activity/Vol] 34.0 U/L 22-51 [facility] Laboratory - Hematology and Cell countsOrdered By: PROVIDER TEMP on 01-29-2022 Nucleated RBC/100 WBC (Bld) [Ratio] 0.2 % 0-0.5 [facility] Lymphocytes Auto (Bld) [#/Vo l]Ordered By: PROVIDER TEMP on 01-29-2022 Lymphocytes (Bld) [#/Vol] 1.2 10*3/uL 1.00-4.8 [facility] Lymphocytes/100 WBC Auto (Bl d)Ordered By: PROVIDER TEMP on 01-29-2022 Lymphocytes/100 WBC (Bld) 23.8 % . [facility] MCH Auto (RBC) [Entitic mass ]Ordered By: PROVIDER TEMP on 01-29-2022 MCH (RBC) [Entitic mass] 27.9 pg 27.5-35.2 [facility] MCHC Auto (RBC) [Mass/Vol]Or dered By: PROVIDER TEMP on 01-29-2022 MCHC (RBC) [Mass/Vol] 32.7 g/dL 32.5-35.6 [facility] MCV Auto (RBC) [Entitic vol] Ordered By: PROVIDER TEMP on 01-29-2022 MCV (RBC) [Entitic vol] 85.3 fL 83.5-101 [facility] Monocytes Auto (Bld) [#/Vol] Ordered By: PROVIDER TEMP on 01-29-2022 Monocytes (Bld) [#/Vol] 0.4 10*3/uL 0.0-0.8 [facility] Monocytes/100 WBC Auto (Bld) Ordered By: PROVIDER TEMP on 01-29-2022 Monocytes/100 WBC (Bld) 7.0 % . [facility] Neutrophils Auto (Bld) [#/Vo l]Ordered By: PROVIDER TEMP on 01-29-2022 Neutrophils (Bld) [#/Vol] 3.4 10*3/uL 1.8-7.7 [facility] Neutrophils/100 WBC Auto (Bl d)Ordered By: PROVIDER TEMP on 01-29-2022 Neutrophils/100 WBC (Bld) 64.8 % . [facility] Nitrite Test strip Ql (U)Ord ered By: PROVIDER TEMP on 01-29-2022 Nitrite Ql (U) Negative Negative [facility] No Panel InformationOrdered By: Fred Diehl on 01-29-2022 Estimated GFR () > 60 mL/Min [facility] Comment on above: GFR estimated refere nce range: According to KDOQI guidelines, <60 ml/min/1.73m2 is sufficient to diagnose a patient with chronic kidney disease. Pharmacy Creatinine Clearance (Chem 139.66 [facility] Platelet mean volume Auto (B ld) [Entitic vol]Ordered By: PROVIDER TEMP on 01-29-2022 Platelet mean volume (Bld) [Entitic vol] 8.2 fL 6.6-10.1 [facility] Platelets Auto (Bld) [#/Vol] Ordered By: PROVIDER TEMP on 01-29-2022 Platelets (Bld) [#/Vol] 239 10*3/uL 150-450 [facility] Protein Auto test strip (U) [Mass/Vol]Ordered By: PROVIDER TEMP on 01-29-2022 Protein (U) [Mass/Vol] Negative Negative [facility] Protein [Mass/volume] in Ser um or PlasmaOrdered By: Fred Diehl on 01-29-2022 Protein [Mass/Vol] 8.0 g/dL 6.1-7.9 [facility] RBC Auto (Bld) [#/Vol]Ordere d By: PROVIDER TEMP on 01-29-2022 RBC (Bld) [#/Vol] 4.77 10*6/uL 3.90-5.60 [facility] Serum or plasma alanine ramesh otransferase measurement without P-5'-P (enzymatic activiOrdered By: Fred Diehl on 01-29-2022 ALT No additional P-5'-P [Catalytic activity/Vol] 25 U/L 10-60 [facility] Serum or plasma albumin/glob ulin mass ratioOrdered By: Fred Diehl on 01-29-2022 Albumin/Globulin [Mass ratio] 1.1 {ratio} [facility] Serum or plasma alkaline corrie sphatase measurement (enzymatic activity/volume)Ordered By: Fred Diehl on 01-29-2022 ALP [Catalytic activity/Vol] 53 U/L 32-92 [facility] Serum or plasma anion gap de terminationOrdered By: Fred Diehl on 01-29-2022 Anion gap [Moles/Vol] 12.0 mmol/L 6.0-15.0 [facility] Serum or plasma aspartate am inotransferase measurement (enzymatic activity/volume)Ordered By: Fred Diehl on 01-29-2022 AST [Catalytic activity/Vol] 25 U/L 10-42 [facility] Serum or plasma calcium martha urement (mass/volume)Ordered By: Fred Diehl on 01-29-2022 Calcium [Mass/Vol] 9.4 mg/dL 8.2-10.2 [facility] Serum or plasma chloride rodrick surement (moles/volume)Ordered By: Fred Diehl on 01-29-2022 Chloride [Moles/Vol] 101 mmol/L 95-114 [facility] Serum or plasma glucose martha urement (mass/volume)Ordered By: Fred Diehl on 01-29-2022 Glucose [Mass/Vol] 92 mg/dL 70-100 [facility] Comment on above: ADA recommended refe rence range Random Glucose Reference Range is dependent on time and content of last meal. Glucose of more than 200 mg/dL in a nonstressed, ambulatory subject supports the diagnosis of Diabetes Mellitus. Serum or plasma non-glucuron idated bilirubin measurement (mass/volume)Ordered By: Fred Diehl on 01-29-2022 Bilirubin.indirect [Mass/Vol] 0.7 mg/dL [facility] Serum or plasma potassium me asurement (moles/volume)Ordered By: Fred Diehl on 01-29-2022 Potassium [Moles/Vol] 3.8 mmol/L 3.5-5.1 [facility] Serum or plasma sodium measu rement (moles/volume)Ordered By: Fred Diehl on 01-29-2022 Sodium [Moles/Vol] 137 mmol/L 136-146 [facility] Serum or plasma total biliru bin measurement (mass/volume)Ordered By: Frde Diehl on 01-29-2022 Bilirubin [Mass/Vol] 0.8 mg/dL 0.3-1.2 [facility] Serum or plasma total carbon dioxide measurement (moles/volume)Ordered By: Fred Diehl on 01-29-2022 CO2 [Moles/Vol] 27.8 mmol/L 22.0-30.0 [facility] Serum or plasma urea nitroge n measurement (mass/volume)Ordered By: Fred Diehl on 01-29-2022 Urea nitrogen [Mass/Vol] 9 mg/dL 9-23 [facility] Specific gravity Auto test s trip (U) [Rel density]Ordered By: PROVIDER TEM on 01-29-2022 Specific gravity (U) [Rel density] 1.013 1.001-1.030 [facility] Urine clarity by refractomet ry automatedOrdered By: PROVIDER TEMP on 01-29-2022 Clarity Refractometry automated (U) Clear Clear [facility] Urine glucose measurement by automated test strip (mass/volume)Ordered By: PROVIDER TEMP on 01-29-2022 Glucose Auto test strip (U) [Mass/Vol] Normal mg/dL Normal [facility] Urine hemoglobin detection b y automated test stripOrdered By: PROVIDER TEMP on 01-29-2022 Hemoglobin Auto test strip Ql (U) Negative Negative [facility] Urine leukocyte esterase det ection by automated test stripOrdered By: PROVIDER TEMP on 01-29-2022 Leukocyte esterase Auto test strip Ql (U) Negative Negative [facility] Urobilinogen Auto test strip (U) [Mass/Vol]Ordered By: PROVIDER TEMP on 01-29-2022 Urobilinogen (U) [Mass/Vol] Normal mg/dL Normal [facility] pH Auto test strip (U)Ordere d By: PROVIDER TEMP on 01-29-2022 pH (U) 5.5 [pH] 5.0-9.0 [facility] MRI C-SPINE WO/W CONon 03-12 MRI C-SPINE WO/W CON [address] [place] [address] Patient: JÚNIOR ROWLAND Exam Date: 03/12/2018DOB: 1960 Gender:M : BAKARI WHITE Admission #: [id number] : Order #: [id number] HERE TO VIEW EXAM RADIOLOGY REPORT PROCEDURE: [...] Rico M.D. on 03/12/2018 at 14:46 Normal [facility] *ANAEROBIC CULTUREon 018 *ANAEROBIC CULTURE Clinical Report: (D) Specimen: SWAB Collected: 02/17/2018 15:32 Status: Final Last Updated: 02/22/2018 09:55 ISO (Final) No Anaerobes Isolated Day 5 Normal [facility] Comment on above: Performed By: #### 8 [id number] ####[facility] *BODY FLUID CULTUREon 2017 *BODY FLUID [...] <=0.5/9.5 Susceptible VANCOMYCIN (VA) 1 Susceptible Normal [facility] Comment on above: Performed By: #### 8 5499 ####[facility] Operative Reporton 8 Operative Report MR#: [id number] [facility] Pt. Name: Júnior Rowland [facility] #: [id number] Discharge Date: Birthdate: 1960 OPERATIVE REPORTDATE OF SURGERY: 11/20/2017SURGEON: Alek Mittal M.D.PATTERN GENERATOR OPERATOR: Dr. Mt Bowen.PREOPERATIVE DIAGNOSIS: Right knee septic bursitis with right knee woundmeasuring 9 x 3 cm.POSTOPERATIVE DIAGNOSIS: Right knee septic bursitis with right knee woundmeasuring 9 x 3 cm.PROCEDURE PERFORMED:1. Removal of soft tissue stock preparation supervisor to right lower extremity.2. Irrigation and debridement of right knee wound measuring 9 x 3 cm down to the level of muscle.3. Secondary closure of right knee wound measuring 2 x 3 cm.IMPLANTS REMOVED: DermaClose soft tissue stock preparation supervisor.ANESTHESIA: General.COMPLICATIONS: None.CLINICAL SUMMARY: The patient is a [...] 11/20/2017/02:34 P/Mt Bowen M.D.Date Trans: 11/20/2017 10:12 P/mmoDN_JN:[id number] 6cc: Fatou Ridley M.D. [address] [place] [address] [facility] POC GLUCOSE LABon 11-20-2017 Glucose mass conc 95 mg/dL Normal 70-[address] [facility] Comment on above: Performed By: #### 8 [id number] ####[facility] [facility] [place] [address], [facility] APTTon 11-19-2017 aPTT Coag time (Bld) 31.4 s Normal 25.0-35.[address] [facility] Comment on above: Result Comment: ALL RESULTS [...] THIS PURPOSE. Performed By: #### 5 6101 ####[facility] [facility] [place] [place] [address], [facility] BASIC METABOLIC PANELon 10-31 Calcium mass conc 9.8 mg/dL Normal 8.6-10.[address] [facility] Comment on above: Performed By: #### 5 6101 ####[facility] [place] [address], [facility] Chloride molar conc 100 mmol/L Normal 98-[address] [facility] Comment on above: Performed By: #### 5 6101 ####[facility] [place] [address], [facility] CO2 molar conc 29 mmol/L Normal 21-[address] [facility] Comment on above: Performed By: #### 5 6101 ####[facility] [place] [address], [facility] Creatinine mass conc 0.99 mg/dL Normal 0.70-1.[address] [facility] Comment on above: Performed By: #### 5 6101 ####[facility] [place] [address], [facility] GFR/1.73 sq M predicted among blacks MDRD vol rate/area (S/P/Bld) mL/min/{1.73_m2} Normal >[address] [facility] Comment on above: Performed By: #### 5 6101 ####[facility] [place] [address], [facility] GFR/1.73 sq M predicted among non-blacks MDRD vol rate/area (S/P/Bld) mL/min/{1.73_m2} Normal >[address] [facility] Comment on above: Performed By: #### 5 6101 ####[facility] [place] [address], [facility] Glucose mass conc 92 mg/dL Normal 70-[address] [facility] Comment on above: Performed By: #### 5 6101 ####[facility] [place] [address], [facility] Potassium molar conc 4.4 mmol/L Normal 3.5-5.[address] [facility] Comment on above: Performed By: #### 5 6101 ####[facility] [place] [address], [place] Sodium molar conc 136 mmol/L Normal 136-[address] [facility] Comment on above: Performed By: #### 5 6101 ####[facility] [place] [address], [place] Urea nitrogen mass conc 16 mg/dL Normal 7-[address] [facility] Comment on above: Performed By: #### 5 6101 ####[facility] [facility].[address] CBC W/DIFFon 11-19-2017 ABS BASOPHILS 0.1 10*3/uL Normal 0.0-0.[address] [facility] Comment on above: Performed By: #### 5 6101 ####[facility] ABS IMM GRANS 0.1 10*3/uL Normal 0.0-0.[address] [facility] Comment on above: Performed By: #### 5 6101 ####[facility] ABS NEUTROPHILS 3.3 10*3/uL Normal 1.6-7.[address] [facility] Comment on above: Performed By: #### 5 6101 ####[facility] Basophils Auto #/vol (Bld) 0.9 % Normal 0.0-1.[address] [facility] Comment on above: Performed By: #### 5 6101 ####[facility] Eosinophils Auto #/vol (Bld) 0.1 10*3/uL Normal 0.0-0.[address] [facility] Comment on above: Performed By: #### 5 6101 ####[facility] Eosinophils/100 WBC Auto (Bld) 2.5 % Normal 0.0-6.[address] [facility] Comment on above: Performed By: #### 5 6101 ####[facility] Erythrocyte distribution width Auto Ratio (RBC) 14.1 % Normal 11.5-15.[address] [facility] Comment on above: Performed By: #### 5 6101 ####[facility] Hematocrit Auto Volume Fraction (Bld) 33.5 % Low 39.0-50.[address] [facility] Comment on above: Performed By: #### 5 6101 ####[facility] Hemoglobin mass conc (Bld) 10.4 g/dL Low 13.0-17.[address] [facility] Comment on above: Performed By: #### 5 1 ####[address] IMMATURE GRANS 1.6 % High 0.0-1.[address] [facility] Comment on above: Performed By: #### 5 6100 ####[address] Lymphocytes Auto #/vol (Bld) 1.6 10*3/uL Normal 1.2-4.[address] [facility] Comment on above: Performed By: #### 5 6101 ####[address] Lymphocytes/100 WBC Auto (Bld) 28.7 % Normal 20.0-45.[address] [facility] Comment on above: Performed By: #### 5 6101 ####[address] MCH Auto Entitic mass (RBC) 27.4 pg Normal 27.0-33.[address] [facility] Comment on above: Performed By: #### 5 6101 ####[address] MCHC Auto mass conc (RBC) 31.0 g/dL Low 32.0-35.[address] [facility] Comment on above: Performed By: #### 5 610 ####[facility] [facility].[address] MCV Auto Entitic volume (RBC) 88.2 fL Normal 82.0-98.[address] [facility] Comment on above: Performed By: #### 5 610 ####[facility] [facility].[address] Monocytes Auto #/vol (Bld) 0.4 10*3/uL Normal 0.1-1.[address] [facility] Comment on above: Performed By: #### 5 6100 ####[facility] MONOS 7.7 % Normal 5.0-12.[address] [facility] Comment on above: Performed By: #### 5 6100 ####[facility] [facility].[address] Neutrophils/100 WBC Auto (Bld) 58.6 % Normal 40.0-72.[address] [facility] Comment on above: Performed By: #### 5 6100 ####[place] [address] [facility].[address] Nucleated RBC/100 WBC Ratio (Bld) 0 % Normal 0-[address] [facility] Comment on above: Performed By: #### 5 6100 ####[facility] [facility].[address] PLAT CNT 455 10*3/uL High 150-[address] [facility] Comment on above: Performed By: #### 5 610 ####[facility] [facility].[address] RBC Auto #/vol (Bld) 3.80 10*6/uL Low 4.20-5.[address] [facility] Comment on above: Performed By: #### 5 6100 ####[facility] [facility].[address] WBC Auto #/vol (Bld) 5.68 10*3/uL Normal 4.00-10.[address] [facility] Comment on above: Performed By: #### 5 6101 ####[place] [address] [facility].[address] PROTHROMBIN TIMEon 8 INR Coag RelTime (PPP) 1.09 {INR} Normal 0.91-1.[address] [facility] Comment on above: Result Comment: ACCC P RECOMMENDED INR FOR WARFARIN THERAPY CONDITION INRPROPHYLAXIS OF VENOUS THROMBOSIS 2-3(HIGH-RISK SURGERY)TREATMENT OF VENOUS THROMBOSIS 2-3TREATMENT OF PULMONARY EMBOLISM 2-3PREVENTION OF SYSTEMIC EMBOLISM: 2-3 ACUTE MYOCARDIAL INFARCTION TISSUE HEART VALVES VALVULAR HEART DISEASE ATRIAL FIBRILLATION RECURRENT SYSTEMIC EMBOLISMMECHANICAL HEART VALVE 2.5-3.5 FROM: ORAL ANTICOAGULANTS. MECHANISM OF ACTION, CLINICALEFFECTIVENESS, AND OPTIMAL THERAPEUTIC RANGE. [id number]. Performed By: #### 5 6101 ####[facility] [facility].[address] Prothrombin time (PT) Coag time (PPP) 14.1 s Normal 12.3-14.[address] [facility] Comment on above: Result Comment: ALL RESULTS MUST BE INTERPRETED WITH RESPECT TO BLOOD DRAWING ARTIFACTOR DILUTION ERROR OF ANTICOAGULANT AT THE TIME OF SAMPLING. Performed By: #### 5 6101 ####[facility] [place], [place] [address] [place] [address] Discharge Summaryon 11-19-19 18 Discharge Summary MR#: [id number] [facility]ior Row[facility] Admitted: 11/02/2017 Discharged: 11/12/2017 Date of : 1960 Physician: Alek Mittal M.D. DISCHARGE SUMMARYPRINCIPAL DIAGNOSES:1. Right knee septic bursitis.2. Morbid obesity.CONSULTS:1. Pain management.2. Infectious Disease.HOSPITAL COURSE: This is a 57-year-old male who presented to [facility] as atransfer from [facility] with complaint of right knee septicbursitis. At [place], he underwent irrigation and debridement. Culturesobtained at that time were positive for MRSA. The patient was started onIV vancomycin during his hospital stay. His symptoms continued to persist,so he was transferred to [facility] for further management. He underwent rightknee irrigation [...] personal documentation from me. Date Dict: 11/17/2017/02:30 P/Yasmine Odonnell Trans: 11/17/2017 11:45 P/AmparoN_JN:[id number] 0cc: Fatou Ridley M.D. [address] [place] [address] Kristie Tamayo [address] [place] [address] [address] [place] [address] [facility] Operative Reporton 8 Operative Report MR#: [id number] [facility] Room #: 4AB [id number] Discharge Date: Birthdate: 1960 OPERATIVE REPORTDATE OF [...] is a 57[facility]ist[facility] had [...] extubated without incident. He was transferred to [facility] in stable condition for postoperative monitoring.POSTOPERATIVE PLAN: The patient will be weightbearing as tolerated to theright lower extremity. He will maintain his dressing until his follow upin 1 week. He will be discharged home with Bactrim, [place], and a stoolsoftener. We will plan on seeing the patient back in 1 week for woundevaluation and tensioning of the DermaClose device. The patient wasinstructed to call Dr. Mittal's office or the Orthopedic Surgeryresident promotions manager with any questions or concerns prior to his followupappointment.Dr. Mittal was present throughout the entirety of the procedure.Electronically Signed by:Alek Mittal M.D. 11/14/2017 01:06 P Alek Mittal M.D. I was present for the entire procedure. Date Dict: 11/11/2017/02:42 P/Maude Espinal, MDDate Trans: 11/12/2017 12:38 A/[id number]_JN:[id number]: Fatou Ridley M.D. [address] [place] [address] [place], [address] [facility] [address] [place] [address] [facility] *ANAEROBIC CULTUREon 018 *ANAEROBIC CULTURE Clinical Report: (D) Specimen/Source: SWAB/INTRAOP SPEC Collected: 11/11/2017 14:30 Status: Final Last Updated: 11/16/2017 08:46 (1) 2. Right knee swab. CULT RES (Final) No Anaerobes Isolated [address] [facility] Comment on above: Order Comment: No: D o not add to previous draw Performed By: #### 5 6101 ####[facility] *ANAEROBIC CULTURE Clinical Report: (D) Specimen/Source: FLUID/INTRAOP SPEC Collected: 11/11/2017 14:29 Status: Final Last Updated: 11/16/2017 08:46 (1) 1. Right knee aspiration. CULT RES (Final) No Anaerobes Isolated [address] [facility] Comment on above: Order Comment: No: D o not add to previous draw Performed By: #### 5 6101 ####[facility] *BODY FLUID CULTUREon 2017 *BODY FLUID CULTURE Clinical Report: (D) Specimen/Source: FLUID/INTRAOP SPEC Collected: 11/11/2017 14:29 Status: Final Last Updated: 11/16/2017 09:06 (1) 1. Right knee aspiration. GRAM (Final) No Polys Seen No Bacteria Seen CYTOSPUN (Final) This Gram Stain was done on a cytocentrifuged specimen CULT RES (Final) No Growth Day [address] [facility] Comment on above: Order Comment: No: D o not add to previous draw Performed By: #### 5 6101 ####[facility] *FUNGAL CULTUREon 11-11-2017 *FUNGAL CULTURE Clinical Report: (D) Specimen/Source: FLUID/INTRAOP SPEC Collected: 11/11/2017 14:29 Status: Final Last Updated: 12/14/2017 15:51 (1) 1. Right knee aspiration. FS (Final) No Yeast or Fungal Elements Seen CULT RES (Final) Culture negative for fungus Normal [facility] Comment on above: Order Comment: No: D o not add to previous draw Performed By: #### 5 6101 ####[facility] *WOUND CULTUREon 11-11-2017 *WOUND CULTURE Clinical Report: (D) Specimen/Source: WOUND/INTRAOP SPEC Collected: 11/11/2017 14:30 Status: Final Last Updated: 11/16/2017 09:07 (1) 2. Right knee swab. GRAM (Final) Rare Polys No Bacteria Seen CULT RES (Final) No Growth Day [address] [facility] Comment on above: Order Comment: 2. Ri ght knee swab. Performed By: #### 6 2586 ####[facility] POC GLUCOSE LABon 11-11-2017 Glucose mass conc 114 mg/dL High 70-[address] [facility] Comment on above: Performed By: #### 6 2586 ####[facility] [place] [address], [facility] BASIC METABOLIC PANELon 06- Calcium mass conc 8.6 mg/dL Normal 8.6-10.[address] [facility] Comment on above: Order Comment: No: D o not add to previous draw Performed By: #### 6 2586 ####[facility] [place] [address], [place] Chloride molar conc 100 mmol/L Normal 98-[address] [facility] Comment on above: Order Comment: No: D o not add to previous draw Performed By: #### 6 2586 ####[facility] [place] [address], [place] CO2 molar conc 33 mmol/L High 21-[address] [facility] Comment on above: Order Comment: No: D o not add to previous draw Performed By: #### 6 2586 ####[facility] [place] [address], [place] Creatinine mass conc 1.03 mg/dL Normal 0.70-1.[address] [facility] Comment on above: Order Comment: No: D o not add to previous draw Performed By: #### 6 2586 ####[facility] [place] [address], [place] GFR/1.73 sq M predicted among blacks MDRD vol rate/area (S/P/Bld) mL/min/{1.73_m2} Normal >[address] [facility] Comment on above: Order Comment: No: D o not add to previous draw Performed By: #### 6 2586 ####[facility] [place] [address], [place] GFR/1.73 sq M predicted among non-blacks MDRD vol rate/area (S/P/Bld) mL/min/{1.73_m2} Normal >[address] [facility] Comment on above: Order Comment: No: D o not add to previous draw Performed By: #### 6 2586 ####[facility] Glucose mass conc 106 mg/dL High 70-[address] [facility] Comment on above: Order Comment: No: D o not add to previous draw Performed By: #### 6 2586 ####[facility] [facility].[address] Potassium molar conc 4.0 mmol/L Normal 3.5-5.[address] [facility] Comment on above: Order Comment: No: D o not add to previous draw Performed By: #### 6 2586 ####[facility] [facility] [place] [address], [facility] Sodium molar conc 136 mmol/L Normal 136-[address] [facility] Comment on above: Order Comment: No: D o not add to previous draw Performed By: #### 6 2586 ####[facility] [facility]ATION[facility].[address] Urea nitrogen mass conc 11 mg/dL Normal 7-[address] [facility] Comment on above: Order Comment: No: D o not add to previous draw Performed By: #### 6 2586 ####[facility] [place] [address], [facility] CBC W/DIFFon 11-09-2017 ABS BASOPHILS 0.0 10*3/uL Normal 0.0-0.[address] [facility] Comment on above: Order Comment: No: D o not add to previous draw Performed By: #### 6 2586 ####[facility] [place] [address], [facility] ABS NEUTROPHILS 1.4 10*3/uL Low 1.6-7.[address] [facility] Comment on above: Order Comment: No: D o not add to previous draw Performed By: #### 6 2586 ####[facility] [place] [address], [facility] Basophils Auto #/vol (Bld) 0.0 % Normal 0.0-1.[address] [facility] Comment on above: Order Comment: No: D o not add to previous draw Performed By: #### 6 2586 ####[facility] [place] [address], [facility] Eosinophils Auto #/vol (Bld) 0.0 10*3/uL Normal 0.0-0.[address] [facility] Comment on above: Order Comment: No: D o not add to previous draw Performed By: #### 6 2586 ####[facility]3000 [facility].[address] Eosinophils/100 WBC Auto (Bld) 0.9 % Normal 0.0-6.[address] [facility] Comment on above: Order Comment: No: D o not add to previous draw Performed By: #### 6 2586 ####[facility] Erythrocyte distribution width Auto Ratio (RBC) 13.6 % Normal 11.5-15.[address] [facility] Comment on above: Order Comment: No: D o not add to previous draw Performed By: #### 6 2586 ####[facility]3000 [facility].[address] GIANT PLATELETS Present Normal [facility] Comment on above: Order Comment: No: D o not add to previous draw Performed By: #### 6 2586 ####[facility]3000 [facility].[address] Hematocrit Auto Volume Fraction (Bld) 29.2 % Low 39.0-50.[address] [facility] Comment on above: Order Comment: No: D o not add to previous draw Performed By: #### 6 2586 ####[facility] Hemoglobin mass conc (Bld) 9.2 g/dL Low 13.0-17.[address] [facility] Comment on above: Order Comment: No: D o not add to previous draw Performed By: #### 6 2586 ####[facility] [place] [address], [facility] Lymphocytes Auto #/vol (Bld) 0.7 10*3/uL Low 1.2-4.[address] [facility] Comment on above: Order Comment: No: D o not add to previous draw Performed By: #### 6 2586 ####[facility] Lymphocytes/100 WBC Auto (Bld) 30.0 % Normal 20.0-45.[address] [facility] Comment on above: Order Comment: No: D o not add to previous draw Performed By: #### 6 2586 ####[facility] MCH Auto Entitic mass (RBC) 27.7 pg Normal 27.0-33.[address] [facility] Comment on above: Order Comment: No: D o not add to previous draw Performed By: #### 6 2586 ####[facility] MCHC Auto mass conc (RBC) 31.5 g/dL Low 32.0-35.[address] [facility] Comment on above: Order Comment: No: D o not add to previous draw Performed By: #### 6 2586 ####[facility] [place] [address], [facility] MCV Auto Entitic volume (RBC) 88.0 fL Normal 82.0-98.[address] [facility] Comment on above: Order Comment: No: D o not add to previous draw Performed By: #### 6 2586 ####[facility] [place] [address], [facility] Monocytes Auto #/vol (Bld) 0.2 10*3/uL Normal 0.1-1.[address] [facility] Comment on above: Order Comment: No: D o not add to previous draw Performed By: #### 6 2586 ####[facility] [place] [address], [facility] MONOS 7.3 % Normal 5.0-12.[address] [facility] Comment on above: Order Comment: No: D o not add to previous draw Performed By: #### 6 2586 ####[facility] [place] [address], [facility] Neutrophils/100 WBC Auto (Bld) 61.8 % Normal 40.0-72.[address] [facility] Comment on above: Order Comment: No: D o not add to previous draw Performed By: #### 6 2586 ####[facility] NRBC SCAN Present Normal [facility] Comment on above: Order Comment: No: D o not add to previous draw Performed By: #### 6 2586 ####[facility] [place] [address], [facility] Nucleated RBC/100 WBC Ratio (Bld) 0 % Normal 0-[address] [facility] Comment on above: Order Comment: No: D o not add to previous draw Performed By: #### 6 2586 ####[facility] [place] [address], [facility] PLAT CNT 211 10*3/uL Normal 150-[address] [facility] Comment on above: Order Comment: No: D o not add to previous draw Performed By: #### 6 2586 ####[facility] [place] [address], [facility] RBC Auto #/vol (Bld) 3.32 10*6/uL Low 4.20-5.[address] [facility] Comment on above: Order Comment: No: D o not add to previous draw Performed By: #### 6 2586 ####[facility] WBC Auto #/vol (Bld) 2.24 10*3/uL Low 4.00-10.[address] [facility] Comment on above: Order Comment: No: D o not add to previous draw Performed By: #### 6 2586 ####[facility] *BLOOD CULTUREon 11-08-2017 *BLOOD CULTURE Clinical Report: (D) Specimen: BLOOD CULTURE Collected: 11/08/2017 17:46 Status: Final Last Updated: 11/14/2017 06:29 CULT RES (Final) No Growth Day [address] [facility] Comment on above: Performed By: #### 6 2586 ####[facility] [facility].[address] BASIC METABOLIC PANELon 10-30 Calcium mass conc 8.5 mg/dL Low 8.6-10.[address] [facility] Comment on above: Order Comment: No: D o not add to previous draw Performed By: #### 6 2586 ####[facility] [place] [address], [facility] Chloride molar conc 100 mmol/L Normal 98-[address] [facility] Comment on above: Order Comment: No: D o not add to previous draw Performed By: #### 6 2586 ####[facility] [place] [address], [facility] CO2 molar conc 33 mmol/L High 21-[address] [facility] Comment on above: Order Comment: No: D o not add to previous draw Performed By: #### 6 2586 ####[facility] [place] [address], [facility] Creatinine mass conc 0.94 mg/dL Normal 0.70-1.[address] [facility] Comment on above: Order Comment: No: D o not add to previous draw Performed By: #### 6 2586 ####[facility] [place] [address], [facility] GFR/1.73 sq M predicted among blacks MDRD vol rate/area (S/P/Bld) mL/min/{1.73_m2} Normal >[address] [facility] Comment on above: Order Comment: No: D o not add to previous draw Performed By: #### 6 2586 ####[facility] [place] [address], [facility] GFR/1.73 sq M predicted among non-blacks MDRD vol rate/area (S/P/Bld) mL/min/{1.73_m2} Normal >[address] [facility] Comment on above: Order Comment: No: D o not add to previous draw Performed By: #### 6 2586 ####[facility] [place] [address], [facility] Glucose mass conc 96 mg/dL Normal 70-[address] [facility] Comment on above: Order Comment: No: D o not add to previous draw Performed By: #### 6 2586 ####[facility] [place] [address], [facility] Potassium molar conc 4.1 mmol/L Normal 3.5-5.[address] [facility] Comment on above: Order Comment: No: D o not add to previous draw Performed By: #### 6 2586 ####[facility] [place] [address], [facility] Sodium molar conc 134 mmol/L Low 136-[address] [facility] Comment on above: Order Comment: No: D o not add to previous draw Performed By: #### 6 2586 ####[facility] Urea nitrogen mass conc 11 mg/dL Normal 7-[address] [facility] Comment on above: Order Comment: No: D o not add to previous draw Performed By: #### 6 2586 ####[facility] CBC W/DIFFon 11-08-2017 ABS BASOPHILS 0.0 10*3/uL Normal 0.0-0.[address] [facility] Comment on above: Order Comment: Yes: Add to Previous draw if able Performed By: #### 6 2586 ####[facility] ABS IMM GRANS 0.0 10*3/uL Normal 0.0-0.[address] [facility] Comment on above: Order Comment: Yes: Add to Previous draw if able Performed By: #### 6 2586 ####[facility] ABS NEUTROPHILS 1.2 10*3/uL Low 1.6-7.[address] [facility] Comment on above: Order Comment: Yes: Add to Previous draw if able Performed By: #### 6 2586 ####[facility] Basophils Auto #/vol (Bld) 0.8 % Normal 0.0-1.[address] [facility] Comment on above: Order Comment: Yes: Add to Previous draw if able Performed By: #### 6 2586 ####[facility] Eosinophils Auto #/vol (Bld) 0.1 10*3/uL Normal 0.0-0.[address] [facility] Comment on above: Order Comment: Yes: Add to Previous draw if able Performed By: #### 6 2586 ####[facility] Eosinophils/100 WBC Auto (Bld) 4.7 % Normal 0.0-6.[address] [facility] Comment on above: Order Comment: Yes: Add to Previous draw if able Performed By: #### 6 2586 ####[facility] Erythrocyte distribution width Auto Ratio (RBC) 13.7 % Normal 11.5-15.[address] [facility] Comment on above: Order Comment: Yes: Add to Previous draw if able Performed By: #### 6 2586 ####[facility]3000 [facility].[address] Hematocrit Auto Volume Fraction (Bld) 31.9 % Low 39.0-50.[address] [facility] Comment on above: Order Comment: Yes: Add to Previous draw if able Performed By: #### 6 2586 ####[facility] Hemoglobin mass conc (Bld) 9.6 g/dL Low 13.0-17.[address] [facility] Comment on above: Order Comment: Yes: Add to Previous draw if able Performed By: #### 6 2586 ####[facility] IMMATURE GRANS 1.2 % High 0.0-1.[address] [facility] Comment on above: Order Comment: Yes: Add to Previous draw if able Performed By: #### 6 2586 ####[facility] Lymphocytes Auto #/vol (Bld) 0.8 10*3/uL Low 1.2-4.[address] [facility] Comment on above: Order Comment: Yes: Add to Previous draw if able Performed By: #### 6 5996 ####[facility] [address], [facility] Lymphocytes/100 WBC Auto (Bld) 32.7 % Normal 20.0-45.[address] [facility] Comment on above: Order Comment: Yes: Add to Previous draw if able Performed By: #### 6 2586 ####[facility] MCH Auto Entitic mass (RBC) 27.6 pg Normal 27.0-33.[address] [facility] Comment on above: Order Comment: Yes: Add to Previous draw if able Performed By: #### 6 2586 ####[facility] MCHC Auto mass conc (RBC) 30.1 g/dL Low 32.0-35.[address] [facility] Comment on above: Order Comment: Yes: Add to Previous draw if able Performed By: #### 6 2586 ####[facility] MCV Auto Entitic volume (RBC) 91.7 fL Normal 82.0-98.[address] [facility] Comment on above: Order Comment: Yes: Add to Previous draw if able Performed By: #### 6 2586 ####[facility] Monocytes Auto #/vol (Bld) 0.4 10*3/uL Normal 0.1-1.[address] [facility] Comment on above: Order Comment: Yes: Add to Previous draw if able Performed By: #### 6 2586 ####[facility] MONOS 14.6 % High 5.0-12.[address] [facility] Comment on above: Order Comment: Yes: Add to Previous draw if able Performed By: #### 6 2586 ####[facility] Neutrophils/100 WBC Auto (Bld) 46.0 % Normal 40.0-72.[address] [facility] Comment on above: Order Comment: Yes: Add to Previous draw if able Performed By: #### 6 2586 ####[facility] [place] [address] Nucleated RBC/100 WBC Ratio (Bld) 0 % Normal 0-[address] [facility] Comment on above: Order Comment: Yes: Add to Previous draw if able Performed By: #### 6 2586 ####[facility] [place] [address] PLAT CNT 228 10*3/uL Normal 150-[address] [facility] Comment on above: Order Comment: Yes: Add to Previous draw if able Performed By: #### 6 2586 ####[facility] [place] [address] RBC Auto #/vol (Bld) 3.48 10*6/uL Low 4.20-5.[address] [facility] Comment on above: Order Comment: Yes: Add to Previous draw if able Performed By: #### 6 2586 ####[facility] [place] [address] WBC Auto #/vol (Bld) 2.54 10*3/uL Low 4.00-10.[address] [facility] Comment on above: Order Comment: Yes: Add to Previous draw if able Performed By: #### 6 2586 ####[facility] [place] [address] CBC W/DIFFon 11-07-2017 ABS BASOPHILS 0.0 10*3/uL Normal 0.0-0.[address] [facility] Comment on above: Order Comment: No: D o not add to previous draw Performed By: #### 0 0121 ####[facility] [place] [address] ABS IMM GRANS 0.0 10*3/uL Normal 0.0-0.[address] [facility] Comment on above: Order Comment: No: D o not add to previous draw Performed By: #### 0 0121 ####[facility] [place] [address], [facility] ABS NEUTROPHILS 1.7 10*3/uL Normal 1.6-7.[address] [facility] Comment on above: Order Comment: No: D o not add to previous draw Performed By: #### 0 0121 ####[facility] [place] [address], [facility] Basophils Auto #/vol (Bld) 0.4 % Normal 0.0-1.[address] [facility] Comment on above: Order Comment: No: D o not add to previous draw Performed By: #### 0 0121 ####[facility] [place] [address], [facility] Eosinophils Auto #/vol (Bld) 0.1 10*3/uL Normal 0.0-0.[address] [facility] Comment on above: Order Comment: No: D o not add to previous draw Performed By: #### 0 0121 ####[facility] [place] [address], [facility] Eosinophils/100 WBC Auto (Bld) 3.6 % Normal 0.0-6.[address] [facility] Comment on above: Order Comment: No: D o not add to previous draw Performed By: #### 0 0121 ####[facility] Erythrocyte distribution width Auto Ratio (RBC) 13.3 % Normal 11.5-15.[address] [facility] Comment on above: Order Comment: No: D o not add to previous draw Performed By: #### 0 0121 ####[facility] Hematocrit Auto Volume Fraction (Bld) 31.4 % Low 39.0-50.[address] [facility] Comment on above: Order Comment: No: D o not add to previous draw Performed By: #### 0 0121 ####[facility] Hemoglobin mass conc (Bld) 9.8 g/dL Low 13.0-17.[address] [facility] Comment on above: Order Comment: No: D o not add to previous draw Performed By: #### 0 0121 ####[facility] IMMATURE GRANS 1.1 % High 0.0-1.[address] [facility] Comment on above: Order Comment: No: D o not add to previous draw Performed By: #### 0 0121 ####[place] [address] Lymphocytes Auto #/vol (Bld) 0.6 10*3/uL Low 1.2-4.[address] [facility] Comment on above: Order Comment: No: D o not add to previous draw Performed By: #### 0 0121 ####[place] [address] Lymphocytes/100 WBC Auto (Bld) 21.0 % Normal 20.0-45.[address] [facility] Comment on above: Order Comment: No: D o not add to previous draw Performed By: #### 0 0121 ####[facility] MCH Auto Entitic mass (RBC) 28.0 pg Normal 27.0-33.[address] [facility] Comment on above: Order Comment: No: D o not add to previous draw Performed By: #### 0 0121 ####[facility] MCHC Auto mass conc (RBC) 31.2 g/dL Low 32.0-35.[address] [facility] Comment on above: Order Comment: No: D o not add to previous draw Performed By: #### 0 0121 ####[facility] MCV Auto Entitic volume (RBC) 89.7 fL Normal 82.0-98.[address] [facility] Comment on above: Order Comment: No: D o not add to previous draw Performed By: #### 0 0121 ####[facility] Monocytes Auto #/vol (Bld) 0.3 10*3/uL Normal 0.1-1.[address] [facility] Comment on above: Order Comment: No: D o not add to previous draw Performed By: #### 0 0121 ####[facility] MONOS 10.9 % Normal 5.0-12.[address] [facility] Comment on above: Order Comment: No: D o not add to previous draw Performed By: #### 0 0121 ####[facility] Neutrophils/100 WBC Auto (Bld) 63.0 % Normal 40.0-72.[address] [facility] Comment on above: Order Comment: No: D o not add to previous draw Performed By: #### 0 0121 ####[facility] Nucleated RBC/100 WBC Ratio (Bld) 0 % Normal 0-[address] [facility] Comment on above: Order Comment: No: D o not add to previous draw Performed By: #### 0 0121 ####[facility] PLAT CNT 237 10*3/uL Normal 150-[address] [facility] Comment on above: Order Comment: No: D o not add to previous draw Performed By: #### 0 0121 ####[facility] RBC Auto #/vol (Bld) 3.50 10*6/uL Low 4.20-5.[address] [facility] Comment on above: Order Comment: No: D o not add to previous draw Performed By: #### 0 0121 ####[facility]3000 [facility] WBC Auto #/vol (Bld) 2.76 10*3/uL Low 4.00-10.[address] [facility] Comment on above: Order Comment: No: D o not add to previous draw Performed By: #### 0 0121 ####[facility] PROCALCITONINon 11-07-2017 Protein mass conc 0.10 ng/mL Normal 0.00-0.[address] [facility] Comment on above: Order Comment: Yes: Add [...] andinitial PCT<0.5ng/mL Performed By: #### 6 2586 ####[facility] *BLOOD CULTUREon 11-06-2017 *BLOOD CULTURE Clinical Report: (D) Specimen: BLOOD CULTURE Collected: 11/06/2017 11:01 Status: Final Last Updated: 11/11/2017 15:39 CULT RES (Final) No Growth Day [address] [facility] Comment on above: Performed By: #### 0 0121 ####[address] BASIC METABOLIC PANELon Calcium mass conc 8.5 mg/dL Low 8.6-10.[address] [facility] Comment on above: Order Comment: No: D o not add to previous draw Performed By: #### 5 06, 11901 ####[place] [address] Chloride molar conc 102 mmol/L Normal 98-[address] [facility] Comment on above: Order Comment: No: D o not add to previous draw Performed By: #### 5 06, 12014 ####[place] [address] [facility].[address] CO2 molar conc 30 mmol/L Normal 21-[address] [facility] Comment on above: Order Comment: No: D o not add to previous draw Performed By: #### 5 06, 25616 ####[place] [address] [facility] [place] [address], [facility] Creatinine mass conc 0.91 mg/dL Normal 0.70-1.[address] [facility] Comment on above: Order Comment: No: D o not add to previous draw Performed By: #### 5 06, 61908 ####[place] [address] [place] [address], [facility] GFR/1.73 sq M predicted among blacks MDRD vol rate/area (S/P/Bld) mL/min/{1.73_m2} Normal >[address] [facility] Comment on above: Order Comment: No: D o not add to previous draw Performed By: #### 5 06, 74715 ####[facility] [place] [address], [facility] GFR/1.73 sq M predicted among non-blacks MDRD vol rate/area (S/P/Bld) mL/min/{1.73_m2} Normal >[address] [facility] Comment on above: Order Comment: No: D o not add to previous draw Performed By: #### 5 06, 72199 ####[place] [address] [facility] [place] [address], [facility] Glucose mass conc 99 mg/dL Normal 70-[address] [facility] Comment on above: Order Comment: No: D o not add to previous draw Performed By: #### 5 06, 61599 ####[place] [address] [facility] [place] [address], [facility] Potassium molar conc 4.1 mmol/L Normal 3.5-5.[address] [facility] Comment on above: Order Comment: No: D o not add to previous draw Performed By: #### 5 06, 08684 ####[facility] [place] [address], [facility] Sodium molar conc 137 mmol/L Normal 136-[address] [facility] Comment on above: Order Comment: No: D o not add to previous draw Performed By: #### 5 06, 02152 ####[facility] [id number], [facility] Urea nitrogen mass conc 9 mg/dL Normal 7-[address] [facility] Comment on above: Order Comment: No: D o not add to previous draw Performed By: #### 5 06, 71260 ####[facility] CBC W/DIFFon 11-06-2017 ABS BASOPHILS 0.0 10*3/uL Normal 0.0-0.[address] [facility] Comment on above: Order Comment: No: D o not add to previous draw Performed By: #### 5 0608, 93769 ####[facility] ABS IMM GRANS 0.0 10*3/uL Normal 0.0-0.[address] [facility] Comment on above: Order Comment: No: D o not add to previous draw Performed By: #### 5 0608, 62726 ####[facility] ABS NEUTROPHILS 3.9 10*3/uL Normal 1.6-7.[address] [facility] Comment on above: Order Comment: No: D o not add to previous draw Performed By: #### 5 0608, 23606 ####[address] Basophils Auto #/vol (Bld) 0.5 % Normal 0.0-1.[address] [facility] Comment on above: Order Comment: No: D o not add to previous draw Performed By: #### 5 06, 48992 ####[facility] Eosinophils Auto #/vol (Bld) 0.3 10*3/uL Normal 0.0-0.[address] [facility] Comment on above: Order Comment: No: D o not add to previous draw Performed By: #### 5 0608, 01670 ####[facility] Eosinophils/100 WBC Auto (Bld) 5.2 % Normal 0.0-6.[address] [facility] Comment on above: Order Comment: No: D o not add to previous draw Performed By: #### 5 607, 17895 ####[facility]3000 [facility].[address] Erythrocyte distribution width Auto Ratio (RBC) 13.1 % Normal 11.5-15.[address] [facility] Comment on above: Order Comment: No: D o not add to previous draw Performed By: #### 5 607, 02108 ####[facility] Hematocrit Auto Volume Fraction (Bld) 30.6 % Low 39.0-50.[address] [facility] Comment on above: Order Comment: No: D o not add to previous draw Performed By: #### 5 607, 74736 ####[address] Hemoglobin mass conc (Bld) 9.4 g/dL Low 13.0-17.[address] [facility] Comment on above: Order Comment: No: D o not add to previous draw Performed By: #### 5 607, 03345 ####[address] IMMATURE GRANS 0.3 % Normal 0.0-1.[address] [facility] Comment on above: Order Comment: No: D o not add to previous draw Performed By: #### 5 607, 71907 ####[address] Lymphocytes Auto #/vol (Bld) 1.3 10*3/uL Normal 1.2-4.[address] [facility] Comment on above: Order Comment: No: D o not add to previous draw Performed By: #### 5 607, 77359 ####[address] Lymphocytes/100 WBC Auto (Bld) 21.6 % Normal 20.0-45.[address] [facility] Comment on above: Order Comment: No: D o not add to previous draw Performed By: #### 5 06, 36583 ####[facility]3000 [facility].[address] MCH Auto Entitic mass (RBC) 27.5 pg Normal 27.0-33.[address] [facility] Comment on above: Order Comment: No: D o not add to previous draw Performed By: #### 5 607, 36657 ####[facility]3000 [facility].[address] MCHC Auto mass conc (RBC) 30.7 g/dL Low 32.0-35.[address] [facility] Comment on above: Order Comment: No: D o not add to previous draw Performed By: #### 5 607, 25199 ####[facility]3000 [facility].[address] MCV Auto Entitic volume (RBC) 89.5 fL Normal 82.0-98.[address] [facility] Comment on above: Order Comment: No: D o not add to previous draw Performed By: #### 5 607, 11767 ####[facility]3000 [facility].[address] Monocytes Auto #/vol (Bld) 0.6 10*3/uL Normal 0.1-1.[address] [facility] Comment on above: Order Comment: No: D o not add to previous draw Performed By: #### 5 607, 26615 ####[facility]3000 [facility].[address] MONOS 9.4 % Normal 5.0-12.[address] [facility] Comment on above: Order Comment: No: D o not add to previous draw Performed By: #### 5 607, 07252 ####[facility]3000 [facility].[address] Neutrophils/100 WBC Auto (Bld) 63.0 % Normal 40.0-72.[address] [facility] Comment on above: Order Comment: No: D o not add to previous draw Performed By: #### 5 0608, 14775 ####[facility] Nucleated RBC/100 WBC Ratio (Bld) 0 % Normal 0-[address] [facility] Comment on above: Order Comment: No: D o not add to previous draw Performed By: #### 5 0608, 09673 ####[facility]3000 [facility].[address] PLAT CNT 260 10*3/uL Normal 150-[address] [facility] Comment on above: Order Comment: No: D o not add to previous draw Performed By: #### 5 0608, 61239 ####[facility]3000 [facility].[address] RBC Auto #/vol (Bld) 3.42 10*6/uL Low 4.20-5.[address] [facility] Comment on above: Order Comment: No: D o not add to previous draw Performed By: #### 5 0608, 73997 ####[facility]3000 [facility].[address] WBC Auto #/vol (Bld) 6.15 10*3/uL Normal 4.00-10.[address] [facility] Comment on above: Order Comment: No: D o not add to previous draw Performed By: #### 5 0608, 13272 ####[facility]3000 [facility].[address] Consultationon 11-06-2017 Consultation MR#: [id number] Row[facility] Date of Service: 11/06/2017 Room #: 4AB [id number] Birthdate: 1960 Referring Physician: CONSULTATIONREASON FOR CONSULTATION: Fever, possible right knee bursitis/sepsis.HISTORY OF PRESENT ILLNESS: This is a 57-year-old gentleman with no pastmedical history, who [facility] The patient has right knee septic bursitis andhe underwent for I and D at [facility]. Culture from [facility] showed MRSA. The patient was transferred to [facility] to be evaluatedby Orthopedic Service. The patient [...] 09:21 A ____MYNOR Johnson, MDDate Dict: 11/06/2017/10:53 A/KAMALJIT Navaate Trans: 11/06/2017 11:40 A/AmparoN_JN:[id number] 8cc: Fatou Ridley M.D. [address] [place] [address] Kristie Tamayo DO [address] [facility] [address] [place] [address] [facility] LACTATE BLOODon 11-06-2017 Lactate molar conc 1.0 mmol/L Normal .5-2.[address] [facility] Comment on above: Order Comment: No: D o not add to previous draw Performed By: #### 0 0121 ####[facility] [address], [facility] MAGNESIUM BLOODon 11-06-2017 Magnesium mass conc 1.9 mg/dL Normal 1.9-2.[address] [facility] Comment on above: Order Comment: No: D o not add to previous draw Performed By: #### 0 0121 ####[facility] Magnesium mass conc 2.0 mg/dL Normal 1.9-2.[address] [facility] Comment on above: Performed By: #### 5 0608, 07992 ####[facility]3000 [facility].[address] Operative Reporton 8 Operative Report MR#: [id number] [facility] Row[facility] Room #: 4AB [id number] Discharge Date: Birthdate: 1960 OPERATIVE REPORTDATE OF [...] for the entire procedure. Date Dict: 11/05/2017/02:05 Kika/Mt Bowen M.D.Date Trans: 11/06/2017 01:02 Suma/Adele_JN:[id number] 2cc: Fatou Ridley M.D. [facility] [place] [address] Kristie Tamayo [address] [facility] [address] [place] [id number] Normal [facility] PHOSPHORUS BLOODon 8 Phosphate mass conc 3.0 mg/dL Normal 2.5-5.[address] [facility] Comment on above: Performed By: #### 0 0121 ####[address] PORTABLE CHEST 1 VIEWon PORTABLE CHEST 1 VIEW [facility] [address] [place] [address] ==Patient Name: JÚNIOR ROWLAND : 1960ex: MAge: Race: WhiteMRN: [id number]. Location: [id number] Status: IVisit #: [id number] Date: 11/06/2017 9:50:00 AMCompleted Date: 11/06/2017 10:37 AMRequesting Provider: GILDA HARRIS Attending Provider: ALEK MITTAL Report Copy To: Signs & Symptoms: TachycardiaHistory: Patient history not availableComments: R/O Pneumonia, abnormal RCMSExam: PORTABLE CHEST 1 VIEWAccession #: [id number] =========PORTABLE CHEST 1 VIEW 11/06/2017 10:37 AM [...] hilum. Electronically signed by:Elizabeth Serrano. Transcribed by: [email or web address], User Resident: Electronically Signed by: ELIZABETH SERRANO @ 11/06/2017 11:[address] [facility] Comment on above: Order Comment: No: D o not add to previous draw TROPONIN-Ion 11-06-2017 Troponin I.cardiac mass conc 0.01 ng/mL Normal 0.00-0.[address] [facility] Comment on above: Result Comment: REFE RENCE RANGES: 0.00 - 0.04 ng/ml NORMAL 0.05 - 0.50 ng/ml INDETERMINATE > 0.50 ng/ml CONSISTENT WITH AN M.I. Performed By: #### 0 0121 ####[facility] [address], [facility] URINALYSIS REFLEXon 11-07-19 18 APPEARANCE CLEAR Normal CLEAR [facility] Comment on above: Order Comment: No: D o not add to previous draw Performed By: #### 0 0121 ####[facility]3000 [facility] [place] [address], [facility] BILIRUBIN Negative Normal NEGATIVE [facility] Comment on above: Order Comment: No: D o not add to previous draw Performed By: #### 0 0121 ####[facility] [facility] [place] [place] [address], [facility] BLOOD SMALL Abnormal NEGATIVE [facility] Comment on above: Order Comment: No: D o not add to previous draw Performed By: #### 0 0121 ####[facility] [facility] [place] [address], [facility] COLOR YELLOW Normal YELLOW [facility] Comment on above: Order Comment: No: D o not add to previous draw Performed By: #### 0 0121 ####[facility] [facility] [place] [address], [facility] EPIS OCC Normal FEW,OCC,NON E SEEN [facility] Comment on above: Order Comment: No: D o not add to previous draw Performed By: #### 0 0121 ####[facility] [facility] [place] [address], [facility] GLUCOSE Negative Normal NEGATIVE [facility] Comment on above: Order Comment: No: D o not add to previous draw Performed By: #### 0 0121 ####[facility] [facility] [place] [address], [facility] INR Coag RelTime (Bld) 6-10 Abnormal N[address] SEEN Th e [facility] Comment on above: Order Comment: No: D o not add to previous draw Performed By: #### 0 0121 ####[facility] [facility] [place] [address], [facility] KETONE Negative Normal NEGATIVE [facility] Comment on above: Order Comment: No: D o not add to previous draw Performed By: #### 0 0121 ####[facility] [facility] [place] [address], [facility] LEUK AVTAR Negative Normal NEGATIVE [facility] Comment on above: Order Comment: No: D o not add to previous draw Performed By: #### 0 0121 ####[facility]3000 [facility].[address] MUCUS THREADS OCC Abnormal NONE SEEN [facility] Comment on above: Order Comment: No: D o not add to previous draw Performed By: #### 0 0121 ####[facility] [facility] [place] [address], [facility] NITRITE Negative Normal NEGATIVE [facility] Comment on above: Order Comment: No: D o not add to previous draw Performed By: #### 0 0121 ####[facility] PH 7.0 Normal 5.0-8.[address] [facility] Comment on above: Order Comment: No: D o not add to previous draw Performed By: #### 0 0121 ####[facility]3000 [facility].[address] Protein mass conc Negative Normal NEGATIVE [facility] Comment on above: Order Comment: No: D o not add to previous draw Performed By: #### 0 0121 ####[facility]3000 [facility].[address] SPEC GRAV 1.012 Low 1.015-1.[address] [facility] Comment on above: Order Comment: No: D o not add to previous draw Performed By: #### 0 0121 ####[facility]3000 [facility].[address] WBC UA NONE SEEN Normal NONE SEEN [facility] Comment on above: Order Comment: No: D o not add to previous draw Performed By: #### 0 0121 ####[facility] [id number] Consultationon 11-05-2017 Consultation MR#: [id number]ior Rowland Date of Service: 11/04/2017 Room #: 4AB [id number] Birthdate: 1960 Referring Physician: CONSULTATIONCONSULTING SERVICE: Orthopedics.CHIEF [...] 11/04/2017/02:30 P/Elizabeth Martin M.D.Date Trans: 11/05/2017 01:56 A/mmoDN_JN:[id number] 4cc: Fatou Ridley M.D. [address] [address] Kristie Dee Christianisidro, DO [address] [facility] [address] [facility] [address] [facility] POC GLUCOSE LABon 11-05-2017 Glucose mass conc 99 mg/dL Normal 70-[address] [facility] Comment on above: Performed By: #### 5 0608, 31270 ####[facility] VANCOMYCIN TROUGHon 11-06-19 18 VANCOMYCIN TROU 14.8 mcg/mL Normal 5.0-20.[address] [facility] Comment on above: Performed By: #### 5 0608, 44861 ####[facility] Operative Reporton 8 Operative Report MR#: [id number] [facility] Name: J[facility]ior Rowland Room #: 4AB [id number] Discharge Date: Birthdate: 1960 OPERATIVE REPORTDATE OF [...] bursitis, who underwent irrigation and debrid[facility] at [facility]. He was transferred here for further management [...] L of normal saline and Betadine. A yakayoyylq-hu-ogi dressing was placed. The wound was then [...] 11/03/2017/06:52 P/Maude Espinal, MDDate Trans: 11/03/2017 11:16 P/mmoDN_JN:[id number] 2cc: Fatou Ridley M.D. [facility] [address] Kristie Tamayo DO [address] [facility] [address] [place] [address] [facility] *ANAEROBIC CULTUREon 018 *ANAEROBIC CULTURE Clinical Report: (D) Specimen/Source: FLUID/INTRAOP SPEC Collected: 11/03/2017 18:37 Status: Final Last Updated: 11/08/2017 06:25 (1) #2 Right Knee Synovial Fluid CULT RES (Final) No Anaerobes Isolated [address] [facility] Comment on above: Order Comment: No: D o not add to previous draw Performed By: #### 5 4244, 80885 ####[place] [address] [address] *ANAEROBIC CULTURE Clinical Report: (D) Specimen/Source: TISSUE/INTRAOP SPEC Collected: 11/03/2017 18:35 Status: Final Last Updated: 11/08/2017 05:30 (1) #3 Right Knee Tissue ISO (Final) No Anaerobes Isolated Day [address] [facility] Comment on above: Order Comment: No: D o not add to previous draw Performed By: #### 5 0608, 84471 ####[facility] *ANAEROBIC CULTURE Clinical Report: (D) Specimen/Source: SWAB/INTRAOP SPEC Collected: 11/03/2017 18:30 Status: Final Last Updated: 11/08/2017 05:30 (1) #1 Right Knee swab ISO (Final) No Anaerobes Isolated Day [address] [facility] Comment on above: Order Comment: No: D o not add to previous draw Performed By: #### 5 0608, 36729 ####[facility] *BODY FLUID CULTUREon 2017 *BODY FLUID CULTURE Clinical Report: (D) Specimen/Source: FLUID/INTRAOP SPEC Collected: 11/03/2017 18:37 Status: Final Last Updated: 11/08/2017 07:01 (1) #2 Right Knee Synovial Fluid GRAM (Final) Rare Polys No Bacteria Seen CULT RES (Final) No Growth Day [address] [facility] Comment on above: Order Comment: #2 Ri ght Knee Synovial Fluid Performed By: #### 3 8808 ####[facility] *FUNGAL CULTUREon 11-03-2017 *FUNGAL CULTURE Clinical Report: (D) Specimen/Source: FLUID/INTRAOP SPEC Collected: 11/03/2017 18:37 Status: Final Last Updated: 12/04/2017 13:45 (1) #2 Right Knee Synovial Fluid FS (Final) No Yeast or Fungal Elements Seen CULT RES (Final) Culture negative for fungus Normal [facility] Comment on above: Order Comment: #2 Ri ght Knee Synovial Fluid Performed By: #### 3 8000 ####[facility] *FUNGAL CULTURE Clinical Report: (D) Specimen/Source: TISSUE/INTRAOP SPEC Collected: 11/03/2017 18:35 Status: Final Last Updated: 12/04/2017 13:45 (1) #3 Right Knee Tissue FS (Final) No Yeast or Fungal Elements Seen CULT RES (Final) Culture negative for fungus Normal [facility] Comment on above: Order Comment: No: D o not add to previous draw Performed By: #### 5 0608, 24602 ####[facility] *TISSUE CULTUREon 11-03-2017 *TISSUE CULTURE Clinical Report: (D) Specimen/Source: TISSUE/INTRAOP SPEC Collected: 11/03/2017 18:35 Status: Final Last Updated: 11/06/2017 11:22 (1) #3 Right Knee Tissue GRAM (Final) Many Polys No Bacteria Seen ISO (Final) Staphylococcus aureus Isolated from broth culture Susceptibility To Follow Normal [facility] Comment on above: Order Comment: #3 Ri ght Knee Tissue Performed By: #### 3 0338 ####[facility] *WOUND CULTUREon 11-03-2017 *WOUND CULTURE Clinical Report: [...] (Unreleased) No previously released data found. Normal [facility] Comment on above: Order Comment: #1 Ri ght Knee swab Performed By: #### 3 0343 ####[facility] C-Reactive Protein (HS)on Protein mass conc 74.31 mg/L Critically high 0.00-3.[address] [facility] Comment on above: Result Comment: Resu lts confirmed ondilution. Relative Risk for Future Cardiovascular Event Low <1.00 Average 1.00 - 3.00 High >3.00 Performed By: #### P TT, PT ####[facility] [address] [place] GRAM STAIN PRIM SOURCEon INR Coag RelTime (Bld) Final report Normal [facility] Comment on above: Performed By: #### P TT, PT ####[facility] Yonstimail[address] [place] Result 1 Comment Normal [facility] Comment on above: Result Comment: No w elio blood cells seen. Performed By: #### P TT, PT ####[facility] I[address]ks[address] [place] Result 2 No organisms seen Normal [facility] Comment on above: Performed By: #### P TT, PT ####[facility] Jsijxaxagm8375 [address] [place] POC GLUCOSE LABon 11-03-2017 Glucose mass conc 86 mg/dL Normal 70-100 [facility] Comment on above: Performed By: #### 8 5499 ####[facility] CBC AUTO DIFFon 11-02-2017 Basophils Auto #/vol (Bld) 0.0 103/ul Normal 0.0-0.1 The [facility] Comment on above: Performed By: #### P TT, PT ####[facility] [address] [place], [place] [address] D[place]ne Basophils/100 WBC Auto (Bld) 0.5 % Normal 0.2-2.0 The [facility] Comment on above: Performed By: #### P TT, PT ####[facility] [address] [place], [place] [address]Gerken [place] Eosinophils Auto #/vol (Bld) 0.3 103/ul Normal 0.0-0.7 The [facility] Comment on above: Performed By: #### P TT, PT ####[facility] [address] [place] [address] Dianne Eosinophils/100 WBC Auto (Bld) 3.8 % Normal 0.9-7.0 The [facility] Comment on above: Performed By: #### P TT, PT ####[facility] [address] [place] [address] D[place]ne Erythrocyte distribution width Auto Ratio (RBC) 13.4 % Normal 11.0-15.0 The [facility] Comment on above: Performed By: #### P TT, PT ####[facility] [address] [place], [place] [address]Gerken [place] Hematocrit Auto Volume Fraction (Bld) 32.4 % Critically low 42.0-54.0 The [facility] Comment on above: Performed By: #### P TT, PT ####[facility] [address] [place] [address] Dianne Hemoglobin mass conc (Bld) 10.2 g/dL Critically low 14.0-18.0 The [facility] Comment on above: Performed By: #### P TT, PT ####[facility] [address] [place] [address]ken [place]ne IG # 0.05 10e3/ul Critically high 0.00-0.03 The [facility] Comment on above: Performed By: #### P TT, PT ####[facility] [address] [place], [place] [address]Gerken [place] IG % 0.6 % Critically high 0.0-0.5 [facility] Comment on above: Performed By: #### P TT, PT ####[facility] [address] [place]ne Lymphocytes Auto #/vol (Bld) 1.4 103/ul Normal 1.2-3.8 The [facility] Comment on above: Performed By: #### P TT, PT ####[facility] [address] [place] [address] Dianne Lymphocytes/100 WBC Auto (Bld) 16.8 % Critically low 20.5-60.0 The [facility] Comment on above: Performed By: #### P TT, PT ####[facility] [address] [place] [address] Dianne MANUAL DIFF REQ NO Normal [facility] Comment on above: Performed By: #### P TT, PT ####[facility] [address] [place], [place] [address]Gerken [place]ne MCH Auto Entitic mass (RBC) 28.1 pg Normal 25.9-34.0 The [facility] Comment on above: Performed By: #### P TT, PT ####[facility] [address] [place], [place] [id number] Dianne MCHC Auto mass conc (RBC) 31.5 g/dL Normal 29.9-35.2 The [facility] Comment on above: Performed By: #### P TT, PT ####[facility] [address] [place], [place] [phone] Dianne MCV Auto Entitic volume (RBC) 89.3 fL Normal 80.0-94.0 The [facility] Comment on above: Performed By: #### P TT, PT ####[facility] [address] [place], [place] [address]Cylojy Dianne Monocytes Auto #/vol (Bld) 0.5 103/ul Normal 0.3-0.8 The [facility] Comment on above: Performed By: #### P TT, PT ####[facility] [address] [place] [id number] Dianne Monocytes/100 WBC Auto (Bld) 5.8 % Normal 1.7-12.0 The [facility] Comment on above: Performed By: #### P TT, PT ####[facility] Hg[address]rc[address] [place], [place] [phone] Dianne Neutrophils Auto #/vol (Bld) 6.1 103/ul Normal 1.4-6.5 The [facility] Comment on above: Performed By: #### P TT, PT ####[facility] [address] [place], [place] [phone] Dianne Neutrophils/100 WBC Auto (Bld) 72.5 % Normal 43.0-75.0 The [facility] Comment on above: Performed By: #### P TT, PT ####[facility] [address] [place], [place] [phone] Dianne Platelet mean volume Auto Entitic volume (Bld) 9.7 fL Normal 9.5-13.5 The [facility] Comment on above: Performed By: #### P TT, PT ####[facility] [address] [place], [place] [phone] Dianne Platelets Auto #/vol (Bld) 247 103/ul Normal 150-450 The [facility] Comment on above: Performed By: #### P TT, PT ####[facility] [address] [place], [place] [phone] Dianne RBC Auto #/vol (Bld) 3.63 106/ul Critically low 4.70-6.10 The [facility] Comment on above: Performed By: #### P TT, PT ####[facility] [address] [place], [place] [phone] Dianne WBC Auto #/vol (Bld) 8.4 103/ul Normal 4.0-11.0 The [facility] Comment on above: Performed By: #### P TT, PT ####[facility] [address] [place], [place] [address]BnhyeeMayur Dean CBC COMPLETE BLOOD COUNTon 0 11-02-2017 Erythrocyte distribution width Auto Ratio (RBC) 13.2 % Normal 11.5-15.[address] [facility] Comment on above: Order Comment: No: D o not add to previous draw Performed By: #### 5 0608, 02208 ####[facility] [place] [address], [facility] Hematocrit Auto Volume Fraction (Bld) 32.9 % Low 39.0-50.[address] [facility] Comment on above: Order Comment: No: D o not add to previous draw Performed By: #### 5 06, 52943 ####[facility] [facility] Hemoglobin mass conc (Bld) 10.4 g/dL Low 13.0-17.[address] [facility] Comment on above: Order Comment: No: D o not add to previous draw Performed By: #### 5 06, 73215 ####[facility] [facility] [place] [address], [facility] MCH Auto Entitic mass (RBC) 28.0 pg Normal 27.0-33.[address] [facility] Comment on above: Order Comment: No: D o not add to previous draw Performed By: #### 5 06, 40800 ####[facility] [place] [address], [facility] MCHC Auto mass conc (RBC) 31.6 g/dL Low 32.0-35.[address] [facility] Comment on above: Order Comment: No: D o not add to previous draw Performed By: #### 5 06, 66465 ####[facility] [place] [address], [facility] MCV Auto Entitic volume (RBC) 88.7 fL Normal 82.0-98.[address] [facility] Comment on above: Order Comment: No: D o not add to previous draw Performed By: #### 5 0608, 70125 ####[facility] Nucleated RBC/100 WBC Ratio (Bld) 0 % Normal 0-[address] [facility] Comment on above: Order Comment: No: D o not add to previous draw Performed By: #### 5 607, 73495 ####[facility] PLAT CNT 260 10*3/uL Normal 150-[address] [facility] Comment on above: Order Comment: No: D o not add to previous draw Performed By: #### 5 08, 72456 ####[facility] RBC Auto #/vol (Bld) 3.71 10*6/uL Low 4.20-5.[address] [facility] Comment on above: Order Comment: No: D o not add to previous draw Performed By: #### 5 08, 03429 ####[facility] WBC Auto #/vol (Bld) 7.99 10*3/uL Normal 4.00-10.[address] [facility] Comment on above: Order Comment: No: D o not add to previous draw Performed By: #### 5 0608, 48499 ####[facility] COMP METABOLIC PANELon 11-02 Albumin mass conc 3.2 g/dL Low 3.5-5.[address] [facility] Comment on above: Order Comment: No: D o not add to previous draw Performed By: #### 0 0121 ####[facility] [place] [address], [facility] ALKALINE PHOSPH 48 IU/L Normal 34-[address] [facility] Comment on above: Order Comment: No: D o not add to previous draw Performed By: #### 0 0121 ####[facility] [place] [address], [place] ALT enzyme act/vol 10 U/L Normal 7-[address] [facility] Comment on above: Order Comment: No: D o not add to previous draw Performed By: #### 0 0121 ####[facility] [place] [address], [place] AST enzyme act/vol 17 U/L Normal 13-[address] [facility] Comment on above: Order Comment: No: D o not add to previous draw Performed By: #### 0 0121 ####[facility] [place] [address], [facility] Bilirubin mass conc 0.5 mg/dL Normal 0.3-1.[address] [facility] Comment on above: Order Comment: No: D o not add to previous draw Performed By: #### 0 0121 ####[facility] [place] [address], [facility] Calcium mass conc 9.0 mg/dL Normal 8.6-10.[address] [facility] Comment on above: Order Comment: No: D o not add to previous draw Performed By: #### 0 0121 ####[facility] [place] [address], [place] Chloride molar conc 100 mmol/L Normal 98-[address] [facility] Comment on above: Order Comment: No: D o not add to previous draw Performed By: #### 0 0121 ####[facility] [place] [address], [place] CO2 molar conc 31 mmol/L Normal 21-[address] [facility] Comment on above: Order Comment: No: D o not add to previous draw Performed By: #### 0 0121 ####[facility] [place] [address], [facility] Creatinine mass conc 0.84 mg/dL Normal 0.70-1.[address] [facility] Comment on above: Order Comment: No: D o not add to previous draw Performed By: #### 0 0121 ####[facility] [place] [address], [facility] GFR/1.73 sq M predicted among blacks MDRD vol rate/area (S/P/Bld) mL/min/{1.73_m2} Normal >[address] [facility] Comment on above: Order Comment: No: D o not add to previous draw Performed By: #### 0 0121 ####[facility] [facility] [place] [address], [facility] GFR/1.73 sq M predicted among non-blacks MDRD vol rate/area (S/P/Bld) mL/min/{1.73_m2} Normal >[address] [facility] Comment on above: Order Comment: No: D o not add to previous draw Performed By: #### 0 0121 ####[facility] [facility] [place] [address], [facility] Glucose mass conc 93 mg/dL Normal 70-[address] [facility] Comment on above: Order Comment: No: D o not add to previous draw Performed By: #### 0 0121 ####[facility] [place] [address], [facility] Potassium molar conc 3.9 mmol/L Normal 3.5-5.[address] [facility] Comment on above: Order Comment: No: D o not add to previous draw Performed By: #### 0 0121 ####[facility] [place] [address], [facility] Protein mass conc 7.1 g/dL Normal 6.0-8.[address] [facility] Comment on above: Order Comment: No: D o not add to previous draw Performed By: #### 0 0121 ####[facility] [facility].[address] Sodium molar conc 138 mmol/L Normal 136-[address] [facility] Comment on above: Order Comment: No: D o not add to previous draw Performed By: #### 0 0121 ####[facility] [facility].[address] Urea nitrogen mass conc 12 mg/dL Normal 7-[address] [facility] Comment on above: Order Comment: No: D o not add to previous draw Performed By: #### 0 0121 ####[facility] [facility].[address] CRPon 11-02-2017 CRP mass conc 6.4 mg/dL Critically high <=1.0 [facility] Comment on above: Performed By: #### P TT, PT ####[facility] [address] [place], [place] [address]Fcfkfh Dianne PROTHROMBIN TIMEon 8 INR Coag RelTime (PPP) 1.14 {INR} Normal 0.91-1.[address] [facility] Comment on above: Order Comment: No: D [...] OF ACTION, CLINICALEFFECTIVENESS, AND OPTIMAL THERAPEUTIC RANGE. [id number]. Performed By: #### 5 6101 ####[facility] [place] [address], [facility] Prothrombin time (PT) Coag time (PPP) 14.6 s Normal 12.3-14.[address] [facility] Comment on above: Order Comment: No: D o not add to previous draw Result Comment: ALL RESULTS MUST BE INTERPRETED WITH RESPECT TO BLOOD DRAWING ARTIFACTOR DILUTION ERROR OF ANTICOAGULANT AT THE TIME OF SAMPLING. Performed By: #### 5 6101 ####[facility] [place] [address], [facility] SED RATE WESTERGRENon 2017 SED RATE 108 mm/hr Critically high <=20 The [facility] Comment on above: Performed By: #### P TT, PT ####[facility] [address] [place], [place] [address]Hxxgke Dianne SEDRH METHOD AND NORMAL CH NHUNG 07/06/15. RESULTS ARE NOT AFFECTED BY HEMATOCRIT. Normal The [facility] Comment on above: Performed By: #### P TT, PT ####[facility] [address] [place], [place] [address]Dcwanx Dianne SEDIMENTATION RATEon 018 SED RATE 93 mm/hr High 0-[address] [facility] Comment on above: Order Comment: No: D o not add to previous draw Performed By: #### 5 0608, 86884 ####[facility] [place] [address], [facility] TYPE AND SCREENon 11-02-2017 ABO INTERPRETATION O Normal The [facility] Comment on above: Performed By: #### 6 2586 ####[facility] [place] [address], [facility] ANTIBODY SCREEN Negative Normal The [facility] Comment on above: Performed By: #### 6 2586 ####[facility] RH INTERPRETATION Positive Normal The [facility] Comment on above: Performed By: #### 6 2586 ####[facility] [place] [address], [facility] CBC AUTO DIFFon 11-01-2017 Basophils Auto #/vol (Bld) 0.1 103/ul Normal 0.0-0.1 [facility] Comment on above: Performed By: #### P TT, PT ####[facility] [address] [place] [address] Dianne Basophils/100 WBC Auto (Bld) 0.5 % Normal 0.2-2.0 The [facility] Comment on above: Performed By: #### P TT, PT ####[facility] [address] [place] [address] Dianne Eosinophils Auto #/vol (Bld) 0.3 103/ul Normal 0.0-0.7 The [facility] Comment on above: Performed By: #### P TT, PT ####[facility] [address] [place] [address] Dianne Eosinophils/100 WBC Auto (Bld) 3.2 % Normal 0.9-7.0 The [facility] Comment on above: Performed By: #### P TT, PT ####[facility] [address] [place] [address] Dianne Erythrocyte distribution width Auto Ratio (RBC) 13.4 % Normal 11.0-15.0 The [facility] Comment on above: Performed By: #### P TT, PT ####[facility] [address] [place] [address] Dianne Hematocrit Auto Volume Fraction (Bld) 33.3 % Critically low 42.0-54.0 [facility] Comment on above: Performed By: #### P TT, PT ####[facility] [address] [place] [address] Dianne Hemoglobin mass conc (Bld) 10.3 g/dL Critically low 14.0-18.0 The [facility] Comment on above: Performed By: #### P TT, PT ####[facility] [address] [place] [address] Dianne IG # 0.06 10e3/ul Critically high 0.00-0.03 The [facility] Comment on above: Performed By: #### P TT, PT ####[facility] [address] [place] [address] Dianne IG % 0.6 % Critically high 0.0-0.5 The [facility] Comment on above: Performed By: #### P TT, PT ####[facility] [address] [place] [address] Dianne Lymphocytes Auto #/vol (Bld) 1.6 103/ul Normal 1.2-3.8 The [facility] Comment on above: Performed By: #### P TT, PT ####[facility] [address] [place] [address] Dianne Lymphocytes/100 WBC Auto (Bld) 16.4 % Critically low 20.5-60.0 The [facility] Comment on above: Performed By: #### P TT, PT ####[facility] [address] [place] [address] Dianne MANUAL DIFF REQ NO Normal The [facility] Comment on above: Performed By: #### P TT, PT ####[facility] [address] [place] [address] Dianne MCH Auto Entitic mass (RBC) 27.5 pg Normal 25.9-34.0 The [facility] Comment on above: Performed By: #### P TT, PT ####[facility] [address] [place] [address] Dianne MCHC Auto mass conc (RBC) 30.9 g/dL Normal 29.9-35.2 The [facility] Comment on above: Performed By: #### P TT, PT ####[facility] [address] [place] [address]Ibyrcs Dianne MCV Auto Entitic volume (RBC) 88.8 fL Normal 80.0-94.0 The [facility] Comment on above: Performed By: #### P TT, PT ####[facility] [address] [place] [address]Kaoola Dianne Monocytes Auto #/vol (Bld) 0.7 103/ul Normal 0.3-0.8 The [facility] Comment on above: Performed By: #### P TT, PT ####[facility] [address] [place] [address]Ibnkrs Dianne Monocytes/100 WBC Auto (Bld) 6.8 % Normal 1.7-12.0 The [facility] Comment on above: Performed By: #### P TT, PT ####[facility] [address] [place] [address]Zdmcpd Dianne Neutrophils Auto #/vol (Bld) 7.0 103/ul Critically high 1.4-6.5 The [facility] Comment on above: Performed By: #### P TT, PT ####[facility] [address] [place] [address]Elvstj Dianne Neutrophils/100 WBC Auto (Bld) 72.5 % Normal 43.0-75.0 The [facility] Comment on above: Performed By: #### P TT, PT ####[facility] [address] [place] [address]Fqurhv Dianne Platelet mean volume Auto Entitic volume (Bld) 9.6 fL Normal 9.5-13.5 The [facility] Comment on above: Performed By: #### P TT, PT ####[facility] [address] [place] [address]Lxxldw Dianne Platelets Auto #/vol (Bld) 231 103/ul Normal 150-450 The [facility] Comment on above: Performed By: #### P TT, PT ####[facility] [address] [place] [address]Svgron Dianne RBC Auto #/vol (Bld) 3.75 106/ul Critically low 4.70-6.10 The [facility] Comment on above: Performed By: #### P TT, PT ####[facility] [address] [place] [address] Dianne WBC Auto #/vol (Bld) 9.6 103/ul Normal 4.0-11.0 [facility] Comment on above: Performed By: #### P TT, PT ####[facility] [address] [place] [address] Dianne CRPon 11-01-2017 CRP mass conc 7.6 mg/dL Critically high <=1.0 The [facility] Comment on above: Performed By: #### P TT, PT ####[facility] [address] [place] [address] Dianne SED RATE WESTERGRENon 2017 SED RATE 75 mm/hr Critically high <=20 The [facility] Comment on above: Performed By: #### P TT, PT ####[facility] [address] [place] [address] Dianne SEDRH METHOD AND NORMAL CH NHUNG 07/06/15. RESULTS ARE NOT AFFECTED BY HEMATOCRIT. Normal [facility] Comment on above: Performed By: #### P TT, PT ####[facility] [address] [place] [address] Dianne CBC AUTO DIFFon 10-31-2017 Basophils Auto #/vol (Bld) 0.0 103/ul Normal 0.0-0.1 The [facility] Comment on above: Performed By: #### C BC ####[facility] [address] [place] [address] Dianne Basophils/100 WBC Auto (Bld) 0.4 % Normal 0.2-2.0 The [facility] Comment on above: Performed By: #### C BC ####[facility] [address] [place] [address] Dianne Eosinophils Auto #/vol (Bld) 0.2 103/ul Normal 0.0-0.7 The [facility] Comment on above: Performed By: #### C BC ####[facility] [address] [place], [place] [address]Jeavzp Dianne Eosinophils/100 WBC Auto (Bld) 2.2 % Normal 0.9-7.0 [facility] Comment on above: Performed By: #### C BC ####[facility] [address] [place] [address]Ialyiu Dianne Erythrocyte distribution width Auto Ratio (RBC) 13.4 % Normal 11.0-15.0 [facility] Comment on above: Performed By: #### C BC ####[facility] [address] [place] [address]Clnmhy Dianne Hematocrit Auto Volume Fraction (Bld) 33.7 % Critically low 42.0-54.0 [facility] Comment on above: Performed By: #### C BC ####[facility] [address] [place], [place] [id number] Dianne Hemoglobin mass conc (Bld) 10.7 g/dL Critically low 14.0-18.0 [facility] Comment on above: Performed By: #### C BC ####[facility] [address] [place], [place] [phone] Dianne IG # 0.07 10e3/ul Critically high 0.00-0.03 [facility] Comment on above: Performed By: #### C BC ####[facility] [address] [place], [place] [address]Gerken Dianne IG % 0.7 % Critically high 0.0-0.5 [facility] Comment on above: Performed By: #### C BC ####[facility] [address] [place] [address]Fsqwds Dianne Lymphocytes Auto #/vol (Bld) 1.4 103/ul Normal 1.2-3.8 The [facility] Comment on above: Performed By: #### C BC ####[facility] [address] [place], [place] [phone] Dianne Lymphocytes/100 WBC Auto (Bld) 13.9 % Critically low 20.5-60.0 [facility] Comment on above: Performed By: #### C BC ####[facility] [address] [place], [place] [address]Beupwp Dianne MANUAL DIFF REQ NO Normal [facility] Comment on above: Performed By: #### C BC ####[facility] [address] [place] [address]Imbtit Dianne MCH Auto Entitic mass (RBC) 28.2 pg Normal 25.9-34.0 The [facility] Comment on above: Performed By: #### C BC ####[facility] [address] [place], [place] [phone] Dianne MCHC Auto mass conc (RBC) 31.8 g/dL Normal 29.9-35.2 The [facility] Comment on above: Performed By: #### C BC ####[facility] [address] [place], [place] [phone] Dianne MCV Auto Entitic volume (RBC) 88.9 fL Normal 80.0-94.0 The [facility] Comment on above: Performed By: #### C BC ####[facility] [address] [place], [place] [phone] Dianne Monocytes Auto #/vol (Bld) 0.6 103/ul Normal 0.3-0.8 [facility] Comment on above: Performed By: #### C BC ####[facility] [address] [place], [place] [phone] Dianne Monocytes/100 WBC Auto (Bld) 5.8 % Normal 1.7-12.0 [facility] Comment on above: Performed By: #### C BC ####[facility] [address]ys[address] [place], [place] [phone] Dianne Neutrophils Auto #/vol (Bld) 7.9 103/ul Critically high 1.4-6.5 [facility] Comment on above: Performed By: #### C BC ####[facility] [address] [place], [place] [phone] Dianne Neutrophils/100 WBC Auto (Bld) 77.0 % Critically high 43.0-75.0 [facility] Comment on above: Performed By: #### C BC ####[facility] N[address] Dianne Platelet mean volume Auto Entitic volume (Bld) 9.7 fL Normal 9.5-13.5 [facility] Comment on above: Performed By: #### C BC ####[facility] [address] [place] [address] Dianne Platelets Auto #/vol (Bld) 227 103/ul Normal 150-450 The [facility] Comment on above: Performed By: #### C BC ####[facility] [address] [place] [address] Dianne RBC Auto #/vol (Bld) 3.79 106/ul Critically low 4.70-6.10 The [facility] Comment on above: Performed By: #### C BC ####[facility] [address] [place] [address] Dianne WBC Auto #/vol (Bld) 10.3 103/ul Normal 4.0-11.0 [facility] Comment on above: Performed By: #### C BC ####[facility] [address] [place] [address] Dianne CRPon 10-31-2017 CRP mass conc 7.4 mg/dL Critically high <=1.0 [facility] Comment on above: Performed By: #### C RP ####[facility] [address] [place] [address] Dianne SED RATE WESTERGRENon 2017 SED RATE 96 mm/hr Critically high <=20 [facility] Comment on above: Performed By: #### S EDR ####[facility] [address] [place] [address] Dianne SEDRH METHOD AND NORMAL CH NHUNG 07/06/15. RESULTS ARE NOT AFFECTED BY HEMATOCRIT. Normal [facility] Comment on above: Performed By: #### S EDR ####[facility] [address] [place] [address] Dianne VANCOMYCIN TROUGHon 11-01-19 18 VANCOMYCIN TROUGH 11.3 ug/ml Normal 5.0-20.0 The [facility] Comment on above: Performed By: #### V ANCT ####[facility] [address] [place] [id number] Dianne CBC AUTO DIFFon 10-30-2017 Basophils Auto #/vol (Bld) 0.1 103/ul Normal 0.0-0.1 The [facility] Comment on above: Performed By: #### C BC ####[facility] Bh[address] [place], [place] [phone] Dianne Basophils/100 WBC Auto (Bld) 0.5 % Normal 0.2-2.0 The [facility] Comment on above: Performed By: #### C BC ####[facility] [address] [place], [place] [phone] Dianne Eosinophils Auto #/vol (Bld) 0.2 103/ul Normal 0.0-0.7 The [facility] Comment on above: Performed By: #### C BC ####[facility] [address] [place], [place] [phone] Dianne Eosinophils/100 WBC Auto (Bld) 1.5 % Normal 0.9-7.0 The [facility] Comment on above: Performed By: #### C BC ####[facility] Get[address] [place], [place] [id number] Dianne Erythrocyte distribution width Auto Ratio (RBC) 13.6 % Normal 11.0-15.0 The [facility] Comment on above: Performed By: #### C BC ####[facility] [address] [place], [place] [phone] Dianne Hematocrit Auto Volume Fraction (Bld) 37.4 % Critically low 42.0-54.0 The [facility] Comment on above: Performed By: #### C BC ####[facility] [address] [place], [place] [phone] Dianne Hemoglobin mass conc (Bld) 11.5 g/dL Critically low 14.0-18.0 The [facility] Comment on above: Performed By: #### C BC ####[facility] [address] [place], [place] [address]Dhyqyd Dianne IG # 0.09 10e3/ul Critically high 0.00-0.03 [facility] Comment on above: Performed By: #### C BC ####[facility] [address] [place], [place] [address]Haebxw Dianne IG % 0.9 % Critically high 0.0-0.5 [facility] Comment on above: Performed By: #### C BC ####[facility] [address] [place] [phone] Dianne Lymphocytes Auto #/vol (Bld) 1.8 103/ul Normal 1.2-3.8 The [facility] Comment on above: Performed By: #### C BC ####[facility] [address] [place] [address] Dianne Lymphocytes/100 WBC Auto (Bld) 18.1 % Critically low 20.5-60.0 [facility] Comment on above: Performed By: #### C BC ####[facility] [address] [place], [place] [id number] Dianne MANUAL DIFF REQ NO Normal [facility] Comment on above: Performed By: #### C BC ####[facility] [address] [place], [place] [phone] Dianne MCH Auto Entitic mass (RBC) 27.8 pg Normal 25.9-34.0 The [facility] Comment on above: Performed By: #### C BC ####[facility] [address] [place] [address] Dianne MCHC Auto mass conc (RBC) 30.7 g/dL Normal 29.9-35.2 The [facility] Comment on above: Performed By: #### C BC ####[facility] [address] [place] [address] Dianne MCV Auto Entitic volume (RBC) 90.3 fL Normal 80.0-94.0 The [facility] Comment on above: Performed By: #### C BC ####[facility] [address] [place] [address]Zntaqg Dianne Monocytes Auto #/vol (Bld) 0.7 103/ul Normal 0.3-0.8 The [facility] Comment on above: Performed By: #### C BC ####[facility] [address] [place] [id number] Dianne Monocytes/100 WBC Auto (Bld) 6.6 % Normal 1.7-12.0 The [facility] Comment on above: Performed By: #### C BC ####[facility] [address] [place] [address] 786[address]Xxfacw Dianne Neutrophils Auto #/vol (Bld) 7.3 103/ul Critically high 1.4-6.5 The [facility] Comment on above: Performed By: #### C BC ####[facility] [address] [place] [address]Bubdkl Dianne Neutrophils/100 WBC Auto (Bld) 72.4 % Normal 43.0-75.0 The [facility] Comment on above: Performed By: #### C BC ####[facility] [address] [place] [address]Vcfvdl Dianne Platelet mean volume Auto Entitic volume (Bld) 9.3 fL Critically low 9.5-13.5 The [facility] Comment on above: Performed By: #### C BC ####[facility] [address] [place] [address]24[address]Xxnxmo Dianne Platelets Auto #/vol (Bld) 263 103/ul Normal 150-450 The [facility] Comment on above: Performed By: #### C BC ####[facility] [address] [place] [address]Fhmqra Dianne RBC Auto #/vol (Bld) 4.14 106/ul Critically low 4.70-6.10 The [facility] Comment on above: Performed By: #### C BC ####[facility] [address] [place] [address]Qifhpb Dianne WBC Auto #/vol (Bld) 10.1 103/ul Normal 4.0-11.0 The [facility] Comment on above: Performed By: #### C BC ####[facility] [address] [place] [id number] Dianne Basophils Auto #/vol (Bld) 0.0 103/ul Normal 0.0-0.1 The [facility] Comment on above: Performed By: #### C BC ####[facility] [address] [place] [address] Dianne Basophils/100 WBC Auto (Bld) 0.4 % Normal 0.2-2.0 The [facility] Comment on above: Performed By: #### C BC ####[facility] [address] [place] [address] Dianne Eosinophils Auto #/vol (Bld) 0.2 103/ul Normal 0.0-0.7 The [facility] Comment on above: Performed By: #### C BC ####[facility] [address] [place] [address] Dianne Eosinophils/100 WBC Auto (Bld) 1.5 % Normal 0.9-7.0 [facility] Comment on above: Performed By: #### C BC ####[facility] W[address] [place] [address] Dianne Erythrocyte distribution width Auto Ratio (RBC) 13.6 % Normal 11.0-15.0 [facility] Comment on above: Performed By: #### C BC ####[facility] [address] [place] [address] Dianne Hematocrit Auto Volume Fraction (Bld) 37.2 % Critically low 42.0-54.0 [facility] Comment on above: Performed By: #### C BC ####[facility] [address] [place] [address] Dianne Hemoglobin mass conc (Bld) 11.7 g/dL Critically low 14.0-18.0 The [facility] Comment on above: Performed By: #### C BC ####[facility] [address] [place] [address] Dianne IG # 0.08 10e3/ul Critically high 0.00-0.03 [facility] Comment on above: Performed By: #### C BC ####[facility] Qu[address] Dianne IG % 0.8 % Critically high 0.0-0.5 [facility] Comment on above: Performed By: #### C BC ####[facility] [address] [place] [address] Dianne Lymphocytes Auto #/vol (Bld) 1.7 103/ul Normal 1.2-3.8 [facility] Comment on above: Performed By: #### C BC ####[facility] [address] [place] [address] Dianne Lymphocytes/100 WBC Auto (Bld) 17.0 % Critically low 20.5-60.0 [facility] Comment on above: Performed By: #### C BC ####[facility] [address] [place] [address] Dianne MANUAL DIFF REQ NO Normal [facility] Comment on above: Performed By: #### C BC ####[facility] [address] [place] [address] Dianne MCH Auto Entitic mass (RBC) 28.2 pg Normal 25.9-34.0 [facility] Comment on above: Performed By: #### C BC ####[facility] [address] [place] [address] Dianne MCHC Auto mass conc (RBC) 31.5 g/dL Normal 29.9-35.2 [facility] Comment on above: Performed By: #### C BC ####[facility] [address] [place] [address] Dianne MCV Auto Entitic volume (RBC) 89.6 fL Normal 80.0-94.0 [facility] Comment on above: Performed By: #### C BC ####[facility] [address] [place] [address] Dianne Monocytes Auto #/vol (Bld) 0.7 103/ul Normal 0.3-0.8 [facility] Comment on above: Performed By: #### C BC ####[facility] [address] [place] [address]Ger[address] Dianne Monocytes/100 WBC Auto (Bld) 7.0 % Normal 1.7-12.0 [facility] Comment on above: Performed By: #### C BC ####[facility] V[address] [place] [address] Dianne Neutrophils Auto #/vol (Bld) 7.5 103/ul Critically high 1.4-6.5 The [facility] Comment on above: Performed By: #### C BC ####[facility] [address] [place] [address] Dianne Neutrophils/100 WBC Auto (Bld) 73.3 % Normal 43.0-75.0 The [facility] Comment on above: Performed By: #### C BC ####[facility] [address] [place] [address] Dianne Platelet mean volume Auto Entitic volume (Bld) 9.9 fL Normal 9.5-13.5 The [facility] Comment on above: Performed By: #### C BC ####[facility] [address] [place] [address] Dianne Platelets Auto #/vol (Bld) 288 103/ul Normal 150-450 The [facility] Comment on above: Performed By: #### C BC ####[facility] [address] [place], [place] [address]Gerken Dianne RBC Auto #/vol (Bld) 4.15 106/ul Critically low 4.70-6.10 The [facility] Comment on above: Performed By: #### C BC ####[facility] [address] [place] [address] Dianne WBC Auto #/vol (Bld) 10.2 103/ul Normal 4.0-11.0 The [facility] Comment on above: Performed By: #### C BC ####[facility] [address] [place] [address] Dianne CRPon 06-01-2018 CRP mass conc 6.9 mg/dL Critically high <=1.0 [facility] Comment on above: Performed By: #### C RP ####[facility] [address] [place] [phone] Dean SED RATE WESTERGRENon 2017 SED RATE 94 mm/hr Critically high <=20 [facility] Comment on above: Performed By: #### S EDR ####[facility] [address] [place] [address] Dianne SEDRH METHOD AND NORMAL CH NHUNG 07/06/15. RESULTS ARE NOT AFFECTED BY HEMATOCRIT. Normal [facility] Comment on above: Performed By: #### S EDR ####[facility] [address] [place], [place] [address]Gerken Dianne CULTURE ANAEROBICon 10-30-19 18 CULTURE ANAEROBIC Culture Observations : FINAL, SCANNED RESULTS TO FOLLOW IN [facility] Culture Observations: CALLED/FAXED TO DR TAMAYO/MENDOZA 11/03/2017 1030 [facility] Comment on above: Performed By: #### P TT, PT ####[facility] [address] [place] [address] Dianne CULTURE OTHERon 10-29-2017 CULTURE OTHER Culture Observations : Prelim results given to Dr Tamayo 11-01-17 @1310 -[facility] Culture Observations: Final, scanned results to follow in [facility] Comment on above: Performed By: #### P TT, PT ####[facility] [address] [place], [place] [address]Mayur Dean PROTIMEon 10-28-2017 INR Coag RelTime (Bld) SEE BELOW Normal [facility] Comment on above: Result Comment: MOOKIE RED INR: 2.0 - 3.0 CONDITIONS NOT LISTED BELOW 2.5 - 3.5 FOR PROSTHETIC HEART VALVE REPLACEMENT 2.5 - 3.5 RECURRENT THROMBOSIS Performed By: #### P TT, PT ####[facility] [address] [place] [address] Dianne INR Coag RelTime (PPP) 1.10 {INR} Normal [facility] Comment on above: Performed By: #### P TT, PT ####[facility] [address] [place], [place] [address]QvsesnMayur Dean Prothrombin time (PT) Coag time (PPP) 11.3 s Normal 9.0-11.6 The [facility] Comment on above: Performed By: #### P TT, PT ####[facility] [address] [place], [place] [address]YsgzbuMayur Dean PT NORMAL PLEASE NOTE: NORMAL RANGE CHANGE 02-16-2014 DUE TO REAGENT LOT CHANGE Normal The [facility] Comment on above: Performed By: #### P TT, PT ####[facility] [address] [place], [place] [address]RkrjzaMayur Dean PTTon 10-28-2017 aPTT Coag time (Bld) 30.1 s Normal 22.3-36.2 The [facility] Comment on above: Performed By: #### P TT, PT ####[facility] [address] [place] [address]AzsgqrMayur Dean aPTT Coag time (Bld) PLEASE NOTE: NORMAL RANGE CHANGE 04-25-2015 DUE TO REAGENT LOT CHANGE Normal The [facility] Comment on above: Performed By: #### P TT, PT ####[facility] [address] [place], [place] [address]RdpefzMayur Dean Vital Signs Date Time Vital Sign Value Performing Clinician Facility 07-19-2024 14:53-0500 Body temperature 97.3 [degF] [facility] 07-19-2024 14:53-0500 Body weight 181.43 kg [facility] 07-19-2024 14:53-0500 Diastolic blood pressure 94 mm[Hg] [facility] 07-19-2024 14:53-0500 Heart rate 76 /min [facility] 07-19-2024 14:53-0500 Respiratory rate 24 /min [facility] 07-19-2024 14:53-0500 Systolic blood pressure 172 mm[Hg] [facility] 07-11-2024 15:26-0500 Body height 182.88 cm Bakari White DO Work Phone: [facility] 07-11-2024 15:26-0500 Body mass index (BMI) [Ratio] 54.5 kg/m2 Bakari Branchi DO Work Phone: [facility] 07-11-2024 15:26-0500 Body temperature 101.2 [degF] Bakari Branchi DO Work Phone: [facility] 07-11-2024 15:26-0500 Body weight 182.34 kg Bakari Branchi DO Work Phone: [facility] 07-11-2024 15:26-0500 Diastolic blood pressure 83 mm[Hg] Bakari Branchi DO Work Phone: [facility] 07-11-2024 15:26-0500 Heart rate 93 /min Bakari Branchi DO Work Phone: [facility] 07-11-2024 15:26-0500 Respiratory rate 18 /min Bakari Branchi DO Work Phone: [facility] 07-11-2024 15:26-0500 SaO2% (BldA) [Mass fraction] 98 % Bakari Branchi DO Work Phone: [facility] 07-11-2024 15:26-0500 Systolic blood pressure 138 mm[Hg] Bakari Branchi DO Work Phone: [facility] 05-27-2024 08:38-0500 Body height 182.88 cm Bakari Branchi DO Work Phone: [facility] 05-27-2024 08:38-0500 Body mass index (BMI) [Ratio] 54.1 kg/m2 Bakari Branchi DO Work Phone: [facility] 05-27-2024 08:38-0500 Body weight 180.98 kg Bakari Branchi DO Work Phone: [facility] 05-27-2024 08:38-0500 Diastolic blood pressure 92 mm[Hg] Bakari Branchi DO Work Phone: [facility] 05-27-2024 08:38-0500 Heart rate 70 /min Bakari Branchi DO Work Phone: [facility] 05-27-2024 08:38-0500 SaO2% (BldA) [Mass fraction] 96 % Bakari Branchi DO Work Phone: [facility] 05-27-2024 08:38-0500 Systolic blood pressure 158 mm[Hg] Bakari Branchi DO Work Phone: [facility] 04-19-2024 14:19-0500 Diastolic blood pressure 94 mm[Hg] Bakari Branchi DO Work Phone: [facility] 04-19-2024 14:19-0500 Systolic blood pressure 162 mm[Hg] Bakari Branchi DO Work Phone: [facility] 04-19-2024 14:03-0500 Body height 182.88 cm Bakari Branchi DO Work Phone: [facility] 04-19-2024 14:03-0500 Body mass index (BMI) [Ratio] 53 kg/m2 Bakari Branchi DO Work Phone: [facility] 04-19-2024 14:03-0500 Body weight 177.35 kg Bakari Branchi DO Work Phone: [facility] 04-19-2024 14:03-0500 Heart rate 80 /min Bakari Branchi DO Work Phone: [facility] 04-19-2024 14:03-0500 Respiratory rate 20 /min Bakari Branchi DO Work Phone: [facility] 04-19-2024 14:03-0500 SaO2% (BldA) [Mass fraction] 99 % Bakari White DO Work Phone: [facility] 04-13-2024 12:26-0500 Body height 182.9 cm Darlene Brito PA Work Phone: [facility] 04-13-2024 12:26-0500 Diastolic blood pressure 84 mm[Hg] Darlene Brito PA Work Phone: [facility] 04-13-2024 12:26-0500 Heart rate 88 /min Darlene Brito PA Work Phone: [facility] 04-13-2024 12:26-0500 Respiratory rate 16 /min Darlene Brito PA Work Phone: [facility] 04-13-2024 12:26-0500 SaO2% (BldA) [Mass fraction] 96 % Darlene Brito PA Work Phone: [facility] 04-13-2024 12:26-0500 Systolic blood pressure 142 mm[Hg] Darlene Brito PA Work Phone: [facility] 03-02-2024 08:43-0400 Body height 182.9 cm Mario Kumargel BOTTLE MACHINE OPERATOR Work Phone: [facility] 03-02-2024 08:43-0400 Body mass index (BMI) [Ratio] 53.16 kg/m2 Mario Judynagel BOTTLE MACHINE OPERATOR Work Phone: [facility] 03-02-2024 08:43-0400 Body weight 177.81 kg Mario Judynagel BOTTLE MACHINE OPERATOR Work Phone: [facility] 03-02-2024 08:43-0400 Diastolic blood pressure 88 mm[Hg] Mario Judynagel BOTTLE MACHINE OPERATOR Work Phone: [facility] 03-02-2024 08:43-0400 Heart rate 73 /min Mario Judynagel BOTTLE MACHINE OPERATOR Work Phone: [facility] 03-02-2024 08:43-0400 Systolic blood pressure 153 mm[Hg] Mario Judynagel BOTTLE MACHINE OPERATOR Work Phone: [facility] 05-19-2023 14:00-0500 Body height 182.88 cm Bakari White Other [facility] Other 05-19-2023 14:00-0500 Body mass index (BMI) [Ratio] 52.48 kg/m2 Bakari White Other [facility] Other 05-19-2023 14:00-0500 Body weight 175.54 kg Bakari White Other [facility] Other 05-19-2023 14:00-0500 Diastolic blood pressure 86 mm[Hg] Bakari White Other [facility] Other 05-19-2023 14:00-0500 Respiratory rate 18 /min Bakari White Other [facility] Other 05-19-2023 14:00-0500 SaO2% (BldA) [Mass fraction] 100 % Bakari White Other [facility] Other 05-19-2023 14:00-0500 Systolic blood pressure 130 mm[Hg] Bakari Wellsperfecto Other [facility] Other 02-24-2023 09:30-0400 Body height 182.88 cm Bakari Damonjeremíasmarkos Other [facility] Other 02-24-2023 09:30-0400 Body mass index (BMI) [Ratio] 50.99 kg/m2 Bakari Damonjeremíasmarkos Other [facility] Other 02-24-2023 09:30-0400 Body weight 170.55 kg Bakari White Other [facility] Other 02-24-2023 09:30-0400 Respiratory rate 18 /min Bakari White Other [facility] Other 02-24-2023 09:30-0400 SaO2% (BldA) [Mass fraction] 99 % Bakari White Other [facility] Other 11-21-2022 10:00-0400 Body height 182.88 cm Bakari White Other [facility] Other 11-21-2022 10:00-0400 Body mass index (BMI) [Ratio] 52.21 kg/m2 Bakari White Other [facility] Other 11-21-2022 10:00-0400 Body temperature 98.6 [degF] Bakari White Other [facility] Other 11-21-2022 10:00-0400 Body weight 174.64 kg Bakari White Other [facility] Other 11-21-2022 10:00-0400 Diastolic blood pressure 86 mm[Hg] Bakari White Other [facility] Other 11-21-2022 10:00-0400 Respiratory rate 20 /min Bakari White Other [facility] Other 11-21-2022 10:00-0400 SaO2% (BldA) [Mass fraction] 100 % Bakari White Other [facility] Other 11-21-2022 10:00-0400 Systolic blood pressure 130 mm[Hg] Bakari White Other [facility] Other 06-13-2022 17:54-0500 Respiratory rate 20 /min Ajay Galvan MD Work Phone: [facility] 06-13-2022 07:15-0500 Body temperature 96.8 [degF] Ajay Galvan MD Work Phone: [facility] 06-13-2022 07:15-0500 Diastolic blood pressure 82 mm[Hg] Ajay Galvan MD Work Phone: [facility] 06-13-2022 07:15-0500 Heart rate 71 /min Ajay Galvan MD Work Phone: [facility] 06-13-2022 07:15-0500 SaO2% (BldA) [Mass fraction] 96 % Ajay Galvan MD Work Phone: [facility] 06-13-2022 07:15-0500 Systolic blood pressure 125 mm[Hg] Ajay Galvan MD Work Phone: [facility] 06-13-2022 04:52-0500 Body mass index (BMI) [Ratio] 50.26 kg/m2 Ajay Galvan MD Work Phone: [facility] 06-13-2022 04:52-0500 Body weight 168.1 kg Ajay Galvan MD Work Phone: [facility] Comment on above: 1st weight obtained on floor 06-12-2022 09:00-0500 Body height 182.9 cm Ajay Galvan MD Work Phone: [facility] 06-09-2022 10:43-0500 Body height 182.9 cm Ajay Galvan MD Work Phone: [facility] 06-09-2022 10:43-0500 Body mass index (BMI) [Ratio] 49.91 kg/m2 Ajay Galvan MD Work Phone: [facility] 06-09-2022 10:43-0500 Body temperature 97.11 [degF] Ajay Galvan MD Work Phone: [facility] 06-09-2022 10:43-0500 Body weight 166.92 kg Ajay Galvan MD Work Phone: [facility] 06-09-2022 10:43-0500 Diastolic blood pressure 81 mm[Hg] Ajay Galvan MD Work Phone: [facility] 06-09-2022 10:43-0500 Heart rate 70 /min Ajay Galvan MD Work Phone: [facility] 06-09-2022 10:43-0500 Respiratory rate 18 /min Ajay Galvan MD Work Phone: [facility] 06-09-2022 10:43-0500 SaO2% (BldA) [Mass fraction] 97 % Ajay Galvan MD Work Phone: [facility] 06-09-2022 10:43-0500 Systolic blood pressure 178 mm[Hg] Ajay Galvan MD Work Phone: [facility] 05-19-2022 14:00-0500 Body height 182.88 cm Bakari White Other [facility] Other 05-19-2022 14:00-0500 Body mass index (BMI) [Ratio] 50.45 kg/m2 Bakari White Other [facility] Other 05-19-2022 14:00-0500 Body weight 168.74 kg Bakari White Other [facility] Other 05-19-2022 14:00-0500 Diastolic blood pressure 91 mm[Hg] Bakari White Other [facility] Other 05-19-2022 14:00-0500 Respiratory rate 20 /min Bakari White Other [facility] Other 05-19-2022 14:00-0500 SaO2% (BldA) [Mass fraction] 100 % Bakari White Other [facility] Other 05-19-2022 14:00-0500 Systolic blood pressure 152 mm[Hg] Bakari White Other [facility] Other 05-12-2022 14:21-0500 Body height 182.9 cm Ajay Galvan MD Work Phone: [facility] 05-12-2022 14:21-0500 Body mass index (BMI) [Ratio] 49.31 kg/m2 Ajay Galvan MD Work Phone: [facility] 05-12-2022 14:21-0500 Body temperature 96.8 [degF] Ajay Galvan MD Work Phone: [facility] 05-12-2022 14:21-0500 Body weight 164.93 kg Ajay Galvan MD Work Phone: [facility] 05-12-2022 14:21-0500 Diastolic blood pressure 86 mm[Hg] Ajay Galvan MD Work Phone: [facility] 05-12-2022 14:21-0500 Heart rate 74 /min Ajay Galvan MD Work Phone: [facility] 05-12-2022 14:21-0500 Respiratory rate 20 /min Ajay Galvan MD Work Phone: [facility] 05-12-2022 14:21-0500 SaO2% (BldA) [Mass fraction] 97 % Ajay Galvan MD Work Phone: [facility] 05-12-2022 14:21-0500 Systolic blood pressure 133 mm[Hg] Ajay Galvan MD Work Phone: [facility] 01-29-2022 15:56-0400 Diastolic blood pressure 92 mm[Hg] DO Bakari Branchi Work Phone: [facility] 01-29-2022 15:56-0400 Heart rate 63 /min DO Bakari Branchi Work Phone: [facility] 01-29-2022 15:56-0400 Respiratory rate 18 /min DO Bakari Branchi Work Phone: [facility] 01-29-2022 15:56-0400 SaO2% (BldA) [Mass fraction] 96 % DO Bakari White Work Phone: [facility] 01-29-2022 15:56-0400 Systolic blood pressure 165 mm[Hg] DO Bakari Branchi Work Phone: [facility] 01-29-2022 11:10-0400 Body height 182.88 cm DO Bakari Branchi Work Phone: [facility] 01-29-2022 11:10-0400 Body temperature 98.8 [degF] DO Bakari Branchi Work Phone: [facility] 01-29-2022 11:10-0400 Body weight 170 kg DO Bakari Damoncki Work Phone: [facility] 01-08-2022 15:30-0400 Body height 182.88 cm Bakari White Other [facility] Other 01-08-2022 15:30-0400 Diastolic blood pressure 84 mm[Hg] Bakari White Other [facility] Other 01-08-2022 15:30-0400 Respiratory rate 20 /min Bakari White Other [facility] Other 01-08-2022 15:30-0400 SaO2% (BldA) [Mass fraction] 98 % Bakari White Other [facility] Other 01-08-2022 15:30-0400 Systolic blood pressure 132 mm[Hg] Bakari White Other [facility] Other Encounters Encounter Date Encounter Type Care Provider Facility Start: 09-19-2024 End: 09-19-2024 ambulatory Apolonia Coleman MD Facility:[facility] Start: 07-19-2024 End: 07-19-2024 ambulatory [facility] Work Phone: Start: 07-19-2024 End: 07-19-2024 Patient encounter procedure [facility] Work Phone: Start: 07-11-2024 End: 07-11-2024 ambulatory Bakari White DO Work Phone: [facility] Work Phone: Start: 07-11-2024 End: 07-11-2024 Patient encounter procedure Bakari White DO Work Phone: [facility] [place] Work Phone: Start: 07-11-2024 End: 07-20-2024 Telephone encounter Dusty Patterson PT Work Phone: [facility] Comment on above: re: PT status and au th given; FU; Final Start: 07-06-2024 End: 07-06-2024 Bamboo flowsheet Louisa Guy [employer] [facility] Start: 07-06-2024 End: 07-06-2024 Bamboo flowsheet Louisa Guy [employer] [facility] Start: 07-06-2024 End: 07-06-2024 ambulatory Louisa Guy [employer] [facility] Comment on above: Radiculopathy, lumba r region (Primary Dx); Difficulty walking; Weakness of both lower extremities Start: 06-29-2024 End: 06-29-2024 Bamboo flowsheet Dusty Patterson PT Work Phone: [facility] Start: 06-29-2024 End: 06-29-2024 Bamboo flowsheet Dusty Chakraborty Luizaleela PT Work Phone: [facility] Start: 06-29-2024 End: 06-29-2024 ambulatory Dusty Mylene Eboni PT Work Phone: [facility] Comment on above: Radiculopathy, lumba r region (Primary Dx); Difficulty walking; Weakness of both lower extremities Start: 06-08-2024 End: 06-08-2024 ambulatory Apolonia Coleman MD Facility: [facility] Start: 05-27-2024 End: 05-27-2024 Patient encounter procedure Bakari White DO Work Phone: [facility] Work Phone: Start: 05-16-2024 End: 05-16-2024 ambulatory Apolonia Coleman MD Facility: [facility] Start: 04-19-2024 End: 04-19-2024 ambulatory Bakari White DO Work Phone: [facility] Work Phone: Start: 04-19-2024 End: 04-19-2024 Encounter for general adult medical examination without abnormal findings Bakari White DO Work Phone: [facility] Start: 04-19-2024 End: 04-19-2024 Patient encounter procedure Bakari White DO Work Phone: [facility] Work Phone: Start: 04-13-2024 End: 04-13-2024 Bamboo flowsheet Darlene Brito PA Work Phone: [facility] Start: 04-13-2024 End: 04-13-2024 Bamboo flowsheet Darlene Brito PA Work Phone: [facility] Start: 04-13-2024 End: 04-13-2024 Office outpatient visit 25 minutes Darlene Brito PA Work Phone: [facility] Comment on above: Polyneuropathy (Prim jerry Dx); Painful legs and moving toes of left foot; Other specified peripheral vascular diseases (CMS/HCC) Start: 04-13-2024 End: 04-13-2024 ambulatory DARLENE BRITO Not Available Start: 04-13-2024 End: 04-13-2024 Patient encounter procedure Bakari White DO Work Phone: [facility] [place] Work Phone: Start: 04-13-2024 End: 04-13-2024 ambulatory Bakari White DO Work Phone: [facility] Work Phone: Start: 03-02-2024 End: 03-02-2024 Bamboo flowsheet Mario Mensah BOTTLE MACHINE OPERATOR Work Phone: [facility] Start: 03-02-2024 End: 03-02-2024 Bamboo flowsheet Mario Mensah BOTTLE MACHINE OPERATOR Work Phone: [facility] Start: 03-02-2024 End: 03-02-2024 Office outpatient visit 25 minutes Mario Mensah BOTTLE MACHINE OPERATOR Work Phone: [facility] Comment on above: Polyneuropathy (Prim jerry Dx) Start: 03-02-2024 End: 03-02-2024 ambulatory MARIO MENSAH Not Available Start: 02-24-2024 End: 02-24-2024 Emergency department patient visit BAKARI Moise CHRISTOPHER [facility] Start: 06-10-2023 End: 06-10-2023 ambulatory Bakari Wellsperfecto Other [facility] Other Start: 06-10-2023 Telephone encounter Bakari Sarina burrows [facility] Start: 05-29-2023 End: 05-30-2023 Emergency department patient visit TYLER Kika [facility] Start: 05-29-2023 End: 05-30-2023 Emergency department patient visit TYLER Kika [facility] Start: 05-29-2023 End: 05-29-2023 Emergency department patient visit [facility] Start: 05-19-2023 End: 05-19-2023 ambulatory Bakari Damonjeremíasmarkos Other [facility] Other Start: 05-19-2023 Office outpatient vi sit 25 minutes Bakari Christopher [facility] Start: 03-16-2023 End: 03-17-2023 ambulatory [facility]A [facility] Start: 02-24-2023 End: 02-24-2023 ambulatory Bakari Christopher Other [facility] Other Start: 02-24-2023 Encounter for other preprocedural examination Bakari Christopher [facility] Start: 02-24-2023 Office outpatient vi sit 25 minutes Bakari Christopher [facility] Start: 02-18-2023 End: 02-23-2023 ambulatory AJAY E MALIKA [facility] Start: 11-24-2022 End: 11-24-2022 ambulatory Bakari Christopher Other [facility] Other Start: 11-24-2022 Telephone encounter Bakari Branch i [facility] Start: 11-21-2022 End: 11-21-2022 ambulatory Bakari White Other [facility] Other Start: 11-21-2022 Encounter for genera l adult medical examination without abnormal findings Bakari White [facility] Start: 11-21-2022 Periodic preventive med est patient 40-64yrs Bakari White [facility] Start: 06-12-2022 End: 06-13-2022 ambulatory AJAY [facility] Start: 06-12-2022 End: 06-13-2022 Subsequent hospital visit by physician Ajay Galvan MD Work Phone: [facility] Comment on above: S/P TKR (total knee replacement) using cement, left (Primary Dx) Start: 06-09-2022 End: 06-09-2022 ambulatory AJAY GALVAN [facility] Start: 06-09-2022 End: 06-09-2022 Subsequent hospital visit by physician Ajay Galvan MD Work Phone: [facility] Start: 06-04-2022 End: 06-05-2022 ambulatory AJAY GALVAN [facility] Start: 06-04-2022 End: 06-05-2022 Encounter for other preprocedural examination ROCHESTER Bulmaro GALVAN [facility] Start: 06-04-2022 End: 06-04-2022 Subsequent hospital visit by physician Juany Pena PT [facility] Comment on above: Arrived Start: 05-22-2022 End: 05-22-2022 ambulatory Bakari White Other [facility] Other Start: 05-22-2022 Telephone encounter Bakari Branch i [facility] Start: 05-19-2022 End: 05-19-2022 ambulatory Bakari White Other [facility] Other Start: 05-19-2022 Encounter for other preprocedural examination Bakari White [facility] Start: 05-19-2022 Office outpatient vi sit 25 minutes Bakari White [facility] Start: 05-12-2022 End: 05-17-2022 ambulatory AJAY GALVAN [facility] Start: 05-12-2022 End: 05-16-2022 Subsequent hospital visit by physician Ajay Galvan MD Work Phone: [facility] PRE ADMIT Start: 04-11-2022 End: 04-11-2022 ambulatory Bakari Damonelmira Other [facility] Other Start: 04-11-2022 Telephone encounter Bakari Branch i [facility] Start: 01-30-2022 End: 01-30-2022 ambulatory Bakari White Other [facility] Other Start: 01-30-2022 Telephone encounter Bakari Branch i [facility] Start: 01-29-2022 End: 01-29-2022 Emergency department patient visit DO Bakari White Work Phone: [facility] Start: 01-27-2022 End: 01-27-2022 ambulatory Bakari White Other [facility] Other Start: 01-27-2022 Telephone encounter Bakari Branch i [employer] Start: 01-24-2022 End: 01-24-2022 Patient encounter procedure DO Bakari White Work Phone: [facility] [place] Start: 01-23-2022 End: 01-23-2022 ambulatory Bakari Damonelmira Other [facility] Other Start: 01-23-2022 Telephone encounter Bakari Branch i [facility] Start: 01-13-2022 End: 01-13-2022 ambulatory Bakari White Other [facility] Other Start: 01-13-2022 Telephone encounter Bakari Branch i [facility] Start: 01-08-2022 End: 01-08-2022 ambulatory Bakari White Other [facility] Other Start: 01-08-2022 Office outpatient vi sit 15 minutes Bakari White [facility] Start: 11-25-2021 End: 11-25-2021 ambulatory Bakari Branchi Other [facility] Other Start: 11-25-2021 Telephone encounter Bakari Branch i [employer] Start: 10-02-2021 End: 10-02-2021 ambulatory Bakari White Other [facility] Other Start: 10-02-2021 Telephone encounter Bakari Branch i [employer] Start: 09-30-2021 End: 09-30-2021 ambulatory Bakari White Other [facility] Other Start: 09-30-2021 Telephone encounter Bakari Branch i [facility] Start: 07-29-2021 End: 07-29-2021 ambulatory Bakari White Other [facility] Other Start: 07-29-2021 Telephone encounter Bakari Branch i [employer] Start: 06-03-2021 End: 06-03-2021 ambulatory Bakari White Other [facility] Other Start: 06-03-2021 Office outpatient vi sit 15 minutes Bakari [facility] Start: 03-12-2018 End: 03-13-2018 Patient encounter DOCTOR THOMAS Facility: Start: 02-17-2018 End: 02-18-2018 Patient encounter ALEK MITTAL Facility:[facility] Start: 11-20-2017 End: 11-21-2017 Patient encounter ALEK MITTAL Facility:[facility] Start: 11-19-2017 Encounter for other specified special examinations ALEK MITTAL [facility] Start: 11-19-2017 End: 11-20-2017 Patient encounter MEG HACKETT Facility:[facility] Start: 11-02-2017 End: 11-12-2017 Evaluation and management of inpatient ALEK MITTAL Facility:[facility] Start: 11-02-2017 Encounter for preprocedural cardiovascular examination [facility] Start: 11-02-2017 Encounter for preprocedural laboratory examination [facility] Start: 10-30-2017 End: 11-02-2017 Patient encounter [facility] Facility: Start: 10-28-2017 End: 10-29-2017 Patient encounter [facility] Facility: Start: 10-28-2017 Pre-procedure evalua tion check Bakari White Other [facility] Other Encounter for other specified special examinations ALEK MITTAL [facility] Encounter for preprocedural laboratory examination [facility] Procedures Date Procedure Procedure Detail Performing Clinician [...] nos ABEL BOYER Start: 11-20-2017 REMOVE TISSUE PLUGGER(S) ALEK EBRAHEIM Start: 11-11-2017 DRAINAGE OF RIGHT [...] Treatment [facility] [address] [facility] [address] [place] [address] Louisa Guy, LILLIANA [facility] Start: 06-29-2024 End: 06-29-2024 ambulatory 06/29/2024 1:00 PM EST Evaluation [facility] [address] [facility] [address] [place] [address] Dusty Patterson, PT [address] [facility] [address] [place] [address] Arrived [facility] Comment on above: Arrived Start: 04-13-2024 End: 04-13-2026 US.doppler Lower extremity artery - left Vascular US lower extremity arterial duplex left with TATO Vascular Ultrasound Routine Painful legs and moving toes of left foot Other specified peripheral vascular diseases (CMS/HCC) Expected: 04/13/2024 (Approximate), Expires: 04/13/2026 [facility] Work Phone: Comment on above: Expected: 04/13/2024 (Approximate), Expires: 04/13/2026 Start: 03-02-2024 End: 03-02-2024 Patient encounter procedure 03/02/2024 8:40 AM EDT [facility] [address] [facility] [address] [place] [phone] Mario Mensah, BOTTLE MACHINE OPERATOR [address] [place], [place] [id number] Arrived [facility] Comment on above: Arrived Start: 06-12-2022 End: 06-12-2022 Admission to same day surgery center 06/12/2022 Surgery IP Unit Ajay Galvan MD [address] [place] [phone] KNEE TOTAL ARTHROPLASTY [facility] Comment on above: KNEE TOTAL ARTHROPLA STY Start: 06-12-2022 End: 06-12-2022 Arthrp kne condyle&platu medial&lat compartments KNEE TOTAL ARTHROPLASTY Arthritis of left knee 06/12/2022 10:50 AM [facility] Start: 06-12-2022 Subsequent hospital visit by physician 06/12/2022 Hospital Encounter IP Unit Ajay Galvan MD [address] [place] [phone] [facility] Start: 06-09-2022 End: 06-09-2022 Admission to same day surgery center 06/09/2022 Surgery IP Unit Ajay Galvan MD [address] [place] [address] [place] [address] KNEE TOTAL ARTHROPLASTY [facility] Comment on above: KNEE TOTAL ARTHROPLA STY Start: 06-09-2022 End: 06-09-2022 Arthrp kne condyle&platu medial&lat compartments KNEE TOTAL ARTHROPLASTY Osteoarthritis of left knee, unspecified osteoarthritis type 06/09/2022 11:00 AM [facility] Start: 06-09-2022 Subsequent hospital visit by physician 06/09/2022 Hospital Encounter IP Unit Ajay Galvan MD [address] [place] [address] [facility] Start: 06-04-2022 End: 06-04-2022 Patient encounter procedure 06/04/2022 Appointment Physical Therapy Juany Pena PT [facility] Start: 01-29-2022 CT of abdomen and pelvis without contrast CT abdomen pelvis wo [facility] Start: 01-29-2022 End: 01-29-2022 Emergency department patient visit Departed Emergency [facility] Start: 12-30-2021 Influenza vaccination Flu vaccine (# 1) [facility] Start: 2011 Shingles vaccine (1 of 2) Shingles vaccine (1 of 2) [facility] Start: 2006 Screening for malign ant neoplasm of colon [facility] Start: 2001 Lipid panel Lipids [facility] Start: 01-13-1980 DTaP/Tdap/Td vaccine (1 - Tdap) DTaP/Tdap/Td vaccine (1 - Tdap) [facility] Start: 1979 Hepatitis C screening Hepatitis C sc reen [facility] Start: 01-13-1976 HIV screening HIV screen [facility] Start: 1973 Depression Screen Depression Screen [facility] Start: 1961 COVID-19 Vaccine (#1) COVID-19 Vacci ne (#1) [facility] Oxygen therapy [[facility]] Initiate Oxygen Therapy Protocol Respiratory Care Routine As Needed until discontinued starting 06/12/2022 LILIYA BLAKE [facility] Work Phone: Comment on above: As Needed until disc ontinued starting 06/12/2022 Patient Education Low Back Pain ED Kidney Stone, Adult ED [facility] Work Phone: Patient referral [facility] Work Phone: XR Foot - left GE 3 Views [facility] Immunizations Immunization Date Immunization Notes Care Provider Juan Miguel barkley NEGATED: Highlighted row has not occurred!09-02-2018 influenza, seasonal, injectable Patient Objection Bakari Wellsperfecto Other [facility] Other Payers Date Payer Category Payer Self-pay [id number] 2022 [facility] [id number] 2022 Unknown [id number] 2013 Unknown [id number] 1961 Unknown [id number] 2.16.840.1.885319.3.579.2 .593 1961 Unknown [id number] 2.16.840.1.432201.3.579.2 .593 1961 Unknown [id number] 2.16.840.1.085679.3.579.2 .593 1961 Unknown [id number] 2.16.840.1.727983.3.579.2 .173 1961 Unknown [id number] 2.16.840.1.260665.3.579.2 .173 1961 Unknown [id number] 2.16.840.1.894859.3.579.2 .173 1961 Unknown [id number] 2.16.840.1.231397.3.579.2 .173 1961 Unknown [id number] 2.16.840.1.594348.3.579.2 .173 1961 Unknown [id number] 2.16.840.1.494871.3.579.2 .173 1961 Unknown [id number] 2.16.840.1.186597.3.579.2 .1286 1961 Unknown [id number] 2.16.840.1.652693.3.579.2 .1286 1961 Unknown [id number] 2.16.840.1.815573.3.579.2 .1286 1961 Unknown [id number] 2.16.840.1.040675.3.579.2 .1286 1961 Unknown [id number] 2.16.840.1.141895.3.579.2 .1286 1961 Unknown [id number] 2.16.840.1.100406.3.579.2 .1259 1961 Unknown [id number] 2.16.840.1.950643.3.579.2 .1259 1961 Unknown [id number] 2.16.840.1.846582.3.579.2 .1259 1961 Unknown [id number] 2.16.840.1.415829.3.579.2 .1259 1961 Unknown [id number] 2.16.840.1.585272.3.579.2 .196 1961 Unknown [id number] 2.16.840.1.353453.3.579.2 .196 1961 Unknown [id number] 2.16.840.1.838469.3.579.2 .196 1959 Unknown [id number] Unknown [id number] 2.16.840.1.567773.3.579.2 .531 Unknown [id number] 2.16.840.1.762901.3.579.2 .531 Social History Date Type Detail Facility Tobacco smoking status NHIS Unknown if ever smoked [facility] Start: 1960 Sex Assigned At Male F [facility] Start: 03-02-2024 End: 04-13-2024 Sex Assigned At [facility] [employer] Other Start: 01-29-2022 End: 03-02-2024 Tobacco smoking status NHIS Never smoked tobacco (finding) [facility] Start: 05-12-2022 End: 03-02-2024 Tobacco use and exposure Smokeless tobacco non-user [facility] Phone: Start: 05-12-2022 End: 06-12-2022 Alcohol intake Current drinker of alcohol (finding) [facility] Phone: Start: 05-12-2022 Alcohol Comment rare [employer] Phone: Start: 1960 Sex Assigned At Not on file B ON [facility] Phone: Start: 05-02-2022 End: 06-12-2022 Exposure to SARS-CoV-2 (event) Not sure [facility] Phone: Start: 03-02-2024 End: 04-13-2024 History of Social function [facility] Start: 04-14-2024 End: 07-19-2024 Sex Male (finding) [facility] Medical Equipment Procedure Code Equipment Code Equipment Origin al Text Equipment Identifier Dates Psn Mc Ve Asf L 12mm 8-11 Ef - [id number] Start: 06-12-2022 Goals Date Patient Goal Desired Activity /State Clinical Notes 01-08-2022 to 07-20-2024 Telephone Encounter - Tamika Schaefer - 07/20/2024 12:42 PM ESTTelephone Encounter - Tamika Silvano - 07/20/2024 12:42 PM ESTTelephone Encounter - [facility] - 07/18/2024 12:37 PM EST Note Date & Type Note Facility 07-20-2024 Telephone encounter Note Form atting of this note might be different from the original. With 2 attempts and not able to contact today, I am unable to check status and offer to schedule more PT. [facility] 07-20-2024 Miscellaneous Notes Formattin g of this [...] I'll call back. documented in this encounter [facility] 07-18-2024 Telephone encounter Note Form atting of this note might be different from the original. Tried to contact but there was no ring-in on phone call; tried 3x's. Off HIPAA, I called and she said she will inform him to call back. [facility] 07-11-2024 Telephone encounter Note Form atting of this [...] hear back by 07/14, I'll call back. [facility] 06-29-2024 History of Presen t illness Narrative [...] PT with c/c of bilateral LE weakness. summer, pt. Stated having severe left lower leg [...] to be instructed in home exercise program. Reducing Machine Operator Goals: To be met in 10 weeks [...] sign below. Date: documented in this encounter [facility] 05-27-2024 Evaluation note Diagnosis Onset Date Resolution BPH (benign prostatic hyperplasia) acute May 27, 2 024 8:35am Morbid (severe) obesity due to excess calories acute May 27 024 8:35am Influenza A acute July 3:06pm [facility] Work Phone: 1(285) 143-730211-19-2024 Evaluation note* Diagnosis Onset Date Resolution Status Admit Date BPH (benign prostatic hyperplasia) acute April 19 024 1:49pm Mixed hyperlipidemia acute [facility] 2023 1:49pm Morbid (severe) obesity due to excess calories acute April 1:49pm COTY (obstructive sleep apnea) acute April 19, 2024 1:49pm Other iron deficiency anemias acute April 19, 2024 1:49pm Screening for colon cancer noneactiv e April 19, 2024 1:49pm Encounter for wellness examination noneactive April 19 024 1:49pm Left foot pain noneactive April 012023 1:49pm [facility] Work Phone: 1(315) 180-401011-19-2024 Evaluation note* Diagnosis Onset Date Resolution Status Admit Date BPH (benign prostatic hyperplasia) acute April 19 024 1:49pm Mixed hyperlipidemia acute [facility] 2023 1:49pm Morbid (severe) obesity [...] BPH (benign prostatic hyperplasia) acute May 27, 024 8:35am Morbid (severe) obesity due to excess calories acute May 8:35am [facility] Work Phone: 1(126) 477-529011-13-2024 History of Present illness Narrative* Darlene Hill, PA - 04/13/2024 12:40 PM EST Subjective Júnior [...] Review Audit Reviewed by Kathy Benedict MA (Office Inspector) on 04/13/24 at 1233 Medication Order Taking? Sig Documenting Provider Last Dose Status DULoxetine (Cymbalta) [address] capsule [id number] Take 1 capsule (30 mg) by mouth [...] toe bilaterally. Proprioception is absent. Coordination Right: Bmgrqk-ir-txzq normal. Rapid alternating movement normal.Left: Ehylko-bx-zejm normal. Rapid alternating movement normal. Gait Unsteady, ambulates with a cane, uses arms to get out of the chair, right foot turned out slightly. Motor Examination RUE Strength deltoid, biceps, triceps, wrist extensors, wrist extensors, wrist flexor, jewel lathe operator strength 5/5. LUE Strength deltoid, biceps, triceps, wrist extensors, wrist extensors, wrist flexor, jewel lathe operator strength 5/5. RLE Strength illopsoas, quadriceps, tibialis [...] or sooner if needed documented in this encounterResearch Psychiatric [id number] Evaluation note* Encounter Date Diagnosis Assessment Notes [...] given him information on both Saxenda and Romero for weight loss _ _ he will [...] Screening for prostate cancer (ICD-10 - Z12.5) [facility] Other 09-26-2023 Evaluation note* Encounter Date Diagnosis [...] go forward with surgery at this time. [facility] Other 06-23-2023 Evaluation note* Encounter Date Diagnosis [...] on preoperative labs. Will continue to monitor. [facility] Other 01-13-2023 History of Present illness Narrative* Nicky Álvarez RN - 06/13/2022 7:45 PM EST Patient wheelchair out to private vehicle with . Belongings in hands. Discharge paperwork gone over by Laura SILVER * Kathi Jimenez RN - 06/13/2022 6:55 PM EST Dental Associate faxed discharge information to [facility] @ * Kathi Jimenez RN - 06/13/2022 6:42 PM EST Dental Associate reviewed discharge instructions with patient. Instructed on [...] C) Temporal 71 18 96 % -- 06/13/22451 -- -- -- -- -- -- (!) 370 lb 9.5 oz (168.1 kg) 06/13/22450 135/77 -- -- 64 -- 97 % [...] is ready to D/C pt. * Karmen Rogers, OT - 06/13/2022 11:36 AM EST Occupational Therapy Facility/Department: [facility] Occupational Therapy Initial Assessment Name: Júnior Rowland : 1960 Date of Service: 06/13/2022 Discharge Recommendations: Continue to assess pending progress, Home with Home health OT Patient Diagnosis(es): There were no encounter diagnoses. Past Medical History: has no past medical history on file. Past Surgical History: has a past surgical history that includes tumor removal (2014); knee surgery(Right, 2018); [place] tooth extraction; and Tonsillectomy. Treatment Diagnosis: Generalized [...] Ambulation Assistance: Independent Transfer Assistance: Independent Active Chemical Engineering Professor: Yes Objective Heart Rate: 71 Heart Rate [...] for LB ADL's, states he has LH tug master and sock aid at home from past R knee surgery, pt. yosef valentin with SBA using tug master. Educated on use of easy slide/fold techinque [...] 30 Karmen Rogers OT * Radha Allan, OTR COMPANY DRIVER - 06/13/2022 11:35 AM EST Physical Therapy Facility/Department: [facility] Daily Treatment Note NAME: Júnior [...] Short Term Goal 2: CGA GAIT FWW. Snf Goals Time Frame for Snf Goals : 4 WEEKS Snf Goal 1: IND GAIT ST CANE. Patient Goals Patient Goals : RETURN HOME WITH ASSIST. Education Patient Education Education Given To: Patient Education Provided: Transfer Training;Home Exercise Program Education Method: Demonstration Barriers to Learning: None Education Outcome: Verbalized understanding;Demonstrated understanding Therapy Time Individual Concurrent Group Co-treatment Time In 1100 Time Out 1132 Minutes 32 Timed Code Treatment Minutes: 32 Minutes Radha Allan, [id number] * Tanesha Fall RN - 06/13/2022 11:23 AM EST Pt walked with therapy and returned to room. He used urinal but therapist emptied it It wasn't very much, I'm sorry I didn't see you were measuring it * Radha Allan PTA - 06/13/2022 8:58 AM EST Physical Therapy Facility/Department: [facility] Daily Treatment Note NAME: Júnior [...] Short Term Goal 2: CGA GAIT FWW. Reducing Machine Operator Goals Time Frame for Reducing Machine Operator Goals : 4 WEEKS Snf Goal 1: IND GAIT ST CANE. Patient Goals Patient Goals : RETURN HOME WITH ASSIST. Education Patient Education Education Given To: Patient Education Provided: Transfer Training Education Method: Demonstration Barriers to Learning: None Education Outcome: Verbalized understanding;Demonstrated understanding Therapy Time Individual Concurrent Group Co-treatment Time In 0830 Time Out 0858 Minutes 28 Timed Code Treatment Minutes: 28 Minutes Radha Allan, [id number] * Tanesha Fall RN - 06/13/2022 7:15 [...] PM EST Scheduled tylenol given. Patient stated [place] PO did help with pain. Hemavac emptied, [...] got drainage right away. Emptied right before customs entry writer left room, 110 bloody drainage. Patient expressed wanting to get into bed. Patient stood and ambulated a few feet to bed. Patient tolerated well and did so with walker and contact guard. Ancef antibiotic hung. Patient rating pain 6/10, [place] PO given for pain. Water pitcher refilled. Patient got comfortable in bed. Patient deniesany other needs at this time. Call light, bedside table and personal belongings within reach. * Ivania Singh, PT - 06/12/2022 5:10 PM EST Physical Therapy Facility/Department: [facility] Physical Therapy Initial Assessment Name: [...] includes tumor removal (2014); knee surgery(Right, 2018); [place] tooth extraction; and Tonsillectomy. Assessment Body Structures, [...] Short Term Goal 2: CGA GAIT FWW. Reducing Machine Operator Goals Time Frame for Snf Goals : 4 WEEKS Reducing Machine Operator Goal 1: IND GAIT ST CANE. Patient [...] Minutes Ivania Singh PT * Sage Peng RPH - 06/12/2022 3:41 PM EST Images from the original note were not included. Pharmacist Review and Automatic Dose Adjustment of Prophylactic Enoxaparin The reviewing pharmacist has made an adjustment to the ordered enoxaparin dose or converted to UFH per the approved [facility] protocol and table as identified below. Júnior [...] responsible adult. N/A documented in this encounterBON [facility] [employer] Work Phone: 1(951) 398-884901-13-2023 Hospital Discharge instructions* Discharge Instructions* Kathi Jimenez [...] at most local grocery stores, pharmacies, and [employer]-stores. If you have any questions about your diet or nutrition, call the hospital and ask for the dietitian. Regular diet documented in this encounterBON [facility] [employer] Work Phone: 1([phone]) 894-211301-13-2023 Hospital course Narrative* Ajay Galvan MD - 06/13/2022 5:37 PM EST Physician Discharge Summary Patient ID: Júnior Rowland [id number] 1960 Admit date: 06/12/2022 Discharge date and [...] 5-325 MG per tablet Commonly known as: [place] Take 1-2 tablets by mouth every 4 hours as needed for Pain for up to 7 days. Max Daily Amount: 12 tablets Xarelto 10 MG Tabs tablet Generic drug: rivaroxaban Take 1 tablet by mouth daily (with breakfast) CONTINUE taking these medications celecoxib 200 MG capsule Commonly known as: CELEBREX Where to Get Your Medications These medications were sent to [facility] - [place], [place] - [address] - P [phone] - F [phone] [place] [address] HYDROcodone-acetaminophen 5-325 MG per tablet Xarelto 10 MG Tabs tablet Activity: Physical Therapy Wound Care: keep wound clean and dry, shower after 4 days if no drainage Other: Follow-up with AJAY GALVAN MD in 2 weeks. Signed: AJAY GALVAN MD, M.D. 06/13/2022 5:37 PM documented in this encounterBON [facility] [employer] Phone: [phone]) 232-294201-09-2023 History of Present illness Narrative* JOEY Durham [...] case. Implies understanding. documented in this encounterBON [employer] Phone: [phone]) 514-695812-19-2022 Evaluation note* Encounter Date Diagnosis Assessment Notes Treatment Notes Treatment Clinical Notes May, Preoperative examination (ICD-10 - Z01.818) Mr. Rowland is a 62 yo morbidly obese male with history of COTY, hyperlipidemia, prior iron deficiency anemia, remote history of septic bursitis in the R knee (2017), and fatty infiltration of the liver. He [...] go forward with surgery at this time. [facility] Other 12-12-2022 History of Present illness Narrative* Lola Moseley RN - 05/12/2022 2:00 PM EST Patient instructed on the pre-operative, intra-operative, and post-operative process. Patient instructed on NPO status. Medication instructions and pre operative instruction sheet reviewed with the patient. CHG skin prep instructions reviewed with patient. * Lola Moseley RN - 05/12/2022 2:00 PM EST [facility] Preadmission Testing Name: Júnior Rowland : 1960 [...] Yes [] No When/where: >10 YEARS AGO LEVYT Was it normal? [x] Yes [] No [...] and medical clearance. documented in this encounterBON [facility] [employer] Work Phone: 1([phone]) 140-715408-25-2022 Evaluation note* Encounter Date Diagnosis Assessment Notes Treatment Notes Treatment Clinical Notes Dec, Low back pain, unspecified (ICD-10 - M54.50) [facility] Other 08-15-2022 Evaluation note* Encounter Date Diagnosis Assessment Notes Treatment Notes Treatment Clinical Notes Dec, Low back pain, unspecified (ICD-10 - M54.50) [facility] Other 08-10-2022 Evaluation note* Encounter Date Diagnosis [...] and operating heavy machinery while using it. [facility] Other evaluation noteNortClarion Psychiatric Center [employer] Other evaluation noteNo InformationNortClarion Psychiatric Center [employer] Other evaluation noteNo assessment information available [facility] Work Phone: evaluation note* Diagnosis S/P TKR (total knee replacement) using cement, left- Primary S/P TKR (total knee replacement) using cement, left documented in this encounter [facility] Work Phone: evaluation note* Diagnosis Polyneuropathy- Primary Unspecified hereditary and idiopathic peripheral neuropathy documented in this encounter [facility]* Diagnosis Onset Date Resolution Status Admit Date BPH (benign prostatic hyperplasia) acute April 19 024 1:49pm Mixed hyperlipidemia acute [facility] 2023 1:49pm Morbid (severe) obesity due to excess calories acute April 1:49pm COTY (obstructive sleep apnea) acute April 19, 2024 1:49pm Other iron deficiency anemias acute April 19, 2024 1:49pm Screening for colon cancer noneactiv e April 19, 2024 1:49pm Encounter for wellness examination noneactive April 19 024 1:49pm Left foot pain noneactive April 012023 1:49pm [facility] Work Phone: Evaluation note* Diagnosis Polyneuropathy- Primary Unspecified hereditary and idiopathic peripheral neuropathy Painful legs and moving toes of left foot Other specified peripheral vascular diseases (CMS/HCC) documented in this encounter [facility]* Diagnosis Radiculopathy, lumbar region- Primary Thoracic or lumbosacral neuritis or radiculitis, unspecified Difficulty walking Difficulty in walking Weakness of both lower extremities documented in this encounter [facility]* Diagnosis Radiculopathy, lumbar region- Primary Thoracic or lumbosacral neuritis or radiculitis, unspecified Difficulty walking Difficulty in walking Weakness of both lower extremities documented in this encounter [facility] HealthcareHistory general Narrative - ReportedNort [facility] Other history general Narrative - Reported* Type Description Date Medical History Hx of MRSA Medical History Arthritis of knee Medical History Kidney stones 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 for wound care 10/31 018 [facility] Other epicuriodmuu general Narrative - Reported* Type Description Date [...] a wound Surgical History septic bursitis 2017 Hospitalization History see above Hospitalization History [facility] for wound care 10/31 018 [facility] Other history general Narrative - Reported* Type Description Date [...] 06/2022 Hospitalization History see above Hospitalization History [facility] for wound care 10/31 018 [facility] Other history general Narrative - Reported* Type Description Date [...] a wound Surgical History septic bursitis 2018 Surgical History left knee replacement 06/2022 Surgical History right knee replacement 03/16/20 Hospitalization History see above Hospitalization History [facility] for wound care 10/31 018 [facility] Other Reason for visit Narrative* Rehabilitation - Outpatient (Routine) - Authorized Specialty Diagnoses / Procedures Referred By Contac t Referred To Contact Physical Therapy Diagnoses Radiculopathy, lumbar region Pain in left foot Procedures DE PHYSICAL THERAPY EVALUATION LOW COMPLEX 20 MINS DE OFFICE/OUTPATIENT NEW HIGH MDM 60 MINUTES Alessandra Murillo MD [address] [place] [address] Phone: tel: fax: [facility] [address] [facility] [address] [place] [address] Phone: tel: fax: Referral ID Status Reason Start Date Expiration Date V isits Requested Visits Authorized [id number] Authorized 06/29/2024 08/27/2024 6 6 [facility] Summary Purpose Family History No Family History Records Found Relationship Condition Age at Onset Recorded Date/T jerzy grandparent Obesity Unknown mother Unknown Malignant neoplasm Unknown Advance Directives No Advanced Directives Records Found Advance Directive Response Recorded Date/ Time Advance [...] rt flank pain Chief Complaint Admit Date e66.01 April 13, 2024 10:59am annual April 19, 2024 [...] 19, 2024 1:49pm Chief Complaint Admit Date e66.01 April 13, 2024 10:59am annual April 19, 2024 1:49pm M79.672 - Pain in left foot April 2:44pm Chief Complaint Admit Date e66.01 April 13, 2024 10:59am annual April 19, 2024 [...] cancer April 1:49pm Encounter for wellness examination [facility] 2023 1:49pm Left foot pain April 19, 2024 1:49pm BPH (benign prostatic hyperplasia) Decem 2023 8:35am Morbid (severe) obesity due to excess ca lories May 27, 2024 8:35am Chief Complaint Admit Date Continuing prostate issues May 8:35am Cough, congestion, wheezing, shortness o f breath July 11, 2024 3:06pm [facility] f/u flu a, still has cough [...] section and content) DATE CREATED AUTHOR 03/20/2018 [facility] DATE CREATED AUTHOR AUTHOR'S ORGANIZ ATION 04/15/2018 [facility] DATE CREATED AUTHOR AUTHOR'S ORGANIZ ATION 03/25/2023 [facility] DATE CREATED AUTHOR AUTHOR'S ORGANIZ ATION 02/26/2024 [facility] DATE CREATED AUTHOR AUTHOR'S ORGANIZ ATION 04/25/2024 [facility] DATE CREATED AUTHOR AUTHOR'S ORGANIZ ATION 07/08/2024 [facility] DATE CREATED AUTHOR AUTHOR'S ORGANIZ ATION 09/27/2024 [facility] REASON FOR VISIT (unrecogniz ed section and content) Reason Onset Date Comments re: PT status and auth given 07/11/2024 FU 07/18/2024 Final 07/20/2024 Reason Comments Numbness 6 month Follow upPre-surgical exam- right knee replacement scheduled for 03/16/[address] Galvanscriptannual/possible circulation issue, cold foot, lower extremity pain and rednessupdatePre-surgical Exam Left total knee replacement scheduled 06/09/[address] Galvan at [facility] Specialty Diagnoses / Procedures Referred By Taty chakraborty Referred To Contact Diagnoses Arthritis of left knee LEFT KNEE ARTHRITIS Procedures DE ARTHRP KNE CONDYLE&PLATU MEDIAL&LAT COMPARTMENTS KNEE TOTAL ARTHROPLASTY Ajay Galvan MD [address] [place] [phone] [facility] [address] [place] [address] Referral ID Status Reason Start Date Expiration Date Visits Re quested Visits Authorized [id number] 1 1 Specialty Diagnoses / Procedures Referred By Taty chakraborty Referred To Contact Diagnoses Osteoarthritis of left knee, unspecified osteoarthritis type LEFT KNEE PRIMARY OSTEOARTHRITIS Procedures DE TOTAL KNEE ARTHROPLASTY KNEE TOTAL ARTHROPLASTY Ajay Galvan MD [address] [place] [phone] [facility] [address] [place] [address] Referral ID Status Reason Start Date Expiration Date Visits Re quested Visits Authorized [id number] 1 1 ER Follow upClinical Acute IllnessClinical Acute Medicineright leg sciatica painReferralrefillBARIATRIC SURGERY Care Teams (unrecognized sec tion and content) Team Status: Active Member Role Status Dates Bakari White , Primary Care Provider Active Team Status: Inactive Member Role Status Dates Bakari White DO Primary Care Prov ider, Attending Provider Active Start: April 13, 2024 End: April 13, 2024 Team Status: Inactive Member Role Status Dates Bakari White , Primary Care Provider Active Fred Diehl PA-C Emergency Provider Active Team Status: Inactive Member Role Status Dates Bakari White DO Primary Care Provider, Attendin g Provider Active Assistant Editor Relationship Specialty Start Date End Date Fatou Ridley MD [address] [place] [address] PCP - General 06/13/22 Assistant Editor Relationship Specialty Start Date End Date Bakari White MD NPI: PCP - General Family Medicine 04/07/23 Assistant Editor Relationship Specialty Start Date End Date Bakari White MD NPI: PCP - General Family Medicine 04/07/23 Team Status: Inactive Member Role Status Dates Bakari White DO Primary Care Prov ider, Attending Provider Active Start: April 19, 2024 End: April 19, 2024 Assistant Editor Relationship Specialty Start Date End Date Bakari White MD [address] [place] [phone] PCP - General Family Medicine 04/11/24 Elda Bryant MD [address] [place] [address] Referring Physician Neurology 04/11/24 Darlene Brito PA [address] [place] [address] Physician Instrumentation Engineering Technician Neurology 04/11/24 Eugenia Davis PA [address] [place] [address] Physician Instrumentation Engineering Technician Neurology 04/11/24 Assistant Editor Relationship Specialty Start Date End Date Bakari White MD [address] [place] [phone] PCP - General Family Medicine 04/11/24 Elda Bryant MD [address] [place] [address] Referring Physician Neurology 04/11/24 Darlene Brito PA [address] [place] [address] Physician Instrumentation Engineering Technician Neurology 04/11/24 Eugenia Davis PA [address] [place] [address] Physician Instrumentation Engineering Technician Neurology 04/11/24 Assistant Editor Relationship Specialty Start Date End Date Bakari White MD [address] [place] [phone] PCP - General Family Medicine 04/11/24 Elda Bryant MD [address] [place] [address] Referring Physician Neurology 04/11/24 Darlene Brito PA [address] [place] [address] Physician Instrumentation Engineering Technician Neurology 04/11/24 Eugenia Davis PA [address] [place] [address] Physician Instrumentation Engineering Technician Neurology 04/11/24 Assistant Editor Relationship Specialty Start Date End Date Bakari White MD NPI: [id number] [place] [phone] PCP - General Family Medicine 04/11/24 Elda Bryant MD [address] [place] [address] Referring Physician Neurology 04/11/24 Darlene Brito PA [address] [place] [address] Physician Instrumentation Engineering Technician Neurology 04/11/24 Eugenia Davis PA [address] [place] [address] Physician Instrumentation Engineering Technician Neurology 04/11/24 Assistant Editor Relationship Specialty Start Date End Date Bakari White MD [address] [place] [place] [phone] PCP - General Family Medicine 04/11/24 Elda Bryant MD [address] [place] [address] Referring Physician Neurology 04/11/24 Darlene Brito PA [address] [place] [address] Physician Instrumentation Engineering Technician Neurology 04/11/24 Eugenia Davis PA [address] [facility] [address] [place] [address] Physician Instrumentation Engineering Technician Neurology 04/11/24 Assistant Editor Relationship Specialty Start Date End Date Bakari White MD [address] [place] [address] PCP - General Family Medicine 04/11/24 Elda Bryant MD [address] [place] [address] Referring Physician Neurology 04/11/24 Darlene Brito PA [address] [facility] [address] [place] [address] Physician Instrumentation Engineering Technician Neurology 04/11/24 Eugenia Davis PA [address] [facility] [address] [facility] [place] [address] Physician Instrumentation Engineering Technician Neurology 04/11/24 Team Status: Inactive Member Role [...] July 19, 2024 End: July 19, 2024 Assistant Editor Relationship Specialty Start Date End Date Bakari White MD NPI: [id number] [place] [address] PCP - General Family Medicine 04/11/24 Elda Bryant MD [address] [place] [address] Referring Physician Neurology 04/11/24 Darlene Brito PA [address] [place] [address] Physician Instrumentation Engineering Technician Neurology 04/11/24 Eugenia Davis PA [address] [place] [address] Physician Instrumentation Engineering Technician Neurology 04/11/24 Goals (unrecognized section and content) [...] Nicky Álvarez RN)0926 (Given - Provider: Tanesha Fall, ADRIANNE)1641 (Given - Provider: Tanesha Fall RN)2200 (Due) [...] Provider: Nicky Álvarez RN - Comment: medication mixed)0204 (Stopped - Provider: Nicky Álvarez RN) celecoxib [...] Other, Other Enoxaparin Indication: post op, Post-op 0731 (Given - Provid er: Tanesha Fall RN)2100 (Due) sodium chloride flush 0.9 % injection [...] mL/lumen, Post-op 2053 (Not Given - Provider: Nikcy Álvarez RN - Reason: IV Fluid Infusing) [...] Provider: Ida Ernst RN)1023 (NoRateChange - Provider: JOEY Durham CRNA)1254 (Paused - Provider: JOEY Bernal CRNA - Comment: Switch to gravity)1255 (New Bag - Provider: JOEY Bernal CRNA)1412 (Anesthesia Volume Adjustment - Provider: JOEY Bernal CRNA)1538 (Stopped - Provider: Kathi Jimenez RN - [...] 1920 (Given - Provider: Nicky Álvarez RN) 09 (Given - Provider: Tanesha Fall, ADRIANNE)1754 (Given - Provider: Tanesha Fall RN) vcehwfker-egvhankbknk-kayva ine 60-150-60 MG/50ML injection (CANCELED) PRN, Starting on Whit 06/12/22 at 1205, Until Whit 06/12/22 at 1411, Intra-op 1205 (Given - Provider: Ajay Galvan MD - Comment: 50ml 0.9% NS added to BKK solution prior to injection to left knee. BUD: 06/12/22 1248 preparation: - compounded pharmacy product) sodium chloride (PF) [...] g injection (COMPLETED) 1 dose, Starting on Whit 06/12/22 at 1858, Until Whit 06/12/22 at 1915, Nicky Álvarez: cabinet override, Nicky [...] at 1857, For 1 dose, Nicky Álvarez: cabinet override 191 (New Bag - Provider: Nicky Álvarez RN - Comment: mixed medication for ancef)1950 (Stopped - Provider: Nicky Álvarez RN) dextrose 5 % solution (COMPLETED) Starting on Thu06/13/22 at 0115, For 1 dose, Nicky Álvarez: beatrisinemylene override 012 (New Bag - Provider: Nicky Álvarez RN [...] BE BASED ON THE PRIMARY CLINICAL RECORDS. [facility] [employer] [facility]. provides no warranty or guarantee of the accuracy or completeness of information in this document.
[2024-10-10 09:44] VITALS: BP 153/91; PULSE 64; TEMP 36.3; O2SAT 99
[2024-10-10 10:11] VITALS: BP 208/114; PULSE 68; O2SAT 98
[2024-10-10 10:13] VITALS: BP 180/102; PULSE 69; O2SAT 100
--- NOTE | 2024-10-10 10:17 | W.PM.PROCNOT ---
Date of procedure: 10/10/24 Pre-op diagnosis: Pain due to left sciatica Post-op diagnosis: same as pre-op Procedure: Procedure: Left distal sciatic nerve block Medications: Bupivacaine 0.25% 4cc, depomedrol 40mg After informed consent was obtained and placed on the chart, the patient was brought to the medical procedures unit and placed in the prone position.? A timeout was completed verifying correct patient, procedure, site, positioning, and planned special equipment.? The area overlying the left popliteal fossa was prepped and draped using aseptic technique. Ultrasound guidance was used to find the distal sciatic nerve, just before it branches into the tibial and common peroneal nerves. A 22-gauge, 4-inch Stimuplex needle with active tip was advanced through a skin wheal raised with 2% lidocaine in the area overlying the site of insertion. The needle was advanced until it abutted the sciatic nerve. A test injection was given with 1cc of the above solution, which showed appropriate spread around the sciatic nerve. ? The above-mentioned injectate was placed in three 1 mL aliquots preceded by negative aspiration without sequelae.? The needle was removed.? The needle insertion site was covered.? The patient was taken to the postprocedural recovery area and monitored for the appropriate length of time, and when the patient was found suitable for discharge in the accompaniment of a responsible adult. Anesthesia: Local Surgeon: Apolonia Coleman Pathology: none sent Condition: stable Disposition: no change
[2024-10-10] MEDS: LIDOCAINE HCL 2% PF 100 MG/5 ML VIAL 3 ML INJ (10:18)
[2024-10-10] MEDS: METHYLPREDNISOLONE ACETATE 80 MG/ML VIAL INJ (10:18)
[2024-10-10] MEDS: IOHEXOL 240 MG/ML - 50 ML VIAL 72 MG INJ (10:18)
[2024-10-10] MEDS: 0.9 % SODIUM CHLORIDE 10 ML SYRINGE - SALINE FLUSH 2 ML INJ (10:18)
[2024-10-10] MEDS: BUPIVACAINE HCL 0.25% PF 25 MG/10 ML VIAL 2 ML INJ (10:18)
== END 2024-10-10 10:23 | disposition home or self-care (01) ==
LOC: SURGOUT 08:45
PROVIDERS: Visit Provider Anesthesiology
DX: M54.42 Lumbago with sciatica, left side (principal)
CPT/HCPCS: 64445; J0665; J1010; Q9966

== ENCOUNTER 2024-10-19 09:42 | Outpatient (OUT) | payer BC, SELFPAY ==
--- OUTSIDE RECORDS SUMMARY | 2024-10-19 09:45 | XMS_ITS | CCD ---
Author Organization [facility] Inform ion [facility] Care Team Providers Care Slip Cover Estimator Name Role Phone EBRAHEIM, ALEK Unavailable Unavailable EBRAHEIM, ALEK Unavailable Unavailable STEPANIC, KRISTIE C Unavailable Unavailable LUIS, FATOU Unavailable Unavailable CT Unavailable Unavailable EBRAHEIM, ALEK Unavailable Unavailable ROXANN, MEG M Unavailable Unavailable ROXANN, MEG M Unavailable Unavailable ROXANN, MEG M Unavailable Unavailable LUIS, FATOU Unavailable Unavailable EBRAHEIM, ALEK Unavailable Unavailable EBRAHEIM, ALEK Unavailable Unavailable LUIS, FATOU Unavailable Unavailable LUIS, FATOU Unavailable Unavailable CT Unavailable Unavailable EBRAHEIM, ALEK Unavailable Unavailable CT Unavailable Unavailable CASABIANCA, ABEL Unavailable Unavailable EBRAHEIM, [...] Unavailable DO Bakari White Primary Care Provider DO Bakari White Attending Provider SALOMON Diehl Emergency Provider Unavailable Primary Care Provider Fatou Levy MD [...] Care Provider Christopher ELIZABETH, Bakari Attending Provider [phone] Christopher OCONNOR, Bakari Moise Primary Care Provider [phone] Elda Bryant MD Unavailable Darlene Salcedo Unavailable Eugenia Torres [...] cephalexin Drug Allergy 11-02-2017 AOF, RASH [facility] Repository (1 source) vancomycin; Translations: [VANCOMYCIN] Drug Allergy 11-20-2017 [facility] Repository (18 sources) Cephalexin Drug Allergy rash [employer] Other (1 source) Cephalexin Drug Allergy 04-19-2024 [facility] Repository Medications Current Medications Medication Drug Class(es) [...] P O Q6H 05 03January 29, 2022 [id number] 200 actuat albuterol 0.09 mg/actuat metered dose [...] spray(s) by inhalation three times daily Ipratropium [place] 0.06 % 2 sprays in each nostril [...] Onset: 05-29-2023 Episodic 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; Translations: [MCC CURRNT USE ANTICOAGULANTS] Onset: 11-02-2017 Episodic Other [...] A virus antibody titer by complement fixation [facility] Influenza virus B Ab [Titer] in Serum by Complement fixationon 07-11-2024 FLUBV Ab CF (S) [Titer] Influenza virus B Ab [Titer] in Serum by Complement fixation [facility] X-ray reportOrdered By: Chaparrita Shepherd on 04-19-2024 Study report [facility] [address] [place] [address] XRay Report Signed Patient: Júnior Rowland MR#: [id number] : 1960 Acct:[id number] Age/Sex: 64 / M ADM Date: 4 Loc: [facility] Room: Type: [facility] Attending Dr: Bakari White DO Copies [...] Dianne Shepherd M.D.04/19/2024 4:20 PM Dictation Location: [place] [address] Transcribed By: [facility] 04/19/24 1620 Dictated By: Dianne Shepherd MD 04/19/24 1613 Signed By: 04/19/24 2247 [facility] Work Phone: XR foot LT min 3V*on 024 XR foot LT min 3V* [facility] [place] [facility] [address] [place] [address] XRay Report Signed Patient: Júnior Rowland MR#: [id number] : 1960 Acct:[id number] Age/Sex: 64 / M ADM Date: 04/19/24 Loc: [facility] Room: Type: [facility] Attending Dr: Bakari White DO Copies [...] Dianne Shepherd M.D.04/19/2024 4:20 PM Dictation Location: [place] [address] Transcribed By: [facility] 04/19/24 1620 Dictated By: Dianne Shepherd MD 04/19/24 1618 Signed By: 04/19/24 1620 Normal [facility] Alanine aminotransferase [En zymatic activity/volume] in Serum or PlasmaOrdered By: Bakari White on 04-13-2024 ALT [Catalytic activity/Vol] Alanine aminotransferase [Enzymatic activity/volume] in Serum or Plasma [facility] Albumin [Mass/volume] in Ser um or Plasma by Bromocresol green (BCG) dye binding methoOrdered By: Bakari White on 04-13-2024 Albumin BCG dye [Mass/Vol] Albumin [Mass/volume] in Serum or Plasma by Bromocresol green (BCG) dye binding metho 3.5-5.7 [facility] Alkaline phosphatase [Enzyma tic activity/volume] in Serum or PlasmaOrdered By: Bakari White on 04-13-2024 ALP [Catalytic activity/Vol] Alkaline phosphatase [Enzymatic activity/volume] in Serum or Plasma 34-104 [facility] Aspartate aminotransferase [ Enzymatic activity/volume] in Serum or PlasmaOrdered By: Bakari White on 04-13-2024 AST [Catalytic activity/Vol] Aspartate aminotransferase [Enzymatic activity/volume] in Serum or Plasma 13-39 [facility] Basophils Auto (Bld) [#/Vol] Ordered By: Bakari White on 04-13-2024 Basophils (Bld) [#/Vol] Automated basophil count 0.0-0.2 [facility] Basophils/100 WBC Auto (Bld) Ordered By: Bakari White on 04-13-2024 Basophils/100 WBC (Bld) Automated basophil % . [facility] Bilirubin.total [Mass/volume ] in Serum or PlasmaOrdered By: Bakari White on 04-13-2024 Bilirubin [Mass/Vol] Bilirubin.total [Mass/volume] in Serum or Plasma 0.3-1.0 [facility] Calcium [Mass/volume] in Ser um or PlasmaOrdered By: Bakari White on 04-13-2024 Calcium [Mass/Vol] Calcium [Mass/volume ] in Serum or Plasma 8.6-10.3 [facility] Carbon dioxide, total [Moles /volume] in Serum or PlasmaOrdered By: Bakari White on 04-13-2024 CO2 [Moles/Vol] Carbon dioxide, tota l [Moles/volume] in Serum or Plasma High 21.0-31.0 [facility] Chloride [Moles/volume] in S tobias or PlasmaOrdered By: Bakari White on 04-13-2024 Chloride [Moles/Vol] Chloride [Moles/vol ume] in Serum or Plasma 98-107 [facility] Cholesterol [Mass/volume] in Serum or PlasmaOrdered By: Bakari White on 04-13-2024 Cholesterol [Mass/Vol] Cholesterol [Mass/volume] in Serum or Plasma 140-200 [facility] Comment on above: Chol less than 200 m g/dl low riskChol 201-239 mg/dl borderline riskChol 240 mg/dl and greater high risk Cholesterol in HDL [Mass/vol ume] in Serum or PlasmaOrdered By: Bakari White on 04-13-2024 Cholesterol in HDL [Mass/Vol] Serum or plasma high density lipoprotein (HDL) cholesterol measurement 23-92 [facility] Comment on above: HDL CHOL ATP-III CLA SSIFICATION Cardiovascular RiskHDL > or equal to 60 mg/dL LOWHDL < 40 mg/dL HIGH Cholesterol in LDL Calc [Mas s/Vol]Ordered By: Bakari White on 04-13-2024 Cholesterol in LDL [Mass/Vol] Cholesterol in LDL [Mass/volume] in Serum or Plasma by calculation High 0-100 [facility] Comment on above: LDL ATP III CLASSIFI CATIONLDL less than 100 mg/dL OptimalLDL 100-129 mg/dL Near or above optimalLDL 130-159 mg/dL Borderline highLDL 160-189 mg/dL HighLDL greater than 189 mg/dL Very high Cholesterol in VLDL Calc [Ma ss/Vol]Ordered By: Bakari White on 04-13-2024 Cholesterol in VLDL [Mass/Vol] Cholesterol in VLDL [Mass/volume] in Serum or Plasma by calculation [facility] Complete Blood Count Auto Di ffon 04-13-2024 Basophils (Bld) [#/Vol] 0.1 10*3/uL Normal 0.0-0.2 [facility] Comment on above: Order Comment: Reaso n for Exam Morbid (severe) obesity due to excess calories;Body mass ind Result Comment: PERF ORMED BY: [place] [address] PATHOLOGIST EQUINE BREEDER CHARLY JOSHI M.D. Performed By: #### P SAS, CMP, CBC, TSH3 wRFLX, LIPID #### [address] Basophils/100 WBC (Bld) 1.0 % Normal . [facility] Comment on above: Order Comment: Reaso n for Exam Morbid (severe) obesity due to excess calories;Body mass ind Performed By: #### P SAS, CMP, CBC, TSH3 wRFLX, LIPID #### [address] Eosinophils (Bld) [#/Vol] 0.2 10*3/uL Normal 0.0-0.45 [facility] Comment on above: Order Comment: Reaso n for Exam Morbid (severe) obesity due to excess calories;Body mass ind Performed By: #### P SAS, CMP, CBC, TSH3 wRFLX, LIPID #### [address] Eosinophils/100 WBC (Bld) 3.3 % Normal . [facility] Comment on above: Order Comment: Reaso n for Exam Morbid (severe) obesity due to excess calories;Body mass ind Performed By: #### P SAS, CMP, CBC, TSH3 wRFLX, LIPID #### [address] Erythrocyte distribution width (RBC) [Ratio] 14.1 % Normal 12.0-14.8 [facility] Comment on above: Order Comment: Reaso n for Exam Morbid (severe) obesity due to excess calories;Body mass ind Performed By: #### P SAS, CMP, CBC, TSH3 wRFLX, LIPID #### [address] Hematocrit (Bld) [Volume fraction] 39.4 % Normal 38.8-50.0 [facility] Comment on above: Order Comment: Reaso n for Exam Morbid (severe) obesity due to excess calories;Body mass ind Performed By: #### P SAS, CMP, CBC, TSH3 wRFLX, LIPID #### [address] Hemoglobin (Bld) [Mass/Vol] 13.1 g/dL Normal 13.0-17.0 [facility] Comment on above: Order Comment: Reaso n for Exam Morbid (severe) obesity due to excess calories;Body mass ind Performed By: #### P SAS, CMP, CBC, TSH3 wRFLX, LIPID #### [address] Lymphocytes (Bld) [#/Vol] 1.1 10*3/uL Normal 1.00-4.8 [facility] Comment on above: Order Comment: Reaso n for Exam Morbid (severe) obesity due to excess calories;Body mass ind Performed By: #### P SAS, CMP, CBC, TSH3 wRFLX, LIPID #### [address] Lymphocytes/100 WBC (Bld) 18.9 % Normal . [facility] Comment on above: Order Comment: Reaso n for Exam Morbid (severe) obesity due to excess calories;Body mass ind Performed By: #### P SAS, CMP, CBC, TSH3 wRFLX, LIPID #### [address] MCH (RBC) [Entitic mass] 28.4 pg Normal 27.5-35.2 [facility] Comment on above: Order Comment: Reaso n for Exam Morbid (severe) obesity due to excess calories;Body mass ind Performed By: #### P SAS, CMP, CBC, TSH3 wRFLX, LIPID #### [address] MCV (RBC) [Entitic vol] 85.6 fL Normal 83.5-101 [facility] Comment on above: Order Comment: Reaso n for Exam Morbid (severe) obesity due to excess calories;Body mass ind Performed By: #### P SAS, CMP, CBC, TSH3 wRFLX, LIPID #### [address] Mean Corpuscular HGB Conc 33.1 g/dL Normal 32.5-35.6 [facility] Comment on above: Order Comment: Reaso n for Exam Morbid (severe) obesity due to excess calories;Body mass ind Performed By: #### P SAS, CMP, CBC, TSH3 wRFLX, LIPID #### [address] Monocytes (Bld) [#/Vol] 0.4 10*3/uL Normal 0.0-0.8 [facility] Comment on above: Order Comment: Reaso n for Exam Morbid (severe) obesity due to excess calories;Body mass ind Performed By: #### P SAS, CMP, CBC, TSH3 wRFLX, LIPID #### [facility] [address] [place] [address] [place] Monocytes/100 WBC (Bld) 6.2 % Normal . [facility] Comment on above: Order Comment: Reaso n for Exam Morbid (severe) obesity due to excess calories;Body mass ind Performed By: #### P SAS, CMP, CBC, TSH3 wRFLX, LIPID #### [facility] [address] [place] [address] [place] Neutrophils (Bld) [#/Vol] 4.1 10*3/uL Normal 1.8-7.7 [facility] Comment on above: Order Comment: Reaso n for Exam Morbid (severe) obesity due to excess calories;Body mass ind Performed By: #### P SAS, CMP, CBC, TSH3 wRFLX, LIPID #### [place] [address] [place] Neutrophils/100 WBC (Bld) 70.6 % Normal . [facility] Comment on above: Order Comment: Reaso n for Exam Morbid (severe) obesity due to excess calories;Body mass ind Performed By: #### P SAS, CMP, CBC, TSH3 wRFLX, LIPID #### [place] [address] [place] NRBC% 0.2 /100{WBC} Normal 0-0.5 [facility] Comment on above: Order Comment: Reaso n for Exam Morbid (severe) obesity due to excess calories;Body mass ind Performed By: #### P SAS, CMP, CBC, TSH3 wRFLX, LIPID #### [facility] [address] [place] [id number] [place] Platelet mean volume (Bld) [Entitic vol] 8.2 fL Normal 6.6-10.1 [facility] Comment on above: Order Comment: Reaso n for Exam Morbid (severe) obesity due to excess calories;Body mass ind Performed By: #### P SAS, CMP, CBC, TSH3 wRFLX, LIPID #### [address] Platelets (Bld) [#/Vol] 250 10*3/uL Normal 150-450 [facility] Comment on above: Order Comment: Reaso n for Exam Morbid (severe) obesity due to excess calories;Body mass ind Performed By: #### P SAS, CMP, CBC, TSH3 wRFLX, LIPID #### [address] RBC (Bld) [#/Vol] 4.60 10*6/uL Normal 3.90-5.60 [facility] Comment on above: Order Comment: Reaso n for Exam Morbid (severe) obesity due to excess calories;Body mass ind Performed By: #### P SAS, CMP, CBC, TSH3 wRFLX, LIPID #### [address] WBC (Bld) [#/Vol] 5.8 10*3/uL Normal 4.1-10.5 [facility] Comment on above: Order Comment: Reaso n for Exam Morbid (severe) obesity due to excess calories;Body mass ind Performed By: #### P SAS, CMP, CBC, TSH3 wRFLX, LIPID #### [address] Comprehensive Metabolic Pane [facility] 04-13-2024 Albumin [Mass/Vol] 4.3 g/dL Normal 3.5-5.7 [facility] Comment on above: Order Comment: Reaso n for Exam Morbid (severe) obesity due to excess calories;Body mass ind Performed By: #### P SAS, CMP, CBC, TSH3 wRFLX, LIPID #### [address] Albumin/Globulin [Mass ratio] 1.3 {ratio} Normal [facility] Comment on above: Order Comment: Reaso n for Exam Morbid (severe) obesity due to excess calories;Body mass ind Performed By: #### P SAS, CMP, CBC, TSH3 wRFLX, LIPID #### [place] [address] [facility] ALP [Catalytic activity/Vol] 56 U/L Normal 34-104 [facility] Comment on above: Order Comment: Reaso n for Exam Morbid (severe) obesity due to excess calories;Body mass ind Performed By: #### P SAS, CMP, CBC, TSH3 wRFLX, LIPID #### [facility] [address] [place] [id number] [facility] ALT [Catalytic activity/Vol] 19 U/L Normal 7-52 [facility] Comment on above: Order Comment: Reaso n for Exam Morbid (severe) obesity due to excess calories;Body mass ind Performed By: #### P SAS, CMP, CBC, TSH3 wRFLX, LIPID #### [facility] [address] Anion gap [Moles/Vol] 11.9 mmol/L Normal 6.0-15.0 [facility] Comment on above: Order Comment: Reaso n for Exam Morbid (severe) obesity due to excess calories;Body mass ind Performed By: #### P SAS, CMP, CBC, TSH3 wRFLX, LIPID #### [facility] [address] [place] [id number] [place] AST [Catalytic activity/Vol] 19 U/L Normal 13-39 [facility] Comment on above: Order Comment: Reaso n for Exam Morbid (severe) obesity due to excess calories;Body mass ind Performed By: #### P SAS, CMP, CBC, TSH3 wRFLX, LIPID #### [facility] [address] [place] [id number] [place] Bilirubin [Mass/Vol] 0.5 mg/dL Normal 0.3-1.0 The [facility] Comment on above: Order Comment: Reaso n for Exam Morbid (severe) obesity due to excess calories;Body mass ind Performed By: #### P SAS, CMP, CBC, TSH3 wRFLX, LIPID #### [facility] [address] [place] [id number] [place] Calcium [Mass/Vol] 9.3 mg/dL Normal 8.6-10.3 The [facility] Comment on above: Order Comment: Reaso n for Exam Morbid (severe) obesity due to excess calories;Body mass ind Performed By: #### P SAS, CMP, CBC, TSH3 wRFLX, LIPID #### [facility] [address] Chloride [Moles/Vol] 102 mmol/L Normal 98-107 [facility] Comment on above: Order Comment: Reaso n for Exam Morbid (severe) obesity due to excess calories;Body mass ind Performed By: #### P SAS, CMP, CBC, TSH3 wRFLX, LIPID #### [facility] [address] CO2 [Moles/Vol] 31.6 mmol/L High 21.0-31.0 [facility] Comment on above: Order Comment: Reaso n for Exam Morbid (severe) obesity due to excess calories;Body mass ind Performed By: #### P SAS, CMP, CBC, TSH3 wRFLX, LIPID #### [address] Creatinine [Mass/Vol] 0.86 mg/dL Normal 0.70-1.30 [facility] Comment on above: Order Comment: Reaso n for Exam Morbid (severe) obesity due to excess calories;Body mass ind Performed By: #### P SAS, CMP, CBC, TSH3 wRFLX, LIPID #### [address] GFR/1.73 sq M.predicted MDRD (S/P/Bld) [Vol rate/Area] mL/min/{1.73_m2} Normal [facility] Comment on above: Order Comment: Reaso n for Exam Morbid (severe) obesity due to excess calories;Body mass ind Performed By: #### P SAS, CMP, CBC, TSH3 wRFLX, LIPID #### [facility] [address] [place] [address] [place] Globulin (S) [Mass/Vol] 3.4 g/dL Normal The [facility] Comment on above: Order Comment: Reaso n for Exam Morbid (severe) obesity due to excess calories;Body mass ind Performed By: #### P SAS, CMP, CBC, TSH3 wRFLX, LIPID #### [facility] [address] [place] [id number] [facility] Glucose [Mass/Vol] 98 mg/dL Normal 70-100 [facility] Comment on above: Order Comment: Reaso n for Exam Morbid (severe) obesity due to excess calories;Body mass ind Result Comment: [facility] Glucose Reference Range is dependent on time and content of last meal. Glucose of more than 200 mg/dL in a nonstressed, ambulatory subject supports the diagnosis of Diabetes Mellitus. ADA recommended reference range Performed By: #### P SAS, CMP, CBC, TSH3 wRFLX, LIPID #### [facility] [address] Potassium [Moles/Vol] 4.5 mmol/L Normal 3.5-5.1 [facility] Comment on above: Order Comment: Reaso n for Exam Morbid (severe) obesity due to excess calories;Body mass ind Performed By: #### P SAS, CMP, CBC, TSH3 wRFLX, LIPID #### [facility] [address] Protein [Mass/Vol] 7.7 g/dL Normal 6.4-8.9 [facility] Comment on above: Order Comment: Reaso n for Exam Morbid (severe) obesity due to excess calories;Body mass ind Performed By: #### P SAS, CMP, CBC, TSH3 wRFLX, LIPID #### [place] [address] [place] Sodium [Moles/Vol] 141 mmol/L Normal 136-145 [facility] Comment on above: Order Comment: Reaso n for Exam Morbid (severe) obesity due to excess calories;Body mass ind Performed By: #### P SAS, CMP, CBC, TSH3 wRFLX, LIPID #### [facility] [address] [place] [id number] [place] Urea nitrogen [Mass/Vol] 18 mg/dL Normal 7-25 The [facility] Comment on above: Order Comment: Reaso n for Exam Morbid (severe) obesity due to excess calories;Body mass ind Performed By: #### P SAS, CMP, CBC, TSH3 wRFLX, LIPID #### [facility] [address] [place] [address] [facility] Creatinine [Mass/volume] in Serum or PlasmaOrdered By: Bakari White on 04-13-2024 Creatinine [Mass/Vol] Creatinine [Mass/v olume] in Serum or Plasma 0.70-1.30 [facility] Eosinophils Auto (Bld) [#/Vo l]Ordered By: Bakari White on 04-13-2024 Eosinophils (Bld) [#/Vol] Automated eosinophil count 0.0-0.45 [facility] Eosinophils/100 WBC Auto (Bl d)Ordered By: Bakari White on 04-13-2024 Eosinophils/100 WBC (Bld) Automated eosinophil % . [facility] Erythrocyte distribution wid th Auto (RBC) [Ratio]Ordered By: Bakari White on 04-13-2024 Erythrocyte distribution width (RBC) [Ratio] Erythrocyte distribution width [Ratio] by Automated count 12.0-14.8 [facility] Globulin Calc (S) [Mass/Vol] Ordered By: Bakari White on 04-13-2024 Globulin (S) [Mass/Vol] Serum globulin measurement by calculation (mass/volume) [facility] Glucose [Mass/volume] in Ser um or PlasmaOrdered By: Bakari White on 04-13-2024 Glucose [Mass/Vol] Glucose [Mass/volume ] in Serum or Plasma 70-100 [facility] Comment on above: ADA recommended refe rence rangeRandom Glucose Reference Range is dependent on time and content of last meal. Glucose of more than 200 mg/dL in a nonstressed, ambulatory subject supports the diagnosis of Diabetes Mellitus. Hematocrit Auto (Bld) [Volum e fraction]Ordered By: Bakari White on 04-13-2024 Hematocrit (Bld) [Volume fraction] Hematocrit [Volume Fraction] of Blood by Automated count 38.8-50.0 [facility] Hemoglobin [Mass/volume] in BloodOrdered By: Bakari White on 04-13-2024 Hemoglobin (Bld) [Mass/Vol] Hemoglobin [Mass/volume] in Blood 13.0-17.0 [facility] Leukocytes [#/volume] correc maggy for nucleated erythrocytes in Blood by Automated counOrdered By: Bakari Whiet on 04-13-2024 WBC corrected for nucl RBC Auto (Bld) [#/Vol] Leukocytes [#/volume] corrected for nucleated erythrocytes in Blood by Automated coun 4.1-10.5 [facility] Lipid Panelon 04-13-2024 Cholesterol [Mass/Vol] 192 mg/dL Normal 140-200 Th e [facility] Comment on above: Order Comment: Reaso n for Exam Morbid (severe) obesity due to excess calories;Body mass ind Result Comment: Chol less than 200 mg/dl low risk Chol 201-239 mg/dl borderline risk Chol 240 mg/dl and greater high risk Performed By: #### P SAS, CMP, CBC, TSH3 wRFLX, LIPID #### [facility] [address] Cholesterol in HDL [Mass/Vol] 47 mg/dL Normal 23-92 [facility] Comment on above: Order Comment: Reaso n for Exam Morbid (severe) obesity due to excess calories;Body mass ind Result Comment: HDL CHOL ATP-III CLASSIFICATION Cardiovascular Risk HDL > or equal to 60 mg/dL LOW HDL < 40 mg/dL HIGH Performed By: #### P SAS, CMP, CBC, TSH3 wRFLX, LIPID #### [facility] [address] [place] [id number] [facility] Cholesterol.total/Chol esterol in HDL [Mass ratio] 4.1 {ratio} Normal <5.0 The [facility] Comment on above: Order Comment: Reaso n for Exam Morbid (severe) obesity due to excess calories;Body mass ind Performed By: #### P SAS, CMP, CBC, TSH3 wRFLX, LIPID #### [facility] [address] [place] [id number] [place] LDL Cholesterol,Calculated 116 mg/dL High 0-100 The [facility] Comment on above: Order Comment: [...] SAS, CMP, CBC, TSH3 wRFLX, LIPID #### [facility] [address] Triglyceride w/Reflex 147 mg/dL Normal 0-149 The [facility] Comment on above: Order Comment: [...] SAS, CMP, CBC, TSH3 wRFLX, LIPID #### [facility] [address] VLDL CHOLESTEROL 29 mg/dL Normal The [facility] Comment on above: Order Comment: Reaso n for Exam Morbid (severe) obesity due to excess calories;Body mass ind Performed By: #### P SAS, CMP, CBC, TSH3 wRFLX, LIPID #### [facility] [address] Lymphocytes Auto (Bld) [#/Vo l]Ordered By: Bakari White on 04-13-2024 Lymphocytes (Bld) [#/Vol] Lymphocytes [#/volume] in Blood by Automated count 1.00-4.8 [facility] Lymphocytes/100 WBC Auto (Bl d)Ordered By: Bakari White on 04-13-2024 Lymphocytes/100 WBC (Bld) Lymphocytes/100 leukocytes in Blood by Automated count . [facility] MCH Auto (RBC) [Entitic mass ]Ordered By: Bakari White on 04-13-2024 MCH (RBC) [Entitic mass] MCH [Entitic mass] by Automated count 27.5-35.2 [facility] MCHC Auto (RBC) [Mass/Vol]Or dered By: Bakari White on 04-13-2024 MCHC (RBC) [Mass/Vol] MCHC [Mass/volume] by Automated count 32.5-35.6 [facility] MCV Auto (RBC) [Entitic vol] Ordered By: Bakari White on 04-13-2024 MCV (RBC) [Entitic vol] MCV [Entitic volume] by Automated count 83.5-101 [facility] Monocytes Auto (Bld) [#/Vol] Ordered By: Bakari White on 04-13-2024 Monocytes (Bld) [#/Vol] Automated blood monocyte count 0.0-0.8 [facility] Monocytes/100 WBC Auto (Bld) Ordered By: Bakari White on 04-13-2024 Monocytes/100 WBC (Bld) Automated monocyte % . [facility] Neutrophils Auto (Bld) [#/Vo l]Ordered By: Bakari White on 04-13-2024 Neutrophils (Bld) [#/Vol] Neutrophils [#/volume] in Blood by Automated count 1.8-7.7 [facility] Neutrophils/100 WBC Auto (Bl d)Ordered By: Bakari White on 04-13-2024 Neutrophils/100 WBC (Bld) Automated neutrophil % . [facility] No Panel InformationOrdered By: Bakari White on 04-13-2024 Estimated GFR (CKD-EPI) > 60.0 mL/Min [facility] Creatinine Clearance (Chem N/A [facility] Nucleated erythrocytes [Pres ence] in Blood by Automated countOrdered By: Bakari White on 04-13-2024 Nucleated RBC Auto Ql (Bld) Nucleated erythrocytes [Presence] in Blood by Automated count 0-0.5 [facility] PSA Screen (Yearly Only)on 06-13-2023 PSA Screen (Yearly Only) 0.180 ng/mL Normal 0.000-4.000 The Pending Sale To [facility] Comment on above: Order Comment: Reaso n for Exam Morbid (severe) obesity due to excess calories;Body mass ind Result Comment: Matias uriarte tumor marker results determined by assays using different manufacturers or methods may not be comparable. Pending [facility] efficiency clerk and method: [employer] DXI, CHEMILUMINESCENT IMMUNOASSAY. PERFORMED BY: [facility] [address] [place] [address] PATHOLOGIST EQUINE BREEDER CHARLY JOSHI M.D. Performed By: #### P SAS, CMP, CBC, TSH3 wRFLX, LIPID #### [facility] [address] Platelet mean volume Auto (B ld) [Entitic vol]Ordered By: Bakari White on 04-13-2024 Platelet mean volume (Bld) [Entitic vol] Platelet mean volume [Entitic volume] in Blood by Automated count 6.6-10.1 [facility] Platelets Auto (Bld) [#/Vol] Ordered By: Bakari White on 04-13-2024 Platelets (Bld) [#/Vol] Platelets [#/volume] in Blood by Automated count 150-450 [facility] Potassium [Moles/volume] in Serum or PlasmaOrdered By: Bakari White on 04-13-2024 Potassium [Moles/Vol] Potassium [Moles/v olume] in Serum or Plasma 3.5-5.1 [facility] Prostate specific Ag [Mass/v olume] in Serum or PlasmaOrdered By: Bakari White on 04-13-2024 Prostate specific Ag [Mass/Vol] Prostate specific Ag [Mass/volume] in Serum or Plasma 0.000-4.000 [facility] Comment on above: Serial tumor marker results determined by assays using different manufacturers or methods may not be comparable.Pending [facility] efficiency clerk and method:[employer] DXI, CHEMILUMINESCENT IMMUNOASSAY. Protein [Mass/volume] in Ser um or PlasmaOrdered By: Bakari White on 04-13-2024 Protein [Mass/Vol] Protein [Mass/volume ] in Serum or Plasma 6.4-8.9 [facility] RBC Auto (Bld) [#/Vol]Ordere d By: Bakari White on 04-13-2024 RBC (Bld) [#/Vol] Erythrocytes [#/volu me] in Blood by Automated count 3.90-5.60 [facility] Serum or plasma albumin/glob ulin mass ratioOrdered By: Bakari White on 04-13-2024 Albumin/Globulin [Mass ratio] Serum or plasma albumin/globulin mass ratio [facility] Serum or plasma anion gap de terminationOrdered By: Bakari White on 04-13-2024 Anion gap [Moles/Vol] Serum or plasma an ion gap determination 6.0-15.0 [facility] Serum or plasma total choles terol/high density lipoprotein (HDL) cholesterol mass ratOrdered By: Bakari White on 04-13-2024 Cholesterol.total/Chol esterol in HDL [Mass ratio] Serum or plasma total cholesterol/high density lipoprotein (HDL) cholesterol mass rat <5.0 [facility] Sodium [Moles/volume] in Ser um or PlasmaOrdered By: Bakari White on 04-13-2024 Sodium [Moles/Vol] Sodium [Moles/volume ] in Serum or Plasma 136-145 [facility] Thyroid Stim Hormone w/Rflxo n 04-13-2024 Thyroid Stim Hormone w/Rflx 2.29 u[iU]/mL Normal 0.45-5.33 [facility] Comment on above: Order Comment: Reaso n for Exam Morbid (severe) obesity due to excess calories;Body mass ind Result Comment: PERF ORMED BY: [place] [address] PATHOLOGIST EQUINE BREEDER CHARLY JOSHI M.D. Performed By: #### P SAS, CMP, CBC, TSH3 wRFLX, LIPID #### [address] Thyrotropin [Units/volume] i n Serum or PlasmaOrdered By: Bakari White on 04-13-2024 TSH Qn Thyrotropin [Units/volume] in Serum or Plasma 0.45-5.33 [facility] Triglyceride [Mass/volume] i n Serum or PlasmaOrdered By: Bakari White on 04-13-2024 Triglyceride [Mass/Vol] Triglyceride [Mass/volume] in Serum or Plasma 0-149 [facility] Comment on above: TRIG ATP III CLASSIF ICATIONTRIG less than 150 mg/dL NormalTRIG 150-199 mg/dL Borderline highTRIG 200-500 mg/dL High TRIG greater than 500 mg/dL Very highStandard traceable to the Center for Disease Conrtrol and Prevention (CDC) test method. Urea nitrogen [Mass/volume] in Serum or PlasmaOrdered By: Bakari White on 04-13-2024 Urea nitrogen [Mass/Vol] Urea nitrogen [Mass/volume] in Serum or Plasma 12-23 [facility] WBC Auto (Bld) [#/Vol]Ordere d By: Bakari White on 04-13-2024 WBC (Bld) [#/Vol] Leukocytes [#/volume ] in Blood by Automated count 4.1-10.5 [facility] CBC AND AUTO DIFFon 05-29-20 ABSOLUTE BASOPHIL 0.0 X10E9/L Normal 0.0-0.2 [facility] Comment on above: Performed By: #### C ANAMIKA [facility], 24756-2, 1986-09 #### [facility] ([id number]) [address] [place] [address] 75099 ABSOLUTE NEUTROPHIL 2.6 X10E9/L Normal 1.5-6.6 [facility] Comment on above: Performed By: #### Leila WILLSON [facility], , 1986-09 #### [facility] ([id number]) [address] [place] [address] 06566 Basophils/100 WBC (Bld) 0.8 % Normal [facility] Comment on above: Performed By: #### Leila WILLSON [facility], 1986-09 #### [facility] ([id number]) [address] [place] [address] 21355 Eosinophils (Bld) [#/Vol] 0.1 10*3/uL Normal 0.0-0.4 [facility] Comment on above: Performed By: #### Leila WILLSON [facility], 1986-09 #### [facility] ([id number]) [address] [place] [address] 22272 Eosinophils/100 WBC (Bld) 2.8 % Normal [facility] Comment on above: Performed By: #### Leila WILLSON [facility], , 1986-09 #### [facility] ([id number]) [address] [place] [address] 36440 Erythrocyte distribution width (RBC) [Ratio] 15.4 % High 11.5-15.0 [facility] Comment on above: Performed By: #### Leila WILLSON CMP, 97407-8, 1987-09 #### [facility] ([id number]) [address] [place] [address] 80769 Hematocrit (Bld) [Volume fraction] 33.8 % Low 39-49 [facility] Comment on above: Performed By: #### Leila WILLSON [facility], , 1986-09 #### [facility] ([id number]) [address] [place] [address] 10546 Hemoglobin (Bld) [Mass/Vol] 11.0 g/dL Low 13.0-17.0 [facility] Comment on above: Performed By: #### Leila WILLSON [facility], , 1986-09 #### [facility] ([id number]) [address] [place] [address] 41333 Lymphocytes (Bld) [#/Vol] 0.7 10*3/uL Low 1.0-3.5 [facility] Comment on above: Performed By: #### Leila WILLSON CMP, , 1986-09 #### [facility] ([id number]) [address] [place] [address] 86300 Lymphocytes/100 WBC (Bld) 16.7 % Normal [facility] Comment on above: Performed By: #### Leila WILLSON CMP, , 1986-09 #### [facility] ([id number]) [address] [place] [address] 24019 MCH (RBC) [Entitic mass] 26.6 pg Low 27-34 [facility] Comment on above: Performed By: #### Leila WILLSON CMP, , 1986-09 #### [facility] ([id number]) [address] [place] [address] 33794 MCHC (RBC) [Mass/Vol] 32.4 g/dL Normal 32-36 [facility] Comment on above: Performed By: #### Leila WILLSON CMP, 67985-0, 1987-09 #### [facility] ([id number]) [address] [place] [address] 93860 MCV (RBC) [Entitic vol] 82 fL Normal 80-100 [facility] Comment on above: Performed By: #### Leila WILLSON CMP, , 1986-09 #### [facility] ([id number]) [address] [place] [address] 66868 Monocytes (Bld) [#/Vol] 0.6 10*3/uL Normal 0-0.9 [facility] Comment on above: Performed By: #### Leila WILLSON CMP, , 1986-09 #### [facility] ([id number]) [address] [place] [address] 38993 Monocytes/100 WBC (Bld) 14.4 % Normal [facility] Comment on above: Performed By: #### Leila WILLSON, CMP, , 1986-09 #### [facility] ([id number]) [address] [place] [address] 49302 Neutrophils/100 WBC (Bld) 65.3 % Normal [facility] Comment on above: Performed By: #### Leila WILLSON, CMP, , 1986-09 #### [facility] ([id number]) [address] [place] [address] 38035 Platelet mean volume (Bld) [Entitic vol] 7.6 fL Normal 7-12 [facility] Comment on above: Performed By: #### Leila WILLSON CMP, 95299-9, 1987-09 #### [facility] ([id number]) [address] [place] [address] 84653 Platelets (Bld) [#/Vol] 205 10*3/uL Normal 150-450 [facility] Comment on above: Performed By: #### Leila WILLSON, CMP, , 1986-09 #### [facility] ([id number]) [address] [place] [address] 82583 RBC COUNT 4.12 X10E12/L Normal 4.10-5.70 [facility] Comment on above: Performed By: #### Leila WILLSON, CMP, , 1986-09 #### [facility] ([id number]) [address] [place] [address] 23958 WBC (Bld) [#/Vol] 4.0 10*3/uL Normal 4.0-11.0 [facility] Comment on above: Performed By: #### Leila BCA, CMP, , 1987-09 #### [facility] ([id number]) [address] [place] [address] 05289 COMPREHENSIVE METABOLIC PANE [facility] 05-29-2023 Albumin [Mass/Vol] 4.1 g/dL Normal 3.2-5.3 [facility] Comment on above: Performed By: #### Leila WILLSON, CMP, , 1987-09 #### [facility] ([id number]) [address] [place] [address] 55899 ALP [Catalytic activity/Vol] 56 U/L Normal 39-130 [facility] Comment on above: Performed By: #### C BCA, CMP, , 1987-09 #### [facility] ([id number]) [address] [place] [address] 27349 ALT [Catalytic activity/Vol] 22 U/L Normal 0-40 [facility] Comment on above: Performed By: #### Leila BCA, CMP, , 1987-09 #### [facility] ([id number]) [address] [place] [address] 54896 Anion gap [Moles/Vol] 5 mmol/L Normal 5-15 [facility] Comment on above: Performed By: #### C BCA, CMP, , 1987-09 #### [facility] ([id number]) [address] [place] [address] 31252 AST [Catalytic activity/Vol] 25 U/L Normal 0-41 [facility] Comment on above: Performed By: #### C ANAMIKA, CMP, , 1987-09 #### [facility] ([id number]) [address] [place] [address] 22365 Bilirubin [Mass/Vol] 0.7 mg/dL Normal 0.3-1.2 [facility] Comment on above: Performed By: #### C ANAMIKA, CMP, , 1987-09 #### [facility] ([id number]) [address] [place] [address] 64924 Calcium [Mass/Vol] 8.7 mg/dL Normal 8.5-10.5 [facility] Comment on above: Performed By: #### C BCA, CMP, , 1987-09 #### [facility] ([id number]) [address] [place] [address] 09879 Chloride [Moles/Vol] 105 mmol/L Normal 98-109 [facility] Comment on above: Performed By: #### C BCA, CMP, , 1987-09 #### [facility] ([id number]) [address] [place] [address] 70765 CO2 [Moles/Vol] 29 mmol/L Normal 22-32 [facility] Comment on above: Performed By: #### C BCA, CMP, , 1987-09 #### [facility] ([id number]) [address] [place] [address] [place] [address] Creatinine [Mass/Vol] 0.93 mg/dL Normal 0.70-1.20 [facility] Comment on above: Result Comment: METH OD TRACEABLE TO IDMS STANDARD Performed By: #### C ALL WILLSON, 60504-7, 1987-09 #### [facility] ([id number]) [address] [place] [address] 75190 eGFR (CKD-EPI) NON-RACE DEPENDENT >90 Normal >59 [facility] Comment on above: Result Comment: Reported eGFR is based on the CKD-EPI 2020 equation that does not use a race coefficient. Performed By: #### C ALL WILLSON, , 1987-09 #### [facility] ([id number]) [address] [place] [address] 05390 Glucose [Mass/Vol] 108 mg/dL High 65-99 [facility] Comment on above: Performed By: #### C ALL WILLSON, , 1986-09 #### [facility] ([id number]) [address] [place] [address] 93121 Potassium [Moles/Vol] 4.3 mmol/L Normal 3.5-5.0 [facility] Comment on above: Performed By: #### C ALL WILLSON, 1986-09 #### [facility] ([id number]) [address] [place] [address] 20878 Protein [Mass/Vol] 8.3 g/dL High 6.0-8.0 [facility] Comment on above: Performed By: #### C ALL WILLSON, , 1987-09 #### [facility] ([id number]) [address] [place] [address] 44987 Sodium [Moles/Vol] 139 mmol/L Normal 134-146 [facility] Comment on above: Performed By: #### C ALL WILLSON, 1986-09 #### [facility] ([id number]) [address] [place] [address] Urea nitrogen [Mass/Vol] 13 mg/dL Normal 5-27 [facility] Comment on above: Performed By: #### C BCA, CMP, 08674-9, 1987-09 #### [facility] ([id number]) [address] [place] [address] CRP [Mass/Vol]on 05-29-2023 C REACTIVE PROTEIN 5.8 mg/dL High 0.000-0.744 [facility] Comment on above: Performed By: #### C BCA, CMP, 31090-4, 1987-09 #### [facility] ([id number]) [address] [place] [address] CT CTA CHESTon 05-29-2023 CT CTA CHEST [...] St DO on 05/29/2023 2:26 PM Normal [facility] Fibrin D-dimer DDU (PPP) [Ma ss/Vol]on 05-29-2023 D DIMER 945 ng/mL DDU High <255 [facility] Comment on above: Result Comment: Results >=255ng/mL [...] D-Dimer level. Performed By: #### C ANAMIKA, [facility], 61448-2, 1987-09 #### [facility] ([id number]) [address] [place] [address], [place] [address] SARS/FLU A+B/RSV by NAAT/Mol ecularon 05-29-2023 SARS/FLU [...] operators who are performing tests using either [employer] or [employer] systems and is limited to laboratories that [...] repeat. Fact Sheet for Healthcare Providers: https://www.fda.gov/medi a/845127/download Fact Sheet for Patients: https://www.fda.gov/medi a/133880/download Normal [facility] Comment on above: Performed By: #### C OVFLR #### [facility] ([id number]) [address] [place] [address] 61895 XR KNEE RT 3 VWSon 3 XR [...] Samson MD on 05/29/2023 12:57 PM Normal [facility] Hgb/Hcton 03-17-2023 Hematocrit (Bld) [Volume fraction] 31.6 % Low 40.7-50.3 [facility] Comment on above: Performed By: #### H H #### [facility] [address] [place], [place] [address] Medical Scheduler: Elizabeth Sampson MD Hemoglobin (Bld) [Mass/Vol] 10.1 g/dL Low 13.0-17.0 [facility] Comment on above: Performed By: #### H H #### [facility] [address] [place] [address] Medical Scheduler: Elizabeth Sampson MD OPERATIVE REPORTon 3 OPERATIVE REPORT [address] [place] [address] OPERATIVE REPORT PATIENT NAME: JÚNIOR ROWLAND : 1960 [facility] REC NO: [id number] ROOM: [facility] ACCOUNT NO: [id number] ADMIT DATE: 03/16/2023 PROVIDER: Ajay Galvan DATE [...] to go with a 32-mm patellar dome. Adrian holes were placed. The knee was then [...] layer was then closed with #1 Vicryl zadaax-vr-phbyd sutures over two Hemovac drains. Vancomycin powder [...] a layered closure. AJAY GALVAN [id number] Doc#: [id number] CC: Normal [facility] MRSA, DNA, Nasalon 3 MRSA, DNA, Nasal Negative Normal NEG [facility] Comment on above: Result Comment: NEGA VE: MRSA DNA not detected by nucleic acid amplification. Results should be used as an adjunct to nosocomial control efforts to identify patients needing enhanced precautions. The test is not intended to identify patients with staphylococcal infections. Results should not be used to guide or monitor treatment for MRSA infections. Performed By: #### M RSANO #### [facility] [address] [place], [place] [id number] Medical Scheduler: Phan Dos Santos MD [facility] [address] [place], [place] [id number] Medical Scheduler: Elizabeth Sampson MD Basic Metabolic Profon 02-18 Anion gap [Moles/Vol] 9 mmol/L Normal -17 [facility] Comment on above: Performed By: #### B PAULETTE, CDP #### [facility] [address] [place], [place] [id number] Medical Scheduler: Elizabeth Sampson MD BUN/CRE Ratio 26 High 9-20 [facility] Comment on above: Performed By: #### B PAULETTE, CDP #### [facility] [address] [place], [place] 187[address]83 Medical Scheduler: Elizabeth Sampson MD Calcium [Mass/Vol] 9.5 mg/dL Normal 8.6-10.4 [facility] Comment on above: Performed By: #### B PAULETTE, CDP #### [facility] [address] [place], [place] [address]83 Medical Scheduler: Elizabeth Sampson MD Chloride [Moles/Vol] 102 mmol/L Normal 98-107 [facility] Comment on above: Performed By: #### B PAULETTE, CDP #### [facility] [address] [place], [place] [address]83 Medical Scheduler: Elizabeth Sampson MD CO2 [Moles/Vol] 27 mmol/L Normal - [facility] Comment on above: Performed By: #### B PAULETTE, CDP #### [facility] [address] [place] [address] Medical Scheduler: Elizabeth Sampson MD Creatinine [Mass/Vol] 0.8 mg/dL Normal 0.7-1.2 [facility] Comment on above: Performed By: #### B PAULETTE, CDP #### [facility] [address] [place] [address] Medical Scheduler: Elizabeth Sampson MD GFR/1.73 sq M.predicted among non-blacks MDRD (S/P/Bld) [Vol rate/Area] mL/min/{1.73_m2} Normal >60 [facility] Comment on above: Result Comment: These [...] Performed By: #### B PAULETTE, CDP #### [facility] [address] [place] [address] Medical Scheduler: Elizabeth Sampson MD Glucose [Mass/Vol] 85 mg/dL Normal 70-99 [facility] Comment on above: Performed By: #### B PAULETTE, CDP #### [facility] [address] [place] [address] Medical Scheduler: Elizabeth Sampson MD Potassium [Moles/Vol] 4.2 mmol/L Normal 3.7-5.3 [facility] Comment on above: Performed By: #### B PAULETTE, CDP #### [facility] [address] [place] [address] Medical Scheduler: Elizabeth Sampson MD Sodium [Moles/Vol] 138 mmol/L Normal 135-144 [facility] Comment on above: Performed By: #### B PAULETTE, CDP #### [facility] [address] [place] [address] [address] [place], [facility] Medical Scheduler: Elizabeth Sampson MD Urea nitrogen [Mass/Vol] 21 mg/dL Normal 8-23 [facility] Comment on above: Performed By: #### B PAULETTE, CDP #### [facility] [address] [place], [facility] Medical Scheduler: Elizabeth Sampson MD CBC with Diffon 02-18-2023 Abs. Basophil 0.04 k/uL Normal 0.00-0.20 [facility] Comment on above: Performed By: #### B PAULETTE, CDP #### [address] [place], [place] [address] Medical Scheduler: Elizabeth Sampson MD Abs.Imm.Granulocyte <0.03 Normal 0.00-0.30 [facility] Comment on above: Performed By: #### B PAULETTE, CDP #### [address] [place], [place] [address] Medical Scheduler: Elizabeth Sampson MD Abs.Neutrophil (Seg) 2.98 k/uL Normal 1.50-8.10 [facility] Comment on above: Performed By: #### B PAULETTE, CDP #### [address] [place], [facility] Medical Scheduler: Elizabeth Sampson MD Basophils/100 WBC (Bld) 1 % Normal 0-2 [facility] Comment on above: Performed By: #### B PAULETTE, CDP #### [facility] [address] [place] [address] [address] [place], [facility] Medical Scheduler: Elizabeth Sampson MD Eosinophils (Bld) [#/Vol] 0.16 10*3/uL Normal 0.00-0.44 [facility] Comment on above: Performed By: #### Durga CALDWELL, CDP #### [facility] [address] [place], [facility] Medical Scheduler: Elizabeth Sampson MD Eosinophils/100 WBC (Bld) 3 % Normal 1-4 [facility] Comment on above: Performed By: #### B PAULETTE, CDP #### [address] [place], [place] [id number] Medical Scheduler: Elizabeth Sampson MD Erythrocyte distribution width (RBC) [Ratio] 13.5 % Normal 11.8-14.4 [facility] Comment on above: Performed By: #### B PAULETTE, CDP #### [address] [place], [place] [address]83 Medical Scheduler: Elizabeth Sampson MD Hematocrit (Bld) [Volume fraction] 39.9 % Low 40.7-50.3 [facility] Comment on above: Performed By: #### B PAULETTE, CDP #### [address] [place] [address] Medical Scheduler: Elizabeth Sampson MD Hemoglobin (Bld) [Mass/Vol] 12.7 g/dL Low 13.0-17.0 [facility] Comment on above: Performed By: #### Durga CALDWELL, CDP #### [address] [place] [address] Medical Scheduler: Elizabeth Sampson MD Immature granulocytes/100 WBC (Bld) 0 % Normal 0 [facility] Comment on above: Performed By: #### B PAULETTE, CDP #### [facility] [address] [place] [address] [address], [place] [id number] Medical Scheduler: Elizabeth Sampson MD Lymphocytes (Bld) [#/Vol] 1.40 10*3/uL Normal 1.10-3.70 [facility] Comment on above: Performed By: #### B PAULETTE, CDP #### [address] [place] [address] Medical Scheduler: Elizabeth Sampson MD Lymphocytes/100 WBC (Bld) 28 % Normal 24-43 [facility] Comment on above: Performed By: #### B MP, CDP #### [facility] [address] [place], [place] 14[address]83 Medical Scheduler: Elizabeth Sampson MD MCH (RBC) [Entitic mass] 28.0 pg Normal 25.2-33.5 [facility] Comment on above: Performed By: #### B MP, CDP #### [address] [place], [place] 233[address]83 Medical Scheduler: Elizabeth Sampson MD MCHC (RBC) [Mass/Vol] 31.8 g/dL Normal 28.4-34.8 [facility] Comment on above: Performed By: #### B MP, CDP #### [address] [place], [place] [address]83 Medical Scheduler: Elizabeth Sampson MD MCV (RBC) [Entitic vol] 87.9 fL Normal 82.6-102.9 [facility] Comment on above: Performed By: #### B MP, CDP #### [address] [place], [place] [address]83 Medical Scheduler: Elizabeth Sampson MD Monocytes (Bld) [#/Vol] 0.43 10*3/uL Normal 0.10-1.20 [facility] Comment on above: Performed By: #### B MP, CDP #### [address] [place], [place] 9752183 Medical Scheduler: Elizabeth Sampson MD Monocytes/100 WBC (Bld) 9 % Normal 3-12 [facility] Comment on above: Performed By: #### B MP, CDP #### [address] [place], [place] 327[address]83 Medical Scheduler: Elizabeth Sampson MD Neutrophil (Seg) 59 % Normal 36-65 [facility] Comment on above: Performed By: #### B MP, CDP #### [facility] [address] [place], [place] 5863983 Medical Scheduler: Elizabeth Sampson MD NRBC Automated 0.0 per 100 WBC Normal 0.0 [facility] Comment on above: Performed By: #### B MP, CDP #### [address] [place], [place] 1466283 Medical Scheduler: Elizabeth Sampson MD Platelet mean volume (Bld) [Entitic vol] 10.2 fL Normal 8.1-13.5 [facility] Comment on above: Performed By: #### B MP, CDP #### [address] [place], [place] 3021683 Medical Scheduler: Elizabeth Sampson MD Platelets (Bld) [#/Vol] 215 10*3/uL Normal 138-453 [facility] Comment on above: Performed By: #### B PAULETTE, CDP #### [address] [place], [place] [id number] Medical Scheduler: Elizabeth Sampson MD RBC (Bld) [#/Vol] 4.54 10*6/uL Normal 4.21-5.77 [facility] Comment on above: Performed By: #### B MP, CDP #### [address] [place], [place] [id number] Medical Scheduler: Elizabeth Sampson MD WBC (Bld) [#/Vol] 5.0 10*3/uL Normal 3.5-11.3 [facility] Comment on above: Performed By: #### B MP, CDP #### [address] [place], [place] [address] Medical Scheduler: Elizabeth Sampson MD MRSA, DNA, Nasalon 3 Specimen Description .NASAL SWAB Normal [facility] Comment on above: Performed By: #### M RSANO #### [facility] [address] [place], [place] [id number] Medical Scheduler: Phan Dos Santos MD [address] [place] [address] Medical Scheduler: Elizabeth Sampson MD Type + Screenon 02-18-2023 Type + Screen Sample Expiration 03/19/2023,2359 Arm Band Number [id number] ABO/Rh(D) O POSITIVE Antibody Screen NEGATIVE Normal [facility] Comment on above: Performed By: #### T YS #### [address] [place] [address] Medical Scheduler: Elizabeth Sampson MD Hemoglobin and hematocrit, b loodon 06-13-2022 Hematocrit (Bld) [Volume fraction] 33.7 % Low 40.7 - 50.3 % [facility] Hemoglobin (Bld) [Mass/Vol] 11.0 g/dL Low 13.0 - 17.0 g/dL [facility] Interpretation and review of laboratory results Abnormal [facility] Hgb/Hcton 06-13-2022 Hematocrit (Bld) [Volume fraction] 33.7 % Low 40.7-50.3 [facility] Comment on above: Performed By: #### H H #### [address] [place] [address] Medical Scheduler: Elizabeth Sampson MD Hemoglobin (Bld) [Mass/Vol] 11.0 g/dL Low 13.0-17.0 [facility] Comment on above: Performed By: #### H H #### [address] [place] [address] Medical Scheduler: Elizabeth Sampson MD OPERATIVE REPORTon 3 OPERATIVE REPORT [address] [place] [address] OPERATIVE REPORT PATIENT NAME: JÚNIOR ROWLAND : 1960 MED REC NO: [id number] ROOM: [facility] ACCOUNT NO: [id number] ADMIT DATE: 06/12/2022 PROVIDER: Ajay Galvan DATE [...] layer was then closed with #1 Vicryl [id number] sutures over two Hemovac drains. Remainder of [...] layered closure time. AJAY GALVAN [id number] Doc#: [id number] CC: [facility] EKG 12 LeadOrdered By: Niranjan Velez on 05-13-2022 Atrial Rate 70 BPM [employer] Phone: P [place] 8 degrees [employer] Phone: P-R Interval 218 ms [employer] Phone: Q-T Interval 394 ms [employer] Phone: QRS Duration 86 ms [employer] Phone: QTc Calculation (Bazett) 425 ms [employer] Phone: R [place] 6 degrees [employer] Phone: T [place] 36 degrees [employer] Phone: Ventricular Rate 70 BPM [employer] Phone: [employer] Phone: EKG 12 Leadon 05-13-2022 Sinus rhythm with 1s t degree A-V block Otherwise normal ECG No previous ECGs available Confirmed by ELDA VELZE ([id number]) on 05/13/2022 12:38:30 AM [facility] Elda Velez MD - 05/13/2022 Sinus rhythm with 1st degree A-V block Otherwise normal ECG No previous ECGs available Confirmed by ELDA VELEZ ([id number]) on 05/13/2022 12:38:30 AM [facility] Work Phone: MRSA DNA Probe, Nasalon 05-01 MRSA, DNA, Nasal Negative NEGATIVE [facility] Comment on above: NEGATIVE: MRSA DNA n ot detected by nucleic acid amplification. Results should be used as an adjunct to nosocomial control efforts to identify patients needing enhanced precautions. The test is not intended to identify patients with staphylococcal infections. Results should not be used to guide or monitor treatment for MRSA infections. Specimen Description .NASAL SWAB [facility] MRSA, DNA, Nasalon MRSA, DNA, Nasal Negative Normal [facility] Comment on above: Result Comment: [facility]: MRSA DNA not detected by nucleic acid amplification. Results should be used as an adjunct to nosocomial control efforts to identify patients needing enhanced precautions. The test is not intended to identify patients with staphylococcal infections. Results should not be used to guide or monitor treatment for MRSA infections. Performed By: #### M RSANO #### [facility] [address] [place] [address] Medical Scheduler: Phan Dos Santos MD [facility] [address] [place] [address] Medical Scheduler: Elizabeth Sampson MD Basic Metabolic Panelon 05-01 Anion gap [Moles/Vol] 9 mmol/L 9 - 17 mmol/L [facility] Calcium [Mass/Vol] 9.6 mg/dL 8.6 - 10. 4 mg/dL [facility] Chloride [Moles/Vol] 101 mmol/L 98 - 10 7 mmol/L [facility] CO2 [Moles/Vol] 26 mmol/L 20 - 31 mmol/L [facility] Creatinine [Mass/Vol] 0.86 mg/dL 0.70 - 1.20 mg/dL [facility] GFR/1.73 sq M.predicted MDRD (S/P/Bld) [Vol rate/Area] - PINF [facility] Comment on above: Effective Mar 03, [...] [Mass/Vol] 90 mg/dL 70 - 99 mg/dL [facility] Interpretation and review of laboratory results Abnormal [facility] Potassium [Moles/Vol] 3.9 mmol/L 3.7 - 5.3 mmol/L [facility] Sodium [Moles/Vol] 136 mmol/L 135 - 144 mmol/L [facility] Urea nitrogen (BldV) [Mass/Vol] 21 mg/dL 8 - 23 mg/dL [facility] Urea nitrogen/Creatinine (Bld) [Mass ratio] 24 High 9 - 20 [facility] Basic Metabolic Profon 05-12 Anion gap [Moles/Vol] 9 mmol/L Normal 9-17 [facility] Comment on above: Performed By: #### C DP, BMP #### [facility] [address] [place] [address] Medical Scheduler: Elizabeth Sampson MD BUN/CRE Ratio 24 High 9-20 [facility] Comment on above: Performed By: #### C DP, BMP #### [facility] [address] [place] [address] Medical Scheduler: Elizabeth Sampson MD Calcium [Mass/Vol] 9.6 mg/dL Normal 8.6-10.4 [facility] Comment on above: Performed By: #### C DP, BMP #### [facility] [address] [place], [place] [id number] Medical Scheduler: Elizabeth Sampson MD Chloride [Moles/Vol] 101 mmol/L Normal 98-107 [facility] Comment on above: Performed By: #### C DP, BMP #### [facility] [address] [place] [id number] Medical Scheduler: Elizabeth Sampson MD CO2 [Moles/Vol] 26 mmol/L Normal 20-31 [facility] Comment on above: Performed By: #### C DP, BMP #### [facility] [address] [place] [address] Medical Scheduler: Elizabeth Sampson MD Creatinine [Mass/Vol] 0.86 mg/dL Normal 0.70-1.20 [facility] Comment on above: Performed By: #### C DP, BMP #### [facility] [address] [place] [address] Medical Scheduler: Elizabeth Sampson MD GFR/1.73 sq M.predicted among non-blacks MDRD (S/P/Bld) [Vol rate/Area] mL/min/{1.73_m2} Normal >60 [facility] Comment on above: Result Comment: Effective [...] Performed By: #### C DP, BMP #### [facility] [address] [place] [address] Medical Scheduler: Elizabeth Sampson MD Glucose [Mass/Vol] 90 mg/dL Normal 70-99 [facility] Comment on above: Performed By: #### C DP, BMP #### [facility] [address] [place] [address] Medical Scheduler: Elizabeth aSmpson MD Potassium [Moles/Vol] 3.9 mmol/L Normal 3.7-5.3 [facility] Comment on above: Performed By: #### C DP, BMP #### [facility] [address] [place] [address] Medical Scheduler: Elizabeth Sampson MD Sodium [Moles/Vol] 136 mmol/L Normal 135-144 [facility] Comment on above: Performed By: #### C DP, BMP #### [facility] [address] [place] [address] Medical Scheduler: Elizabeth Sampson MD Urea nitrogen [Mass/Vol] 21 mg/dL Normal 8-23 [facility] Comment on above: Performed By: #### C DP, BMP #### [facility] [address] [place] [address] Medical Scheduler: Elizabeth Sampson MD CBC with Auto Differentialon 05-12-2022 Absolute Eos # 0.19 [facility] Absolute Immature Granulocyte 0.05 [facility] Absolute Lymph # 1.73 [facility] Absolute [place] # 0.48 [facility] Basophils (Bld) [#/Vol] 0.04 10*3/uL [facility] Basophils/100 WBC (Bld) 0 % 0 - 2 % [facility] Eosinophils/100 WBC (Bld) 2 % 1 - 4 % [facility] Hematocrit (Bld) [Volume fraction] 42.5 % 40.7 - 50.3 % [facility] Hemoglobin (Bld) [Mass/Vol] 13.4 g/dL 13.0 - 17.0 g/dL [facility] Immature granulocytes/100 WBC (Bld) 1 % High 0 [facility] Interpretation and review of laboratory results Abnormal [facility] Lymphocytes/100 WBC (Bld) 18 % Low 24 - 43 % [facility] MCH (RBC) [Entitic mass] 28.6 pg 25.2 - 33.5 pg [facility] MCHC (RBC) [Mass/Vol] 31.5 g/dL 28.4 - 34.8 g/dL [facility] MCV (RBC) [Entitic vol] 90.8 fL 82.6 - 102.9 fL [facility] Monocytes/100 WBC (Bld) 5 % 3 - 12 % [facility] NRBC Automated 0.0 0.0 per 100 WBC [facility] Platelet distribution width (Bld) [Ratio] 13.4 % 11.8 - 14.4 % [facility] Platelet mean volume (Bld) [Entitic vol] 9.7 fL 8.1 - 13.5 fL [facility] Platelets (Bld) [#/Vol] 240 10*3/uL [facility] RBC (Bld) [#/Vol] 4.68 10*6/uL 4.21 - 5.7 7 m/uL [facility] Segmented neutrophils/100 WBC (Bld) 74 % High 36 - 65 % [facility] Segs Absolute 6.94 [facility] WBC (Bld) [#/Vol] 9.4 10*3/uL [facility] CBC with Diffon 05-12-2022 Abs. Basophil 0.04 k/uL Normal 0.00-0.20 [facility] Comment on above: Performed By: #### C DP, BMP #### [facility] [address] [place] [address] Medical Scheduler: Elizabeth Sampson MD Abs.Imm.Granulocyte 0.05 k/uL Normal 0.00-0.30 [facility] Comment on above: Performed By: #### C DP, BMP #### [facility] [address] [place] [address] Medical Scheduler: Elizabeth Sampson MD Abs.Neutrophil (Seg) 6.94 k/uL Normal 1.50-8.10 [facility] Comment on above: Performed By: #### C DP, BMP #### [facility] [address] [place], [facility] Medical Scheduler: Elizabeth Sampson MD Basophils/100 WBC (Bld) 0 % Normal 0-2 [facility] Comment on above: Performed By: #### C DP, BMP #### [address] [place], [place] [address] Medical Scheduler: Elizabeth Sampson MD Eosinophils (Bld) [#/Vol] 0.19 10*3/uL Normal 0.00-0.44 [facility] Comment on above: Performed By: #### C DP, BMP #### [address] [place] [place] [address] Medical Scheduler: Elizabeth Sampson MD Eosinophils/100 WBC (Bld) 2 % Normal 1-4 [facility] Comment on above: Performed By: #### C DP, BMP #### [address] [place], [facility] Medical Scheduler: Elizabeth Sampson MD Erythrocyte distribution width (RBC) [Ratio] 13.4 % Normal 11.8-14.4 [facility] Comment on above: Performed By: #### C DP, BMP #### [address] [place], [facility] Medical Scheduler: Elizabeth Sampson MD Hematocrit (Bld) [Volume fraction] 42.5 % Normal 40.7-50.3 [facility] Comment on above: Performed By: #### C DP, BMP #### [address] [place], [facility] Medical Scheduler: Elizabeth Sampson MD Hemoglobin (Bld) [Mass/Vol] 13.4 g/dL Normal 13.0-17.0 [facility] Comment on above: Performed By: #### C DP, BMP #### [address] [place], [place] [id number] Medical Scheduler: Elizabeth Sampson MD Immature granulocytes/100 WBC (Bld) 1 % High 0 [facility] Comment on above: Performed By: #### C DP, BMP #### [facility] [address] [place], [place] [address] Medical Scheduler: Elizabeth Sampson MD Lymphocytes (Bld) [#/Vol] 1.73 10*3/uL Normal 1.10-3.70 [facility] Comment on above: Performed By: #### C DP, BMP #### [facility] [address] [place] [address] Medical Scheduler: Elizabeth Sampson MD Lymphocytes/100 WBC (Bld) 18 % Low 24-43 [facility] Comment on above: Performed By: #### C DP, BMP #### [address] [place], [place] [address] Medical Scheduler: Elizabeth Sampson MD MCH (RBC) [Entitic mass] 28.6 pg Normal 25.2-33.5 [facility] Comment on above: Performed By: #### C DP, BMP #### [address] [place], [place] [address] Medical Scheduler: Elizabeth Sampson MD MCHC (RBC) [Mass/Vol] 31.5 g/dL Normal 28.4-34.8 [facility] Comment on above: Performed By: #### C DP, BMP #### [address] [place], [place] [address] Medical Scheduler: Elizabeth Sampson MD MCV (RBC) [Entitic vol] 90.8 fL Normal 82.6-102.9 [facility] Comment on above: Performed By: #### C DP, BMP #### [address] [place] [address] Medical Scheduler: Elizabeth Sampson MD Monocytes (Bld) [#/Vol] 0.48 10*3/uL Normal 0.10-1.20 [facility] Comment on above: Performed By: #### C DP, BMP #### [facility] [address] [place], [place] [address] Medical Scheduler: Elizabeth Sampson MD Monocytes/100 WBC (Bld) 5 % Normal 3-12 [facility] Comment on above: Performed By: #### C DP, BMP #### [facility] [address] [place], [place] [address] Medical Scheduler: Elizabeth Sampson MD Neutrophil (Seg) 74 % High 36-65 [facility] Comment on above: Performed By: #### C DP, BMP #### [facility] [address] [place], [place] [address] Medical Scheduler: Elizabeth Sampson MD NRBC Automated 0.0 per 100 WBC Normal 0.0 [facility] Comment on above: Performed By: #### C DP, BMP #### [facility] [address] [place], [place] [address] Medical Scheduler: Elizabeth Sampson MD Platelet mean volume (Bld) [Entitic vol] 9.7 fL Normal 8.1-13.5 [facility] Comment on above: Performed By: #### C DP, BMP #### [address] [place], [place] [address] Medical Scheduler: Elizabeth Sampson MD Platelets (Bld) [#/Vol] 240 10*3/uL Normal 138-453 [facility] Comment on above: Performed By: #### C DP, BMP #### [facility] [address] [place], [place] [address] Medical Scheduler: Elizabeth Sampson MD RBC (Bld) [#/Vol] 4.68 10*6/uL Normal 4.21-5.77 [facility] Comment on above: Performed By: #### C DP, BMP #### [facility] [address] [place] [address] Medical Scheduler: Elizabeth Sampson MD WBC (Bld) [#/Vol] 9.4 10*3/uL Normal 3.5-11.3 [facility] Comment on above: Performed By: #### C DP, BMP #### [facility] [address] [place] [address] Medical Scheduler: Elizabeth Sampson MD MRSA, DNA, Nasalon Specimen Description .NASAL SWAB Normal [facility] Comment on above: Performed By: #### M RSANO #### [facility] [address] [place], [place] [address] Medical Scheduler: Phan Dos Santos MD [address] [place] [address] Medical Scheduler: Elizabeth Sampson MD TYPE AND SCREENon 05-12-2022 ABO/Rh Positive [facility] Arm Band Number [id number] [facility] Expiration Date 06/12/2022,2352 [facility] Type + Screenon 05-12-2022 Type + Screen Sample Expiration 06/12/2022,2350 Arm Band Number [id number] ABO/Rh(D) O POSITIVE Antibody Screen NEGATIVE Normal [facility] Comment on above: Performed By: #### T YS #### [facility] [address] [place] [address] Medical Scheduler: Elizabeth Sampson MD Albumin [Mass/volume] in Ser um or PlasmaOrdered By: Fred Diehl on 01-29-2022 Albumin [Mass/Vol] 4.1 g/dL 3.2-5.5 [facility] Basophils Auto (Bld) [#/Vol] Ordered By: PROVIDER TEMP on 01-29-2022 Basophils (Bld) [#/Vol] 0.1 10*3/uL 0.0-0.2 [facility] Basophils/100 WBC Auto (Bld) Ordered By: PROVIDER TEMP on 01-29-2022 Basophils/100 WBC (Bld) 1.0 % . [facility] Bilirubin Test strip Ql (U)O rdered By: PROVIDER TEMP on 01-29-2022 Bilirubin Ql (U) Negative Negative [facility] Blood hemoglobin measurement (mass/volume)Ordered By: PROVIDER TEMP on 01-29-2022 Hemoglobin (Bld) [Mass/Vol] 13.3 g/dL 13.0-17.0 [facility] Blood leukocytes automated c ount (number/volume)Ordered By: PROVIDER TEMP on 01-29-2022 WBC (Bld) [#/Vol] 5.2 10*3/uL 4.5-11.0 [facility] Color Auto (U)Ordered By: KEENAN RICHARDS TEMKika on 01-29-2022 Color (U) Yellow Yellow [facility] Creatinine and Glomerular fi ltration rate.predicted panel (S/P/Bld)Ordered By: Fred Diehl on 01-29-2022 Creatinine [Mass/Vol] 0.90 mg/dL 0.64-1.27 [facility] Direct bilirubin measurement Ordered By: Fred Diehl on 01-29-2022 Bilirubin.direct [Mass/Vol] 0.1 mg/dL 0.0-0.4 [facility] Eosinophils Auto (Bld) [#/Vo l]Ordered By: PROVIDER TEMP on 01-29-2022 Eosinophils (Bld) [#/Vol] 0.2 10*3/uL 0.0-0.45 [facility] Eosinophils/100 WBC Auto (Bl d)Ordered By: PROVIDER TEMP on 01-29-2022 Eosinophils/100 WBC (Bld) 3.4 % . [facility] Erythrocyte distribution wid th Auto (RBC) [Ratio]Ordered By: PROVIDER TEMP on 01-29-2022 Erythrocyte distribution width (RBC) [Ratio] 14.1 % 12.0-14.8 [facility] Estimated glomerular filtrat ion rate (GFR) non- AmericanOrdered By: Fred Diehl on 01-29-2022 GFR/1.73 sq M.predicted among non-blacks MDRD (S/P/Bld) [Vol rate/Area] > 60 mL/Min [facility] Globulin Calc (S) [Mass/Vol] Ordered By: Fred Diehl on 01-29-2022 Globulin (S) [Mass/Vol] 3.9 g/dL [facility] Hematocrit Auto (Bld) [Volum e fraction]Ordered By: PROVIDER TEMP on 01-29-2022 Hematocrit (Bld) [Volume fraction] 40.7 % 38.8-50.0 [facility] Ketones Auto test strip (U) [Mass/Vol]Ordered By: PROVIDER TEMP on 01-29-2022 Ketones (U) [Mass/Vol] Negative Negative [facility] - Chemistry and C hemistry - challengeOrdered By: Fred Diehl on 01-29-2022 Lipase [Catalytic activity/Vol] 34.0 U/L 22-51 [facility] - Hematology and Cell countsOrdered By: PROVIDER TEMP on 01-29-2022 Nucleated RBC/100 WBC (Bld) [Ratio] 0.2 % 0-0.5 [facility] Lymphocytes Auto (Bld) [#/Vo l]Ordered By: PROVIDER TEMP on 01-29-2022 Lymphocytes (Bld) [#/Vol] 1.2 10*3/uL 1.00-4.8 [facility] Lymphocytes/100 WBC Auto (Bl d)Ordered By: PROVIDER TEMP on 01-29-2022 Lymphocytes/100 WBC (Bld) 23.8 % . [facility] MCH Auto (RBC) [Entitic mass ]Ordered By: PROVIDER TEMP on 01-29-2022 MCH (RBC) [Entitic mass] 27.9 pg 27.5-35.2 [facility] MCHC Auto (RBC) [Mass/Vol]Or dered By: PROVIDER TEMP on 01-29-2022 MCHC (RBC) [Mass/Vol] 32.7 g/dL 32.5-35.6 [facility] MCV Auto (RBC) [Entitic vol] Ordered By: PROVIDER TEMP on 01-29-2022 MCV (RBC) [Entitic vol] 85.3 fL 83.5-101 [facility] Monocytes Auto (Bld) [#/Vol] Ordered By: PROVIDER TEMP on 01-29-2022 Monocytes (Bld) [#/Vol] 0.4 10*3/uL 0.0-0.8 [facility] Monocytes/100 WBC Auto (Bld) Ordered By: PROVIDER TEMP on 01-29-2022 Monocytes/100 WBC (Bld) 7.0 % . [facility] Neutrophils Auto (Bld) [#/Vo l]Ordered By: PROVIDER TEMP on 01-29-2022 Neutrophils (Bld) [#/Vol] 3.4 10*3/uL 1.8-7.7 [facility] Neutrophils/100 WBC Auto (Bl d)Ordered By: PROVIDER TEMP on 01-29-2022 Neutrophils/100 WBC (Bld) 64.8 % . [facility] Nitrite Test strip Ql (U)Ord ered By: PROVIDER TEMP on 01-29-2022 Nitrite Ql (U) Negative Negative [facility] No Panel InformationOrdered By: Fred Diehl on 01-29-2022 Estimated GFR () > 60 mL/Min [facility] Comment on above: GFR estimated refere nce range: According to KDOQI guidelines, <60 ml/min/1.73m2 is sufficient to diagnose a patient with chronic kidney disease. Pharmacy Creatinine Clearance (Chem 139.66 [facility] Platelet mean volume Auto (B ld) [Entitic vol]Ordered By: PROVIDER TEMP on 01-29-2022 Platelet mean volume (Bld) [Entitic vol] 8.2 fL 6.6-10.1 [facility] Platelets Auto (Bld) [#/Vol] Ordered By: PROVIDER TEMP on 01-29-2022 Platelets (Bld) [#/Vol] 239 10*3/uL 150-450 [facility] Protein Auto test strip (U) [Mass/Vol]Ordered By: PROVIDER TEMP on 01-29-2022 Protein (U) [Mass/Vol] Negative Negative [facility] Protein [Mass/volume] in Ser um or PlasmaOrdered By: Fred Diehl on 01-29-2022 Protein [Mass/Vol] 8.0 g/dL 6.1-7.9 [facility] RBC Auto (Bld) [#/Vol]Ordere d By: PROVIDER TEMP on 01-29-2022 RBC (Bld) [#/Vol] 4.77 10*6/uL 3.90-5.60 [facility] Serum or plasma alanine ramesh otransferase measurement without P-5'-P (enzymatic activiOrdered By: Fred Diehl on 01-29-2022 ALT No additional P-5'-P [Catalytic activity/Vol] 25 U/L 10-60 [facility] Serum or plasma albumin/glob ulin mass ratioOrdered By: Fred Diehl on 01-29-2022 Albumin/Globulin [Mass ratio] 1.1 {ratio} [facility] Serum or plasma alkaline corrie sphatase measurement (enzymatic activity/volume)Ordered By: Fred Diehl on 01-29-2022 ALP [Catalytic activity/Vol] 53 U/L 32-92 [facility] Serum or plasma anion gap de terminationOrdered By: Fred Diehl on 01-29-2022 Anion gap [Moles/Vol] 12.0 mmol/L 6.0-15.0 [facility] Serum or plasma aspartate am inotransferase measurement (enzymatic activity/volume)Ordered By: Fred Diehl on 01-29-2022 AST [Catalytic activity/Vol] 25 U/L 10-42 [facility] Serum or plasma calcium martha urement (mass/volume)Ordered By: Fred Diehl on 01-29-2022 Calcium [Mass/Vol] 9.4 mg/dL 8.2-10.2 [facility] Serum or plasma chloride rodrick surement (moles/volume)Ordered By: Fred Diehl on 01-29-2022 Chloride [Moles/Vol] 101 mmol/L 95-114 [facility] Serum or plasma glucose martha urement (mass/volume)Ordered By: Fred Diehl on 01-29-2022 Glucose [Mass/Vol] 92 mg/dL 70-100 [facility] Comment on above: ADA recommended refe rence range Random Glucose Reference Range is dependent on time and content of last meal. Glucose of more than 200 mg/dL in a nonstressed, ambulatory subject supports the diagnosis of Diabetes Mellitus. Serum or plasma non-glucuron idated bilirubin measurement (mass/volume)Ordered By: Fred Diehl on 01-29-2022 Bilirubin.indirect [Mass/Vol] 0.7 mg/dL [facility] Serum or plasma potassium me asurement (moles/volume)Ordered By: Fred Diehl on 01-29-2022 Potassium [Moles/Vol] 3.8 mmol/L 3.5-5.1 [facility] Serum or plasma sodium measu rement (moles/volume)Ordered By: Fred Diehl on 01-29-2022 Sodium [Moles/Vol] 137 mmol/L 136-146 [facility] Serum or plasma total biliru bin measurement (mass/volume)Ordered By: Fred Diehl on 01-29-2022 Bilirubin [Mass/Vol] 0.8 mg/dL 0.3-1.2 [facility] Serum or plasma total carbon dioxide measurement (moles/volume)Ordered By: Fred Diehl on 01-29-2022 CO2 [Moles/Vol] 27.8 mmol/L 22.0-30.0 [facility] Serum or plasma urea nitroge n measurement (mass/volume)Ordered By: Fred Diehl on 01-29-2022 Urea nitrogen [Mass/Vol] 9 mg/dL 9-23 [facility] Specific gravity Auto test s trip (U) [Rel density]Ordered By: PROVIDER TEM on 01-29-2022 Specific gravity (U) [Rel density] 1.013 1.001-1.030 [facility] Urine clarity by refractomet ry automatedOrdered By: PROVIDER TEMP on 01-29-2022 Clarity Refractometry automated (U) Clear Clear [facility] Urine glucose measurement by automated test strip (mass/volume)Ordered By: PROVIDER TEMP on 01-29-2022 Glucose Auto test strip (U) [Mass/Vol] Normal mg/dL Normal [facility] Urine hemoglobin detection b y automated test stripOrdered By: PROVIDER TEMP on 01-29-2022 Hemoglobin Auto test strip Ql (U) Negative Negative [facility] Urine leukocyte esterase det ection by automated test stripOrdered By: PROVIDER TEMP on 01-29-2022 Leukocyte esterase Auto test strip Ql (U) Negative Negative [facility] Urobilinogen Auto test strip (U) [Mass/Vol]Ordered By: PROVIDER TEMP on 01-29-2022 Urobilinogen (U) [Mass/Vol] Normal mg/dL Normal [facility] pH Auto test strip (U)Ordere d By: PROVIDER TEMP on 01-29-2022 pH (U) 5.5 [pH] 5.0-9.0 [facility] MRI C-SPINE WO/W CONon 03-12 MRI C-SPINE WO/W CON [address] [place] [address] Patient: JÚNIOR ROWLAND Exam Date: 03/12/2018DOB: 1960 Gender:M : BAKARI WHITE Admission #: [id number] : Order #: [id number] HERE TO VIEW EXAM RADIOLOGY REPORT PROCEDURE: [...] Rico M.D. on 03/12/2018 at 14:46 Normal [facility] *ANAEROBIC CULTUREon 018 *ANAEROBIC CULTURE Clinical Report: (D) Specimen: SWAB Collected: 02/17/2018 15:32 Status: Final Last Updated: 02/22/2018 09:55 ISO (Final) No Anaerobes Isolated Day 5 Normal [facility] Comment on above: Performed By: #### 8 5499 ####[facility] *BODY FLUID CULTUREon 2017 *BODY FLUID [...] <=0.5/9.5 Susceptible VANCOMYCIN (VA) 1 Susceptible Normal [facility] Comment on above: Performed By: #### 8 5499 ####[facility] Operative Reporton 8 Operative Report MR#: [id number] [facility] Pt. Name: Júnior Rowland [facility] #: [id number] Discharge Date: Birthdate: 1960 OPERATIVE REPORTDATE OF SURGERY: 11/20/2017SURGEON: Alek Mittal M.D.BILLET HEATER OPERATOR: Dr. [place] Bow[place].PREOPERATIVE DIAGNOSIS: Right knee septic bursitis with right knee woundmeasuring 9 x 3 cm.POSTOPERATIVE DIAGNOSIS: Right knee septic bursitis with right knee woundmeasuring 9 x 3 cm.PROCEDURE PERFORMED:1. Removal of soft tissue collar band creaser to right lower extremity.2. Irrigation and debridement of right knee wound measuring 9 x 3 cm down to the level of muscle.3. Secondary closure of right knee wound measuring 2 x 3 cm.IMPLANTS REMOVED: DermaClose soft tissue collar band creaser.ANESTHESIA: General.COMPLICATIONS: None.CLINICAL SUMMARY: The patient is a [...] 11/20/2017/02:34 P/Mt Bowen M.D.Date Trans: 11/20/2017 10:12 P/mmoDN_JN:[id number]: Fatou Ridley M.D. [address] [place] [address] Normal [facility] POC GLUCOSE LABon 11-20-2017 Glucose mass conc 95 mg/dL Normal 70-100 [facility] Comment on above: Performed By: #### 8 5499 ####[facility]3000 [facility] [place] [address], [facility] APTTon 11-19-2017 aPTT Coag time (Bld) 31.4 s Normal 25.0-35.0 [facility] Comment on above: Result Comment: ALL [...] THIS PURPOSE. Performed By: #### 5 6101 ####[facility]3000 [facility] [place] [address], [facility] BASIC METABOLIC PANELon 10-31 Calcium mass conc 9.8 mg/dL Normal 8.6-10.3 [facility] Comment on above: Performed By: #### 5 6101 ####[facility] [place] [address], [facility] Chloride molar conc 100 mmol/L Normal 98-107 [facility] Comment on above: Performed By: #### 5 6101 ####[facility] [place] [address], [facility] CO2 molar conc 29 mmol/L Normal 21-31 [facility] Comment on above: Performed By: #### 5 6101 ####[facility] [place] [address], [facility] Creatinine mass conc 0.99 mg/dL Normal 0.70-1.30 [facility] Comment on above: Performed By: #### 5 6101 ####[facility] [place] [address], [facility] GFR/1.73 sq M predicted among blacks MDRD vol rate/area (S/P/Bld) mL/min/{1.73_m2} Normal >60 [facility] Comment on above: Performed By: #### 5 6101 ####[facility] [place] [address], [facility] GFR/1.73 sq M predicted among non-blacks MDRD vol rate/area (S/P/Bld) mL/min/{1.73_m2} Normal >60 [facility] Comment on above: Performed By: #### 5 6101 ####[facility] [place] [address], [facility] Glucose mass conc 92 mg/dL Normal 70-100 [facility] Comment on above: Performed By: #### 5 6101 ####[facility] [place] [address], [facility] Potassium molar conc 4.4 mmol/L Normal 3.5-5.1 [facility] Comment on above: Performed By: #### 5 6101 ####[facility] [place] [address], [place] Sodium molar conc 136 mmol/L Normal 136-145 [facility] Comment on above: Performed By: #### 5 6101 ####[facility] [place] [address], [place] Urea nitrogen mass conc 16 mg/dL Normal 7-25 [facility] Comment on above: Performed By: #### 5 6101 ####[facility]3000 [facility].[address] CBC W/DIFFon 11-19-2017 ABS BASOPHILS 0.1 10*3/uL Normal 0.0-0.2 [facility] Comment on above: Performed By: #### 5 6101 ####[facility] ABS IMM GRANS 0.1 10*3/uL Normal 0.0-0.2 [facility] Comment on above: Performed By: #### 5 6101 ####[facility] ABS NEUTROPHILS 3.3 10*3/uL Normal 1.6-7.6 [facility] Comment on above: Performed By: #### 5 6101 ####[facility] Basophils Auto #/vol (Bld) 0.9 % Normal 0.0-1.0 [facility] Comment on above: Performed By: #### 5 6101 ####[facility] Eosinophils Auto #/vol (Bld) 0.1 10*3/uL Normal 0.0-0.5 [facility] Comment on above: Performed By: #### 5 6101 ####[facility] Eosinophils/100 WBC Auto (Bld) 2.5 % Normal 0.0-6.0 [facility] Comment on above: Performed By: #### 5 6101 ####[facility] Erythrocyte distribution width Auto Ratio (RBC) 14.1 % Normal 11.5-15.0 [facility] Comment on above: Performed By: #### 5 6101 ####[facility] Hematocrit Auto Volume Fraction (Bld) 33.5 % Low 39.0-50.0 [facility] Comment on above: Performed By: #### 5 6101 ####[facility] Hemoglobin mass conc (Bld) 10.4 g/dL Low 13.0-17.0 [facility] Comment on above: Performed By: #### 5 1 ####[address] IMMATURE GRANS 1.6 % High 0.0-1.0 [facility] Comment on above: Performed By: #### 5 6100 ####[address] Lymphocytes Auto #/vol (Bld) 1.6 10*3/uL Normal 1.2-4.0 [facility] Comment on above: Performed By: #### 5 6101 ####[address] Lymphocytes/100 WBC Auto (Bld) 28.7 % Normal 20.0-45.0 [facility] Comment on above: Performed By: #### 5 6101 ####[address] MCH Auto Entitic mass (RBC) 27.4 pg Normal 27.0-33.0 [facility] Comment on above: Performed By: #### 5 6101 ####[address] MCHC Auto mass conc (RBC) 31.0 g/dL Low 32.0-35.0 [facility] Comment on above: Performed By: #### 5 610 ####[facility]3000 [facility].[address] MCV Auto Entitic volume (RBC) 88.2 fL Normal 82.0-98.0 [facility] Comment on above: Performed By: #### 5 610 ####[facility]3000 [facility].[address] Monocytes Auto #/vol (Bld) 0.4 10*3/uL Normal 0.1-1.0 [facility] Comment on above: Performed By: #### 5 6100 ####[facility] MONOS 7.7 % Normal 5.0-12.0 [facility] Comment on above: Performed By: #### 5 6100 ####[facility]3000 [facility].[address] Neutrophils/100 WBC Auto (Bld) 58.6 % Normal 40.0-72.0 [facility] Comment on above: Performed By: #### 5 6100 ####[place] [address] [facility].[address] Nucleated RBC/100 WBC Ratio (Bld) 0 % Normal 0-0 [facility] Comment on above: Performed By: #### 5 6100 ####[facility]3000 [facility].[address] PLAT CNT 455 10*3/uL High 150-400 [facility] Comment on above: Performed By: #### 5 610 ####[facility]3000 [facility].[address] RBC Auto #/vol (Bld) 3.80 10*6/uL Low 4.20-5.70 [facility] Comment on above: Performed By: #### 5 6100 ####[facility]3000 [facility].[address] WBC Auto #/vol (Bld) 5.68 10*3/uL Normal 4.00-10.60 [facility] Comment on above: Performed By: #### 5 6101 ####[place] [address] [facility].[address] PROTHROMBIN TIMEon 8 INR Coag RelTime (PPP) 1.09 {INR} Normal 0.91-1.16 [facility] Comment on above: Result Comment: ACC[facility] P RECOMMENDED INR FOR WARFARIN THERAPY CONDITION INRPROPHYLAXIS OF VENOUS THROMBOSIS 2-3(HIGH-RISK SURGERY)TREATMENT OF VENOUS THROMBOSIS 2-3TREATMENT OF PULMONARY EMBOLISM 2-3PREVENTION OF SYSTEMIC EMBOLISM: 2-3 ACUTE MYOCARDIAL INFARCTION TISSUE HEART VALVES VALVULAR HEART DISEASE ATRIAL FIBRILLATION RECURRENT SYSTEMIC EMBOLISMMECHANICAL HEART VALVE 2.5-3.5 FROM: ORAL ANTICOAGULANTS. MECHANISM OF ACTION, CLINICALEFFECTIVENESS, AND OPTIMAL THERAPEUTIC RANGE. [id number];108:[id number]-246S. Performed By: #### 5 6101 ####[facility]3000 [facility].[address] Prothrombin time (PT) Coag time (PPP) 14.1 s Normal 12.3-14.8 [facility] Comment on above: Result Comment: ALL RESULTS MUST BE INTERPRETED WITH RESPECT TO BLOOD DRAWING ARTIFACTOR DILUTION ERROR OF ANTICOAGULANT AT THE TIME OF SAMPLING. Performed By: #### 5 6101 ####[facility]3000 [place], [place] [address] [place] [address] Discharge Summaryon 11-19-19 18 Discharge Summary MR#: [id number] [facility] Admitted: 11/02/2017 Discharged: 11/12/2017 Date of : 1960 Physician: Alek Mittal M.D. DISCHARGE SUMMARYPRINCIPAL DIAGNOSES:1. Right knee septic bursitis.2. Morbid obesity.CONSULTS:1. Pain management.2. Infectious Disease.HOSPITAL COURSE: This is a 57-year-old male who presented to [facility] as atransfer from [facility] with complaint of right knee septicbursitis. At [facility], he underwent irrigation and debridement. Culturesobtained at that time were positive for MRSA. The patient was started onIV vancomycin during his hospital stay. His symptoms continued to persist,so he was transferred to [facility] for further management. He underwent rightknee irrigation [...] Dict: 11/17/2017/02:30 P/Yasmine Odonnell Trans: 11/17/2017 11:45 P/AmparoN_JN:[id number] 0cc: Fatou Ridley M.D. [address] [place] [address] Kristie Tamayo [address] [place] [address] [address] [place] [address] Normal [facility] Operative Reporton 8 Operative Report MR#: [id number] [facility] Room #: [id number] Discharge Date: Birthdate: 1960 OPERATIVE REPORTDATE OF [...] extubated without incident. He was transferred to [facility] in stable condition for postoperative monitoring.POSTOPERATIVE PLAN: The patient will be weightbearing as tolerated to theright lower extremity. He will maintain his dressing until his follow upin 1 week. He will be discharged home with Bactrim, [place], and a stoolsoftener. We will plan on seeing the patient back in 1 week for woundevaluation and tensioning of the DermaClose device. The patient wasinstructed to call Dr. Mittal's office or the Orthopedic Surgeryresident front desk coordinator with any questions or concerns prior to his followupappointment.Dr. Mittal was present throughout the entirety of the procedure.Electronically Signed by:Alek Mittal M.D. 11/14/2017 01:06 P Alek Mittal M.D. I was present for the entire procedure. Date Dict: 11/11/2017/02:42 P/Maude Espinal, MDDate Trans: 11/12/2017 12:38 A/rivasoDN_JN:[id number] 9cc: Fatou Ridley M.D. [address] [place] [address] [place], [address] [facility] [address] [place] [address] Normal [facility] *ANAEROBIC CULTUREon 018 *ANAEROBIC CULTURE Clinical Report: (D) Specimen/Source: SWAB/INTRAOP SPEC Collected: 11/11/2017 14:30 Status: Final Last Updated: 11/16/2017 08:46 (1) 2. Right knee swab. CULT RES (Final) No Anaerobes Isolated 5 Days Normal [facility] Comment on above: Order Comment: No: D o not add to previous draw Performed By: #### 5 6101 ####[facility] *ANAEROBIC CULTURE Clinical Report: (D) Specimen/Source: FLUID/INTRAOP SPEC Collected: 11/11/2017 14:29 Status: Final Last Updated: 11/16/2017 08:46 (1) 1. Right knee aspiration. CULT RES (Final) No Anaerobes Isolated 5 Days Normal [facility] Comment on above: Order Comment: No: D o not add to previous draw Performed By: #### 5 6101 ####[facility] *BODY FLUID CULTUREon 2017 *BODY FLUID CULTURE Clinical Report: (D) Specimen/Source: FLUID/INTRAOP SPEC Collected: 11/11/2017 14:29 Status: Final Last Updated: 11/16/2017 09:06 (1) 1. Right knee aspiration. GRAM (Final) No Polys Seen No Bacteria Seen CYTOSPUN (Final) This Gram Stain was done on a cytocentrifuged specimen CULT RES (Final) No Growth Day 5 Normal [facility] Comment on above: Order Comment: No: D o not add to previous draw Performed By: #### 5 6101 ####[facility] *FUNGAL CULTUREon 11-11-2017 *FUNGAL CULTURE Clinical Report: (D) Specimen/Source: FLUID/INTRAOP SPEC Collected: 11/11/2017 14:29 Status: Final Last Updated: 12/14/2017 15:51 (1) 1. Right knee aspiration. FS (Final) No Yeast or Fungal Elements Seen CULT RES (Final) Culture negative for fungus Normal [facility] Comment on above: Order Comment: No: D o not add to previous draw Performed By: #### 5 6101 ####[facility] *WOUND CULTUREon 11-11-2017 *WOUND CULTURE Clinical Report: (D) Specimen/Source: WOUND/INTRAOP SPEC Collected: 11/11/2017 14:30 Status: Final Last Updated: 11/16/2017 09:07 (1) 2. Right knee swab. GRAM (Final) Rare Polys No Bacteria Seen CULT RES (Final) No Growth Day 5 Normal [facility] Comment on above: Order Comment: 2. Ri ght knee swab. Performed By: #### 6 2586 ####[facility] POC GLUCOSE LABon 11-11-2017 Glucose mass conc 114 mg/dL High 70-100 [facility] Comment on above: Performed By: #### 6 2586 ####[facility] [place] [address], [facility] BASIC METABOLIC PANELon 06- Calcium mass conc 8.6 mg/dL Normal 8.6-10.3 [facility] Comment on above: Order Comment: No: D o not add to previous draw Performed By: #### 6 2586 ####[facility] [place] [address], [place] Chloride molar conc 100 mmol/L Normal 98-107 [facility] Comment on above: Order Comment: No: D o not add to previous draw Performed By: #### 6 2586 ####[facility] [place] [address], [place] CO2 molar conc 33 mmol/L High 21-31 [facility] Comment on above: Order Comment: No: D o not add to previous draw Performed By: #### 6 2586 ####[facility] [place] [address], [place] Creatinine mass conc 1.03 mg/dL Normal 0.70-1.30 [facility] Comment on above: Order Comment: No: D o not add to previous draw Performed By: #### 6 2586 ####[facility] [place] [address], [place] GFR/1.73 sq M predicted among blacks MDRD vol rate/area (S/P/Bld) mL/min/{1.73_m2} Normal >60 [facility] Comment on above: Order Comment: No: D o not add to previous draw Performed By: #### 6 2586 ####[facility] [place] [address], [place] GFR/1.73 sq M predicted among non-blacks MDRD vol rate/area (S/P/Bld) mL/min/{1.73_m2} Normal >60 [facility] Comment on above: Order Comment: No: D o not add to previous draw Performed By: #### 6 2586 ####[facility] Glucose mass conc 106 mg/dL High 70-100 [facility] Comment on above: Order Comment: No: D o not add to previous draw Performed By: #### 6 2586 ####[facility]3000 [facility].[address] Potassium molar conc 4.0 mmol/L Normal 3.5-5.1 [facility] Comment on above: Order Comment: No: D o not add to previous draw Performed By: #### 6 2586 ####[facility]3000 [facility] [place] [address], [facility] Sodium molar conc 136 mmol/L Normal 136-145 [facility] Comment on above: Order Comment: No: D o not add to previous draw Performed By: #### 6 2586 ####[facility]3000 [facility].[address] Urea nitrogen mass conc 11 mg/dL Normal 7-25 [facility] Comment on above: Order Comment: No: D o not add to previous draw Performed By: #### 6 2586 ####[facility]3000 [facility] [place] [address], [facility] CBC W/DIFFon 11-09-2017 ABS BASOPHILS 0.0 10*3/uL Normal 0.0-0.2 [facility] Comment on above: Order Comment: No: D o not add to previous draw Performed By: #### 6 2586 ####[facility] [place] [address], [facility] ABS NEUTROPHILS 1.4 10*3/uL Low 1.6-7.6 [facility] Comment on above: Order Comment: No: D o not add to previous draw Performed By: #### 6 2586 ####[facility] [place] [address], [facility] Basophils Auto #/vol (Bld) 0.0 % Normal 0.0-1.0 [facility] Comment on above: Order Comment: No: D o not add to previous draw Performed By: #### 6 2586 ####[facility] [place] [address], [facility] Eosinophils Auto #/vol (Bld) 0.0 10*3/uL Normal 0.0-0.5 [facility] Comment on above: Order Comment: No: D o not add to previous draw Performed By: #### 6 2586 ####[facility]3000 [facility].[address] Eosinophils/100 WBC Auto (Bld) 0.9 % Normal 0.0-6.0 [facility] Comment on above: Order Comment: No: D o not add to previous draw Performed By: #### 6 2586 ####[facility] Erythrocyte distribution width Auto Ratio (RBC) 13.6 % Normal 11.5-15.0 [facility] Comment on above: Order Comment: No: D o not add to previous draw Performed By: #### 6 2586 ####[facility]3000 [facility].[address] GIANT PLATELETS Present Normal [facility] Comment on above: Order Comment: No: D o not add to previous draw Performed By: #### 6 2586 ####[facility]3000 [facility].[address] Hematocrit Auto Volume Fraction (Bld) 29.2 % Low 39.0-50.0 [facility] Comment on above: Order Comment: No: D o not add to previous draw Performed By: #### 6 2586 ####[facility] Hemoglobin mass conc (Bld) 9.2 g/dL Low 13.0-17.0 [facility] Comment on above: Order Comment: No: D o not add to previous draw Performed By: #### 6 2586 ####[facility] [place] [address], [facility] Lymphocytes Auto #/vol (Bld) 0.7 10*3/uL Low 1.2-4.0 [facility] Comment on above: Order Comment: No: D o not add to previous draw Performed By: #### 6 2586 ####[facility] Lymphocytes/100 WBC Auto (Bld) 30.0 % Normal 20.0-45.0 [facility] Comment on above: Order Comment: No: D o not add to previous draw Performed By: #### 6 2586 ####[facility] MCH Auto Entitic mass (RBC) 27.7 pg Normal 27.0-33.0 [facility] Comment on above: Order Comment: No: D o not add to previous draw Performed By: #### 6 2586 ####[facility] MCHC Auto mass conc (RBC) 31.5 g/dL Low 32.0-35.0 [facility] Comment on above: Order Comment: No: D o not add to previous draw Performed By: #### 6 2586 ####[facility] [place] [address], [facility] MCV Auto Entitic volume (RBC) 88.0 fL Normal 82.0-98.0 [facility] Comment on above: Order Comment: No: D o not add to previous draw Performed By: #### 6 2586 ####[facility] [place] [address], [facility] Monocytes Auto #/vol (Bld) 0.2 10*3/uL Normal 0.1-1.0 [facility] Comment on above: Order Comment: No: D o not add to previous draw Performed By: #### 6 2586 ####[facility] [place] [address], [facility] MONOS 7.3 % Normal 5.0-12.0 [facility] Comment on above: Order Comment: No: D o not add to previous draw Performed By: #### 6 2586 ####[facility] [place] [address], [facility] Neutrophils/100 WBC Auto (Bld) 61.8 % Normal 40.0-72.0 [facility] Comment on above: Order Comment: No: D o not add to previous draw Performed By: #### 6 2586 ####[facility] NRBC SCAN Present Normal [facility] Comment on above: Order Comment: No: D o not add to previous draw Performed By: #### 6 2586 ####[facility] [place] [address], [facility] Nucleated RBC/100 WBC Ratio (Bld) 0 % Normal 0-0 [facility] Comment on above: Order Comment: No: D o not add to previous draw Performed By: #### 6 2586 ####[facility] [place] [address], [facility] PLAT CNT 211 10*3/uL Normal 150-400 [facility] Comment on above: Order Comment: No: D o not add to previous draw Performed By: #### 6 2586 ####[facility] [place] [address], [facility] RBC Auto #/vol (Bld) 3.32 10*6/uL Low 4.20-5.70 [facility] Comment on above: Order Comment: No: D o not add to previous draw Performed By: #### 6 2586 ####[facility] WBC Auto #/vol (Bld) 2.24 10*3/uL Low 4.00-10.60 [facility] Comment on above: Order Comment: No: D o not add to previous draw Performed By: #### 6 2586 ####[facility] *BLOOD CULTUREon 11-08-2017 *BLOOD CULTURE Clinical Report: (D) Specimen: BLOOD CULTURE Collected: 11/08/2017 17:46 Status: Final Last Updated: 11/14/2017 06:29 CULT RES (Final) No Growth Day 5 Normal [facility] Comment on above: Performed By: #### 6 2586 ####[facility] BASIC METABOLIC PANELon 10-30 Calcium mass conc 8.5 mg/dL Low 8.6-10.3 [facility] Comment on above: Order Comment: No: D o not add to previous draw Performed By: #### 6 2586 ####[facility] [place] [address], [facility] Chloride molar conc 100 mmol/L Normal 98-107 [facility] Comment on above: Order Comment: No: D o not add to previous draw Performed By: #### 6 2586 ####[facility] [place] [address], [facility] [facility] CO2 molar conc 33 mmol/L High 21-31 [facility] Comment on above: Order Comment: No: D o not add to previous draw Performed By: #### 6 2586 ####[facility] [place] [address], [facility] Creatinine mass conc 0.94 mg/dL Normal 0.70-1.30 [facility] Comment on above: Order Comment: No: D o not add to previous draw Performed By: #### 6 2586 ####[facility] [place] [address], [facility] GFR/1.73 sq M predicted among blacks MDRD vol rate/area (S/P/Bld) mL/min/{1.73_m2} Normal >60 [facility] Comment on above: Order Comment: No: D o not add to previous draw Performed By: #### 6 2586 ####[facility] [place] [address], [facility] GFR/1.73 sq M predicted among non-blacks MDRD vol rate/area (S/P/Bld) mL/min/{1.73_m2} Normal >60 [facility] Comment on above: Order Comment: No: D o not add to previous draw Performed By: #### 6 2586 ####[facility] [place] [address], [facility] Glucose mass conc 96 mg/dL Normal 70-100 [facility] Comment on above: Order Comment: No: D o not add to previous draw Performed By: #### 6 2586 ####[facility] [place] [address], [facility] Potassium molar conc 4.1 mmol/L Normal 3.5-5.1 [facility] Comment on above: Order Comment: No: D o not add to previous draw Performed By: #### 6 2586 ####[facility] [place] [address], [facility] Sodium molar conc 134 mmol/L Low 136-145 [facility] Comment on above: Order Comment: No: D o not add to previous draw Performed By: #### 6 2586 ####[facility] Urea nitrogen mass conc 11 mg/dL Normal 7-25 [facility] Comment on above: Order Comment: No: D o not add to previous draw Performed By: #### 6 2586 ####[facility] CBC W/DIFFon 11-08-2017 ABS BASOPHILS 0.0 10*3/uL Normal 0.0-0.2 [facility] Comment on above: Order Comment: Yes: Add to Previous draw if able Performed By: #### 6 2586 ####[facility] ABS IMM GRANS 0.0 10*3/uL Normal 0.0-0.2 [facility] Comment on above: Order Comment: Yes: Add to Previous draw if able Performed By: #### 6 2586 ####[facility] ABS NEUTROPHILS 1.2 10*3/uL Low 1.6-7.6 [facility] Comment on above: Order Comment: Yes: Add to Previous draw if able Performed By: #### 6 2586 ####[facility] Basophils Auto #/vol (Bld) 0.8 % Normal 0.0-1.0 [facility] Comment on above: Order Comment: Yes: Add to Previous draw if able Performed By: #### 6 2586 ####[facility] Eosinophils Auto #/vol (Bld) 0.1 10*3/uL Normal 0.0-0.5 [facility] Comment on above: Order Comment: Yes: Add to Previous draw if able Performed By: #### 6 2586 ####[facility] Eosinophils/100 WBC Auto (Bld) 4.7 % Normal 0.0-6.0 [facility] Comment on above: Order Comment: Yes: Add to Previous draw if able Performed By: #### 6 2586 ####[facility] Erythrocyte distribution width Auto Ratio (RBC) 13.7 % Normal 11.5-15.0 [facility] Comment on above: Order Comment: Yes: Add to Previous draw if able Performed By: #### 6 2586 ####[facility]3000 [facility] Hematocrit Auto Volume Fraction (Bld) 31.9 % Low 39.0-50.0 [facility] Comment on above: Order Comment: Yes: Add to Previous draw if able Performed By: #### 6 2586 ####[facility] Hemoglobin mass conc (Bld) 9.6 g/dL Low 13.0-17.0 [facility] Comment on above: Order Comment: Yes: Add to Previous draw if able Performed By: #### 6 2586 ####[facility]300[facility] IMMATURE GRANS 1.2 % High 0.0-1.0 [facility] Comment on above: Order Comment: Yes: Add to Previous draw if able Performed By: #### 6 2586 ####[facility] Lymphocytes Auto #/vol (Bld) 0.8 10*3/uL Low 1.2-4.0 [facility] Comment on above: Order Comment: Yes: Add to Previous draw if able Performed By: #### 6 3446 ####[facility] [place] [address], [facility] Lymphocytes/100 WBC Auto (Bld) 32.7 % Normal 20.0-45.0 [facility] Comment on above: Order Comment: Yes: Add to Previous draw if able Performed By: #### 6 2586 ####[facility] MCH Auto Entitic mass (RBC) 27.6 pg Normal 27.0-33.0 [facility] Comment on above: Order Comment: Yes: Add to Previous draw if able Performed By: #### 6 2586 ####[facility] MCHC Auto mass conc (RBC) 30.1 g/dL Low 32.0-35.0 [facility] Comment on above: Order Comment: Yes: Add to Previous draw if able Performed By: #### 6 2586 ####[facility] MCV Auto Entitic volume (RBC) 91.7 fL Normal 82.0-98.0 [facility] Comment on above: Order Comment: Yes: Add to Previous draw if able Performed By: #### 6 2586 ####[facility] Monocytes Auto #/vol (Bld) 0.4 10*3/uL Normal 0.1-1.0 [facility] Comment on above: Order Comment: Yes: Add to Previous draw if able Performed By: #### 6 2586 ####[facility] MONOS 14.6 % High 5.0-12.0 [facility] Comment on above: Order Comment: Yes: Add to Previous draw if able Performed By: #### 6 2586 ####[facility] Neutrophils/100 WBC Auto (Bld) 46.0 % Normal 40.0-72.0 [facility] Comment on above: Order Comment: Yes: Add to Previous draw if able Performed By: #### 6 2586 ####[facility] [place] [address] Nucleated RBC/100 WBC Ratio (Bld) 0 % Normal 0-0 [facility] Comment on above: Order Comment: Yes: Add to Previous draw if able Performed By: #### 6 2586 ####[facility] [place] [address] PLAT CNT 228 10*3/uL Normal 150-400 [facility] Comment on above: Order Comment: Yes: Add to Previous draw if able Performed By: #### 6 2586 ####[facility] [place] [address] RBC Auto #/vol (Bld) 3.48 10*6/uL Low 4.20-5.70 [facility] Comment on above: Order Comment: Yes: Add to Previous draw if able Performed By: #### 6 2586 ####[facility] [place] [address] WBC Auto #/vol (Bld) 2.54 10*3/uL Low 4.00-10.60 [facility] Comment on above: Order Comment: Yes: Add to Previous draw if able Performed By: #### 6 2586 ####[facility] [place] [address] CBC W/DIFFon 11-07-2017 ABS BASOPHILS 0.0 10*3/uL Normal 0.0-0.2 [facility] Comment on above: Order Comment: No: D o not add to previous draw Performed By: #### 0 0121 ####[facility] [place] [address] ABS IMM GRANS 0.0 10*3/uL Normal 0.0-0.2 [facility] Comment on above: Order Comment: No: D o not add to previous draw Performed By: #### 0 0121 ####[facility] [place] [address], [facility] ABS NEUTROPHILS 1.7 10*3/uL Normal 1.6-7.6 [facility] Comment on above: Order Comment: No: D o not add to previous draw Performed By: #### 0 0121 ####[facility] [place] [address], [facility] Basophils Auto #/vol (Bld) 0.4 % Normal 0.0-1.0 [facility] Comment on above: Order Comment: No: D o not add to previous draw Performed By: #### 0 0121 ####[facility] [place] [address], [facility] Eosinophils Auto #/vol (Bld) 0.1 10*3/uL Normal 0.0-0.5 [facility] Comment on above: Order Comment: No: D o not add to previous draw Performed By: #### 0 0121 ####[facility] [place] [address], [facility] Eosinophils/100 WBC Auto (Bld) 3.6 % Normal 0.0-6.0 [facility] Comment on above: Order Comment: No: D o not add to previous draw Performed By: #### 0 0121 ####[facility] Erythrocyte distribution width Auto Ratio (RBC) 13.3 % Normal 11.5-15.0 [facility] Comment on above: Order Comment: No: D o not add to previous draw Performed By: #### 0 0121 ####[facility] Hematocrit Auto Volume Fraction (Bld) 31.4 % Low 39.0-50.0 [facility] Comment on above: Order Comment: No: D o not add to previous draw Performed By: #### 0 0121 ####[facility] Hemoglobin mass conc (Bld) 9.8 g/dL Low 13.0-17.0 [facility] Comment on above: Order Comment: No: D o not add to previous draw Performed By: #### 0 0121 ####[facility] IMMATURE GRANS 1.1 % High 0.0-1.0 [facility] Comment on above: Order Comment: No: D o not add to previous draw Performed By: #### 0 0121 ####[place] [address] [address] Lymphocytes Auto #/vol (Bld) 0.6 10*3/uL Low 1.2-4.0 [facility] Comment on above: Order Comment: No: D o not add to previous draw Performed By: #### 0 0121 ####[place] [address] Lymphocytes/100 WBC Auto (Bld) 21.0 % Normal 20.0-45.0 [facility] Comment on above: Order Comment: No: D o not add to previous draw Performed By: #### 0 0121 ####[facility] MCH Auto Entitic mass (RBC) 28.0 pg Normal 27.0-33.0 [facility] Comment on above: Order Comment: No: D o not add to previous draw Performed By: #### 0 0121 ####[facility] MCHC Auto mass conc (RBC) 31.2 g/dL Low 32.0-35.0 [facility] Comment on above: Order Comment: No: D o not add to previous draw Performed By: #### 0 0121 ####[facility] MCV Auto Entitic volume (RBC) 89.7 fL Normal 82.0-98.0 [facility] Comment on above: Order Comment: No: D o not add to previous draw Performed By: #### 0 0121 ####[facility] Monocytes Auto #/vol (Bld) 0.3 10*3/uL Normal 0.1-1.0 [facility] Comment on above: Order Comment: No: D o not add to previous draw Performed By: #### 0 0121 ####[facility] MONOS 10.9 % Normal 5.0-12.0 [facility] Comment on above: Order Comment: No: D o not add to previous draw Performed By: #### 0 0121 ####[facility] Neutrophils/100 WBC Auto (Bld) 63.0 % Normal 40.0-72.0 [facility] Comment on above: Order Comment: No: D o not add to previous draw Performed By: #### 0 0121 ####[facility] Nucleated RBC/100 WBC Ratio (Bld) 0 % Normal 0-0 [facility] Comment on above: Order Comment: No: D o not add to previous draw Performed By: #### 0 0121 ####[facility] PLAT CNT 237 10*3/uL Normal 150-400 [facility] Comment on above: Order Comment: No: D o not add to previous draw Performed By: #### 0 0121 ####[facility] RBC Auto #/vol (Bld) 3.50 10*6/uL Low 4.20-5.70 [facility] Comment on above: Order Comment: No: D o not add to previous draw Performed By: #### 0 0121 ####[facility]3000 [facility].[address] WBC Auto #/vol (Bld) 2.76 10*3/uL Low 4.00-10.60 [facility] Comment on above: Order Comment: No: D o not add to previous draw Performed By: #### 0 0121 ####[facility] PROCALCITONINon 11-07-2017 Protein mass conc 0.10 ng/mL Normal 0.00-0.10 [facility] Comment on above: Order Comment: Yes: [...] andinitial PCT<0.5ng/mL Performed By: #### 6 2586 ####[facility] *BLOOD CULTUREon 11-06-2017 *BLOOD CULTURE Clinical Report: (D) Specimen: BLOOD CULTURE Collected: 11/06/2017 11:01 Status: Final Last Updated: 11/11/2017 15:39 CULT RES (Final) No Growth Day 5 Normal [facility] Comment on above: Performed By: #### 0 0121 ####[address] BASIC METABOLIC PANELon Calcium mass conc 8.5 mg/dL Low 8.6-10.3 [facility] Comment on above: Order Comment: No: D o not add to previous draw Performed By: #### 5 06, 33651 ####[place] [address] [address] Chloride molar conc 102 mmol/L Normal 98-107 [facility] Comment on above: Order Comment: No: D o not add to previous draw Performed By: #### 5 06, 70150 ####[place] [address] [facility].[address] CO2 molar conc 30 mmol/L Normal 21-31 [facility] Comment on above: Order Comment: No: D o not add to previous draw Performed By: #### 5 06, 27732 ####[place] [address] [facility] [place] [address], [facility] Creatinine mass conc 0.91 mg/dL Normal 0.70-1.30 [facility] Comment on above: Order Comment: No: D o not add to previous draw Performed By: #### 5 06, 49416 ####[place] [address] [facility] [place] [address], [facility] GFR/1.73 sq M predicted among blacks MDRD vol rate/area (S/P/Bld) mL/min/{1.73_m2} Normal >60 [facility] Comment on above: Order Comment: No: D o not add to previous draw Performed By: #### 5 06, 39290 ####[facility] [place] [address], [facility] GFR/1.73 sq M predicted among non-blacks MDRD vol rate/area (S/P/Bld) mL/min/{1.73_m2} Normal >60 [facility] Comment on above: Order Comment: No: D o not add to previous draw Performed By: #### 5 06, 64072 ####[place] [address] [facility] [place] [address], [facility] Glucose mass conc 99 mg/dL Normal 70-100 [facility] Comment on above: Order Comment: No: D o not add to previous draw Performed By: #### 5 06, 77538 ####[place] [address] [facility] [address], [facility] Potassium molar conc 4.1 mmol/L Normal 3.5-5.1 [facility] Comment on above: Order Comment: No: D o not add to previous draw Performed By: #### 5 06, 92951 ####[facility] [place] [address], [facility] Sodium molar conc 137 mmol/L Normal 136-145 [facility] Comment on above: Order Comment: No: D o not add to previous draw Performed By: #### 5 06, 82721 ####[facility] [id number], [facility] Urea nitrogen mass conc 9 mg/dL Normal 7-25 [facility] Comment on above: Order Comment: No: D o not add to previous draw Performed By: #### 5 06, 53641 ####[facility] CBC W/DIFFon 11-06-2017 ABS BASOPHILS 0.0 10*3/uL Normal 0.0-0.2 [facility] Comment on above: Order Comment: No: D o not add to previous draw Performed By: #### 5 0608, 07396 ####[facility] ABS IMM GRANS 0.0 10*3/uL Normal 0.0-0.2 [facility] Comment on above: Order Comment: No: D o not add to previous draw Performed By: #### 5 0608, 55759 ####[facility] ABS NEUTROPHILS 3.9 10*3/uL Normal 1.6-7.6 [facility] Comment on above: Order Comment: No: D o not add to previous draw Performed By: #### 5 0608, 45952 ####[address] Basophils Auto #/vol (Bld) 0.5 % Normal 0.0-1.0 [facility] Comment on above: Order Comment: No: D o not add to previous draw Performed By: #### 5 06, 06795 ####[facility] Eosinophils Auto #/vol (Bld) 0.3 10*3/uL Normal 0.0-0.5 [facility] Comment on above: Order Comment: No: D o not add to previous draw Performed By: #### 5 0608, 27733 ####[facility] Eosinophils/100 WBC Auto (Bld) 5.2 % Normal 0.0-6.0 [facility] Comment on above: Order Comment: No: D o not add to previous draw Performed By: #### 5 607, 84938 ####[facility]3000 [facility].[address] Erythrocyte distribution width Auto Ratio (RBC) 13.1 % Normal 11.5-15.0 [facility] Comment on above: Order Comment: No: D o not add to previous draw Performed By: #### 5 607, 42896 ####[facility] Hematocrit Auto Volume Fraction (Bld) 30.6 % Low 39.0-50.0 [facility] Comment on above: Order Comment: No: D o not add to previous draw Performed By: #### 5 607, 91291 ####[address] Hemoglobin mass conc (Bld) 9.4 g/dL Low 13.0-17.0 [facility] Comment on above: Order Comment: No: D o not add to previous draw Performed By: #### 5 607, 67610 ####[address] IMMATURE GRANS 0.3 % Normal 0.0-1.0 [facility] Comment on above: Order Comment: No: D o not add to previous draw Performed By: #### 5 607, 23934 ####[address] Lymphocytes Auto #/vol (Bld) 1.3 10*3/uL Normal 1.2-4.0 [facility] Comment on above: Order Comment: No: D o not add to previous draw Performed By: #### 5 607, 09121 ####[address] Lymphocytes/100 WBC Auto (Bld) 21.6 % Normal 20.0-45.0 [facility] Comment on above: Order Comment: No: D o not add to previous draw Performed By: #### 5 06, 79269 ####[facility]3000 [facility].[address] MCH Auto Entitic mass (RBC) 27.5 pg Normal 27.0-33.0 [facility] Comment on above: Order Comment: No: D o not add to previous draw Performed By: #### 5 607, 40249 ####[facility]3000 [facility].[address] MCHC Auto mass conc (RBC) 30.7 g/dL Low 32.0-35.0 [facility] Comment on above: Order Comment: No: D o not add to previous draw Performed By: #### 5 607, 45836 ####[facility]3000 [facility].[address] MCV Auto Entitic volume (RBC) 89.5 fL Normal 82.0-98.0 [facility] Comment on above: Order Comment: No: D o not add to previous draw Performed By: #### 5 607, 08457 ####[facility]3000 [facility].[address] Monocytes Auto #/vol (Bld) 0.6 10*3/uL Normal 0.1-1.0 [facility] Comment on above: Order Comment: No: D o not add to previous draw Performed By: #### 5 607, 30072 ####[facility]3000 [facility].[address] MONOS 9.4 % Normal 5.0-12.0 [facility] Comment on above: Order Comment: No: D o not add to previous draw Performed By: #### 5 607, 34327 ####[facility]3000 [facility].[address] Neutrophils/100 WBC Auto (Bld) 63.0 % Normal 40.0-72.0 [facility] Comment on above: Order Comment: No: D o not add to previous draw Performed By: #### 5 0608, 09270 ####[facility] Nucleated RBC/100 WBC Ratio (Bld) 0 % Normal 0-0 [facility] Comment on above: Order Comment: No: D o not add to previous draw Performed By: #### 5 0608, 40929 ####[facility]3000 [facility].[address] PLAT CNT 260 10*3/uL Normal 150-400 [facility] Comment on above: Order Comment: No: D o not add to previous draw Performed By: #### 5 0608, 77360 ####[facility]3000 [facility].[address] RBC Auto #/vol (Bld) 3.42 10*6/uL Low 4.20-5.70 [facility] Comment on above: Order Comment: No: D o not add to previous draw Performed By: #### 5 0608, 92351 ####[facility]3000 [facility].[address] WBC Auto #/vol (Bld) 6.15 10*3/uL Normal 4.00-10.60 [facility] Comment on above: Order Comment: No: D o not add to previous draw Performed By: #### 5 0608, 08901 ####[facility]3000 [facility].[address] Consultationon 11-06-2017 Consultation MR#: [id number] Row[facility] Date of Service: 11/06/2017 Room #: [id number] Birthdate: 1960 Referring Physician: CONSULTATIONREASON FOR CONSULTATION: Fever, possible right knee bursitis/sepsis.HISTORY OF PRESENT ILLNESS: This is a 57-year-old gentleman with no pastmedical history, who [facility]. The patient has right knee septic bursitis andhe underwent for I and D at [facility]. Culture from [facility] showed MRSA. The patient was transferred to [facility] to be evaluatedby Orthopedic Service. The patient [...] will discuss with the ID regardinggoing for SILAVNO instead of echocardiogram. The patient continued to spikefever. The patient should be on DVT prophylaxis in the hospital stay.Electronically Signed by:MYNOR Johnson MD 11/08/2017 09:21 A ____MYNOR Johnson, MDDate Dict: 11/06/2017/10:53 A/KAMALJIT Navaate Trans: 11/06/2017 11:40 A/AmparoN_JN:[id number]: Fatou Ridley M.D. [address] [place] [address] Kristie Tamayo DO [address] [facility] [address] [place] [address] Normal [facility] LACTATE BLOODon 11-06-2017 Lactate molar conc 1.0 mmol/L Normal .5-2.2 [facility] Comment on above: Order Comment: No: D o not add to previous draw Performed By: #### 0 0121 ####[facility] [place] [address], [facility] MAGNESIUM BLOODon 11-06-2017 Magnesium mass conc 1.9 mg/dL Normal 1.9-2.7 [facility] Comment on above: Order Comment: No: D o not add to previous draw Performed By: #### 0 0121 ####[facility] Magnesium mass conc 2.0 mg/dL Normal 1.9-2.7 [facility] Comment on above: Performed By: #### 5 0608, 77868 ####[facility]3000 [facility].[address] Operative Reporton 8 Operative Report MR#: [id number] [facility]ior Rowland Room #: [id number] Discharge Date: Birthdate: 1960 OPERATIVE REPORTDATE OF [...] 11/05/2017/02:05 Kika/Mt Bowen M.D.Date Trans: 11/06/2017 01:02 Suma/Adele_JN:[id number]: Fatou Ridley M.D. [facility] [place] [address] Kristie Tamayo [address] [facility] [address] [place] [id number] Normal [facility] PHOSPHORUS BLOODon 8 Phosphate mass conc 3.0 mg/dL Normal 2.5-5.0 [facility] Comment on above: Performed By: #### 0 0121 ####[address] PORTABLE CHEST 1 VIEWon PORTABLE CHEST 1 VIEW [facility] [address] [place] [address] ==Patient Name: JÚNIOR ROWLAND : 1960ex: MAge: Race: WhiteMRN: [id number]. Location: [id number] Status: IVisit #: [id number] Date: 11/06/2017 9:50:00 AMCompleted Date: 11/06/2017 10:37 AMRequesting Provider: GILDA HARRIS Attending Provider: ALEK MITTAL Report Copy To: Signs & Symptoms: TachycardiaHistory: Patient history not availableComments: R/O Pneumonia, abnormal RCMSExam: PORTABLE CHEST 1 VIEWAccession #: [id number] =========PORTABLE CHEST 1 VIEW 11/06/2017 10:37 AM [...] hilum. Electronically signed by:Elizabeth Serrano. Transcribed by: [email or web address], User Resident: Electronically Signed by: ELIZABETH SERRANO @ 11/06/2017 11:37 AM Normal [facility] Comment on above: Order Comment: No: D o not add to previous draw TROPONIN-Ion 11-06-2017 Troponin I.cardiac mass conc 0.01 ng/mL Normal 0.00-0.04 [facility] Comment on above: Result Comment: REFE RENCE RANGES: 0.00 - 0.04 ng/ml NORMAL 0.05 - 0.50 ng/ml INDETERMINATE > 0.50 ng/ml CONSISTENT WITH AN M.I. Performed By: #### 0 0121 ####[facility] [place] [address], [facility] URINALYSIS REFLEXon 11-07-19 18 APPEARANCE CLEAR Normal CLEAR [facility] Comment on above: Order Comment: No: D o not add to previous draw Performed By: #### 0 0121 ####[facility] [facility] [place] [address], [facility] BILIRUBIN Negative Normal NEGATIVE [facility] Comment on above: Order Comment: No: D o not add to previous draw Performed By: #### 0 0121 ####[facility] [facility] [place] [address], [facility] BLOOD SMALL Abnormal NEGATIVE [facility] Comment on above: Order Comment: No: D o not add to previous draw Performed By: #### 0 0121 ####[facility] [facility] [place] [address], [facility] COLOR YELLOW Normal YELLOW [facility] Comment on above: Order Comment: No: D o not add to previous draw Performed By: #### 0 0121 ####[facility] [facility] [place] [address], [facility] EPIS OCC Normal FEW,OCC,NON E SEEN [facility] Comment on above: Order Comment: No: D o not add to previous draw Performed By: #### 0 0121 ####[facility] [facility] [place] [address], [facility] GLUCOSE Negative Normal NEGATIVE [facility] Comment on above: Order Comment: No: D o not add to previous draw Performed By: #### 0 0121 ####[facility] [facility] [place] [address], [facility] INR Coag RelTime (Bld) 6-10 Abnormal NONE SEEN [facility] Comment on above: Order Comment: No: D o not add to previous draw Performed By: #### 0 0121 ####[facility] [facility] [place] [address], [facility] KETONE Negative Normal NEGATIVE [facility] Comment on above: Order Comment: No: D o not add to previous draw Performed By: #### 0 0121 ####[facility] [facility] [place] [address], [facility] LEUK AVTAR Negative Normal NEGATIVE [facility] Comment on above: Order Comment: No: D o not add to previous draw Performed By: #### 0 0121 ####[facility] [facility].[address] MUCUS THREADS OCC Abnormal NONE SEEN [facility] Comment on above: Order Comment: No: D o not add to previous draw Performed By: #### 0 0121 ####[facility] [facility] [place] [address], [facility] NITRITE Negative Normal NEGATIVE [facility] Comment on above: Order Comment: No: D o not add to previous draw Performed By: #### 0 0121 ####[facility] PH 7.0 Normal 5.0-8.0 [facility] Comment on above: Order Comment: No: D o not add to previous draw Performed By: #### 0 0121 ####[facility] [facility].[address] Protein mass conc Negative Normal NEGATIVE [facility] Comment on above: Order Comment: No: D o not add to previous draw Performed By: #### 0 0121 ####[facility] [facility].[address] SPEC GRAV 1.012 Low 1.015-1.020 [facility] Comment on above: Order Comment: No: D o not add to previous draw Performed By: #### 0 0121 ####[facility] [facility].[address] WBC UA NONE SEEN Normal NONE SEEN [facility] Comment on above: Order Comment: No: D o not add to previous draw Performed By: #### 0 0121 ####[facility] [id number] Consultationon 11-05-2017 Consultation MR#: [id number] Rowland Date of Service: 11/04/2017 Room #: 4AB [id number] Birthdate: 1960 Referring Physician: CONSULTATIONCONSULTING SERVICE: Orthopedics.CHIEF [...] 11/04/2017/02:30 P/Elizabeth Martin M.D.Date Trans: 11/05/2017 01:56 A/mmoDN_JN:[id number] 4cc: Faotu Rdiley M.D. [address] [place] [address] Kristie Dee Christianisidro, DO [address] [facility] [address] [facility] [address] Normal [facility] POC GLUCOSE LABon 11-05-2017 Glucose mass conc 99 mg/dL Normal 70-100 [facility] Comment on above: Performed By: #### 5 0608, 33974 ####[facility] VANCOMYCIN TROUGHon 11-06-19 18 VANCOMYCIN TROU 14.8 mcg/mL Normal 5.0-20.0 [facility] Comment on above: Performed By: #### 5 0608, 54491 ####[facility] Operative Reporton 8 Operative Report MR#: [id number] [facility]ior Rowland Room #: 4AB [id number] Discharge Date: Birthdate: 1960 OPERATIVE REPORTDATE OF [...] bursitis, who underwent irrigation and debridement at [facility]. He was transferred here for further management [...] L of normal saline and Betadine. A vtwqkfnclm-ce-zon dressing was placed. The wound was then [...] 11/03/2017/06:52 P/Maude Espinal, MDDate Trans: 11/03/2017 11:16 P/mmoDN_JN:[id number] 2cc: Fatou Ridley M.D. [facility] [place] [address] Kristie Tamayo DO [address] [facility] [address] [place] [address] Normal [facility] *ANAEROBIC CULTUREon 018 *ANAEROBIC CULTURE Clinical Report: (D) Specimen/Source: FLUID/INTRAOP SPEC Collected: 11/03/2017 18:37 Status: Final Last Updated: 11/08/2017 06:25 (1) #2 Right Knee Synovial Fluid CULT RES (Final) No Anaerobes Isolated 5 Days Normal [facility] Comment on above: Order Comment: No: D o not add to previous draw Performed By: #### 5 8276, 91820 ####[place] [address] [address] *ANAEROBIC CULTURE Clinical Report: (D) Specimen/Source: TISSUE/INTRAOP SPEC Collected: 11/03/2017 18:35 Status: Final Last Updated: 11/08/2017 05:30 (1) #3 Right Knee Tissue ISO (Final) No Anaerobes Isolated Day 5 Normal [facility] Comment on above: Order Comment: No: D o not add to previous draw Performed By: #### 5 0608, 26839 ####[facility] *ANAEROBIC CULTURE Clinical Report: (D) Specimen/Source: SWAB/INTRAOP SPEC Collected: 11/03/2017 18:30 Status: Final Last Updated: 11/08/2017 05:30 (1) #1 Right Knee swab ISO (Final) No Anaerobes Isolated Day 5 Normal [facility] Comment on above: Order Comment: No: D o not add to previous draw Performed By: #### 5 0608, 46822 ####[facility] *BODY FLUID CULTUREon 2017 *BODY FLUID CULTURE Clinical Report: (D) Specimen/Source: FLUID/INTRAOP SPEC Collected: 11/03/2017 18:37 Status: Final Last Updated: 11/08/2017 07:01 (1) #2 Right Knee Synovial Fluid GRAM (Final) Rare Polys No Bacteria Seen CULT RES (Final) No Growth Day 5 Normal [facility] Comment on above: Order Comment: #2 Ri ght Knee Synovial Fluid Performed By: #### 3 7008 ####[facility] *FUNGAL CULTUREon 11-03-2017 *FUNGAL CULTURE Clinical Report: (D) Specimen/Source: FLUID/INTRAOP SPEC Collected: 11/03/2017 18:37 Status: Final Last Updated: 12/04/2017 13:45 (1) #2 Right Knee Synovial Fluid FS (Final) No Yeast or Fungal Elements Seen CULT RES (Final) Culture negative for fungus Normal [facility] Comment on above: Order Comment: #2 Ri ght Knee Synovial Fluid Performed By: #### 3 5337 ####[facility] *FUNGAL CULTURE Clinical Report: (D) Specimen/Source: TISSUE/INTRAOP SPEC Collected: 11/03/2017 18:35 Status: Final Last Updated: 12/04/2017 13:45 (1) #3 Right Knee Tissue FS (Final) No Yeast or Fungal Elements Seen CULT RES (Final) Culture negative for fungus Normal [facility] Comment on above: Order Comment: No: D o not add to previous draw Performed By: #### 5 0608, 87081 ####[facility] *TISSUE CULTUREon 11-03-2017 *TISSUE CULTURE Clinical Report: (D) Specimen/Source: TISSUE/INTRAOP SPEC Collected: 11/03/2017 18:35 Status: Final Last Updated: 11/06/2017 11:22 (1) #3 Right Knee Tissue GRAM (Final) Many Polys No Bacteria Seen ISO (Final) Staphylococcus aureus Isolated from broth culture Susceptibility To Follow Normal [facility] Comment on above: Order Comment: #3 Ri ght Knee Tissue Performed By: #### 3 0338 ####[facility] *WOUND CULTUREon 11-03-2017 *WOUND CULTURE Clinical [...] (Unreleased) No previously released data found. Normal [facility] Comment on above: Order Comment: #1 Ri ght Knee swab Performed By: #### 3 0343 ####[facility] C-Reactive Protein (HS)on Protein mass conc 74.31 mg/L Critically high 0.00-3.00 Th [facility] Comment on above: Result Comment: Resu lts confirmed ondilution. Relative Risk for Future Cardiovascular Event Low <1.00 Average 1.00 - 3.00 High >3.00 Performed By: #### P TT, PT ####[facility] F[address] [place] GRAM STAIN PRIM SOURCEon INR Coag RelTime (Bld) Final report Normal [facility] Comment on above: Performed By: #### P TT, PT ####[facility] Adsrqtsuxm7559 [address] [place] Result 1 Comment Normal [facility] Comment on above: Result Comment: No w elio blood cells seen. Performed By: #### P TT, PT ####[facility] Muoubmckrq3457 [address] D[place] Result 2 No organisms seen Normal [facility] Comment on above: Performed By: #### P TT, PT ####[facility] Umekuvjdyx64[address] [place] POC GLUCOSE LABon 11-03-2017 Glucose mass conc 86 mg/dL Normal 70-100 [facility] Comment on above: Performed By: #### 8 5499 ####[facility] CBC AUTO DIFFon 11-02-2017 Basophils Auto #/vol (Bld) 0.0 103/ul Normal 0.0-0.1 [facility] Comment on above: Performed By: #### P TT, PT ####[facility] [address] [place], [place] [address] D[place]ne Basophils/100 WBC Auto (Bld) 0.5 % Normal 0.2-2.0 [facility] Comment on above: Performed By: #### P TT, PT ####[facility] [address] [place], [place] [address]Gerken [place] Eosinophils Auto #/vol (Bld) 0.3 103/ul Normal 0.0-0.7 [facility] Comment on above: Performed By: #### P TT, PT ####[facility] [address] [place] [address] D[place]ne Eosinophils/100 WBC Auto (Bld) 3.8 % Normal 0.9-7.0 [facility] Comment on above: Performed By: #### P TT, PT ####[facility] [address] [place] [address] [place] Erythrocyte distribution width Auto Ratio (RBC) 13.4 % Normal 11.0-15.0 [facility] Comment on above: Performed By: #### P TT, PT ####[facility] [address] [place], [place] [address]Ger[place] Hematocrit Auto Volume Fraction (Bld) 32.4 % Critically low 42.0-54.0 [facility] Comment on above: Performed By: #### P TT, PT ####[facility] [address] [place] [address] D[place]ne Hemoglobin mass conc (Bld) 10.2 g/dL Critically low 14.0-18.0 [facility] Comment on above: Performed By: #### P TT, PT ####[facility] [address] [place] [id number] IG # 0.05 10e3/ul Critically high 0.00-0.03 [facility] Comment on above: Performed By: #### P TT, PT ####[facility] [address] [place], [place] [address]Gerken [place] IG % 0.6 % Critically high 0.0-0.[address] [facility] Comment on above: Performed By: #### P TT, PT ####[facility] Otwjmefizq9190 [address] [place] Lymphocytes Auto #/vol (Bld) 1.4 103/ul Normal 1.2-3.8 [facility] Comment on above: Performed By: #### P TT, PT ####[facility] [address] [place] [address] Dianne Lymphocytes/100 WBC Auto (Bld) 16.8 % Critically low 20.5-60.0 [facility] Comment on above: Performed By: #### P TT, PT ####[facility] [address] [place] [address] D[place]ne MANUAL DIFF REQ NO Normal [facility] Comment on above: Performed By: #### P TT, PT ####[facility] N[address]anycre[address] [place], [place] [address] MCH Auto Entitic mass (RBC) 28.1 pg Normal 25.9-34.0 [facility] Comment on above: Performed By: #### P TT, PT ####[facility] [address] [place], [place] [address]Gerken [place] MCHC Auto mass conc (RBC) 31.5 g/dL Normal 29.9-35.2 [facility] Comment on above: Performed By: #### P TT, PT ####[facility] [address] [place], [place] [address]Gerken [place] MCV Auto Entitic volume (RBC) 89.3 fL Normal 80.0-94.0 [facility] Comment on above: Performed By: #### P TT, PT ####[facility] [address] [place], [place] [address]Dunvvv D[place]ne Monocytes Auto #/vol (Bld) 0.5 103/ul Normal 0.3-0.8 [facility] Comment on above: Performed By: #### P TT, PT ####[facility] [address] [place] [id number] Monocytes/100 WBC Auto (Bld) 5.8 % Normal 1.7-12.0 [facility] Comment on above: Performed By: #### P TT, PT ####[facility] Y[address] [place], [place] [address]Gerken [place] Neutrophils Auto #/vol (Bld) 6.1 103/ul Normal 1.4-6.5 [facility] Comment on above: Performed By: #### P TT, PT ####[facility] [address]fi[address] [place], [place] [address]Gerken [place] Neutrophils/100 WBC Auto (Bld) 72.5 % Normal 43.0-75.0 [facility] Comment on above: Performed By: #### P TT, PT ####[facility] Beeveoescc[address] [place], [place] [address]Gerken [place] Platelet mean volume Auto Entitic volume (Bld) 9.7 fL Normal 9.5-13.5 [facility] Comment on above: Performed By: #### P TT, PT ####[facility] [address] [place], [place] [address]Gerken [place] Platelets Auto #/vol (Bld) 247 103/ul Normal 150-450 [facility] Comment on above: Performed By: #### P TT, PT ####[facility] [address]of[address]auwn[address] [place], [place] [address]Gerken [place] RBC Auto #/vol (Bld) 3.63 106/ul Critically low 4.70-6.10 [facility] Comment on above: Performed By: #### P TT, PT ####[facility] [address] [place], [place] [address]Gerken [place] WBC Auto #/vol (Bld) 8.4 103/ul Normal 4.0-11.0 [facility] Comment on above: Performed By: #### P TT, PT ####[facility] [address] [place], [place] [address]BlfacwMayur Dean CBC COMPLETE BLOOD COUNTon 0 11-02-2017 Erythrocyte distribution width Auto Ratio (RBC) 13.2 % Normal 11.5-15.0 [facility] Comment on above: Order Comment: No: D o not add to previous draw Performed By: #### 5 0608, 32168 ####[facility] [place] [address], [facility] Hematocrit Auto Volume Fraction (Bld) 32.9 % Low 39.0-50.0 [facility] Comment on above: Order Comment: No: D o not add to previous draw Performed By: #### 5 06, 53097 ####[facility] [facility] Hemoglobin mass conc (Bld) 10.4 g/dL Low 13.0-17.0 [facility] Comment on above: Order Comment: No: D o not add to previous draw Performed By: #### 5 06, 09411 ####[facility] [facility] [address], [facility] MCH Auto Entitic mass (RBC) 28.0 pg Normal 27.0-33.0 [facility] Comment on above: Order Comment: No: D o not add to previous draw Performed By: #### 5 06, 98246 ####[facility] [place] [address], [facility] MCHC Auto mass conc (RBC) 31.6 g/dL Low 32.0-35.0 [facility] Comment on above: Order Comment: No: D o not add to previous draw Performed By: #### 5 06, 88515 ####[facility] [place] [address], [facility] MCV Auto Entitic volume (RBC) 88.7 fL Normal 82.0-98.0 [facility] Comment on above: Order Comment: No: D o not add to previous draw Performed By: #### 5 0608, 93287 ####[facility] Nucleated RBC/100 WBC Ratio (Bld) 0 % Normal 0-0 [facility] Comment on above: Order Comment: No: D o not add to previous draw Performed By: #### 5 607, 82519 ####[facility] PLAT CNT 260 10*3/uL Normal 150-400 [facility] Comment on above: Order Comment: No: D o not add to previous draw Performed By: #### 5 08, 47605 ####[facility] RBC Auto #/vol (Bld) 3.71 10*6/uL Low 4.20-5.70 [facility] Comment on above: Order Comment: No: D o not add to previous draw Performed By: #### 5 08, 65819 ####[facility] WBC Auto #/vol (Bld) 7.99 10*3/uL Normal 4.00-10.60 [facility] Comment on above: Order Comment: No: D o not add to previous draw Performed By: #### 5 0608, 59448 ####[facility] COMP METABOLIC PANELon 11-02 Albumin mass conc 3.2 g/dL Low 3.5-5.7 [facility] Comment on above: Order Comment: No: D o not add to previous draw Performed By: #### 0 0121 ####[facility] [place] [address], [facility] ALKALINE PHOSPH 48 IU/L Normal 34-104 [facility] Comment on above: Order Comment: No: D o not add to previous draw Performed By: #### 0 0121 ####[facility] [place] [address], [place] ALT enzyme act/vol 10 U/L Normal 7-52 [facility] Comment on above: Order Comment: No: D o not add to previous draw Performed By: #### 0 0121 ####[facility] [place] [address], [place] AST enzyme act/vol 17 U/L Normal 13-39 [facility] Comment on above: Order Comment: No: D o not add to previous draw Performed By: #### 0 0121 ####[facility] [place] [address], [facility] Bilirubin mass conc 0.5 mg/dL Normal 0.3-1.0 [facility] Comment on above: Order Comment: No: D o not add to previous draw Performed By: #### 0 0121 ####[facility] [place] [address], [facility] Calcium mass conc 9.0 mg/dL Normal 8.6-10.3 [facility] Comment on above: Order Comment: No: D o not add to previous draw Performed By: #### 0 0121 ####[facility] [place] [address], [place] Chloride molar conc 100 mmol/L Normal 98-107 [facility] Comment on above: Order Comment: No: D o not add to previous draw Performed By: #### 0 0121 ####[facility] [place] [address], [place] CO2 molar conc 31 mmol/L Normal 21-31 [facility] Comment on above: Order Comment: No: D o not add to previous draw Performed By: #### 0 0121 ####[facility] [place] [address], [facility] Creatinine mass conc 0.84 mg/dL Normal 0.70-1.30 [facility] Comment on above: Order Comment: No: D o not add to previous draw Performed By: #### 0 0121 ####[facility] [place] [address], [facility] GFR/1.73 sq M predicted among blacks MDRD vol rate/area (S/P/Bld) mL/min/{1.73_m2} Normal >60 [facility] Comment on above: Order Comment: No: D o not add to previous draw Performed By: #### 0 0121 ####[facility] [facility] [address], [facility] GFR/1.73 sq M predicted among non-blacks MDRD vol rate/area (S/P/Bld) mL/min/{1.73_m2} Normal >60 [facility] Comment on above: Order Comment: No: D o not add to previous draw Performed By: #### 0 0121 ####[facility] [facility] [address], [facility] Glucose mass conc 93 mg/dL Normal 70-100 [facility] Comment on above: Order Comment: No: D o not add to previous draw Performed By: #### 0 0121 ####[facility] [place] [address], [facility] Potassium molar conc 3.9 mmol/L Normal 3.5-5.1 [facility] Comment on above: Order Comment: No: D o not add to previous draw Performed By: #### 0 0121 ####[facility] [place] [address], [facility] Protein mass conc 7.1 g/dL Normal 6.0-8.3 [facility] Comment on above: Order Comment: No: D o not add to previous draw Performed By: #### 0 0121 ####[facility] [facility].[address] Sodium molar conc 138 mmol/L Normal 136-145 [facility] Comment on above: Order Comment: No: D o not add to previous draw Performed By: #### 0 0121 ####[facility] [facility].[address] Urea nitrogen mass conc 12 mg/dL Normal 7-25 [facility] Comment on above: Order Comment: No: D o not add to previous draw Performed By: #### 0 0121 ####[facility] [facility].[address] CRPon 11-02-2017 CRP mass conc 6.4 mg/dL Critically high <=1.0 [facility] Comment on above: Performed By: #### P TT, PT ####[facility] [address] [place], [place] [address]Kzcign Dianne PROTHROMBIN TIMEon 8 INR Coag RelTime (PPP) 1.14 {INR} Normal 0.91-1.16 [facility] Comment on above: Order Comment: No: [...] OF ACTION, CLINICALEFFECTIVENESS, AND OPTIMAL THERAPEUTIC RANGE. [id number]. Performed By: #### 5 6101 ####[facility] [place] [address], [facility] Prothrombin time (PT) Coag time (PPP) 14.6 s Normal 12.3-14.8 [facility] Comment on above: Order Comment: No: D o not add to previous draw Result Comment: ALL RESULTS MUST BE INTERPRETED WITH RESPECT TO BLOOD DRAWING ARTIFACTOR DILUTION ERROR OF ANTICOAGULANT AT THE TIME OF SAMPLING. Performed By: #### 5 6101 ####[facility] [place] [address], [facility] CENTER SED RATE WESTERGRENon 2017 SED RATE 108 mm/hr Critically high <=[address] [facility] Comment on above: Performed By: #### P TT, PT ####[facility] [address] [place], [place] [address]Tymrao Dianne SEDRH METHOD AND NORMAL CH NHUNG 07/06/15. RESULTS ARE NOT AFFECTED BY HEMATOCRIT. Normal [facility] Comment on above: Performed By: #### P TT, PT ####[facility] Vlrzymkxcy[address] [place], [place] [address]Ukmzud Dianne SEDIMENTATION RATEon 018 SED RATE 93 mm/hr High 0-10 [facility] Comment on above: Order Comment: No: D o not add to previous draw Performed By: #### 5 [id number], [id number] ####[facility] [place] [address], [facility] TYPE AND SCREENon 11-02-2017 ABO INTERPRETATION O Normal [facility] Comment on above: Performed By: #### 6 [id number] ####[facility] [place] [address], [facility] ANTIBODY SCREEN Negative Normal [facility] Comment on above: Performed By: #### 6 [id number] ####[facility] RH INTERPRETATION Positive Normal [facility] Comment on above: Performed By: #### 6 [id number] ####[facility] [place] [address], [facility] CBC AUTO DIFFon 11-01-2017 Basophils Auto #/vol (Bld) 0.1 103/ul Normal 0.0-0.1 [facility] Comment on above: Performed By: #### P TT, PT ####[facility] [address] [place] [address] Dianne Basophils/100 WBC Auto (Bld) 0.5 % Normal 0.2-2.0 [facility] Comment on above: Performed By: #### P TT, PT ####[facility] [address] [place] [address] Dianne Eosinophils Auto #/vol (Bld) 0.3 103/ul Normal 0.0-0.7 [facility] Comment on above: Performed By: #### P TT, PT ####[facility] [address] [place] [address] Dianne Eosinophils/100 WBC Auto (Bld) 3.2 % Normal 0.9-7.0 [facility] Comment on above: Performed By: #### P TT, PT ####[facility] [address] [place] [address] Dianne Erythrocyte distribution width Auto Ratio (RBC) 13.4 % Normal 11.0-15.0 [facility] Comment on above: Performed By: #### P TT, PT ####[facility] [address]cl[address] [place] [address] Dianne Hematocrit Auto Volume Fraction (Bld) 33.3 % Critically low 42.0-54.0 [facility] Comment on above: Performed By: #### P TT, PT ####[facility] [address] [place] [address] Dianne Hemoglobin mass conc (Bld) 10.3 g/dL Critically low 14.0-18.0 [facility] Comment on above: Performed By: #### P TT, PT ####[facility] [address] [place] [address] Dianne IG # 0.06 10e3/ul Critically high 0.00-0.03 [facility] Comment on above: Performed By: #### P TT, PT ####[facility] [address] [place] [address] Dianne IG % 0.6 % Critically high 0.0-0.[address] [facility] Comment on above: Performed By: #### P TT, PT ####[facility] [address] [place] [address] Dianne Lymphocytes Auto #/vol (Bld) 1.6 103/ul Normal 1.2-3.8 [facility] Comment on above: Performed By: #### P TT, PT ####[facility] [address] [place] [address] Dianne Lymphocytes/100 WBC Auto (Bld) 16.4 % Critically low 20.5-60.0 [facility] Comment on above: Performed By: #### P TT, PT ####[facility] [address] [place] [address] Dianne MANUAL DIFF REQ NO Normal [facility] Comment on above: Performed By: #### P TT, PT ####[facility] Ivtimd[address] [place] [address] Dianne MCH Auto Entitic mass (RBC) 27.5 pg Normal 25.9-34.0 [facility] Comment on above: Performed By: #### P TT, PT ####[facility] Vdykh[address]usu[address] [place] [address] Dianne MCHC Auto mass conc (RBC) 30.9 g/dL Normal 29.9-35.2 [facility] Comment on above: Performed By: #### P TT, PT ####[facility] [address] [place] [id number] Dianne MCV Auto Entitic volume (RBC) 88.8 fL Normal 80.0-94.0 [facility] Comment on above: Performed By: #### P TT, PT ####[facility] [address] [place] [id number] Dianne Monocytes Auto #/vol (Bld) 0.7 103/ul Normal 0.3-0.8 [facility] Comment on above: Performed By: #### P TT, PT ####[facility] [address] [place] [id number] Dianne Monocytes/100 WBC Auto (Bld) 6.8 % Normal 1.7-12.0 [facility] Comment on above: Performed By: #### P TT, PT ####[facility] [address]rs[address] [place] [address]Kabngy Dianne Neutrophils Auto #/vol (Bld) 7.0 103/ul Critically high 1.4-6.5 [facility] Comment on above: Performed By: #### P TT, PT ####[facility] [address] [place] [id number] Dianne Neutrophils/100 WBC Auto (Bld) 72.5 % Normal 43.0-75.0 [facility] Comment on above: Performed By: #### P TT, PT ####[facility] U[address]se[address] [place] [id number] Dianne Platelet mean volume Auto Entitic volume (Bld) 9.6 fL Normal 9.5-13.5 [facility] Comment on above: Performed By: #### P TT, PT ####[facility] Nyhtzos[address] [place] [id number] Dianne Platelets Auto #/vol (Bld) 231 103/ul Normal 150-450 [facility] Comment on above: Performed By: #### P TT, PT ####[facility] [address] [place] [id number] Dianne RBC Auto #/vol (Bld) 3.75 106/ul Critically low 4.70-6.10 [facility] Comment on above: Performed By: #### P TT, PT ####[facility] [address] [place] [address] Dianne WBC Auto #/vol (Bld) 9.6 103/ul Normal 4.0-11.0 [facility] Comment on above: Performed By: #### P TT, PT ####[facility] [address] [place] [address] Dianne CRPon 11-01-2017 CRP mass conc 7.6 mg/dL Critically high <=1.[address] [facility] Comment on above: Performed By: #### P TT, PT ####[facility] [address] [place] [address] Dianne SED RATE WESTERGRENon 2017 SED RATE 75 mm/hr Critically high <=[address] [facility] Comment on above: Performed By: #### P TT, PT ####[facility] [address] [place] [address] Dianne SEDRH METHOD AND NORMAL CH NHUNG 07/06/15. RESULTS ARE NOT AFFECTED BY HEMATOCRIT. Normal [facility] Comment on above: Performed By: #### P TT, PT ####[facility] [address] [place] [address] Dianne CBC AUTO DIFFon 10-31-2017 Basophils Auto #/vol (Bld) 0.0 103/ul Normal 0.0-0.1 [facility] Comment on above: Performed By: #### C BC ####[facility] [address]so[address] [place] [address] Dianne Basophils/100 WBC Auto (Bld) 0.4 % Normal 0.2-2.0 [facility] Comment on above: Performed By: #### C BC ####[facility] [address] [place] [address] Dianne Eosinophils Auto #/vol (Bld) 0.2 103/ul Normal 0.0-0.7 [facility] Comment on above: Performed By: #### C BC ####[facility] [address]37[address] [place], [place] [address]Ghnxnc Dianne Eosinophils/100 WBC Auto (Bld) 2.2 % Normal 0.9-7.0 [facility] Comment on above: Performed By: #### C BC ####[facility] [address] [place] [id number] Dianne Erythrocyte distribution width Auto Ratio (RBC) 13.4 % Normal 11.0-15.0 [facility] Comment on above: Performed By: #### C BC ####[facility] [address]ft[address] [place] [id number] Dianne Hematocrit Auto Volume Fraction (Bld) 33.7 % Critically low 42.0-54.0 [facility] Comment on above: Performed By: #### C BC ####[facility] [address] [place], [place] [id number] Dianne Hemoglobin mass conc (Bld) 10.7 g/dL Critically low 14.0-18.0 [facility] Comment on above: Performed By: #### C BC ####[facility] [address]fb[address] [place], [place] [address]Gerken Dianne IG # 0.07 10e3/ul Critically high 0.00-0.03 [facility] Comment on above: Performed By: #### C BC ####[facility] [address]mc[address]cl[address] [place], [place] [address]Gerken Dianne IG % 0.7 % Critically high 0.0-0.[address] [facility] Comment on above: Performed By: #### C BC ####[facility] [address]vwnlux[address] [place] [id number] Dianne Lymphocytes Auto #/vol (Bld) 1.4 103/ul Normal 1.2-3.8 [facility] Comment on above: Performed By: #### C BC ####[facility] Vgtsmoolky[address] [place], [place] [address]Gerken Dianne Lymphocytes/100 WBC Auto (Bld) 13.9 % Critically low 20.5-60.0 [facility] Comment on above: Performed By: #### C BC ####[facility] [address]0476 [place], [place] [address]Rwtobb Dianne MANUAL DIFF REQ NO Normal [facility] Comment on above: Performed By: #### C BC ####[facility] Ujxe[address]ajdq[address] [place] [id number] Dianne MCH Auto Entitic mass (RBC) 28.2 pg Normal 25.9-34.0 [facility] Comment on above: Performed By: #### C BC ####[facility] Saxxyqxtcl[address] [place], [place] [address]Gerken Dianne MCHC Auto mass conc (RBC) 31.8 g/dL Normal 29.9-35.2 [facility] Comment on above: Performed By: #### C BC ####[facility] K[address]azt[address] [place], [place] [address]Gerken Dianne MCV Auto Entitic volume (RBC) 88.9 fL Normal 80.0-94.0 [facility] Comment on above: Performed By: #### C BC ####[facility] Csmuyrckij[address] [place], [place] [address]Gerken Dianne Monocytes Auto #/vol (Bld) 0.6 103/ul Normal 0.3-0.8 [facility] Comment on above: Performed By: #### C BC ####[facility] F[address]vecybvqa[address] [place], [place] [address]Gerken Dianne Monocytes/100 WBC Auto (Bld) 5.8 % Normal 1.7-12.0 [facility] Comment on above: Performed By: #### C BC ####[facility] Raofkfscvr[address] [place], [place] [address]Gerken Dianne Neutrophils Auto #/vol (Bld) 7.9 103/ul Critically high 1.4-6.5 [facility] Comment on above: Performed By: #### C BC ####[facility] Y[address]lk[address] [place], [place] [address]Gerken Dianne Neutrophils/100 WBC Auto (Bld) 77.0 % Critically high 43.0-75.0 [facility] Comment on above: Performed By: #### C BC ####[facility] Zxxasxrvcv[address] Dianne Platelet mean volume Auto Entitic volume (Bld) 9.7 fL Normal 9.5-13.5 [facility] Comment on above: Performed By: #### C BC ####[facility] [address] [place] [address] Dianne Platelets Auto #/vol (Bld) 227 103/ul Normal 150-450 [facility] Comment on above: Performed By: #### C BC ####[facility] [address]ft[address] [place] [address] Dianne RBC Auto #/vol (Bld) 3.79 106/ul Critically low 4.70-6.10 [facility] Comment on above: Performed By: #### C BC ####[facility] [address]pfx[address] [place] [address] Dianne WBC Auto #/vol (Bld) 10.3 103/ul Normal 4.0-11.0 [facility] Comment on above: Performed By: #### C BC ####[facility] [address]slixaenyu[address] [place] [address] Dianne CRPon 10-31-2017 CRP mass conc 7.4 mg/dL Critically high <=1.0 [facility] Comment on above: Performed By: #### C RP ####[facility] [address]fpmiboj[address] [place] [address] Dianne SED RATE WESTERGRENon 2017 SED RATE 96 mm/hr Critically high <=[address] [facility] Comment on above: Performed By: #### S EDR ####[facility] [address]herzus[address] [place] [address] Dianne SEDRH METHOD AND NORMAL CH NHUNG 07/06/15. RESULTS ARE NOT AFFECTED BY HEMATOCRIT. Normal [facility] Comment on above: Performed By: #### S EDR ####[facility] [address] [place] [address] Dianne VANCOMYCIN TROUGHon 11-01-19 18 VANCOMYCIN TROUGH 11.3 ug/ml Normal 5.0-20.0 [facility] Comment on above: Performed By: #### V ANCT ####[facility] [address] [place] [id number] Dianne CBC AUTO DIFFon 10-30-2017 Basophils Auto #/vol (Bld) 0.1 103/ul Normal 0.0-0.1 [facility] Comment on above: Performed By: #### C BC ####[facility] Ayjcso[address]fr[address] [place], [place] [address]Gerken Dianne Basophils/100 WBC Auto (Bld) 0.5 % Normal 0.2-2.0 [facility] Comment on above: Performed By: #### C BC ####[facility] Zxkffevvnu[address] [place], [place] [address]Gerken Dianne Eosinophils Auto #/vol (Bld) 0.2 103/ul Normal 0.0-0.7 [facility] Comment on above: Performed By: #### C BC ####[facility] Bbedfkelac[address] [place], [place] [address]Gerken Dianne Eosinophils/100 WBC Auto (Bld) 1.5 % Normal 0.9-7.0 [facility] Comment on above: Performed By: #### C BC ####[facility] Mrt[address]xecmu[address] [place], [place] [address]Gerken Dianne Erythrocyte distribution width Auto Ratio (RBC) 13.6 % Normal 11.0-15.0 [facility] Comment on above: Performed By: #### C BC ####[facility] Orwfdismar[address] [place], [place] [address]Gerken Dianne Hematocrit Auto Volume Fraction (Bld) 37.4 % Critically low 42.0-54.0 [facility] Comment on above: Performed By: #### C BC ####[facility] [address]dtlmsbmbd[address] [place], [place] [address]Gerken Dianne Hemoglobin mass conc (Bld) 11.5 g/dL Critically low 14.0-18.0 [facility] Comment on above: Performed By: #### C BC ####[facility] C[address]yepisixg6456 [place], [place] [address]Aqeivl Dianne IG # 0.09 10e3/ul Critically high 0.00-0.03 [facility] Comment on above: Performed By: #### C BC ####[facility] Phfvatacos7475 [place], [place] [address]Qwnbaa Dianne IG % 0.9 % Critically high 0.0-0.[address] [facility] Comment on above: Performed By: #### C BC ####[facility] [address]86[address] [place] [id number] Dianne Lymphocytes Auto #/vol (Bld) 1.8 103/ul Normal 1.2-3.8 [facility] Comment on above: Performed By: #### C BC ####[facility] [address]rys[address]osx[address] [place] [address] Dianne Lymphocytes/100 WBC Auto (Bld) 18.1 % Critically low 20.5-60.0 [facility] Comment on above: Performed By: #### C BC ####[facility] Txblesibte[address] [place], [place] [address]Gerken Dianne MANUAL DIFF REQ NO Normal [facility] Comment on above: Performed By: #### C BC ####[facility] R[address]zaufopi[address] [place], [place] [address]Gerken Dianne MCH Auto Entitic mass (RBC) 27.8 pg Normal 25.9-34.0 [facility] Comment on above: Performed By: #### C BC ####[facility] Xxiavklrkx[address] [place] [address] Dianne MCHC Auto mass conc (RBC) 30.7 g/dL Normal 29.9-35.2 [facility] Comment on above: Performed By: #### C BC ####[facility] [address]qu[address] [place] [address] Dianne MCV Auto Entitic volume (RBC) 90.3 fL Normal 80.0-94.0 [facility] Comment on above: Performed By: #### C BC ####[facility] [address]ir[address] [place] [id number] Dianne Monocytes Auto #/vol (Bld) 0.7 103/ul Normal 0.3-0.8 [facility] Comment on above: Performed By: #### C BC ####[facility] [address]zhu[address] [place] [address]Tfwwap Dianne Monocytes/100 WBC Auto (Bld) 6.6 % Normal 1.7-12.0 [facility] Comment on above: Performed By: #### C BC ####[facility] [address] [place] [address]Cwdtwa Dianne Neutrophils Auto #/vol (Bld) 7.3 103/ul Critically high 1.4-6.5 [facility] Comment on above: Performed By: #### C BC ####[facility] [address] [place] [address]Kcisff Dianne Neutrophils/100 WBC Auto (Bld) 72.4 % Normal 43.0-75.0 [facility] Comment on above: Performed By: #### C BC ####[facility] [address]fpx[address] [place] [address] 78[address]Steifr Dianne Platelet mean volume Auto Entitic volume (Bld) 9.3 fL Critically low 9.5-13.5 [facility] Comment on above: Performed By: #### C BC ####[facility] [address]qg[address] [place] [address]Kexcwe Dianne Platelets Auto #/vol (Bld) 263 103/ul Normal 150-450 [facility] Comment on above: Performed By: #### C BC ####[facility] [address]upqrqjxd[address] [place] [address]Unbqhe Dianne RBC Auto #/vol (Bld) 4.14 106/ul Critically low 4.70-6.10 [facility] Comment on above: Performed By: #### C BC ####[facility] [address] [place] [address]Tlgwza Dianne WBC Auto #/vol (Bld) 10.1 103/ul Normal 4.0-11.0 [facility] Comment on above: Performed By: #### C BC ####[facility] [address] [place] [id number] Dianne Basophils Auto #/vol (Bld) 0.0 103/ul Normal 0.0-0.1 [facility] Comment on above: Performed By: #### C BC ####[facility] [address]ep[address]zbj[address] [place] [address] Dianne Basophils/100 WBC Auto (Bld) 0.4 % Normal 0.2-2.0 [facility] Comment on above: Performed By: #### C BC ####[facility] [address]tw[address] [place] [address] Dianne Eosinophils Auto #/vol (Bld) 0.2 103/ul Normal 0.0-0.7 [facility] Comment on above: Performed By: #### C BC ####[facility] [address]jmuks[address] [place] [address] Dianne Eosinophils/100 WBC Auto (Bld) 1.5 % Normal 0.9-7.0 [facility] Comment on above: Performed By: #### C BC ####[facility] I[address]ofdmc[address] [place] [address] Dianne Erythrocyte distribution width Auto Ratio (RBC) 13.6 % Normal 11.0-15.0 [facility] Comment on above: Performed By: #### C BC ####[facility] [address]yr[address]aphh[address] [place] [address] Dianne Hematocrit Auto Volume Fraction (Bld) 37.2 % Critically low 42.0-54.0 [facility] Comment on above: Performed By: #### C BC ####[facility] [address]ftvcp[address] [place] [address] Dianne Hemoglobin mass conc (Bld) 11.7 g/dL Critically low 14.0-18.0 [facility] Comment on above: Performed By: #### C BC ####[facility] [address] [place] [address] Dianne IG # 0.08 10e3/ul Critically high 0.00-0.03 [facility] Comment on above: Performed By: #### C BC ####[facility] Cexgmfnijc7574 [address] Dianne IG % 0.8 % Critically high 0.0-0.5 [facility] Comment on above: Performed By: #### C BC ####[facility] [address]fkt[address] [place] [address] Dianne Lymphocytes Auto #/vol (Bld) 1.7 103/ul Normal 1.2-3.8 [facility] Comment on above: Performed By: #### C BC ####[facility] [address]xwutnm[address] [place] [address] Dianne Lymphocytes/100 WBC Auto (Bld) 17.0 % Critically low 20.5-60.0 [facility] Comment on above: Performed By: #### C BC ####[facility] [address]lar[address] [place] [address] Dianne MANUAL DIFF REQ NO Normal [facility] Comment on above: Performed By: #### C BC ####[facility] [address]fsh[address]lw[address] [place] [address] Dianne MCH Auto Entitic mass (RBC) 28.2 pg Normal 25.9-34.0 [facility] Comment on above: Performed By: #### C BC ####[facility] [address]tsz[address] [place] [address] Dianne MCHC Auto mass conc (RBC) 31.5 g/dL Normal 29.9-35.2 [facility] Comment on above: Performed By: #### C BC ####[facility] [address]qs[address] [place] [address] Dianne MCV Auto Entitic volume (RBC) 89.6 fL Normal 80.0-94.0 [facility] Comment on above: Performed By: #### C BC ####[facility] [address]ici[address] [place] [address] Dianne Monocytes Auto #/vol (Bld) 0.7 103/ul Normal 0.3-0.8 [facility] Comment on above: Performed By: #### C BC ####[facility] [address] [place] [address]Gerken Dianne Monocytes/100 WBC Auto (Bld) 7.0 % Normal 1.7-12.0 [facility] Comment on above: Performed By: #### C BC ####[facility] [address]ht[address] [place] [address] Dianne Neutrophils Auto #/vol (Bld) 7.5 103/ul Critically high 1.4-6.5 [facility] Comment on above: Performed By: #### C BC ####[facility] [address] [place] [address] Dianne Neutrophils/100 WBC Auto (Bld) 73.3 % Normal 43.0-75.0 [facility] Comment on above: Performed By: #### C BC ####[facility] [address]zbbipwo[address] [place] [address] Dianne Platelet mean volume Auto Entitic volume (Bld) 9.9 fL Normal 9.5-13.5 [facility] Comment on above: Performed By: #### C BC ####[facility] [address]ms[address]wt[address] [place] [address] Dianne Platelets Auto #/vol (Bld) 288 103/ul Normal 150-450 [facility] Comment on above: Performed By: #### C BC ####[facility] [address] [place], [place] [address]Gerken Dianne RBC Auto #/vol (Bld) 4.15 106/ul Critically low 4.70-6.10 [facility] Comment on above: Performed By: #### C BC ####[facility] [address]xma[address] [place] [address] Dianne WBC Auto #/vol (Bld) 10.2 103/ul Normal 4.0-11.0 [facility] Comment on above: Performed By: #### C BC ####[facility] [address]zqu[address] [place] [address] Dianne CRPon 06-01-2018 CRP mass conc 6.9 mg/dL Critically high <=1.[address] [facility] Comment on above: Performed By: #### C RP ####[facility] [address] [place] [id number] Dean SED RATE WESTERGRENon 2017 SED RATE 94 mm/hr Critically high <=[address] [facility] Comment on above: Performed By: #### S EDR ####[facility] [address] [place] [address] Dianne SEDRH METHOD AND NORMAL CH NHUNG 07/06/15. RESULTS ARE NOT AFFECTED BY HEMATOCRIT. Normal [facility] Comment on above: Performed By: #### S EDR ####[facility] [address] [place], [place] [address]Gerken Dianne CULTURE ANAEROBICon 10-30-19 18 CULTURE ANAEROBIC Culture Observations : FINAL, SCANNED RESULTS TO FOLLOW IN [facility] Culture Observations: CALLED/FAXED TO DR TAMAYO/MENDOZA 11/03/2017 1030 [facility] Comment on above: Performed By: #### P TT, PT ####[facility] [id number] [place] [address] Dianne CULTURE OTHERon 10-29-2017 CULTURE OTHER Culture Observations : Prelim results given to Dr Tamayo 11-01-17 @1310 -[facility] Culture Observations: Final, scanned results to follow in [facility] Comment on above: Performed By: #### P TT, PT ####[facility] [address] [place], [place] [address]Mayru Dean PROTIMEon 10-28-2017 INR Coag RelTime (Bld) SEE BELOW Normal [facility] Comment on above: Result Comment: MOOKIE RED INR: 2.0 - 3.0 CONDITIONS NOT LISTED BELOW 2.5 - 3.5 FOR PROSTHETIC HEART VALVE REPLACEMENT 2.5 - 3.5 RECURRENT THROMBOSIS Performed By: #### P TT, PT ####[facility] [address] [place] [address] Dianne INR Coag RelTime (PPP) 1.10 {INR} Normal Th [facility] Comment on above: Performed By: #### P TT, PT ####[facility] [address] [place], [place] [address]AduaexMayur Dean Prothrombin time (PT) Coag time (PPP) 11.3 s Normal 9.0-11.6 [facility] Comment on above: Performed By: #### P TT, PT ####[facility] [address] [place], [place] [address]ImoowxMayur Dean PT NORMAL PLEASE NOTE: NORMAL RANGE CHANGE 02-16-2014 DUE TO REAGENT LOT CHANGE Normal [facility] Comment on above: Performed By: #### P TT, PT ####[facility] [address] [place], [place] [address]TyxcycMayur Dean PTTon 10-28-2017 aPTT Coag time (Bld) 30.1 s Normal 22.3-36.2 [facility] Comment on above: Performed By: #### P TT, PT ####[facility] [address] [place] [address]BlcswxMayur Dean aPTT Coag time (Bld) PLEASE NOTE: NORMAL RANGE CHANGE 04-25-2015 DUE TO REAGENT LOT CHANGE Normal [facility] Comment on above: Performed By: #### P TT, PT ####[facility] [address] [place], [place] [address]ZajjtaMayur Dean Vital Signs Date Time Vital Sign Value Performing Clinician Facility 07-19-2024 14:53-0500 Body temperature 97.3 [degF] [facility] 07-19-2024 14:53-0500 Body weight 181.[address] [facility] 07-19-2024 14:53-0500 Diastolic blood pressure 94 mm[Hg] [facility] 07-19-2024 14:53-0500 Heart rate 76 /min [facility] 07-19-2024 14:53-0500 Respiratory rate 24 /min [facility] 07-19-2024 14:53-0500 Systolic blood pressure 172 mm[Hg] [facility] 07-11-2024 15:26-0500 Body height 182.88 cm Bakari White DO Work Phone: [facility] 07-11-2024 15:26-0500 Body mass index (BMI) [Ratio] 54.5 kg/m2 Bakari Branchi DO Work Phone: [facility] 07-11-2024 15:26-0500 Body temperature 101.2 [degF] Bakari Branchi DO Work Phone: [facility] 07-11-2024 15:26-0500 Body weight 182.34 kg Bakari Branchi DO Work Phone: [facility] 07-11-2024 15:26-0500 Diastolic blood pressure 83 mm[Hg] Bakari Branchi DO Work Phone: [facility] 07-11-2024 15:26-0500 Heart rate 93 /min Bakari Branchi DO Work Phone: [facility] 07-11-2024 15:26-0500 Respiratory rate 18 /min Bakari Branchi DO Work Phone: [facility] 07-11-2024 15:26-0500 SaO2% (BldA) [Mass fraction] 98 % Bakari Branchi DO Work Phone: [facility] 07-11-2024 15:26-0500 Systolic blood pressure 138 mm[Hg] Bakari Branchi DO Work Phone: [facility] 05-27-2024 08:38-0500 Body height 182.88 cm Bakari Branchi DO Work Phone: [facility] 05-27-2024 08:38-0500 Body mass index (BMI) [Ratio] 54.1 kg/m2 Bakari Branchi DO Work Phone: [facility] 05-27-2024 08:38-0500 Body weight 180.98 kg Bakari Branchi DO Work Phone: [facility] 05-27-2024 08:38-0500 Diastolic blood pressure 92 mm[Hg] Bakari Branchi DO Work Phone: [facility] 05-27-2024 08:38-0500 Heart rate 70 /min Bakari Branchi DO Work Phone: [facility] 05-27-2024 08:38-0500 SaO2% (BldA) [Mass fraction] 96 % Bakari Branchi DO Work Phone: [facility] 05-27-2024 08:38-0500 Systolic blood pressure 158 mm[Hg] Bakari Branchi DO Work Phone: [facility] 04-19-2024 14:19-0500 Diastolic blood pressure 94 mm[Hg] Bakari Branchi DO Work Phone: [facility] 04-19-2024 14:19-0500 Systolic blood pressure 162 mm[Hg] Bakari Branchi DO Work Phone: [facility] 04-19-2024 14:03-0500 Body height 182.88 cm Bakari Branchi DO Work Phone: [facility] 04-19-2024 14:03-0500 Body mass index (BMI) [Ratio] 53 kg/m2 Bakari Branchi DO Work Phone: [facility] 04-19-2024 14:03-0500 Body weight 177.35 kg Bakari Branchi DO Work Phone: [facility] 04-19-2024 14:03-0500 Heart rate 80 /min Bakari Branchi DO Work Phone: [facility] 04-19-2024 14:03-0500 Respiratory rate 20 /min Bakari Branchi DO Work Phone: [facility] 04-19-2024 14:03-0500 SaO2% (BldA) [Mass fraction] 99 % Bakari White DO Work Phone: [facility] 04-13-2024 12:26-0500 Body height 182.9 cm Darlene Brito PA Work Phone: [facility] 04-13-2024 12:26-0500 Diastolic blood pressure 84 mm[Hg] Darlene Brito PA Work Phone: [facility] 04-13-2024 12:26-0500 Heart rate 88 /min Darlene Brito PA Work Phone: [facility] 04-13-2024 12:26-0500 Respiratory rate 16 /min Darlene Brito PA Work Phone: [facility] 04-13-2024 12:26-0500 SaO2% (BldA) [Mass fraction] 96 % Darlene Brito PA Work Phone: [facility] 04-13-2024 12:26-0500 Systolic blood pressure 142 mm[Hg] Darlene Brito PA Work Phone: [facility] 03-02-2024 08:43-0400 Body height 182.9 cm Mario Kumargel INDUSTRIAL MAINTENANCE ELECTRICIAN Work Phone: [facility] 03-02-2024 08:43-0400 Body mass index (BMI) [Ratio] 53.16 kg/m2 Mario Judynagel INDUSTRIAL MAINTENANCE ELECTRICIAN Work Phone: [facility] 03-02-2024 08:43-0400 Body weight 177.81 kg Mario Judynagel INDUSTRIAL MAINTENANCE ELECTRICIAN Work Phone: [facility] 03-02-2024 08:43-0400 Diastolic blood pressure 88 mm[Hg] Mario Judynagel INDUSTRIAL MAINTENANCE ELECTRICIAN Work Phone: [facility] 03-02-2024 08:43-0400 Heart rate 73 /min Mario Judynagel INDUSTRIAL MAINTENANCE ELECTRICIAN Work Phone: [facility] 03-02-2024 08:43-0400 Systolic blood pressure 153 mm[Hg] Mario Judynagel INDUSTRIAL MAINTENANCE ELECTRICIAN Work Phone: [facility] 05-19-2023 14:00-0500 Body height 182.88 cm Bakari White Other [employer] Other 05-19-2023 14:00-0500 Body mass index (BMI) [Ratio] 52.48 kg/m2 Bakari White Other [employer] Other 05-19-2023 14:00-0500 Body weight 175.54 kg Bakari White Other [employer] Other 05-19-2023 14:00-0500 Diastolic blood pressure 86 mm[Hg] Bakari White Other [employer] Other 05-19-2023 14:00-0500 Respiratory rate 18 /min Bakari White Other [employer] Other 05-19-2023 14:00-0500 SaO2% (BldA) [Mass fraction] 100 % Bakari White Other [employer] Other 05-19-2023 14:00-0500 Systolic blood pressure 130 mm[Hg] Bakari Wellsperfecto Other [employer] Other 02-24-2023 09:30-0400 Body height 182.88 cm Bakari Damonjeremíasmarkos Other [employer] Other 02-24-2023 09:30-0400 Body mass index (BMI) [Ratio] 50.99 kg/m2 Bakari Damonjeremíasmarkos Other [employer] Other 02-24-2023 09:30-0400 Body weight 170.55 kg Bakari White Other [employer] Other 02-24-2023 09:30-0400 Respiratory rate 18 /min Bakari White Other [employer] Other 02-24-2023 09:30-0400 SaO2% (BldA) [Mass fraction] 99 % Bakari White Other [employer] Other 11-21-2022 10:00-0400 Body height 182.88 cm Bakari White Other [employer] Other 11-21-2022 10:00-0400 Body mass index (BMI) [Ratio] 52.21 kg/m2 Bakari White Other [employer] Other 11-21-2022 10:00-0400 Body temperature 98.6 [degF] Bakari White Other [employer] Other 11-21-2022 10:00-0400 Body weight 174.64 kg Bakari White Other [employer] Other 11-21-2022 10:00-0400 Diastolic blood pressure 86 mm[Hg] Bakari White Other [employer] Other 11-21-2022 10:00-0400 Respiratory rate 20 /min Bakari White Other [employer] Other 11-21-2022 10:00-0400 SaO2% (BldA) [Mass fraction] 100 % Bakari White Other [employer] Other 11-21-2022 10:00-0400 Systolic blood pressure 130 mm[Hg] Bakari White Other [employer] Other 06-13-2022 17:54-0500 Respiratory rate 20 /min Ajay Galvan MD Work Phone: [employer] 06-13-2022 07:15-0500 Body temperature 96.8 [degF] Ajay Galvan MD Work Phone: [employer] 06-13-2022 07:15-0500 Diastolic blood pressure 82 mm[Hg] Ajay Galvan MD Work Phone: [employer] 06-13-2022 07:15-0500 Heart rate 71 /min Ajay Galvan MD Work Phone: [employer] 06-13-2022 07:15-0500 SaO2% (BldA) [Mass fraction] 96 % Ajay Galvan MD Work Phone: [employer] 06-13-2022 07:15-0500 Systolic blood pressure 125 mm[Hg] Ajay Galvan MD Work Phone: [employer] 06-13-2022 04:52-0500 Body mass index (BMI) [Ratio] 50.26 kg/m2 Ajay Galvan MD Work Phone: [employer] 06-13-2022 04:52-0500 Body weight 168.1 kg Ajay Galvan MD Work Phone: [employer] Comment on above: 1st weight obtained on floor 06-12-2022 09:00-0500 Body height 182.9 cm Ajay Galvan MD Work Phone: [employer] 06-09-2022 10:43-0500 Body height 182.9 cm Ajay Galvan MD Work Phone: [employer] 06-09-2022 10:43-0500 Body mass index (BMI) [Ratio] 49.91 kg/m2 Ajay Galvan MD Work Phone: [employer] 06-09-2022 10:43-0500 Body temperature 97.11 [degF] Ajay Galvan MD Work Phone: [employer] 06-09-2022 10:43-0500 Body weight 166.92 kg Ajay Galvan MD Work Phone: [employer] 06-09-2022 10:43-0500 Diastolic blood pressure 81 mm[Hg] Ajay Galvan MD Work Phone: [employer] 06-09-2022 10:43-0500 Heart rate 70 /min Ajay Galvan MD Work Phone: [employer] 06-09-2022 10:43-0500 Respiratory rate 18 /min Ajay Galvan MD Work Phone: [employer] 06-09-2022 10:43-0500 SaO2% (BldA) [Mass fraction] 97 % Ajay Galvan MD Work Phone: [employer] 06-09-2022 10:43-0500 Systolic blood pressure 178 mm[Hg] Ajay Galvan MD Work Phone: [employer] 05-19-2022 14:00-0500 Body height 182.88 cm Bakari White Other [employer] Other 05-19-2022 14:00-0500 Body mass index (BMI) [Ratio] 50.45 kg/m2 Bakari White Other [employer] Other 05-19-2022 14:00-0500 Body weight 168.74 kg Bakari White Other [employer] Other 05-19-2022 14:00-0500 Diastolic blood pressure 91 mm[Hg] Bakari White Other [employer] Other 05-19-2022 14:00-0500 Respiratory rate 20 /min Bakari White Other [employer] Other 05-19-2022 14:00-0500 SaO2% (BldA) [Mass fraction] 100 % Bakari White Other [employer] Other 05-19-2022 14:00-0500 Systolic blood pressure 152 mm[Hg] Bakari White Other [employer] Other 05-12-2022 14:21-0500 Body height 182.9 cm Ajay Galvan MD Work Phone: [employer] 05-12-2022 14:21-0500 Body mass index (BMI) [Ratio] 49.31 kg/m2 Ajay Galvan MD Work Phone: [employer] 05-12-2022 14:21-0500 Body temperature 96.8 [degF] Ajay Galvan MD Work Phone: [employer] 05-12-2022 14:21-0500 Body weight 164.93 kg Ajay Galvan MD Work Phone: [employer] 05-12-2022 14:21-0500 Diastolic blood pressure 86 mm[Hg] Ajay Galvan MD Work Phone: [employer] 05-12-2022 14:21-0500 Heart rate 74 /min Ajay Galvan MD Work Phone: [employer] 05-12-2022 14:21-0500 Respiratory rate 20 /min Ajay Galvan MD Work Phone: [facility] 05-12-2022 14:21-0500 SaO2% (BldA) [Mass fraction] 97 % Ajay Galvan MD Work Phone: [facility] 05-12-2022 14:21-0500 Systolic blood pressure 133 mm[Hg] Ajay Galvan MD Work Phone: [facility] 01-29-2022 15:56-0400 Diastolic blood pressure 92 mm[Hg] DO Bakari Branchi Work Phone: [facility] 01-29-2022 15:56-0400 Heart rate 63 /min DO Bakari Branchi Work Phone: [facility] 01-29-2022 15:56-0400 Respiratory rate 18 /min DO Bakari Branchi Work Phone: [facility] 01-29-2022 15:56-0400 SaO2% (BldA) [Mass fraction] 96 % DO Bakari White Work Phone: [facility] 01-29-2022 15:56-0400 Systolic blood pressure 165 mm[Hg] DO Bakari Branchi Work Phone: [facility] 01-29-2022 11:10-0400 Body height 182.88 cm DO Bakari Branchi Work Phone: [facility] 01-29-2022 11:10-0400 Body temperature 98.8 [degF] DO Bakari Branchi Work Phone: [facility] 01-29-2022 11:10-0400 Body weight 170 kg DO Bakari Damoncki Work Phone: [facility] 01-08-2022 15:30-0400 Body height 182.88 cm Bakari White Other [employer] Other 01-08-2022 15:30-0400 Diastolic blood pressure 84 mm[Hg] Bakari White Other [employer] Other 01-08-2022 15:30-0400 Respiratory rate 20 /min Bakari White Other [employer] Other 01-08-2022 15:30-0400 SaO2% (BldA) [Mass fraction] 98 % Bakari White Other [employer] Other 01-08-2022 15:30-0400 Systolic blood pressure 132 mm[Hg] Bakari White Other [employer] Other Encounters Encounter Date Encounter Type Care Provider Facility Start: 09-19-2024 End: 09-19-2024 ambulatory Apoloina Coleman MD Facility:[facility] Start: 07-19-2024 End: 07-19-2024 ambulatory [facility] Work Phone: Start: 07-19-2024 End: 07-19-2024 Patient encounter procedure Pending [facility] To [facility] Work Phone: Start: 07-11-2024 End: 07-11-2024 ambulatory Bakari White DO Work Phone: [facility] Work Phone: Start: 07-11-2024 End: 07-11-2024 Patient encounter procedure Bakari White DO Work Phone: Pending [facility] To [facility] [place] Work Phone: Start: 07-11-2024 End: 07-20-2024 Telephone encounter Dusty Patterson PT Work Phone: [facility] Comment on above: re: PT status and au th given; FU; Final Start: 07-06-2024 End: 07-06-2024 Bamboo flowsheet Louisa Guy SUPPLY CHAIN ENGINEER [facility] Start: 07-06-2024 End: 07-06-2024 Bamboo flowsheet Louisa Guy SUPPLY CHAIN ENGINEER [facility] Start: 07-06-2024 End: 07-06-2024 ambulatory Louisa Guy SUPPLY CHAIN ENGINEER [facility] Comment on above: Radiculopathy, [...] encounter procedure Bakari White DO Work Phone: [facility]ending [facility] Work Phone: Start: 05-16-2024 End: 05-16-2024 ambulatory Apolonia Coleman MD Facility: [facility] Start: 04-19-2024 End: 04-19-2024 ambulatory Bakari White DO Work Phone: [facility] Work Phone: Start: 04-19-2024 End: 04-19-2024 Encounter for general adult medical examination without abnormal findings Bakari White DO Work Phone: [facility] Start: 04-19-2024 End: 04-19-2024 Patient encounter procedure Bakari White DO Work Phone: Pending [facility] To [facility] Work Phone: Start: [...] encounter procedure Bakari White DO Work Phone: [facility] [place] Work Phone: Start: 04-13-2024 End: 04-13-2024 ambulatory Bakari White DO Work Phone: [facility] [place] [facility] Work Phone: Start: 03-02-2024 End: 03-02-2024 Bamboo flowsheet Mario Mensah INDUSTRIAL MAINTENANCE ELECTRICIAN Work Phone: [facility] Start: 03-02-2024 End: 03-02-2024 Bamboo flowsheet Mario Mensah INDUSTRIAL MAINTENANCE ELECTRICIAN Work Phone: [facility] Start: 03-02-2024 End: 03-02-2024 Office outpatient visit 25 minutes Mario Mensah INDUSTRIAL MAINTENANCE ELECTRICIAN Work Phone: [facility] Comment on above: Polyneuropathy (Prim jerry Dx) Start: 03-02-2024 End: 03-02-2024 ambulatory MARIO MENSAH Not Available Start: 02-24-2024 End: 02-24-2024 Emergency department patient visit BAKARI Moise [facility] Start: 06-10-2023 End: 06-10-2023 ambulatory Bakari Wellsperfecto Other [employer] Other Start: 06-10-2023 Telephone encounter Bakari Sarina burrows [facility] Start: 05-29-2023 End: 05-30-2023 Emergency department patient visit TYLER Kika [facility] Start: 05-29-2023 End: 05-30-2023 Emergency department patient visit TYLER Kika [facility] Start: 05-29-2023 End: 05-29-2023 Emergency department patient visit [facility] Start: 05-19-2023 End: 05-19-2023 ambulatory Bakari Damonjeremíasmarkos Other [employer] Other Start: 05-19-2023 Office outpatient vi sit 25 minutes Bakari Christopher [facility] Start: 03-16-2023 End: 03-17-2023 ambulatory [facility] E MALIKA [facility] Start: 02-24-2023 End: 02-24-2023 ambulatory Bakari Christopher Other [employer] Other Start: 02-24-2023 Encounter for other preprocedural examination Bakari Christopher [facility] Start: 02-24-2023 Office outpatient vi sit 25 minutes Bakari Christopher [facility] Start: 02-18-2023 End: 02-23-2023 ambulatory AJAY E MALIKA [facility] Start: 11-24-2022 End: 11-24-2022 ambulatory Bakari Christopher Other [employer] Other Start: 11-24-2022 Telephone encounter Bakari Branch i [facility] Start: 11-21-2022 End: 11-21-2022 ambulatory Bakari White Other [employer] Other Start: 11-21-2022 Encounter for genera l adult medical examination without abnormal findings Bakari White [facility] Start: 11-21-2022 Periodic preventive med est patient 40-64yrs Bakari White [facility] Start: 06-12-2022 End: 06-13-2022 ambulatory AJAY [facility] Start: 06-12-2022 End: 06-13-2022 Subsequent hospital visit by physician Ajay Galvan MD Work Phone: [facility] Comment on above: S/P TKR (total knee replacement) using cement, left (Primary Dx) Start: 06-09-2022 End: 06-09-2022 ambulatory AJAY GALVAN [facility] Start: 06-09-2022 End: 06-09-2022 Subsequent hospital visit by physician Ajay Galvan MD Work Phone: [facility] Start: 06-04-2022 End: 06-05-2022 ambulatory AJAY GALVAN [facility] Start: 06-04-2022 End: 06-05-2022 Encounter for other preprocedural examination BROADWATER Bulmaro GALVAN [facility] Start: 06-04-2022 End: 06-04-2022 Subsequent hospital visit by physician Juany Pena PT [facility] Physical [facility] Comment on above: Arrived Start: 05-22-2022 End: 05-22-2022 ambulatory Bakari White Other [employer] Other Start: 05-22-2022 Telephone encounter Bakari Branch i [facility] Start: 05-19-2022 End: 05-19-2022 ambulatory Bakari White Other [employer] Other Start: 05-19-2022 Encounter for other preprocedural examination Bakari White [facility] Start: 05-19-2022 Office outpatient vi sit 25 minutes Bakari White [facility] Start: 05-12-2022 End: 05-17-2022 ambulatory AJAY GALVAN [facility] Start: 05-12-2022 End: 05-16-2022 Subsequent hospital visit by physician Ajay Galvan MD Work Phone: [facility] PRE [facility]MIT Start: 04-11-2022 End: 04-11-2022 ambulatory Bakari Damonelmira Other [employer] Other Start: 04-11-2022 Telephone encounter Bakari Branch i [facility] Start: 01-30-2022 End: 01-30-2022 ambulatory Bakari White Other [employer] Other Start: 01-30-2022 Telephone encounter Bakari Branch i [facility] Start: 01-29-2022 End: 01-29-2022 Emergency department patient visit DO Bakari White Work Phone: [facility] Start: 01-27-2022 End: 01-27-2022 ambulatory Bakari White Other [employer] Other Start: 01-27-2022 Telephone encounter Bakari Branch i [place] Start: 01-24-2022 End: 01-24-2022 Patient encounter procedure DO Bakari White Work Phone: [facility] [place] Start: 01-23-2022 End: 01-23-2022 ambulatory Bakari Damonelmira Other [employer] Other Start: 01-23-2022 Telephone encounter Bakari Branch i [facility] Start: 01-13-2022 End: 01-13-2022 ambulatory Bakari White Other [employer] Other Start: 01-13-2022 Telephone encounter Bakari Branch i [facility] Start: 01-08-2022 End: 01-08-2022 ambulatory Bakari White Other [employer] Other Start: 01-08-2022 Office outpatient vi sit 15 minutes Bakari White [facility] Start: 11-25-2021 End: 11-25-2021 ambulatory Bakari Branchi Other [employer] Other Start: 11-25-2021 Telephone encounter Bakari Branch i [facility] [employer] Start: 10-02-2021 End: 10-02-2021 ambulatory Bakari White Other [employer] Other Start: 10-02-2021 Telephone encounter Bakari Branch i [facility] [employer] Start: 09-30-2021 End: 09-30-2021 ambulatory Bakari White Other [employer] Other Start: 09-30-2021 Telephone encounter Bakari Branch i [facility] Start: 07-29-2021 End: 07-29-2021 ambulatory Bakari White Other [employer] Other Start: 07-29-2021 Telephone encounter Bakari Branch i [place] Start: 06-03-2021 End: 06-03-2021 ambulatory Bakari White Other [employer] Other Start: 06-03-2021 Office outpatient vi sit 15 minutes Bakari LIZARRAGA [facility] [place] Start: 03-12-2018 End: 03-13-2018 Patient encounter DOCTOR THOMAS Facility: Start: 02-17-2018 End: 02-18-2018 Patient encounter ALEK MITTAL Facility:[facility] Start: 11-20-2017 End: 11-21-2017 Patient encounter ALEK MITTAL Facility:[facility] Start: 11-19-2017 Encounter for other specified special examinations ALEK MITTAL [facility] Start: 11-19-2017 End: 11-20-2017 Patient encounter MEG HACKETT Facility:[facility] Start: 11-02-2017 End: 11-12-2017 Evaluation and management of inpatient ALEK MITTAL Facility:[facility] Start: 11-02-2017 Encounter for preprocedural cardiovascular examination [facility] Start: 11-02-2017 Encounter for preprocedural laboratory examination [facility] Start: 10-30-2017 End: 11-02-2017 Patient encounter [facility] Facility: Start: 10-28-2017 End: 10-29-2017 Patient encounter [facility] Facility: Start: 10-28-2017 Pre-procedure evalua tion check Bakari White Other [employer] Other Encounter for other specified special examinations ALEK MITTAL [facility] Encounter for preprocedural laboratory examination 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) ALEK EBRAHEIM Start: 11-11-2017 DRAINAGE OF RIGHT [...] Treatment [facility] [address] [facility] [address] [place] [address] Louisa Guy, LILLIANA [facility] Start: 06-29-2024 End: 06-29-2024 ambulatory 06/29/2024 1:00 PM EST Evaluation [facility] [address] [facility] [address] [place] [address] Dusty Patterson, PT [address] [facility] [address] [place] [address] Arrived [facility] Comment on above: [...] 03/02/2024 8:40 AM EDT [facility] [address] [address] [facility] [address] [place] [phone] Mario Mensah, INDUSTRIAL MAINTENANCE ELECTRICIAN [address] [place], [place] [id number] Arrived [facility] Comment on above: Arrived Start: 06-12-2022 End: 06-12-2022 Admission to same day surgery center 06/12/2022 Surgery IP Unit Ajay Galvan MD [address] [place] [phone] KNEE TOTAL ARTHROPLASTY [facility] Comment on above: KNEE TOTAL ARTHROPLA STY Start: 06-12-2022 End: 06-12-2022 Arthrp kne condyle&platu medial&lat compartments KNEE TOTAL ARTHROPLASTY Arthritis of left knee 06/12/2022 10:50 AM [facility] Start: 06-12-2022 Subsequent hospital visit by physician 06/12/2022 Hospital Encounter IP Unit Ajay Galvan MD [address] [place] [phone] [facility] [place] Start: 06-09-2022 End: 06-09-2022 Admission to same day surgery center 06/09/2022 Surgery IP Unit Ajay Galvan MD [address] [place] [address] [place] [address] KNEE TOTAL ARTHROPLASTY [facility] Comment on above: KNEE TOTAL ARTHROPLA STY Start: 06-09-2022 End: 06-09-2022 Arthrp kne condyle&platu medial&lat compartments KNEE TOTAL ARTHROPLASTY Osteoarthritis of left knee, unspecified osteoarthritis type 06/09/2022 11:00 AM [facility] Start: 06-09-2022 Subsequent hospital visit by physician 06/09/2022 Hospital Encounter IP Unit Ajay Galvan MD [address] [place] [address] [facility] Start: 06-04-2022 End: 06-04-2022 Patient encounter procedure 06/04/2022 Appointment Physical Therapy Juany Pena PT [facility] Physical Therapy Start: 01-29-2022 CT of abdomen and pelvis without contrast CT abdomen pelvis wo [facility] Start: 01-29-2022 End: 01-29-2022 Emergency department patient visit Departed Emergency [facility] Start: 12-30-2021 Influenza vaccination Flu vaccine (# 1) [facility] Start: 2011 Shingles vaccine (1 of 2) Shingles vaccine (1 of 2) [facility] Start: 2006 Screening for malign ant neoplasm of colon [facility] Start: 2001 Lipid panel Lipids [facility] Start: 01-13-1980 DTaP/Tdap/Td vaccine (1 - Tdap) DTaP/Tdap/Td vaccine (1 - Tdap) [facility] Start: 1979 Hepatitis C screening Hepatitis C sc reen [facility] Start: 01-13-1976 HIV screening HIV screen [facility] Start: 1973 Depression Screen Depression Screen [facility] Start: 1961 COVID-19 Vaccine (#1) COVID-19 Vacci ne (#1) [facility] Oxygen therapy [[facility] Data Set] Initiate Oxygen Therapy Protocol Respiratory Care Routine As Needed until discontinued starting 06/12/2022 LILIYA BLAKE [facility] Work Phone: Comment on above: As Needed until disc ontinued starting 06/12/2022 Patient Education Low Back Pain ED Kidney Stone, Adult ED [facility] Work Phone: Patient referral [facility] Work Phone: XR Foot - left GE 3 Views [facility] Immunizations Immunization Date Immunization Notes Care Provider Juan Miguel barkley NEGATED: Highlighted row has not occurred!09-02-2018 influenza, seasonal, injectable Patient Objection Bakari Wellsperfecto Other [employer] Other Payers Date Payer Category Payer Self-pay [id number] 2022 [facility] [id number] 2022 Unknown [id number]. 1.13.693.2 .7.3.795917.315 2013 Unknown [id number] 1961 Unknown [id number] 2.16.840.1.830995.3.579.2 .593 1961 Unknown [id number] 2.16.840.1.827228.3.579.2 .593 1961 Unknown [id number] 2.16.840.1.703392.3.579.2 .593 1961 Unknown [id number] 2.16.840.1.691501.3.579.2 .173 1961 Unknown [id number] 2.16.840.1.131855.3.579.2 .173 1961 Unknown [id number] 2.16.840.1.314448.3.579.2 .173 1961 Unknown [id number] 2.16.840.1.792781.3.579.2 .173 1961 Unknown [id number] 2.16.840.1.241628.3.579.2 .173 1961 Unknown [id number] 2.16.840.1.381123.3.579.2 .173 1961 Unknown [id number] 2.16.840.1.433444.3.579.2 .1286 1961 Unknown [id number] 2.16.840.1.358138.3.579.2 .1286 1961 Unknown [id number] 2.16.840.1.282228.3.579.2 .1286 1961 Unknown [id number] 2.16.840.1.857316.3.579.2 .1286 1961 Unknown [id number] 2.16.840.1.561275.3.579.2 .1286 1961 Unknown [id number] 2.16.840.1.880571.3.579.2 .1259 1961 Unknown [id number] 2.16.840.1.866767.3.579.2 .1259 1961 Unknown [id number] 2.16.840.1.753764.3.579.2 .1259 1961 Unknown [id number] 2.16.840.1.091997.3.579.2 .1259 1961 Unknown [id number] 2.16.840.1.057694.3.579.2 .196 1961 Unknown [id number] 2.16.840.1.949958.3.579.2 .196 1961 Unknown [id number] 2.16.840.1.744143.3.579.2 .196 1959 Unknown [id number] Unknown [id number] 2.16.840.1.628282.3.579.2 .531 Unknown [id number] 2.16.840.1.701048.3.579.2 .531 Social History Date Type Detail Facility Tobacco smoking status NHIS Unknown if ever smoked [facility] Start: 1960 Sex Assigned At Male F [facility] Start: 03-02-2024 End: 04-13-2024 Sex Assigned At [facility] [employer] Other Start: 01-29-2022 End: 03-02-2024 Tobacco smoking status NHIS Never smoked tobacco (finding) [facility] Start: 05-12-2022 End: 03-02-2024 Tobacco use and exposure Smokeless tobacco non-user [employer] Phone: Start: 05-12-2022 End: 06-12-2022 Alcohol intake Current drinker of alcohol (finding) [employer] Phone: Start: 05-12-2022 Alcohol Comment rare [employer] Phone: Start: 1960 Sex Assigned At Not on file B ON [employer] Phone: Start: 05-02-2022 End: 06-12-2022 Exposure to SARS-CoV-2 (event) Not sure [employer] Phone: Start: 03-02-2024 End: 04-13-2024 History of Social function [facility] Start: 04-14-2024 End: 07-19-2024 Sex Male (finding) [facility] Medical Equipment Procedure Code Equipment Code Equipment Origin al Text Equipment Identifier Dates Psn Mc Ve Asf L 12mm 8-11 Ef - [id number] Start: 06-12-2022 Goals Date Patient Goal Desired Activity /State Clinical Notes 01-08-2022 to 07-20-2024 Telephone Encounter - Tamika Schaefer - 07/20/2024 12:42 PM ESTTelephone Encounter - Tamika Silvano - 07/20/2024 12:42 PM ESTTelephone Encounter - [facility] - 07/18/2024 12:37 PM EST Note Date & Type Note Facility 07-20-2024 Telephone encounter Note Form atting of this note might be different from the original. With 2 attempts and not able to contact today, I am unable to check status and offer to schedule more PT. [facility] 07-20-2024 Miscellaneous Notes Formattin g of this [...] I'll call back. documented in this encounter [facility] 07-18-2024 Telephone encounter Note Form atting of this note might be different from the original. Tried to contact but there was no ring-in on phone call; tried 3x's. Off HIPAA, I called and she said she will inform him to call back. [facility] 07-11-2024 Telephone encounter Note Form atting of [...] hear back by 07/14, I'll call back. [facility] 06-29-2024 History of Presen t illness Narrative [...] to be instructed in home exercise program. 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 Date: documented in this encounter [facility] 05-27-2024 Evaluation note Diagnosis Onset Date Resolution BPH (benign prostatic hyperplasia) acute May 27, 2 024 8:35am Morbid (severe) obesity due to excess calories acute May 27 024 8:35am Influenza A acute July 3:06pm [facility] Work Phone: 1(814) 634-604911-19-2024 Evaluation note* Diagnosis Onset Date Resolution Status Admit Date BPH (benign prostatic hyperplasia) acute April 19 024 1:49pm Mixed hyperlipidemia acute [facility] 2023 1:49pm Morbid (severe) obesity due to excess calories acute April 1:49pm COTY (obstructive sleep apnea) acute April 19, 2024 1:49pm Other iron deficiency anemias acute April 19, 2024 1:49pm Screening for colon cancer noneactiv e April 19, 2024 1:49pm Encounter for wellness examination noneactive April 19 024 1:49pm Left foot pain noneactive April 012023 1:49pm [facility] Work Phone: 1(904) 506-443811-19-2024 Evaluation note* Diagnosis Onset Date Resolution Status Admit Date BPH (benign prostatic hyperplasia) acute April 19 024 1:49pm Mixed hyperlipidemia acute [facility] 2023 1:49pm Morbid (severe) obesity due to [...] due to excess calories acute May 8:35am [facility] Work Phone: 1([phone]) 334-250211-13-2024 History of Present illness Narrative* Darlene Hill, [...] Review Audit Reviewed by Kathy Benedict MA (Family Resource Management Professor) on 04/13/24 at 1233 Medication Order Taking? Sig Documenting Provider Last Dose Status DULoxetine (Cymbalta) [address] capsule [id number] Take 1 capsule (30 mg) by mouth [...] toe bilaterally. Proprioception is absent. Coordination Right: Tinghj-ia-lqrf normal. Rapid alternating movement normal.Left: Suvtrj-us-ilpu normal. Rapid alternating movement normal. Gait Unsteady, ambulates with a cane, uses arms to get out of the chair, right foot turned out slightly. Motor Examination RUE Strength deltoid, biceps, triceps, wrist extensors, wrist extensors, wrist flexor, log loader strength 5/5. LUE Strength deltoid, biceps, triceps, wrist extensors, wrist extensors, wrist flexor, log loader strength 5/5. RLE Strength illopsoas, quadriceps, tibialis [...] or sooner if needed documented [id number] Evaluation note* Encounter Date Diagnosis Assessment Notes [...] Screening for prostate cancer (ICD-10 - Z12.5) [employer] Other 09-26-2023 Evaluation note* Encounter Date Diagnosis [...] go forward with surgery at this time. [employer] Other 06-23-2023 Evaluation note* Encounter Date Diagnosis [...] on preoperative labs. Will continue to monitor. [employer] Other 01-13-2023 History of Present illness Narrative* Nicky Álvarez RN - 06/13/2022 7:45 PM EST Patient wheelchair out to private vehicle with . Belongings in hands. Discharge paperwork gone over by Laura SILVER * Kathi Jimenez RN - 06/13/2022 6:55 PM EST Landing Man faxed discharge information to [facility] @ * Kathi Jimenez RN - 06/13/2022 6:42 PM EST Landing Man reviewed discharge instructions with patient. Instructed on [...] 06/13/2022 11:36 AM EST Occupational Therapy Facility/Department: [facility] Occupational Therapy Initial Assessment Name: Júnior Rowland : 1960 Date of Service: 06/13/2022 Discharge Recommendations: Continue to assess pending progress, Home with Home health OT Patient Diagnosis(es): There were no encounter diagnoses. Past Medical History: has no past medical history on file. Past Surgical History: has a past surgical history that includes tumor removal (2014); knee surgery(Right, 2018); [place] tooth extraction; and Tonsillectomy. 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 yosef valentin with [employer]BA using federal mediation commissioner. Educated on use of easy slide/fold techinque [...] 30 Karmen Rogers OT * Radha Allan, SUPPLY CHAIN ENGINEER - 06/13/2022 11:35 AM EST Physical Therapy Facility/Department: [facility] Daily Treatment Note NAME: Júnior [...] Short Term Goal 2: CGA GAIT FWW. Ch[facility] Goals Time Frame for Ch[facility] Goals : 4 WEEKS Chcf Goal 1: IND GAIT ST CANE. Patient Goals Patient Goals : RETURN HOME WITH ASSIST. Education Patient Education Education Given To: Patient Education Provided: Transfer Training;Home Exercise Program Education Method: Demonstration Barriers to Learning: None Education Outcome: Verbalized understanding;Demonstrated understanding Therapy Time Individual Concurrent Group Co-treatment Time In 1100 Time Out 1132 Minutes 32 Timed Code Treatment Minutes: 32 Minutes Radha Allan, [id number] * Tanesha Fall RN - 06/13/2022 11:23 AM EST Pt walked with therapy and returned to room. He used urinal but therapist emptied it It wasn't very much, I'm sorry I didn't see you were measuring it * Radha Allan PTA - 06/13/2022 8:58 AM EST Physical Therapy Facility/Department: [facility] Daily Treatment Note NAME: Júnior [...] Short Term Goal 2: CGA GAIT FWW. Bristle Machine Operator Goals Time Frame for Bristle Machine Operator Goals : 4 WEEKS Chcf Goal 1: IND GAIT ST CANE. Patient Goals Patient Goals : RETURN HOME WITH ASSIST. Education Patient Education Education Given To: Patient Education Provided: Transfer Training Education Method: Demonstration Barriers to Learning: None Education Outcome: Verbalized understanding;Demonstrated understanding Therapy Time Individual Concurrent Group Co-treatment Time In 0830 Time Out 0858 Minutes 28 Timed Code Treatment Minutes: 28 Minutes Radha Allan, [id number] * Tanesha Fall RN - 06/13/2022 7:15 [...] PM EST Scheduled tylenol given. Patient stated Q[place]man PO did help with pain. Hemavac emptied, [...] got drainage right away. Emptied right before data analyst report writer left room, 110 bloody drainage. Patient expressed wanting to get into bed. Patient stood and ambulated a few feet to bed. Patient tolerated well and did so with walker and contact guard. Ancef antibiotic hung. Patient rating pain 6/10, Quitman PO given for pain. Water pitcher refilled. Patient got comfortable in bed. Patient deniesany other needs at this time. Call light, bedside table and personal belongings within reach. * Ivania Singh, PT - 06/12/2022 5:10 PM EST Physical Therapy Facility/Department: [facility] Physical Therapy Initial Assessment Name: [...] includes tumor removal (2014); knee surgery(Right, 2018); [place] tooth extraction; and Tonsillectomy. Assessment Body Structures, [...] Short Term Goal 2: CGA GAIT FWW. Bristle Machine Operator Goals Time Frame for Chcf Goals : 4 WEEKS Bristle Machine Operator Goal 1: IND GAIT ST [...] or converted to UFH per the approved [facility] protocol and table as identified below. Júnior [...] adult. N/A [facility] [employer] Work Phone: [phone]) 430-489801-13-2023 Hospital Discharge instructions* Discharge Instructions* Kathi Jimenez [...] at most local grocery stores, pharmacies, and [employer]-stores. If you have any questions about your diet or nutrition, call the hospital and ask for the dietitian. Regular diet documented in [facility] [employer] [facility] Work Phone: [phone]) 847-138901-13-2023 Hospital course Narrative* Ajay Galvan MD - 06/13/2022 5:37 PM EST Physician Discharge Summary Patient ID: Júnior Rowland [id number] 1960 Admit date: 06/12/2022 Discharge date and [...] 5-325 MG per tablet Commonly known as: Quitman Take 1-2 tablets by mouth every 4 hours as needed for Pain for up to 7 days. Max Daily Amount: 12 tablets Xarelto 10 MG Tabs tablet Generic drug: rivaroxaban Take 1 tablet by mouth daily (with breakfast) CONTINUE taking these medications celecoxib 200 MG capsule Commonly known as: CELEBREX Where to Get Your Medications These medications were sent to [id number] - [place], [place] - [address] - P [phone] - F [phone] [place] [address] HYDROcodone-acetaminophen 5-325 MG per tablet Xarelto 10 MG Tabs tablet Activity: Physical Therapy Wound Care: keep wound clean and dry, shower after 4 days if no drainage Other: Follow-up with AJAY GALVAN MD in 2 weeks. Signed: AJAY GALVAN MD, M.D. 06/13/2022 5:37 PM documented in this [facility] [employer] Phone: 1(772) 744-499001-09-2023 History of Present illness Narrative* JOEY Durham [...] case. Implies understanding. documented in this encounterBON [employer] Phone: 1([phone]) 162-939612-19-2022 Evaluation note* Encounter Date Diagnosis Assessment Notes [...] go forward with surgery at this time. [employer] Other 12-12-2022 History of Present illness Narrative* Lola Moseley RN - 05/12/2022 2:00 PM EST Patient instructed on the pre-operative, intra-operative, and post-operative process. Patient instructed on NPO status. Medication instructions and pre operative instruction sheet reviewed with the patient. CHG skin prep instructions reviewed with patient. * Lola Moseley RN - 05/12/2022 2:00 PM EST [facility] Preadmission Testing Name: Júnior Rowland : [...] and medical clearance. documented in [facility] [employer] [facility] Work Phone: [phone]) 856-551008-25-2022 Evaluation note* Encounter Date Diagnosis Assessment Notes Treatment Notes Treatment Clinical Notes Dec, Low back pain, unspecified (ICD-10 - M54.50) [employer] Other 08-15-2022 Evaluation note* Encounter Date Diagnosis Assessment Notes Treatment Notes Treatment Clinical Notes Dec, Low back pain, unspecified (ICD-10 - M54.50) [employer] Other 08-10-2022 Evaluation note* Encounter Date Diagnosis [...] and operating heavy machinery while using it. [place] [employer] Other evaluation noteNortMain Line Health/[facility] [employer] Other evaluation noteNo InformationNortMain Line Health/[facility] [employer] Other evaluation noteNo assessment information available [facility] Work Phone: evaluation note* Diagnosis S/P TKR (total knee replacement) using cement, left- Primary S/P TKR (total knee replacement) using cement, left documented in this encounter [facility] Work Phone: evaluation note* Diagnosis Polyneuropathy- Primary Unspecified hereditary and idiopathic peripheral neuropathy [facility]* Diagnosis Onset Date Resolution Status Admit Date BPH (benign prostatic hyperplasia) acute April 19 024 1:49pm Mixed hyperlipidemia acute [facility] 2023 1:49pm Morbid (severe) obesity due to excess calories acute April 1:49pm COTY (obstructive sleep apnea) acute April 19, 2024 1:49pm Other iron deficiency anemias acute April 19, 2024 1:49pm Screening for colon cancer noneactiv e April 19, 2024 1:49pm Encounter for wellness examination noneactive April 19 024 1:49pm Left foot pain noneactive April 012023 1:49pm [facility] Work Phone: Evaluation note* Diagnosis Polyneuropathy- Primary [...] encounter [facility] general Narrative - ReportedNort [employer] Other history general Narrative - Reported* Type [...] 2017 Hospitalization History see above Hospitalization History [facility] for wound care 10/31 018 [employer] Other etaskrghzl general Narrative - Reported* Type Description Date [...] 2017 Hospitalization History see above Hospitalization History [facility] for wound care 10/31 018 [employer] Other history general Narrative - Reported* Type [...] 06/2022 Hospitalization History see above Hospitalization History [facility] for wound care 10/31 018 [employer] Other history general Narrative - Reported* Type [...] 03/16/20 Hospitalization History see above Hospitalization History [facility] for wound care 10/31 018 [employer] Other Reason for visit Narrative* Rehabilitation - Outpatient (Routine) - Authorized Specialty Diagnoses / Procedures Referred By Contac t Referred To Contact Physical Therapy Diagnoses Radiculopathy, lumbar region Pain in left foot Procedures CT PHYSICAL THERAPY EVALUATION LOW COMPLEX [address] OFFICE/OUTPATIENT NEW HIGH MDM 60 MINUTES Alessandra Murillo MD [address] [place] [address] Phone: tel: fax: [facility] [address] [facility] [address] [place] [address] Phone: tel: fax: Referral ID Status Reason Start Date Expiration Date V isits Requested Visits Authorized [id number] Authorized 06/29/2024 08/27/2024 6 6 [facility] [...] cancer April 1:49pm Encounter for wellness examination [facility] 2023 1:49pm Left foot pain April 19, 2024 1:49pm BPH (benign prostatic hyperplasia) Decem 2023 8:35am Morbid (severe) obesity due to excess ca lories May 27, 2024 8:35am Chief Complaint Admit Date Continuing prostate issues May 8:35am Cough, congestion, wheezing, shortness o f breath July 11, 2024 3:06pm [facility] f/u flu a, still has cough [...] section and content) DATE CREATED AUTHOR 03/20/2018 [facility] DATE CREATED AUTHOR AUTHOR'S ORGANIZ ATION 04/15/2018 [facility] DATE CREATED AUTHOR AUTHOR'S ORGANIZ ATION 03/25/2023 [facility] DATE CREATED AUTHOR AUTHOR'S ORGANIZ ATION 02/26/2024 [facility] DATE CREATED AUTHOR AUTHOR'S ORGANIZ ATION 04/25/2024 [facility] DATE CREATED AUTHOR AUTHOR'S ORGANIZ ATION 07/08/2024 [facility] EPIC DATE CREATED AUTHOR AUTHOR'S ORGANIZ ATION 09/27/2024 [facility] REASON FOR VISIT (unrecogniz ed section and content) Reason Onset Date Comments re: PT status and auth given 07/11/2024 FU 07/18/2024 Final 07/20/2024 Reason Comments Numbness 6 month Follow upPre-surgical exam- right knee replacement scheduled for 03/16/[address] Galvanscriptannual/possible circulation issue, cold foot, lower extremity pain and rednessupdatePre-surgical Exam Left total knee replacement scheduled 06/09/[address] Galvan at [facility] Specialty Diagnoses / Procedures Referred By Taty chakraborty Referred To Contact Diagnoses Arthritis of left knee LEFT KNEE ARTHRITIS Procedures CT ARTHRP KNE CONDYLE&PLATU MEDIAL&LAT COMPARTMENTS KNEE TOTAL ARTHROPLASTY Ajay Galvan MD [address] [place] [phone] [facility] [address] [place] [address] Referral ID Status Reason Start Date Expiration Date Visits Re quested Visits Authorized [id number] 1 1 Specialty Diagnoses / Procedures Referred By Taty chakraborty Referred To Contact Diagnoses Osteoarthritis of left knee, unspecified osteoarthritis type LEFT KNEE PRIMARY OSTEOARTHRITIS Procedures CT TOTAL KNEE ARTHROPLASTY KNEE TOTAL ARTHROPLASTY Ajay Galvan MD [address] [place] [phone] [facility] [address] [place] [address] Referral ID Status Reason Start Date Expiration Date Visits Re quested Visits Authorized [id number] 1 1 ER Follow upClinical Acute IllnessClinical [...] Primary Care Provider, Attendin g Provider Active Slip Cover Estimator Relationship Specialty Start Date End Date Fatou Ridley MD [address] [place] [address] PCP - General 06/13/22 Slip Cover Estimator Relationship Specialty Start Date End Date Bakari White MD NPI: PCP - General Family Medicine 04/07/23 Slip Cover Estimator Relationship Specialty Start Date End Date Bakari White MD NPI: PCP - General Family Medicine 04/07/23 Team Status: Inactive Member Role Status Dates Bakari White DO Primary Care Prov ider, Attending Provider Active Start: April 19, 2024 End: April 19, 2024 Slip Cover Estimator Relationship Specialty Start Date End Date Bakari White MD [address] [place] [phone] PCP - General Family Medicine 04/11/24 Elda Bryant MD [address] [place] [address] Referring Physician Neurology 04/11/24 Darlene Brito PA [address] [place] [address] Physician [place] Neurology 04/11/24 Eugenia Davis PA [address] [place] [address] Physician [place] Neu[facility] 04/11/24 Slip Cover Estimator Relationship Specialty Start Date End Date Bakari White MD [address] [place] [place] [phone] PCP - General Family Medicine 04/11/24 Elda Bryant MD [address] [place] [address] Referring Physician Neurology 04/11/24 Darlene Brito PA [address] [place] [address] Physician [place] Neu[facility] 04/11/24 Eugenia Davis PA [address] [place] [address] Physician [place] Neu[facility] 04/11/24 Slip Cover Estimator Relationship Specialty Start Date End Date Bakari White MD [address] [place] [phone] PCP - General Family Medicine 04/11/24 Elda Bryant MD [address] [place] [address] Referring Physician Neurology 04/11/24 Darlene Brito PA [address] [place] [address] Physician [place] Neu[facility] 04/11/24 Eugenia Davis PA [address] [address] [place] [address] Physician [facility] 04/11/24 Slip Cover Estimator Relationship Specialty Start Date End Date Bakari White MD NPI: [id number] [place] [id number] PCP - General Family Medicine 04/11/24 Elda Bryant MD [address] [place] [address] Referring Physician Neurology 04/11/24 Darlene Brito PA [address] [place] [address] Physician [facility] 04/11/24 Eugenia Davis PA [address] [place] [address] Physician [facility] 04/11/24 Slip Cover Estimator Relationship Specialty Start Date End Date Bakari White MD [address] [place] [place] [phone] PCP - General Family Medicine 04/11/24 Elda Bryant MD [address] [place] [address] Referring Physician Neurology 04/11/24 Darlene Brito PA [address] [place] [address] Physician [facility] 04/11/24 Eugenia Davis PA [address] [facility] [address] [place] [address] Physician [facility] 04/11/24 Slip Cover Estimator Relationship Specialty Start Date End Date Bakari White MD [address] [place] [address] PCP - General Family Medicine 04/11/24 Elda Bryant MD [address] [place] [address] Referring Physician Neurology 04/11/24 Darlene Brito PA [address] [facility] [address] [place] [address] Physician [facility] 04/11/24 Eugenia Davis PA [address] [facility] [address] [facility] [place] [address] Physician [facility] 04/11/24 Team Status: Inactive Member Role [...] July 19, 2024 End: July 19, 2024 Slip Cover Estimator Relationship Specialty Start Date End Date Bakari White MD NPI: [id number] [place] [address] PCP - General Family Medicine 04/11/24 Elda Bryant MD [address] [place] [address] Referring Physician Neurology 04/11/24 Darlene Brito PA [address] [place] [address] Physician [facility] 04/11/24 Eugenia Davis PA [address] [place] [address] Physician [facility] 04/11/24 Goals (unrecognized section and content) [...] ADRIANNE)1754 (Given - Provider: Tanesha Fall RN) iulbcbzeq-[id number] ine 60-150-60 MG/50ML injection (CANCELED) PRN, Starting [...] Thu06/12/22 at 1857, For 1 dose, Nicky Álavrez: cabinet override 191 (New Bag - Provider: [...] BE BASED ON THE PRIMARY CLINICAL RECORDS. [facility]. provides no warranty or guarantee of the accuracy or completeness of information in this document.
--- NOTE | 2024-10-19 10:24 | P.CN_ITS ---
Consult Note: HPI Data of Consult Patient: known to practice within the last 3 years Requesting Physician: Tea Baig NP Primary Care Provider: Non-Staff Physician, MD Consult Narrative Reason for consult: f/u Narrative: Júnior Chu a pleasant 64 year old male presents for evaluation of chronic left foot/LE pain. Pain now 4/10 increasing to 10/10. 100% pain in left foot and ankle, 0% back pain per pt. pt has failed to benefit from > 6 weeks of PT/provider guided HEP, heat, ice, tylenol and NSAIDs in the past. could not tolerate gabapentin or pregabalin, now on zonegran 100mg hs with benefit. SARAH 25% recently underwent left distal sciatic nerve block with 50% improvement in left foot/ankle pain ongoing. cc:: CC: Tea Baig NP Review of Systems ROS Status of ROS 10 or more systems reviewed and unremark able except as noted in history and below Musculoskeletal Reports: extremity pain PFSH PFSH Medical History (Updated 09/28/24 @ 10:24 by Tea Baig NP) Neck pain ?M54.2 - Cervicalgia (ICD-10) Obesity ?E66.9 - Obesity, unspecified (ICD-10) Kidney stone ?N20.0 - Calculus of kidney (ICD-10) Sleep apnea ?G47.30 - Sleep apnea, unspecified (ICD-10) Surgical History Hx of total knee arthroplasty ?Z96.659 - Presence of unspecified artificial knee joint (ICD-10) Meds Home Medications and Allergies Home Medications ?Medication ?Instructions ?Recorded ?Confirmed ?Type zonisamide 50 mg capsule mg PO 09/30/24 History Allergies Allergy/AdvReac Type Severity Reaction Status Date / Time No Known Drug Allergies Allergy Verified 10/10/24 09:43 Exam Constitutional Documenting provider has reviewed patient's vital signs: yes Common normals: no apparent distress, oriented x3, alert and well nourished General appearance: cooperative Nutritional appearance: obese HENMT Common normals: normocephalic, hearing grossly normal bilaterally and moist oral mucous membranes Head and scalp: normocephalic Eye Common normals: PERRL Pupil: PERRL Neck & C-Spine Common normals: full ROM General: normal visual inspection Chest Common normals: inspection of chest normal Respiratory Common normals: normal respiratory effort, no retractions and no use of accessory muscles Back & Pelvis Lumbar spine/lower back: ROM limited and straight leg raise positive left; no pain with ROM and no lumbar spinal tenderness Extremity Other: decreased sensation to left L5,S1 dermatomal pattern below left knee. significant pain at foot and ankle. no redness or edema noted. full ROM. significant increase in pain of left foot with flexion/extension Neuro Common normals: oriented x3 Sensorium/orientation: alert Psych Common normals: mental status grossly normal, thought process normal, cooperative, affect normal, speech normal and activity/motor behavior normal Speech: normal speech Thought process: normal thought process Results Additional Findings Additional findings: If on a controlled substance or opioids, I have checked an [place]AR[place] report on this patient and there are no aberrancies noted in the prescribing history.??If on a controlled substance or opioid a drug screen was completed and reviewed within the last year, and if there has not been a drug screen completed we ordered one today to monitor higher risk, state monitored pain medication use. As part of providing excellent, safe, comprehensive care, the following was completed at our patient's visit: 1. A medication reconciliation and review to ensure accurate knowledge of current/active medications, including asking our patients to inform us about any rrzh-qyr-nlewlgf medications or herbal remedies/nutritional supplements/alter redding remedies. 2. A review to specifically ensure our patients have had annual screening for screening for depression, screening for tobacco use, and screening for unhealthy alcohol use. For concerning screenings had a discussion with the patient, provided patient education, and recommended follow-up with primary care provider when appropriate. If patient noted with a risk of falling, they received education on strength, gait, and balance training to prevent future risk of falling. Portions of this note may have been carried over from the previous visit and updated as appropriate. Please note this office utilizes paper charting in addition to the electronic medical record. A list of current medications, vitals, and PMH is available there as the clinical staff outside of myself do not have access to [facility] charting during the clinic day operations. As part of providing quality comprehensive care the current medications, vitals, and PMH were reviewed in the paper chart. Assessment and Plan Assessment and Plan (1) Sciatica: (2) Lumbar radiculopathy: (3) Lumbar stenosis with neurogenic claudication: (4) Lumbar spondylosis: Plan 64yom who presents for evaluation. failed conservative measures, as noted. imaging reviewed, as noted. scs discussed today, handout provided. increase zonegran 50mg BID and 100mg HS, risks vs benefits reviewed. f/u 6 weeks to evaluate response
== END 2024-10-19 09:43 | disposition home or self-care (01) ==
LOC: PM 09:42
PROVIDERS: Visit Provider Nurse Practitioner
DX: M54.30 Sciatica, unspecified side (principal); M54.16 Radiculopathy, lumbar region; M48.062 Spinal stenosis, lumbar region with neurogenic claudication; M47.816 Spondylosis without myelopathy or radiculopathy, lumbar region
CPT/HCPCS: G0463

== ENCOUNTER 2025-01-28 16:36 | Emergency (ER) | payer BC, SELFPAY ==
--- OUTSIDE RECORDS SUMMARY | 2024-05-04 10:30 | XMS_ITS ---
Author Organization [facility] in [place] Address [address] [place] [address] Care Team Providers Care Electrical Intern Name Role Phone None, Unknown or Primary Care Provider Unavailab Bassam Lugo Unavailable [phone] Allergies Allergen (clinical drug ingredient) Drug/Non Drug Allergy documented on EMR Reaction Allergy Type Onset Date Status Information temporarily unavailable Cephalexin rash Drug Allergy Active Reason For Referral Reason evaluation and treat ment -- see attached order Diagnosis 1 Left foot pain (M79. 672) Referral Organization [facility] ([facility]) Referring Provider First Name Bassam Referring Provider Last Name Monica Referring Provider Speciality Podiatry Referred Provider [facility], Physical Therap y Referred Provider Specialty Physical Med icine and Rehabilitation Referral Priority Routine Reason lumbar radiculopathy Diagnosis 1 Left foot pain (M79. 672) Referral Organization [facility] ([facility]) Referring Provider First Name Bassam Referring Provider Last Name Monica Referring Provider Speciality Podiatry Referred Provider Pain Management, TB Referred Provider Specialty Pain Medicin e Referral Priority Routine Reason see attached order Diagnosis 1 Left foot pain (M79. 672) Referral Organization [facility] ([facility]) Referring Provider First Name Bassam Referring Provider Last Name Monica Referring Provider Speciality Podiatry Referred Provider Specialty Pharmacist Referral Priority Routine REASON FOR VISIT Left foot pain, neuropathy ruled out, EMG at [facility], imaging at [facility] Social History Tobacco Use: Social History Observation Description Date Details (start date - stop date) Never Smoker NA - NA Tobacco Control (Standard) Question Answer Notes Tobacco use: Nonsmoker Vital Signs Weight 390 lbs 05/04/2024 Height 72 in 05/04/2024 Temperature 97.5 degrees Fahrenheit 05/04/20 24 Heart Rate 79 /min 05/04/2024 BMI 52.89 kg/m2 05/04/2024 Oximetry 98 % 05/04/2024 Encounters Encounter Location Date Provider Diagnosis [facility] (PODIATRY) [address] [place] [address] [place] [id number] 05/04/2024 Peter Highlander Left foot pain M79.672 and Neuralgia and neuritis, unspecified M79.2 Assessments Encounter Date Diagnosis (ICD Code) Assessment Notes Treatment Notes Treatment Clinical Notes Section Notes 05/04/2024 Left foot pain (ICD-10 - M79.672) Patient was seen and evaluated. Patient education provided and all questions answered to his satisfaction. He was reportedly told over the phone that his EMG did not indicate any evidence of nerve entrapment or neuropathy however upon review of the EMG results the dictated states findings are consistent with neuropathy. His examination is also consistent with nerve entrapment. I prescribed topical compound from local compounding pharmacy as well as ordered physical therapy. 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 He may follow-up with me as needed 05/04/2024 Neuralgia and neuritis, unspecified (ICD-10 - M79.2) Plan Of Treatment Treatment Notes Assessment Notes Left foot pain Patient was seen and evaluated. Patient education provided and all questions answered to his satisfaction. He was reportedly told over the phone that his EMG did not indicate any evidence of nerve entrapment or neuropathy however upon review of the EMG results the dictated states findings are consistent with neuropathy. His examination is also consistent with nerve entrapment. I prescribed topical compound from local compounding pharmacy as well as ordered physical therapy. 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 He may follow-up with me as needed Pending Test Test Name Order Date XR Foot LT (3 views) * 05/04/2024 Referrals Referral Date Details 05/04/2024 05/04/2024, evaluati on and treatment -- see attached order, Physical Therapy [facility] 05/04/2024 05/04/2024, lumbar r adiculopathy, [facility] Pain Management 05/04/2024 05/04/2024, see leonor ched order Progress Notes * Jacklyn CHUOB:[birth year] (64 yo M)Acc No.[id number]:05/04/2024 New Patient Patient: Júnior WTASON Provider: Kika Anderson DPM, MS :1960 A ge:64 Y S ex:Male Date:05/04/2024 Address:[address] [place], [place] [id number] Pcp:Unknown or None Check In:02:52 PM ESTCheck O ut:03:41 PM EST Subjective: * Chief Complaints: * L eft foot pain, neuropathy ruled out, EMG at [facility], imaging at [facility] * HPI: G eneral: Patient in office today for initial evaluation of left foot pain. Patient states he has intense dorsal foot pain at times where his foot will turn red and become swollen. His pain does go up to 10/10, currently his pain is 6/10. His pain to his lateral left foot is constant. He was recently seen by neurology and EMG was obtained. He was prescribed cymbalta and this did not help. He does not take any medications on a daily basis. He had his bilateral knees replaced, developed lower leg edema. When the edema subsided, he noticed the left foot pain. * ROS: G eneral/Constitutional: Chills d enies. F ever d enies. W eight gain?denies. W eight loss d enies. S kin: Skin Ulcers d enies. S kin lesion(s) d enies. ? C ardiovascular: Difficulty breathing on exertion d enies. L eg cramps?denies. E bi d enies. C hest pain d enies. R espiratory: Difficulty breathing d enies. D yspnea d enies.?Cough d enies. G astrointestinal: Diarrhea d enies. N ausea d enies. V omiting?denies. M usculoskeletal: Bone/Joint Symptoms d enies. C detention Pain d enies.?Leg cramps d enies. N eurologic: Numbness d enies. T ingling d enies . G ait abnormality d enies. ? H ematology: Anemia D enies. E asy bruising d enies. ? A ll Other Systems: Review of Systems (ROS) S ee HPI for details,All others negative except those mentioned in HPI. * Active Problem List M79.672 Left foot pain Modified On:05/03/2024W/U Status:confirmed * Medical History: * Surgical History: b ilateral knee replacement tonsilectomy spinal surgery removal of benign tumor from neck wisdom teeth extraction * Hospitalization/Major Diagno stic Procedure: * Family History: M other: diagnosed with Other malignant neoplasm of unspecified site. obesity - grandmother. * Social History: T obacco Use: T obacco Control (Standard) T obacco use: N onsmoker * Medications: N one * Allergies: C ephalexin: rashno[Allergies Verified] Objective: * Vitals: W t:390lbs, Ht: 72 in, Temp:97.5F, HR:79/min, BMI:52.89Index, Pain scale:61-10, Oxygen sat %:98%, Ht-cm: 182.88 cm, Wt-k.9 kg. * Examination: P odiatry Examination: SKIN: s kin intact, n o sign of infection. MUSCULOSKELETAL: I am unable to reproduce the patient's pain with palpation, range of motion and strength testing. Gross motor strength appears to be equal and symmetric. No significant deformity of bilateral feet. NEUROLOGICAL: l ight touch sensation intact although hypersensitive along the superficial and deep peroneal nerves. Protective sensation is diminished on the plantar forefoot. VASCULAR: P edal pulses palpable, C apillaryrefill is brisk to toe, no calf pain on squeeze. X -rays: x-rays were obtained & reviewed today which demonstrate degenerative changes along the midfoot. No significant deformity. Cortices are intact and no evidence of recent trauma. Assessment: * Assessment: 1. L eft foot pain - M79.672 (Primary) 2 . N euralgia and neuritis, unspecified - M79.2 Plan: * Treatment: * Procedure Codes: * * Sign off status: Completed Visit Status: C HK (Check Out) true * Provider: Kika Anderson DPM, MS Date: 1 07/05/2023 Generated for Beto jane/Irma/eTransmitting on: 0 01/28/2025 04:41 PM EDT History and Physical Notes * Examination Category Sub-Category Detail Notes Category Not es Podiatry Examination SKIN: skin intact, no sign of infection X-rays: x-rays were obtained & reviewed today which demonstrate degenerative changes along the midfoot. No significant deformity. Cortices are intact and no evidence of recent trauma MUSCULOSKELETAL: I am unable to repro duce the patient's pain with palpation, range of motion and strength testing. Gross motor strength appears to be equal and symmetric. No significant deformity of bilateral feet NEUROLOGICAL: light touch sensatio n intact although hypersensitive along the superficial and deep peroneal nerves. Protective sensation is diminished on the plantar forefoot VASCULAR: Pedal pulses palpable, Capillary refill is brisk to toe, no calf pain on squeeze Consultation Request Notes Referral Date Referring Provider Referred Provider Not es 05/04/2024 Bassam Anderson [facility], Physical Therapy e valuation and treatment -- see attached order 05/04/2024 Bassam Anderson [facility], [facility] fabrizio rene radiculopathy 05/04/2024 Bassam Anderson , see attach ed order
[2025-01-28] VITALS (25 sets, daily range): BP systolic 107–138; BP diastolic 68–81; PULSE 78–96; TEMP 37.2; O2SAT 79–100; BMI 54.2
--- OUTSIDE RECORDS SUMMARY | 2025-01-28 16:42 | XMS_ITS | Clinical Summary ---
Author Organization [facility] Address [address] [place] [address] Care Team Providers Care Commercial Litigation Associate Name Role Phone Gaurav Wooten MD Primary Care Provider [phone] Pavan Bryant MD Unavailable [phone] Darlene Brito Unavailable Eugenia Davis Unavailable Allergies No known active allergies Medications DULoxetine (Cymbalta) [address] capsuleIndicati ons:Polyneuropa thy Take 1 capsule (30 mg) by mouth in the morning and 1 capsule (30 mg) before bedtime. Do not crush or chew.. 60 capsule 2 03/02/2024 Active pregabalin (Lyrica) 50 MG capsuleIndicati ons:Polyneuropa thy Take 1 capsule (50 mg) by mouth in the morning and 1 capsule (50 mg) before bedtime. 60 capsule 1 04/13/2024 Active Active Problems Problem Noted Date Diagnosed Date RLS (restless legs syndrome) 03/02/2024 Polyneuropathy 03/02/2024 Aftercare following right knee joint replacement surgery 05/08/2023 Difficulty walking 05/08/2023 Family History Medical History Relation Name Comments Cancer Mother Relation Name Status Comments Father Alive Mother Social History Tobacco Use Types Packs/Day Years Used Date Smoking Tobacco: Never Smokeless Tobacco: Never Sex and Gender Information Value Date Recorded Sex Assigned at Not on file Legal Sex Male 6:50 PM EDT Gender Identity Not on file Sexual Orientation Not on file Last Filed Vital Signs Vital Sign Reading Time Taken Comments Blood Pressure 142/84 04/13/2024 12:26 PM EST Pulse 88 04/13/2024 12:26 PM EST Temperature - - Respiratory Rate 16 04/13/2024 12:26 PM EST Oxygen Saturation 96% 04/13/2024 12:26 PM EST Inhaled Oxygen Concentration - - Weight 178 kg (392 lb) 03/02/2024 8:43 AM EDT Height 182.9 cm (6') 04/13/2024 12:26 PM EST Body Mass Index 53.16 03/02/2024 8:43 AM EDT Plan of Treatment Not on file Insurance [employer] Care Teams Commercial Litigation Associate Relationship Specialty Start Date End Date Gaurav Wooten MD PCP - General Family Medicine 04/11/24 Pavan Bryant MD Referring Physician Neurology 04/11/24 Darlene Brito PA Physician Pantograph Machine Set Up Operator Neurology 04/11/24 Eugenia Davis PA [address] [place] [address] Physician Pantograph Machine Set Up Operator Neurology 04/11/24
--- OUTSIDE RECORDS SUMMARY | 2025-01-28 16:42 | XMS_ITS | CCD ---
Author Organization [facility] CliniSymo Care Team Providers Care Rotary Drier Name Role Phone EBRAHEIM, ALEK Unavailable Unavailable [...] EBRAHEIM, ALEK Unavailable Unavailable DE Unavailable Unavailable CASABISABINEALUCIENW Unavailable Unavailable EBRAHEIM, ALEK Unavailable Unavailable EBRAHEIM, [...] Unavailable DO Bakari White Primary Care Provider [phone] DO Bakari White Attending Provider SALOMON Diehl Emergency Provider Unavailable Primary Care Provider Fatou Levy MD Primary Care Provider [phone] MALIKA, AJAY E Referring Unavailable MALIKA, AJAY E Admitting Unavailable MALIKA, AJAY E Attending Unavailable MALIKA, AJAY E Admitting Unavailable MALIKA, AJAY E Attending Unavailable BRANIECKI, BAKARI A Primary Care Unavailable SASHA CASTANEDA Consulting Unavailable MALIKA, AJAY E Admitting Unavailable MALIKA, AJAY E Attending Unavailable IVANIA MOSLEY Consulting Unavailable LUISFATOU Francis Primary Care Unavailable MALIKA, AJAY E Admitting Unavailable MALIKA, AJAY E Attending Unavailable BRANIECKI, BAKARI A Primary Care Unavailable MALIKA, AJAY E Admitting Unavailable MALIKA, AJAY E Attending Unavailable MALIKA, AJAY E Referring Unavailable NEVERAUSKAMaisha, TYLER Anand Attending Unavailab le BRANIECKI, BAKARI [...] Care Provider Je ELIZABETH, Bakari Attending Provider [phone] Je OCONNOR, Bakari A Primary Care Provider Elda Bryant MD Unavailable Daryl JOHNSON, Darlene Unavailable Eugenia Torres Unavailable DUSTY PATTERSON Attending Unavailable ALESSANDRA MURILLO Referring Unavailable LOUISA GUY Attending Unavailable ALESSANDRA MURILLO Referring Unavailable MARIO MENSAH Attending Unavailable DARLENE BRITO Attending Unavailable Virginia OCONNOR, Apolonia Leung Attending Unavailable Virginia OCONNOR, Swapnilrius Leung Attending Unavailable [place] OCONNOR, Andrius Madhu Attending Unavailable [place] OCONNOR, Andrius Leung Attending Unavailable Bakari White Admitting Unavailable Je, Bakari Attending Unavailable Je, Bakari Primary Care Unavailable Bakari White Primary Care Unavailable Bakari White Admitting Unavailable Bakari White Attending Unavailable Bakari White Primary Care Unavailable John Zamudio Attending Unavailab John Faria Admitting Unavailab brett White DO Bakari Primary Care Provider Reyna Do APRN Attending Provider Unavailable Unavailable Unavailable Allergies Allergy Classification Reported Allergen(s) Allergy Type Date of Onset Reaction(s) Facility (2 sources) cephalexin Drug Allergy 11-02-2017 AOF, RASH [facility] Repository (1 source) vancomycin; Translations: [VANCOMYCIN] Drug Allergy 11-20-2017 [facility] Repository (18 sources) Cephalexin Drug Allergy rash [facility] Other (1 source) Cephalexin Drug Allergy 07-19-2024 [facility] Repository Medications Current Medications Medication Drug Class(es) Dates Sig (Normalized) Sig (Original) acetaminophen 325 mg / HYDROcodone bitartrate 5 mg oral tablet (10 sources) Opioid Agonist Start: 06-13-2022 End: 06-20-2022 [...] 05 03January 29, 2022 April 19, 2024 3:16pm Start: 01-29-2022 take 1 tablet by arabella th every six hours Hydrocodone-Acetaminophen Active 1 TAB P O Q6H 12 January 29, 2022 [id number] 200 actuat albuterol 0.09 mg/actuat metered dose inhaler (5 sources) beta2-Adrenergic Agonist Start: 01-10-2025 take 1 puff(s) by inhalation every four to six hours as needed for wheezing Albuterol Sulfate 90 mcg/actuation HFA aerosol inhaler Active 2 PUFF INHALATION EVERY 4-6 HOURS as needed for shortness of breath or wheezing 8.5 January 10, 2025 12:00am Complies with drug therapy Start: 07-11-2024 End: 01-10-2025 Albuterol Sulfate 90 mcg/act uation HFA aerosol inhaler Discontinued 2 INH INHALATION EVERY 4-6 HOURS as needed for shortness of breath or wheezing 6.7 July 11, 2024 1:00am January 10, 2025 3:12pm Start: 05-04-2022 take 2 puff(s) by in halation every four hours as needed Albuterol Sulfate HFA 108 (90 Base) MCG/ACT 2 puffs as needed Inhalation every 4 hrs May, Active Start: 06-03-2021 Albuterol Sulfate 90 mcg/actuation HFA aerosol inhaler (2 sources) Start: 07-11-2024 Albuterol Sulfate 90 mcg/actuation HFA aerosol inhaler Active 2 INH INHALATION EVERY 4-6 HOURS as needed for shortness of breath or wheezing 6.7 July 11, 2024 12:00am benzocaine 6 mg / menthol 10 mg oral lozenge (1 source) Standardized Chemical Allergen Start: 06-12-2022 Benzocaine-Menthol (CEPACOL) 1 lozenge benzonatate 200 mg oral capsule (3 sources) Non-narcotic Antitussive Start: 07-15-2024 End: 01-10-2025 take 1 capsule by mouth three times daily as needed for cough Benzonatate 200 mg capsule Active 200 MG PO Three times daily as needed for cough 30 10 January 10, 2025 12:00am Complies with drug therapy 24 hr buPROPion hydrochloride 300 mg extended release oral tablet (1 source) Aminoketone Start: 01-10-2025 take 1 tablet by mouth every twenty-four hours Bupropion Hcl 300 mg tablet extended release 24 hr Active MG PO January 10, 2025 12:00am Complies with drug therapy DULoxetine 30 mg delayed release oral capsule [...] spray(s) by inhalation three times daily Ipratropium [place] 0.06 % 2 sprays in each nostril Inhalation Three times a day for 30 day(s) Active predniSONE 20 mg oral tablet (1 source) Start: 01-10-2025 take 2 tablets by mouth once daily Prednisone 20 mg tablet Active 20 MG PO .COMPLEX January 10, 2025 12:00am Take 2 tabs po daily x 5 days Complies with drug therapy pregabalin 50 mg oral capsule (6 sources) [...] 06-09-2022 acetaminophen (TYLENOL) tabl et 650 mg azithromycin 250 mg oral tablet (3 sources) Macrolide Antimicrobial Start: 07-19-2024 End: 01-10-2025 Azithromycin (Zithromax) 250 mg tablet Discontinued 0 PO .COMPLEX 6 July 19, 2024 1:00am January 10, 2025 3:01pm For 250 mg dose pack: take 500 mg today (day 1), then 250 mg for 4 days (days 2-5) PO Start: 05-23-2022 Zithromax Z-Pa k 250 MG 2 tablets on the first day, then 1 tablet daily for 4 days Orally Once a day for 5 day(s) May, Active calcium chloride 0.0014 meq/ ml / potassium [...] for pain 180 90 August 27, 2023 10:56am April 19, 2024 3:16pm Start: 01-29-2022 take 200 mg by mouth [...] Not-Taking/PRN cyclobenzaprine hydrochloride 10 mg oral tablet (9 sources) Muscle Relaxant Start: 01-29-2022 End: 04-19-2024 take 1 tablet by mouth three times daily as needed for pain Cyclobenzaprine 10 mg tablet Discontinued 10 MG PO Three times daily as needed for Pain January 29, 2022 12:00am April 19, 2024 3:16pm Start: 01-29-2022 take 10 mg by mouth [...] PO per package directions July 11, 2024 1:00am July 19, 2024 8:39am PO PER PKG DIR Start: 06-03-2021 Start: 2017 Depo-Medrol 40 mg Dec, 1 mL Start: 12-08-2016 Depo-Medrol 40 mg Nov, 1 mL naproxen 500 mg oral tablet (8 sources) Nonsteroidal Anti-inflammatory Drug Start: 01-29-2022 End: 08-27-2023 take 1 tablet by mouth twice daily as needed for pain Naproxen (Naprosyn) 500 mg tablet Discontinued 500 MG PO Twice daily as needed for pain January 29, 2022 12:00am August 27, 2023 10:57am Start: 01-29-2022 take 1 tablet by arabella twice daily Naproxen (Naprosyn) 500 mg tablet Active 500 MG PO Twice daily January 29, 2022 12:00am oseltamivir 75 mg oral capsule (3 sources) Neuraminidase Inhibitor Start: 07-11-2024 End: 07-19-2024 take 1 capsule by mouth twice daily Oseltamivir (Tamiflu) 75 mg capsule Discontinued 75 MG PO Twice daily 03 05July 11, 2024 1:00am July 19, 2024 8:39am 5 ml sodium chloride 9 mg/ml injection [...] Post-op tamsulosin hydrochloride 0.4 mg oral capsule (8 sources) alpha-Adrenergic Annette Start: 05-27-2024 End: 07-11-2024 take 2 capsules by mouth once daily Tamsulosin (Flomax) 0.4 mg capsule Discontinued 0.8 MG PO Daily May 27, 2024 10:04am July 11, 2024 4:28pm Start: 04-19-2024 End: 05-27-2024 take 1 capsule by mouth once daily Tamsulosin (Flomax) 0.4 mg capsule Discontinued 0.4 MG PO Daily April 19, 2024 1:00am May 27, 2024 10:04am tranexamic acid 650 mg oral tablet (3 [...] Translations: [Other iron deficiency anemias] 08-27-2023 Episodic Disorders of lipid metabolism (20 sources) Mixed hyperlipidemia; Translations: [Mixed hyperlipidemia] Onset: 04-13-2024 Chronic Essential hypertension (1 source) Essential (primary) hypertension; Translations: [ESSENTIAL (PRIMARY) HYPERTENSION] Onset: 11-02-2017 Chronic Gout and other crystal arthropathies (17 sources) Gout; Translations: [Gout, unspecified] 08-27-2023 Chronic Hyperplasia of prostate (10 sources) Benign prostatic hyperplasia; Translations: [Benign prostatic [...] Onset: 02-24-2024 Episodic Other connective tissue disease (2 sources) Painful legs and moving toes; Translations: [Pain in left leg] 04-13-2024 Episodic Other connective tissue disease (2 sources) Other symptoms and signs involving the musculoskeletal system; Translations: [Other musculoskeletal symptoms referable to limbs] 06-29-2024 Episodic Other hereditary and degenerative nervous system conditions (20 sources) Restless legs; Translations: [Restless legs syndrome] [...] Chronic Other nutritional; endocrine; and metabolic disorders (6 sources) Obesity caused by energy imbalance; Translations: [...] apnea (adult) (pediatric)] Onset: 11-02-2017 Chronic Unclassified (2 sources) Sleep apnea, unspecified; Translations: [...] [METHICILLIN RESIS STAPH INFCT CAUSING DISEASES CLASSD ELSWHR] Onset: 11-02-2017 Episodic Chronic obstructive pulmonary disease and bronchiectasis (1 source) Bronchitis, not specified as acute or chronic; Translations: [Bronchitis, not specified as acute or chronic] Onset: 05-29-2023 Episodic Deficiency and other anemia (6 sources) Other iron deficiency anemias; Translations: [Other specified iron deficiency anemias] Onset: 04-13-2024 Episodic Other aftercare (1 source) 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; Translations: [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 CURRNT USE ANTICOAGULANTS] Onset: 11-02-2017 Episodic Other connective tissue disease (2 sources) Other infective bursitis, right knee; Translations: [OTHER INFECTIVE BURSITIS, RIGHT KNEE] Onset: 11-02-2017 Episodic Other connective tissue disease (4 sources) Other bursitis of knee, right knee; Translations: [OTHER BURSITIS OF KNEE, RIGHT KNEE] Onset: 11-02-2017 Episodic Other connective tissue disease (4 sources) Pain in left foot; Translations: [Pain in limb] Onset: 04-19-2024 04-19-2024 Episodic Other hematologic conditions (1 source) Elevated [...] SUBQ TISSUE UNS] Onset: 11-02-2017 Episodic Unclassified (6 sources) Elevated C-reactive protein (CRP); Translations: [Encounter for screening for malignant neoplasm of prostate] Onset: 11-09-2017 Episodic Unclassified (3 sources) Low back pain, unspecified M54.50 Onset: 01-08-2022 Resolved: 01-23-2022 Results Test Name Value Interpretation Reference Range Facility Influenza A virus antibody t iter by complement fixationon 07-11-2024 FLUAV Ab CF (S) [Titer] Influenza A virus antibody titer by complement fixation [facility] Influenza virus B Ab [Titer] in Serum by Complement fixationon 07-11-2024 FLUBV Ab CF (S) [Titer] Influenza virus B Ab [Titer] in Serum by Complement fixation [facility] X-ray reportOrdered By: Chaparrita Shepherd on 04-19-2024 Study report [facility] [address] [place] [id number] XRay Report Signed Patient: Júnior Rowland MR#: [id number] : 1960 Acct:[id number] Age/Sex: 64 / M ADM Date: 4 Loc: [facility] Room: Type: [facility] Attending Dr: Bakari White DO Copies to: [...] Dianne Shepherd M.D.04/19/2024 4:20 PM Dictation Location: [place] [address] Transcribed By: [facility] 04/19/24 1620 Dictated By: Dianne Shepherd MD 04/19/24 1618 Signed By: 04/19/24 1620 [facility] Work Phone: XR foot LT min 3V*on 024 XR foot LT min 3V* [facility] [address] [place] [id number] XRay Report Signed Patient: Júnior Rowland MR#: [id number] : 1960 Acct:[id number] Age/Sex: 64 / M ADM Date: 04/19/24 Loc: [facility] Room: Type: [facility] Attending Dr: Bakari White DO Copies to: [...] Dianne Shepherd M.D.04/19/2024 4:20 PM Dictation Location: [place] [address] Transcribed By: [facility] 04/19/24 1620 Dictated By: Dianne Shepherd MD 04/19/24 1618 Signed By: 04/19/24 1620 Normal [facility] Alanine aminotransferase [En zymatic activity/volume] in Serum or PlasmaOrdered By: Bakari White on 04-13-2024 ALT [Catalytic activity/Vol] Alanine aminotransferase [Enzymatic activity/volume] in Serum or Plasma 7-52 [facility] Albumin [Mass/volume] in Ser um or Plasma by Bromocresol green (BCG) dye binding methoOrdered By: Bakari White on 04-13-2024 Albumin BCG dye [Mass/Vol] Albumin [Mass/volume] in Serum or Plasma by Bromocresol green (BCG) dye binding metho 3.5-5.7 [facility] Alkaline phosphatase [Enzyma tic activity/volume] in Serum or PlasmaOrdered By: Bakari White on 04-13-2024 ALP [Catalytic activity/Vol] Alkaline phosphatase [Enzymatic activity/volume] in Serum or Plasma 34-104 [facility] Aspartate aminotransferase [ Enzymatic activity/volume] in Serum or PlasmaOrdered By: Bakari White on 04-13-2024 AST [Catalytic activity/Vol] Aspartate aminotransferase [Enzymatic activity/volume] in Serum or Plasma 13-39 [facility] Basophils Auto (Bld) [#/Vol] Ordered By: Bakari White on 04-13-2024 Basophils (Bld) [#/Vol] Automated basophil count 0.0-0.2 [facility] Basophils/100 WBC Auto (Bld) Ordered By: Bakari White on 04-13-2024 Basophils/100 WBC (Bld) Automated basophil % . [facility] Bilirubin.total [Mass/volume ] in Serum or PlasmaOrdered By: Bakari White on 04-13-2024 Bilirubin [Mass/Vol] Bilirubin.total [Mass/volume] in Serum or Plasma 0.3-1.0 [facility] Calcium [Mass/volume] in Ser um or PlasmaOrdered By: Bakari White on 04-13-2024 Calcium [Mass/Vol] Calcium [Mass/volume ] in Serum or Plasma 8.6-10.3 [facility] Carbon dioxide, total [Moles /volume] in Serum or PlasmaOrdered By: Bakari White on 04-13-2024 CO2 [Moles/Vol] Carbon dioxide, tota l [Moles/volume] in Serum or Plasma High 21.0-31.0 [facility] Chloride [Moles/volume] in S tobias or PlasmaOrdered By: Bakari White on 04-13-2024 Chloride [Moles/Vol] Chloride [Moles/vol ume] in Serum or Plasma 98-107 [facility] Cholesterol [Mass/volume] in Serum or PlasmaOrdered By: Bakari White on 04-13-2024 Cholesterol [Mass/Vol] Cholesterol [Mass/volume] in Serum or Plasma 140-200 [facility] Comment on above: Chol less than 200 m g/dl low riskChol 201-239 mg/dl borderline riskChol 240 mg/dl and greater high risk Cholesterol in HDL [Mass/vol ume] in Serum or PlasmaOrdered By: Bakari White on 04-13-2024 Cholesterol in HDL [Mass/Vol] Serum or plasma high density lipoprotein (HDL) cholesterol measurement 23-92 [facility] Comment on above: HDL CHOL ATP-III CLA SSIFICATION Cardiovascular RiskHDL > or equal to 60 mg/dL LOWHDL < 40 mg/dL HIGH Cholesterol in LDL Calc [Mas s/Vol]Ordered By: Bakari White on 04-13-2024 Cholesterol in LDL [Mass/Vol] Cholesterol in LDL [Mass/volume] in Serum or Plasma by calculation High 0-100 [facility] Comment on above: LDL ATP III CLASSIFI CATIONLDL less than 100 mg/dL OptimalLDL 100-129 mg/dL Near or above optimalLDL 130-159 mg/dL Borderline highLDL 160-189 mg/dL HighLDL greater than 189 mg/dL Very high Cholesterol in VLDL Calc [Ma ss/Vol]Ordered By: Bakari White on 04-13-2024 Cholesterol in VLDL [Mass/Vol] Cholesterol in VLDL [Mass/volume] in Serum or Plasma by calculation [facility] Complete Blood Count Auto Di ffon 04-13-2024 Basophils (Bld) [#/Vol] 0.1 10*3/uL Normal 0.0-0.2 [facility] Comment on above: Order Comment: Reaso n for Exam Morbid (severe) obesity due to excess calories;Body mass ind Result Comment: PERF ORMED BY: [place] [address] PATHOLOGIST [employer]ALNUT DEHYDRATOR OPERATOR CHARLY JOSHI M.D. Performed By: #### P SAS, CMP, CBC, TSH3 wRFLX, LIPID #### [facility] [address] [place] [address] [place] Basophils/100 WBC (Bld) 1.0 % Normal . [facility] Comment on above: Order Comment: Reaso n for Exam Morbid (severe) obesity due to excess calories;Body mass ind Performed By: #### P SAS, CMP, CBC, TSH3 wRFLX, LIPID #### [facility] [address] [place] [id number] [place] Eosinophils (Bld) [#/Vol] 0.2 10*3/uL Normal 0.0-0.45 [facility] Comment on above: Order Comment: Reaso n for Exam Morbid (severe) obesity due to excess calories;Body mass ind Performed By: #### P SAS, CMP, CBC, TSH3 wRFLX, LIPID #### [address] Eosinophils/100 WBC (Bld) 3.3 % Normal . [facility] Comment on above: Order Comment: Reaso n for Exam Morbid (severe) obesity due to excess calories;Body mass ind Performed By: #### P SAS, CMP, CBC, TSH3 wRFLX, LIPID #### [address] Erythrocyte distribution width (RBC) [Ratio] 14.1 % Normal 12.0-14.8 [facility] Comment on above: Order Comment: Reaso n for Exam Morbid (severe) obesity due to excess calories;Body mass ind Performed By: #### P SAS, CMP, CBC, TSH3 wRFLX, LIPID #### [address] Hematocrit (Bld) [Volume fraction] 39.4 % Normal 38.8-50.0 [facility] Comment on above: Order Comment: Reaso n for Exam Morbid (severe) obesity due to excess calories;Body mass ind Performed By: #### P SAS, CMP, CBC, TSH3 wRFLX, LIPID #### [address] Hemoglobin (Bld) [Mass/Vol] 13.1 g/dL Normal 13.0-17.0 [facility] Comment on above: Order Comment: Reaso n for Exam Morbid (severe) obesity due to excess calories;Body mass ind Performed By: #### P SAS, CMP, CBC, TSH3 wRFLX, LIPID #### [address] Lymphocytes (Bld) [#/Vol] 1.1 10*3/uL Normal 1.00-4.8 [facility] Comment on above: Order Comment: Reaso n for Exam Morbid (severe) obesity due to excess calories;Body mass ind Performed By: #### P SAS, CMP, CBC, TSH3 wRFLX, LIPID #### [address] Lymphocytes/100 WBC (Bld) 18.9 % Normal . [facility] Comment on above: Order Comment: Reaso n for Exam Morbid (severe) obesity due to excess calories;Body mass ind Performed By: #### P SAS, CMP, CBC, TSH3 wRFLX, LIPID #### [address] MCH (RBC) [Entitic mass] 28.4 pg Normal 27.5-35.2 [facility] Comment on above: Order Comment: Reaso n for Exam Morbid (severe) obesity due to excess calories;Body mass ind Performed By: #### P SAS, CMP, CBC, TSH3 wRFLX, LIPID #### [address] MCV (RBC) [Entitic vol] 85.6 fL Normal 83.5-101 [facility] Comment on above: Order Comment: Reaso n for Exam Morbid (severe) obesity due to excess calories;Body mass ind Performed By: #### P SAS, CMP, CBC, TSH3 wRFLX, LIPID #### [address] Mean Corpuscular HGB Conc 33.1 g/dL Normal 32.5-35.6 [facility] Comment on above: Order Comment: Reaso n for Exam Morbid (severe) obesity due to excess calories;Body mass ind Performed By: #### P SAS, CMP, CBC, TSH3 wRFLX, LIPID #### [address] Monocytes (Bld) [#/Vol] 0.4 10*3/uL Normal 0.0-0.8 [facility] Comment on above: Order Comment: Reaso n for Exam Morbid (severe) obesity due to excess calories;Body mass ind Performed By: #### P SAS, CMP, CBC, TSH3 wRFLX, LIPID #### [place] [address] [place] Monocytes/100 WBC (Bld) 6.2 % Normal . [facility] Comment on above: Order Comment: Reaso n for Exam Morbid (severe) obesity due to excess calories;Body mass ind Performed By: #### P SAS, CMP, CBC, TSH3 wRFLX, LIPID #### [facility] [address] Neutrophils (Bld) [#/Vol] 4.1 10*3/uL Normal 1.8-7.7 [facility] Comment on above: Order Comment: Reaso n for Exam Morbid (severe) obesity due to excess calories;Body mass ind Performed By: #### P SAS, CMP, CBC, TSH3 wRFLX, LIPID #### [facility] [address] Neutrophils/100 WBC (Bld) 70.6 % Normal . [facility] Comment on above: Order Comment: Reaso n for Exam Morbid (severe) obesity due to excess calories;Body mass ind Performed By: #### P SAS, CMP, CBC, TSH3 wRFLX, LIPID #### [facility] [address] NRBC% 0.2 /100{WBC} Normal 0-0.5 [facility] Comment on above: Order Comment: Reaso n for Exam Morbid (severe) obesity due to excess calories;Body mass ind Performed By: #### P SAS, CMP, CBC, TSH3 wRFLX, LIPID #### [facility] [address] [place] [address] [place] Platelet mean volume (Bld) [Entitic vol] 8.2 fL Normal 6.6-10.1 [facility] Comment on above: Order Comment: Reaso n for Exam Morbid (severe) obesity due to excess calories;Body mass ind Performed By: #### P SAS, CMP, CBC, TSH3 wRFLX, LIPID #### [facility] [address] [place] [address] [place] Platelets (Bld) [#/Vol] 250 10*3/uL Normal 150-450 [facility] Comment on above: Order Comment: Reaso n for Exam Morbid (severe) obesity due to excess calories;Body mass ind Performed By: #### P SAS, CMP, CBC, TSH3 wRFLX, LIPID #### [address] RBC (Bld) [#/Vol] 4.60 10*6/uL Normal 3.90-5.60 [facility] Comment on above: Order Comment: Reaso n for Exam Morbid (severe) obesity due to excess calories;Body mass ind Performed By: #### P SAS, CMP, CBC, TSH3 wRFLX, LIPID #### [address] WBC (Bld) [#/Vol] 5.8 10*3/uL Normal 4.1-10.5 [facility] Comment on above: Order Comment: Reaso n for Exam Morbid (severe) obesity due to excess calories;Body mass ind Performed By: #### P SAS, CMP, CBC, TSH3 wRFLX, LIPID #### [address] Comprehensive Metabolic Pane [facility] 04-13-2024 Albumin [Mass/Vol] 4.3 g/dL Normal 3.5-5.7 [facility] Comment on above: Order Comment: Reaso n for Exam Morbid (severe) obesity due to excess calories;Body mass ind Performed By: #### P SAS, CMP, CBC, TSH3 wRFLX, LIPID #### [address] Albumin/Globulin [Mass ratio] 1.3 {ratio} Normal [facility] Comment on above: Order Comment: Reaso n for Exam Morbid (severe) obesity due to excess calories;Body mass ind Performed By: #### P SAS, CMP, CBC, TSH3 wRFLX, LIPID #### [address] ALP [Catalytic activity/Vol] 56 U/L Normal 34-104 [facility] Comment on above: Order Comment: Reaso n for Exam Morbid (severe) obesity due to excess calories;Body mass ind Performed By: #### P SAS, CMP, CBC, TSH3 wRFLX, LIPID #### [facility] [address] ALT [Catalytic activity/Vol] 19 U/L Normal 7-52 [facility] Comment on above: Order Comment: Reaso n for Exam Morbid (severe) obesity due to excess calories;Body mass ind Performed By: #### P SAS, CMP, CBC, TSH3 wRFLX, LIPID #### [facility] [address] Anion gap [Moles/Vol] 11.9 mmol/L Normal 6.0-15.0 [facility] Comment on above: Order Comment: Reaso n for Exam Morbid (severe) obesity due to excess calories;Body mass ind Performed By: #### P SAS, CMP, CBC, TSH3 wRFLX, LIPID #### [facility] [address] [place] [address] AST [Catalytic activity/Vol] 19 U/L Normal 13-39 [facility] Comment on above: Order Comment: Reaso n for Exam Morbid (severe) obesity due to excess calories;Body mass ind Performed By: #### P SAS, CMP, CBC, TSH3 wRFLX, LIPID #### [facility] [address] [place] [address] [place] Bilirubin [Mass/Vol] 0.5 mg/dL Normal 0.3-1.0 [facility] Comment on above: Order Comment: Reaso n for Exam Morbid (severe) obesity due to excess calories;Body mass ind Performed By: #### P SAS, CMP, CBC, TSH3 wRFLX, LIPID #### [facility] [address] [place], [place] [id number] [place] Calcium [Mass/Vol] 9.3 mg/dL Normal 8.6-10.3 [facility] Comment on above: Order Comment: Reaso n for Exam Morbid (severe) obesity due to excess calories;Body mass ind Performed By: #### P SAS, CMP, CBC, TSH3 wRFLX, LIPID #### [facility] [address] [place], [place] [id number] [facility] Chloride [Moles/Vol] 102 mmol/L Normal 98-107 [facility] Comment on above: Order Comment: Reaso n for Exam Morbid (severe) obesity due to excess calories;Body mass ind Performed By: #### P SAS, CMP, CBC, TSH3 wRFLX, LIPID #### [facility] [address] CO2 [Moles/Vol] 31.6 mmol/L High 21.0-31.0 [facility] Comment on above: Order Comment: Reaso n for Exam Morbid (severe) obesity due to excess calories;Body mass ind Performed By: #### P SAS, CMP, CBC, TSH3 wRFLX, LIPID #### [address] Creatinine [Mass/Vol] 0.86 mg/dL Normal 0.70-1.30 [facility] Comment on above: Order Comment: Reaso n for Exam Morbid (severe) obesity due to excess calories;Body mass ind Performed By: #### P SAS, CMP, CBC, TSH3 wRFLX, LIPID #### [address] GFR/1.73 sq M.predicted MDRD (S/P/Bld) [Vol rate/Area] mL/min/{1.73_m2} Normal [facility] Comment on above: Order Comment: Reaso n for Exam Morbid (severe) obesity due to excess calories;Body mass ind Performed By: #### P SAS, CMP, CBC, TSH3 wRFLX, LIPID #### [address] Globulin (S) [Mass/Vol] 3.4 g/dL Normal [facility] Comment on above: Order Comment: Reaso n for Exam Morbid (severe) obesity due to excess calories;Body mass ind Performed By: #### P SAS, CMP, CBC, TSH3 wRFLX, LIPID #### [facility] [address] Glucose [Mass/Vol] 98 mg/dL Normal 70-100 [facility] Comment on above: Order Comment: Reaso n for Exam Morbid (severe) obesity due to excess calories;Body mass ind Result Comment: [place] Glucose Reference Range is dependent on time and content of last meal. Glucose of more than 200 mg/dL in a nonstressed, ambulatory subject supports the diagnosis of Diabetes Mellitus. ADA recommended reference range Performed By: #### P SAS, CMP, CBC, TSH3 wRFLX, LIPID #### [facility] [address] Potassium [Moles/Vol] 4.5 mmol/L Normal 3.5-5.1 [facility] Comment on above: Order Comment: Reaso n for Exam Morbid (severe) obesity due to excess calories;Body mass ind Performed By: #### P SAS, CMP, CBC, TSH3 wRFLX, LIPID #### [facility] [address] [place] [address] [place] Protein [Mass/Vol] 7.7 g/dL Normal 6.4-8.9 [facility] Comment on above: Order Comment: Reaso n for Exam Morbid (severe) obesity due to excess calories;Body mass ind Performed By: #### P SAS, CMP, CBC, TSH3 wRFLX, LIPID #### [facility] [address] [place] [id number] [place] Sodium [Moles/Vol] 141 mmol/L Normal 136-145 [facility] Comment on above: Order Comment: Reaso n for Exam Morbid (severe) obesity due to excess calories;Body mass ind Performed By: #### P SAS, CMP, CBC, TSH3 wRFLX, LIPID #### [facility] [address] [place] [id number] [place] Urea nitrogen [Mass/Vol] 18 mg/dL Normal 7-25 [facility] Comment on above: Order Comment: Reaso n for Exam Morbid (severe) obesity due to excess calories;Body mass ind Performed By: #### P SAS, CMP, CBC, TSH3 wRFLX, LIPID #### [facility] [address] [place] [id number] [place] Creatinine [Mass/volume] in Serum or PlasmaOrdered By: Bakari White on 04-13-2024 Creatinine [Mass/Vol] Creatinine [Mass/v olume] in Serum or Plasma 0.70-1.30 [facility] Eosinophils Auto (Bld) [#/Vo l]Ordered By: Bakari White on 04-13-2024 Eosinophils (Bld) [#/Vol] Automated eosinophil count 0.0-0.45 [facility] Eosinophils/100 WBC Auto (Bl d)Ordered By: Bakari White on 04-13-2024 Eosinophils/100 WBC (Bld) Automated eosinophil % . [facility] Erythrocyte distribution wid th Auto (RBC) [Ratio]Ordered By: Bakari White on 04-13-2024 Erythrocyte distribution width (RBC) [Ratio] Erythrocyte distribution width [Ratio] by Automated count 12.0-14.8 [facility] Globulin Calc (S) [Mass/Vol] Ordered By: Bakari White on 04-13-2024 Globulin (S) [Mass/Vol] Serum globulin measurement by calculation (mass/volume) [facility] Glucose [Mass/volume] in Ser um or PlasmaOrdered By: Bakari White on 04-13-2024 Glucose [Mass/Vol] Glucose [Mass/volume ] in Serum or Plasma 70-100 [facility] Comment on above: ADA recommended refe rence rangeRandom Glucose Reference Range is dependent on time and content of last meal. Glucose of more than 200 mg/dL in a nonstressed, ambulatory subject supports the diagnosis of Diabetes Mellitus. Hematocrit Auto (Bld) [Volum e fraction]Ordered By: Bakari White on 04-13-2024 Hematocrit (Bld) [Volume fraction] Hematocrit [Volume Fraction] of Blood by Automated count 38.8-50.0 [facility] Hemoglobin [Mass/volume] in BloodOrdered By: Bakari White on 04-13-2024 Hemoglobin (Bld) [Mass/Vol] Hemoglobin [Mass/volume] in Blood 13.0-17.0 [facility] Leukocytes [#/volume] correc maggy for nucleated erythrocytes in Blood by Automated counOrdered By: Bakari White on 04-13-2024 WBC corrected for nucl RBC Auto (Bld) [#/Vol] Leukocytes [#/volume] corrected for nucleated erythrocytes in Blood by Automated coun 4.1-10.5 [facility] Lipid Panelon 04-13-2024 Cholesterol [Mass/Vol] 192 mg/dL Normal 140-200 [facility] Comment on above: Order Comment: Reaso n for Exam Morbid (severe) obesity due to excess calories;Body mass ind Result Comment: Chol less than 200 mg/dl low risk Chol 201-239 mg/dl borderline risk Chol 240 mg/dl and greater high risk Performed By: #### P SAS, CMP, CBC, TSH3 wRFLX, LIPID #### [facility] [address] [place] [address] [place] Cholesterol in HDL [Mass/Vol] 47 mg/dL Normal 23-92 [facility] Comment on above: Order Comment: Reaso n for Exam Morbid (severe) obesity due to excess calories;Body mass ind Result Comment: HDL CHOL ATP-III CLASSIFICATION Cardiovascular Risk HDL > or equal to 60 mg/dL LOW HDL < 40 mg/dL HIGH Performed By: #### P SAS, CMP, CBC, TSH3 wRFLX, LIPID #### [facility] [address] [place] [address] [place] Cholesterol.total/Chol esterol in HDL [Mass ratio] 4.1 {ratio} Normal <5.0 [facility] Comment on above: Order Comment: Reaso n for Exam Morbid (severe) obesity due to excess calories;Body mass ind Performed By: #### P SAS, CMP, CBC, TSH3 wRFLX, LIPID #### [facility] [address] [place] [address] [place] LDL Cholesterol,Calculated 116 mg/dL High 0-100 [facility] Comment on above: Order Comment: [...] SAS, CMP, CBC, TSH3 wRFLX, LIPID #### [facility] [address] [place] [address] [place] Triglyceride w/Reflex 147 mg/dL Normal 0-149 [facility] Comment on above: Order Comment: [...] SAS, CMP, CBC, TSH3 wRFLX, LIPID #### [facility] [address] VLDL CHOLESTEROL 29 mg/dL Normal [facility] Comment on above: Order Comment: Reaso n for Exam Morbid (severe) obesity due to excess calories;Body mass ind Performed By: #### P SAS, CMP, CBC, TSH3 wRFLX, LIPID #### [facility] [address] Lymphocytes Auto (Bld) [#/Vo l]Ordered By: Bakari White on 04-13-2024 Lymphocytes (Bld) [#/Vol] Lymphocytes [#/volume] in Blood by Automated count 1.00-4.8 [facility] Lymphocytes/100 WBC Auto (Bl d)Ordered By: Bakari White on 04-13-2024 Lymphocytes/100 WBC (Bld) Lymphocytes/100 leukocytes in Blood by Automated count . [facility] MCH Auto (RBC) [Entitic mass ]Ordered By: Bakari White on 04-13-2024 MCH (RBC) [Entitic mass] MCH [Entitic mass] by Automated count 27.5-35.2 [facility] MCHC Auto (RBC) [Mass/Vol]Or dered By: Bakari White on 04-13-2024 MCHC (RBC) [Mass/Vol] MCHC [Mass/volume] by Automated count 32.5-35.6 [facility] MCV Auto (RBC) [Entitic vol] Ordered By: Bakari White on 04-13-2024 MCV (RBC) [Entitic vol] MCV [Entitic volume] by Automated count 83.5-101 [facility] Monocytes Auto (Bld) [#/Vol] Ordered By: Bakari White on 04-13-2024 Monocytes (Bld) [#/Vol] Automated blood monocyte count 0.0-0.8 [facility] Monocytes/100 WBC Auto (Bld) Ordered By: Bakari White on 04-13-2024 Monocytes/100 WBC (Bld) Automated monocyte % . [facility] Neutrophils Auto (Bld) [#/Vo l]Ordered By: Bakari White on 04-13-2024 Neutrophils (Bld) [#/Vol] Neutrophils [#/volume] in Blood by Automated count 1.8-7.7 [facility] Neutrophils/100 WBC Auto (Bl d)Ordered By: Bakari White on 04-13-2024 Neutrophils/100 WBC (Bld) Automated neutrophil % . [facility] No Panel InformationOrdered By: Bakari White on 04-13-2024 Estimated GFR (CKD-EPI) > 60.0 mL/Min [facility] Creatinine Clearance (Chem N/A [facility] Nucleated erythrocytes [Pres ence] in Blood by Automated countOrdered By: Bakari White on 04-13-2024 Nucleated RBC Auto Ql (Bld) Nucleated erythrocytes [Presence] in Blood by Automated count 0-0.5 [facility] PSA Screen (Yearly Only)on 06-13-2023 PSA Screen (Yearly Only) 0.180 ng/mL Normal 0.000-4.000 [facility] Comment on above: Order Comment: Reaso n for Exam Morbid (severe) obesity due to excess calories;Body mass ind Result Comment: Seri al tumor marker results determined by assays using different manufacturers or methods may not be comparable. [facility] aquatics manager and method: [employer] DXI, CHEMILUMINESCENT IMMUNOASSAY. PERFORMED BY: [place] [address] PATHOLOGIST WALNUT DEHYDRATOR OPERATOR CHARLY JOSHI M.D. Performed By: #### P SAS, CMP, CBC, TSH3 wRFLX, LIPID #### [address] Platelet mean volume Auto (B ld) [Entitic vol]Ordered By: Bakari White on 04-13-2024 Platelet mean volume (Bld) [Entitic vol] Platelet mean volume [Entitic volume] in Blood by Automated count 6.6-10.1 [facility] Platelets Auto (Bld) [#/Vol] Ordered By: Bakari White on 04-13-2024 Platelets (Bld) [#/Vol] Platelets [#/volume] in Blood by Automated count 150-450 [facility] Potassium [Moles/volume] in Serum or PlasmaOrdered By: Bakari White on 04-13-2024 Potassium [Moles/Vol] Potassium [Moles/v olume] in Serum or Plasma 3.5-5.1 [facility] Prostate specific Ag [Mass/v olume] in Serum or PlasmaOrdered By: Bakari White on 04-13-2024 Prostate specific Ag [Mass/Vol] Prostate specific Ag [Mass/volume] in Serum or Plasma 0.000-4.000 [facility] Comment on above: Serial tumor marker results determined by assays using different manufacturers or methods may not be comparable.[facility] aquatics manager and method:[employer] DXI, CHEMILUMINESCENT IMMUNOASSAY. Protein [Mass/volume] in Ser um or PlasmaOrdered By: Bakari White on 04-13-2024 Protein [Mass/Vol] Protein [Mass/volume ] in Serum or Plasma 6.4-8.9 [facility] RBC Auto (Bld) [#/Vol]Ordere d By: Bakari White on 04-13-2024 RBC (Bld) [#/Vol] Erythrocytes [#/volu me] in Blood by Automated count 3.90-5.60 [facility] Serum or plasma albumin/glob ulin mass ratioOrdered By: Bakari White on 04-13-2024 Albumin/Globulin [Mass ratio] Serum or plasma albumin/globulin mass ratio [facility] Serum or plasma anion gap de terminationOrdered By: Bakari White on 04-13-2024 Anion gap [Moles/Vol] Serum or plasma an ion gap determination 6.0-15.0 [facility] Serum or plasma total choles terol/high density lipoprotein (HDL) cholesterol mass ratOrdered By: Bakari White on 04-13-2024 Cholesterol.total/Chol esterol in HDL [Mass ratio] Serum or plasma total cholesterol/high density lipoprotein (HDL) cholesterol mass rat <5.0 [facility] Sodium [Moles/volume] in Ser um or PlasmaOrdered By: Bakari White on 04-13-2024 Sodium [Moles/Vol] Sodium [Moles/volume ] in Serum or Plasma 136-145 [facility] Thyroid Stim Hormone w/Rflxo n 04-13-2024 Thyroid Stim Hormone w/Rflx 2.29 u[iU]/mL Normal 0.45-5.33 [facility] Comment on above: Order Comment: Reaso n for Exam Morbid (severe) obesity due to excess calories;Body mass ind Result Comment: PERF ORMED BY: [place] [address] PATHOLOGIST WALNUT DEHYDRATOR OPERATOR CHARLY JOSHI M.D. Performed By: #### P SAS, CMP, CBC, TSH3 wRFLX, LIPID #### [address] Thyrotropin [Units/volume] i n Serum or PlasmaOrdered By: Bakari White on 04-13-2024 TSH Qn Thyrotropin [Units/volume] in Serum or Plasma 0.45-5.33 [facility] Triglyceride [Mass/volume] i n Serum or PlasmaOrdered By: Bakari White on 04-13-2024 Triglyceride [Mass/Vol] Triglyceride [Mass/volume] in Serum or Plasma 0-149 [facility] Comment on above: TRIG ATP III CLASSIF ICATIONTRIG less than 150 mg/dL NormalTRIG 150-199 mg/dL Borderline highTRIG 200-500 mg/dL High TRIG greater than 500 mg/dL Very highStandard traceable to the Center for Disease Conrtrol and Prevention (CDC) test method. Urea nitrogen [Mass/volume] in Serum or PlasmaOrdered By: Bakari White on 04-13-2024 Urea nitrogen [Mass/Vol] Urea nitrogen [Mass/volume] in Serum or Plasma 7-25 [facility] WBC Auto (Bld) [#/Vol]Ordere d By: Bakari White on 11-13-2024 WBC (Bld) [#/Vol] Leukocytes [#/volume ] in Blood by Automated count 4.1-10.5 [facility] CBC AND AUTO DIFFon 05-29-20 ABSOLUTE BASOPHIL 0.0 X10E9/L Normal 0.0-0.2 [facility] Comment on above: Performed By: #### Leila WILLSON CMP, , 1987-09 #### [facility] ([id number]) [address] [place] [address] ABSOLUTE NEUTROPHIL 2.6 X10E9/L Normal 1.5-6.6 [facility] Comment on above: Performed By: #### Leila WILLSON [facility], , 1987-09 #### [facility] ([id number]) [address] [place] [address] Basophils/100 WBC (Bld) 0.8 % Normal [facility] Comment on above: Performed By: #### Leila WILLSON [facility], , 1987-09 #### [facility] ([id number]) [address] [place] [address] Eosinophils (Bld) [#/Vol] 0.1 10*3/uL Normal 0.0-0.4 [facility] Comment on above: Performed By: #### Leila WILLSON [facility], 1987-09 #### [facility] ([id number]) [address] [place] [address] Eosinophils/100 WBC (Bld) 2.8 % Normal [facility] Comment on above: Performed By: #### Leila WILLSON CMP, 1987-09 #### [facility] ([id number]) [address] [place] [address] Erythrocyte distribution width (RBC) [Ratio] 15.4 % High 11.5-15.0 [facility] Comment on above: Performed By: #### Leila WILLSON CMP, 1987-09 #### [facility] ([id number]) [address] [place] [address] Hematocrit (Bld) [Volume fraction] 33.8 % Low 39-49 [facility] Comment on above: Performed By: #### C ANAMIKA [facility], , 1987-09 #### [facility] ([id number]) [address] [place] [address] Hemoglobin (Bld) [Mass/Vol] 11.0 g/dL Low 13.0-17.0 [facility] Comment on above: Performed By: #### Leila WILLSON [facility], , 1987-09 #### [facility] ([id number]) [address] [place] [address] Lymphocytes (Bld) [#/Vol] 0.7 10*3/uL Low 1.0-3.5 [facility] Comment on above: Performed By: #### C ANAMIKA [facility], , 1987-09 #### [facility] ([id number]) [address] [place] [address]448 Lymphocytes/100 WBC (Bld) 16.7 % Normal [facility] Comment on above: Performed By: #### Leila WILLSON [facility], , 1987-09 #### [facility] ([id number]) [address] [place] [address]697 MCH (RBC) [Entitic mass] 26.6 pg Low 27-34 [facility] Comment on above: Performed By: #### Leila WILLSON [facility], , 1987-09 #### [facility] ([id number]) [address] [place] [address] MCHC (RBC) [Mass/Vol] 32.4 g/dL Normal 32-36 [facility] Comment on above: Performed By: #### Leila WILLSON [facility], , 1987-09 #### [facility] ([id number]) [address] [place] [address] MCV (RBC) [Entitic vol] 82 fL Normal 80-100 [facility] Comment on above: Performed By: #### Leila WILLSON CMP, , 1987-09 #### [facility] ([id number]) [address] [place] [address] Monocytes (Bld) [#/Vol] 0.6 10*3/uL Normal 0-0.9 [facility] Comment on above: Performed By: #### Leila WILLSON [facility], , 1987-09 #### [facility] ([id number]) [address] [place] [address] Monocytes/100 WBC (Bld) 14.4 % Normal [facility] Comment on above: Performed By: #### Leila WILLSON [facility], , 1987-09 #### [facility] ([id number]) [address] [place] [address] 27184 Neutrophils/100 WBC (Bld) 65.3 % Normal [facility] Comment on above: Performed By: #### Leila WILLSON [facility], , 1987-09 #### [facility] ([id number]) [address] [place] [address]272 Platelet mean volume (Bld) [Entitic vol] 7.6 fL Normal 7-12 [facility] Comment on above: Performed By: #### Leila WILLSON CMP, , 1987-09 #### [facility] ([id number]) [address] [place] [address]24 Platelets (Bld) [#/Vol] 205 10*3/uL Normal 150-450 [facility] Comment on above: Performed By: #### Leila WILLSON CMP, , 1987-09 #### [facility] ([id number]) [address] [place] [address] 79525 RBC COUNT 4.12 X10E12/L Normal 4.10-5.70 [facility] Comment on above: Performed By: #### C BCA, CMP, 28835-5, 1987-09 #### [facility] ([id number]) [address] [place] [address]24 WBC (Bld) [#/Vol] 4.0 10*3/uL Normal 4.0-11.0 [facility] Comment on above: Performed By: #### C ANAMIKA, CMP, , 1987-09 #### [facility] ([id number]) [address] [place] [address] COMPREHENSIVE METABOLIC PANE Emiliano 05-29-2023 Albumin [Mass/Vol] 4.1 g/dL Normal 3.2-5.3 [facility] Comment on above: Performed By: #### C BCA, CMP, , 1987-09 #### [facility] ([id number]) [address] [place] [address] ALP [Catalytic activity/Vol] 56 U/L Normal 39-130 [facility] Comment on above: Performed By: #### C BCA, CMP, 86324-6, 1987-09 #### [facility] ([id number]) [address] [place] [address] 78726 ALT [Catalytic activity/Vol] 22 U/L Normal 0-40 [facility] Comment on above: Performed By: #### C BCA, CMP, 69566-5, 1987-09 #### [facility] ([id number]) [address] [place] [address]244 Anion gap [Moles/Vol] 5 mmol/L Normal 5-15 [facility] Comment on above: Performed By: #### C BCA, CMP, , 1987-09 #### [facility] ([id number]) [address] [place] [address] 48832 AST [Catalytic activity/Vol] 25 U/L Normal 0-41 [facility] Comment on above: Performed By: #### C BCA, CMP, , 1987-09 #### [facility] ([id number]) [address] [place] [address] 16667 Bilirubin [Mass/Vol] 0.7 mg/dL Normal 0.3-1.2 [facility] Comment on above: Performed By: #### C ANAMIKA, CMP, , 1987-09 #### [facility] ([id number]) [address] [place] [address] 99101 Calcium [Mass/Vol] 8.7 mg/dL Normal 8.5-10.5 [facility] Comment on above: Performed By: #### C ANAMIKA, CMP, , 1987-09 #### [facility] ([id number]) [address] [place] [address] 90403 Chloride [Moles/Vol] 105 mmol/L Normal 98-109 [facility] Comment on above: Performed By: #### C BCA, CMP, 1987-09 #### [facility] ([id number]) [address] [place] [address] 89017 CO2 [Moles/Vol] 29 mmol/L Normal 22-32 [facility] Comment on above: Performed By: #### C BCA, CMP, , 1987-09 #### [facility] ([id number]) [address] [place] [address] 78519 Creatinine [Mass/Vol] 0.93 mg/dL Normal 0.70-1.20 [facility] Comment on above: Result Comment: METH OD TRACEABLE TO IDMS STANDARD Performed By: #### C ANAMIKA, CMP, , 1987-09 #### [facility] ([id number]) [address] [place] [address] 13213 eGFR (CKD-EPI) NON-RACE DEPENDENT >90 Normal >59 [facility] Comment on above: Result Comment: Reported eGFR is based on the CKD-EPI 2020 equation that does not use a race coefficient. Performed By: #### C ALL WILLSON, 21370-6, 1987-09 #### [facility] ([id number]) [address] [place] [address] 0[address]99 Glucose [Mass/Vol] 108 mg/dL High 65-99 [facility] Comment on above: Performed By: #### C ALL WILLSON, 02071-4, 1987-09 #### [facility] ([id number]) [address] [place] [address] 80008 Potassium [Moles/Vol] 4.3 mmol/L Normal 3.5-5.0 [facility] Comment on above: Performed By: #### C LAL WILLSON, 82377-4, 1987-09 #### [facility] ([id number]) [address] [place] [address] 26697 Protein [Mass/Vol] 8.3 g/dL High 6.0-8.0 [facility] Comment on above: Performed By: #### C ALL WILLSON, 82024-9, 1987-09 #### [facility] ([id number]) [address] [place] [address] 99842 Sodium [Moles/Vol] 139 mmol/L Normal 134-146 [facility] Comment on above: Performed By: #### C ALL WILLSON, 30190-8, 1987-09 #### [facility] ([id number]) [address] [place] [address] 99258 Urea nitrogen [Mass/Vol] 13 mg/dL Normal 5-27 [facility] Comment on above: Performed By: #### C ALL WILLSON, 74280-1, 1987-09 #### [facility] ([id number]) [address] [place] [address] CRP [Mass/Vol]on 05-29-2023 C REACTIVE PROTEIN 5.8 mg/dL High 0.000-0.744 [facility] Comment on above: Performed By: #### C BCA, [facility], 04724-0, 1987-09 #### [facility] ([id number]) [address] [place] [address] CT CTA CHESTon 05-29-2023 CT CTA CHEST [...] Schwartz MD on 05/29/2023 1:30 PM Fady Cooper DO have personally reviewed the image(s) and agree with and/or edited the report Finalized by Fady St DO on 05/29/2023 2:26 PM Normal [facility] Fibrin D-dimer DDU (PPP) [Ma ss/Vol]on 05-29-2023 D DIMER 945 ng/mL DDU High <255 [facility] Comment on above: Result Comment: Results >=255ng/mL [...] D-Dimer level. Performed By: #### C BCA, [facility], 64080-5, 1987-09 #### [facility] ([id number]) [address] [facility] [place] [address] SARS/FLU A+B/RSV by NAAT/Mol ecularon 05-29-2023 SARS/FLU [...] operators who are performing tests using either [employer] DX or [employer] III [employer] and is limited to laboratories that [...] repeat. Fact Sheet for Healthcare Providers: https://www.fda.gov/medi a/253106/download Fact Sheet for Patients: https://www.fda.gov/medi a/937380/download Normal [facility] Comment on above: Performed By: #### C OVFLR #### [facility] ([id number]) [address] [place] [address], [place] [address] XR KNEE RT 3 VWSon 3 XR [...] Samson MD on 05/29/2023 12:57 PM Normal [facility] Hgb/Hcton 03-17-2023 Hematocrit (Bld) [Volume fraction] 31.6 % Low 40.7-50.3 [facility] Comment on above: Performed By: #### H H #### [facility] [address] [place] [address] [place] [address] Hand Developer: Elizabeth Sampson MD Hemoglobin (Bld) [Mass/Vol] 10.1 g/dL Low 13.0-17.0 [facility] Comment on above: Performed By: #### H H #### [address] [place] [address] Hand Developer: Elizabeth Sampson MD OPERATIVE REPORTon 3 OPERATIVE REPORT [address] [address] OPERATIVE REPORT PATIENT NAME: JÚNIOR ROWLAND : 1960 [facility] REC NO: [id number] ROOM: 0316 ACCOUNT NO: [id number] ADMIT DATE: 03/16/2023 PROVIDER: Ajay Galvan DATE [...] to go with a 32-mm patellar dome. [place] holes were placed. The knee was then [...] layer was then closed with #1 Vicryl gwgtmy-[id number]-zuzod sutures over two Hemovac drains. Vancomycin powder [...] a layered closure. AJAY GALVAN [id number] Doc#: [id number] CC: Normal [facility] MRSA, DNA, Nasalon 3 MRSA, DNA, Nasal Negative Normal [facility] Comment on above: Result Comment: [facility]: MRSA DNA not detected by nucleic acid amplification. Results should be used as an adjunct to nosocomial control efforts to identify patients needing enhanced precautions. The test is not intended to identify patients with staphylococcal infections. Results should not be used to guide or monitor treatment for MRSA infections. Performed By: #### M RSANO #### [facility] [address] [place], [place] [id number] Hand Developer: Phan Dos Santos MD [facility] [address] [place], [place] [phone] Hand Developer: Elizabeth Sampson MD Basic Metabolic Profon 02-18 Anion gap [Moles/Vol] 9 mmol/L Normal 9-17 [facility] Comment on above: Performed By: #### B MP, CDP #### [facility] [address] [place], [place] [phone] Hand Developer: Elizabeth Sampson MD BUN/CRE Ratio 26 High 9-20 [facility] Comment on above: Performed By: #### B PAULETTE, CDP #### [facility] [address] [place], [place] [phone] Hand Developer: Elizabeth Sampson MD Calcium [Mass/Vol] 9.5 mg/dL Normal 8.6-10.4 [facility] Comment on above: Performed By: #### B MP, CDP #### [facility] [address] [place], [place] 2306383 Hand Developer: Elizabeth Sampson MD Chloride [Moles/Vol] 102 mmol/L Normal 98-107 [facility] Comment on above: Performed By: #### B MP, CDP #### [facility] [address] [place], [place] 629[address]83 Hand Developer: Elizabeth Sampson MD CO2 [Moles/Vol] 27 mmol/L Normal 20-31 [facility] Comment on above: Performed By: #### B MP, CDP #### [facility] [address] [place], [place] [phone] Hand Developer: Elizabeth Sampson MD Creatinine [Mass/Vol] 0.8 mg/dL Normal 0.7-1.2 [facility] Comment on above: Performed By: #### B MP, CDP #### [facility] [address] [place] [address] [place] [address] Hand Developer: Elizabeth Sampson MD GFR/1.73 sq M.predicted among non-blacks MDRD (S/P/Bld) [Vol rate/Area] mL/min/{1.73_m2} Normal >60 [facility] Comment on above: Result Comment: These [...] Performed By: #### B PAULETTE, CDP #### [facility] [address] [place] [address] [place] [address] Hand Developer: Elizabeth Sampson MD Glucose [Mass/Vol] 85 mg/dL Normal 70-99 [facility] Comment on above: Performed By: #### B PAULETTE, CDP #### [address] [place] [address] Hand Developer: Elizabeth Sampson MD Potassium [Moles/Vol] 4.2 mmol/L Normal 3.7-5.3 [facility] Comment on above: Performed By: #### B PAULETTE, CDP #### [address] [place] [address] Hand Developer: Elizabeth Sampson MD Sodium [Moles/Vol] 138 mmol/L Normal 135-144 [facility] Comment on above: Performed By: #### B PAULETTE, CDP #### [address] [place] [address] Hand Developer: Elizabeth Sampson MD Urea nitrogen [Mass/Vol] 21 mg/dL Normal 8-23 [facility] Comment on above: Performed By: #### B PAULETTE, CDP #### [facility] [address] [place], [place] [phone] Hand Developer: Elizabeth Sampson MD CBC with Diffon 02-18-2023 Abs. Basophil 0.04 k/uL Normal 0.00-0.20 [facility] Comment on above: Performed By: #### B MP, CDP #### [address] [place], [facility]83 Hand Developer: Elizabeth Sampson MD Abs.Imm.Granulocyte <0.03 Normal 0.00-0.30 [facility] Comment on above: Performed By: #### B MP, CDP #### [address] [place], [place] [address] Hand Developer: Elizabeth Sampson MD Abs.Neutrophil (Seg) 2.98 k/uL Normal 1.50-8.10 [facility] Comment on above: Performed By: #### B MP, CDP #### [address] [place], [place] [address] Hand Developer: Elizabeth Sampson MD Basophils/100 WBC (Bld) 1 % Normal 0-2 [facility] Comment on above: Performed By: #### B MP, CDP #### [address] [place], [place] [address] Hand Developer: Elizabeth Sampson MD Eosinophils (Bld) [#/Vol] 0.16 10*3/uL Normal 0.00-0.44 [facility] Comment on above: Performed By: #### B MP, CDP #### [facility] [address] [place] [address] Dr. [place], [facility]83 Hand Developer: Elizabeth Sampson MD Eosinophils/100 WBC (Bld) 3 % Normal 1-4 [facility] Comment on above: Performed By: #### B MP, CDP #### [facility] [address] [place] [address] Dr. [place], [facility]83 Hand Developer: Elizabeth Sampson MD Erythrocyte distribution width (RBC) [Ratio] 13.5 % Normal 11.8-14.4 [facility] Comment on above: Performed By: #### B PAULETTE, CDP #### [facility] [address] [place] [address] [address] [place], [place] [phone] Hand Developer: Elizabeth Sampson MD Hematocrit (Bld) [Volume fraction] 39.9 % Low 40.7-50.3 [facility] Comment on above: Performed By: #### B PAULETTE, CDP #### [facility] [address] [place] [address] [place] [place], [place] 1385683 Hand Developer: Elizabeth Sampson MD Hemoglobin (Bld) [Mass/Vol] 12.7 g/dL Low 13.0-17.0 [facility] Comment on above: Performed By: #### B PAULETTE, CDP #### [address] [place], [place] 3475383 Hand Developer: Elizabeth Sampson MD Immature granulocytes/100 WBC (Bld) 0 % Normal 0 [facility] Comment on above: Performed By: #### B PAULETTE, CDP #### [address] [place], [place] 7541783 Hand Developer: Elizabeth Sampson MD Lymphocytes (Bld) [#/Vol] 1.40 10*3/uL Normal 1.10-3.70 [facility] Comment on above: Performed By: #### B PAULETTE, CDP #### [facility] [address] [place] [address] [address] [place], [place] [phone] Hand Developer: Elizabeth Sampson MD Lymphocytes/100 WBC (Bld) 28 % Normal 24-43 [facility] Comment on above: Performed By: #### B PAULETTE, CDP #### [address] [place] [address] Hand Developer: Elizabeth Sampson MD MCH (RBC) [Entitic mass] 28.0 pg Normal 25.2-33.5 [facility] Comment on above: Performed By: #### B MP, CDP #### [facility] [address] [place], [place] [phone] Hand Developer: Elizabeth Sampson MD MCHC (RBC) [Mass/Vol] 31.8 g/dL Normal 28.4-34.8 [facility] Comment on above: Performed By: #### B MP, CDP #### [facility] [address] [place], [facility]83 Hand Developer: Elizabeth Sampson MD MCV (RBC) [Entitic vol] 87.9 fL Normal 82.6-102.9 [facility] Comment on above: Performed By: #### B PAULETTE, CDP #### [address] [place], [facility]83 Hand Developer: Elizabeht Sampson MD Monocytes (Bld) [#/Vol] 0.43 10*3/uL Normal 0.10-1.20 [facility] Comment on above: Performed By: #### B PAULETTE, CDP #### [address] [place], [place] [phone] Hand Developer: Elizabeth Sampson MD Monocytes/100 WBC (Bld) 9 % Normal 3-12 [facility] Comment on above: Performed By: #### B MP, CDP #### [facility] [address] [place], [place] [address] Hand Developer: Elizabeth Sampson MD Neutrophil (Seg) 59 % Normal 36-65 [facility] Comment on above: Performed By: #### B MP, CDP #### [facility] [address] [place] [address] Hand Developer: Elizabeth Sampson MD NRBC Automated 0.0 per 100 WBC Normal 0.0 [facility] Comment on above: Performed By: #### B MP, CDP #### [facility] [address] [place], [facility]83 Hand Developer: Elizabeth Sampson MD Platelet mean volume (Bld) [Entitic vol] 10.2 fL Normal 8.1-13.5 [facility] Comment on above: Performed By: #### B MP, CDP #### [facility] [address] [place] [address] Hand Developer: Elizabeth Sampson MD Platelets (Bld) [#/Vol] 215 10*3/uL Normal 138-453 [facility] Comment on above: Performed By: #### B MP, CDP #### [facility] [address] [place], [place] [phone] ([address] Hand Developer: Elizabeth Sampson MD RBC (Bld) [#/Vol] 4.54 10*6/uL Normal 4.21-5.77 [facility] Comment on above: Performed By: #### B PAULETTE, CDP #### [address] [place], [facility]64 ([address] Hand Developer: Elizabeth Sampson MD WBC (Bld) [#/Vol] 5.0 10*3/uL Normal 3.5-11.3 [facility] Comment on above: Performed By: #### B MP, CDP #### [address] [place], [place] 258[address]83 Hand Developer: Elizabeth Sampson MD MRSA, DNA, Nasalon 3 Specimen Description .NASAL SWAB Normal [facility] Comment on above: Performed By: #### M RSANO #### [facility] [address] [place] [address] Hand Developer: Phan Dos Santos MD [address] [place], [place] [address] Hand Developer: Elizabeth Sampson MD Type + Screenon 02-18-2023 Type + Screen Sample Expiration 03/19/2023,2359 Arm Band Number [id number] ABO/Rh(D) O POSITIVE Antibody Screen NEGATIVE Normal [facility] Comment on above: Performed By: #### T YS #### [facility] [address] [place] [address] [place] [address] Hand Developer: Elizabeth Sampson MD Hemoglobin and hematocrit, b loodon 06-13-2022 Hematocrit (Bld) [Volume fraction] 33.7 % Low 40.7 - 50.3 % [facility] Hemoglobin (Bld) [Mass/Vol] 11.0 g/dL Low 13.0 - 17.0 g/dL [facility] Interpretation and review of laboratory results Abnormal [facility] Hgb/Hcton 06-13-2022 Hematocrit (Bld) [Volume fraction] 33.7 % Low 40.7-50.3 [facility] Comment on above: Performed By: #### H H #### [address] [place] [address] Hand Developer: Elizabeth Sampson MD Hemoglobin (Bld) [Mass/Vol] 11.0 g/dL Low 13.0-17.0 [facility] Comment on above: Performed By: #### H H #### [address] [place], [place] [phone] Hand Developer: Elizabeth Sampson MD OPERATIVE REPORTon OPERATIVE REPORT [address] [address] OPERATIVE REPORT PATIENT NAME: JÚNIOR ROWLAND : 1960 MED REC NO: [id number] ROOM: [facility] ACCOUNT NO: [id number] ADMIT DATE: 06/12/2022 PROVIDER: Ajay Galvan DATE [...] layer was then closed with #1 Vicryl aqocut-qc-mkfav sutures over two Hemovac drains. Remainder of [...] layered closure time. AJAY GALVAN [id number] Doc#: [id number] CC: [facility] EKG 12 LeadOrdered By: Niranjan Velez on 05-13-2022 Atrial Rate 70 BPM [employer] Phone: P [place] 8 degrees [employer] Phone: P-R Interval 218 ms [employer] Phone: Q-T Interval 394 ms [employer] Phone: QRS Duration 86 ms [employer] Phone: QTc Calculation (Bazett) 425 ms [employer] Phone: R [place] 6 degrees [employer] Phone: T [place] 36 degrees [employer] Phone: Ventricular Rate 70 BPM [employer] Phone: [employer] Phone: EKG 12 Leadon 05-13-2022 Sinus rhythm with 1s t degree A-V block Otherwise normal ECG No previous ECGs available Confirmed by ELDA VELEZ ([id number]) on 05/13/2022 12:38:30 AM [facility] Elda Velez MD - 05/13/2022 Sinus rhythm with 1st degree A-V block Otherwise normal ECG No previous ECGs available Confirmed by ELDA VELEZ ([id number]) on 05/13/2022 12:38:30 AM [facility] Work Phone: MRSA DNA Probe, Nasalon 05-01 MRSA, DNA, Nasal Negative NEGATIVE [facility] Comment on above: NEGATIVE: MRSA DNA n ot detected by nucleic acid amplification. Results should be used as an adjunct to nosocomial control efforts to identify patients needing enhanced precautions. The test is not intended to identify patients with staphylococcal infections. Results should not be used to guide or monitor treatment for MRSA infections. Specimen Description .NASAL SWAB [facility] MRSA, DNA, Nasalon MRSA, DNA, Nasal Negative Normal [facility] Comment on above: Result Comment: [facility]: MRSA DNA not detected by nucleic acid amplification. Results should be used as an adjunct to nosocomial control efforts to identify patients needing enhanced precautions. The test is not intended to identify patients with staphylococcal infections. Results should not be used to guide or monitor treatment for MRSA infections. Performed By: #### M RSANO #### [facility] [address] [place] [address] Hand Developer: Phan Dos Santos MD [facility] [address] [place] [address] Hand Developer: Elizabeth Sampson MD Basic Metabolic Panel 05-01 Anion gap [Moles/Vol] 9 mmol/L 9 - 17 mmol/L [facility] Calcium [Mass/Vol] 9.6 mg/dL 8.6 - 10. 4 mg/dL [facility] Chloride [Moles/Vol] 101 mmol/L 98 - 10 7 mmol/L [facility] CO2 [Moles/Vol] 26 mmol/L 20 - 31 mmol/L [facility] Creatinine [Mass/Vol] 0.86 mg/dL 0.70 - 1.20 mg/dL [facility] GFR/1.73 sq M.predicted MDRD (S/P/Bld) [Vol rate/Area] - PINF [facility] Comment on above: Effective Mar 03, 2022 [...] 90 mg/dL 70 - 99 mg/dL [facility] Interpretation and review of laboratory results Abnormal [facility] Potassium [Moles/Vol] 3.9 mmol/L 3.7 - 5.3 mmol/L [facility] Sodium [Moles/Vol] 136 mmol/L 135 - 144 mmol/L [facility] Urea nitrogen (BldV) [Mass/Vol] 21 mg/dL 8 - 23 mg/dL [facility] Urea nitrogen/Creatinine (Bld) [Mass ratio] 24 High 9 - 20 [facility] Basic Metabolic Profon 05-12 Anion gap [Moles/Vol] 9 mmol/L Normal 9-17 [facility] Comment on above: Performed By: #### C DP, BMP #### [facility] [address] [place] [address] Hand Developer: Elizabeth Sampson MD BUN/CRE Ratio 24 High 9-20 [facility] Comment on above: Performed By: #### C DP, BMP #### [facility] [address] [place] [address] Hand Developer: Elizabeth Sampson MD Calcium [Mass/Vol] 9.6 mg/dL Normal 8.6-10.4 [facility] Comment on above: Performed By: #### C DP, BMP #### [facility] [address] [place] [address] Hand Developer: Elizabeth Sampson MD Chloride [Moles/Vol] 101 mmol/L Normal 98-107 [facility] Comment on above: Performed By: #### C DP, BMP #### [facility] [address] [place] [address] Hand Developer: Elizabeth Sampson MD CO2 [Moles/Vol] 26 mmol/L Normal 20-31 [facility] Comment on above: Performed By: #### C DP, BMP #### [facility] [address] [place] [address] Hand Developer: Elizabeth Sampson MD Creatinine [Mass/Vol] 0.86 mg/dL Normal 0.70-1.20 [facility] Comment on above: Performed By: #### C DP, BMP #### [facility] [address] [place] [address] Hand Developer: Elizabeth Sampson MD GFR/1.73 sq M.predicted among non-blacks MDRD (S/P/Bld) [Vol rate/Area] mL/min/{1.73_m2} Normal >60 [facility] Comment on above: Result Comment: Effective [...] Performed By: #### C DP, BMP #### [facility] [address] [place] [address] Hand Developer: Elizabeth Sampson MD Glucose [Mass/Vol] 90 mg/dL Normal 70-99 [facility] Comment on above: Performed By: #### C DP, BMP #### [facility] [address] [place] [address] Hand Developer: Elizabeth Sampson MD Potassium [Moles/Vol] 3.9 mmol/L Normal 3.7-5.3 [facility] Comment on above: Performed By: #### C DP, BMP #### [facility] [address] [place] [address] Hand Developer: Elizabeth Sampson MD Sodium [Moles/Vol] 136 mmol/L Normal 135-144 [facility] Comment on above: Performed By: #### C DP, BMP #### [facility] [address] [place] [address] Hand Developer: Elizabeth Sampson MD Urea nitrogen [Mass/Vol] 21 mg/dL Normal 8-23 [facility] Comment on above: Performed By: #### C DP, BMP #### [facility] [address] [place] [address] Hand Developer: Elizabeth Sampson MD CBC with Auto Differentialon 05-12-2022 Absolute Eos # 0.19 [facility] Absolute Immature Granulocyte 0.05 [facility] Absolute Lymph # 1.73 [facility] Absolute Daniels # 0.48 [facility] Basophils (Bld) [#/Vol] 0.04 10*3/uL [facility] Basophils/100 WBC (Bld) 0 % 0 - 2 % [facility] Eosinophils/100 WBC (Bld) 2 % 1 - 4 % [facility] Hematocrit (Bld) [Volume fraction] 42.5 % 40.7 - 50.3 % [facility] Hemoglobin (Bld) [Mass/Vol] 13.4 g/dL 13.0 - 17.0 g/dL [facility] Immature granulocytes/100 WBC (Bld) 1 % High 0 [facility] Interpretation and review of laboratory results Abnormal [facility] Lymphocytes/100 WBC (Bld) 18 % Low 24 - 43 % [facility] MCH (RBC) [Entitic mass] 28.6 pg 25.2 - 33.5 pg [facility] MCHC (RBC) [Mass/Vol] 31.5 g/dL 28.4 - 34.8 g/dL [facility] MCV (RBC) [Entitic vol] 90.8 fL 82.6 - 102.9 fL [facility] Monocytes/100 WBC (Bld) 5 % 3 - 12 % [facility] NRBC Automated 0.0 0.0 per 100 WBC [facility] Platelet distribution width (Bld) [Ratio] 13.4 % 11.8 - 14.4 % [facility] Platelet mean volume (Bld) [Entitic vol] 9.7 fL 8.1 - 13.5 fL [facility] Platelets (Bld) [#/Vol] 240 10*3/uL [facility] RBC (Bld) [#/Vol] 4.68 10*6/uL 4.21 - 5.7 7 m/uL [facility] Segmented neutrophils/100 WBC (Bld) 74 % High 36 - 65 % [facility] Segs Absolute 6.94 [facility] WBC (Bld) [#/Vol] 9.4 10*3/uL [facility] CBC with Diffon 05-12-2022 Abs. Basophil 0.04 k/uL Normal 0.00-0.20 [facility] Comment on above: Performed By: #### C DP, BMP #### [facility] [address] [place] [address] Dr. [place], [facility]83 Hand Developer: Elizabeth Sampson MD Abs.Imm.Granulocyte 0.05 k/uL Normal 0.00-0.30 [facility] Comment on above: Performed By: #### C DP, BMP #### [facility] [address] [place] [address] Dr. [place], [facility]83 Hand Developer: Elizabeth Sampson MD Abs.Neutrophil (Seg) 6.94 k/uL Normal 1.50-8.10 [facility] Comment on above: Performed By: #### C DP, BMP #### [address] [place] [address] Hand Developer: Elizabeth Sampson MD Basophils/100 WBC (Bld) 0 % Normal 0-2 [facility] Comment on above: Performed By: #### C DP, BMP #### [address] [place], [facility]83 Hand Developer: Elizabeth Sampson MD Eosinophils (Bld) [#/Vol] 0.19 10*3/uL Normal 0.00-0.44 [facility] Comment on above: Performed By: #### C DP, BMP #### [address] [place] [address] Hand Developer: Elizabeth Sampson MD Eosinophils/100 WBC (Bld) 2 % Normal 1-4 [facility] Comment on above: Performed By: #### C DP, BMP #### [address] [place] [address] Hand Developer: Elizabeth Sampson MD Erythrocyte distribution width (RBC) [Ratio] 13.4 % Normal 11.8-14.4 [facility] Comment on above: Performed By: #### C DP, BMP #### [address] [place], [place] [address] Hand Developer: Elizabeth Sampson MD Hematocrit (Bld) [Volume fraction] 42.5 % Normal 40.7-50.3 [facility] Comment on above: Performed By: #### C DP, BMP #### [address] [place], [facility]83 Hand Developer: Elizabeth Sampson MD Hemoglobin (Bld) [Mass/Vol] 13.4 g/dL Normal 13.0-17.0 [facility] Comment on above: Performed By: #### C DP, BMP #### [address] [place], [facility]83 Hand Developer: Elizabeth Sampson MD Immature granulocytes/100 WBC (Bld) 1 % High 0 [facility] Comment on above: Performed By: #### C DP, BMP #### [address] [place], [facility]83 Hand Developer: Elizabeth Sampson MD Lymphocytes (Bld) [#/Vol] 1.73 10*3/uL Normal 1.10-3.70 [facility] Comment on above: Performed By: #### C DP, BMP #### [address] [place] [address] Hand Developer: Elizabeth Sampson MD Lymphocytes/100 WBC (Bld) 18 % Low 24-43 [facility] Comment on above: Performed By: #### C DP, BMP #### [address] [place] [address] Hand Developer: Elizabeth Sampson MD MCH (RBC) [Entitic mass] 28.6 pg Normal 25.2-33.5 [facility] Comment on above: Performed By: #### C DP, BMP #### [address] [place], [facility]83 Hand Developer: Elizabeth Sampson MD MCHC (RBC) [Mass/Vol] 31.5 g/dL Normal 28.4-34.8 [facility] Comment on above: Performed By: #### C DP, BMP #### [address] [place] [address] Hand Developer: Elizabeth Sampson MD MCV (RBC) [Entitic vol] 90.8 fL Normal 82.6-102.9 [facility] Comment on above: Performed By: #### C DP, BMP #### [address] [place] [address] Hand Developer: Elizabeth Sampson MD Monocytes (Bld) [#/Vol] 0.48 10*3/uL Normal 0.10-1.20 [facility] Comment on above: Performed By: #### C DP, BMP #### [address] [place], [place] [id number] Hand Developer: Elizabeth Sampson MD Monocytes/100 WBC (Bld) 5 % Normal 3-12 [facility] Comment on above: Performed By: #### C DP, BMP #### [facility] [address] [place], [place] [address] Hand Developer: Elizabeth Sampson MD Neutrophil (Seg) 74 % High 36-65 [facility] Comment on above: Performed By: #### C DP, BMP #### [facility] [address] [place], [place] [phone] Hand Developer: Elizabeth Sampson MD NRBC Automated 0.0 per 100 WBC Normal 0.0 [facility] Comment on above: Performed By: #### C DP, BMP #### [facility] [address] [place], [place] [phone] Hand Developer: Elizabeth Sampson MD Platelet mean volume (Bld) [Entitic vol] 9.7 fL Normal 8.1-13.5 [facility] Comment on above: Performed By: #### C DP, BMP #### [address] [place], [place] [phone] Hand Developer: Elizabeth Sampson MD Platelets (Bld) [#/Vol] 240 10*3/uL Normal 138-453 [facility] Comment on above: Performed By: #### C DP, BMP #### [address] [place], [place] [phone] Hand Developer: Elizabeth Sampson MD RBC (Bld) [#/Vol] 4.68 10*6/uL Normal 4.21-5.77 [facility] Comment on above: Performed By: #### C DP, BMP #### [facility] [address] [place], [place] [phone] Hand Developer: Elizabeth Sampson MD WBC (Bld) [#/Vol] 9.4 10*3/uL Normal 3.5-11.3 [facility] Comment on above: Performed By: #### C DP, BMP #### [facility] [address] [place] [address] Hand Developer: Elizabeth Sampson MD MRSA, DNA, Nasalon Specimen Description .NASAL SWAB Normal [facility] Comment on above: Performed By: #### M RSANO #### [facility] [address] [facility] [address] Hand Developer: Phan Dos Santos MD [facility] [address] [place] [address] Hand Developer: Elizabeth Sampson MD TYPE AND SCREENon 05-12-2022 ABO/Rh Positive [facility] Arm Band Number [id number] [facility] Expiration Date 06/12/2022,2359 [facility] Type + Screenon 05-12-2022 Type + Screen Sample Expiration 06/12/2022,2359 Arm Band Number [id number] ABO/Rh(D) O POSITIVE Antibody Screen NEGATIVE Normal [facility] Comment on above: Performed By: #### T YS #### [facility] [address] [place] [address] Hand Developer: Elizabeth Sampson MD Albumin [Mass/volume] in Ser um or PlasmaOrdered By: Fred Diehl on 01-29-2022 Albumin [Mass/Vol] 4.1 g/dL 3.2-5.5 [facility] Basophils Auto (Bld) [#/Vol] Ordered By: PROVIDER TEMP on 01-29-2022 Basophils (Bld) [#/Vol] 0.1 10*3/uL 0.0-0.2 [facility] Basophils/100 WBC Auto (Bld) Ordered By: PROVIDER TEMP on 01-29-2022 Basophils/100 WBC (Bld) 1.0 % . [facility] Bilirubin Test strip Ql (U)O rdered By: PROVIDER TEMP on 01-29-2022 Bilirubin Ql (U) Negative Negative [facility] Blood hemoglobin measurement (mass/volume)Ordered By: PROVIDER TEMP on 01-29-2022 Hemoglobin (Bld) [Mass/Vol] 13.3 g/dL 13.0-17.0 [facility] Blood leukocytes automated c ount (number/volume)Ordered By: PROVIDER TEMP on 01-29-2022 WBC (Bld) [#/Vol] 5.2 10*3/uL 4.5-11.0 [facility] Color Auto (U)Ordered By: KEENAN WORKMANER TEMP on 01-29-2022 Color (U) Yellow Yellow [facility] Creatinine and Glomerular fi ltration rate.predicted panel (S/P/Bld)Ordered By: Fred Diehl on 01-29-2022 Creatinine [Mass/Vol] 0.90 mg/dL 0.64-1.27 [facility] Direct bilirubin measurement Ordered By: Fred Diehl on 01-29-2022 Bilirubin.direct [Mass/Vol] 0.1 mg/dL 0.0-0.4 [facility] Eosinophils Auto (Bld) [#/Vo l]Ordered By: PROVIDER TEMP on 01-29-2022 Eosinophils (Bld) [#/Vol] 0.2 10*3/uL 0.0-0.45 [facility] Eosinophils/100 WBC Auto (Bl d)Ordered By: PROVIDER TEMP on 01-29-2022 Eosinophils/100 WBC (Bld) 3.4 % . [facility] Erythrocyte distribution wid th Auto (RBC) [Ratio]Ordered By: PROVIDER TEMP on 01-29-2022 Erythrocyte distribution width (RBC) [Ratio] 14.1 % 12.0-14.8 [facility] Estimated glomerular filtrat ion rate (GFR) non- AmericanOrdered By: Fred Diehl on 01-29-2022 GFR/1.73 sq M.predicted among non-blacks MDRD (S/P/Bld) [Vol rate/Area] > 60 mL/Min [facility] Globulin Calc (S) [Mass/Vol] Ordered By: Fred Diehl on 01-29-2022 Globulin (S) [Mass/Vol] 3.9 g/dL [facility] Hematocrit Auto (Bld) [Volum e fraction]Ordered By: PROVIDER TEMP on 01-29-2022 Hematocrit (Bld) [Volume fraction] 40.7 % 38.8-50.0 [facility] Ketones Auto test strip (U) [Mass/Vol]Ordered By: PROVIDER TEMP on 01-29-2022 Ketones (U) [Mass/Vol] Negative Negative Fi [facility] - Chemistry and C hemistry - challengeOrdered By: Fred Diehl on 01-29-2022 Lipase [Catalytic activity/Vol] 34.0 U/L 22-51 [facility] - Hematology and Cell countsOrdered By: PROVIDER TEMP on 01-29-2022 Nucleated RBC/100 WBC (Bld) [Ratio] 0.2 % 0-0.5 [facility] Lymphocytes Auto (Bld) [#/Vo l]Ordered By: PROVIDER TEMP on 01-29-2022 Lymphocytes (Bld) [#/Vol] 1.2 10*3/uL 1.00-4.8 [facility] Lymphocytes/100 WBC Auto (Bl d)Ordered By: PROVIDER TEMP on 01-29-2022 Lymphocytes/100 WBC (Bld) 23.8 % . [facility] MCH Auto (RBC) [Entitic mass ]Ordered By: PROVIDER TEMP on 01-29-2022 MCH (RBC) [Entitic mass] 27.9 pg 27.5-35.2 [facility] MCHC Auto (RBC) [Mass/Vol]Or dered By: PROVIDER TEMP on 01-29-2022 MCHC (RBC) [Mass/Vol] 32.7 g/dL 32.5-35.6 [facility] MCV Auto (RBC) [Entitic vol] Ordered By: PROVIDER TEMP on 01-29-2022 MCV (RBC) [Entitic vol] 85.3 fL 83.5-101 [facility] Monocytes Auto (Bld) [#/Vol] Ordered By: PROVIDER TEMP on 01-29-2022 Monocytes (Bld) [#/Vol] 0.4 10*3/uL 0.0-0.8 [facility] Monocytes/100 WBC Auto (Bld) Ordered By: PROVIDER TEMP on 01-29-2022 Monocytes/100 WBC (Bld) 7.0 % . [facility] Neutrophils Auto (Bld) [#/Vo l]Ordered By: PROVIDER TEMP on 01-29-2022 Neutrophils (Bld) [#/Vol] 3.4 10*3/uL 1.8-7.7 [facility] Neutrophils/100 WBC Auto (Bl d)Ordered By: PROVIDER TEMP on 01-29-2022 Neutrophils/100 WBC (Bld) 64.8 % . [facility] Nitrite Test strip Ql (U)Ord ered By: PROVIDER TEMP on 01-29-2022 Nitrite Ql (U) Negative Negative [facility] No Panel InformationOrdered By: Fred Diehl on 01-29-2022 Estimated GFR () > 60 mL/Min [facility] Comment on above: GFR estimated refere nce range: According to KDOQI guidelines, <60 ml/min/1.73m2 is sufficient to diagnose a patient with chronic kidney disease. Pharmacy Creatinine Clearance (Chem 139.66 [facility] Platelet mean volume Auto (B ld) [Entitic vol]Ordered By: PROVIDER TEMP on 01-29-2022 Platelet mean volume (Bld) [Entitic vol] 8.2 fL 6.6-10.1 [facility] Platelets Auto (Bld) [#/Vol] Ordered By: PROVIDER TEMP on 01-29-2022 Platelets (Bld) [#/Vol] 239 10*3/uL 150-450 [facility] Protein Auto test strip (U) [Mass/Vol]Ordered By: PROVIDER TEMP on 01-29-2022 Protein (U) [Mass/Vol] Negative Negative [facility] Protein [Mass/volume] in Ser um or PlasmaOrdered By: Fred Diehl on 01-29-2022 Protein [Mass/Vol] 8.0 g/dL 6.1-7.9 [facility] RBC Auto (Bld) [#/Vol]Ordere d By: PROVIDER TEMP on 01-29-2022 RBC (Bld) [#/Vol] 4.77 10*6/uL 3.90-5.60 [facility] Serum or plasma alanine ramesh otransferase measurement without P-5'-P (enzymatic activiOrdered By: Fred Diehl on 01-29-2022 ALT No additional P-5'-P [Catalytic activity/Vol] 25 U/L 10-60 [facility] Serum or plasma albumin/glob ulin mass ratioOrdered By: Fred Diehl on 01-29-2022 Albumin/Globulin [Mass ratio] 1.1 {ratio} [facility] Serum or plasma alkaline corrie sphatase measurement (enzymatic activity/volume)Ordered By: Fred Diehl on 01-29-2022 ALP [Catalytic activity/Vol] 53 U/L 32-92 [facility] Serum or plasma anion gap de terminationOrdered By: Fred Diehl on 01-29-2022 Anion gap [Moles/Vol] 12.0 mmol/L 6.0-15.0 [facility] Serum or plasma aspartate am inotransferase measurement (enzymatic activity/volume)Ordered By: Fred Diehl on 01-29-2022 AST [Catalytic activity/Vol] 25 U/L 10-42 [facility] Serum or plasma calcium martha urement (mass/volume)Ordered By: Fred Diehl on 01-29-2022 Calcium [Mass/Vol] 9.4 mg/dL 8.2-10.2 [facility] Serum or plasma chloride rodrick surement (moles/volume)Ordered By: Fred Diehl on 01-29-2022 Chloride [Moles/Vol] 101 mmol/L 95-114 [facility] Serum or plasma glucose martha urement (mass/volume)Ordered By: Fred Diehl on 01-29-2022 Glucose [Mass/Vol] 92 mg/dL 70-100 [facility] Comment on above: ADA recommended refe rence range Random Glucose Reference Range is dependent on time and content of last meal. Glucose of more than 200 mg/dL in a nonstressed, ambulatory subject supports the diagnosis of Diabetes Mellitus. Serum or plasma non-glucuron idated bilirubin measurement (mass/volume)Ordered By: Fred Diehl on 01-29-2022 Bilirubin.indirect [Mass/Vol] 0.7 mg/dL [facility] Serum or plasma potassium me asurement (moles/volume)Ordered By: Fred Diehl on 01-29-2022 Potassium [Moles/Vol] 3.8 mmol/L 3.5-5.1 [facility] Serum or plasma sodium measu rement (moles/volume)Ordered By: Fred Diehl on 01-29-2022 Sodium [Moles/Vol] 137 mmol/L 136-146 [facility] Serum or plasma total biliru bin measurement (mass/volume)Ordered By: Fred Diehl on 01-29-2022 Bilirubin [Mass/Vol] 0.8 mg/dL 0.3-1.2 [facility] Serum or plasma total carbon dioxide measurement (moles/volume)Ordered By: Fred Diehl on 01-29-2022 CO2 [Moles/Vol] 27.8 mmol/L 22.0-30.0 [facility] Serum or plasma urea nitroge n measurement (mass/volume)Ordered By: Fred Diehl on 01-29-2022 Urea nitrogen [Mass/Vol] 9 mg/dL 02-21 [facility] Specific gravity Auto test s trip (U) [Rel density]Ordered By: PROVIDER TEM on 01-29-2022 Specific gravity (U) [Rel density] 1.013 1.001-1.030 [facility] Urine clarity by refractomet ry automatedOrdered By: PROVIDER TEMP on 01-29-2022 Clarity Refractometry automated (U) Clear Clear [facility] Urine glucose measurement by automated test strip (mass/volume)Ordered By: PROVIDER TEM on 01-29-2022 Glucose Auto test strip (U) [Mass/Vol] Normal mg/dL Normal [facility] Urine hemoglobin detection b y automated test stripOrdered By: PROVIDER TEMP on 01-29-2022 Hemoglobin Auto test strip Ql (U) Negative Negative [facility] Urine leukocyte esterase det ection by automated test stripOrdered By: PROVIDER TEMP on 01-29-2022 Leukocyte esterase Auto test strip Ql (U) Negative Negative [facility] Urobilinogen Auto test strip (U) [Mass/Vol]Ordered By: PROVIDER TEMP on 01-29-2022 Urobilinogen (U) [Mass/Vol] Normal mg/dL Normal [facility] pH Auto test strip (U)Ordere d By: PROVIDER TEMP on 01-29-2022 pH (U) 5.5 [pH] 5.0-9.0 [facility] MRI C-SPINE WO/W CONon 03-12 MRI C-SPINE WO/W CON [address] [place] [address] Patient: JÚNIOR ROWLAND Exam Date: 03/12/2018DOB: 1960 Gender:M : BAKARI WHITE Admission #: [id number] : Order #: [id number] HERE TO VIEW EXAM RADIOLOGY REPORT PROCEDURE: [...] Rico M.D. on 03/12/2018 at 14:46 Normal [facility] *ANAEROBIC CULTUREon 018 *ANAEROBIC CULTURE Clinical Report: (D) Specimen: [id number] Collected: 02/17/2018 15:32 Status: Final Last Updated: 02/22/2018 09:55 ISO (Final) No Anaerobes Isolated Day 5 Normal [facility] Comment on above: Performed By: #### 8 [id number] ####[facility] *BODY FLUID CULTUREon 2017 *BODY FLUID [...] <=0.5/9.5 Susceptible VANCOMYCIN (VA) 1 Susceptible Normal [facility] Comment on above: Performed By: #### 8 5499 ####[facility] Operative Reporton 8 Operative Report MR#: [id number] [facility] Pt. Name: Júnior Rowland Room #: 0C Discharge Date: Birthdate: 1960 OPERATIVE REPORTDATE OF SURGERY: 11/20/2017SURGEON: Alek Mittal M.D.GEOSPATIAL TECHNOLOGIST: Dr. Mt Bowen.PREOPERATIVE DIAGNOSIS: Right knee septic bursitis with right knee woundmeasuring 9 x 3 cm.POSTOPERATIVE DIAGNOSIS: Right knee septic bursitis with right knee woundmeasuring 9 x 3 cm.PROCEDURE PERFORMED:1. Removal of soft tissue gear milling machine set up operator to right lower extremity.2. Irrigation and debridement of right knee wound measuring 9 x 3 cm down to the level of muscle.3. Secondary closure of right knee wound measuring 2 x 3 cm.IMPLANTS REMOVED: DermaClose soft tissue gear milling machine set up operator.ANESTHESIA: General.COMPLICATIONS: None.CLINICAL SUMMARY: The patient is a [...] 11/20/2017/02:34 P/Mt Bowen M.D.Date Trans: 11/20/2017 10:12 P/mmoDN_JN:[id number]: Fatou Ridley M.D. [facility] [place] [address] Normal [facility] POC GLUCOSE LABon 11-20-2017 Glucose mass conc 95 mg/dL Normal 70-100 [facility] Comment on above: Performed By: #### 8 [id number] ####[facility] [facility] [place] [address], [facility] APTTon 11-19-2017 aPTT Coag time (Bld) 31.4 s Normal 25.0-35.0 [facility] Comment on above: Result Comment: ALL RESULTS [...] THIS PURPOSE. Performed By: #### 5 [id number] ####[facility] [facility] [place] [address], [facility] BASIC METABOLIC PANELon 10-31 Calcium mass conc 9.8 mg/dL Normal 8.6-10.3 [facility] Comment on above: Performed By: #### 5 6101 ####[facility] [facility] [place] [address], [facility] Chloride molar conc 100 mmol/L Normal 98-107 [facility] Comment on above: Performed By: #### 5 [id number] ####[facility] [facility] [place] [address], [facility] CO2 molar conc 29 mmol/L Normal 21-31 [facility] Comment on above: Performed By: #### 5 6101 ####[facility] [place] [address], [facility] Creatinine mass conc 0.99 mg/dL Normal 0.70-1.30 [facility] Comment on above: Performed By: #### 5 6101 ####[facility] [place] [address], [facility] GFR/1.73 sq M predicted among blacks MDRD vol rate/area (S/P/Bld) mL/min/{1.73_m2} Normal >60 [facility] Comment on above: Performed By: #### 5 6101 ####[facility] [facility] [place] [address], [facility] GFR/1.73 sq M predicted among non-blacks MDRD vol rate/area (S/P/Bld) mL/min/{1.73_m2} Normal >60 [facility] Comment on above: Performed By: #### 5 6101 ####[facility] [facility] [place] [address], [facility] Glucose mass conc 92 mg/dL Normal 70-100 [facility] Comment on above: Performed By: #### 5 6101 ####[facility] [facility] [place] [address], [facility] Potassium molar conc 4.4 mmol/L Normal 3.5-5.1 [facility] Comment on above: Performed By: #### 5 6101 ####[facility] [facility] [place] [address], [facility] Sodium molar conc 136 mmol/L Normal 136-145 [facility] Comment on above: Performed By: #### 5 6101 ####[facility] [facility] [place] [address], [facility] Urea nitrogen mass conc 16 mg/dL Normal 7-25 [facility] Comment on above: Performed By: #### 5 6101 ####[facility] [place] [address], [facility] CBC W/DIFFon 11-19-2017 ABS BASOPHILS 0.1 10*3/uL Normal 0.0-0.2 [facility] Comment on above: Performed By: #### 5 6101 ####[facility] ABS IMM GRANS 0.1 10*3/uL Normal 0.0-0.2 [facility] Comment on above: Performed By: #### 5 610 ####[facility] ABS NEUTROPHILS 3.3 10*3/uL Normal 1.6-7.6 [facility] Comment on above: Performed By: #### 5 6101 ####[facility] Basophils Auto #/vol (Bld) 0.9 % Normal 0.0-1.0 [facility] Comment on above: Performed By: #### 5 6101 ####[facility] Eosinophils Auto #/vol (Bld) 0.1 10*3/uL Normal 0.0-0.5 [facility] Comment on above: Performed By: #### 5 6101 ####[facility] Eosinophils/100 WBC Auto (Bld) 2.5 % Normal 0.0-6.0 [facility] Comment on above: Performed By: #### 5 6101 ####[facility] Erythrocyte distribution width Auto Ratio (RBC) 14.1 % Normal 11.5-15.0 [facility] Comment on above: Performed By: #### 5 6101 ####[facility] Hematocrit Auto Volume Fraction (Bld) 33.5 % Low 39.0-50.0 [facility] Comment on above: Performed By: #### 5 6101 ####[facility] Hemoglobin mass conc (Bld) 10.4 g/dL Low 13.0-17.0 [facility] Comment on above: Performed By: #### 5 6101 ####[facility] [place] [address] IMMATURE GRANS 1.6 % High 0.0-1.0 [facility] Comment on above: Performed By: #### 5 6101 ####[address] Lymphocytes Auto #/vol (Bld) 1.6 10*3/uL Normal 1.2-4.0 [facility] Comment on above: Performed By: #### 5 6101 ####[address] Lymphocytes/100 WBC Auto (Bld) 28.7 % Normal 20.0-45.0 [facility] Comment on above: Performed By: #### 5 6101 ####[address] MCH Auto Entitic mass (RBC) 27.4 pg Normal 27.0-33.0 [facility] Comment on above: Performed By: #### 5 6101 ####[place] [id number] [address] MCHC Auto mass conc (RBC) 31.0 g/dL Low 32.0-35.0 [facility] Comment on above: Performed By: #### 5 6101 ####[address] MCV Auto Entitic volume (RBC) 88.2 fL Normal 82.0-98.0 [facility] Comment on above: Performed By: #### 5 1 ####[facility] [facility].[address] Monocytes Auto #/vol (Bld) 0.4 10*3/uL Normal 0.1-1.0 [facility] Comment on above: Performed By: #### 5 610 ####[facility] MONOS 7.7 % Normal 5.0-12.0 [facility] Comment on above: Performed By: #### 5 610 ####[facility] Neutrophils/100 WBC Auto (Bld) 58.6 % Normal 40.0-72.0 [facility] Comment on above: Performed By: #### 5 6100 ####[facility] Nucleated RBC/100 WBC Ratio (Bld) 0 % Normal 0-0 [facility] Comment on above: Performed By: #### 5 610 ####[facility] [facility].[address] PLAT CNT 455 10*3/uL High 150-400 [facility] Comment on above: Performed By: #### 5 610 ####[facility] [facility].[address] RBC Auto #/vol (Bld) 3.80 10*6/uL Low 4.20-5.70 [facility] Comment on above: Performed By: #### 5 6101 ####[facility] WBC Auto #/vol (Bld) 5.68 10*3/uL Normal 4.00-10.60 [facility] Comment on above: Performed By: #### 5 6101 ####[facility] [facility].[address] PROTHROMBIN TIMEon 8 INR Coag RelTime (PPP) 1.09 {INR} Normal 0.91-1.16 [facility] Comment on above: Result Comment: [facility] P RECOMMENDED INR FOR WARFARIN THERAPY CONDITION INRPROPHYLAXIS OF VENOUS THROMBOSIS 2-3(HIGH-RISK SURGERY)TREATMENT OF VENOUS THROMBOSIS 2-3TREATMENT OF PULMONARY EMBOLISM 2-3PREVENTION OF SYSTEMIC EMBOLISM: 2-3 ACUTE MYOCARDIAL INFARCTION TISSUE HEART VALVES VALVULAR HEART DISEASE ATRIAL FIBRILLATION RECURRENT SYSTEMIC EMBOLISMMECHANICAL HEART VALVE 2.5-3.5 FROM: ORAL ANTICOAGULANTS. MECHANISM OF ACTION, CLINICALEFFECTIVENESS, AND OPTIMAL THERAPEUTIC RANGE. [id number]. Performed By: #### 5 6101 ####[facility] Prothrombin time (PT) Coag time (PPP) 14.1 s Normal 12.3-14.8 [facility] Comment on above: Result Comment: ALL RESULTS MUST BE INTERPRETED WITH RESPECT TO BLOOD DRAWING ARTIFACTOR DILUTION ERROR OF ANTICOAGULANT AT THE TIME OF SAMPLING. Performed By: #### 5 6101 ####[place] [id number] [facility].[address] Discharge Summaryon 11-19-19 18 Discharge Summary MR#: [id number] [facility] Admitted: 11/02/2017 Discharged: 11/12/2017 Date of : 1960 Physician: Alek Mittal M.D. DISCHARGE SUMMARYPRINCIPAL DIAGNOSES:1. Right knee septic bursitis.2. Morbid obesity.CONSULTS:1. Pain management.2. Infectious Disease.HOSPITAL COURSE: This is a 57-year-old male who presented to [facility] as atransfer from [facility] with complaint of right knee septicbursitis. At [place], he underwent irrigation and debridement. Culturesobtained at that time were positive for MRSA. The patient was started onIV vancomycin during his hospital stay. His symptoms continued to persist,so he was transferred to [facility] for further management. He underwent rightknee [...] 11/17/2017/02:30 P/Maude Espinal, MDDate Trans: 11/17/2017 11:45 P/mmoDN_JN:[id number]: Fatou Ridley M.D. [facility] [place] [address] Kristie Tamayo, DO 629 [facility] [address] [place] [address] Normal [facility] Operative Reporton 8 Operative Report MR#: [id number] [facility] Room #: [id number] Discharge Date: Birthdate: 1960 OPERATIVE REPORTDATE OF [...] is a 57[facility] septic bursitisthat had failed [...] extubated without incident. He was transferred to [facility] in stable condition for postoperative monitoring.POSTOPERATIVE PLAN: The patient will be weightbearing as tolerated to theright lower extremity. He will maintain his dressing until his follow upin 1 week. He will be discharged home with Bactrim, Felda, and a stoolsoftener. We will plan on seeing the patient back in 1 week for woundevaluation and tensioning of the DermaClose device. The patient wasinstructed to call Dr. Mittal's office or the Orthopedic Surgeryresident account solutions analyst with any questions or concerns prior to his followupappointment.Dr. Mittal was present throughout the entirety of the procedure.Electronically Signed by:Alek Mittal M.D. 11/14/2017 01:06 P Alek Mittal M.D. I was present for the entire procedure. Date Dict: 11/11/2017/02:42 P/Maude Espinal, MDDate Trans: 11/12/2017 12:38 A/[id number]:[id number]: Fatou Ridley M.D. [place] [facility] [place] [address] Kristie Tamayo, 629 [facility] [address] [place] [address] Normal [facility] *ANAEROBIC CULTUREon 018 *ANAEROBIC CULTURE Clinical Report: (D) Specimen/Source: SWAB/INTRAOP SPEC Collected: 11/11/2017 14:30 Status: Final Last Updated: 11/16/2017 08:46 (1) 2. Right knee swab. CULT RES (Final) No Anaerobes Isolated 5 Days Normal [facility] Comment on above: Order Comment: No: D o not add to previous draw Performed By: #### 5 6101 ####[address] *ANAEROBIC CULTURE Clinical Report: (D) Specimen/Source: FLUID/INTRAOP SPEC Collected: 11/11/2017 14:29 Status: Final Last Updated: 11/16/2017 08:46 (1) 1. Right knee aspiration. CULT RES (Final) No Anaerobes Isolated 5 Days Normal [facility] Comment on above: Order Comment: No: D o not add to previous draw Performed By: #### 5 6101 ####[place] [id number] *BODY FLUID CULTUREon 2017 *BODY FLUID CULTURE Clinical Report: (D) Specimen/Source: FLUID/INTRAOP SPEC Collected: 11/11/2017 14:29 Status: Final Last Updated: 11/16/2017 09:06 (1) 1. Right knee aspiration. GRAM (Final) No Polys Seen No Bacteria Seen CYTOSPUN (Final) This Gram Stain was done on a cytocentrifuged specimen CULT RES (Final) No Growth Day 5 Normal [facility] Comment on above: Order Comment: No: D o not add to previous draw Performed By: #### 5 6101 ####[facility] [facility].[address] *FUNGAL CULTUREon 11-11-2017 *FUNGAL CULTURE Clinical Report: (D) Specimen/Source: FLUID/INTRAOP SPEC Collected: 11/11/2017 14:29 Status: Final Last Updated: 12/14/2017 15:51 (1) 1. Right knee aspiration. FS (Final) No Yeast or Fungal Elements Seen CULT RES (Final) Culture negative for fungus Normal [facility] Comment on above: Order Comment: No: D o not add to previous draw Performed By: #### 5 6101 ####[facility] [facility].[place], [place] [id number] [place] [address] *WOUND CULTUREon 11-11-2017 *WOUND CULTURE Clinical Report: (D) Specimen/Source: WOUND/INTRAOP SPEC Collected: 11/11/2017 14:30 Status: Final Last Updated: 11/16/2017 09:07 (1) 2. Right knee swab. GRAM (Final) Rare Polys No Bacteria Seen CULT RES (Final) No Growth Day 5 Normal [facility] Comment on above: Order Comment: 2. Ri ght knee swab. Performed By: #### 6 2586 ####[facility] [facility] [place] [address], [facility] POC GLUCOSE LABon 11-11-2017 Glucose mass conc 114 mg/dL High 70-100 [facility] Comment on above: Performed By: #### 6 2586 ####[facility] [facility] [place] [address], [facility] BASIC METABOLIC PANELon 10-30 Calcium mass conc 8.6 mg/dL Normal 8.6-10.3 [facility] Comment on above: Order Comment: No: D o not add to previous draw Performed By: #### 6 2586 ####[facility] [place] [address], [facility] Chloride molar conc 100 mmol/L Normal 98-107 [facility] Comment on above: Order Comment: No: D o not add to previous draw Performed By: #### 6 2586 ####[facility] [place] [address], [place] CO2 molar conc 33 mmol/L High 21-31 [facility] Comment on above: Order Comment: No: D o not add to previous draw Performed By: #### 6 2586 ####[facility] [place] [address], [place] Creatinine mass conc 1.03 mg/dL Normal 0.70-1.30 [facility] Comment on above: Order Comment: No: D o not add to previous draw Performed By: #### 6 2586 ####[facility] [place] [address], [place] GFR/1.73 sq M predicted among blacks MDRD vol rate/area (S/P/Bld) mL/min/{1.73_m2} Normal >60 [facility] Comment on above: Order Comment: No: D o not add to previous draw Performed By: #### 6 2586 ####[facility] [place] [address], [place] GFR/1.73 sq M predicted among non-blacks MDRD vol rate/area (S/P/Bld) mL/min/{1.73_m2} Normal >60 [facility] Comment on above: Order Comment: No: D o not add to previous draw Performed By: #### 6 2586 ####[facility] [place] [address], [place] Glucose mass conc 106 mg/dL High 70-100 [facility] Comment on above: Order Comment: No: D o not add to previous draw Performed By: #### 6 2586 ####[facility] [facility].[address] Potassium molar conc 4.0 mmol/L Normal 3.5-5.1 [facility] Comment on above: Order Comment: No: D o not add to previous draw Performed By: #### 6 2586 ####[facility] [facility].[address] Sodium molar conc 136 mmol/L Normal 136-145 [facility] Comment on above: Order Comment: No: D o not add to previous draw Performed By: #### 6 2586 ####[facility] Urea nitrogen mass conc 11 mg/dL Normal 7-25 [facility] Comment on above: Order Comment: No: D o not add to previous draw Performed By: #### 6 2586 ####[facility] [facility].[address] CBC W/DIFFon 11-09-2017 ABS BASOPHILS 0.0 10*3/uL Normal 0.0-0.2 [facility] Comment on above: Order Comment: No: D o not add to previous draw Performed By: #### 6 2586 ####[facility] [facility].[address] ABS NEUTROPHILS 1.4 10*3/uL Low 1.6-7.6 [facility] Comment on above: Order Comment: No: D o not add to previous draw Performed By: #### 6 2586 ####[facility] [facility].[address] Basophils Auto #/vol (Bld) 0.0 % Normal 0.0-1.0 [facility] Comment on above: Order Comment: No: D o not add to previous draw Performed By: #### 6 2586 ####[facility]3000 [facility] [address], [facility] Eosinophils Auto #/vol (Bld) 0.0 10*3/uL Normal 0.0-0.5 [facility] Comment on above: Order Comment: No: D o not add to previous draw Performed By: #### 6 2586 ####[facility] Eosinophils/100 WBC Auto (Bld) 0.9 % Normal 0.0-6.0 [facility] Comment on above: Order Comment: No: D o not add to previous draw Performed By: #### 6 2586 ####[facility] Erythrocyte distribution width Auto Ratio (RBC) 13.6 % Normal 11.5-15.0 [facility] Comment on above: Order Comment: No: D o not add to previous draw Performed By: #### 6 2586 ####[place] [id number] [address] GIANT PLATELETS Present Normal [facility] Comment on above: Order Comment: No: D o not add to previous draw Performed By: #### 6 2586 ####[facility] [facility].[address] Hematocrit Auto Volume Fraction (Bld) 29.2 % Low 39.0-50.0 [facility] Comment on above: Order Comment: No: D o not add to previous draw Performed By: #### 6 2586 ####[facility] Hemoglobin mass conc (Bld) 9.2 g/dL Low 13.0-17.0 [facility] Comment on above: Order Comment: No: D o not add to previous draw Performed By: #### 6 2586 ####[facility] Lymphocytes Auto #/vol (Bld) 0.7 10*3/uL Low 1.2-4.0 [facility] Comment on above: Order Comment: No: D o not add to previous draw Performed By: #### 6 2586 ####[facility] Lymphocytes/100 WBC Auto (Bld) 30.0 % Normal 20.0-45.0 [facility] Comment on above: Order Comment: No: D o not add to previous draw Performed By: #### 6 2586 ####[facility] [place] [address] MCH Auto Entitic mass (RBC) 27.7 pg Normal 27.0-33.0 [facility] Comment on above: Order Comment: No: D o not add to previous draw Performed By: #### 6 2586 ####[facility] MCHC Auto mass conc (RBC) 31.5 g/dL Low 32.0-35.0 [facility] Comment on above: Order Comment: No: D o not add to previous draw Performed By: #### 6 2586 ####[facility] [place] [address] MCV Auto Entitic volume (RBC) 88.0 fL Normal 82.0-98.0 [facility] Comment on above: Order Comment: No: D o not add to previous draw Performed By: #### 6 2586 ####[address] Monocytes Auto #/vol (Bld) 0.2 10*3/uL Normal 0.1-1.0 [facility] Comment on above: Order Comment: No: D o not add to previous draw Performed By: #### 6 2586 ####[facility] [place] [address], [facility] MONOS 7.3 % Normal 5.0-12.0 [facility] Comment on above: Order Comment: No: D o not add to previous draw Performed By: #### 6 2586 ####[facility] [place] [address], [facility] Neutrophils/100 WBC Auto (Bld) 61.8 % Normal 40.0-72.0 [facility] Comment on above: Order Comment: No: D o not add to previous draw Performed By: #### 6 2586 ####[facility] [place] [address], [facility] NRBC SCAN Present Normal [facility] Comment on above: Order Comment: No: D o not add to previous draw Performed By: #### 6 2586 ####[facility] [place] [address], [facility] Nucleated RBC/100 WBC Ratio (Bld) 0 % Normal 0-0 [facility] Comment on above: Order Comment: No: D o not add to previous draw Performed By: #### 6 2586 ####[facility] [place] [address], [facility] PLAT CNT 211 10*3/uL Normal 150-400 [facility] Comment on above: Order Comment: No: D o not add to previous draw Performed By: #### 6 2586 ####[facility] [place] [address], [facility] RBC Auto #/vol (Bld) 3.32 10*6/uL Low 4.20-5.70 [facility] Comment on above: Order Comment: No: D o not add to previous draw Performed By: #### 6 2586 ####[facility] WBC Auto #/vol (Bld) 2.24 10*3/uL Low 4.00-10.60 [facility] Comment on above: Order Comment: No: D o not add to previous draw Performed By: #### 6 2586 ####[facility] [facility].[address] *BLOOD CULTUREon 11-08-2017 *BLOOD CULTURE Clinical Report: (D) Specimen: BLOOD CULTURE Collected: 11/08/2017 17:46 Status: Final Last Updated: 11/14/2017 06:29 CULT RES (Final) No Growth Day 5 Normal [facility] Comment on above: Performed By: #### 6 2586 ####[place] [address] [facility].[address] BASIC METABOLIC PANELon 10-30 Calcium mass conc 8.5 mg/dL Low 8.6-10.3 [facility] Comment on above: Order Comment: No: D o not add to previous draw Performed By: #### 6 2586 ####[facility] Chloride molar conc 100 mmol/L Normal 98-107 [facility] Comment on above: Order Comment: No: D o not add to previous draw Performed By: #### 6 2586 ####[facility] [facility].[address] CO2 molar conc 33 mmol/L High 21-31 [facility] Comment on above: Order Comment: No: D o not add to previous draw Performed By: #### 6 2586 ####[facility] Creatinine mass conc 0.94 mg/dL Normal 0.70-1.30 [facility] Comment on above: Order Comment: No: D o not add to previous draw Performed By: #### 6 2586 ####[facility] [place] [address], [facility] GFR/1.73 sq M predicted among blacks MDRD vol rate/area (S/P/Bld) mL/min/{1.73_m2} Normal >60 [facility] Comment on above: Order Comment: No: D o not add to previous draw Performed By: #### 6 2586 ####[facility] [place] [address], [facility] GFR/1.73 sq M predicted among non-blacks MDRD vol rate/area (S/P/Bld) mL/min/{1.73_m2} Normal >60 [facility] Comment on above: Order Comment: No: D o not add to previous draw Performed By: #### 6 2586 ####[facility] [place] [address], [facility] Glucose mass conc 96 mg/dL Normal 70-100 [facility] Comment on above: Order Comment: No: D o not add to previous draw Performed By: #### 6 2586 ####[facility] [place] [address], [facility] Potassium molar conc 4.1 mmol/L Normal 3.5-5.1 [facility] Comment on above: Order Comment: No: D o not add to previous draw Performed By: #### 6 2586 ####[facility] [place] [address], [place] Sodium molar conc 134 mmol/L Low 136-145 [facility] Comment on above: Order Comment: No: D o not add to previous draw Performed By: #### 6 2586 ####[facility] [place] [address], [facility] Urea nitrogen mass conc 11 mg/dL Normal 7-25 [facility] Comment on above: Order Comment: No: D o not add to previous draw Performed By: #### 6 2586 ####[facility] CBC W/DIFFon 11-08-2017 ABS BASOPHILS 0.0 10*3/uL Normal 0.0-0.2 [facility] Comment on above: Order Comment: Yes: Add to Previous draw if able Performed By: #### 6 2586 ####[facility] ABS IMM GRANS 0.0 10*3/uL Normal 0.0-0.2 [facility] Comment on above: Order Comment: Yes: Add to Previous draw if able Performed By: #### 6 2586 ####[address] ABS NEUTROPHILS 1.2 10*3/uL Low 1.6-7.6 [facility] Comment on above: Order Comment: Yes: Add to Previous draw if able Performed By: #### 6 2586 ####[address] Basophils Auto #/vol (Bld) 0.8 % Normal 0.0-1.0 [facility] Comment on above: Order Comment: Yes: Add to Previous draw if able Performed By: #### 6 2586 ####[address] Eosinophils Auto #/vol (Bld) 0.1 10*3/uL Normal 0.0-0.5 [facility] Comment on above: Order Comment: Yes: Add to Previous draw if able Performed By: #### 6 2586 ####[place] [address], [facility] Eosinophils/100 WBC Auto (Bld) 4.7 % Normal 0.0-6.0 [facility] Comment on above: Order Comment: Yes: Add to Previous draw if able Performed By: #### 6 2586 ####[address] [place] [address], [place] Erythrocyte distribution width Auto Ratio (RBC) 13.7 % Normal 11.5-15.0 [facility] Comment on above: Order Comment: Yes: Add to Previous draw if able Performed By: #### 6 2586 ####[facility] Hematocrit Auto Volume Fraction (Bld) 31.9 % Low 39.0-50.0 [facility] Comment on above: Order Comment: Yes: Add to Previous draw if able Performed By: #### 6 2586 ####[facility] Hemoglobin mass conc (Bld) 9.6 g/dL Low 13.0-17.0 [facility] Comment on above: Order Comment: Yes: Add to Previous draw if able Performed By: #### 6 2586 ####[facility] IMMATURE GRANS 1.2 % High 0.0-1.0 [facility] Comment on above: Order Comment: Yes: Add to Previous draw if able Performed By: #### 6 2586 ####[facility] Lymphocytes Auto #/vol (Bld) 0.8 10*3/uL Low 1.2-4.0 [facility] Comment on above: Order Comment: Yes: Add to Previous draw if able Performed By: #### 6 2586 ####[facility] Lymphocytes/100 WBC Auto (Bld) 32.7 % Normal 20.0-45.0 [facility] Comment on above: Order Comment: Yes: Add to Previous draw if able Performed By: #### 6 2586 ####[facility] MCH Auto Entitic mass (RBC) 27.6 pg Normal 27.0-33.0 [facility] Comment on above: Order Comment: Yes: Add to Previous draw if able Performed By: #### 6 2586 ####[facility] MCHC Auto mass conc (RBC) 30.1 g/dL Low 32.0-35.0 [facility] Comment on above: Order Comment: Yes: Add to Previous draw if able Performed By: #### 6 2586 ####[facility] MCV Auto Entitic volume (RBC) 91.7 fL Normal 82.0-98.0 [facility] Comment on above: Order Comment: Yes: Add to Previous draw if able Performed By: #### 6 2586 ####[facility] Monocytes Auto #/vol (Bld) 0.4 10*3/uL Normal 0.1-1.0 [facility] Comment on above: Order Comment: Yes: Add to Previous draw if able Performed By: #### 6 2586 ####[facility] MONOS 14.6 % High 5.0-12.0 [facility] Comment on above: Order Comment: Yes: Add to Previous draw if able Performed By: #### 6 2586 ####[facility] Neutrophils/100 WBC Auto (Bld) 46.0 % Normal 40.0-72.0 [facility] Comment on above: Order Comment: Yes: Add to Previous draw if able Performed By: #### 6 2586 ####[facility] Nucleated RBC/100 WBC Ratio (Bld) 0 % Normal 0-0 [facility] Comment on above: Order Comment: Yes: Add to Previous draw if able Performed By: #### 6 2586 ####[facility] [facility].[address] PLAT CNT 228 10*3/uL Normal 150-400 [facility] Comment on above: Order Comment: Yes: Add to Previous draw if able Performed By: #### 6 2586 ####[facility] RBC Auto #/vol (Bld) 3.48 10*6/uL Low 4.20-5.70 [facility] Comment on above: Order Comment: Yes: Add to Previous draw if able Performed By: #### 6 2586 ####[facility] [place] [address].[address] WBC Auto #/vol (Bld) 2.54 10*3/uL Low 4.00-10.60 [facility] Comment on above: Order Comment: Yes: Add to Previous draw if able Performed By: #### 6 2586 ####[address] CBC W/DIFFon 11-07-2017 ABS BASOPHILS 0.0 10*3/uL Normal 0.0-0.2 [facility] Comment on above: Order Comment: No: D o not add to previous draw Performed By: #### 0 0121 ####[facility] [facility].[address] ABS IMM GRANS 0.0 10*3/uL Normal 0.0-0.2 [facility] Comment on above: Order Comment: No: D o not add to previous draw Performed By: #### 0 0121 ####[facility] [place] [address] ABS NEUTROPHILS 1.7 10*3/uL Normal 1.6-7.6 [facility] Comment on above: Order Comment: No: D o not add to previous draw Performed By: #### 0 0121 ####[facility] [place] [address], [facility] Basophils Auto #/vol (Bld) 0.4 % Normal 0.0-1.0 [facility] Comment on above: Order Comment: No: D o not add to previous draw Performed By: #### 0 0121 ####[facility] [place] [address], [facility] Eosinophils Auto #/vol (Bld) 0.1 10*3/uL Normal 0.0-0.5 [facility] Comment on above: Order Comment: No: D o not add to previous draw Performed By: #### 0 0121 ####[facility] [place] [address], [facility] Eosinophils/100 WBC Auto (Bld) 3.6 % Normal 0.0-6.0 [facility] Comment on above: Order Comment: No: D o not add to previous draw Performed By: #### 0 0121 ####[place] [id number] [address] Erythrocyte distribution width Auto Ratio (RBC) 13.3 % Normal 11.5-15.0 [facility] Comment on above: Order Comment: No: D o not add to previous draw Performed By: #### 0 0121 ####[facility] Hematocrit Auto Volume Fraction (Bld) 31.4 % Low 39.0-50.0 [facility] Comment on above: Order Comment: No: D o not add to previous draw Performed By: #### 0 0121 ####[place] [id number] Hemoglobin mass conc (Bld) 9.8 g/dL Low 13.0-17.0 [facility] Comment on above: Order Comment: No: D o not add to previous draw Performed By: #### 0 0121 ####[facility] IMMATURE GRANS 1.1 % High 0.0-1.0 [facility] Comment on above: Order Comment: No: D o not add to previous draw Performed By: #### 0 0121 ####[facility] Lymphocytes Auto #/vol (Bld) 0.6 10*3/uL Low 1.2-4.0 [facility] Comment on above: Order Comment: No: D o not add to previous draw Performed By: #### 0 0121 ####[facility] Lymphocytes/100 WBC Auto (Bld) 21.0 % Normal 20.0-45.0 [facility] Comment on above: Order Comment: No: D o not add to previous draw Performed By: #### 0 0121 ####[facility] MCH Auto Entitic mass (RBC) 28.0 pg Normal 27.0-33.0 [facility] Comment on above: Order Comment: No: D o not add to previous draw Performed By: #### 0 0121 ####[facility] MCHC Auto mass conc (RBC) 31.2 g/dL Low 32.0-35.0 [facility] Comment on above: Order Comment: No: D o not add to previous draw Performed By: #### 0 0121 ####[facility] MCV Auto Entitic volume (RBC) 89.7 fL Normal 82.0-98.0 [facility] Comment on above: Order Comment: No: D o not add to previous draw Performed By: #### 0 0121 ####[facility] Monocytes Auto #/vol (Bld) 0.3 10*3/uL Normal 0.1-1.0 [facility] Comment on above: Order Comment: No: D o not add to previous draw Performed By: #### 0 0121 ####[facility] MONOS 10.9 % Normal 5.0-12.0 [facility] Comment on above: Order Comment: No: D o not add to previous draw Performed By: #### 0 0121 ####[facility] Neutrophils/100 WBC Auto (Bld) 63.0 % Normal 40.0-72.0 [facility] Comment on above: Order Comment: No: D o not add to previous draw Performed By: #### 0 0121 ####[facility] Nucleated RBC/100 WBC Ratio (Bld) 0 % Normal 0-0 [facility] Comment on above: Order Comment: No: D o not add to previous draw Performed By: #### 0 0121 ####[facility] PLAT CNT 237 10*3/uL Normal 150-400 [facility] Comment on above: Order Comment: No: D o not add to previous draw Performed By: #### 0 0121 ####[facility] RBC Auto #/vol (Bld) 3.50 10*6/uL Low 4.20-5.70 Th [facility] Comment on above: Order Comment: No: D o not add to previous draw Performed By: #### 0 0121 ####[facility] [facility] [place] [address], [facility] WBC Auto #/vol (Bld) 2.76 10*3/uL Low 4.00-10.60 Th e [facility] Comment on above: Order Comment: No: D o not add to previous draw Performed By: #### 0 0121 ####[facility] [facility].[address] PROCALCITONINon 11-07-2017 Protein mass conc 0.10 ng/mL Normal 0.00-0.10 [facility] Comment on above: Order Comment: Yes: Add [...] andinitial PCT<0.5ng/mL Performed By: #### 6 2586 ####[facility] [facility] *BLOOD CULTUREon 11-06-2017 *BLOOD CULTURE Clinical Report: (D) Specimen: BLOOD CULTURE Collected: 11/06/2017 11:01 Status: Final Last Updated: 11/11/2017 15:39 CULT RES (Final) No Growth Day 5 Normal [facility] Comment on above: Performed By: #### 0 0121 ####[facility] [facility].[address] BASIC METABOLIC PANELon Calcium mass conc 8.5 mg/dL Low 8.6-10.3 [facility] Comment on above: Order Comment: No: D o not add to previous draw Performed By: #### 5 0608, 88362 ####[address] [place] [address], [facility] Chloride molar conc 102 mmol/L Normal 98-107 [facility] Comment on above: Order Comment: No: D o not add to previous draw Performed By: #### 5 06, 68572 ####[facility] [facility] [place] [address], [facility] CO2 molar conc 30 mmol/L Normal 21-31 [facility] Comment on above: Order Comment: No: D o not add to previous draw Performed By: #### 5 0608, 56942 ####[address] [facility] [place] [address], [facility] Creatinine mass conc 0.91 mg/dL Normal 0.70-1.30 [facility] Comment on above: Order Comment: No: D o not add to previous draw Performed By: #### 5 0608, 00265 ####[address] [facility].[address] GFR/1.73 sq M predicted among blacks MDRD vol rate/area (S/P/Bld) mL/min/{1.73_m2} Normal >60 [facility] Comment on above: Order Comment: No: D o not add to previous draw Performed By: #### 5 0608, 22602 ####[facility] [facility] GFR/1.73 sq M predicted among non-blacks MDRD vol rate/area (S/P/Bld) mL/min/{1.73_m2} Normal >60 [facility] Comment on above: Order Comment: No: D o not add to previous draw Performed By: #### 5 06, 45871 ####[facility] Glucose mass conc 99 mg/dL Normal 70-100 [facility] Comment on above: Order Comment: No: D o not add to previous draw Performed By: #### 5 607, 89003 ####[facility] [facility].[address] Potassium molar conc 4.1 mmol/L Normal 3.5-5.1 [facility] Comment on above: Order Comment: No: D o not add to previous draw Performed By: #### 5 06, 84334 ####[facility] [facility] Sodium molar conc 137 mmol/L Normal 136-145 [facility] Comment on above: Order Comment: No: D o not add to previous draw Performed By: #### 5 06, 47402 ####[facility] [facility].[address] Urea nitrogen mass conc 9 mg/dL Normal 7-25 [facility] Comment on above: Order Comment: No: D o not add to previous draw Performed By: #### 5 0608, 50666 ####[facility] [facility] [place] [address], [facility] CBC W/DIFFon 11-06-2017 ABS BASOPHILS 0.0 10*3/uL Normal 0.0-0.2 [facility] Comment on above: Order Comment: No: D o not add to previous draw Performed By: #### 5 607, 36352 ####[facility] [facility].[address] ABS IMM GRANS 0.0 10*3/uL Normal 0.0-0.2 [facility] Comment on above: Order Comment: No: D o not add to previous draw Performed By: #### 5 607, 92261 ####[facility] ABS NEUTROPHILS 3.9 10*3/uL Normal 1.6-7.6 [facility] Comment on above: Order Comment: No: D o not add to previous draw Performed By: #### 5 607, 55535 ####[address] Basophils Auto #/vol (Bld) 0.5 % Normal 0.0-1.0 [facility] Comment on above: Order Comment: No: D o not add to previous draw Performed By: #### 5 607, 37570 ####[facility] Eosinophils Auto #/vol (Bld) 0.3 10*3/uL Normal 0.0-0.5 [facility] Comment on above: Order Comment: No: D o not add to previous draw Performed By: #### 5 607, 62196 ####[facility] Eosinophils/100 WBC Auto (Bld) 5.2 % Normal 0.0-6.0 [facility] Comment on above: Order Comment: No: D o not add to previous draw Performed By: #### 5 607, 03384 ####[facility] Erythrocyte distribution width Auto Ratio (RBC) 13.1 % Normal 11.5-15.0 [facility] Comment on above: Order Comment: No: D o not add to previous draw Performed By: #### 5 607, 70187 ####[facility] [facility].[address] Hematocrit Auto Volume Fraction (Bld) 30.6 % Low 39.0-50.0 [facility] Comment on above: Order Comment: No: D o not add to previous draw Performed By: #### 5 607, 70511 ####[facility] [facility].[address] Hemoglobin mass conc (Bld) 9.4 g/dL Low 13.0-17.0 [facility] Comment on above: Order Comment: No: D o not add to previous draw Performed By: #### 607, 89894 ####[facility] [place] [address].[address] IMMATURE GRANS 0.3 % Normal 0.0-1.0 [facility] Comment on above: Order Comment: No: D o not add to previous draw Performed By: #### 5 607, 31599 ####[address] [facility].[address] Lymphocytes Auto #/vol (Bld) 1.3 10*3/uL Normal 1.2-4.0 [facility] Comment on above: Order Comment: No: D o not add to previous draw Performed By: #### 5 607, 75726 ####[facility] [facility].[address] Lymphocytes/100 WBC Auto (Bld) 21.6 % Normal 20.0-45.0 [facility] Comment on above: Order Comment: No: D o not add to previous draw Performed By: #### 5 607, 56744 ####[facility] [place] [address].[place] [address], [facility] MCH Auto Entitic mass (RBC) 27.5 pg Normal 27.0-33.0 [facility] Comment on above: Order Comment: No: D o not add to previous draw Performed By: #### 5 607, 16674 ####[facility] [facility] MCHC Auto mass conc (RBC) 30.7 g/dL Low 32.0-35.0 [facility] Comment on above: Order Comment: No: D o not add to previous draw Performed By: #### 5 607, 58849 ####[facility] [facility] MCV Auto Entitic volume (RBC) 89.5 fL Normal 82.0-98.0 [facility] Comment on above: Order Comment: No: D o not add to previous draw Performed By: #### 607, 79741 ####[facility] [facility].[address] Monocytes Auto #/vol (Bld) 0.6 10*3/uL Normal 0.1-1.0 [facility] Comment on above: Order Comment: No: D o not add to previous draw Performed By: #### 5 607, 45040 ####[facility] [facility].[address] MONOS 9.4 % Normal 5.0-12.0 [facility] Comment on above: Order Comment: No: D o not add to previous draw Performed By: #### 5 607, 62802 ####[facility] Neutrophils/100 WBC Auto (Bld) 63.0 % Normal 40.0-72.0 [facility] Comment on above: Order Comment: No: D o not add to previous draw Performed By: #### 5 607, 75731 ####[facility] Nucleated RBC/100 WBC Ratio (Bld) 0 % Normal 0-0 [facility] Comment on above: Order Comment: No: D o not add to previous draw Performed By: #### 5 0608, 64687 ####[facility] [place] [address], [facility] PLAT CNT 260 10*3/uL Normal 150-400 [facility] Comment on above: Order Comment: No: D o not add to previous draw Performed By: #### 5 0608, 59729 ####[facility] [facility].[address] RBC Auto #/vol (Bld) 3.42 10*6/uL Low 4.20-5.70 Th e [facility] Comment on above: Order Comment: No: D o not add to previous draw Performed By: #### 5 0608, 62242 ####[facility] [facility].[address] WBC Auto #/vol (Bld) 6.15 10*3/uL Normal 4.00-10.60 Th e [facility] Comment on above: Order Comment: No: D o not add to previous draw Performed By: #### 5 0608, 45262 ####[facility] [facility].[address] Consultationon 11-06-2017 Consultation MR#: [id number] Rowland Date of Service: 11/06/2017 Room #: 4AB [id number] Birthdate: 1960 Referring Physician: CONSULTATIONREASON FOR CONSULTATION: Fever, possible right knee bursitis/sepsis.HISTORY OF PRESENT ILLNESS: This is a 57-year-old gentleman with no pastmedical history, who [facility]. The patient has right knee septic bursitis andhe underwent for I and D at [facility] The [facility] was [facility] to [facility] to be evaluatedby Orthopedic Service. The [...] A ____MYNOR Johnson, MDDate Dict: 11/06/2017/10:53 A/MYNOR Johnson MDDate Trans: 11/06/2017 11:40 A/mmoDN_JN:[id number] 8cc: Fatou Ridley M.D. [facility] [address] Kristie Tamayo, DO [address] [place] [address] Normal [facility] LACTATE BLOODon 11-06-2017 Lactate molar conc 1.0 mmol/L Normal .5-2.2 [facility] Comment on above: Order Comment: No: D o not add to previous draw Performed By: #### 0 0121 ####[facility] [facility] [place] [address], [facility] MAGNESIUM BLOODon 11-06-2017 Magnesium mass conc 1.9 mg/dL Normal 1.9-2.7 [facility] Comment on above: Order Comment: No: D o not add to previous draw Performed By: #### 0 0121 ####[facility] [facility] [place] [address], [facility] Magnesium mass conc 2.0 mg/dL Normal 1.9-2.7 [facility] Comment on above: Performed By: #### 5 0608, 03498 ####[facility] Operative Reporton Operative Report MR#: [id number] [facility] Name: Júnior Rowland Room #: [id number] [id number] Discharge Date: Birthdate: 1960 OPERATIVE REPORTDATE OF [...] 11/05/2017/02:05 P/Mt Bowen M.D.Date Trans: 11/06/2017 01:02 A/AmparoN_JN:[id number] 2cc: Fatou Ridley M.D. [address] [facility] [address] Kristie Tamayo DO [address] [facility] [address] [facility] [address] Normal [facility] PHOSPHORUS BLOODon 8 Phosphate mass conc 3.0 mg/dL Normal 2.5-5.0 [facility] Comment on above: Performed By: #### 0 0121 ####[address] PORTABLE CHEST 1 VIEWon PORTABLE CHEST 1 VIEW [facility]onDepartment [facility] Mczvl[address] [place] [id number] ==Patient Name: JÚNIOR ROWLAND : 1960ex: MAge: Race: WhiteMRN: [id number]. Location: [id number] Status: IVisit #: [id number] Date: 11/06/2017 9:50:00 AMCompleted Date: 11/06/2017 10:37 AMRequesting Provider: GILDA HARRIS Attending Provider: ALEK MITTAL Report Copy To: Signs & Symptoms: TachycardiaHistory: Patient history not availableComments: R/O Pneumonia, abnormal RCMSExam: PORTABLE CHEST 1 VIEWAccession #: [id number] =========PORTABLE CHEST 1 VIEW 11/06/2017 10:37 AM [...] hilum. Electronically signed by:Elizabeth Serrano. Transcribed by: [email or web address], User Resident: Electronically Signed by: ELIZABETH SERRANO @ 11/06/2017 11:37 AM Normal [facility] Comment on above: Order Comment: No: D o not add to previous draw TROPONIN-Ion 11-06-2017 Troponin I.cardiac mass conc 0.01 ng/mL Normal 0.00-0.04 [facility] Comment on above: Result Comment: REFE RENCE RANGES: 0.00 - 0.04 ng/ml NORMAL 0.05 - 0.50 ng/ml INDETERMINATE > 0.50 ng/ml CONSISTENT WITH AN M.I. Performed By: #### 0 0121 ####[facility] [facility] [place] [address], [facility] URINALYSIS REFLEXon 11-07-19 18 APPEARANCE CLEAR Normal CLEAR [facility] Comment on above: Order Comment: No: D o not add to previous draw Performed By: #### 0 0121 ####[facility] [facility] [place] [address], [facility] BILIRUBIN Negative Normal NEGATIVE [facility] Comment on above: Order Comment: No: D o not add to previous draw Performed By: #### 0 0121 ####[facility] [facility] [place] [address], [facility] BLOOD SMALL Abnormal NEGATIVE [facility] Comment on above: Order Comment: No: D o not add to previous draw Performed By: #### 0 0121 ####[facility] [facility] [place] [address], [facility] COLOR YELLOW Normal YELLOW [facility] Comment on above: Order Comment: No: D o not add to previous draw Performed By: #### 0 0121 ####[facility] [facility] [place] [address], [facility] EPIS OCC Normal FEW,OCC,NON E SEEN [facility] Comment on above: Order Comment: No: D o not add to previous draw Performed By: #### 0 0121 ####[facility] [facility] [place] [address], [facility] GLUCOSE Negative Normal NEGATIVE [facility] Comment on above: Order Comment: No: D o not add to previous draw Performed By: #### 0 0121 ####[facility] [facility] [place] [address], [facility] INR Coag RelTime (Bld) 6-10 Abnormal NONE SEEN Th e [facility] Comment on above: Order Comment: No: D o not add to previous draw Performed By: #### 0 0121 ####[facility] [facility] [place] [address], [facility] KETONE Negative Normal NEGATIVE [facility] Comment on above: Order Comment: No: D o not add to previous draw Performed By: #### 0 0121 ####[facility] [place] [address], [facility] LEUK AVTAR Negative Normal NEGATIVE [facility] Comment on above: Order Comment: No: D o not add to previous draw Performed By: #### 0 0121 ####[facility] MUCUS THREADS OCC Abnormal NONE SEEN [facility] Comment on above: Order Comment: No: D o not add to previous draw Performed By: #### 0 0121 ####[facility] [facility] [place] [address], [facility] NITRITE Negative Normal NEGATIVE [facility] Comment on above: Order Comment: No: D o not add to previous draw Performed By: #### 0 0121 ####[facility] [facility].[address] PH 7.0 Normal 5.0-8.0 [facility] Comment on above: Order Comment: No: D o not add to previous draw Performed By: #### 0 0121 ####[facility] [facility].[address] Protein mass conc Negative Normal NEGATIVE [facility] Comment on above: Order Comment: No: D o not add to previous draw Performed By: #### 0 0121 ####[facility] [facility].[address] SPEC GRAV 1.012 Low 1.015-1.020 [facility] Comment on above: Order Comment: No: D o not add to previous draw Performed By: #### 0 0121 ####[facility] [facility].[address] WBC UA NONE SEEN Normal NONE SEEN [facility] Comment on above: Order Comment: No: D o not add to previous draw Performed By: #### 0 0121 ####[address] Consultationon 11-05-2017 Consultation MR#: [id number] Pt[facility] Name: Júnior Rowland Date of Service: 11/04/2017 Room #: [id number] Birthdate: 1960 Referring Physician: CONSULTATIONCONSULTING SERVICE: Orthopedics.CHIEF [...] 11/04/2017/02:30 P/Elizabeth Martin M.D.Date Trans: 11/05/2017 01:56 A/rivasoDN_JN:[id number] 4cc: Fatou Ridley M.D. [address] [place] [address] Kristie Tamayo DO [address] [facility] [address] Normal [facility] POC GLUCOSE LABon 11-05-2017 Glucose mass conc 99 mg/dL Normal 70-100 [facility] Comment on above: Performed By: #### 5 0608, 94903 ####[facility] VANCOMYCIN TROUGHon 11-06-19 18 VANCOMYCIN TROU 14.8 mcg/mL Normal 5.0-20.0 [facility] Comment on above: Performed By: #### 5 0608, 21991 ####[facility] [facility].[address] Operative Reporton 8 Operative Report MR#: [id number] [facility] Pt[facility] Name: Júnior Rowland Room #: [id number] [id number] Discharge Date: Birthdate: 1960 OPERATIVE REPORTDATE OF [...] bursitis, [facility] He was transferred here for further management [...] nonsteriletourniquet was placed. The patient had a [place] drain from his priorprocedure, which was removed. [...] L of normal saline and Betadine. A tefgdxzccd-ql-xoi dressing was placed. The wound was then [...] 11/03/2017/06:52 P/Maude Espinal, MDDate Trans: 11/03/2017 11:16 P/mmoDN_JN:[id number] 2cc: Fatou Ridley M.D. [address] [address] Kristie Tamayo, [address] [facility] [address] [place] [address] Normal [facility] *ANAEROBIC CULTUREon 018 *ANAEROBIC CULTURE Clinical Report: (D) Specimen/Source: FLUID/INTRAOP SPEC Collected: 11/03/2017 18:37 Status: Final Last Updated: 11/08/2017 06:25 (1) #2 Right Knee Synovial Fluid CULT RES (Final) No Anaerobes Isolated 5 Days Normal [facility] Comment on above: Order Comment: No: D o not add to previous draw Performed By: #### 5 0608, [address] ####[address] *ANAEROBIC CULTURE Clinical Report: (D) Specimen/Source: TISSUE/INTRAOP SPEC Collected: 11/03/2017 18:35 Status: Final Last Updated: 11/08/2017 05:30 (1) #3 Right Knee Tissue ISO (Final) No Anaerobes Isolated Day 5 Normal [facility] Comment on above: Order Comment: No: D o not add to previous draw Performed By: #### 5 0608, 48343 ####[address] *ANAEROBIC CULTURE Clinical Report: (D) Specimen/Source: SWAB/INTRAOP SPEC Collected: 11/03/2017 18:30 Status: Final Last Updated: 11/08/2017 05:30 (1) #1 Right Knee swab ISO (Final) No Anaerobes Isolated Day 5 Normal [facility] Comment on above: Order Comment: No: D o not add to previous draw Performed By: #### 5 0608, 77638 ####[facility] *BODY FLUID CULTUREon 2017 *BODY FLUID CULTURE Clinical Report: (D) Specimen/Source: FLUID/INTRAOP SPEC Collected: 11/03/2017 18:37 Status: Final Last Updated: 11/08/2017 07:01 (1) #2 Right Knee Synovial Fluid GRAM (Final) Rare Polys No Bacteria Seen CULT RES (Final) No Growth Day 5 Normal [facility] Comment on above: Order Comment: #2 Ri ght Knee Synovial Fluid Performed By: #### 3 0318 ####[facility] [place], [place] [id number] [place] [address] *FUNGAL CULTUREon 11-03-2017 *FUNGAL CULTURE Clinical Report: (D) Specimen/Source: FLUID/INTRAOP SPEC Collected: 11/03/2017 18:37 Status: Final Last Updated: 12/04/2017 13:45 (1) #2 Right Knee Synovial Fluid FS (Final) No Yeast or Fungal Elements Seen CULT RES (Final) Culture negative for fungus Normal [facility] Comment on above: Order Comment: #2 Ri ght Knee Synovial Fluid Performed By: #### 3 0323 ####[facility] [place], [place] [id number] [place] [address] *FUNGAL CULTURE Clinical Report: (D) Specimen/Source: TISSUE/INTRAOP SPEC Collected: 11/03/2017 18:35 Status: Final Last Updated: 12/04/2017 13:45 (1) #3 Right Knee Tissue FS (Final) No Yeast or Fungal Elements Seen CULT RES (Final) Culture negative for fungus Normal [facility] Comment on above: Order Comment: No: D o not add to previous draw Performed By: #### 5 0608, 75507 ####[facility] *TISSUE CULTUREon 11-03-2017 *TISSUE CULTURE Clinical Report: (D) Specimen/Source: TISSUE/INTRAOP SPEC Collected: 11/03/2017 18:35 Status: Final Last Updated: 11/06/2017 11:22 (1) #3 Right Knee Tissue GRAM (Final) Many Polys No Bacteria Seen ISO (Final) Staphylococcus aureus Isolated from broth culture Susceptibility To Follow Normal [facility] Comment on above: Order Comment: #3 Ri ght Knee Tissue Performed By: #### 3 0338 ####[facility] *WOUND CULTUREon 11-03-2017 *WOUND CULTURE Clinical [...] No previously released data found. Normal [facility] Comment on above: Order Comment: #1 Ri ght Knee swab Performed By: #### 3 0343 ####[facility] [facility] [place] [address], [facility] C-Reactive Protein (HS)on Protein mass conc 74.31 mg/L Critically high 0.00-3.00 Th e [facility] Comment on above: Result Comment: Resu lts confirmed ondilution. Relative Risk for Future Cardiovascular Event Low <1.00 Average 1.00 - 3.00 High >3.00 Performed By: #### P TT, PT ####[facility] Zumsxmbmkk8715 [address] GRAM STAIN PRIM SOURCEon INR Coag RelTime (Bld) Final report Normal [facility] Comment on above: Performed By: #### P TT, PT ####[facility] Pmdkuctxld4573 [address] Result 1 Comment Normal [facility] Comment on above: Result Comment: No w elio blood cells seen. Performed By: #### P TT, PT ####[facility] Wpuhifdbqn0274 [address] Result 2 No organisms seen Normal [facility] Comment on above: Performed By: #### P TT, PT ####[facility] Czordolwcz5555 [address] POC GLUCOSE LABon 11-03-2017 Glucose mass conc 86 mg/dL Normal 70-100 The [facility] Comment on above: Performed By: #### 8 [id number] ####[facility] [facility] [place] [address], [facility] CBC AUTO DIFFon 11-02-2017 Basophils Auto #/vol (Bld) 0.0 103/ul Normal 0.0-0.1 The [facility] Comment on above: Performed By: #### P TT, PT ####[facility] [address] [place] [address] Dianne Basophils/100 WBC Auto (Bld) 0.5 % Normal 0.2-2.0 [facility] Comment on above: Performed By: #### P TT, PT ####[facility] G[address]ks[address]rie[address] [place] [address] Dianne Eosinophils Auto #/vol (Bld) 0.3 103/ul Normal 0.0-0.7 [facility] Comment on above: Performed By: #### P TT, PT ####[facility] Yrglssls[address] [place] [address] Dianne Eosinophils/100 WBC Auto (Bld) 3.8 % Normal 0.9-7.0 [facility] Comment on above: Performed By: #### P TT, PT ####[facility] [address]rpzxtys[address] [place] [address] Dianne Erythrocyte distribution width Auto Ratio (RBC) 13.4 % Normal 11.0-15.0 [facility] Comment on above: Performed By: #### P TT, PT ####[facility] [address] [place] [address] Dianne Hematocrit Auto Volume Fraction (Bld) 32.4 % Critically low 42.0-54.0 [facility] Comment on above: Performed By: #### P TT, PT ####[facility] [address]jyrm[address] [place] [address] Dianne Hemoglobin mass conc (Bld) 10.2 g/dL Critically low 14.0-18.0 [facility] Comment on above: Performed By: #### P TT, PT ####[facility] Tptydab[address] [place] [address] Dianne IG # 0.05 10e3/ul Critically high 0.00-0.03 [facility] Comment on above: Performed By: #### P TT, PT ####[facility] Hrpcgpgeof[address] [place] [address] Dianne IG % 0.6 % Critically high 0.0-0.5 The [facility] Comment on above: Performed By: #### P TT, PT ####[facility] Lgsyffczrd0204 [address] Dianne Lymphocytes Auto #/vol (Bld) 1.4 103/ul Normal 1.2-3.8 [facility] Comment on above: Performed By: #### P TT, PT ####[facility] Jbfnheejek3214 [address] Dianne Lymphocytes/100 WBC Auto (Bld) 16.8 % Critically low 20.5-60.0 [facility] Comment on above: Performed By: #### P TT, PT ####[facility] [address] [place] [address] Dianne MANUAL DIFF REQ NO Normal [facility] Comment on above: Performed By: #### P TT, PT ####[facility] [address] [place] [address] Dianne MCH Auto Entitic mass (RBC) 28.1 pg Normal 25.9-34.0 [facility] Comment on above: Performed By: #### P TT, PT ####[facility] Pcamsnaxyp[address] [place] [address] Dianne MCHC Auto mass conc (RBC) 31.5 g/dL Normal 29.9-35.2 [facility] Comment on above: Performed By: #### P TT, PT ####[facility] [address] [place] [address] Dianne MCV Auto Entitic volume (RBC) 89.3 fL Normal 80.0-94.0 [facility] Comment on above: Performed By: #### P TT, PT ####[facility] [address]vsjls[address] [place] [address] Dianne Monocytes Auto #/vol (Bld) 0.5 103/ul Normal 0.3-0.8 [facility] Comment on above: Performed By: #### P TT, PT ####[facility] [address] [place], [place] [address]Ythwzk Dianne Monocytes/100 WBC Auto (Bld) 5.8 % Normal 1.7-12.0 [facility] Comment on above: Performed By: #### P TT, PT ####[facility] [address] [place] [address]Fzhlvf Dianne Neutrophils Auto #/vol (Bld) 6.1 103/ul Normal 1.4-6.5 [facility] Comment on above: Performed By: #### P TT, PT ####[facility] Ls[address] [place], [place] [address]Kxkswr Dianne Neutrophils/100 WBC Auto (Bld) 72.5 % Normal 43.0-75.0 [facility] Comment on above: Performed By: #### P TT, PT ####[facility] [address] [place] [address]Iicito Karen Platelet mean volume Auto Entitic volume (Bld) 9.7 fL Normal 9.5-13.5 [facility] Comment on above: Performed By: #### P TT, PT ####[facility] [address] [place] [address]Pmlvth Dianne Platelets Auto #/vol (Bld) 247 103/ul Normal 150-450 [facility] Comment on above: Performed By: #### P TT, PT ####[facility] [address] [place] [address]Uyrfml Dianne RBC Auto #/vol (Bld) 3.63 106/ul Critically low 4.70-6.10 [facility] Comment on above: Performed By: #### P TT, PT ####[facility] [address] [place] [address]Djkkmm Dianne WBC Auto #/vol (Bld) 8.4 103/ul Normal 4.0-11.0 [facility] Comment on above: Performed By: #### P TT, PT ####[facility] [address] [place] [address]Giemfu Karen CBC COMPLETE BLOOD COUNTon 0 11-02-2017 Erythrocyte distribution width Auto Ratio (RBC) 13.2 % Normal 11.5-15.0 [facility] Comment on above: Order Comment: No: D o not add to previous draw Performed By: #### 5 06, [id number] ####[facility] Hematocrit Auto Volume Fraction (Bld) 32.9 % Low 39.0-50.0 [facility] Comment on above: Order Comment: No: D o not add to previous draw Performed By: #### 5 607, 19128 ####[facility] [facility] Hemoglobin mass conc (Bld) 10.4 g/dL Low 13.0-17.0 [facility] Comment on above: Order Comment: No: D o not add to previous draw Performed By: #### 5 607, 67264 ####[facility] MCH Auto Entitic mass (RBC) 28.0 pg Normal 27.0-33.0 [facility] Comment on above: Order Comment: No: D o not add to previous draw Performed By: #### 5 607, 71096 ####[facility] [facility].[address] MCHC Auto mass conc (RBC) 31.6 g/dL Low 32.0-35.0 [facility] Comment on above: Order Comment: No: D o not add to previous draw Performed By: #### 5 607, 53299 ####[facility] MCV Auto Entitic volume (RBC) 88.7 fL Normal 82.0-98.0 [facility] Comment on above: Order Comment: No: D o not add to previous draw Performed By: #### 5 607, 64878 ####[facility] Nucleated RBC/100 WBC Ratio (Bld) 0 % Normal 0-0 [facility] Comment on above: Order Comment: No: D o not add to previous draw Performed By: #### 5 0608, 93963 ####[facility] PLAT CNT 260 10*3/uL Normal 150-400 [facility] Comment on above: Order Comment: No: D o not add to previous draw Performed By: #### 5 0608, 22925 ####[facility] [facility].[address] RBC Auto #/vol (Bld) 3.71 10*6/uL Low 4.20-5.70 [facility] Comment on above: Order Comment: No: D o not add to previous draw Performed By: #### 5 0608, 13525 ####[facility] WBC Auto #/vol (Bld) 7.99 10*3/uL Normal 4.00-10.60 [facility] Comment on above: Order Comment: No: D o not add to previous draw Performed By: #### 5 0608, 55144 ####[facility] COMP METABOLIC PANELon 11-02 Albumin mass conc 3.2 g/dL Low 3.5-5.7 [facility] Comment on above: Order Comment: No: D o not add to previous draw Performed By: #### 0 0121 ####[facility] ALKALINE PHOSPH 48 IU/L Normal 34-104 [facility] Comment on above: Order Comment: No: D o not add to previous draw Performed By: #### 0 0121 ####[facility] [place] [address], [facility] ALT enzyme act/vol 10 U/L Normal 7-52 [facility] Comment on above: Order Comment: No: D o not add to previous draw Performed By: #### 0 0121 ####[facility] [place] [address], [place] AST enzyme act/vol 17 U/L Normal 13-39 [facility] Comment on above: Order Comment: No: D o not add to previous draw Performed By: #### 0 0121 ####[facility] [place] [address], [facility] Bilirubin mass conc 0.5 mg/dL Normal 0.3-1.0 [facility] Comment on above: Order Comment: No: D o not add to previous draw Performed By: #### 0 0121 ####[facility] [place] [address], [facility] Calcium mass conc 9.0 mg/dL Normal 8.6-10.3 [facility] Comment on above: Order Comment: No: D o not add to previous draw Performed By: #### 0 0121 ####[facility] [place] [address], [place] Chloride molar conc 100 mmol/L Normal 98-107 [facility] Comment on above: Order Comment: No: D o not add to previous draw Performed By: #### 0 0121 ####[facility] [place] [address], [place] CO2 molar conc 31 mmol/L Normal 21-31 [facility] Comment on above: Order Comment: No: D o not add to previous draw Performed By: #### 0 0121 ####[facility] [place] [address], [place] Creatinine mass conc 0.84 mg/dL Normal 0.70-1.30 [facility] Comment on above: Order Comment: No: D o not add to previous draw Performed By: #### 0 0121 ####[facility] [place] [address], [place] GFR/1.73 sq M predicted among blacks MDRD vol rate/area (S/P/Bld) mL/min/{1.73_m2} Normal >60 [facility] Comment on above: Order Comment: No: D o not add to previous draw Performed By: #### 0 0121 ####[facility] [place] [address], [place] GFR/1.73 sq M predicted among non-blacks MDRD vol rate/area (S/P/Bld) mL/min/{1.73_m2} Normal >60 [facility] Comment on above: Order Comment: No: D o not add to previous draw Performed By: #### 0 0121 ####[facility] [place] [address], [facility] Glucose mass conc 93 mg/dL Normal 70-100 [facility] Comment on above: Order Comment: No: D o not add to previous draw Performed By: #### 0 0121 ####[facility] [place] [address], [facility] Potassium molar conc 3.9 mmol/L Normal 3.5-5.1 [facility] Comment on above: Order Comment: No: D o not add to previous draw Performed By: #### 0 0121 ####[facility] [place] [address], [facility] Protein mass conc 7.1 g/dL Normal 6.0-8.3 [facility] Comment on above: Order Comment: No: D o not add to previous draw Performed By: #### 0 0121 ####[facility] [place] [address], [place] Sodium molar conc 138 mmol/L Normal 136-145 [facility] Comment on above: Order Comment: No: D o not add to previous draw Performed By: #### 0 0121 ####[facility] [facility] [place] [address], [facility] Urea nitrogen mass conc 12 mg/dL Normal 7-25 [facility] Comment on above: Order Comment: No: D o not add to previous draw Performed By: #### 0 0121 ####[facility] [facility].[address] CRPon 11-02-2017 CRP mass conc 6.4 mg/dL Critically high <=1.0 [facility] Comment on above: Performed By: #### P TT, PT ####[facility] [address] [place], [place] [address]KwiidnMayur Dean PROTHROMBIN TIMEon 8 INR Coag RelTime (PPP) 1.14 {INR} Normal 0.91-1.16 [facility] Comment on above: Order Comment: No: D [...] OF ACTION, CLINICALEFFECTIVENESS, AND OPTIMAL THERAPEUTIC RANGE. [id number];108:231S-246S. Performed By: #### 5 6101 ####[facility] [place] [address], [facility] Prothrombin time (PT) Coag time (PPP) 14.6 s Normal 12.3-14.8 [facility] Comment on above: Order Comment: No: D o not add to previous draw Result Comment: ALL RESULTS MUST BE INTERPRETED WITH RESPECT TO BLOOD DRAWING ARTIFACTOR DILUTION ERROR OF ANTICOAGULANT AT THE TIME OF SAMPLING. Performed By: #### 5 6101 ####[facility] [place] [address], [facility] SED RATE WESTERGRENon 2017 SED RATE 108 mm/hr Critically high <=20 The [facility] Comment on above: Performed By: #### P TT, PT ####[facility] [address] [place], [place] [address]Savmpq Dianne SEDRH METHOD AND NORMAL CH NHUNG 07/06/15. RESULTS ARE NOT AFFECTED BY HEMATOCRIT. Normal [facility] Comment on above: Performed By: #### P TT, PT ####[facility] [address] [place], [place] [address]Dwmnwu Dianne SEDIMENTATION RATEon 018 SED RATE 93 mm/hr High 0-10 [facility] Comment on above: Order Comment: No: D o not add to previous draw Performed By: #### 5 0608, 26290 ####[facility] [place] [address], [facility] TYPE AND SCREENon 11-02-2017 ABO INTERPRETATION O Normal [facility] Comment on above: Performed By: #### 6 2586 ####[facility] [place] [address], [facility] ANTIBODY SCREEN Negative Normal [facility] Comment on above: Performed By: #### 6 2586 ####[facility] [place] [address], [place] RH INTERPRETATION Positive Normal [facility] Comment on above: Performed By: #### 6 2586 ####[facility] CBC AUTO DIFFon 11-01-2017 Basophils Auto #/vol (Bld) 0.1 103/ul Normal 0.0-0.1 [facility] Comment on above: Performed By: #### P TT, PT ####[facility] [address] [place] [address] Dianne Basophils/100 WBC Auto (Bld) 0.5 % Normal 0.2-2.0 [facility] Comment on above: Performed By: #### P TT, PT ####[facility] [address] [place] [address] Dianne Eosinophils Auto #/vol (Bld) 0.3 103/ul Normal 0.0-0.7 [facility] Comment on above: Performed By: #### P TT, PT ####[facility] [address] [place] [address] Dianne Eosinophils/100 WBC Auto (Bld) 3.2 % Normal 0.9-7.0 [facility] Comment on above: Performed By: #### P TT, PT ####[facility] [address]oo[address]ols[address] [place] [address] Dianne Erythrocyte distribution width Auto Ratio (RBC) 13.4 % Normal 11.0-15.0 [facility] Comment on above: Performed By: #### P TT, PT ####[facility] [address]ofsbi[address] [place] [address] Dianne Hematocrit Auto Volume Fraction (Bld) 33.3 % Critically low 42.0-54.0 [facility] Comment on above: Performed By: #### P TT, PT ####[facility] [address] [place] [address] Dianne Hemoglobin mass conc (Bld) 10.3 g/dL Critically low 14.0-18.0 [facility] Comment on above: Performed By: #### P TT, PT ####[facility] [address] [place] [address] Dianne IG # 0.06 10e3/ul Critically high 0.00-0.03 [facility] Comment on above: Performed By: #### P TT, PT ####[facility] Iwv[address]oyxon[address] Dianne IG % 0.6 % Critically high 0.0-0.5 The [facility] Comment on above: Performed By: #### P TT, PT ####[facility] [address] [place] [address] Dianne Lymphocytes Auto #/vol (Bld) 1.6 103/ul Normal 1.2-3.8 [facility] Comment on above: Performed By: #### P TT, PT ####[facility] [address] [place] [address] Dianne Lymphocytes/100 WBC Auto (Bld) 16.4 % Critically low 20.5-60.0 [facility] Comment on above: Performed By: #### P TT, PT ####[facility] [address] [place] [address] Dianne MANUAL DIFF REQ NO Normal [facility] Comment on above: Performed By: #### P TT, PT ####[facility] [address] [place] [address] Dianne MCH Auto Entitic mass (RBC) 27.5 pg Normal 25.9-34.0 [facility] Comment on above: Performed By: #### P TT, PT ####[facility] Iafwhzraax[address] [place] [address] Dianne MCHC Auto mass conc (RBC) 30.9 g/dL Normal 29.9-35.2 [facility] Comment on above: Performed By: #### P TT, PT ####[facility] [address] [place] [address] Dianne MCV Auto Entitic volume (RBC) 88.8 fL Normal 80.0-94.0 [facility] Comment on above: Performed By: #### P TT, PT ####[facility] [address]vir[address] [place], [place] [address] Dianne Monocytes Auto #/vol (Bld) 0.7 103/ul Normal 0.3-0.8 [facility] Comment on above: Performed By: #### P TT, PT ####[facility] [address] [place], [place] [address]Dhiidz Dianne Monocytes/100 WBC Auto (Bld) 6.8 % Normal 1.7-12.0 [facility] Comment on above: Performed By: #### P TT, PT ####[facility] [address] [place], [place] [address]Gerken Dianne Neutrophils Auto #/vol (Bld) 7.0 103/ul Critically high 1.4-6.5 [facility] Comment on above: Performed By: #### P TT, PT ####[facility] [address] [place], [place] [address]Gerken Dianne Neutrophils/100 WBC Auto (Bld) 72.5 % Normal 43.0-75.0 [facility] Comment on above: Performed By: #### P TT, PT ####[facility] [address]sh[address] [place], [place] [address]Gerken Dianne Platelet mean volume Auto Entitic volume (Bld) 9.6 fL Normal 9.5-13.5 [facility] Comment on above: Performed By: #### P TT, PT ####[facility] [address] [place], [place] [address]Gerken Dianne Platelets Auto #/vol (Bld) 231 103/ul Normal 150-450 [facility] Comment on above: Performed By: #### P TT, PT ####[facility] [address] [place] [address]Fputkx Dianne RBC Auto #/vol (Bld) 3.75 106/ul Critically low 4.70-6.10 [facility] Comment on above: Performed By: #### P TT, PT ####[facility] [address] [place] [address]Ixlbed Dianne WBC Auto #/vol (Bld) 9.6 103/ul Normal 4.0-11.0 [facility] Comment on above: Performed By: #### P TT, PT ####[facility] Unj[address]zzlfmq[address] Dianne CRPon 11-01-2017 CRP mass conc 7.6 mg/dL Critically high <=1.0 The [facility] Comment on above: Performed By: #### P TT, PT ####[facility] [address] [place] [address] Dianne SED RATE WESTERGRENon 2017 SED RATE 75 mm/hr Critically high <=20 The [facility] Comment on above: Performed By: #### P TT, PT ####[facility] [address] [place] [address] Dianne SEDRH METHOD AND NORMAL CH NHUNG 07/06/15. RESULTS ARE NOT AFFECTED BY HEMATOCRIT. Normal [facility] Comment on above: Performed By: #### P TT, PT ####[facility] [address] [place] [address] Dianne CBC AUTO DIFFon 10-31-2017 Basophils Auto #/vol (Bld) 0.0 103/ul Normal 0.0-0.1 [facility] Comment on above: Performed By: #### C BC ####[facility] [address] [place] [address] Dianne Basophils/100 WBC Auto (Bld) 0.4 % Normal 0.2-2.0 [facility] Comment on above: Performed By: #### C BC ####[facility] [address] [place] [address] Dianne Eosinophils Auto #/vol (Bld) 0.2 103/ul Normal 0.0-0.7 [facility] Comment on above: Performed By: #### C BC ####[facility] [address] [place] [address] Dianne Eosinophils/100 WBC Auto (Bld) 2.2 % Normal 0.9-7.0 [facility] Comment on above: Performed By: #### C BC ####[facility] [address] [place] [address]Gerken Dianne Erythrocyte distribution width Auto Ratio (RBC) 13.4 % Normal 11.0-15.0 [facility] Comment on above: Performed By: #### C BC ####[facility] [address] [place] [address]Gerken Dianne Hematocrit Auto Volume Fraction (Bld) 33.7 % Critically low 42.0-54.0 [facility] Comment on above: Performed By: #### C BC ####[facility] [address]ixu2976 [place] [address]Gerken Dianne Hemoglobin mass conc (Bld) 10.7 g/dL Critically low 14.0-18.0 [facility] Comment on above: Performed By: #### C BC ####[facility] [address] [place], [place] [address]Gerken Dianne IG # 0.07 10e3/ul Critically high 0.00-0.03 [facility] Comment on above: Performed By: #### C BC ####[facility] [address] [place], [place] [address]Gerken Dianne IG % 0.7 % Critically high 0.0-0.5 The [facility] Comment on above: Performed By: #### C BC ####[facility] [address] [place], [place] [address]Gerken Dianne Lymphocytes Auto #/vol (Bld) 1.4 103/ul Normal 1.2-3.8 [facility] Comment on above: Performed By: #### C BC ####[facility] [address] [place], [place] [address]Gerken Dianne Lymphocytes/100 WBC Auto (Bld) 13.9 % Critically low 20.5-60.0 [facility] Comment on above: Performed By: #### C BC ####[facility] [address] [address]Gerken Dianne MANUAL DIFF REQ NO Normal The [facility] Comment on above: Performed By: #### C BC ####[facility] Dbzinjbgjv[address] [place], [place] [address]Gerkong Dean MCH Auto Entitic mass (RBC) 28.2 pg Normal 25.9-34.0 The [facility] Comment on above: Performed By: #### C BC ####[facility] [address] [place] [address]Qafadv Karen MCHC Auto mass conc (RBC) 31.8 g/dL Normal 29.9-35.2 [facility] Comment on above: Performed By: #### C BC ####[facility] [address] [place] [address] 14[address]Wtowsv Dianne MCV Auto Entitic volume (RBC) 88.9 fL Normal 80.0-94.0 The [facility] Comment on above: Performed By: #### C BC ####[facility] [address] [place], [place] [address]Gerken Dianne Monocytes Auto #/vol (Bld) 0.6 103/ul Normal 0.3-0.8 The [facility] Comment on above: Performed By: #### C BC ####[facility] [address] [place] [address]Amlnel Dianne Monocytes/100 WBC Auto (Bld) 5.8 % Normal 1.7-12.0 [facility] Comment on above: Performed By: #### C BC ####[facility] [address] [place] [address] 37684Vrocdp Dianne Neutrophils Auto #/vol (Bld) 7.9 103/ul Critically high 1.4-6.5 The [facility] Comment on above: Performed By: #### C BC ####[facility] [address] [place] [address] 70878Omwcyv Dianne Neutrophils/100 WBC Auto (Bld) 77.0 % Critically high 43.0-75.0 The [facility] Comment on above: Performed By: #### C BC ####[facility] [address] [place] [address] [id number] Dianne Platelet mean volume Auto Entitic volume (Bld) 9.7 fL Normal 9.5-13.5 The [facility] Comment on above: Performed By: #### C BC ####[facility] Ksrirkicox[address] Dianne Platelets Auto #/vol (Bld) 227 103/ul Normal 150-450 [facility] Comment on above: Performed By: #### C BC ####[facility] [address] [place] [address] Dianne RBC Auto #/vol (Bld) 3.79 106/ul Critically low 4.70-6.10 [facility] Comment on above: Performed By: #### C BC ####[facility] [address] [place] [address] Dianne WBC Auto #/vol (Bld) 10.3 103/ul Normal 4.0-11.0 [facility] Comment on above: Performed By: #### C BC ####[facility] [address] [place] [address] Dianne CRPon 10-31-2017 CRP mass conc 7.4 mg/dL Critically high <=1.0 [facility] Comment on above: Performed By: #### C RP ####[facility] [address] [place] [address] Dianne SED RATE WESTERGRENon 2017 SED RATE 96 mm/hr Critically high <=20 [facility] Comment on above: Performed By: #### S EDR ####[facility] Dors[address]zz[address] [place] [address] Dianne SEDRH METHOD AND NORMAL CH NHUNG 07/06/15. RESULTS ARE NOT AFFECTED BY HEMATOCRIT. Normal [facility] Comment on above: Performed By: #### S EDR ####[facility] [address] [place] [address] Dianne VANCOMYCIN TROUGHon 11-01-19 18 VANCOMYCIN TROUGH 11.3 ug/ml Normal 5.0-20.0 [facility] Comment on above: Performed By: #### V ANCT ####[facility] [address]tx[address]iasils[address] [place] [address] Dianne CBC AUTO DIFFon 10-30-2017 Basophils Auto #/vol (Bld) 0.1 103/ul Normal 0.0-0.1 [facility] Comment on above: Performed By: #### C BC ####[facility] [address] [place], [place] [address]Gerken Dianne Basophils/100 WBC Auto (Bld) 0.5 % Normal 0.2-2.0 [facility] Comment on above: Performed By: #### C BC ####[facility] [address] [place] [address] Dianne Eosinophils Auto #/vol (Bld) 0.2 103/ul Normal 0.0-0.7 [facility] Comment on above: Performed By: #### C BC ####[facility] [address] [place] [address] Dianne Eosinophils/100 WBC Auto (Bld) 1.5 % Normal 0.9-7.0 [facility] Comment on above: Performed By: #### C BC ####[facility] [address] [place] [address] Dianne Erythrocyte distribution width Auto Ratio (RBC) 13.6 % Normal 11.0-15.0 [facility] Comment on above: Performed By: #### C BC ####[facility] [address] [place] [address] Dianne Hematocrit Auto Volume Fraction (Bld) 37.4 % Critically low 42.0-54.0 [facility] Comment on above: Performed By: #### C BC ####[facility] [address] [place] [address] Dianne Hemoglobin mass conc (Bld) 11.5 g/dL Critically low 14.0-18.0 [facility] Comment on above: Performed By: #### C BC ####[facility] [address] [place] [address] Dianne IG # 0.09 10e3/ul Critically high 0.00-0.03 The [facility] Comment on above: Performed By: #### C BC ####[facility] [address] [place] [address] Dianne IG % 0.9 % Critically high 0.0-0.5 The [facility] Comment on above: Performed By: #### C BC ####[facility] Utnuchiuxe[address] [place] [address] Dianne Lymphocytes Auto #/vol (Bld) 1.8 103/ul Normal 1.2-3.8 [facility] Comment on above: Performed By: #### C BC ####[facility] [address]jcla[address] [place] [address] Dianne Lymphocytes/100 WBC Auto (Bld) 18.1 % Critically low 20.5-60.0 [facility] Comment on above: Performed By: #### C BC ####[facility] [address]zswr[address] [place] [address] Dianne MANUAL DIFF REQ NO Normal The [facility] Comment on above: Performed By: #### C BC ####[facility] [address] [place] [address] Dianne MCH Auto Entitic mass (RBC) 27.8 pg Normal 25.9-34.0 [facility] Comment on above: Performed By: #### C BC ####[facility] [address] [place] [address] Dianne MCHC Auto mass conc (RBC) 30.7 g/dL Normal 29.9-35.2 [facility] Comment on above: Performed By: #### C BC ####[facility] Pd[address]if[address] [place] [address] Dianne MCV Auto Entitic volume (RBC) 90.3 fL Normal 80.0-94.0 [facility] Comment on above: Performed By: #### C BC ####[facility] [address] [place] [address] Dianne Monocytes Auto #/vol (Bld) 0.7 103/ul Normal 0.3-0.8 [facility] Comment on above: Performed By: #### C BC ####[facility] [address] [place], [place] [address]Oqekxj Dianne Monocytes/100 WBC Auto (Bld) 6.6 % Normal 1.7-12.0 [facility] Comment on above: Performed By: #### C BC ####[facility] [address] [place] [address] 67[address]Fchcnw Dianne Neutrophils Auto #/vol (Bld) 7.3 103/ul Critically high 1.4-6.5 [facility] Comment on above: Performed By: #### C BC ####[facility] [address] [place] [address]Iaevyq Dianne Neutrophils/100 WBC Auto (Bld) 72.4 % Normal 43.0-75.0 [facility] Comment on above: Performed By: #### C BC ####[facility] [address] [place] [address] 27[address]Wtzvua Dianne Platelet mean volume Auto Entitic volume (Bld) 9.3 fL Critically low 9.5-13.5 [facility] Comment on above: Performed By: #### C BC ####[facility] [address] [place] [address] 106[address]Bcwpcq Dianne Platelets Auto #/vol (Bld) 263 103/ul Normal 150-450 [facility] Comment on above: Performed By: #### C BC ####[facility] [address]xh[address] [place] [address] 09841Vltbre Dianne RBC Auto #/vol (Bld) 4.14 106/ul Critically low 4.70-6.10 [facility] Comment on above: Performed By: #### C BC ####[facility] [address] [place] [address] 975[address]Wqnrrp Dianne WBC Auto #/vol (Bld) 10.1 103/ul Normal 4.0-11.0 [facility] Comment on above: Performed By: #### C BC ####[facility] Z[address]vv[address] [place] [address] 18184Lrcsww Dianne Basophils Auto #/vol (Bld) 0.0 103/ul Normal 0.0-0.1 [facility] Comment on above: Performed By: #### C BC ####[facility] [address] [place], [place] [address]Uzrvle Dianne Basophils/100 WBC Auto (Bld) 0.4 % Normal 0.2-2.0 [facility] Comment on above: Performed By: #### C BC ####[facility] [address] [place] [address] 42380Dxoocj Dianne Eosinophils Auto #/vol (Bld) 0.2 103/ul Normal 0.0-0.7 [facility] Comment on above: Performed By: #### C BC ####[facility] Dsoshskooa[address] [place] [address] 18244Lgkqhe Dianne Eosinophils/100 WBC Auto (Bld) 1.5 % Normal 0.9-7.0 [facility] Comment on above: Performed By: #### C BC ####[facility] J[address]yohjfr[address] [place], [place] [address]Gerken Dianne Erythrocyte distribution width Auto Ratio (RBC) 13.6 % Normal 11.0-15.0 [facility] Comment on above: Performed By: #### C BC ####[facility] Vcxvplyf[address] [place] [address] 217[address]Alixnt Dianne Hematocrit Auto Volume Fraction (Bld) 37.2 % Critically low 42.0-54.0 [facility] Comment on above: Performed By: #### C BC ####[facility] Zrynnqjfqj[address] [place], [place] [address]Gerken Dianne Hemoglobin mass conc (Bld) 11.7 g/dL Critically low 14.0-18.0 [facility] Comment on above: Performed By: #### C BC ####[facility] Vavatdojfw[address] [place], [place] [address]Gerken Dianne IG # 0.08 10e3/ul Critically high 0.00-0.03 [facility] Comment on above: Performed By: #### C BC ####[facility] Tivsqwfpua[address] [place], [place] [address]Gerken Dianne IG % 0.8 % Critically high 0.0-0.5 [facility] Comment on above: Performed By: #### C BC ####[facility] [address] [place] [address]Gerken Dianne Lymphocytes Auto #/vol (Bld) 1.7 103/ul Normal 1.2-3.8 [facility] Comment on above: Performed By: #### C BC ####[facility] R[address]pecpm[address] [place], [place] [address]Lqlxqx Dianne Lymphocytes/100 WBC Auto (Bld) 17.0 % Critically low 20.5-60.0 [facility] Comment on above: Performed By: #### C BC ####[facility] Kzzyyovdna[address] [place], [place] [address]Gerken Dianne MANUAL DIFF REQ NO Normal [facility] Comment on above: Performed By: #### C BC ####[facility] Wooqrznuum7[address] [place], [place] [address]Gerken Dianne MCH Auto Entitic mass (RBC) 28.2 pg Normal 25.9-34.0 [facility] Comment on above: Performed By: #### C BC ####[facility] [address]zxhtr[address] [place], [place] [address]Gerken Dianne MCHC Auto mass conc (RBC) 31.5 g/dL Normal 29.9-35.2 [facility] Comment on above: Performed By: #### C BC ####[facility] Ritzxrnwqs[address] [place], [place] [address]Gerken Dianne MCV Auto Entitic volume (RBC) 89.6 fL Normal 80.0-94.0 [facility] Comment on above: Performed By: #### C BC ####[facility] [address]ymzemha[address] [place], [place] [address]Gerken Dianne Monocytes Auto #/vol (Bld) 0.7 103/ul Normal 0.3-0.8 [facility] Comment on above: Performed By: #### C BC ####[facility] Xuucncjvix[address] [place], [place] [address]Gerken Dianne Monocytes/100 WBC Auto (Bld) 7.0 % Normal 1.7-12.0 [facility] Comment on above: Performed By: #### C BC ####[facility] Jfxouzqiig2124 [address] Dianne Neutrophils Auto #/vol (Bld) 7.5 103/ul Critically high 1.4-6.5 [facility] Comment on above: Performed By: #### C BC ####[facility] Skumpzdfap[address]109 [address] Dianne Neutrophils/100 WBC Auto (Bld) 73.3 % Normal 43.0-75.0 [facility] Comment on above: Performed By: #### C BC ####[facility] [address] [place] [address] Dianne Platelet mean volume Auto Entitic volume (Bld) 9.9 fL Normal 9.5-13.5 [facility] Comment on above: Performed By: #### C BC ####[facility] Tum[address]jyuas[address] [place] [address] Dianne Platelets Auto #/vol (Bld) 288 103/ul Normal 150-450 [facility] Comment on above: Performed By: #### C BC ####[facility] Eekogcnz[address] [place] [address] Dianne RBC Auto #/vol (Bld) 4.15 106/ul Critically low 4.70-6.10 [facility] Comment on above: Performed By: #### C BC ####[facility] [address]upcxqj[address] [place] [address] Dianne WBC Auto #/vol (Bld) 10.2 103/ul Normal 4.0-11.0 [facility] Comment on above: Performed By: #### C BC ####[facility] [address]cexf[address] [place] [address] Dianne CRPon 10-30-2017 CRP mass conc 6.9 mg/dL Critically high <=1.0 [facility] Comment on above: Performed By: #### C RP ####[facility] [address]wctpr[address] [place] [address] Dianne SED RATE WESTERGRENon 2017 SED RATE 94 mm/hr Critically high <=20 [facility] Comment on above: Performed By: #### S EDR ####[facility] [address] [place], [place] [address]Ger[address] Dianne SEDRH METHOD AND NORMAL CH NHUNG 07/06/15. RESULTS ARE NOT AFFECTED BY HEMATOCRIT. Normal [facility] Comment on above: Performed By: #### S EDR ####[facility] [address] [place] [address] Dianne CULTURE ANAEROBICon 10-30-19 18 CULTURE ANAEROBIC Culture Observations : FINAL, SCANNED RESULTS TO FOLLOW IN HPF Culture Observations: CALLED/FAXED TO DR TAMAYO/MENDOZA 11/03/2017 1030 [facility] Comment on above: Performed By: #### P TT, PT ####[facility] In[address] [place] [address] Dianne CULTURE OTHERon 10-29-2017 CULTURE OTHER Culture Observations : Prelim results given to Dr Tamayo 11-01-17 @131 -[facility] Culture Observations: Final, scanned results to follow in HPF Normal [facility] Comment on above: Performed By: #### P TT, PT ####[facility] [address] [place], [place] [address]Ger[address] Dianne PROTIMEon 10-28-2017 INR Coag RelTime (Bld) SEE BELOW Normal [facility] Comment on above: Result Comment: MOOKIE RED INR: 2.0 - 3.0 CONDITIONS NOT LISTED BELOW 2.5 - 3.5 FOR PROSTHETIC HEART VALVE REPLACEMENT 2.5 - 3.5 RECURRENT THROMBOSIS Performed By: #### P TT, PT ####[facility] [address] [place] [address] Dianne INR Coag RelTime (PPP) 1.10 {INR} Normal [facility] Comment on above: Performed By: #### P TT, PT ####[facility] U[address]by[address] Dianne Prothrombin time (PT) Coag time (PPP) 11.3 s Normal 9.0-11.6 [facility] Comment on above: Performed By: #### P TT, PT ####[facility] [address] [place], [place] [address]TvstthMayur Dean PT NORMAL PLEASE NOTE: NORMAL RANGE CHANGE 02-16-2014 DUE TO REAGENT LOT CHANGE Normal [facility] Comment on above: Performed By: #### P TT, PT ####[facility] [address] [place], [place] [address]JiyuraMayur Dean PTTon 10-28-2017 aPTT Coag time (Bld) 30.1 s Normal 22.3-36.2 [facility] Comment on above: Performed By: #### P TT, PT ####[facility] [address] [place], [place] [address]CwkhxfMayur Dean aPTT Coag time (Bld) PLEASE NOTE: NORMAL RANGE CHANGE 04-25-2015 DUE TO REAGENT LOT CHANGE Normal [facility] Comment on above: Performed By: #### P TT, PT ####[facility] [address] [place], [place] [address]ZdvcwlMayur Dean Vital Signs Date Time Vital Sign Value Performing Clinician Facility 01-10-2025 15:08-0400 Body height 182.88 cm Bakari Je DO Work Phone: [facility] 01-10-2025 15:08-0400 Body mass index (BMI) [Ratio] 54.5 kg/m2 Bakari Je DO Work Phone: [facility] 01-10-2025 15:08-0400 Body temperature 98 [degF] Bakari Je DO Work Phone: [facility] 01-10-2025 15:08-0400 Body weight 182.34 kg Bakari Je DO Work Phone: [facility] 01-10-2025 15:08-0400 Heart rate 100 /min Bakari White DO Work Phone: [facility] 01-10-2025 15:08-0400 Respiratory rate 18 /min Bakari White DO Work Phone: [facility] 01-10-2025 15:08-0400 SaO2% (BldA) [Mass fraction] 97 % Bakari White DO Work Phone: [facility] 07-19-2024 14:53-0500 Body temperature 97.3 [degF] [facility] 07-19-2024 14:53-0500 Body weight 181.43 kg [facility] 07-19-2024 14:53-0500 Diastolic blood pressure 94 mm[Hg] [facility] 07-19-2024 14:53-0500 Heart rate 76 /min [facility] 07-19-2024 14:53-0500 Respiratory rate 24 /min [facility] 07-19-2024 14:53-0500 Systolic blood pressure 172 mm[Hg] [facility] 07-11-2024 15:26-0500 Body height 182.88 cm Bakari White DO Work Phone: [facility] 07-11-2024 15:26-0500 Body mass index (BMI) [Ratio] 54.5 kg/m2 Bakari White DO Work Phone: [facility] 07-11-2024 15:26-0500 Body temperature 101.2 [degF] Bakari White DO Work Phone: [facility] 07-11-2024 15:26-0500 Body weight 182.34 kg Bakari White DO Work Phone: [facility] 07-11-2024 15:26-0500 Diastolic blood pressure 83 mm[Hg] Bakari Branchmarkos DO Work Phone: [facility] 07-11-2024 15:26-0500 Heart rate 93 /min Bakari Wellsperfecto DO Work Phone: [facility] 07-11-2024 15:26-0500 Respiratory rate 18 /min Bakari White DO Work Phone: [facility] 07-11-2024 15:26-0500 SaO2% (BldA) [Mass fraction] 98 % Bakari White DO Work Phone: [facility] 07-11-2024 15:26-0500 Systolic blood pressure 138 mm[Hg] Bakari White DO Work Phone: [facility] 05-27-2024 08:38-0500 Body height 182.88 cm Bakari White DO Work Phone: [facility] 05-27-2024 08:38-0500 Body mass index (BMI) [Ratio] 54.1 kg/m2 Bakari White DO Work Phone: [facility] 05-27-2024 08:38-0500 Body weight 180.98 kg Bakari White DO Work Phone: [facility] 05-27-2024 08:38-0500 Diastolic blood pressure 92 mm[Hg] Bakari White DO Work Phone: [facility] 05-27-2024 08:38-0500 Heart rate 70 /min Bakari White DO Work Phone: [facility] 05-27-2024 08:38-0500 SaO2% (BldA) [Mass fraction] 96 % Bakari White DO Work Phone: [facility] 05-27-2024 08:38-0500 Systolic blood pressure 158 mm[Hg] Bakari Branchi DO Work Phone: [facility] 04-19-2024 14:19-0500 Diastolic blood pressure 94 mm[Hg] Bakari Branchi DO Work Phone: [facility] 04-19-2024 14:19-0500 Systolic blood pressure 162 mm[Hg] Bakari Branchi DO Work Phone: [facility] 04-19-2024 14:03-0500 Body height 182.88 cm Bakari White DO Work Phone: [facility] 04-19-2024 14:03-0500 Body mass index (BMI) [Ratio] 53 kg/m2 Bakari White DO Work Phone: [facility] 04-19-2024 14:03-0500 Body weight 177.35 kg Bakari White DO Work Phone: [facility] 04-19-2024 14:03-0500 Heart rate 80 /min Bakari White DO Work Phone: [facility] 04-19-2024 14:03-0500 Respiratory rate 20 /min Bakari White DO Work Phone: [facility] 04-19-2024 14:03-0500 SaO2% (BldA) [Mass fraction] 99 % Bakari White DO Work Phone: [facility] 04-13-2024 12:26-0500 Body height 182.9 cm Darlene Brito PA Work Phone: [facility] 04-13-2024 12:26-0500 Diastolic blood pressure 84 mm[Hg] Darlene Brito PA Work Phone: [facility] 04-13-2024 12:26-0500 Heart rate 88 /min Darlene Brito PA Work Phone: [facility] 04-13-2024 12:26-0500 Respiratory rate 16 /min Darlene Brito PA Work Phone: [facility] 04-13-2024 12:26-0500 SaO2% (BldA) [Mass fraction] 96 % Darlene Brito PA Work Phone: [facility] 04-13-2024 12:26-0500 Systolic blood pressure 142 mm[Hg] Darlene Brito PA Work Phone: [facility] 03-02-2024 08:43-0400 Body height 182.9 cm Mario Mensah [employer] Work Phone: [facility] 03-02-2024 08:43-0400 Body mass index (BMI) [Ratio] 53.16 kg/m2 Mario Mensah [employer] Work Phone: [facility] 03-02-2024 08:43-0400 Body weight 177.81 kg Mario Mensah [employer] Work Phone: [facility] 03-02-2024 08:43-0400 Diastolic blood pressure 88 mm[Hg] Mario Mensah [employer] Work Phone: [facility] 03-02-2024 08:43-0400 Heart rate 73 /min Mario Mensah [employer] Work Phone: [facility] 03-02-2024 08:43-0400 Systolic blood pressure 153 mm[Hg] Mario Mensah [employer] Work Phone: [facility] 05-19-2023 14:00-0500 Body height 182.88 cm Bakari Je Other [employer] Other 05-19-2023 14:00-0500 Body mass index (BMI) [Ratio] 52.48 kg/m2 Bakari Je Other [employer] Other 05-19-2023 14:00-0500 Body weight 175.54 kg Bakari Je Other [employer] Other 05-19-2023 14:00-0500 Diastolic blood pressure 86 mm[Hg] Bakari White Other [employer] Other 05-19-2023 14:00-0500 Respiratory rate 18 /min Bakari Je Other [employer] Other 05-19-2023 14:00-0500 SaO2% (BldA) [Mass fraction] 100 % Bakari White Other [employer] Other 05-19-2023 14:00-0500 Systolic blood pressure 130 mm[Hg] Bakari White Other [employer] Other 02-24-2023 09:30-0400 Body height 182.88 cm Bakari White Other [employer] Other 02-24-2023 09:30-0400 Body mass index (BMI) [Ratio] 50.99 kg/m2 Bakari White Other [employer] Other 02-24-2023 09:30-0400 Body weight 170.55 kg Bakari White Other [employer] Other 02-24-2023 09:30-0400 Respiratory rate 18 /min Bakari White Other [employer] Other 02-24-2023 09:30-0400 SaO2% (BldA) [Mass fraction] 99 % Bakari White Other [employer] Other 11-21-2022 10:00-0400 Body height 182.88 cm Bakari White Other [employer] Other 11-21-2022 10:00-0400 Body mass index (BMI) [Ratio] 52.21 kg/m2 Bakari White Other [employer] Other 11-21-2022 10:00-0400 Body temperature 98.6 [degF] Bakari White Other [employer] Other 11-21-2022 10:00-0400 Body weight 174.64 kg Bakari White Other [employer] Other 11-21-2022 10:00-0400 Diastolic blood pressure 86 mm[Hg] Bakari White Other [employer] Other 11-21-2022 10:00-0400 Respiratory rate 20 /min Bakari White Other [employer] Other 11-21-2022 10:00-0400 SaO2% (BldA) [Mass fraction] 100 % Bakari White Other [employer] Other 11-21-2022 10:00-0400 Systolic blood pressure 130 mm[Hg] Bakari White Other [employer] Other 06-13-2022 17:54-0500 Respiratory rate 20 /min Ajay Galvan MD Work Phone: [employer] 06-13-2022 07:15-0500 Body temperature 96.8 [degF] Ajay Galvan MD Work Phone: [employer] 06-13-2022 07:15-0500 Diastolic blood pressure 82 mm[Hg] Ajay Galvan MD Work Phone: [employer] 06-13-2022 07:15-0500 Heart rate 71 /min Ajay Galvan MD Work Phone: [employer] 06-13-2022 07:15-0500 SaO2% (BldA) [Mass fraction] 96 % Ajay Galvan MD Work Phone: [employer] 06-13-2022 07:15-0500 Systolic blood pressure 125 mm[Hg] Ajay Galvan MD Work Phone: [facility] [employer] 06-13-2022 04:52-0500 Body mass index (BMI) [Ratio] 50.26 kg/m2 Ajay Galvan MD Work Phone: [employer] 06-13-2022 04:52-0500 Body weight 168.1 kg Ajay Galvan MD Work Phone: [employer] Comment on above: 1st weight obtained on floor 06-12-2022 09:00-0500 Body height 182.9 cm Ajay Galvan MD Work Phone: [employer] 06-09-2022 10:43-0500 Body height 182.9 cm Ajay Galvan MD Work Phone: [employer] 06-09-2022 10:43-0500 Body mass index (BMI) [Ratio] 49.91 kg/m2 Ajay Galvan MD Work Phone: [employer] 06-09-2022 10:43-0500 Body temperature 97.11 [degF] Ajay Galvan MD Work Phone: [employer] 06-09-2022 10:43-0500 Body weight 166.92 kg Ajay Galvan MD Work Phone: [employer] 06-09-2022 10:43-0500 Diastolic blood pressure 81 mm[Hg] Ajay Galvan MD Work Phone: [employer] 06-09-2022 10:43-0500 Heart rate 70 /min Ajay Galvan MD Work Phone: [employer] 06-09-2022 10:43-0500 Respiratory rate 18 /min Ajay Galvan MD Work Phone: [employer] 06-09-2022 10:43-0500 SaO2% (BldA) [Mass fraction] 97 % Ajay Galvan MD Work Phone: [employer] 06-09-2022 10:43-0500 Systolic blood pressure 178 mm[Hg] Ajay Galvan MD Work Phone: [facility] [employer] 05-19-2022 14:00-0500 Body height 182.88 cm Bakari White Other [employer] Other 05-19-2022 14:00-0500 Body mass index (BMI) [Ratio] 50.45 kg/m2 Bakari White Other [employer] Other 05-19-2022 14:00-0500 Body weight 168.74 kg Bakari White Other [employer] Other 05-19-2022 14:00-0500 Diastolic blood pressure 91 mm[Hg] Bakari White Other [employer] Other 05-19-2022 14:00-0500 Respiratory rate 20 /min Bakari White Other [employer] Other 05-19-2022 14:00-0500 SaO2% (BldA) [Mass fraction] 100 % Bakari White Other [employer] Other 05-19-2022 14:00-0500 Systolic blood pressure 152 mm[Hg] Bakari Damonelmira Other [employer] Other 05-12-2022 14:21-0500 Body height 182.9 cm Ajay Galvan MD Work Phone: [employer] 05-12-2022 14:21-0500 Body mass index (BMI) [Ratio] 49.31 kg/m2 Ajay Galvan MD Work Phone: [facility] [employer] 05-12-2022 14:21-0500 Body temperature 96.8 [degF] Ajay Galvan MD Work Phone: [facility] 05-12-2022 14:21-0500 Body weight 164.93 kg Ajay Galvan MD Work Phone: [facility] 05-12-2022 14:21-0500 Diastolic blood pressure 86 mm[Hg] Ajay Galvan MD Work Phone: [facility] 05-12-2022 14:21-0500 Heart rate 74 /min Ajay Galvan MD Work Phone: [facility] 05-12-2022 14:21-0500 Respiratory rate 20 /min Ajay Galvan MD Work Phone: [facility] 05-12-2022 14:21-0500 SaO2% (BldA) [Mass fraction] 97 % Ajay Galvan MD Work Phone: [facility] 05-12-2022 14:21-0500 Systolic blood pressure 133 mm[Hg] Ajay Galvan MD Work Phone: [facility] 01-29-2022 15:56-0400 Diastolic blood pressure 92 mm[Hg] DO Bakari White Work Phone: [facility] 01-29-2022 15:56-0400 Heart rate 63 /min DO Bakari White Work Phone: [facility] 01-29-2022 15:56-0400 Respiratory rate 18 /min DO Bakari White Work Phone: [facility] 01-29-2022 15:56-0400 SaO2% (BldA) [Mass fraction] 96 % DO Bakari White Work Phone: [facility] 01-29-2022 15:56-0400 Systolic blood pressure 165 mm[Hg] DO Bakari White Work Phone: [facility] 01-29-2022 11:10-0400 Body height 182.88 cm DO Bakari White Work Phone: [facility] 01-29-2022 11:10-0400 Body temperature 98.8 [degF] DO Bakari White Work Phone: [facility] 01-29-2022 11:10-0400 Body weight 170 kg DO Bakari White Work Phone: [facility] 01-08-2022 15:30-0400 Body height 182.88 cm Bakari White Other [employer] [facility] [employer] Other 01-08-2022 15:30-0400 Diastolic blood pressure 84 mm[Hg] Bakari White Other [employer] [facility] [employer] Other 01-08-2022 15:30-0400 Respiratory rate 20 /min Bakari White Other [employer] Other 01-08-2022 15:30-0400 SaO2% (BldA) [Mass fraction] 98 % Bakari White Other [employer] Other 01-08-2022 15:30-0400 Systolic blood pressure 132 mm[Hg] Bakari White Other [employer] Other Encounters Encounter Date Encounter Type Care Provider Facility Start: 01-10-2025 End: 01-10-2025 ambulatory Bakari White DO Work Phone: [facility] Work Phone: Start: 01-10-2025 End: 01-10-2025 Patient encounter procedure Reyna Ferreira TECHNICAL SALES REPRESENTATIVE -[facility] [place] Work Phone: Start: 10-10-2024 End: 10-10-2024 ambulatory Apolonia Coleman MD Facility:[facility] Start: 09-19-2024 End: 09-19-2024 ambulatory Apolonia Coleman MD Facility:[facility] Start: 09-05-2024 ambulatory Bakari White Facil ity:[facility] Start: 07-19-2024 End: 07-19-2024 ambulatory [facility] Work Phone: Start: 07-19-2024 End: 07-19-2024 Patient encounter procedure [facility] Work Phone: Start: 07-11-2024 End: 07-11-2024 ambulatory Bakari White DO Work Phone: [facility] Work Phone: Start: 07-11-2024 End: 07-11-2024 Patient encounter procedure Bakari White DO Work Phone: [facility] [place] Work Phone: Start: 07-11-2024 End: 07-20-2024 Telephone encounter Dusty Patterson PT Work Phone: [facility] Comment on above: re: PT status and au th given; FU; Final Start: 07-06-2024 End: 07-06-2024 Bamboo flowsheet Louisa Nikunjbley GRADUATE ASSISTANT [facility] Start: 07-06-2024 End: 07-06-2024 Bamboo flowsheet Louisa Kelbley GRADUATE ASSISTANT [facility] Start: 07-06-2024 End: 07-06-2024 ambulatory Louisa Calvinjuly GRADUATE ASSISTANT [facility] Comment on above: Radiculopathy, lumba r region (Primary Dx); Difficulty walking; Weakness of both lower extremities Start: 06-29-2024 End: 06-29-2024 Bamboo flowsheet Dusty T Luizadavid PT Work Phone: [facility] Start: 06-29-2024 End: 06-29-2024 Bamboo flowsheet Dusty Patterson PT Work Phone: [facility] Start: 06-29-2024 End: 06-29-2024 ambulatory Dusty Patterson PT Work Phone: [facility] Comment on above: Radiculopathy, lumba r region (Primary Dx); Difficulty walking; Weakness of both lower extremities Start: 06-08-2024 End: 06-08-2024 ambulatory Apolonia Coleman MD [facility] Start: 05-27-2024 End: 05-27-2024 Patient encounter procedure Bakari White DO Work Phone: [facility] Work Phone: Start: 05-16-2024 End: 05-16-2024 ambulatory Apolonia Coleman MD Facility: [place] Start: 04-19-2024 End: 04-19-2024 ambulatory Bakari White DO Work Phone: [facility] Work Phone: Start: 04-19-2024 End: 04-19-2024 Encounter for general adult medical examination without abnormal findings Bakari White DO Work Phone: [facility] Start: 04-19-2024 End: 04-19-2024 Patient encounter procedure Bakari White DO Work Phone: [facility] Work Phone: Start: 04-13-2024 End: 04-13-2024 Bamboo flowsheet Darlene Brito PA Work Phone: [facility] Start: 04-13-2024 End: 04-13-2024 Bamboo flowsheet Darlene Brito PA Work Phone: [facility] Start: 04-13-2024 End: 04-13-2024 Office outpatient visit 25 minutes Darlene Brito PA Work Phone: [facility] Comment on above: Polyneuropathy (Prim jerry Dx); Painful legs and moving toes of left foot; Other specified peripheral vascular diseases (CMS/HCC) Start: 04-13-2024 End: 04-13-2024 ambulatory DARLENE BRITO Not Available Start: 04-13-2024 End: 04-13-2024 Patient encounter procedure Bakari Je DO Work Phone: [facility] Work Phone: Start: 04-13-2024 End: 04-13-2024 ambulatory Bakari Je DO Work Phone: [facility] Work Phone: Start: 03-02-2024 End: 03-02-2024 Bamboo flowsheet Mario C Windnagel FLOUR DISTRIBUTOR [facility] Start: 03-02-2024 End: 03-02-2024 Bamboo flowsheet Mario C Windnagel FLOUR DISTRIBUTOR Work Phone: [facility] [place] [address] Start: 03-02-2024 End: 03-02-2024 Office outpatient visit 25 minutes Mario C Windnagel FLOUR DISTRIBUTOR [facility] Comment on above: Polyneuropathy (Prim jerry Dx) Start: 03-02-2024 End: 03-02-2024 ambulatory MARIO C WINDNAGEL Not Available Start: 02-24-2024 End: 02-24-2024 Emergency department patient visit BAKARI WHITE [facility] Start: 06-10-2023 End: 06-10-2023 ambulatory Bakari White Other [employer] Other Start: 06-10-2023 Telephone encounter Bakari Wellsjohann markos [facility] Start: 05-29-2023 End: 05-30-2023 Emergency department [facility] Start: 05-29-2023 End: 05-30-2023 Emergency department patient visit TYLER Anand [facility] Start: 05-29-2023 End: 05-29-2023 Emergency department patient [facility] Start: 05-19-2023 End: 05-19-2023 ambulatory Bakari Je Other [employer] Other Start: 05-19-2023 Office outpatient vi sit 25 minutes Bakari Je [facility] Start: 03-16-2023 End: 03-17-2023 [facility]ulatory [facility] Start: 02-24-2023 End: 02-24-2023 ambulatory Bakari Wellsperfecto Other [employer] Other Start: 02-24-2023 Encounter for other preprocedural examination Bakari Je [facility] Start: 02-24-2023 Office outpatient vi sit 25 minutes Bakari Je [facility] Start: 02-18-2023 End: 02-23-2023 ambulatory AJAY Bulmaro GALVAN [facility] Start: 11-24-2022 End: 11-24-2022 ambulatory Bakari Je Other [employer] Other Start: 11-24-2022 Telephone encounter Bakari Wellsjohann markos [facility] Start: 11-21-2022 End: 11-21-2022 ambulatory Bakari Je Other [employer] Other Start: 11-21-2022 Encounter for genera l adult medical examination without abnormal findings Bakari Je [facility] Start: 11-21-2022 Periodic preventive med est patient 40-64yrs Bakari White [facility] Start: 06-12-2022 End: 06-13-2022 ambulatory [facility] Start: 06-12-2022 End: 06-13-2022 Subsequent hospital visit by physician Ajay Galvan MD Work Phone: [facility] Comment on above: S/P TKR (total knee replacement) using cement, left (Primary Dx) Start: 06-09-2022 End: 06-09-2022 ambulatory [facility] Start: 06-09-2022 End: 06-09-2022 Subsequent hospital visit by physician Ajay Galvan MD Work Phone: [facility] Start: 06-04-2022 End: 06-05-2022 ambulatory [facility] Start: 06-04-2022 End: 06-05-2022 Encounter for other preprocedural examination [facility]NA [facility] Start: 06-04-2022 End: 06-04-2022 Subsequent hospital visit by physician Juany Pena PT [facility] Physical Therapy Comment on above: Arrived Start: 05-22-2022 End: 05-22-2022 ambulatory Bakari White Other [employer] Other Start: 05-22-2022 Telephone encounter Bakari Branch i [facility] Start: 05-19-2022 End: 05-19-2022 ambulatory Bakari White Other [employer] Other Start: 05-19-2022 Encounter for other preprocedural examination Bakari White [facility] Start: 05-19-2022 Office outpatient vi sit 25 minutes Bakari Je [facility] Start: 05-12-2022 End: 05-17-2022 ambulatory [facility] E [facility]A [facility] Start: 05-12-2022 End: 05-16-2022 Subsequent hospital visit by physician Ajay Galvan MD Work Phone: [facility] PRE ADMIT Start: 04-11-2022 End: 04-11-2022 ambulatory Bakari White Other [employer] Other Start: 04-11-2022 Telephone encounter Bakari Branch i [facility] Start: 01-30-2022 End: 01-30-2022 ambulatory Bakari White Other [employer] Other Start: 01-30-2022 Telephone encounter Bakari Branch i [facility] Start: 01-29-2022 End: 01-29-2022 Emergency department patient visit DO Bakari White Work Phone: [facility] Start: 01-27-2022 End: 01-27-2022 ambulatory Bakari White Other [employer] Other Start: 01-27-2022 Telephone encounter Bakari Branch i [employer] Start: 01-24-2022 End: 01-24-2022 Patient encounter procedure DO Bakari White Work Phone: [facility] [place] Start: 01-23-2022 End: 01-23-2022 ambulatory Bakari White Other [employer] Other Start: 01-23-2022 Telephone encounter Bakari Branch i [facility] Start: 01-13-2022 End: 01-13-2022 ambulatory Bakari White Other [employer] Other Start: 01-13-2022 Telephone encounter Bakari Branch i [facility] Start: 01-08-2022 End: 01-08-2022 ambulatory Bakari White Other [employer] Other Start: 01-08-2022 Office outpatient vi sit 15 minutes Bakari White [facility] Start: 11-25-2021 End: 11-25-2021 ambulatory Bakari White Other [employer] Other Start: 11-25-2021 Telephone encounter Bakari Branch i [employer] Start: 10-02-2021 End: 10-02-2021 ambulatory Bakari White Other [employer] Other Start: 10-02-2021 Telephone encounter Bakari Branch i [employer] Start: 09-30-2021 End: 09-30-2021 ambulatory Bakari White Other [employer] Other Start: 09-30-2021 Telephone encounter Bakari Branch i [facility] Start: 07-29-2021 End: 07-29-2021 ambulatory Bakari White Other [employer] Other Start: 07-29-2021 Telephone encounter Bakari Branch i [employer] Start: 06-03-2021 End: 06-03-2021 ambulatory Bakari White Other [employer] Other Start: 06-03-2021 Office outpatient vi sit 15 minutes Bakari White [facility] Start: 03-12-2018 End: 03-13-2018 Patient encounter DOCTOR GUZMAN Facility: Start: 02-17-2018 End: 02-18-2018 Patient encounter ALEK MITTAL Facility:[facility] Start: 11-20-2017 End: 11-21-2017 Patient encounter ALEK MITTAL Facility:[facility] Start: 11-19-2017 Encounter for other specified special examinations ALEK MITTAL [facility] Start: 11-19-2017 End: 11-20-2017 Patient encounter MEG HACKETT Facility:[facility] Start: 11-02-2017 End: 11-12-2017 Evaluation and management of inpatient ALEK MITTAL Facility:[facility] Start: 11-02-2017 Encounter for preprocedural cardiovascular examination [facility] Start: 11-02-2017 Encounter for preprocedural laboratory examination [facility] Start: 10-30-2017 End: 11-02-2017 Patient encounter [facility] Facility: Start: 10-28-2017 End: 10-29-2017 Patient encounter [facility] Facility: Start: 10-28-2017 Pre-procedure evalua tion check Bakari White Other [employer] Other Encounter for other specified special examinations ALEK MITTAL [facility] Encounter for preprocedural laboratory examination [facility] Procedures Date Procedure Procedure Detail Performing Clinician [...] nos ABEL BOYER Start: 11-20-2017 REMOVE TISSUE SPARK PLUG TESTER(S) ALEK EBRAHEIM Start: 11-11-2017 DRAINAGE OF RIGHT [...] Treatment [facility] [address] [facility] [address] [place] [address] Louisa Guy, LILLIANA [facility] Start: 06-29-2024 End: 06-29-2024 ambulatory 06/29/2024 1:00 PM EST Evaluation [facility] [address] [facility] [address] [place] [address] Dusty Patterson, PT [address] [facility] [address] [place] [address] Arrived [facility] Comment on above: [...] procedure 03/02/2024 8:40 AM EDT Office Visit [facility]OM[facility] MARTÍNE[facility] [address] [place] [address] Mario Mensah, FLOUR DISTRIBUTOR [address] [place] [address] Arrived [facility] Comment on above: Arrived Start: 06-12-2022 End: 06-12-2022 Admission to same day surgery center 06/12/2022 [place] [address] [place] [id number] KNEE TOTAL ARTHROPLASTY [facility] Comment on above: KNEE TOTAL ARTHROPLA STY Start: 06-12-2022 End: 06-12-2022 Arthrp kne condyle&platu medial&lat compartments KNEE TOTAL ARTHROPLASTY Arthritis of left knee 06/12/2022 10:50 AM [facility] Start: 06-12-2022 Subsequent hospital visit by physician 06/12/2022 Hospital [place]counter [place] [address] [place] [id number] [facility] Start: 06-09-2022 End: 06-09-2022 Admission to same day surgery center 06/09/2022 Surgery IP Unit Ajay Galvan MD [address] [place] [address] KNEE TOTAL ARTHROPLASTY [facility] Comment on above: KNEE TOTAL ARTHROPLA STY Start: 06-09-2022 End: 06-09-2022 Arthrp kne condyle&platu medial&lat compartments KNEE TOTAL ARTHROPLASTY Osteoarthritis of left knee, unspecified osteoarthritis type 06/09/2022 11:00 AM [facility] Start: 06-09-2022 Subsequent hospital visit by physician 06/09/2022 Hospital Encounter IP Unit Ajay Galvan MD [address] [place] [address] [facility] Start: 06-04-2022 End: 06-04-2022 Patient encounter procedure 06/04/2022 Appointment Physical Therapy Juany Pena, PT [facility] Physical Therapy Start: 01-29-2022 CT of abdomen and pelvis without contrast CT abdomen pelvis wo con [facility] Start: 01-29-2022 End: 01-29-2022 Emergency department patient visit Departed Emergency [facility] Start: 12-30-2021 Influenza vaccination Flu vaccine (# 1) [facility] Start: 2011 Shingles vaccine (1 of 2) Shingles vaccine (1 of 2) [facility] Start: 2006 Screening for malign ant neoplasm of colon [facility] [employer] [facility] Start: 2001 Lipid panel Lipids [facility] Start: 01-13-1980 DTaP/Tdap/Td vaccine (1 - Tdap) DTaP/Tdap/Td vaccine (1 - Tdap) [facility] Start: 1979 Hepatitis C screening Hepatitis C sc reen [facility] Start: 01-13-1976 HIV screening HIV screen [facility] Start: 1973 Depression Screen Depression Screen [facility] Start: 1961 COVID-19 Vaccine (#1) COVID-19 Vacci ne (#1) [facility] Oxygen therapy [Mini [facility] Data Set] Initiate Oxygen Therapy Protocol Respiratory Care Routine As Needed until discontinued starting 06/12/2022 [facility] Work Phone: Comment on above: As Needed until disc ontinued starting 06/12/2022 Patient Education Low Back Pain ED Kidney Stone, Adult ED [facility] Work Phone: Patient referral [facility] Work Phone: XR Foot - left GE 3 Views [facility] Immunizations Immunization Date Immunization Notes Care Provider Juan Miguel barkley NEGATED: Highlighted row has not occurred!09-02-2018 influenza, seasonal, injectable Patient Objection Bakari White Other [employer] Other Payers Date Payer Category Payer Self-pay [id number] 2022 [facility] [id number] 2022 Unknown [id number] .[id number] 2013 Unknown [id number] 1961 Unknown [id number] 2.16.840.1.272371.3.579.2 .593 1961 Unknown [id number] 2.16.840.1.412517.3.579.2 .593 1961 Unknown [id number] 2.16.840.1.241984.3.579.2 .593 1961 Unknown [id number] 2.16.840.1.705624.3.579.2 .173 1961 Unknown [id number] 2.16.840.1.099403.3.579.2 .173 1961 Unknown [id number] 2.16.840.1.423457.3.579.2 .173 1961 Unknown [id number] 2.16.840.1.229153.3.579.2 .173 1961 Unknown [id number] 2.16.840.1.483783.3.579.2 .173 1961 Unknown [id number] 2.16.840.1.938868.3.579.2 .173 1961 Unknown [id number] 2.16.840.1.142689.3.579.2 .1286 1961 Unknown [id number] 2.16.840.1.148615.3.579.2 .1286 1961 Unknown [id number] 2.16.840.1.827402.3.579.2 .128 1961 Unknown [id number] 2.16.840.1.628971.3.579.2 .128 1961 Unknown [id number] 2.16.840.1.318298.3.579.2 .1286 1961 Unknown [id number] 2.16.840.1.787052.3.579.2 .1259 1961 Unknown [id number] 2.16.840.1.753987.3.579.2 .1259 1961 Unknown [id number] 2.16.840.1.177403.3.579.2 .1259 1961 Unknown [id number] 2.16.840.1.993809.3.579.2 .1259 1961 Unknown [id number] 2.16.840.1.547205.3.579.2 .196 1961 Unknown [id number] 2.16.840.1.701685.3.579.2 .196 1961 Unknown [id number] 2.16.840.1.208733.3.579.2 .196 1961 Unknown [id number] 2.16.840.1.198502.3.579.2 .196 1959 Unknown [id number] Unknown [id number] 2.16.840.1.905802.3.579.2 .531 Unknown [id number] 2.16.840.1.525830.3.579.2 .531 Unknown [id number] 2.16.840.1.207361.3.579.2 .531 Social History Date Type Detail Facility Tobacco smoking status NHIS Unknown if ever smoked [facility] Start: 1960 Sex Assigned At Male F [facility] Start: 03-02-2024 End: 04-13-2024 Sex Assigned At [facility] [employer] Other Start: 01-29-2022 End: 03-02-2024 Tobacco smoking status NHIS Never smoked tobacco (finding) [facility] Start: 05-12-2022 End: 03-02-2024 Tobacco use and exposure Smokeless tobacco non-user [employer] Phone: Start: 05-12-2022 End: 06-12-2022 Alcohol intake Current drinker of alcohol (finding) [employer] Phone: Start: 05-12-2022 Alcohol Comment rare [employer] Phone: Start: 1960 Sex Assigned At Not on file B ON [employer] Phone: Start: 05-02-2022 End: 06-12-2022 Exposure to SARS-CoV-2 (event) Not sure [employer] Phone: Start: 03-02-2024 End: 04-13-2024 History of Social function [facility] Start: 04-14-2024 End: 07-19-2024 Sex Male (finding) [facility] Medical Equipment Procedure Code Equipment Code Equipment Origin al Text Equipment Identifier Dates Psn Mc Ve Asf L 12mm 8-11 Ef - [id number] Start: 06-12-2022 Goals Date Patient Goal [...] status and offer to schedule more PT. [facility] 07-20-2024 Miscellaneous Notes Formattin g of this [...] I'll call back. documented in this encounter [facility] 07-18-2024 Telephone encounter Note Form atting of this note might be different from the original. Tried to contact but there was no ring-in on phone call; tried 3x's. Off HIPAA, I called and she said she will inform him to call back. [facility] 07-11-2024 Telephone encounter Note Form atting of [...] hear back by 07/14, I'll call back. [facility] 06-29-2024 History of Presen t illness Narrative [...] to be instructed in home exercise program. Residential Goals: To be met in 10 weeks [...] sign below. Date: documented in this encounter [facility] 05-27-2024 Evaluation note Diagnosis Onset Date Resolution BPH (benign prostatic hyperplasia) acute May 27, 024 8:35am Morbid (severe) obesity due to excess calories acute May 27 024 8:35am Influenza A acute July 3:06pm [facility] Work Phone: 1(606) 128-435911-19-2024 Evaluation note* Diagnosis Onset Date Resolution Status Admit Date BPH (benign prostatic hyperplasia) acute April 19, 024 1:49pm Mixed hyperlipidemia acute [facility] 2023 1:49pm Morbid (severe) obesity due to excess calories acute April 1:49pm COTY (obstructive sleep apnea) acute April 19, 2024 1:49pm Other iron deficiency anemias acute April 19, 2024 1:49pm Screening for colon cancer noneactiv e April 19, 2024 1:49pm Encounter for wellness examination noneactive April 19, 024 1:49pm Left foot pain noneactive April 012023 1:49pm [facility] Work Phone: 1(704) 655-406011-19-2024 Evaluation note* Diagnosis Onset Date Resolution Status Admit Date BPH (benign prostatic hyperplasia) acute April 19, 024 1:49pm Mixed hyperlipidemia acute [facility] 2023 1:49pm Morbid (severe) obesity [...] due to excess calories acute May 8:35am [facility] Work Phone: 1(485) 658-494911-13-2024 History of Present illness Narrative* ELIZABETH Reinoso [...] Review Audit Reviewed by Kathy Benedict MA (Field Marketing Specialist) on 04/13/24 at 1233 Medication Order Taking? Sig Documenting Provider Last Dose Status DULoxetine (Cymbalta) [address] capsule [id number] Take 1 capsule (30 mg) by mouth [...] toe bilaterally. Proprioception is absent. Coordination Right: Njudpu-or-bpmt normal. Rapid alternating movement normal.Left: Smqplh-xk-cqgf normal. Rapid alternating movement normal. Gait Unsteady, ambulates with a cane, uses arms to get out of the chair, right foot turned out slightly. Motor Examination RUE Strength deltoid, biceps, triceps, wrist extensors, wrist extensors, wrist flexor, tape keller operator strength 5/5. LUE Strength deltoid, biceps, triceps, wrist extensors, wrist extensors, wrist flexor, tape keller operator strength 5/5. RLE Strength illopsoas, quadriceps, [...] or sooner if needed documented [id number] Evaluation note* Encounter Date Diagnosis Assessment Notes [...] Screening for prostate cancer (ICD-10 - Z12.5) [facility] Other 09-26-2023 Evaluation note* Encounter Date Diagnosis [...] go forward with surgery at this time. [facility] Other 06-23-2023 Evaluation note* Encounter Date Diagnosis [...] on preoperative labs. Will continue to monitor. [facility] Other 01-13-2023 History of Present illness Narrative* Nicky Álvarez RN - 06/13/2022 7:45 PM EST Patient wheelchair out to private vehicle with . Belongings in hands. Discharge paperwork gone over by Laura SILVER * Kathi Jimenez RN - 06/13/2022 6:55 PM EST Sample Tailor faxed discharge information to [facility] @ * Kathi Jimenez RN - 06/13/2022 6:42 PM EST Sample Tailor reviewed discharge instructions with patient. Instructed on [...] 06/13/2022 11:36 AM EST Occupational Therapy Facility/Department: [facility] Occupational Therapy Initial Assessment Name: Júnior Rowland DOB: 1960 Date of Service: 06/13/2022 Discharge Recommendations: Continue to assess pending progress, Home with Home health OT Patient Diagnosis(es): There were no encounter diagnoses. Past Medical History: has no past medical history on file. Past Surgical History: has a past surgical history that includes tumor removal (2015); knee surgery(Right, 2018); [place] tooth extraction; and Tonsillectomy. Treatment Diagnosis: Generalized [...] Ambulation Assistance: Independent Transfer Assistance: Independent Active Watch Parts Grinder: Yes Objective Heart Rate: 71 Heart Rate [...] for LB ADL's, states he has LH therapist phys and sock aid at home from past R knee surgery, pt. yosef valentin with SBA using therapist phys. Educated on use of easy slide/fold techinque [...] Time Individual Concurrent Group Co-treatment Time In 0940 Time Out 1010 Minutes 30 Karmen Rogers OT * Radha Moise Allan, GRADUATE ASSISTANT - 06/13/2022 11:35 AM EST Physical Therapy Facility/Department: [facility] Daily Treatment Note [...] Short Term Goal 2: CGA GAIT FWW. Load Out Supervisor Goals Time Frame for Load Out Supervisor Goals : 4 WEEKS Load Out Supervisor Goal 1: IND GAIT ST CANE. Patient Goals Patient Goals : RETURN HOME WITH ASSIST. Education Patient Education Education Given To: Patient Education Provided: Transfer Training;Home Exercise Program Education Method: Demonstration Barriers to Learning: None Education Outcome: Verbalized understanding;Demonstrated understanding Therapy Time Individual Concurrent Group Co-treatment Time In 1100 Time Out 1132 Minutes 32 Timed Code Treatment Minutes: 32 Minutes Radha Allan, [id number] * Tanesha Fall RN - 06/13/2022 11:23 AM EST Pt walked with therapy and returned to room. He used urinal but therapist emptied it It wasn't very much, I'm sorry I didn't see you were measuring it * Radha Allan PTA - 06/13/2022 8:58 AM EST Physical Therapy Facility/Department: [facility] Daily Treatment Note [...] Short Term Goal 2: CGA GAIT FWW. Residential Goals Time Frame for Residential Goals : 4 WEEKS Residential Goal 1: IND GAIT ST CANE. Patient Goals Patient Goals : RETURN HOME WITH ASSIST. Education Patient Education Education Given To: Patient Education Provided: Transfer Training Education Method: Demonstration Barriers to Learning: None Education Outcome: Verbalized understanding;Demonstrated understanding Therapy Time Individual Concurrent Group Co-treatment Time In 0830 Time Out 0858 Minutes 28 Timed Code Treatment Minutes: 28 Minutes Radha Allan, [id number] * Tanesha Fall RN - 06/13/2022 7:15 [...] PM EST Scheduled tylenol given. Patient stated Felda PO did help with pain. Hemavac emptied, [...] got drainage right away. Emptied right before insurance underwriter sales left room, 110 bloody drainage. Patient expressed wanting to get into bed. Patient stood and ambulated a few feet to bed. Patient tolerated well and did so with walker and contact guard. Ancef antibiotic hung. Patient rating pain 6/10, Felda PO given for pain. Water pitcher refilled. Patient got comfortable in bed. Patient deniesany other needs at this time. Call light, bedside table and personal belongings within reach. * Ivania Singh, PT - 06/12/2022 5:10 PM EST Physical Therapy Facility/Department: [facility] Physical Therapy Initial [...] includes tumor removal (2015); knee surgery(Right, 2018); [place] tooth extraction; and Tonsillectomy. Assessment Body Structures, [...] Short Term Goal 2: CGA GAIT FWW. Load Out Supervisor Goals Time Frame for Load Out Supervisor Goals : 4 WEEKS Load Out Supervisor Goal 1: IND GAIT ST CANE. Patient [...] or converted to UFH per the approved [facility] protocol and table as identified below. [...] responsible adult. N/A [facility] [employer] Phone: [phone]) 107-248401-13-2023 Hospital Discharge instructions* Discharge Instructions* Kathi Jimenez [...] at most local grocery stores, pharmacies, and [employer]-stores. If you have any questions about your diet or nutrition, call the hospital and ask for the dietitian. Regular diet documented in this encounterB[facility] Phone: 1(593) 493-914701-13-2023 Hospital course Narrative* Ajay Galvan MD - 06/13/2022 5:37 PM EST Physician Discharge Summary Patient ID: Júnior Rowland [id number] Admit date: 06/12/2022 Discharge date and [...] 5-325 MG per tablet Commonly known as: Felda Take 1-2 tablets by mouth every 4 hours as needed for Pain for up to 7 days. Max Daily Amount: 12 tablets Xarelto 10 MG Tabs tablet Generic drug: rivaroxaban Take 1 tablet by mouth daily (with breakfast) CONTINUE taking these medications celecoxib 200 MG capsule Commonly known as: CELEBREX Where to Get Your Medications These medications were sent to [id number] - [place], [place] - [address] - P [phone] - F [phone] [place] [address] HYDROcodone-acetaminophen 5-325 MG per tablet Xarelto 10 MG Tabs tablet Activity: Physical Therapy Wound Care: keep wound clean and dry, shower after 4 days if no drainage Other: Follow-up with AJAY GALVAN MD in 2 weeks. Signed: AJAY GALVAN MD, M.D. 06/13/2022 5:37 PM documented in this encounterBON [employer] Phone: [phone]) [phone] History of Present illness Narrative* JOEY Durham [...] case. Implies understanding. documented in this encounterB[facility] Phone: [phone]) 813-685912-19-2022 Evaluation note* Encounter Date Diagnosis Assessment Notes [...] go forward with surgery at this time. [facility] Other 12-12-2022 History of Present illness Narrative* Lola Moseley RN - 05/12/2022 2:00 PM EST Patient instructed on the pre-operative, intra-operative, and post-operative process. Patient instructed on NPO status. Medication instructions and pre operative instruction sheet reviewed with the patient. CHG skin prep instructions reviewed with patient. * Lola Moseley RN - 05/12/2022 2:00 PM EST [facility] Preadmission Testing Name: Júnior Rowland : [...] and medical clearance. documented in [facility] [employer] Work Phone: 1(105) 133-463808-25-2022 Evaluation note* Encounter Date Diagnosis Assessment Notes Treatment Notes Treatment Clinical Notes Dec, Low back pain, unspecified (ICD-10 - M54.50) [facility] Other 08-15-2022 Evaluation note* Encounter Date Diagnosis Assessment Notes Treatment Notes Treatment Clinical Notes Dec, Low back pain, unspecified (ICD-10 - M54.50) [facility] Other 08-10-2022 Evaluation note* Encounter Date Diagnosis [...] and operating heavy machinery while using it. [facility] Other Evaluation noteNortFriendFinder Networks Other Evaluation noteNo InformationNort [facility] Other Evaluation noteNo assessment information available [facility] Work Phone: Evaluation note* Diagnosis S/P TKR (total knee replacement) using cement, left- Primary S/P TKR (total knee replacement) using cement, left documented in this encounter [facility] Work Phone: evaluation note* Diagnosis Polyneuropathy- Primary Unspecified hereditary and idiopathic peripheral neuropathy documented in this encounter [facility]* Diagnosis Onset Date Resolution Status Admit Date BPH (benign prostatic hyperplasia) acute April 19 024 1:49pm Mixed hyperlipidemia acute mb 2023 1:49pm Morbid (severe) obesity due to excess calories acute April 1:49pm COTY (obstructive sleep apnea) acute April 19, 2024 1:49pm Other iron deficiency anemias acute April 19, 2024 1:49pm Screening for colon cancer noneactiv e April 19, 2024 1:49pm Encounter for wellness examination noneactive April 19 1:49pm Left foot pain noneactive April 012023 1:49pm [facility] Work Phone: Evaluation note* Diagnosis Polyneuropathy- Primary Unspecified hereditary and idiopathic peripheral neuropathy Painful legs and moving toes of left foot Other specified peripheral vascular diseases (CMS/HCC) documented in this encounter [facility] HealthcareEvaluation note* Diagnosis Radiculopathy, lumbar region- Primary Thoracic or lumbosacral neuritis or radiculitis, unspecified Difficulty walking Difficulty in walking Weakness of both lower extremities documented in this encounter [facility]* Diagnosis Radiculopathy, lumbar region- Primary Thoracic or lumbosacral neuritis or radiculitis, unspecified Difficulty walking Difficulty in walking Weakness of both lower extremities documented in this encounter [facility] HealthcareHistory general Narrative - ReportedNomissouri southern healthcare [facility] Other History general Narrative - Reported* Type [...] 2018 Hospitalization History see above Hospitalization History [facility] for wound care 10/31 018 [facility] Other history general Narrative - Reported* Type [...] 2018 Hospitalization History see above Hospitalization History [facility] for wound care 10/31 018 [facility] Other history general Narrative - Reported* Type [...] Hospitalization History see above Hospitalization History [facility] for wound care 10/31 018 [facility] Other history general Narrative - Reported* Type [...] 23 Hospitalization History see above Hospitalization History [facility] for wound care 10/31 018 [facility] Other Reason for referral (narrative)No reason for referral information availableC[facility] Work Phone: Reason for visit Narrative* Rehabilitation - Outpatient (Routine) - Authorized Specialty Diagnoses / Procedures Referred By Contac t Referred To Contact Physical Therapy Diagnoses Radiculopathy, lumbar region Pain in left foot Procedures DE PHYSICAL THERAPY EVALUATION LOW COMPLEX 20 MINS DE OFFICE/OUTPATIENT [facility] MDM 60 MINUTES Alessandra Murillo MD [address] [place] [address] [place] [address] Phone: tel: fax: [facility] [address] [facility] [place] [address] Phone: tel: fax: Referral ID Status Reason Start Date Expiration Date V isits Requested Visits Authorized [id number] Authorized 06/29/2024 08/27/2024 6 6 [facility] [...] April 1:49pm Encounter for wellness examination [facility] 2023 1:49pm Left foot pain April 19, 2024 1:49pm BPH (benign prostatic hyperplasia) Decem 2023 8:35am Morbid (severe) obesity due to excess ca lories May 27, 2024 8:35am Chief Complaint Admit Date Continuing prostate issues May 8:35am Cough, congestion, wheezing, shortness o f breath July 11, 2024 3:06pm [facility] uc f/u flu a, still has cough Febru jerry 2024 2:44pm Reason for Visit Admit Date BPH (benign prostatic hyperplasia) Decem 2023 8:35am Morbid (severe) obesity due to excess ca lories May 27, 2024 8:35am Influenza A July 11, 2024 3:06pm Chief Complaint Admit Date sinus pressure, congestion January 10, 2025 2:58pm Additional Source Comments (unrecognized sect ion and content) No Status Records FoundNo Status Records FoundNo Status Records FoundNo Status Records FoundNo Status Records FoundNo Status Records FoundNo Status Records Found INFORMATION SOURCE (unrecogn ized section and content) DATE CREATED AUTHOR 03/20/2018 [facility] DATE CREATED AUTHOR AUTHOR'S ORGANIZ ATION 04/15/2018 [facility] DATE CREATED AUTHOR AUTHOR'S ORGANIZ ATION 03/25/2023 [facility] DATE CREATED AUTHOR AUTHOR'S ORGANIZ ATION 02/26/2024 [facility] DATE CREATED AUTHOR AUTHOR'S ORGANIZ ATION 07/08/2024 [facility] DATE CREATED AUTHOR AUTHOR'S ORGANIZ ATION 10/26/2024 [facility] DATE CREATED AUTHOR AUTHOR'S ORGANIZ ATION 12/01/2024 [facility] REASON FOR VISIT (unrecogniz ed section and content) Reason Onset Date Comments re: PT status and auth given 07/11/2024 FU 07/18/2024 Final 07/20/2024 Reason Comments Numbness 6 month Follow upPre-surgical exam- right knee replacement scheduled for 03/16/[address] Galvanscriptannual/possible circulation issue, cold foot, lower extremity pain and rednessupdatePre-surgical Exam Left total knee replacement scheduled 06/09/[address] Galvan at [facility] Specialty Diagnoses / Procedures Referred By Taty chakraborty Referred To Contact Diagnoses Arthritis of left knee LEFT KNEE ARTHRITIS Procedures DE ARTHRP KNE CONDYLE&PLATU MEDIAL&LAT COMPARTMENTS KNEE TOTAL ARTHROPLASTY Ajay Galvan MD [address] [place] [phone] [facility] [address] [place] [address] Referral ID Status Reason Start Date Expiration Date Visits Re quested Visits Authorized [id number] 1 1 Specialty Diagnoses / Procedures Referred By Taty chakraborty Referred To Contact Diagnoses Osteoarthritis of left knee, unspecified osteoarthritis type LEFT KNEE PRIMARY OSTEOARTHRITIS Procedures DE TOTAL KNEE ARTHROPLASTY KNEE TOTAL ARTHROPLASTY Ajay Galvan MD [address] [place] [phone] [facility] [address] [place] [address] Referral ID Status Reason Start Date Expiration Date Visits Re quested Visits Authorized [id number] 1 1 ER Follow upClinical Acute IllnessClinical [...] Primary Care Provider, Attendin g Provider Active Rotary Drier Relationship Specialty Start Date End Date Fatou Ridley MD [address], [place] [id number] PCP - General 06/13/22 Rotary Drier Relationship Specialty Start Date End Date Bakari White MD NPI: PCP - General Family Medicine 04/07/23 Rotary Drier Relationship Specialty Start Date End Date Bakari White MD NPI: PCP - General Family Medicine 04/07/23 Team Status: Inactive Member Role Status Dates Bakari White DO Primary Care Prov ider, Attending Provider Active Start: April 19, 2024 End: April 19, 2024 Rotary Drier Relationship Specialty Start Date End Date Bakari White MD NPI: [id number] [place] [phone] PCP - General Family Medicine 04/11/24 Elda Bryant MD [address] [place] [address] Referring Physician Neurology 04/11/24 Darlene Brito PA [address] [place] [address] Physician Machine Edge Bander Neurology 04/11/24 Eugenia Davis PA [address] [place] [address] Physician [employer] [facility] Neurology 04/11/24 Rotary Drier Relationship Specialty Start Date End Date Bakari White MD [address] [place] [phone] PCP - General Family Medicine 04/11/24 Elda Bryant MD [address] [place] [address] Referring Physician Neurology 04/11/24 Darlene Brito PA [address] [place] [address] Physician Machine [employer] [facility]ander Neurology 04/11/24 Eugenia Davis PA [address] [place] [address] Physician Machine [employer] [facility] Neurology 04/11/24 Rotary Drier Relationship Specialty Start Date End Date Bakari White MD [address] [place] [phone] PCP - General Family Medicine 04/11/24 Elda Bryant MD [address] [place] [address] Referring Physician Neurology 04/11/24 Darlene Brito PA [address] [place] [address] Physician Machine [employer] [facility]ander Neurology 04/11/24 Eugenia Davis PA [address] [place] [address] Physician Machine [employer] [facility]ander Neurology 04/11/24 Rotary Drier Relationship Specialty Start Date End Date Bakari White MD NPI: [id number] [place] [phone] PCP - General Family Medicine 04/11/24 Elda Bryant MD [address] [place] [address] Referring Physician Neurology 04/11/24 Darlene Brito PA [address] [place] [address] Physician Machine [employer] [facility]ander Neurology 04/11/24 Eugenia Davis PA [address] [place] [address] Physician Machine [employer] [facility]ander Neurology 04/11/24 Rotary Drier Relationship Specialty Start Date End Date Bakari White MD NPI: [id number] [place] [address] PCP - General Family Medicine 04/11/24 Elda Bryant MD [address] [place] [address] Referring Physician Neurology 04/11/24 Darlene Brito PA [address] [place] [address] Physician Machine [employer] [facility]ander Neurology 04/11/24 Eugenia Davis PA [address] [place] [address] Physician Machine [employer] [facility]ander Neurology 04/11/24 Rotary 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 Relationship Specialty Start Date End Date Bakari White MD [address] [place] [phone] PCP - General Family Medicine 04/11/24 Elda Bryant MD [address] [place] [address] Referring Physician Neurology 04/11/24 Darlene Brito PA [address] [place] [address] Physician Machine [employer] [facility]ander Neurology 04/11/24 Eugenia Davis PA [address] [facility] [address] [place] [address] Physician Machine [employer] [facility]ander Neurology 04/11/24 Team Status: Inactive Member Role [...] July 19, 2024 End: July 19, 2024 Rotary Drier Relationship Specialty Start Date End Date Bakari White MD [address] [place] [phone] PCP - General Family Medicine 04/11/24 Elda Bryant MD [address] [place] [address] Referring Physician Neurology 04/11/24 Darlene Brito PA [address] [place] [address] Physician [employer] [facility] Neurology 04/11/24 Eugenia Davis PA [address] [place] [address] Physician [employer] [facility] Neurology 04/11/24 Team Status: Inactive Member Role Status Dates Bakari White DO Primary Care Provider Active Start: January 10, 2025 End: January 10, 2025 Reyna Do APRN Attending Provider Active Start: January 10, 2025 End: January 10, 2025 Goals (unrecognized section and content) Goals may [...] Tanesha Fall, ADRIANNE)1641 (Given - Provider: Tanesha Fall, ADRIANNE)2200 (Due) ceFAZolin (ANCEF) 3000 mg in dextrose [...] Ernst RN)1023 (NoRateChange - Provider: JOEY Durham WOOD MECHANIST)1254 (Paused - Provider: JOEY Bernal CRNA - Comment: Switch to gravity)1255 (New Bag - Provider: JOEY Bernal WOOD MECHANIST)1412 (Anesthesia Volume Adjustment - Provider: JOEY Bernal [...] RN) 09 (Given - Provider: Tanesha Fall, RN)175 (Given - Provider: Tanesha Fall RN) zazgarxac-hpyjgofldcj-fslqr ine 60-150-60 MG/50ML injection (CANCELED) PRN, Starting [...] vancomycin (VANCOCIN) injection (CANCELED) PRN, Starting on Thu06/12/22 at 1259, Until Whit 06/12/22 at 1411, Intra-op 1259 (Given - Provider: Ajay Glavan MD) No Frequency Medication Order 06/11/2022 06/12/2022 06/13/2022 ceFAZolin (ANCEF) 1 g injection (COMPLETED) 1 dose, Starting on Thu06/12/22 at 1858, Until Whit 06/12/22 at 1915, Nicky Álvarez: cabinet override, Nicky Álvarez: cabinet override 1915 (Given - Provider: Nicky Álvarez RN - [...] at 1857, For 1 dose, Nicky Álvarez: beatrisinemylene override 1915 (New Bag - Provider: Nicky Álvarez RN - Comment: mixed medication for ancef)1950 (Stopped - Provider: Nicky Álvarez RN) dextrose 5 % solution (COMPLETED) Starting on Thu06/13/22 at 0115, For 1 dose, Nicky Álvarez: cabinet override 0124 (New Bag - Provider: Nicky [...] BE BASED ON THE PRIMARY CLINICAL RECORDS. [employer] provides no warranty or guarantee of the accuracy or completeness of information in this document.
--- OUTSIDE RECORDS SUMMARY | 2025-01-28 16:42 | XMS_ITS | Patient Health Record ---
Author Organization [facility] Address [address] [place] [address] Care Team Providers Care Folder Stitcher Operator Name Role Phone Ajay Galvan Unavailable [phone] Reason For Referral No Information Social History Tobacco Use: Social History Observation Description Date Details (start date - stop date) Never Smoker NA - NA Smoking History Question Answer Notes Smoking Status NonSmoker Problems Problem Type SNOMED Code ICD Code Onset Dates Problem Status W/U Status Risk Notes Problem 010592872 Aftercare following joint replacement surgery (Z47.1) Active confirmed Problem 7954109844 Pain in right knee (M25.561) Active confirmed Problem 314095208 Bilateral primar y osteoarthritis of knee (M17.0) Active confirmed Problem 782755093117 Presence of righ t artificial knee joint (Z96.651) Active confirmed Problem 051258655310 Presence of left artificial knee joint (Z96.652) Active confirmed Problem 962777315766983 Primary osteoarthritis of right knee (M17.11) Active confirmed Problem 4480742586 Acute pain of left knee (M25.562) Active confirmed Problem Information temporarily unavailable Osteoarthritis of left knee (M17.12) Active confirmed Problem 2241905718492051 Arthritis of knee, left (M17.12) Active confirmed Problem 106619133 Preoperative testing (Z01.818) Active confirmed Plan Of Treatment Pending Test Test Name Order Date [facility] Knee right [id number] 03/31/2023 [facility] TOTAL - PREOP- CBC WITH DIFF, BMP, TYPE AND SCREEN, MRSA BY PCR BILATERAL NARES, EKG, [facility], PT / OT EVALUATION , 02/06/2023 [facility] - POST OP PT/OT - 12 VISITS 03/31/20 23 Insurance Providers Payer Name Payer Address Payer Phone Subscriber Number Group Number Insured Name Patient Relationship to Insured Coverage Start Date Coverage End Date [employer] [address] [place] [address] [id number] JULISSA MAGAÑA Self - patient is the insured Medical (General) History Medical History History ICD Code Medication List 1: Celebrex Do you have a CPAP machine?: No Do you use the CPAP machine?: No Do you have any dental probl ems i.e. 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
--- OUTSIDE RECORDS SUMMARY | 2025-01-28 16:42 | XMS_ITS | Clinical Summary ---
Author Organization [facility] Address [address], [address] [place] [address] Care Team Providers Care Core Blower Operator Name Role Phone Gaurav Wooten DO Primary Care Provider [phone] Allergies Active Allergy Reactions Criticality Noted Date Comments Cephalexin Other (See Comments) Low 03/16/2023 Vancomycin Other (See Comments) Low 03/16/2023 Medications celecoxib (CELEBREX) 200 MG capsule Take 1 capsule by mouth 2 times daily Active rivaroxaban (XARELTO) 10 MG TABS tablet Take 1 tablet by mouth daily (with breakfast) 12 tablet 03/17/2023 Active Active Problems Problem Noted Date Diagnosed Date Status post total right knee replacement using c ement 03/16/2023 S/P TKR (total knee replacement) using cement, l eft 06/12/2022 Social History Tobacco Use Types Packs/Day Years Used Date Smoking Tobacco: Never Smokeless Tobacco: Never Tobacco Cessation:Counseling Given: Not Answered Alcohol Use Standard Drinks/Week Comments Yes 0 (1 standard drink = 0.6 oz pur e alcohol) rare Interpersonal Safety Domain Source: IP Abuse Scr eening Answer Date Recorded Read-Only, Retired: Physical Abuse Denies 03/16/2023 Read-Only, Retired: Verbal Abuse Denies 03/16/2023 Read-Only, Retired: Emotional abuse Denies 03/16/2023 Read-Only, Retired: Financial Abuse Denies 03/16/2023 Read-Only, Retired: Sexual abuse Denies 03/16/2023 Sex and Gender Information Value Date Recorded Sex Assigned at Not on file Legal Sex Male 2:16 PM EDT Gender Identity Not on file Sexual Orientation Not on file Last Filed Vital Signs Vital Sign Reading Time Taken Comments Blood Pressure 122/65 03/17/2023 7:15 AM EDT Pulse 74 03/17/2023 7:15 AM EDT Temperature 36.7 C (98 F) 03/17/2023 7:15 AM EDT Respiratory Rate 18 03/17/2023 12:3 8 PM EDT Oxygen Saturation 94% 03/17/2023 7:15 AM EDT Inhaled Oxygen Concentration - - Weight 168.6 kg (371 lb 12.8 oz) 03/16/2023 3:30 PM EDT Height 182.9 cm (6') 03/16/2023 3:30 PM EDT Body Mass Index 50.43 03/16/2023 3:30 PM EDT Plan of Treatment Health Maintenance Due Date Last Done Comments Depression Screen 1973 HIV screen 01/13/1976 Hepatitis C screen 1979 DTaP/Tdap/Td vaccine (1 - Tdap) 01/13/1980 Lipids 2001 Colonoscopy 2006 Colorectal Cancer Screen 2006 FIT/FOBT: Average risk 2006 Fecal-DNA (Cologuard): Average risk 2006 Sigmoidoscopy/CT colonography 2006 Pneumococcal 50+ years Vacci ne (1 of 1 - PCV) 2011 Shingles vaccine (1 of 2) 2011 Respiratory Syncytial Virus (RSV) or age 60 yrs+ (1 - Risk 60-74 years 1-dose series) 2021 COVID-19 Vaccine ( - 2023-2 5 season) 2024 Flu vaccine (#1) 12/30/2024 Hepatitis A vaccine Aged Out No longe r eligible based on patient's age to complete this topic Hepatitis B vaccine Aged Out No longe r eligible based on patient's age to complete this topic Hib vaccine Aged Out No longer eligi ble based on patient's age to complete this topic Meningococcal (ACWY) vaccine Aged Out No longer eligible based on patient's age to complete this topic Meningococcal B vaccine Aged Out No l onger eligible based on patient's age to complete this topic Polio vaccine Aged Out No longer elig ible based on patient's age to complete this topic Medical Devices Implanted Type Area Mobile Marketing Manager Device Identifier Shelf Expiration Date Model / Serial / Lot Impl Knee Psn Fem Cr Cmt Ccr Std Sz10 R - [id number] Implanted:Qty : 1 on 03/16/2023 by Ajay Galvan MD at [facility] Knee Right: Knee [employer]PMM 04/12/2032 [id number] / / [id number] Psn Mc Ve Asf L 12mm 8-11 Ef - [id number] Implanted:Qty : 1 on 06/12/2022 by Ajay Galvan MD at [facility] Left: Knee [employer]- 07/27/2025 [id number] / / [id number] Cement Bne 40gm Hi Visc Radpq For Rev Surg - [id number] Implanted:Qty : 1 on 06/12/2022 by Ajay Galvan MD at [facility] Left: Knee [employer]- 04/30/2024 [id number] / / [id number] Cement Bne 40gm Hi Visc Radpq For Rev Surg - [id number] Implanted:Qty : 1 on 06/12/2022 by Ajay Galvan MD at [facility] Left: Knee [employer]- 04/30/2024 [id number] / / [id number] Cement Bne 40gm Hi Visc Radpq For Rev Surg - [id number] Implanted:Qty : 1 on 06/12/2022 by Ajay Galvan MD at [facility] Left: Knee [employer]- 08/29/2024 [id number] / / [id number] Psn Tib Stm 5 Deg Sz F L - [id number] Implanted:Qty : 1 on 06/12/2022 by Ajay Galvan MD at [facility] Left: Knee [employer]- 01/07/2032 [id number] / / [id number] Psn Fem Cr Cmt Ccr Std Sz10 L - [id number] Implanted:Qty : 1 on 06/12/2022 by Ajay Galvan MD at [facility] Left: Knee [employer]- 03/09/2032 [id number] / / [id number] Component Pat Vit48wx Thk9mm Std Knee Vivacit-E Vadim Persona - [id number] Implanted:Qty : 1 on 06/12/2022 by Ajay Galvan MD at [facility] Left: Knee [employer]- 02/27/2027 [id number] / / [id number] Extension Stem L30mm Kia61my Knee Tapr Vad[employer] - [id number] Implanted:Qty : 1 on 06/12/2022 by Ajay Galvan MD at [facility] Left: Knee [employer]- 04/15/2032 [id number] / / [id number] Psn Tib Stm 5 Deg Sz F R - [id number] Implanted:Qty : 1 on 03/16/2023 by Ajay Galvan MD at [facility] Right: Knee [employer]- 10/27/2032 [id number] / / [id number] Extension Stem L30mm [id number] Knee Tapr Vadim Persona - [id number] Implanted:Qty : 1 on 03/16/2023 by Ajay Galvan MD at [facility] Right: Knee [employer]- 01/16/2033 [id number] / / [id number] Component Pat Onb05vt Thk8.5mm Std Knee Vivacit-E Avdim - [id number] Implanted:Qty : 1 on 03/16/2023 by Ajay Galvan MD at [facility] Right: Knee [employer]- 09/22/2027 [id number] / / [id number] Psn Mc Ve Asf R 12mm 8-11 Ef - [id number] Implanted:Qty : 1 on 03/16/2023 by Ajay Galvan MD at [facility] Right: Knee [employer]- 08/05/2027 [id number] / / [id number] Cement Bne 40gm W/ Gent Hi Visc Radpq For Rev Surg - [id number] Implanted:Qty : 2 on 03/16/2023 by Ajay Galvan MD at [facility] Right: Knee [employer]- 03/31/2025 [id number] / / [id number] Cement Bne 40gm W/ Gent Hi Visc Radpq For Rev Surg - [id number] Implanted:Qty : 1 on 03/16/2023 by Ajay Galvan MD at [facility] Right: Knee [employer]- 08/30/2023 [id number] / / [id number] Explanted Type Area Mobile Marketing Manager Device Identifier Shelf Expiration Date Model / Serial / Lot Screw Bne L48mm Constrn Cndyl Knee Hex Hd Stem For Leg Nxgn - [id number] Explanted:Qty : 1 on 06/12/2022 by Ajay Galvan MD at [facility] Left: Knee [employer]- 03/28/2032 [id number] / / [id number] Screw Bne L48mm Constrn Cndyl Knee Hex Hd Stem For Leg Nxgn - [id number] Explanted:Qty : 1 on 06/12/2022 by Ajay Galvan MD at [facility] Left: Knee [employer]- 04/01/2032 [id number] / / [id number] Screw Bne L48mm Constrn Cndyl Knee Hex Hd Stem For Leg Nxgn - [id number] Explanted:Qty : 1 on 03/16/2023 by Ajay Galvan MD at [facility] [employer]- 12/06/2032 [id number] / / [id number] Screw Bne L48mm Constrn Cndyl Knee Hex Hd Stem For Leg Nxgn - [id number] Explanted:Qty : 1 on 03/16/2023 at [facility] [employer]- 11/02/2032 [id number] / / [id number] Insurance [facility] OUT OF STATE Member Subscriber Plan / Payer (Ef fective 2020-Present) Name:Júnior Chu Relation to Subscriber:Self Name:Júnior Chu Payer ID:Not on file Type:Not on file Address: [address] Advance Directives * Full Code (Latest Code Status on File) Date Activated Date Inactivated Comments 03/16/2023 3:49 PM 03/17/2023 6:09 PM * Full Code Date Activated Date Inactivated Comments 06/12/2022 3:36 PM 06/13/2022 10:20 PM Healthcare Agents on File Name Relationship Healthcare Agent Relationship Communication Britni Chu Spouse Primary Decision Maker Care Teams Core Blower Operator Relationship Specialty Start Date End Date Gaurav Wooten DO [address] [place] [address];[address] [place] [address] PCP - General Family Medicine 02/18/23
--- OUTSIDE RECORDS SUMMARY | 2025-01-28 16:42 | XMS_ITS | Patient Health Record ---
Author Organization [facility] [place] Address [address] [place] [address] Care Team Providers Care Journeyman Pipe Welder Name Role Phone None, Unknown or Primary Care Provider Unavailab Alessandra Lugo Unavailable [phone] Allergies Allergen (clinical drug ingredient) Drug/Non Drug Allergy documented on EMR Reaction Allergy Type Onset Date Status Information temporarily unavailable Cephalexin rash Drug Allergy Active Results Component Value Reference Range Notes XR foot LT min 3V (Not yet r eviewed by provider) Interpretation: Performing Lab: Notes/Report: Source Facility: [place] [address] XRay Report Signed Patient: JÚNIOR CHU MR#: [id number] : 1960 Acct:[id number] Age/Sex: 64 / M ADM Date: 05/04/24 Loc: RAD Attending Dr: Alessandra Anderson D.P.M. Ordering Physician: Alessandra Anderson D.P.M. Date of Service: 05/04/24 Procedure(s): XR foot LT min 3V Accession Number(s): [id number] cc: Alessandra Anderson D.P.M.; Physician,Non-Staff [place] [address] Patient Name: JÚNIOR CHU MRN: [id number] date: 1960 Sex: M Assigned Patient Location: RAD Current Patient Location: Accession/Order Number: [id number] Exam Date: 05/04/2024 14:30 Report Date: 05/05/2024 07:23 At the request of: ALESSANDRA ANDERSON Procedure: XR foot LT min 3V PROCEDURE: XR foot LT min 3V COMPARISON: 04/19/2024 HISTORY: Left Foot Pain FINDINGS: BONES:No acute fracture or dislocation. Moderate degenerative changes with marginal osteophyte formation most significant in the midfoot. Moderate enthesopathic spurring of the calcaneus SOFT TISSUES:Moderate dorsal forefoot soft tissue swelling EFFUSION:None visible. OTHER: Negative. XR/XR foot LT min 3V IMPRESSION: Soft tissue swelling, no acute fracture Electronically authenticated by: ELIZABETH PERSAUD Date: 05/05/2024 07:23 Dictated By: Elizabeth Persaud M.D. Signed By: 05/05/24725 DD/ 2 TD/TT: Ob/Gyn Doctor: [place] [address] XRay Report Signed Patient: JÚNIOR CHU MR#: [id number] : 1960 Acct:[id number] Age/Sex: 64 / M ADM Date: 05/04/24 Loc: RAD Attending Dr: Alessandra Anderson D.P.M. Ordering Physician: Alessandra Anderson D.P.M. Date of Service: 05/04/24 Procedure(s): XR foot LT min 3V Accession Number(s): [id number] cc: Alessandra Anderson D.P.M.; Physician,Non-Staff [place] [id number] Patient Name: JÚNIOR CHU MRN: [id number] date: 1960 Sex: M Assigned Patient Location: RAD Current Patient Location: Accession/Order Numb er: [id number] Exam Date: 14:30 Report Date: 05/05/2024 07:23 At the request of: ALESSANDRA ANDERSON Procedure: XR foot LT min 3V PROCEDURE: XR foot LT min 3V COMPARISON: 04/19/2024 HISTORY: Left Foot Pain FINDINGS: BONES:No acute fract ure or dislocation. Moderate degenerative changes with marginal osteophyte formation most significant in the midfoot. Moderate enthesopathic spurri ng of the calcaneus SOFT TISSUES:Moderat e dorsal forefoot soft tissue swelling EFFUSION:None visible. OTHER: Negative. X R/XR foot LT min 3V IMPRESSION: Soft tissue swelling , no acute fracture Electronically authe nticated by: ELIZABETH PERSAUD Date: 05/05/2024 07:23 Dictated By: Elizabeth Persaud M.D. Signed By: 05/05/24725 DD/ 2 TD/TT: Ob/Gyn Doctor: Reason For Referral Reason evaluation and treat ment -- see attached order Diagnosis 1 Left foot pain (M79. 672) Referral Organization [facility] ([facility]) Referring Provider First Name Alessandra Referring Provider Last Name Monica Referring Provider Speciality Podiatry Referred Provider [facility], Physical Therap y Referred Provider Specialty Physical Med icine and Rehabilitation Referral Priority Routine Reason lumbar radiculopathy Diagnosis 1 Left foot pain (M79. 672) Referral Organization [facility] (PODIAT[facility]) Referring Provider First Name Alessandra Referring Provider Last Name Monica Referring Provider Speciality Podiatry Referred Provider Pain Management, [facility] Referred Provider Specialty Pain Medicin e Referral Priority Routine Reason see attached order Diagnosis 1 Left foot pain (M79. 672) Referral Organization [facility] (POD[facility]) Referring Provider First Name Alessandra Referring Provider Last Name Monica Referring Provider Speciality Podiatry Referred Provider Specialty Pharmacist Referral Priority Routine Social History Tobacco Use: Social History Observation Description Date Details (start date - stop date) Never Smoker NA - NA Tobacco Control (Standard) Question Answer Notes Tobacco use: Nonsmoker Problems Problem Type SNOMED Code ICD Code Onset Dates Problem Status W/U Status Risk Notes Problem Information temporarily unavailable Left foot pain (M79.672) Active confirmed Vital Signs Heart Rate 79 /min 05/04/2024 Temperature 97.5 degrees Fahrenheit 05/04/2024 Oximetry 98 % 05/04/2024 Height 72 in 05/04/2024 Weight 390 lbs 05/04/2024 BMI 52.89 kg/m2 05/04/2024 Encounters Encounter Location Date Provider Diagnosis [facility] [address] [place] [address] [place] [address] 05/04/2024 Alessandra Anderson Left foot pain M79.672 and Neuralgia and [...] unspecified (ICD-10 - M79.2) Plan Of Treatment Pending Test Test Name Order Date XR Foot LT (3 views) * 05/04/2024 XR foot LT min 3V 05/05/2024 Insurance Providers Payer Name Payer Address Payer Phone Subscriber Number Group Number Insured Name Patient Relationship to Insured Coverage Start Date Coverage End Date [employer] OUT OF STATE [address] [place] [phone] [id number] Júnior Frazier Self - patient is the insured Medical (General) History Medical History History ICD Code hx of joint replacement bilateral knee obesity sleep apnea seasonal allergies depression hyperlipidemia BPH osteoarthritis restless leg syndrome Surgical History Surgery Date(Month/Year) bilateral knee replacement tonsilectomy spinal surgery removal of benign tumor from neck wisdom teeth extraction
--- OUTSIDE RECORDS SUMMARY | 2025-01-28 16:42 | XMS_ITS | Clinical Summary ---
Author Organization [facility] Address [id number] [address] [place] [address] Care Team Providers Care Carrier Associate Name Role Phone Gaurav Wooten DO Primary Care Provider [phone] Allergies No known active allergies Medications celecoxib (CeleBREX) 400 MG capsule Take 1 capsule (400 mg total) by mouth in the morning and 1 capsule (400 mg total) before bedtime. Active furosemide (LASIX) 20 mg tablet Take 1 tablet (20 mg total) by mouth daily. Active Active Problems Problem Noted Date Diagnosed Date Primary osteoarthritis of both knees 10/02/2017 Chronic pain of both knees 10/02/2017 Social History Tobacco Use Types Packs/Day Years Used Date Smoking Tobacco: Never Smokeless Tobacco: Never Childcare Answer Date Recorded Childcare Unknown 11/10/2018 Employment Answer Date Recorded Employment Unknown 11/10/2018 Hunger Screening Answer Date Recorded Within the past 12 months we worried whether our food would run out before we got money to buy more. Never True 02/24/2024 Within the past 12 months th e food we bought just didn't last and we didn't have money to get more. Never True 02/24/2024 Purpose - Life Answer Date Recorded Purpose and direction in life Unknown Sex and Gender Information Value Date Recorded Sex Assigned at Not on file Legal Sex Male 11:55 AM EDT Gender Identity Not on file Sexual Orientation Not on file Last Filed Vital Signs Vital Sign Reading Time Taken Comments Blood Pressure 152/109 02/24/2024 10:18 AM EDT Pulse 81 05/29/2023 2:14 PM EST Temperature 36.5 C (97.7 F) 02/24/2024 10:18 AM EDT Respiratory Rate 18 02/24/2024 10:18 AM EDT Oxygen Saturation 98% 02/24/2024 10:18 AM EDT Inhaled Oxygen Concentration - - Weight 172.4 kg (380 lb) 02/24/2024 10:18 AM EDT Height 182.9 cm (6') 02/24/2024 10:18 AM EDT Body Mass Index 51.54 02/24/2024 10:18 AM EDT Plan of Treatment Health Maintenance Due Date Last Done Comments Depression Screening 1973 Adult BMI Follow Up Plan 1979 DTaP,Tdap and Td Vaccines (1 - Tdap) 01/13/1980 Zoster (Shingles) Vaccine (1 of 2) 2011 Tobacco Screening 05/29/2024 05/29/2023 Influenza Vaccine 01/30/2025 Adult BMI Screening 02/23/2025 02/24/2024 Medical Devices Not on file Insurance [employer] Care Teams Carrier Associate Relationship Specialty Start Date End Date Gaurav Wooten DO PCP - General Family Medicine 05/29/23
--- NOTE | 2025-01-28 16:54 | ECG_ITS ---
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
--- NOTE | 2025-01-28 16:54 | XR_ITS ---
The [place] [id number] Patient Name: JULISSA ROWLAND MRN: [id number] date: 1960 Sex: M Assigned Patient Location: ED.MAIN Current Patient Location: ED.MAIN Accession/Order Number: [id number] Exam Date: 01/28/2025 17:40 Report Date: 01/28/2025 18:20 At the request of: MANDY JOHNSON Procedure: XR chest 2V XR chest 2V 01/28/2025 5:44 PM SIGNS AND SYMPTOMS: Cough, chest pain PROTOCOL: Frontal and lateral radiograph of the chest COMPARISON: None FINDINGS: The trachea is midline. The heart and mediastinal structures are within normal limits. The lung parenchyma is clear. The bony thorax is intact. Degenerative changes are noted in the thoracic spine. XR/XR chest 2V IMPRESSION: No acute cardiopulmonary pathology. Impression dictated by: Michael Nina M.D. 01/28/2025 6:20 PM Dictation Location: [place] [address] Electronically authenticated by: [id number] Date: 01/28/2025 18:20
[2025-01-28 17:01] LABS: Hematocrit 37.8 % (42.0-54.0); Hemoglobin 12.1 g/dL (14.0-18.0); Immature Granulocytes Abs Auto 0.03 10^3/uL (0.00-0.03); Immature Granulocytes Pct Auto 0.5 % (0.0-0.5); Lymphocytes Absolute Auto 1.5 10^3/uL (1.2-3.8); Mean Corpuscular HGB Conc 32.0 g/dL (29.9-35.2); Mean Corpuscular Hemoglobin 28.4 pg (25.9-34.0); Mean Corpuscular Volume 88.7 fL (80.0-94.0); Platelet Count 228 10^3/uL (150-450); Red Blood Count 4.26 10^6/uL (4.70-6.10); White Blood Count 6.4 10^3/uL (4.0-11.0)
--- NOTE | 2025-01-28 17:08 | ED_ITS ---
HPI - SOB/Dyspnea General Chief Complaint: Shortness of Breath/Dyspnea Stated Complaint: sob Time Seen by Provider: 01/28/25 16:42 Source: patient Mode of arrival: Wheelchair Limitations: no limitations History of Present Illness HPI Narrative: The patient is a 65-year-old male with no significant past medical history who presents with shortness of breath, cough, denies chest pressure. He reports that his symptoms actually began about 1 month ago. He was evaluated at an urgent care 2 weeks ago, diagnosed with bronchitis, and prescribed steroids, which initially improved his symptoms. However, over the past 2 days, his shortness of breath and cough worsened again, particularly when lying down. He also notes bilateral leg swelling. He denies fever, nausea, vomiting, diarrhea, or upper respiratory congestion. He is a non-smoker and does not take any regular medications. Related Data Home oxygen amount: none Home Medications ?Medication ?Instructions ?Recorded ?Confirmed albuterol sulfate 90 mcg/actuation 2 inh inhalation Q4 H PRN shortness 01/28/25 01/28/25 aerosol inhaler of breath or wheezing Previous Rx's ?Medication ?Instructions ?Recorded albuterol sulfate 90 mcg/actuation 2 inh inhalation Q4 H PRN wheezing 01/28/25 aerosol inhaler #8.5 grams azithromycin 500 mg tablet See Rx Instructions PO .COM PLEX #6 01/28/25 (Zithromax) tabs ipratropium bromide 42 mcg (0.06 2 spray intranasal TI D PRN 01/28/25 %) nasal spray congestion #15 mL prednisone 20 mg tablet 40 mg (2 x 20 mg) PO DAILY 5 days 01/28/25 #10 tabs Allergies Allergy/AdvReac Type Severity Reaction Status Date / Time No Known Drug Allergies Allergy Verified 01/28/25 16:48 [facility] Medical History (Updated 01/28/25 @ 18:47 by ELIZABETH MARIE) Neck pain ?M54.2 - Cervicalgia (ICD-10) Obesity ?E66.9 - Obesity, unspecified (ICD-10) Kidney stone ?N20.0 - Calculus of kidney (ICD-10) Sleep apnea ?G47.30 - Sleep apnea, unspecified (ICD-10) Surgical History Hx of total knee arthroplasty ?Z96.659 - Presence of unspecified artificial knee joint (ICD-10) Social History Little interest or pleasure in doing things: not at all Feeling down, depressed, or hopeless: not at all Exam Narrative Exam Narrative: Geneal: Obese male, alert and oriented, in no acute distress. Ambulates without difficulty. Vital Signs: Temp 99?F, BP 122/68, HR 60, RR 18, SpO? 96% on room air. HEENT: Normocephalic, atraumatic. Oropharynx clear, mucous membranes moist. No JVD. Lungs: Wheezing in the right lung, diffuse rhonchi throughout, no rales. Normal respiratory effort. Cardiac: Regular rate and rhythm, no murmurs, rubs, or gallops. Abdomen: Obese, soft, nontender, nondistended, no rebound or guarding. Extremities: Bilateral 2+ pedal edema, distal pulses intact. Neuro: Alert and oriented ?3, no focal neurological deficits. Skin: Warm, dry, intact, no cyanosis. Constitutional Vital Signs, click to edit/add: Last Vital Signs Temp 99 F 01/28/25 16:43 Pulse 79 01/28/25 19:10 Resp 22 H 01/28/25 19:10 BP 107/73 01/28/25 18:01 Pulse Ox 97 01/28/25 19:10 O2 Del Method Room Air 01/28/25 17:15 Course Vital Signs Vital signs: Vital Signs Temperature 99 F 01/28/25 16:43 Pulse Rate 96 H 01/28/25 16:43 Respiratory Rate 18 01/28/25 16:43 Pulse Oximetry 96 01/28/25 16:43 Oxygen Delivery Method Room Air 01/28/25 16:43 Temperature 99 F 01/28/25 16:43 Pulse Rate 79 01/28/25 19:10 Respiratory Rate 22 H 01/28/25 19:10 Blood Pressure 107/73 01/28/25 18:01 Pulse Oximetry 97 01/28/25 19:10 Oxygen Delivery Method Room Air 01/28/25 17:15 MDM - SOB/Dyspnea MDM Narrative Medical decision making narrative: 65-year-old male with no significant past medical history presents with a 1- month history of cough and shortness of breath, with acute worsening over the past 2 days. He was previously treated at urgent care for presumed bronchitis with steroids and initially improved but redeveloped symptoms. On arrival, he is afebrile, hemodynamically stable, and not hypoxic. Exam notable for wheezing and rhonchi without rales, with bilateral pedal edema. Labs show normal WBC, normal chemistries except mildly elevated BUN, troponin 36, and BNP 101. Chest x-ray shows no pneumonia or pulmonary edema. Clinical picture most consistent with acute bronchitis versus COPD-like exacerbation, less likely ACS or CHF given stable troponin, BNP, and lack of rales/edema progression. Patient was treated with azithromycin, prednisone 40 mg x 5 days, Atrovent nasal spray, and prescribed albuterol inhaler (2 puffs every 4 hours as needed for wheezing and cough). He remained stable throughout ED course and was discharged with strict return precautions and instructions to follow up with primary care. Medical Records Attestation: I reviewed the patient's medical records. Lab Data Attestation: I reviewed the patient's lab results. Labs: Lab Results 01/28/25 01/28/25 Range/Units 16:50 17:45 WBC 6.4 (4.0-11.0) 10^3/uL RBC 4.26 L (4.70-6.10) 10^6/uL Hgb 12.1 L (14.0-18.0) g/dL Hct 37.8 L (42.0-54.0) % MCV 88.7 (80.0-94.0) fL MCH 28.4 (25.9-34.0) pg MCHC 32.0 (29.9-35.2) g/dL RDW 13.7 (11.0-15.0) % Plt Count 228 (150-450) 10^3/uL MPV 9.8 (9.5-13.5) fL Neut % (Auto) 67.4 (43.0-75.0) % Lymph % (Auto) 22.7 (20.5-60.0) % Roosevelt % (Auto) 7.0 (1.7-12.0) % Eos % (Auto) 1.9 (0.9-7.0) % Baso % (Auto) 0.5 (0.2-2.0) % Neut # (Auto) 4.3 (1.4-6.5) 10^3/uL Lymph # (Auto) 1.5 (1.2-3.8) 10^3/uL Roosevelt # (Auto) 0.5 (0.3-0.8) 10^3/uL Eos # (Auto) 0.1 (0.0-0.7) 10^3/uL Baso # (Auto) 0.0 (0.0-0.1) 10^3/uL Abs Immat Gran (auto) 0.03 (0.00-0.03) 10^3/uL Imm/Tot Granulo (auto) 0.5 (0.0-0.5) % PT 11.3 (9.0-11.6) sec INR 1.07 Sodium 143 (136-145) mmol/L Potassium 3.7 (3.5-5.1) mmol/L Chloride 106 (98-107) mmol/L Carbon Dioxide 26.4 (21.0-32.0) mmol/L Anion Gap 14.3 BUN 19.0 H (7.0-18.0) mg/dL Creatinine 1.01 (0.70-1.30) mg/dL Est GFR ( Amer) >60 (>=60 mL/min/1.73m^2) Est GFR (Non-Af Amer) >60 (>=60 mL/min/1.73m^2) BUN/Creatinine Ratio 18.8 Glucose 115 H (74-106) mg/dL Calcium 8.8 (8.5-10.1) mg/dL Troponin I High Sens 36.2 (4.0-76.1) pg/mL NT-Pro-B Natriuret Pep 101.0 (<=900.0) pg/mL Influenza Type A Ag Negative Influenza Type B Ag Negative SARS-CoV-2 Ag (CV2AG) Negative (NEGATIVE) Imaging Data Chest x-ray: Attestation: I have reviewed the pertinent imaging results. Radiologist's impression: ITS Impressions Chest X-Ray 01/28/25 16:54 IMPRESSION: No acute cardiopulmonary pathology. Impression dictated by: Michael Nina M.D. 01/28/2025 6:20 PM Dictation Location: [place] [address] Electronically authenticated by: [id number] Y Date: 01/28/2025 18:20 ECG Data Attestation: ?I have reviewed the pertinent ECG results. ECG interpretation date: 01/28/25 ECG interpretation time: 16:55 Prior ECG tracings: not available for review Interpretation: Patient is a rhythm with no ST depression or elevation. No signs of a STEMI. He has a heart rate of 85, DE of 188, QRS of 84, QT/QTc of 360/402, no ectopy normal intervals no abnormality no previous for comparison Discharge Plan Discharge Chief Complaint: Shortness of Breath/Dyspnea Clinical Impression: Upper respiratory infection, Bronchitis Patient Disposition: Home, Self-Care Time of Disposition Decision: 18:47 Condition: Good Prescriptions / Home Meds: New ipratropium bromide 42 mcg (0.06 %) spray,non-aerosol 2 spray intranasal TID PRN (Reason: congestion) Qty: 15 0RF Rx Instructions: administer into each nostril azithromycin [Zithromax] 500 mg tablet See Rx Instructions .ROUTE .COMPLEX Qty: 6 0RF Rx Instructions: For 250 mg dose pack: take 500 mg today (day 1), then 250 mg for 4 days (days 2-5) prednisone 20 mg tablet 40 mg PO DAILY 5 Days Qty: 10 0RF albuterol sulfate 90 mcg/actuation HFA aerosol inhaler 2 inh inhalation Q4H PRN (Reason: wheezing) Qty: 8.5 0RF No Action albuterol sulfate 90 mcg/actuation HFA aerosol inhaler 2 inh INHALATION Q4H PRN (Reason: shortness of breath or wheezing) Print Language: Latvian Instructions: Upper Respiratory Infection (ED), Acute Bronchitis (ED) Additional Instructions: Discharge Instructions You were seen today for cough, shortness of breath, and chest pressure. Your e valuation does not show pneumonia or heart failure. Your symptoms are most consistent with bronchitis. Medications * Azithromycin (Z-Moshe): Take as prescribed until finished. * Prednisone 40 mg: Take once daily for 5 days. * Ipratropium (Atrovent) nasal spray: Use as prescribed for congestion. * You may also use [id number] acetaminophen or ibuprofen as needed for discomfort, unless otherwise instructed. Self-Care at Home * Rest and drink plenty of fluids. * Avoid smoking or secondhand smoke. * Use a humidifier if your home air is dry. * Elevate your head with extra pillows if cough worsens when lying down. Follow-Up * Schedule a follow-up appointment with your primary care provider within the next week. Return to the ER Immediately If You Develop: * Worsening shortness of breath or wheezing * Chest pain or pressure * High fever or shaking chills * Swelling in your legs that is getting worse * Dizziness, fainting, or if you feel much sicker in general Referrals: Physician,Non-Staff, [Primary Care Provider] - 1 week Discharge Date/Time: 01/28/25 19:17
[2025-01-28] MEDS: IPRATROPIUM/ALBUTEROL SULFATE 3 ML AMPUL.NEB IH (17:14)
[2025-01-28 17:18] LABS: INR 1.07; Prothrombin Time 11.3 sec (9.0-11.6)
[2025-01-28 17:28] LABS: Anion Gap 14.3; Blood Urea Nitrogen 19.0 mg/dL (7.0-18.0); Calcium 8.8 mg/dL (8.5-10.1); Carbon Dioxide 26.4 mmol/L (21.0-32.0); Chloride 106 mmol/L (98-107); Estimated GFR (African America >60 (>=60 mL/min/1.73m^2); Estimated GFR (Non-African Ame >60 (>=60 mL/min/1.73m^2); Glucose 115 mg/dL (74-106); NT Pro B Type Natriuretic Pept 101.0 pg/mL (<=900.0); Potassium 3.7 mmol/L (3.5-5.1); Sodium 143 mmol/L (136-145)
[2025-01-28] MEDS: METHYLPREDNISOLONE SOD SUCC PF 125 MG/2 ML VIAL IVP (17:45)
[2025-01-28 18:23] LABS: SARS-CoV-2 Ag NEGATIVE (NEGATIVE)
== END 2025-01-28 19:17 | disposition home or self-care (01) ==
PROVIDERS: Physician Assistant; Emergency Provider Emergency Medicine
DX: J40 Bronchitis, not specified as acute or chronic (principal); J06.9 Acute upper respiratory infection, unspecified; Z96.659 Presence of unspecified artificial knee joint
CPT/HCPCS: 36415; 71046; 80048; 83880; 84484; 85025; 85610; 87804; 87811; 93005; 94640; 96374; 99285; J2919